=== PATIENT | female | born 1950 | race Caucasian/White ===

== ENCOUNTER 2017-04-03 05:50 | Inpatient (IN) | payer OTHER, SELFPAY ==
[2017-04-03] VITALS (16 sets, daily range): BP systolic 157–185; BP diastolic 71–100; PULSE 55–82; RESP 18–23; TEMP 36.6–37.5; O2SAT 96–100; BMI 26.5; BMI 25.7
--- NOTE | 2017-04-03 05:53 | EKG12_ITS ---
Test Reason : FALL Blood Pressure : / mmHG Vent. Rate : 056 BPM Atrial Rate : 056 BPM P-R Int : 160 ms QRS Dur : 074 ms QT Int : 434 ms P-R-T Axes : 079 059 100 degrees QTc Int : 418 ms Sinus bradycardia Nonspecific ST and T wave abnormality Abnormal ECG Confirmed by BAKARI BRYANT, MALISSA ([id number]), graphic editor COURTNEY RIOS ([id number]) on 04/05/2017 11:29:11 AM Referred By: ANIVAL Confirmed By:MALISSA VILLEGAS MD
--- NOTE | 2017-04-03 05:53 | CT_ITS ---
STUDY: CT BRAIN WITHOUT CONTRAST REASON FOR EXAM: Female, 66 years old. Left leg heaviness, numbness, then fell. Dizziness. History of hypertension, controlled RADIATION DOSAGE (If Supplied By Facility): CTDIvol = ( 44.99 ) mGy, DLP = ( 745.49 ) mGycm TECHNIQUE: Transaxial CT imaging of the brain was performed without administration of intravenous contrast material. Individualized dose optimization techniques were used for this CT. COMPARISON: None. FINDINGS: Normal soft tissue structures. Normal calvarium. Normal size ventricles and extra-axial spaces for the patient's age. There are areas of decreased attenuation within the white matter tracts of the supratentorial brain, consistent with microvascular disease changes. Remote right caudate infarct. Normal basal ganglia and thalami. Normal brainstem. Normal cerebellum. There is no intracranial hemorrhage. There are no findings of an acute ischemic infarction. Normal visualized paranasal sinuses. The bilateral mastoid air cells are clear. Total of 3 spot image is obtained with C-arm in the OR demonstrating open reduction and internal fixation (ORIF) of the femoral neck fracture with placement of metallic hardware. CT/Brain/Head without Contrast IMPRESSION: Chronic involutional changes of the brain. There is no acute intracranial pathology. Electronically Signed: Katie Greer MD at 6:34 EST , Service support ,
--- NOTE | 2017-04-03 05:58 | ED.DCSUM_ITS ---
- ER Visit Summary Date of Service: 04/03/17 Chief Complaint: Dizziness, left leg weakness, paresthesias History of Present Illness: The patient is a 66 F who woke up with some dizziness, left leg weakness and paresthesias. She states that when she woke up she felt dizzy and she tried to walk on her leg and she fell. She did not sustain any injuries from this. Her dizziness has improved but the leg weakness and paresthesias continue. She denies any headache. No nausea or vomiting. No history of strokes. Physical Examination: Vital signs are reviewed. HEENT exam unremarkable. Heart is regular rate and rhythm without murmurs. Lungs are clear to auscultation. Abdomen is soft and nontender. Extremities reveal no edema. NIH stroke scale is 2. She scores 1 left leg weakness and 1 paresthesias Test Results: CAT scan of the head reveals chronic changes. Laboratory studies are pending at this time. Emergency Department Course and Treatment: CAT scan shows no changes. I am concerned for possible TIA or stroke. Patient will require admission for further testing. Treatment Plan: Admission to the hospital Disposition: Admit Impression: Left leg weakness with paresthesias This note was generated with [employer] dictation software. It may contain incorrect words, spelling, and punctuation that were not noted in review of the chart prior to signing ED Disposition - Plan for ED Patient: Chief Complaint: Fall Referrals: Alix Bonner DO [Primary Care Provider] -
[2017-04-03 06:30] LABS: Bedside Glucose 90 mg/dL (70-110)
--- NOTE | 2017-04-03 06:50 | PCM.HP.STD ---
Problem List (1) COPD (chronic obstructive pulmonary disease) Status: Chronic Qualifiers: COPD type: unspecified COPD Qualified Code(s): J44.9 - Chronic obstructive pulmonary disease, unspecified (2) HTN (hypertension) Status: Chronic Qualifiers: Hypertension type: essential hypertension Qualified Code(s): I10 - Essential (primary) hypertension (3) Tobacco use Status: Chronic (4) left sided paresthesias Status: Acute (5) Left leg weakness Status: Acute History of Present Illness Date of Admission: 04/03/17 Chief Complaint: LLE weakness, L sided paresthesias The patient is a 66 y/o F w/ PMHx: Chronic COPD, HTN, Anxiety, Tobacco use who presents to the [facility] ED on 04/03/17 w/ history of awakening from bed at ~ 5 am, noted to feel dizzy, fell upon attempt to stand with following noted left leg weakness with paresthesias to the LLE and LUE. The dizziness improved, but she had ongoing weakness to the LLE and paresthesias to the L sided upper and lower extremity prompting ED presentation. NIH in the ED upon evaluation 2 for LLE weakness and paresthesias. Work-up in the ED included T 98.1, HR 60, BP 179/90, RR 21, 98% on RA, CT Head unremarkable. EKG SR rate 56. All ED labs pending upon admission request. Past Medical History Past Medical History (Chronic Problems): Chronic Problems COPD (chronic obstructive pulmonary disease) (Chronic) HTN (hypertension) (Chronic) Tobacco use (Chronic) Allergies No Known Allergies Allergy (Verified 04/03/17 05:56) Home Medications: Ambulatory Orders Medication Instructions Recorded Atenolol [Tenormin (beta shira)] 25 mg PO DAILY 04/03/17 Citalopram [Celexa] 20 mg PO DAILY 04/03/17 Fluticasone/Salmeterol [Advair 1 puff PO BID 04/03/17 250-50 Diskus] Lisinopril [Zestril] 10 mg PO DAILY 04/03/17 Surgical History: - - Appendectomy, BLTL. 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 Tobacco Use: Cigarettes Alcohol: None Drugs: None - *Family History Maternal History Items: No pertinent history Paternal History Items: Cancer Review of Systems Constitutional: Denies: Chills, Fever, Weight Change HEENT: Denies: Head Aches, Sinus Congestion, Sinus Drainage Cardiovascular: Denies: Chest Pain, Palpitations Respiratory: Denies: Cough, Shortness of breath at rest, Sputum production Gastrointestinal: Denies: Abdominal Pain, Nausea, Vomiting Genitourinary: Denies: Dysuria Musculoskeletal: Denies: Joint Pain, Joint Tenderness Skin: Denies: Rash, Wounds Neurological: Reports: Focal weakness, Numbness, Tingling Psychiatric: Reports: Anxiety. Denies: Depression, Homicidal Ideations, Suicidal Ideations Hematologic/ Lymphatic: Denies: Easy Bruising, Easy Bleeding VTE Information - Inpt Only VTE Present on Admission: No VTE Mechan Device Prophylaxis: SCD's VTE Pharm Prophylaxis ordered?: Yes Patient Problems: Active and Suspected Problems left sided paresthesias (Acute) Left leg weakness (Acute) Subjective: Seated upright in the ED bed, NAD, notes she has improved since initial presentation with less paresthesias and increased LLE strength. Objective: Physical Examination: General: awake, alert, oriented x 3 and cooperative, seated upright in the ED bed in no apparent distress. Skin: normal color, turgor, no icterus, cyanosis. HEENT: AT/NC, EOMI, PERRLA, mildly dry MM, no carotid bruits or JVD noted. Lungs: CTA bilaterally, moderate effort, mild decrease BL bases, no rales, ronchi or wheezing. Heart: Regular rate and rhythm; no gallop, rub audible. Abdomen: soft, NTTP, ND, normal BS, no HSM. Extremities: no cyanosis, clubbing, or edema. Neurological: patient awake, alert, oriented x 3; cognitive function intact; pupils equally reactive to light and accomodation; cranial nerves II-XII grossly normal, moving all 4 extremities, LLE 4/5 strength, minimal drift, FTN and HTN L mildly impaired, L sided paresthesias present, face not included, equiv babinski BL. Psychiatric: affect appears normal, no acute evidence of depressive or anxiety feelings. - Physical Exam Vital Signs Temp Pulse Resp BP Pulse Ox 98.1 F 59 L 21 H 176/90 H 98 04/03/17 05:51 04/03/17 05:53 04/03/17 05:53 04/03/17 05:53 04/03/17 05:58 Oxygen Flow Rate 2 Oxygen Delivery Method Nasal Cannula Weight: 149 lb 11.102 oz Body Mass Index (BMI) 26.5 Finger Stick Blood Glucose 90 POC Glucose 04/03/17 06:26 POC Glucose 90 Assessment/Plan Active and Suspected Problems left sided paresthesias (Acute) Left leg weakness (Acute) The patient is a 66 y/o F w/ PMHx: Chronic COPD, HTN, Anxiety, Tobacco use who presents to the [facility] ED on 04/03/17 w/ history of awakening from bed at ~ 5 am, noted to feel dizzy, fell, noted left leg weakness with paresthesias to the LLE. (1) L sided weakness (LLE) and L sided Paresthesias concerning for TIA/CVA: In the ED work-up included CT Head which was unremarkable. All labs are pending upon ED call for evaluation of patient. Patient was administered no medication in the ED. Will admit to PCU, will obtain MRI Brain, MRA Head and Neck, ECHO, PT/OT/Speech/Nutrition evaluation per protocol. Will allow permissive HTN, maintain on asa, add statin w/ pending AM FLP, fall precautions. Requested ED to administered ASA dose prior to admission. (2) Hypertension: Permissive pending MRI Brain. (3) Tobacco Abuse: Encouraged cessation, inpatient consultation per RT, NR if desired. (4) Anxiety: Continue home celexa regimen, ativan PRN w/ MRI as noted history of claustrophobia. (5) Chronic COPD: ATC duonebs, PRN albuterol, HOB, IS parameters. (6) DVT Prophylaxis: SCDs, lovenox. Code Visit OBSV E&M: 34542 Initial observation care L3
--- NOTE | 2017-04-03 06:59 | NURSING ---
DR DONALDSON FOR DR FLORIAN
--- NOTE | 2017-04-03 07:01 | HP.PCM_ITS ---
Problem List (1) COPD (chronic obstructive pulmonary disease) Status: Chronic Qualifiers: COPD type: unspecified COPD Qualified Code(s): J44.9 - Chronic obstructive pulmonary disease, unspecified (2) HTN (hypertension) Status: Chronic Qualifiers: Hypertension type: essential hypertension Qualified Code(s): I10 - Essential (primary) hypertension (3) Tobacco use Status: Chronic (4) left sided paresthesias Status: Acute (5) Left leg weakness Status: Acute History of Present Illness Date of Admission: 04/03/17 Chief Complaint: LLE weakness, L sided paresthesias The patient is a 66 y/o F w/ PMHx: Chronic COPD, HTN, Anxiety, Tobacco use who presents to the [facility] ED on 04/03/17 w/ history of awakening from bed at ~ 5 am, noted to feel dizzy, fell upon attempt to stand with following noted left leg weakness with paresthesias to the LLE and LUE. The dizziness improved, but she had ongoing weakness to the LLE and paresthesias to the L sided upper and lower extremity prompting ED presentation. NIH in the ED upon evaluation 2 for LLE weakness and paresthesias. Work-up in the ED included T 98.1, HR 60, BP 179/90, RR 21, 98% on RA, CT Head unremarkable. EKG SR rate 56. All ED labs pending upon admission request. Past Medical History Past Medical History (Chronic Problems): Chronic Problems COPD (chronic obstructive pulmonary disease) (Chronic) HTN (hypertension) (Chronic) Tobacco use (Chronic) Allergies No Known Allergies Allergy (Verified 04/03/17 05:56) Home Medications: Ambulatory Orders Medication Instructions Recorded Atenolol [Tenormin (beta shira)] 25 mg PO DAILY 04/03/17 Citalopram [Celexa] 20 mg PO DAILY 04/03/17 Fluticasone/Salmeterol [Advair 1 puff PO BID 04/03/17 250-50 Diskus] Lisinopril [Zestril] 10 mg PO DAILY 04/03/17 Surgical History: - - Appendectomy, BLTL. 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 Tobacco Use: Cigarettes Alcohol: None Drugs: None - *Family History Maternal History Items: No pertinent history Paternal History Items: Cancer Review of Systems Constitutional: Denies: Chills, Fever, Weight Change HEENT: Denies: Head Aches, Sinus Congestion, Sinus Drainage Cardiovascular: Denies: Chest Pain, Palpitations Respiratory: Denies: Cough, Shortness of breath at rest, Sputum production Gastrointestinal: Denies: Abdominal Pain, Nausea, Vomiting Genitourinary: Denies: Dysuria Musculoskeletal: Denies: Joint Pain, Joint Tenderness Skin: Denies: Rash, Wounds Neurological: Reports: Focal weakness, Numbness, Tingling Psychiatric: Reports: Anxiety. Denies: Depression, Homicidal Ideations, Suicidal Ideations Hematologic/ Lymphatic: Denies: Easy Bruising, Easy Bleeding VTE Information - Inpt Only VTE Present on Admission: No VTE Mechan Device Prophylaxis: SCD's VTE Pharm Prophylaxis ordered?: Yes Patient Problems: Active and Suspected Problems left sided paresthesias (Acute) Left leg weakness (Acute) Subjective: Seated upright in the ED bed, NAD, notes she has improved since initial presentation with less paresthesias and increased LLE strength. Objective: Physical Examination: General: awake, alert, oriented x 3 and cooperative, seated upright in the ED bed in no apparent distress. Skin: normal color, turgor, no icterus, cyanosis. HEENT: AT/NC, EOMI, PERRLA, mildly dry MM, no carotid bruits or JVD noted. Lungs: CTA bilaterally, moderate effort, mild decrease BL bases, no rales, ronchi or wheezing. Heart: Regular rate and rhythm; no gallop, rub audible. Abdomen: soft, NTTP, ND, normal BS, no HSM. Extremities: no cyanosis, clubbing, or edema. Neurological: patient awake, alert, oriented x 3; cognitive function intact; pupils equally reactive to light and accomodation; cranial nerves II-XII grossly normal, moving all 4 extremities, LLE 4/5 strength, minimal drift, FTN and HTN L mildly impaired, L sided paresthesias present, face not included, equiv babinski BL. Psychiatric: affect appears normal, no acute evidence of depressive or anxiety feelings. - Physical Exam Vital Signs Temp Pulse Resp BP Pulse Ox 98.1 F 59 L 21 H 176/90 H 98 04/03/17 05:51 04/03/17 05:53 04/03/17 05:53 04/03/17 05:53 04/03/17 05:58 Oxygen Flow Rate 2 Oxygen Delivery Method Nasal Cannula Weight: 149 lb 11.102 oz Body Mass Index (BMI) 26.5 Finger Stick Blood Glucose 90 POC Glucose 04/03/17 06:26 POC Glucose 90 Assessment/Plan Active and Suspected Problems left sided paresthesias (Acute) Left leg weakness (Acute) The patient is a 66 y/o F w/ PMHx: Chronic COPD, HTN, Anxiety, Tobacco use who presents to the [facility] ED on 04/03/17 w/ history of awakening from bed at ~ 5 am, noted to feel dizzy, fell, noted left leg weakness with paresthesias to the LLE. (1) L sided weakness (LLE) and L sided Paresthesias concerning for TIA/CVA: In the ED work-up included CT Head which was unremarkable. All labs are pending upon ED call for evaluation of patient. Patient was administered no medication in the ED. Will admit to PCU, will obtain MRI Brain, MRA Head and Neck, ECHO, PT /OT/Speech/Nutrition evaluation per protocol. Will allow permissive HTN, maintain on asa, add statin w/ pending AM FLP, fall precautions. Requested ED to administered ASA dose prior to admission. (2) Hypertension: Permissive pending MRI Brain. (3) Tobacco Abuse: Encouraged cessation, inpatient consultation per RT, NR if desired. (4) Anxiety: Continue home celexa regimen, ativan PRN w/ MRI as noted history of claustrophobia. (5) Chronic COPD: ATC duonebs, PRN albuterol, HOB, IS parameters. (6) DVT Prophylaxis: SCDs, lovenox. Code Visit OBSV E&M: 20751 Initial observation care L3
[2017-04-03] MEDS: Aspirin 325 MG Tablet PO (07:07)
--- NOTE | 2017-04-03 07:13 | NURSING ---
PCU OBS TIA/CVA WHITE
[2017-04-03 07:17] LABS: International Normalized Ratio 0.9; Partial Thromboplast Time 32.5 Seconds (24.1-36.2); Prothrombin Time (Protime)PT. 12.2 SECONDS (11.7-14.9)
[2017-04-03 07:29] LABS: Absolute Lymphocyte Count 0.61 X10^3/ul (0.83-4.51); Absolute Neutrophil Count 6.6 X10^3/uL (2.0-7.7); Basophil# 0.03 X10^3/uL; Basophil% 0.4 % (0-1); Eosinophil# 0.17 X10^3/uL; Eosinophils% 2.1 % (0-5); Hematocrit 36.4 % (37-47); Lymphocyte # 0.61 X10^3/ul (4.0); Lymphocyte % 7.6 % (19-41); Mean Corpuscular Hgb 30.1 pg (27.0-32.0); Mean Corpuscular Volume 91.2 fL (81-99); Mean Platelet Vol. 9.4 fl (6.2-12.0); Monocyte# 0.55 X10^3/uL; Monocyte% 6.9 % (0-10); Neutrophil # 6.64 X10^3/uL (2.7-7.7); Neutrophil % 82.9 % (47-70); Platelet Count 239 K/mm3 (150-450); RBC Distribution Width CV 14.1 % (11.6-14.6); RBC Distribution Width SD 46.2 fl (35.1-43.9); Red Blood Count 3.99 M/mm3 (4.2-5.4)
[2017-04-03 07:30] LABS: Anion Gap 5 (5-15); BUN 16 mg/dL (7-18); BUN/Creat Ratio 17.9 RATIO (10-20); Calcium,Total 8.4 mg/dL (8.5-10.1); Chloride 102 mmol/L (98-107); Creatinine, Serum 0.89 mg/dL (0.55-1.02); EST Glomerular Filtration Rate 67 mL/min (>60); Est Glom Filt Rate - Afr Amer 82 mL/min (>60); Estimated Creatinine Clearance 52.83 ml/min; Glucose 92 mg/dL (70-110); Potassium 4.4 mmol/L (3.5-5.1); Sodium Level 133 mmol/L (136-145)
[2017-04-03 07:37] LABS: POSITIVE COUNT NO; POSITIVE DIFFERENTIAL NO; POSITIVE MORPHOLOGY NO
--- NOTE | 2017-04-03 08:20 | ECHOD_ITS ---
Reason For Study: TIA/CVA Procedure This was a 2D Doppler, Color Flow transthoracic echocardiogram. The exam was of adequate technical quality. Exam performed portable in patient room. Left Ventricle Normal LV size. Left ventricular systolic function is normal. The estimated ejection fraction is 65 %. No regional wall motion abnormalities noted. Right Ventricle Normal RV size. Normal systolic function. Atria The left atrium is mildly enlarged. Normal right atrium. No doppler evidence for ASD. Bubble contrast study negative for right to left interatrial shunt. Mitral Valve There is no mitral annular calcification. Normal mitral valve. Mild (1+) mitral valve insufficiency. Tricuspid Valve Normal tricuspid valve. Mild tricuspid valve insufficiency. Right ventricular systolic pressure estimated to be 41 mmHg. Aortic Valve Trisinus/trileaflet aortic valve. Mild focal aortic valve thickening. Pulmonic Valve The pulmonic valve is not well visualized. Trivial pulmonic valve insufficiency. Great Vessels Normal sized aortic root. Calcified aortic root. Pericardium/Pleural No pericardial effusion. Medication Performed a rapid injection of agitated mix of 9 cc saline and 1cc air to assess for atrial septal defect. MMode/2D Measurements & Calculations LVIDd: 4.5 cm IVSd: 1.2 cm Ao root diam: 2.8 cm LVIDs: 3.3 cm LVPWd: 1.1 cm LA dimension: 3.4 cm RVDd: 3.8 cm FS: 27.7 % LAV(MOD-bp): 70.3 ml LA A4 area: 20.6 cm2 RA A4 area: 18.2 cm2 LAV(MOD-bp) Indexed: 41.2 ml/m2 LAV(MOD-sp2): 72.0 ml LAV(MOD-sp4): 65.0 ml Doppler Measurements & Calculations MV E max santiago: 71.4 cm/sec Lat Peak E' Santiago: 6.2 cm/sec Med Peak E' Santiago: 5.9 cm/sec MV A max santiago: 92.2 cm/sec E/E' lat: 11.5 E/E' med: 12.1 MV E/A: 0.77 Ao V2 max: 127.2 cm/sec LV V1 max: 103.2 cm/sec PA V2 max: 91.8 cm/sec Ao max P.5 mmHg LV V1 max P.3 mmHg TR max santiago: 305.4 cm/sec TR max P.6 mmHg Interpretation Summary Left ventricular systolic function is normal. The estimated ejection fraction is 65 %. The left atrium is mildly enlarged. Mild (1+) mitral valve insufficiency. Mild tricuspid valve insufficiency. Mild focal aortic valve thickening. Trivial pulmonic valve insufficiency. Calcified aortic root. Right ventricular systolic pressure estimated to be 41 mmHg. Ordering Physician: Barbara Avelar Referring Physician: Alix Bonner Performed By: Roxane Newton RDCS, RVT
--- NOTE | 2017-04-03 08:20 | MRI_ITS ---
STUDY: MRA NECK WITHOUT CONTRAST REASON FOR EXAM: Female, 66 years old. Weakness and dizziness. TECHNIQUE: Source images were obtained, MIPs were performed. The study was performed unenhanced. Most of the images are limited by patient motion. COMPARISON: None. FINDINGS: RIGHT CAROTID ARTERIES: Normal right common carotid artery (CCA). There is mild atherosclerotic plaque formation with minimal narrowing of the right carotid bulb. There is mild atherosclerotic plaque formation of the origin of the right internal carotid artery with less than 50% cross sectional diameter stenosis. Normal visualized cervical portion of the right internal carotid artery. Normal origin of the right external carotid artery (ECA). LEFT CAROTID ARTERIES: Normal left common carotid artery (CCA). There is mild atherosclerotic plaque formation with minimal narrowing of the left carotid bulb. There is mild atherosclerotic plaque formation of the origin of the left internal carotid artery with less than 50% cross sectional diameter stenosis. There is atherosclerotic tortuous elongation of the cervical portion of the left internal carotid artery. Normal origin of the left external carotid artery (ECA). VERTEBRAL ARTERIES: Normal antegrade flow within the bilateral vertebral artery without a hemodynamically significant stenosis. MRI/MRA Neck without Contrast IMPRESSION: Technically limited MRA due to patient motion without evidence for vascular occlusion. Electronically Signed: Veronica Salazar MD at 15:09 EST , Service support ,
--- NOTE | 2017-04-03 08:20 | MRI_ITS ---
STUDY: MRA OF THE HEAD WITHOUT CONTRAST REASON FOR EXAM: Female, 66 years old. Left-sided weakness and numbness. TECHNIQUE: 3-D lads-di-cgvpef (TOF) imaging was performed with MIPs. The study was performed unenhanced. COMPARISON: MRI the brain dated April 03, 2017. FINDINGS: Normal bilateral petrous carotid arteries. There is ectatic elongation and tortuosity of the right cavernous carotid artery, without a demonstrated hemodynamically significant stenosis. There is ectatic elongation and tortuosity of the left cavernous carotid artery, without a demonstrated hemodynamically significant stenosis. Normal right A1 segments of the anterior cerebral artery. Normal left A1 segments of the anterior cerebral artery. Normal intact anterior communicating artery (ACOM). Normal bilateral A2 segments of the anterior cerebral arteries. There is irregularity of the right M1 and M2 branches with minimal luminal narrowing, suggesting atherosclerotic plaque formation, without an occlusion. There is irregularity of the left M1 and M2 branches with minimal luminal narrowing, suggesting atherosclerotic plaque formation, without an occlusion. There is non-visualization of the right posterior communicating artery (PCOM). There is non-visualization of the left posterior communicating artery (PCOM). Normal bilateral vertebral arteries. There is tortuosity with elongation of the basilar artery. The visualized bilateral superior cerebellar (SCA) arteries are normal. Normal bilateral P1, P2 and visualized P3 segments of the posterior cerebral arteries. There is no demonstrated aneurysm of the red devil of [place]. There is no major vessel occlusion or hemodynamically significant stenosis. There are mild involutional changes of the brain. MRI/MRA Head ONLY without Contrast IMPRESSION: 1. 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 2. No MRA evidence for hemodynamically significant stenosis with generally ectatic arteries of the red devil of [place]. Electronically Signed: Veronica Salazar MD at 15:15 EST , Service support ,
--- NOTE | 2017-04-03 08:20 | MRI_ITS ---
STUDY: MRI BRAIN WITHOUT CONTRAST REASON FOR EXAM: Female, 66 years old. Left-sided weakness and numbness. TECHNIQUE: Standardized multiplanar fat and water weighted pulse sequences were obtained. COMPARISON: CT of the head dated April 03, 2017. FINDINGS: There is mild cerebral atrophy with widening of the extra-axial spaces and ventricular dilatation. There are multiple white matter hyperintensities, distributed throughout the deep white matter tracts of the cerebral hemispheres, consistent with moderate chronic white matter ischemic changes. Appears to be a small focus of restricted diffusion within the right thalamus as well as the posterior limb of the right internal capsule. This has the appearance of an acute infarct. Normal T2* images of the brain without demonstrated susceptibility artifact. There is no demonstrated hemosiderin stain. There are prominent perivascular spaces (PVS) involving the basal ganglia. Normal thalami. There is no extra-axial fluid accumulation. Normal flow voids within the major intracranial circulation suggesting patency by spin echo criteria. There is ectatic tortuosity of the cavernous carotid arteries. There is tortuosity of the vertebrobasilar arteries. Normal sella turcica, pituitary gland, infundibular stalk, optic chiasm and hypothalamus. Normal tectal plate and pineal gland. There are chronic white matter ischemic changes of the cosme. The midbrain and medulla are otherwise normal. Normal cerebellum. There are large basal cisterns. Normal bilateral temporal bones. Normal bilateral internal auditory canals. There are bilateral ocular lens implants with otherwise normal intraorbital contents. There is mucoperiosteal inflammatory disease of the paranasal sinuses consistent with mild chronic sinusitis. There is moderate deviation of nasal septum towards the right. Normal calvarium and skull base. Normal visualized soft tissue structures. Normal visualized upper cervical spine. MRI/Brain without Contrast IMPRESSION: 1. Involutional changes of the brain, as described above. 2. Acute infarct involving the right thalamus and posterior limb of the right internal capsule. Electronically Signed: Veronica Salazar MD at 15:31 EST , Service support ,
[2017-04-03 08:54] LABS: Magnesium 2.1 mg/dL (1.6-2.6); Thyroid Stim Hormone (TSH) 3.84 uIU/mL (0.358-3.74)
[2017-04-03] MEDS: 0.9% Normal Saline 1,000 ML 100 ML IV (10:21)
[2017-04-03] MEDS: Atorvastatin Calcium 80 MG Tablet PO (10:23)
[2017-04-03] MEDS: Famotidine 20 MG Tablet PO ×2 (10:23→23:35)
[2017-04-03] MEDS: Citalopram 20 MG Tablet PO (10:23)
[2017-04-03] MEDS: Enoxaparin 40 MG/0.4 ML Syringe SC (10:23)
[2017-04-03] MEDS: LORazepam 0.5 MG Tablet PO (11:44)
[2017-04-03] MEDS: Ipratropium/Albuterol Sulfate 3 ML AMPUL.NEB INHALATION (19:25)
[2017-04-04] VITALS (16 sets, daily range): BP systolic 151–182; BP diastolic 71–109; PULSE 63–79; RESP 16–20; TEMP 36.6–37.5; O2SAT 96–100; BMI 25.7
[2017-04-04 03:19] LABS: Mucous, Urine 0 SEEN /hpf (<or=2+); Red Blood Cells-Urine 0 SEEN /hpf (0-5)
[2017-04-04 03:40] LABS: Color, Urine Yellow (Yellow); Glucose, Dipstick Normal (Normal); Ketone-Dipstick Negative (Negative); Leukocyte Esterase-Dipstick Negative /ul (Negative); Nitrite-Dipstick Negative (Negative); Occult Blood-Urine 10 /ul (Negative); Protein-Dipstick 15 mg/dl (Negative); Urine Bilirubin Dipstick Negative (Negative); Urine Clarity Sl. Cloudy (Clear); Urine Urobilinogen Normal (Normal)
[2017-04-04 03:45] LABS: Bacteria 1+ /hpf (None Seen); Squamous Epithelial Cells - UA 0-5 SEEN /hpf (5-10); White Blood Cells 0-5 SEEN /hpf (0-5)
[2017-04-04 05:57] LABS: Cholesterol 140 mg/dL (200); High Density Lipoprotein 51 mg/dL; Triglycerides 69 mg/dL; Very Low Density Lipoprotein 14 mg/dL (5-40)
[2017-04-04] MEDS: Ipratropium/Albuterol Sulfate 3 ML AMPUL.NEB INHALATION ×3 (06:59→18:54)
--- NOTE | 2017-04-04 08:25 | PN_ITS ---
Patient Problems: Active and Suspected Problems left sided paresthesias (Acute) Left leg weakness (Acute) Subjective: Patient with no acute events overnight per self and per nursing report. Patient notes that she does have mildly increased strength in the left side but still having difficulty ambulating and does need assistance. She states that the paresthesias have mildly improved. She is amenable to acute rehab. Discussed results of MRI and plans for acute therapies. Noted pending neurology evaluation as well as rehab evaluation. Patient denies fevers, chills , nausea, emesis, abdominal pain, chest pain or dyspnea. Objective: Physical Examination: General: awake, alert, oriented x 3 and cooperative, seated upright in the bed in no apparent distress. Skin: normal color, turgor, no icterus, cyanosis. HEENT: AT/NC, EOMI, PERRLA, improved less dry MM. Lungs: CTA bilaterally, moderate effort, mild decrease BL bases, no rales, ronchi or wheezing. Heart: Regular rate and rhythm; no gallop, rub audible. Abdomen: soft, NTTP, ND, normal BS. Extremities: no cyanosis, clubbing, or edema. Neurological: patient awake, alert, oriented x 3; cognitive function intact; pupils equally reactive to light and accomodation; cranial nerves II-XII grossly normal, moving all 4 extremities, ongoing LLE 4/5 strength, still mild drift, FTN and HTN L mildly impaired, L sided paresthesias present but she notes subjectively improved, face remains uninvolved, equiv babinski BL, gait imbalance. Psychiatric: affect appears normal, no acute evidence of depressive or anxiety feelings. Vitals/I&O's: Vital Signs Temp Pulse Resp BP Pulse Ox 97.8 F 70 16 165/94 H 97 04/04/17 05:40 04/04/17 07:18 04/04/17 06:59 04/04/17 05:40 04/04/17 06:59 Oxygen Delivery Method Room Air Body Mass Index (BMI) 25.7 Intake and Output for Last 24 Hours 04/02/17 04/03/17 04/04/17 23:59 23:59 23:59 Intake Total 1080 / 1442 Balance 1080 / 1442 Laboratory Results 04/04/17 02:00: Urine Color Yellow, Urine Clarity Sl. Cloudy, Urine pH 7.0, Ur Specific [place] 1.010, Urine Protein 15 H, Urine Glucose (UA) Normal, Urine Ketones Negative, Urine Occult Blood 10 H, Urine Nitrite Negative, Urine Bilirubin Negative, Urine Urobilinogen Normal, Ur Leukocyte Esterase Negative, Urine RBC 0 SEEN, Urine WBC 0-5 SEEN, Ur Squamous Epith Cells 0-5 SEEN, Urine Bacteria 1+, Urine Mucus 0 SEEN 04/04/17 05:05: Triglycerides 69, Cholesterol 140, LDL Cholesterol 75, VLDL Cholesterol 14, HDL Cholesterol 51 Current Medications Acetaminophen (Tylenol) 650 mg PO Q4H PRN PRN PRN Reason: Headache/Temp>99F Acetaminophen (Tylenol) 650 mg RECTAL Q4H PRN PRN PRN Reason: Headache/Temp>99F Acetaminophen (Tylenol Liquid) 650 mg NG Q4H PRN PRN PRN Reason: Headache/Temp>99F Al Hydroxide/Mg Hydroxide (Mylanta Ii) 30 ml PO Q6H PRN PRN PRN Reason: Gastric burning Albuterol Sulfate (Ventolin Aerosols) 2.5 mg INHALATION Q2H PRN PRN PRN Reason: dyspnea, wheezing' Albuterol/Ipratropium (Duoneb) 3 ml INHALATION Q6HWA.RT [facility] Last Admin: 04/04/17 06:59 Dose: 3 ml Aspirin (Aspirin, Baby) 81 mg PO DAILY@0800 [facility] Last Admin: 04/03/17 10:23 Dose: Not Given Atorvastatin Calcium (Lipitor) 80 mg PO DAILY [facility] Last Admin: 04/03/17 10:23 Dose: 80 mg Citalopram Hydrobromide (Celexa) 20 mg PO DAILY [facility] Last Admin: 04/03/17 10:23 Dose: 20 mg Enoxaparin Sodium (Lovenox) 40 mg SC DAILY@1000 [facility] Last Admin: 04/03/17 10:23 Dose: 40 mg Famotidine (Pepcid) 20 mg PO BID [facility] Last Admin: 04/03/17 23:35 Dose: 20 mg Lisinopril (Zestril) 10 mg PO DAILY [facility] Magnesium Hydroxide (Milk Of Magnesia) 30 ml PO DAILY PRN PRN Reason: Constipation Ondansetron HCl (Zofran) 4 mg IV Q8H PRN PRN PRN Reason: NAUSEA Promethazine HCl (Phenergan (Ll)) 12.5 mg IV Q6H PRN PRN PRN Reason: NAUSEA/VOMITING Assessment/Plan Active and Suspected Problems left sided paresthesias (Acute) Left leg weakness (Acute) The patient is a 66 y/o F w/ PMHx: Chronic COPD, HTN, Anxiety, Tobacco use who presents to the [facility] ED on 04/03/17 w/ history of awakening from bed at ~ 5 am, noted to feel dizzy, fell, noted left leg weakness with paresthesias to the LLE. (1) L sided weakness (LLE) and L sided Paresthesias concerning for TIA/CVA: In the ED work-up included CT Head which was unremarkable. All labs are pending upon ED call for evaluation of patient. Patient was administered ASA in the ED following discussion with ED physician as not taking routinely at home. Admitted to PCU, MRI brain w/ acute infarct involving the right thalamic and posterior limb of the right internal capsule, MRA of the head with incomplete ramona of Cervantes with no MRA evidence of hemodynamically significant stenosis with generally ectatic arteries of the ramona of Cerv[place], MRA of the neck without evidence for vascular occlusion although technically limited secondary to motion, echo with normal LV systolic function, EF 65%, mildly enlarged LA, mild MV insufficiency, mild TV insufficiency, trivial PV insufficiency, RVSP 41 mmHg. Neurology consulted given these findings. PT, OT with likely acute rehabilitation recommendation. Will plan restart lisinopril 04/04/17 AM (24 hours out) with goal then <160/90 given timeline. FLP in AM. Mag normal. TSH mildly elevated with normal FT4, subclinical with repeat outpatient. (2) Hypertension: Will plan restart lisinopril 04/04/17 AM (24 hours out) with goal then <160/90 given timeline. (3) Tobacco Abuse: Encouraged cessation, inpatient consultation per RT, NR if desired. (4) Anxiety: Continue home celexa regimen, ativan PRN w/ MRI as noted history of claustrophobia. (5) Chronic COPD: ATC duonebs, PRN albuterol, HOB, IS parameters. (6) DVT Prophylaxis: SCDs, lovenox. Code Visit Inpatient E&M: 29609 Subs Hosp L2
[2017-04-04] MEDS: Famotidine 20 MG Tablet PO ×2 (09:37→21:25)
[2017-04-04] MEDS: Atorvastatin Calcium 80 MG Tablet PO (09:37)
[2017-04-04] MEDS: Lisinopril 10 MG Tablet PO (09:37)
[2017-04-04] MEDS: Aspirin 81 MG TAB.CHEW PO (09:37)
[2017-04-04] MEDS: Citalopram 20 MG Tablet PO (09:37)
[2017-04-04] MEDS: Enoxaparin 40 MG/0.4 ML Syringe SC (09:38)
--- NOTE | 2017-04-04 10:02 | CASEMGMT ---
YAJAIRA spoke with patient. She is normally independent. She has no equipment at home. Discussed [facility] 4th floor inpatient rehab unit. She seemed interested, but then her cell phone rang and she answered it. YAJAIRA then spoke with Dr Avelar and she said she spoke with patient also and she agreed to go to the rehab unit. YAJAIRA called Zara in the rehab unit and she will look at patient and start the pre-cert. Plan: [facility] 4th floor rehab unit pending insurance approval. Lynn COBB MSW
[2017-04-04] MEDS: Acetaminophen 325 MG Tablet 650 MG PO (14:36)
--- NOTE | 2017-04-04 14:40 | CON.PCM_ITS ---
Problem List (1) Stroke Status: Acute Qualifiers: Precerebral and cerebral artery: posterior cerebral artery Laterality of affected vessel: right Reason for Consult Date of Consultation: 04/04/17 Reason for Consultation: stroke History of Present Illness: The patient is a 66 year old CF with PMH HTN, COPD, Anxiety, panic attack admitted with acute onset left side weakness and numbness. Per patient she woke up yesterday (04/03/17) with left sided numbness and weakness, could not walk due to weakness, slid down the bed, NIHSS was 2 on admission, was not a tpa candidate, MRI brain done on admission showed acute right thalamic stroke/right IC stroke, MRA head/neck did not show any hemodynamically significant stenosis or occlusion. At present patient continues to have left sided weakness and numbness but denies any QUICK or visual disturbances. Patient lives with her , does not need any assistance for her ADLs, denies any frequent falls, does drive, does not use cane or walker to ambulate. Patient was not taking ASA prior to admission. [] Past Medical History Past Medical History (Chronic Problems): Chronic Problems COPD (chronic obstructive pulmonary disease) (Chronic) HTN (hypertension) (Chronic) Tobacco use (Chronic) Allergies No Known Allergies Allergy (Verified 04/03/17 05:56) Home Medications: Ambulatory Orders Medication Instructions Recorded Atenolol [Tenormin (beta shira)] 25 mg PO DAILY 04/03/17 Citalopram [Celexa] 20 mg PO DAILY 04/03/17 Fluticasone/Salmeterol [Advair 1 puff PO BID 04/03/17 250-50 Diskus] Lisinopril [Zestril] 10 mg PO DAILY 04/03/17 Surgical History: - - Appendectomy, BLTL. Psychiatric History: Anxiety [employer] History: No pertinent [employer] history Lives: Spouse/ Significant Other Smoking Status: Current some day smoker Tobacco Use: Cigarettes Alcohol: None Drugs: None - *Family History Maternal History Items: No pertinent history Paternal History Items: Cancer Review of Systems Constitutional: Reports: - - complete ROS negative except as documented in HPI Patient Problems: Active and Suspected Problems left sided paresthesias (Acute) Left leg weakness (Acute) Stroke (Acute) - Physical Exam General: Alert, Oriented x3, Cooperative HEENT: Atraumatic, PERRLA, EOMI, Normocephalic Neck: Supple, No JVD, Negative Carotid Bruits Lungs: Clear to auscultation, Normal air movement Cardiovascular: Regular rate, No murmurs Abdomen: Bowel Sounds Present, Soft, Non Tender Extremities: No edema, Capillary Refill Less than 3 Seconds Skin: No rashes, No breakdown Musculoskeletal: No Tenderness to Palpation of Joints or Extremities Neurological: - - consious, alert, AoA x3, CN 2-12 grossly intact, power 5/5 right UE/LE, 4/5 Left UE/LE, drift present Left UE, Plantars right flexor, left extensor, mild sensory loss to light touch left side, no cerebellar signs, Reflexes + B/L B/S/T/K/A, gait deferred, NIHSS 2 at present. Psych/Mental Status: Normal Affect, Appropriate Vital Signs Temp Pulse Resp BP Pulse Ox 98.3 F 65 18 168/84 H 99 04/04/17 13:35 04/04/17 13:35 04/04/17 13:35 04/04/17 13:35 04/04/17 13:35 Oxygen Delivery Method Room Air Body Mass Index (BMI) 25.7 Intake and Output for Last 24 Hours 04/02/17 04/03/17 04/04/17 23:59 23:59 23:59 Intake Total 1080 / 1442 360 / 360 Balance 1080 / 1442 360 / 360 Laboratory Tests Past 24 Hrs 04/04/17 04/04/17 02:00 05:05 Triglycerides 69 Cholesterol 140 LDL Cholesterol 75 VLDL Cholesterol 14 HDL Cholesterol 51 Urine Color Yellow Urine Clarity Sl. Cloudy Urine pH 7.0 Ur Specific [place] 1.010 Urine Protein 15 H Urine Glucose (UA) Normal Urine Ketones Negative Urine Occult Blood 10 H Urine Nitrite Negative Urine Bilirubin Negative Urine Urobilinogen Normal Ur Leukocyte Esterase Negative Urine RBC 0 SEEN Urine WBC 0-5 SEEN Ur Squamous Epith Cells 0-5 SEEN Urine Bacteria 1+ Urine Mucus 0 SEEN Assessment/Plan Active and Suspected Problems left sided paresthesias (Acute) Left leg weakness (Acute) Stroke (Acute) The patient is a 66 year old CF with PMH HTN, COPD, Anxiety, panic attack admitted with acute onset left side weakness and numbness. Per patient she woke up yesterday (04/03/17) with left sided numbness and weakness, could not walk due to weakness, slid down the bed, NIHSS was 2 on admission, was not a tpa candidate, MRI brain done on admission showed acute right thalamic stroke/right IC stroke, MRA head/neck did not show any hemodynamically significant stenosis or occlusion. At present patient continues to have left sided weakness and numbness but denies any QUICK or visual disturbances. Patient lives with her , does not need any assistance for her ADLs, denies any frequent falls, does drive, does not use cane or walker to ambulate. Patient was not taking ASA prior to admission. Impression Right Thalamic/IC acute stroke Plan -Recommend ASA 81 mg daily and Plavix 75 mg daily. Dual AP for 1 month then switch to single AP. Bleeding risks discussed in detail with the patient and family, they understand and agree with the same. -Recommend Lipitor 80 mg PO q hs -MRI brain and MRA head/neck images reviewed -TTE-EF 65%, mildly dilated LA, no PFO -LDL-75, [id number] -Recommend 30 day event recorder on discharge -Patient counseled stroke risk factors, counseled to stop smoking which increases stroke risk, patient understands the same. -Goal BP < 130/80 mmHg and Hba1c < 7%. -GI/DVT prophylaxis -Recommend PT/OT -Fall precautions. -Follow up with Neurology as outpatient in 2-3 weeks -Thank you for allowing us to participate in patients care and management I spent 60 minutes taking history, doing physical examination, reviewing medical records, coordinating care and counseling the patient. Code Visit Inpatient E&M: 26807 Init Hosp L3
[2017-04-04] MEDS: Clopidogrel Bisulfate 75 MG Tablet PO (16:25)
[2017-04-04] MEDS: HYDROCHLOROTHIAZIDE 12.5 MG CAPSULE PO (16:25)
[2017-04-05] VITALS (10 sets, daily range): BP systolic 166–176; BP diastolic 78–93; PULSE 63–85; RESP 16–20; TEMP 36.6–37.1; O2SAT 97–98; BMI 25.7
[2017-04-05] MEDS: Ipratropium/Albuterol Sulfate 3 ML AMPUL.NEB INHALATION ×2 (07:02→13:00)
--- NOTE | 2017-04-05 08:09 | PCM.PN.HOSP ---
Patient Problems: Active and Suspected Problems left sided paresthesias (Acute) Left leg weakness (Acute) Stroke (Acute) Vitals/I&O's: Vital Signs Temp Pulse Resp BP Pulse Ox 98.6 F 63 16 171/90 H 98 04/05/17 06:08 04/05/17 07:21 04/05/17 07:02 04/05/17 06:08 04/05/17 07:02 Oxygen Delivery Method Room Air Body Mass Index (BMI) 25.7 Intake and Output for Last 24 Hours 04/03/17 04/04/17 04/05/17 23:59 23:59 23:59 Intake Total 1080 / 1442 1195 / 1195 250 / 250 Output Total 750 / 750 400 / 400 Balance 1080 / 1442 445 / 445 -150 / -150 Current Medications Acetaminophen (Tylenol) 650 mg PO Q4H PRN PRN PRN Reason: Headache/Temp>99F Last Admin: 04/04/17 14:36 Dose: 650 mg Acetaminophen (Tylenol) 650 mg RECTAL Q4H PRN PRN PRN Reason: Headache/Temp>99F Acetaminophen (Tylenol Liquid) 650 mg NG Q4H PRN PRN PRN Reason: Headache/Temp>99F Al Hydroxide/Mg Hydroxide (Mylanta Ii) 30 ml PO Q6H PRN PRN PRN Reason: Gastric burning Albuterol Sulfate (Ventolin Aerosols) 2.5 mg INHALATION Q2H PRN PRN PRN Reason: dyspnea, wheezing' Albuterol/Ipratropium (Duoneb) 3 ml INHALATION Q6HWA.RT [facility] Last Admin: 04/05/17 07:02 Dose: 3 ml Aspirin (Aspirin, Baby) 81 mg PO DAILY@0800 [facility] Last Admin: 04/04/17 09:37 Dose: 81 mg Atorvastatin Calcium (Lipitor) 80 mg PO DAILY [facility] Last Admin: 04/04/17 09:37 Dose: 80 mg Citalopram Hydrobromide (Celexa) 20 mg PO DAILY [facility] Last Admin: 04/04/17 09:37 Dose: 20 mg Clopidogrel Bisulfate (Plavix) 75 mg PO DAILY [facility] Last Admin: 04/04/17 16:25 Dose: 75 mg Enoxaparin Sodium (Lovenox) 40 mg SC DAILY@1000 [facility] Last Admin: 04/04/17 09:38 Dose: 40 mg Famotidine (Pepcid) 20 mg PO BID [facility] Last Admin: 04/04/17 21:25 Dose: 20 mg Hydrochlorothiazide (Hydrochlorothiazide) 12.5 mg PO DAILY [facility] Last Admin: 04/04/17 16:25 Dose: 12.5 mg Lisinopril (Zestril) 10 mg PO DAILY [facility] Last Admin: 04/04/17 09:37 Dose: 10 mg Magnesium Hydroxide (Milk Of Magnesia) 30 ml PO DAILY PRN PRN Reason: Constipation Ondansetron HCl (Zofran) 4 mg IV Q8H PRN PRN PRN Reason: NAUSEA Promethazine HCl (Phenergan (Ll)) 12.5 mg IV Q6H PRN PRN PRN Reason: NAUSEA/VOMITING Assessment/Plan Active and Suspected Problems left sided paresthesias (Acute) Left leg weakness (Acute) Stroke (Acute) The patient is a 66 y/o F w/ PMHx: Chronic COPD, HTN, Anxiety, Tobacco use who presents to the [facility] ED on 04/03/17 w/ history of awakening from bed at ~ 5 am, noted to feel dizzy, fell, noted left leg weakness with paresthesias to the LLE. (1) L sided weakness (LLE) and L sided Paresthesias concerning for TIA/CVA: In the ED work-up included CT Head which was unremarkable. All labs are pending upon ED call for evaluation of patient. Patient was administered ASA in the ED following discussion with ED physician as not taking routinely at home. Admitted to PCU, MRI brain w/ acute infarct involving the right thalamic and posterior limb of the right internal capsule, MRA of the head with incomplete huslia of Cervantes with no MRA evidence of hemodynamically significant stenosis with generally ectatic arteries of the hus[place] of [place], MRA of the neck without evidence for vascular occlusion although technically limited secondary to motion, echo with normal LV systolic function, EF 65%, mildly enlarged LA, mild MV insufficiency, mild TV insufficiency, trivial PV insufficiency, RVSP 41 mmHg. TSH mildly elevated with normal FT4, subclinical with repeat outpatient. Mag normal. FLP obtained and maintained on statin. Neurology consulted with recommendations including ASA 81 mg daily and Plavix 75 mg daily w/ planned dual AP for 1 month then switch to single AP, recommendation 30 day event recorder upon discharge from acute rehabilitation, Goal BP < 130/80 mmHg and Hba1c < 7% with additionally plan for follow up with Neurology as outpatient in 2-3 weeks. PT, OT consulted with recommendation for acute rehabilitation, insurance approval pending. (2) Hypertension: BP above goal 130/80, will increase lisinopril and HCTZ, if needed will also add norvasc, PRN hydralazine. (3) Tobacco Abuse: Encouraged cessation, inpatient consultation per RT, NR if desired. (4) Anxiety: Continue home celexa regimen, ativan PRN w/ MRI as noted history of claustrophobia. (5) Chronic COPD: ATC duonebs, PRN albuterol, HOB, IS parameters. (6) DVT Prophylaxis: SCDs, lovenox.
--- NOTE | 2017-04-05 08:14 | PN_ITS ---
Patient Problems: Active and Suspected Problems left sided paresthesias (Acute) Left leg weakness (Acute) Stroke (Acute) Vitals/I&O's: Vital Signs Temp Pulse Resp BP Pulse Ox 98.6 F 63 16 171/90 H 98 04/05/17 06:08 04/05/17 07:21 04/05/17 07:02 04/05/17 06:08 04/05/17 07:02 Oxygen Delivery Method Room Air Body Mass Index (BMI) 25.7 Intake and Output for Last 24 Hours 04/03/17 04/04/17 04/05/17 23:59 23:59 23:59 Intake Total 1080 / 1442 1195 / 1195 250 / 250 Output Total 750 / 750 400 / 400 Balance 1080 / 1442 445 / 445 -150 / -150 Current Medications Acetaminophen (Tylenol) 650 mg PO Q4H PRN PRN PRN Reason: Headache/Temp>99F Last Admin: 04/04/17 14:36 Dose: 650 mg Acetaminophen (Tylenol) 650 mg RECTAL Q4H PRN PRN PRN Reason: Headache/Temp>99F Acetaminophen (Tylenol Liquid) 650 mg NG Q4H PRN PRN PRN Reason: Headache/Temp>99F Al Hydroxide/Mg Hydroxide (Mylanta Ii) 30 ml PO Q6H PRN PRN PRN Reason: Gastric burning Albuterol Sulfate (Ventolin Aerosols) 2.5 mg INHALATION Q2H PRN PRN PRN Reason: dyspnea, wheezing' Albuterol/Ipratropium (Duoneb) 3 ml INHALATION Q6HWA.RT [facility] Last Admin: 04/05/17 07:02 Dose: 3 ml Aspirin (Aspirin, Baby) 81 mg PO DAILY@0800 [facility] Last Admin: 04/04/17 09:37 Dose: 81 mg Atorvastatin Calcium (Lipitor) 80 mg PO DAILY [facility] Last Admin: 04/04/17 09:37 Dose: 80 mg Citalopram Hydrobromide (Celexa) 20 mg PO DAILY [facility] Last Admin: 04/04/17 09:37 Dose: 20 mg Clopidogrel Bisulfate (Plavix) 75 mg PO DAILY [facility] Last Admin: 04/04/17 16:25 Dose: 75 mg Enoxaparin Sodium (Lovenox) 40 mg SC DAILY@1000 [facility] Last Admin: 04/04/17 09:38 Dose: 40 mg Famotidine (Pepcid) 20 mg PO BID [facility] Last Admin: 04/04/17 21:25 Dose: 20 mg Hydrochlorothiazide (Hydrochlorothiazide) 12.5 mg PO DAILY [facility] Last Admin: 04/04/17 16:25 Dose: 12.5 mg Lisinopril (Zestril) 10 mg PO DAILY [facility] Last Admin: 04/04/17 09:37 Dose: 10 mg Magnesium Hydroxide (Milk Of Magnesia) 30 ml PO DAILY PRN PRN Reason: Constipation Ondansetron HCl (Zofran) 4 mg IV Q8H PRN PRN PRN Reason: NAUSEA Promethazine HCl (Phenergan (Ll)) 12.5 mg IV Q6H PRN PRN PRN Reason: NAUSEA/VOMITING Assessment/Plan Active and Suspected Problems left sided paresthesias (Acute) Left leg weakness (Acute) Stroke (Acute) The patient is a 66 y/o F w/ PMHx: Chronic COPD, HTN, Anxiety, Tobacco use who presents to the [facility] ED on 04/03/17 w/ history of awakening from bed at ~ 5 am, noted to feel dizzy, fell, noted left leg weakness with paresthesias to the LLE. (1) L sided weakness (LLE) and L sided Paresthesias concerning for TIA/CVA: In the ED work-up included CT Head which was unremarkable. All labs are pending upon ED call for evaluation of patient. Patient was administered ASA in the ED following discussion with ED physician as not taking routinely at home. Admitted to PCU, MRI brain w/ acute infarct involving the right thalamic and posterior limb of the right internal capsule, MRA of the head with incomplete red [place] of [place] with no MRA evidence of hemodynamically significant stenosis with generally ectatic arteries of the red devil of [place], MRA of the neck without evidence for vascular occlusion although technically limited secondary to motion, echo with normal LV systolic function, EF 65%, mildly enlarged LA, mild MV insufficiency, mild TV insufficiency, trivial PV insufficiency, RVSP 41 mmHg. TSH mildly elevated with normal FT4, subclinical with repeat outpatient. Mag normal. FLP obtained and maintained on statin. Neurology consulted with recommendations including ASA 81 mg daily and Plavix 75 mg daily w/ planned dual AP for 1 month then switch to single AP, recommendation 30 day event recorder upon discharge from acute rehabilitation, Goal BP < 130/80 mmHg and Hba1c < 7% with additionally plan for follow up with Neurology as outpatient in 2-3 weeks. PT, OT consulted with recommendation for acute rehabilitation, insurance approval pending. (2) Hypertension: BP above goal 130/80, will increase lisinopril and HCTZ, if needed will also add norvasc, PRN hydralazine. (3) Tobacco Abuse: Encouraged cessation, inpatient consultation per RT, NR if desired. (4) Anxiety: Continue home celexa regimen, ativan PRN w/ MRI as noted history of claustrophobia. (5) Chronic COPD: ATC duonebs, PRN albuterol, HOB, IS parameters. (6) DVT Prophylaxis: SCDs, lovenox.
[2017-04-05] MEDS: Lisinopril 20 MG Tablet PO (09:20)
[2017-04-05] MEDS: Aspirin 81 MG TAB.CHEW PO (09:20)
[2017-04-05] MEDS: hydroCHLOROthiazide 25 MG Tablet PO (09:20)
[2017-04-05] MEDS: Clopidogrel Bisulfate 75 MG Tablet PO (09:21)
[2017-04-05] MEDS: Enoxaparin 40 MG/0.4 ML Syringe SC (09:21)
[2017-04-05] MEDS: Atorvastatin Calcium 80 MG Tablet PO (09:21)
[2017-04-05] MEDS: Citalopram 20 MG Tablet PO (09:21)
[2017-04-05] MEDS: Famotidine 20 MG Tablet PO (09:21)
--- NOTE | 2017-04-05 11:40 | DCINST_ITS ---
- Discharge Diagnoses Current Active Problems: Current Active and Chronic Problems COPD (chronic obstructive pulmonary disease) (Chronic) HTN (hypertension) (Chronic) Tobacco use (Chronic) left sided paresthesias (Acute) Left leg weakness (Acute) Stroke (Acute) (1) L sided weakness (LLE) and L sided Paresthesias secondary to 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 You will use the following diet at home:: Cardiac Your food should be the consistency of: Regular Your liquids should be the consistency of: Regular/Thin Discharge Activity: Use Walker May resume sexual activity in: No Restrictions Weight Bearing Status: Weight bearing as tolerated Call your doctor if you observe: Fever of 101 or Higher, Inability to urinate, Inability to have a bowel movement, Shortness of breath, Dizziness, Fainting spells, Chest pain, Uncontrolled pain Instructions: Intimacy After Stroke, Effects of a Stroke on the Brain and Body , Stroke and Heart Disease, Controlling Your Cholesterol, Controlling High Blood Pressure, Why Do You Smoke?, Planning to Quit Smoking, Getting Support for Quitting Smoking, Coping with Smoking Withdrawal, Staying Smoke-Free Additional Instructions: Neurology consulted with recommendations including: (1 ) ASA 81 mg daily and Plavix 75 mg daily w/ planned dual AP for 1 month then switch to single AP. (2) Recommendation 30 day event recorder upon discharge from acute rehabilitation. (3) Goal BP < 130/80 mmHg and Hba1c < 7%. (4) Follow-up with Neurology as outpatient in 2-3 weeks. Allergies/Adverse Reactions: Allergies No Known Allergies Allergy (Verified 04/03/17 05:56) Medications to take at Discharge Citalopram [Celexa] 20 mg PO DAILY 04/03/17 Fluticasone/Salmeterol [Advair 250-50 Diskus] 1 puff PO BID 04/03/17 Acetaminophen Liquid [Tylenol Liquid] 650 mg NG Q4H PRN PRN udc 04/05/17 Albuterol Aerosols [Ventolin Aerosols] 2.5 mg INHALATION Q2H PRN PRN vial.neb. 04/05/17 Amlodipine [Norvasc] 10 mg PO DAILY tablet 04/05/17 Aspirin [Aspirin, Baby] 81 mg PO DAILY@0800 tab.chew 04/05/17 Atorvastatin Calcium [Lipitor] 80 mg PO DAILY tablet 04/05/17 Clopidogrel Bisulfate [Plavix] 75 mg PO DAILY tablet 04/05/17 Famotidine [Pepcid] 20 mg PO BID tablet 04/05/17 Hydrochlorothiazide [Hctz] 25 mg PO DAILY tablet 04/05/17 Lisinopril [Zestril] 20 mg PO DAILY tablet 04/05/17 Mag Hydrox/Al Hydrox/Simeth [Mylanta II] 30 ml PO Q6H PRN PRN udc 04/05/17 Primary Care Physician: Alix Bonner DO [Primary Care Provider] - Please follow up with your Primary Care Physician in: Follow-up within 3-5 days after Acute Rehab discharge. Please Follow Up With: Hermelindo Rodriguez MD When: Follow-up in 2-3 weeks after Acute Rehab discharge. Proposed Discharge Date: 04/05/17
[2017-04-05] MEDS: amLODIPine 10 MG Tablet PO (12:40)
--- NOTE | 2017-04-05 12:45 | PCM.DC.SUM ---
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 - Secondary Discharge Diagnosis Chronic Problems COPD (chronic obstructive pulmonary disease) (Chronic) HTN (hypertension) (Chronic) Tobacco use (Chronic) Hospital Course and Treatment Dr. Rodriguez Neurology Operations: None Procedures: 2-D Echocardiogram, EKG Summary of Care Provided: The patient is a 66 y/o F w/ PMHx: Chronic COPD, HTN, Anxiety, Tobacco use who presented to the [facility] ED on 04/03/17 w/ history of awakening from bed at ~ 5 am, noted to feel dizzy, fell, noted left leg weakness with paresthesias to the LLE. In the ED work-up included CT Head which was unremarkable. All labs are pending upon ED call for evaluation of patient. Patient was administered ASA in the ED following discussion with ED physician as not taking routinely at home. Admitted to PCU, MRI brain w/ acute infarct involving the right thalamic and posterior limb of the right internal capsule, MRA of the head with incomplete [place] of [place] with no MRA evidence of hemodynamically significant stenosis with generally ectatic arteries of the [place] of [place], MRA of the neck without evidence for vascular occlusion although technically limited secondary to motion, echo with normal LV systolic function, EF 65%, mildly enlarged LA, mild MV insufficiency, mild TV insufficiency, trivial PV insufficiency, RVSP 41 mmHg. TSH mildly elevated with normal FT4, subclinical with repeat outpatient. Mag normal. FLP obtained and maintained on statin. Neurology consulted with recommendations including ASA 81 mg daily and Plavix 75 mg daily w/ planned dual AP for 1 month then switch to single AP, recommendation 30 day event recorder upon discharge from acute rehabilitation, Goal BP < 130/80 mmHg and Hba1c < 7% with additionally plan for follow up with Neurology as outpatient in 2-3 weeks. PT, OT consulted with recommendation for acute rehabilitation which was arranged. During admission, continued to attempt to achieve BP above goal 130/80, with increased lisinopril and HCTZ as well as addition of norvasc. Recommended once appropriate for discharge from acute rehabilitation to follow-up not only with Neurology but also with PCP within 3-5 days. Discharge Activity: Use Walker May resume sexual activity in: No Restrictions Weight Bearing Status: Weight bearing as tolerated Call your doctor if you observe: Fever of 101 or Higher, Inability to urinate, Inability to have a bowel movement, Shortness of breath, Dizziness, Fainting spells, Chest pain, Uncontrolled pain Home Medications: Medications to take at Discharge Citalopram [Celexa] 20 mg PO DAILY 04/03/17 Fluticasone/Salmeterol [Advair 250-50 Diskus] 1 puff PO BID 04/03/17 Acetaminophen Liquid [Tylenol Liquid] 650 mg NG Q4H PRN PRN udc 04/05/17 Albuterol Aerosols [Ventolin Aerosols] 2.5 mg INHALATION Q2H PRN PRN vial.neb. 04/05/17 Amlodipine [Norvasc] 10 mg PO DAILY tablet 04/05/17 Aspirin [Aspirin, Baby] 81 mg PO DAILY@0800 tab.chew 04/05/17 Atorvastatin Calcium [Lipitor] 80 mg PO DAILY tablet 04/05/17 Clopidogrel Bisulfate [Plavix] 75 mg PO DAILY tablet 04/05/17 Famotidine [Pepcid] 20 mg PO BID tablet 04/05/17 Hydrochlorothiazide [Hctz] 25 mg PO DAILY tablet 04/05/17 Lisinopril [Zestril] 20 mg PO DAILY tablet 04/05/17 Mag Hydrox/Al Hydrox/Simeth [Mylanta II] 30 ml PO Q6H PRN PRN udc 04/05/17 Primary Care Physician: Alix Bonner DO [Primary Care Provider] - Please follow up with your Primary Care Physician in: Follow-up within 3-5 days after Acute Rehab discharge. Please Follow Up With: Hermelindo Rodriguez MD When: Follow-up in 2-3 weeks after Acute Rehab discharge. Patient Instructions: Intimacy After Stroke, Effects of a Stroke on the Brain and Body, Stroke and Heart Disease, Controlling Your Cholesterol, Controlling High Blood Pressure, Why Do You Smoke?, Planning to Quit Smoking, Getting Support for Quitting Smoking, Coping with Smoking Withdrawal, Staying Smoke-Free Disposition: Acute care Hospital Minutes spent on discharge:: 35 Patient Condition:: Fair Meaningful Use Info Meaningful Use Diagnoses (Choose all that apply): Ischemic CVA - CVA Therapy Assessed for PT,OT and/or ST?: Yes - Ischemic Stroke Antithrombotic order at d/c?: Yes Dx of Atrial fib/flutter?: No Anticoagulant at discharge?: No Reason anticoagulant not ordered: Treatment not Indicated Statins at discharge?: Yes Primary Dx Acute Ischemic CVA?: Yes IV tPA ordered during stay?: No Reason IV t-PA not ordered: Treatment not Indicated Code Visit Inpatient E&M: 76363 Disch Hosp
--- NOTE | 2017-04-05 12:48 | DS.PCM_ITS ---
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 - Secondary Discharge Diagnosis Chronic Problems COPD (chronic obstructive pulmonary disease) (Chronic) HTN (hypertension) (Chronic) Tobacco use (Chronic) Hospital Course and Treatment Dr. Rodriguez Neurology Operations: None Procedures: 2-D Echocardiogram, EKG Summary of Care Provided: The patient is a 66 y/o F w/ PMHx: Chronic COPD, HTN, Anxiety, Tobacco use who presented to the [facility] ED on 04/03/17 w/ history of awakening from bed at ~ 5 am, noted to feel dizzy, fell, noted left leg weakness with paresthesias to the LLE. In the ED work-up included CT Head which was unremarkable. All labs are pending upon ED call for evaluation of patient. Patient was administered ASA in the ED following discussion with ED physician as not taking routinely at home. Admitted to PCU, MRI brain w/ acute infarct involving the right thalamic and posterior limb of the right internal capsule, MRA of the head with incomplete [place] of [place] with no MRA evidence of hemodynamically significant stenosis with generally ectatic arteries of the [place] of [place], MRA of the neck without evidence for vascular occlusion although technically limited secondary to motion, echo with normal LV systolic function, EF 65%, mildly enlarged LA, mild MV insufficiency, mild TV insufficiency, trivial PV insufficiency, RVSP 41 mmHg. TSH mildly elevated with normal FT4, subclinical with repeat outpatient. Mag normal. FLP obtained and maintained on statin. Neurology consulted with recommendations including ASA 81 mg daily and Plavix 75 mg daily w/ planned dual AP for 1 month then switch to single AP, recommendation 30 day event recorder upon discharge from acute rehabilitation, Goal BP < 130/80 mmHg and Hba1c < 7% with additionally plan for follow up with Neurology as outpatient in 2-3 weeks. PT, OT consulted with recommendation for acute rehabilitation which was arranged. During admission, continued to attempt to achieve BP above goal 130/80, with increased lisinopril and HCTZ as well as addition of norvasc. Recommended once appropriate for discharge from acute rehabilitation to follow- up not only with Neurology but also with PCP within 3-5 days. Discharge Activity: Use Walker May resume sexual activity in: No Restrictions Weight Bearing Status: Weight bearing as tolerated Call your doctor if you observe: Fever of 101 or Higher, Inability to urinate, Inability to have a bowel movement, Shortness of breath, Dizziness, Fainting spells, Chest pain, Uncontrolled pain Home Medications: Medications to take at Discharge Citalopram [Celexa] 20 mg PO DAILY 04/03/17 Fluticasone/Salmeterol [Advair 250-50 Diskus] 1 puff PO BID 04/03/17 Acetaminophen Liquid [Tylenol Liquid] 650 mg NG Q4H PRN PRN udc 04/05/17 Albuterol Aerosols [Ventolin Aerosols] 2.5 mg INHALATION Q2H PRN PRN vial.neb. 04/05/17 Amlodipine [Norvasc] 10 mg PO DAILY tablet 04/05/17 Aspirin [Aspirin, Baby] 81 mg PO DAILY@0800 tab.chew 04/05/17 Atorvastatin Calcium [Lipitor] 80 mg PO DAILY tablet 04/05/17 Clopidogrel Bisulfate [Plavix] 75 mg PO DAILY tablet 04/05/17 Famotidine [Pepcid] 20 mg PO BID tablet 04/05/17 Hydrochlorothiazide [Hctz] 25 mg PO DAILY tablet 04/05/17 Lisinopril [Zestril] 20 mg PO DAILY tablet 04/05/17 Mag Hydrox/Al Hydrox/Simeth [Mylanta II] 30 ml PO Q6H PRN PRN udc 04/05/17 Primary Care Physician: Alix Bonner DO [Primary Care Provider] - Please follow up with your Primary Care Physician in: Follow-up within 3-5 days after Acute Rehab discharge. Please Follow Up With: Hermelindo Rodriguez MD When: Follow-up in 2-3 weeks after Acute Rehab discharge. Patient Instructions: Intimacy After Stroke, Effects of a Stroke on the Brain and Body, Stroke and Heart Disease, Controlling Your Cholesterol, Controlling High Blood Pressure, Why Do You Smoke?, Planning to Quit Smoking, Getting Support for Quitting Smoking, Coping with Smoking Withdrawal, Staying Smoke-Free Disposition: Acute care Hospital Minutes spent on discharge:: 35 Patient Condition:: Fair Meaningful Use Info Meaningful Use Diagnoses (Choose all that apply): Ischemic CVA - CVA Therapy Assessed for PT,OT and/or ST?: Yes - Ischemic Stroke Antithrombotic order at d/c?: Yes Dx of Atrial fib/flutter?: No Anticoagulant at discharge?: No Reason anticoagulant not ordered: Treatment not Indicated Statins at discharge?: Yes Primary Dx Acute Ischemic CVA?: Yes IV tPA ordered during stay?: No Reason IV t-PA not ordered: Treatment not Indicated Code Visit Inpatient E&M: 99605 Disch Hosp
== END 2017-04-05 14:55 | DRG 66 ==
LOC: ED 05:59 → PCU 07:35
PROVIDERS: Admitting Provider Family Medicine; Emergency Provider Emergency Medicine; Family Provider Family Medicine; PCP Family Medicine; Visit Provider Family Medicine
DX: I63.9 Cerebral infarction, unspecified (principal); F17.210 Nicotine dependence, cigarettes, uncomplicated; J44.9 Chronic obstructive pulmonary disease, unspecified; F40.240 Claustrophobia; I10 Essential (primary) hypertension; R29.702 NIHSS score 2; R20.2 Paresthesia of skin; G83.14 Monoplegia of lower limb affecting left nondominant side
CPT/HCPCS: 36415; 70450; 70544; 70547; 70551; 80048; 80061; 81001; 82962; 83735; 84439; 84443; 84484; 85025; 85610; 85730; 92523; 93005; 93306; 94640; 97110; 97116; 97162; 97165; 97535; 97802; 99285; 99406; J7030; A4216

== ENCOUNTER 2017-04-05 15:10 | Inpatient (IN) | payer OTHER, SELFPAY ==
[2017-04-05 14:51] VITALS: BP 166/82
[2017-04-05 15:32] VITALS: BP 166/85; PULSE 73; RESP 24; TEMP 36.9; O2SAT 97; BMI 25.2
--- NOTE | 2017-04-05 17:30 | NURSING ---
Aware she is a fall risk and must ask for staff assist and verbalized understanding.
[2017-04-05] MEDS: Acetaminophen 325 MG Tablet 650 MG PO (18:57)
[2017-04-05] MEDS: Ipratropium/Albuterol Sulfate 3 ML AMPUL.NEB INHALATION (19:07)
[2017-04-05 19:08] VITALS: PULSE 67; RESP 16; O2SAT 97
[2017-04-05 20:52] VITALS: BP 147/73; PULSE 71; RESP 16; TEMP 36.5; O2SAT 94
[2017-04-05] MEDS: Famotidine 20 MG Tablet PO (21:02)
[2017-04-05] MEDS: DiphenhydrAMINE 25 MG Capsule PO (21:02)
[2017-04-06] MEDS: Enoxaparin 40 MG/0.4 ML Syringe SC (05:12)
[2017-04-06 05:56] VITALS: BMI 25.2
--- NOTE | 2017-04-06 06:28 | PCM.PN.HOSP ---
Subjective: Patient with no acute events per self. She notes continued mild improvement of her L sided weakness as well as paresthesias. She still has notable gait difficulties per PT/OT last report. Transitioned to Rehab. BP improving on increased regimen with continued treatment for goal <130/80. Patient denies fevers, chills, nausea, emesis, abdominal pain, chest pain or dyspnea. Objective: Physical Examination: General: awake, alert, oriented x 3 and cooperative, seated upright, NAD. Skin: normal color, turgor, no icterus, cyanosis. HEENT: AT/NC, EOMI, PERRLA, MMM. Lungs: CTA bilaterally, moderate effort, mild decrease BL bases, no rales, ronchi or wheezing. Heart: Regular rate and rhythm; no gallop, rub audible. Abdomen: soft, NTTP, ND, normal BS. Extremities: no cyanosis, clubbing, or edema. Neurological: patient awake, alert, oriented x 3; cognitive function intact; pupils equally reactive to light and accomodation; cranial nerves II-XII grossly normal, moving all 4 extremities, ongoing LLE 4/5 strength, still mild drift, FTN and HTN L mildly impaired, L sided paresthesias present but she notes subjectively improved, face remains uninvolved, equiv babinski BL, gait imbalance. Psychiatric: affect appears normal, no acute evidence of depressive or anxiety feelings. Vitals/I&O's: Vital Signs Temp Pulse Resp BP Pulse Ox 97.7 F L 71 16 147/73 H 94 04/05/17 20:52 04/05/17 20:52 04/05/17 20:52 04/05/17 20:52 04/05/17 20:52 Oxygen Delivery Method Room Air Weight: 142 lb 4 oz Body Mass Index (BMI) 25.2 Finger Stick Blood Glucose 90 Intake and Output for Last 24 Hours 04/04/17 04/05/17 04/06/17 23:59 23:59 23:59 Intake Total 360 / 360 Output Total 300 / 300 Balance 360 / 360 -300 / -300 Current Medications Acetaminophen (Tylenol) 650 mg PO Q6H PRN PRN PRN Reason: Mild Pain (0-3/10)/Headache Last Admin: 04/05/17 18:57 Dose: 650 mg Al Hydroxide/Mg Hydroxide (Mylanta Ii) 30 ml PO Q6H PRN PRN PRN Reason: Gastric burning Albuterol Sulfate (Ventolin Aerosols) 2.5 mg INHALATION Q2H PRN PRN PRN Reason: dyspnea, wheezing' Albuterol/Ipratropium (Duoneb) 3 ml INHALATION Q6HWA.RT [facility] Last Admin: 04/05/17 19:07 Dose: 3 ml Amlodipine Besylate (Norvasc) 10 mg PO DAILY [facility] Aspirin (Aspirin, Baby) 81 mg PO DAILY@0800 [facility] Atorvastatin Calcium (Lipitor) 80 mg PO DAILY [facility] Bisacodyl (Dulcolax) 10 mg RECTAL .PRN X 1 PRN PRN Reason: Constipation Budesonide (Pulmicort Aerosol) 0.5 mg INHALATION Q12H.RT [facility] Citalopram Hydrobromide (Celexa) 20 mg PO DAILY [facility] Clopidogrel Bisulfate (Plavix) 75 mg PO DAILY [facility] Diphenhydramine HCl (Benadryl) 25 mg PO QHS PRN PRN PRN Reason: PRURITIS Last Admin: 04/05/17 21:02 Dose: 25 mg Enoxaparin Sodium (Lovenox) 40 mg SC DAILY@0600 [facility] Last Admin: 04/06/17 05:12 Dose: 40 mg Famotidine (Pepcid) 20 mg PO BID [facility] Last Admin: 04/05/17 21:02 Dose: 20 mg Hydrochlorothiazide (Hctz) 25 mg PO DAILY [facility] Lisinopril (Zestril) 20 mg PO DAILY [facility] Magnesium Hydroxide (Milk Of Magnesia) 30 ml PO .PRN X 1 PRN PRN Reason: Constipation Senna/Docusate Sodium (Senokot-S, Donita-Colace) 2 tablet PO DAILY [facility] Assessment/Plan The patient is a 66 y/o F w/ PMHx: Chronic COPD, HTN, Anxiety, Tobacco use who transitioned to Acute Rehabilitation on 04/05/17 following admission on 03/3017 with onset L sided weakness and paresthesias upon awakening that day. (1) L sided weakness (LLE) and L sided Paresthesias secondary to Acute infarct involving the right thalamic and posterior limb of the right internal capsule: MRI brain w/ acute infarct involving the right thalamic and posterior limb of the right internal capsule, MRA of the head with incomplete [place] of [place] with no MRA evidence of hemodynamically significant stenosis with generally ectatic arteries of the [place], MRA of the neck without evidence for vascular occlusion although technically limited secondary to motion, echo with normal LV systolic function, EF 65%, mildly enlarged LA, mild MV insufficiency, mild TV insufficiency, trivial PV insufficiency, RVSP 41 mmHg. TSH mildly elevated with normal FT4, subclinical with repeat outpatient. Mag normal. FLP obtained and maintained on statin. Neurology consulted with recommendations including ASA 81 mg daily and Plavix 75 mg daily w/ planned dual AP for 1 month then switch to single AP, recommendation 30 day event recorder upon discharge from acute rehabilitation, Goal BP < 130/80 mmHg and Hba1c < 7% with additionally plan for follow up with Neurology as outpatient in 2-3 weeks after rehabilitation discharge. (2) Hypertension: BP above goal 130/80 still, increased HCTZ/Lisinopril the day prior and added norvasc, will monitor today and if pressures do not improve will increase ACEI further. (3) Tobacco Abuse: Encouraged cessation, inpatient consultation per RT, NR if desired. (4) Anxiety: Continue home celexa regimen, ativan PRN. (5) Chronic COPD: ATC duonebs, PRN albuterol, HOB, IS parameters. (6) DVT Prophylaxis: SCDs, lovenox.
--- NOTE | 2017-04-06 06:33 | PN_ITS ---
Subjective: Patient with no acute events per self. She notes continued mild improvement of her L sided weakness as well as paresthesias. She still has notable gait difficulties per PT/OT last report. Transitioned to Rehab. BP improving on increased regimen with continued treatment for goal <130/80. Patient denies fevers, chills, nausea, emesis, abdominal pain, chest pain or dyspnea. Objective: Physical Examination: General: awake, alert, oriented x 3 and cooperative, seated upright, NAD. Skin: normal color, turgor, no icterus, cyanosis. HEENT: AT/NC, EOMI, PERRLA, MMM. Lungs: CTA bilaterally, moderate effort, mild decrease BL bases, no rales, ronchi or wheezing. Heart: Regular rate and rhythm; no gallop, rub audible. Abdomen: soft, NTTP, ND, normal BS. Extremities: no cyanosis, clubbing, or edema. Neurological: patient awake, alert, oriented x 3; cognitive function intact; pupils equally reactive to light and accomodation; cranial nerves II-XII grossly normal, moving all 4 extremities, ongoing LLE 4/5 strength, still mild drift, FTN and HTN L mildly impaired, L sided paresthesias present but she notes subjectively improved, face remains uninvolved, equiv babinski BL, gait imbalance. Psychiatric: affect appears normal, no acute evidence of depressive or anxiety feelings. Vitals/I&O's: Vital Signs Temp Pulse Resp BP Pulse Ox 97.7 F L 71 16 147/73 H 94 04/05/17 20:52 04/05/17 20:52 04/05/17 20:52 04/05/17 20:52 04/05/17 20:52 Oxygen Delivery Method Room Air Weight: 142 lb 4 oz Body Mass Index (BMI) 25.2 Finger Stick Blood Glucose 90 Intake and Output for Last 24 Hours 04/04/17 04/05/17 04/06/17 23:59 23:59 23:59 Intake Total 360 / 360 Output Total 300 / 300 Balance 360 / 360 -300 / -300 Current Medications Acetaminophen (Tylenol) 650 mg PO Q6H PRN PRN PRN Reason: Mild Pain (0-3/10)/Headache Last Admin: 04/05/17 18:57 Dose: 650 mg Al Hydroxide/Mg Hydroxide (Mylanta Ii) 30 ml PO Q6H PRN PRN PRN Reason: Gastric burning Albuterol Sulfate (Ventolin Aerosols) 2.5 mg INHALATION Q2H PRN PRN PRN Reason: dyspnea, wheezing' Albuterol/Ipratropium (Duoneb) 3 ml INHALATION Q6HWA.RT [facility] Last Admin: 04/05/17 19:07 Dose: 3 ml Amlodipine Besylate (Norvasc) 10 mg PO DAILY [facility] Aspirin (Aspirin, Baby) 81 mg PO DAILY@0800 [facility] Atorvastatin Calcium (Lipitor) 80 mg PO DAILY [facility] Bisacodyl (Dulcolax) 10 mg RECTAL .PRN X 1 PRN PRN Reason: Constipation Budesonide (Pulmicort Aerosol) 0.5 mg INHALATION Q12H.RT [facility] Citalopram Hydrobromide (Celexa) 20 mg PO DAILY [facility] Clopidogrel Bisulfate (Plavix) 75 mg PO DAILY [facility] Diphenhydramine HCl (Benadryl) 25 mg PO QHS PRN PRN PRN Reason: PRURITIS Last Admin: 04/05/17 21:02 Dose: 25 mg Enoxaparin Sodium (Lovenox) 40 mg SC DAILY@0600 [facility] Last Admin: 04/06/17 05:12 Dose: 40 mg Famotidine (Pepcid) 20 mg PO BID [facility] Last Admin: 04/05/17 21:02 Dose: 20 mg Hydrochlorothiazide (Hctz) 25 mg PO DAILY [facility] Lisinopril (Zestril) 20 mg PO DAILY [facility] Magnesium Hydroxide (Milk Of Magnesia) 30 ml PO .PRN X 1 PRN PRN Reason: Constipation Senna/Docusate Sodium (Senokot-S, Donita-Colace) 2 tablet PO DAILY [facility] Assessment/Plan The patient is a 66 y/o F w/ PMHx: Chronic COPD, HTN, Anxiety, Tobacco use who transitioned to Acute Rehabilitation on 04/05/17 following admission on 03/3017 with onset L sided weakness and paresthesias upon awakening that day. (1) L sided weakness (LLE) and L sided Paresthesias secondary to Acute infarct involving the right thalamic and posterior limb of the right internal capsule: MRI brain w/ acute infarct involving the right thalamic and posterior limb of the right internal capsule, MRA of the head with incomplete [place] of [place] with no MRA evidence of hemodynamically significant stenosis with generally ectatic arteries of the [place] of [place], MRA of the neck without evidence for vascular occlusion although technically limited secondary to motion, echo with normal LV systolic function, EF 65%, mildly enlarged LA, mild MV insufficiency, mild TV insufficiency, trivial PV insufficiency, RVSP 41 mmHg. TSH mildly elevated with normal FT4, subclinical with repeat outpatient. Mag normal. FLP obtained and maintained on statin. Neurology consulted with recommendations including ASA 81 mg daily and Plavix 75 mg daily w/ planned dual AP for 1 month then switch to single AP, recommendation 30 day event recorder upon discharge from acute rehabilitation, Goal BP < 130/80 mmHg and Hba1c < 7% with additionally plan for follow up with Neurology as outpatient in 2-3 weeks after rehabilitation discharge. (2) Hypertension: BP above goal 130/80 still, increased HCTZ/Lisinopril the day prior and added norvasc, will monitor today and if pressures do not improve will increase ACEI further. (3) Tobacco Abuse: Encouraged cessation, inpatient consultation per RT, NR if desired. (4) Anxiety: Continue home celexa regimen, ativan PRN. (5) Chronic COPD: ATC duonebs, PRN albuterol, HOB, IS parameters. (6) DVT Prophylaxis: SCDs, lovenox.
[2017-04-06 07:44] LABS: ALB/GLOB Ratio 0.8 RATIO (0.9-2.4); AST(SGOT) 25 U/L (15-37); Alanine Aminotransfer ALT/SGPT 22 U/L (13-56); Albumin, Serum 3.6 g/dL (3.2-5.0); Alkaline Phosphatase 69 U/L (45-117); Anion Gap 7 (5-15); BUN 13 mg/dL (7-18); BUN/Creat Ratio 13.5 RATIO (10-20); Calcium,Total 8.7 mg/dL (8.5-10.1); Chloride 95 mmol/L (98-107); Creatinine, Serum 0.96 mg/dL (0.55-1.02); EST Glomerular Filtration Rate 62 mL/min (>60); Est Glom Filt Rate - Afr Amer 75 mL/min (>60); Estimated Creatinine Clearance 48.97 ml/min; Globulin 4.6 g/dL (2.2-4.2); Glucose 102 mg/dL (70-110); Magnesium 1.9 mg/dL (1.6-2.6); Phosphorus 3.7 mg/dL (2.5-4.9); Potassium 3.9 mmol/L (3.5-5.1); Protein, Total 8.2 g/dL (6.4-8.2); Sodium Level 128 mmol/L (136-145)
[2017-04-06 07:45] LABS: Hemoglobin 12.7 g/dl (12.0-15.0); Mean Corp Hgb Conc 33.4 g/gl (32-36); Mean Corpuscular Volume 89.6 fL (81-99); Mean Platelet Vol. 9.6 fl (6.2-12.0); Platelet Count 239 K/mm3 (150-450); RBC Distribution Width SD 46.1 fl (35.1-43.9); Red Blood Count 4.24 M/mm3 (4.2-5.4); White Blood Count 6.2 K/mm3 (4.4-11.0)
[2017-04-06] MEDS: Atorvastatin Calcium 80 MG Tablet PO (07:47)
[2017-04-06] MEDS: Famotidine 20 MG Tablet PO ×2 (07:47→20:09)
[2017-04-06] MEDS: hydroCHLOROthiazide 25 MG Tablet PO (07:47)
[2017-04-06] MEDS: Lisinopril 20 MG Tablet PO (07:47)
[2017-04-06] MEDS: amLODIPine 10 MG Tablet PO (07:47)
[2017-04-06 07:48] LABS: Scan Indicated on CBC? Y/N NO
[2017-04-06] MEDS: Clopidogrel Bisulfate 75 MG Tablet PO (07:48)
[2017-04-06] MEDS: Aspirin 81 MG TAB.CHEW PO (07:48)
[2017-04-06] MEDS: Senna/Docusate Sodium 1 Tablet 2 TABLET PO (07:48)
[2017-04-06] MEDS: Citalopram 20 MG Tablet PO (07:48)
[2017-04-06] MEDS: Acetaminophen 325 MG Tablet 650 MG PO ×2 (07:52→15:25)
--- NOTE | 2017-04-06 08:59 | PCM.HP.COS ---
History of Present Illness Date of Admission: 04/05/17 Chief Complaint: CVA The patient is a 66 year old female, who was admitted to the rehab unit for rehabilitation after suffering a Right Thalamic/IC acute stroke. She has a history of HTN, COPD, Anxiety, panic attack. Per patient she woke up on Sunday, (04/03/17) with left sided numbness and weakness, could not walk due to weakness, slid down the bed, NIHSS was 2 on admission, was not a TPA candidate. The MRI brain done on admission showed acute right thalamic stroke/right IC stroke, MRA of her head/neck did not show any hemodynamically significant stenosis or occlusion. At present patient continues to have some left sided weakness which has improved greatly per the patient and some numbness. But denies any QUICK or visual disturbances. The Patient lives with her , in a [place] style home with 2 steps to get into the house. does not need any assistance for her ADLs, denies any frequent falls, does drive, does not use cane or walker to ambulate. She was previously completely functionally independent and is admitted to the rehab unit in order to restore her previous level of functional independence. She did not take aspirin previously at home. Past Medical History Past Medical History (Chronic Problems): Chronic Problems COPD (chronic obstructive pulmonary disease) (Chronic) HTN (hypertension) (Chronic) Tobacco use (Chronic) Allergies No Known Allergies Allergy (Verified 04/03/17 05:56) Home Medications: Ambulatory Orders Medication Instructions Recorded Citalopram [Celexa] 20 mg PO DAILY 04/03/17 Fluticasone/Salmeterol [Advair 1 puff PO BID 04/03/17 250-50 Diskus] Albuterol Aerosols [Ventolin 2.5 mg INHALATION Q2H PRN PRN 04/05/17 Aerosols] vial.neb. 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 Lives: Spouse/ Significant Other Smoking Status: Heavy Smoker (>10/day) Tobacco Use: Cigarettes Alcohol: Occasional Drugs: None - *Family History Maternal History Items: No pertinent history Paternal History Items: Cancer Review of Systems Constitutional: Denies: Chills, Fever, Weight Change HEENT: Denies: Head Aches, Sinus Congestion, Sinus Drainage Cardiovascular: Denies: Chest Pain, Palpitations Respiratory: Denies: Cough, Shortness of breath at rest, Sputum production Gastrointestinal: Denies: Abdominal Pain, Nausea, Vomiting Genitourinary: Denies: Dysuria Musculoskeletal: Denies: Joint Pain, Joint Tenderness Skin: Denies: Rash, Wounds Neurological: Denies: Numbness, Tingling, Focal weakness Psychiatric: Denies: Anxiety, Depression, Homicidal Ideations, Suicidal Ideations Hematologic/ Lymphatic: Denies: Easy Bruising, Easy Bleeding VTE Information - Inpt Only VTE Present on Admission: No VTE Mechan Device Prophylaxis: SCD's, Knee High LORENZO Hose VTE Pharm Prophylaxis ordered?: Yes - Physical Exam General: Alert, Oriented x3, Cooperative HEENT: Atraumatic, PERRLA, EOMI, Normocephalic Neck: Supple, No JVD, Negative Carotid Bruits Lungs: Clear to auscultation, Diminished, - - moderate effort, mild decrease BL bases, Cardiovascular: Regular rate, No murmurs Abdomen: Bowel Sounds Present, Soft, Non Tender Extremities: No edema, Capillary Refill Less than 3 Seconds Skin: No rashes, No breakdown Musculoskeletal: No Tenderness to Palpation of Joints or Extremities Neurological: Cranial nerves II-XII grossly intact, - - ongoing LLE 4/5 strength, still mild drift LUE, L sided paresthesias present but she notes subjectively improved, face remains uninvolved, gait imbalance. Psych/Mental Status: Normal Affect, Appropriate Vital Signs Temp Pulse Resp BP Pulse Ox 97.7 F L 71 16 147/73 H 94 04/05/17 20:52 04/05/17 20:52 04/05/17 20:52 04/05/17 20:52 04/05/17 20:52 Oxygen Delivery Method Room Air Weight: 64.524 kg Body Mass Index (BMI) 25.2 Finger Stick Blood Glucose 90 Intake and Output for Last 24 Hours 04/04/17 04/05/17 04/06/17 23:59 23:59 23:59 Intake Total 360 / 360 Output Total 300 / 300 Balance 360 / 360 -300 / -300 Laboratory Tests Past 24 Hrs 04/06/17 04/06/17 07:05 07:05 WBC 6.2 RBC 4.24 Hgb 12.7 Hct 38.0 MCV 89.6 MCH 30.0 MCHC 33.4 RDW 14.0 RDW Differential 46.1 H Plt Count 239 MPV 9.6 Sodium 128 L Potassium 3.9 Chloride 95 L Carbon Dioxide 26.0 Anion Gap 7 BUN 13 Creatinine 0.96 Estim Creat Clear Calc 48.97 Est GFR (MDRD) Af Amer 75 Est GFR (MDRD) Non-Af 62 BUN/Creatinine Ratio 13.5 Glucose 102 Calcium 8.7 Phosphorus 3.7 Magnesium 1.9 Total Bilirubin 0.60 AST 25 ALT 22 Alkaline Phosphatase 69 Total Protein 8.2 Albumin 3.6 Globulin 4.6 H Albumin/Globulin Ratio 0.8 L Active Medications Acetaminophen (Tylenol) 650 mg PO Q6H PRN PRN PRN Reason: Mild Pain (0-3/10)/Headache Last Admin: 04/06/17 07:52 Dose: 650 mg Al Hydroxide/Mg Hydroxide (Mylanta Ii) 30 ml PO Q6H PRN PRN PRN Reason: Gastric burning Albuterol Sulfate (Ventolin Aerosols) 2.5 mg INHALATION Q2H PRN PRN PRN Reason: dyspnea, wheezing' Albuterol/Ipratropium (Duoneb) 3 ml INHALATION Q6HWA.RT [facility] Last Admin: 04/06/17 07:30 Dose: Not Given Amlodipine Besylate (Norvasc) 10 mg PO DAILY [facility] Last Admin: 04/06/17 07:47 Dose: 10 mg Aspirin (Aspirin, Baby) 81 mg PO DAILY@0800 [facility] Last Admin: 04/06/17 07:48 Dose: 81 mg Atorvastatin Calcium (Lipitor) 80 mg PO DAILY [facility] Last Admin: 04/06/17 07:47 Dose: 80 mg Bisacodyl (Dulcolax) 10 mg RECTAL .PRN X 1 PRN PRN Reason: Constipation Budesonide (Pulmicort Aerosol) 0.5 mg INHALATION Q12H.RT [facility] Last Admin: 04/06/17 07:30 Dose: Not Given Citalopram Hydrobromide (Celexa) 20 mg PO DAILY [facility] Last Admin: 04/06/17 07:48 Dose: 20 mg Clopidogrel Bisulfate (Plavix) 75 mg PO DAILY [facility] Last Admin: 04/06/17 07:48 Dose: 75 mg Diphenhydramine HCl (Benadryl) 25 mg PO QHS PRN PRN PRN Reason: PRURITIS Last Admin: 04/05/17 21:02 Dose: 25 mg Enoxaparin Sodium (Lovenox) 40 mg SC DAILY@0600 [facility] Last Admin: 04/06/17 05:12 Dose: 40 mg Famotidine (Pepcid) 20 mg PO BID [facility] Last Admin: 04/06/17 07:47 Dose: 20 mg Hydrochlorothiazide (Hctz) 25 mg PO DAILY [facility] Last Admin: 04/06/17 07:47 Dose: 25 mg Lisinopril (Zestril) 20 mg PO DAILY [facility] Last Admin: 04/06/17 07:47 Dose: 20 mg Magnesium Hydroxide (Milk Of Magnesia) 30 ml PO .PRN X 1 PRN PRN Reason: Constipation Senna/Docusate Sodium (Senokot-S, Donita-Colace) 2 tablet PO DAILY [facility] Last Admin: 04/06/17 07:48 Dose: 2 tablet Assessment/Plan Debility s/p tight thalamic/IC stroke. goal of rehab is orthodox of functional independence. Plan: - Physical therapy for gait and balance - Occupational Therapy for ADLs - Speech therapy - As needed analgesics - Bowel protocol - Stroke prevention -> ASA 81 mg daily and Plavix 75 mg daily. Dual AP for 1 month then switch to single AP and Lipitor 80mg - DVT Prophylaxis: SCDs, lovenox. - TTE-EF 65%, mildly dilated LA, no PFO - -MRI brain and MRA head/neck MRA of the head with incomplete [place] with no MRA evidence of hemodynamically significant stenosis with generally ectatic arteries of the [place], MRA of the neck without evidence for vascular occlusion - Will obtain a 30 day event monitor on discharge - Goal of BP <130/80, and A1C < 7% - Hypertension: BP above goal 130/80 still, increased HCTZ/Lisinopril the day prior and added norvasc, will monitor today and if pressures do not improve will increase ACEI further. - Tobacco Abuse: Encouraged cessation, inpatient consultation per RT, NR if desired. - Anxiety: Continue home Celexa regimen, Ativan PRN. - Chronic COPD: ATC duonebs, PRN albuterol, HOB, IS parameters. - Hyponatremia -> Na 127, hospitalist ordered a Liter of NS
--- NOTE | 2017-04-06 09:02 | HP.PCM.COS_ITS ---
History of Present Illness Date of Admission: 04/05/17 Chief Complaint: CVA The patient is a 66 year old female, who was admitted to the rehab unit for rehabilitation after suffering a Right Thalamic/IC acute stroke. She has a history of HTN, COPD, Anxiety, panic attack. Per patient she woke up on Sunday, (04/03/17) with left sided numbness and weakness, could not walk due to weakness, slid down the bed, NIHSS was 2 on admission, was not a TPA candidate. The MRI brain done on admission showed acute right thalamic stroke/ right IC stroke, MRA of her head/neck did not show any hemodynamically significant stenosis or occlusion. At present patient continues to have some left sided weakness which has improved greatly per the patient and some numbness. But denies any QUICK or visual disturbances. The Patient lives with her , in [place] home with 2 steps to get into the house. does not need any assistance for her ADLs, denies any frequent falls, does drive, does not use cane or walker to ambulate. She was previously completely functionally independent and is admitted to the rehab unit in order to restore her previous level of functional independence. She did not take aspirin previously at home. Past Medical History Past Medical History (Chronic Problems): Chronic Problems COPD (chronic obstructive pulmonary disease) (Chronic) HTN (hypertension) (Chronic) Tobacco use (Chronic) Allergies No Known Allergies Allergy (Verified 04/03/17 05:56) Home Medications: Ambulatory Orders Medication Instructions Recorded Citalopram [Celexa] 20 mg PO DAILY 04/03/17 Fluticasone/Salmeterol [Advair 1 puff PO BID 04/03/17 250-50 Diskus] Albuterol Aerosols [Ventolin 2.5 mg INHALATION Q2H PRN PRN 04/05/17 Aerosols] vial.neb. 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 Lives: Spouse/ Significant Other Smoking Status: Heavy Smoker (>10/day) Tobacco Use: Cigarettes Alcohol: Occasional Drugs: None - *Family History Maternal History Items: No pertinent history Paternal History Items: Cancer Review of Systems Constitutional: Denies: Chills, Fever, Weight Change HEENT: Denies: Head Aches, Sinus Congestion, Sinus Drainage Cardiovascular: Denies: Chest Pain, Palpitations Respiratory: Denies: Cough, Shortness of breath at rest, Sputum production Gastrointestinal: Denies: Abdominal Pain, Nausea, Vomiting Genitourinary: Denies: Dysuria Musculoskeletal: Denies: Joint Pain, Joint Tenderness Skin: Denies: Rash, Wounds Neurological: Denies: Numbness, Tingling, Focal weakness Psychiatric: Denies: Anxiety, Depression, Homicidal Ideations, Suicidal Ideations Hematologic/ Lymphatic: Denies: Easy Bruising, Easy Bleeding VTE Information - Inpt Only VTE Present on Admission: No VTE Mechan Device Prophylaxis: SCD's, Knee High LORENZO Hose VTE Pharm Prophylaxis ordered?: Yes - Physical Exam General: Alert, Oriented x3, Cooperative HEENT: Atraumatic, PERRLA, EOMI, Normocephalic Neck: Supple, No JVD, Negative Carotid Bruits Lungs: Clear to auscultation, Diminished, - - moderate effort, mild decrease BL bases, Cardiovascular: Regular rate, No murmurs Abdomen: Bowel Sounds Present, Soft, Non Tender Extremities: No edema, Capillary Refill Less than 3 Seconds Skin: No rashes, No breakdown Musculoskeletal: No Tenderness to Palpation of Joints or Extremities Neurological: Cranial nerves II-XII grossly intact, - - ongoing LLE 4/5 strength , still mild drift LUE, L sided paresthesias present but she notes subjectively improved, face remains uninvolved, gait imbalance. Psych/Mental Status: Normal Affect, Appropriate Vital Signs Temp Pulse Resp BP Pulse Ox 97.7 F L 71 16 147/73 H 94 04/05/17 20:52 04/05/17 20:52 04/05/17 20:52 04/05/17 20:52 04/05/17 20:52 Oxygen Delivery Method Room Air Weight: 64.524 kg Body Mass Index (BMI) 25.2 Finger Stick Blood Glucose 90 Intake and Output for Last 24 Hours 04/04/17 04/05/17 04/06/17 23:59 23:59 23:59 Intake Total 360 / 360 Output Total 300 / 300 Balance 360 / 360 -300 / -300 Laboratory Tests Past 24 Hrs 04/06/17 04/06/17 07:05 07:05 WBC 6.2 RBC 4.24 Hgb 12.7 Hct 38.0 MCV 89.6 MCH 30.0 MCHC 33.4 RDW 14.0 RDW Differential 46.1 H Plt Count 239 MPV 9.6 Sodium 128 L Potassium 3.9 Chloride 95 L Carbon Dioxide 26.0 Anion Gap 7 BUN 13 Creatinine 0.96 Estim Creat Clear Calc 48.97 Est GFR (MDRD) Af Amer 75 Est GFR (MDRD) Non-Af 62 BUN/Creatinine Ratio 13.5 Glucose 102 Calcium 8.7 Phosphorus 3.7 Magnesium 1.9 Total Bilirubin 0.60 AST 25 ALT 22 Alkaline Phosphatase 69 Total Protein 8.2 Albumin 3.6 Globulin 4.6 H Albumin/Globulin Ratio 0.8 L Active Medications Acetaminophen (Tylenol) 650 mg PO Q6H PRN PRN PRN Reason: Mild Pain (0-3/10)/Headache Last Admin: 04/06/17 07:52 Dose: 650 mg Al Hydroxide/Mg Hydroxide (Mylanta Ii) 30 ml PO Q6H PRN PRN PRN Reason: Gastric burning Albuterol Sulfate (Ventolin Aerosols) 2.5 mg INHALATION Q2H PRN PRN PRN Reason: dyspnea, wheezing' Albuterol/Ipratropium (Duoneb) 3 ml INHALATION Q6HWA.RT [facility] Last Admin: 04/06/17 07:30 Dose: Not Given Amlodipine Besylate (Norvasc) 10 mg PO DAILY [facility] Last Admin: 04/06/17 07:47 Dose: 10 mg Aspirin (Aspirin, Baby) 81 mg PO DAILY@0800 [facility] Last Admin: 04/06/17 07:48 Dose: 81 mg Atorvastatin Calcium (Lipitor) 80 mg PO DAILY [facility] Last Admin: 04/06/17 07:47 Dose: 80 mg Bisacodyl (Dulcolax) 10 mg RECTAL .PRN X 1 PRN PRN Reason: Constipation Budesonide (Pulmicort Aerosol) 0.5 mg INHALATION Q12H.RT [facility] Last Admin: 04/06/17 07:30 Dose: Not Given Citalopram Hydrobromide (Celexa) 20 mg PO DAILY [facility] Last Admin: 04/06/17 07:48 Dose: 20 mg Clopidogrel Bisulfate (Plavix) 75 mg PO DAILY [facility] Last Admin: 04/06/17 07:48 Dose: 75 mg Diphenhydramine HCl (Benadryl) 25 mg PO QHS PRN PRN PRN Reason: PRURITIS Last Admin: 04/05/17 21:02 Dose: 25 mg Enoxaparin Sodium (Lovenox) 40 mg SC DAILY@0600 [facility] Last Admin: 04/06/17 05:12 Dose: 40 mg Famotidine (Pepcid) 20 mg PO BID [facility] Last Admin: 04/06/17 07:47 Dose: 20 mg Hydrochlorothiazide (Hctz) 25 mg PO DAILY [facility] Last Admin: 04/06/17 07:47 Dose: 25 mg Lisinopril (Zestril) 20 mg PO DAILY [facility] Last Admin: 04/06/17 07:47 Dose: 20 mg Magnesium Hydroxide (Milk Of Magnesia) 30 ml PO .PRN X 1 PRN PRN Reason: Constipation Senna/Docusate Sodium (Senokot-S, Donita-Colace) 2 tablet PO DAILY [facility] Last Admin: 04/06/17 07:48 Dose: 2 tablet Assessment/Plan Debility s/p tight thalamic/IC stroke. goal of rehab is oriental orthodox of functional independence. Plan: - Physical therapy for gait and balance - Occupational Therapy for ADLs - Speech therapy - As needed analgesics - Bowel protocol - Stroke prevention -> ASA 81 mg daily and Plavix 75 mg daily. Dual AP for 1 month then switch to single AP and Lipitor 80mg - DVT Prophylaxis: SCDs, lovenox. - TTE-EF 65%, mildly dilated LA, no PFO - -MRI brain and MRA head/neck MRA of the head with incomplete [place] with no MRA evidence of hemodynamically significant stenosis with generally ectatic arteries of the [place], MRA of the neck without evidence for vascular occlusion - Will obtain a 30 day event monitor on discharge - Goal of BP <130/80, and A1C < 7% - Hypertension: BP above goal 130/80 still, increased HCTZ/Lisinopril the day prior and added norvasc, will monitor today and if pressures do not improve will increase ACEI further. - Tobacco Abuse: Encouraged cessation, inpatient consultation per RT, NR if desired. - Anxiety: Continue home Celexa regimen, Ativan PRN. - Chronic COPD: ATC duonebs, PRN albuterol, HOB, IS parameters. - Hyponatremia -> Na 127, hospitalist ordered a Liter of NS
[2017-04-06 10:00] VITALS: BP 142/83; PULSE 86; RESP 18; TEMP 36.9; O2SAT 96
--- NOTE | 2017-04-06 10:57 | CASEMGMT ---
Social Work Offered to contact patient spouse to introduce social work role. Patient declining at this time. Patient aware of team meeting on and plans to notify patient spouse. Support given. Laurel SANTIAGO, PRODUCTION GEAR CUTTER
[2017-04-06 11:43] VITALS: BMI 25.2
[2017-04-06 13:05] VITALS: PULSE 89; RESP 18; O2SAT 96
[2017-04-06] MEDS: Ipratropium/Albuterol Sulfate 3 ML AMPUL.NEB INHALATION ×2 (13:05→19:35)
--- NOTE | 2017-04-06 15:08 | PCM.RU.PYE ---
Admission Information Status Changes from Prescreening?: No changes Identified Actual Problem List:: Mobility Impaired, Self Care Deficit, BP, Hypertension Potential Problem List:: DVT, Bleeding, Infection, UTI, Aspiration, Falls, Skin Integrity, Depression Risk of Complications DVT: LMWH, LORENZO Hose, Sequential Compression Device Bleeding: Monitor Lab Values, Nursing to Teach Precautions for anti-coagulation therapy., Wound, if applicable, to be assessed every shift., Stroke patients assessed for lethargy or change in status. Infection: Clinical Staff to Monitor for S/S of infection:, S/S of infection include fever, redness, warmth, etc. Urinary Tract Infection: Monitor for frequency, burning, discomfort, or incontinence., Nursing will obtain urine sample for urinalysis and C&S when ordered. Aspiration: Clinical staff will monitor for coughing, drooling, congestion., Speech will evaluate swallowing and dsyphasia., Nursing will monitor patient swallowing during meals. Falls: Patient will be evaluated for Fall Precautions, Patient will be placed on Fall Precautions as indicated per protocol. Skin Breakdown: Nursing will assess skin daily using assessment tool., Nursing will place on Skin Breakdown Precautions as indicated. Pain: Clinical staff will assess patient's pain level per protocol., Medications will be given, if needed, and the pain level reassessed., Other methods: Massage, distraction, decrease stimulus, etc. used PRN. Plan of Care Patient requires physician specializing in physical medicine and rehab oversight to provide close medical supervision of rehab issues including: Pain Management, Sleep Problems, Bowel and Bladder, Medical and co-morbidity Management, DVT prophylaxis, Rehabilitation Leadership, Coordination of treatment team Patient needs Physical Therapy: For a minimum of 1 hour, At least 5 out of 7 days Patient needs Physical Therapy to improve:: Mobility, Mobility, Mobility, Strengthening, Transfers, Stretching, ROM, Endurance, Stairs, Gait, Balance Patient needs Occupational Therapy: For a minimum of 1 hour, At least 5 out of 7 days Patient needs Occupational Therapy to improve ADL's incl.: Eating, Grooming, Bathing, Dressing, Toileting, Toilet transfers, Community Reintegration, Higher functioning activities, Household tasks, Adaptive Equipment, Splinting, Other activities as determined Patient requires speech therapy: For a minimum of 1 hour, At least 5 out of 7 days Patient requires speech therapy for: Swallowing, Cognition, Language Skills, Compensatory Strategies Patient requires 25/09 Rehabilitation Nursing for: Pain Issues, Identifying and preventing risk factors, Monitoring and reporting current medical conditions, Assisting with ambulation, transfer, and all ADL's, Teaching patients about disease process and medications, Family teaching, Providing safe environment, Bowel and Bladder Issues, Skin integrity, Medication Management Patient needs Dental Chairside Assistant/ Case Management for: Discharge Planning, Arranging Home Equipment or Services, Family Interventions Patient needs Dietary and Nutrition Services for: Adequate Nutrition, Nutritional Supplements, Nutritional Education Goals Patient will remain: free from falls, or injury at time of discharge. Patient will perform bed mobility at: MOD I level of assist. Patient will complete transfers from bed to chair at: MOD I level of assist. Patient will ambulate: 100 feet, with MOD I assist, with LRD Patient will complete upper body dressing at: MOD I level of assist. Patient will complete lower body dressing at: MOD I level of assist. Patient will complete toileting at: MOD I level of assist. Patient will perform bathing at: MOD I level of assist. Patient will complete grooming at: MOD I level of assist. Patient will complete home management skills at: MOD I level of assist. Patient will achieve: 12 stairs, at MOD I assist Patient will have pain level of: of 3 or less Patient's skin will: remain intact, free from infection. Patient will receive: adequate nutrition. Discharge Planning Pt Prognosis for Sig. Practical Improv. w/in Reasonable Time: Good Estimated Length of stay (days): 14 Anticipated D/C Destination: Home with Outpt Therapy Was Preadmission Assessment Accurate?: Yes
[2017-04-06] MEDS: 0.9% Normal Saline 1,000 ML 999 ML IV (15:44)
--- NOTE | 2017-04-06 15:45 | NURSING ---
inserted 24g into R. forearm, 1 attempt, dressing applied, IV secured, bolus of NS infusing, pt tolerating well.
[2017-04-06 19:35] VITALS: PULSE 87; RESP 20
[2017-04-06] MEDS: Budesonide Respules 0.5 MG/2 ML AMPUL.NEB. INHALATION (19:35)
[2017-04-06 20:06] VITALS: BP 138/77; PULSE 70; RESP 18; TEMP 36.5; O2SAT 96
[2017-04-06] MEDS: DiphenhydrAMINE 25 MG Capsule PO (20:09)
[2017-04-06 20:10] VITALS: BMI 25.2
--- NOTE | 2017-04-07 01:23 | NURSING ---
Reviewed and agree with LPNs fims and handoff
--- NOTE | 2017-04-07 04:33 | NURSING ---
Saline loc found dislodged. Removed (tape still on). No bleeding noted
[2017-04-07] MEDS: Enoxaparin 40 MG/0.4 ML Syringe SC (05:44)
[2017-04-07] MEDS: Acetaminophen 325 MG Tablet 650 MG PO ×2 (06:35→17:54)
[2017-04-07 08:17] VITALS: BP 140/85; PULSE 76; RESP 16; TEMP 36.5; O2SAT 98
[2017-04-07] MEDS: Aspirin 81 MG TAB.CHEW PO (08:28)
[2017-04-07] MEDS: Lisinopril 20 MG Tablet PO (08:28)
[2017-04-07] MEDS: Atorvastatin Calcium 80 MG Tablet PO (08:28)
[2017-04-07] MEDS: Famotidine 20 MG Tablet PO ×2 (08:29→21:17)
[2017-04-07] MEDS: Clopidogrel Bisulfate 75 MG Tablet PO (08:29)
[2017-04-07] MEDS: Citalopram 20 MG Tablet PO (08:29)
[2017-04-07] MEDS: hydroCHLOROthiazide 25 MG Tablet PO (08:29)
[2017-04-07] MEDS: amLODIPine 10 MG Tablet PO (08:29)
[2017-04-07 09:57] LABS: ALB/GLOB Ratio 0.8 RATIO (0.9-2.4); AST(SGOT) 37 U/L (15-37); Alanine Aminotransfer ALT/SGPT 33 U/L (13-56); Albumin, Serum 3.5 g/dL (3.2-5.0); Alkaline Phosphatase 68 U/L (45-117); Anion Gap 8 (5-15); BUN 13 mg/dL (7-18); BUN/Creat Ratio 13.5 RATIO (10-20); Calcium,Total 8.5 mg/dL (8.5-10.1); Chloride 90 mmol/L (98-107); Creatinine, Serum 0.96 mg/dL (0.55-1.02); EST Glomerular Filtration Rate 62 mL/min (>60); Est Glom Filt Rate - Afr Amer 75 mL/min (>60); Estimated Creatinine Clearance 48.97 ml/min; Globulin 4.3 g/dL (2.2-4.2); Glucose 118 mg/dL (74-106); Potassium 3.3 mmol/L (3.5-5.1); Protein, Total 7.8 g/dL (6.4-8.2); Sodium Level 124 mmol/L (136-145)
--- NOTE | 2017-04-07 10:32 | PCM.PN.HOSP ---
Subjective: Patient since last evaluation with decreased sodium on CMP as well as some mild lightheadedness with IV fluids given however there was no treatment and in fact decreased sodium level. Discussed with patient and decision for hold on hydrochlorothiazide, SSRI with further laboratory workup pending for etiology although likely secondary to recent medication alterations. Patient notes neurological exam stable with continue PT, OT therapies. Patient denies fevers, chills, nausea, emesis, abdominal pain, chest pain or dyspnea. Objective: Physical Examination: General: awake, alert, oriented x 3 and cooperative, seated upright, NAD. Skin: normal color, turgor, no icterus, cyanosis. HEENT: AT/NC, EOMI, PERRLA, MMM. Lungs: CTA bilaterally, moderate effort, mild decrease BL bases, no rales, ronchi or wheezing. Heart: Regular rate and rhythm; no gallop, rub audible. Abdomen: soft, NTTP, ND, normal BS. Extremities: no cyanosis, clubbing, or edema. Neurological: patient awake, alert, oriented x 3; cognitive function intact; pupils equally reactive to light and accomodation; cranial nerves II-XII grossly normal, moving all 4 extremities, ongoing LLE 4/5 strength, L sided paresthesias present. Psychiatric: affect appears normal, no acute evidence of depressive or anxiety feelings. Vitals/I&O's: Vital Signs Temp Pulse Resp BP Pulse Ox 97.7 F L 76 16 140/85 H 98 04/07/17 08:17 04/07/17 08:17 04/07/17 08:17 04/07/17 08:17 04/07/17 08:17 Oxygen Delivery Method Room Air Weight: 142 lb 3.876 oz Body Mass Index (BMI) 25.2 Finger Stick Blood Glucose 90 Intake and Output for Last 24 Hours 04/05/17 04/06/17 04/07/17 23:59 23:59 23:59 Intake Total 360 / 360 240 / 240 Output Total 400 / 400 Balance 360 / 360 -160 / -160 Laboratory Results 04/07/17 09:20: Sodium 124 L, Potassium 3.3 L, Chloride 90 L, Carbon Dioxide 26.0, Anion Gap 8, BUN 13, Creatinine 0.96, Estim Creat Clear Calc 48.97, Est GFR (MDRD) Af Amer 75, Est GFR (MDRD) Non-Af 62, BUN/Creatinine Ratio 13.5, Glucose 118 H, Calcium 8.5, Total Bilirubin 0.50, AST 37, ALT 33, Alkaline Phosphatase 68, Total Protein 7.8, Albumin 3.5, Globulin 4.3 H, Albumin/Globulin Ratio 0.8 L Current Medications Acetaminophen (Tylenol) 650 mg PO Q6H PRN PRN PRN Reason: Mild Pain (0-3/10)/Headache Last Admin: 04/07/17 06:35 Dose: 650 mg Al Hydroxide/Mg Hydroxide (Mylanta Ii) 30 ml PO Q6H PRN PRN PRN Reason: Gastric burning Albuterol Sulfate (Ventolin Aerosols) 2.5 mg INHALATION Q2H PRN PRN PRN Reason: dyspnea, wheezing' Albuterol/Ipratropium (Duoneb) 3 ml INHALATION Q6HWA.RT [facility] Last Admin: 04/07/17 06:45 Dose: Not Given Amlodipine Besylate (Norvasc) 10 mg PO DAILY [facility] Last Admin: 04/07/17 08:29 Dose: 10 mg Aspirin (Aspirin, Baby) 81 mg PO DAILY@0800 [facility] Last Admin: 04/07/17 08:28 Dose: 81 mg Atorvastatin Calcium (Lipitor) 80 mg PO DAILY [facility] Last Admin: 04/07/17 08:28 Dose: 80 mg Bisacodyl (Dulcolax) 10 mg RECTAL .PRN X 1 PRN PRN Reason: Constipation Budesonide (Pulmicort Aerosol) 0.5 mg INHALATION Q12H.RT [facility] Last Admin: 04/07/17 06:45 Dose: Not Given Clopidogrel Bisulfate (Plavix) 75 mg PO DAILY [facility] Last Admin: 04/07/17 08:29 Dose: 75 mg Diphenhydramine HCl (Benadryl) 25 mg PO QHS PRN PRN PRN Reason: PRURITIS Last Admin: 04/06/17 20:09 Dose: 25 mg Enoxaparin Sodium (Lovenox) 40 mg SC DAILY@0600 [facility] Last Admin: 04/07/17 05:44 Dose: 40 mg Famotidine (Pepcid) 20 mg PO BID [facility] Last Admin: 04/07/17 08:29 Dose: 20 mg Hydrochlorothiazide (Hctz) 25 mg PO DAILY [facility] Last Admin: 04/07/17 08:29 Dose: 25 mg Sodium Chloride () 1,000 mls @ 999 mls/hr IV .Q1H1M ONE Stop: 04/07/17 11:19 Lisinopril (Zestril) 30 mg PO DAILY [facility] Magnesium Hydroxide (Milk Of Magnesia) 30 ml PO .PRN X 1 PRN PRN Reason: Constipation Senna/Docusate Sodium (Senokot-S, Donita-Colace) 2 tablet PO DAILY [facility] Last Admin: 04/07/17 08:29 Dose: Not Given Assessment/Plan The patient is a 66 y/o F w/ PMHx: Chronic COPD, HTN, Anxiety, Tobacco use who transitioned to Acute Rehabilitation on 04/05/17 following admission on 03/3017 with onset L sided weakness and paresthesias upon awakening that day. (1) L sided weakness (LLE) and L sided Paresthesias secondary to Acute infarct involving the right thalamic and posterior limb of the right internal capsule: MRI brain w/ acute infarct involving the right thalamic and posterior limb of the right internal capsule, MRA of the head with incomplete [place] with no MRA evidence of hemodynamically significant stenosis with generally ectatic arteries of the [place], MRA of the neck without evidence for vascular occlusion although technically limited secondary to motion, echo with normal LV systolic function, EF 65%, mildly enlarged LA, mild MV insufficiency, mild TV insufficiency, trivial PV insufficiency, RVSP 41 mmHg. TSH mildly elevated with normal FT4, subclinical with repeat outpatient. Mag normal. FLP obtained and maintained on statin. Neurology consulted with recommendations including ASA 81 mg daily and Plavix 75 mg daily w/ planned dual AP for 1 month then switch to single AP, recommendation 30 day event recorder upon discharge from acute rehabilitation, Goal BP < 130/80 mmHg and Hba1c < 7% with additionally plan for follow up with Neurology as outpatient in 2-3 weeks after rehabilitation discharge. (2) Hypertension: Improved, still mildly increased above goal, given decreased Na level with HCTZ addition, will hold, increased ACEI, continue norvasc, would add cardizem if needed to further achieve goal. (3) Hyponatremia, Worsened, ? Medication related: Unclear specific etiology, likely secondary to recent addition HCTZ, also on SSRI, will hold both, transition to increased ACEI, continued norvasc, recent admission mild subclinical hypothyroidism, will obtain 04/08/17 AM cortisol, will obtain Thi, UCr, UOsm additionally, will obtain orthostatics and administer additional IVF bolus. Dr. Mariano consulted, pending. (4) Tobacco Abuse: Encouraged cessation, inpatient consultation per RT, NR if desired. (4) Anxiety: Given hyponatremia, worsened will hold celexa regimen pending work-up as noted, ativan PRN. (5) Chronic COPD: ATC duonebs, PRN albuterol, HOB, IS parameters. (6) DVT Prophylaxis: SCDs, lovenox. Code Visit Inpatient E&M: 38697 Subs Hosp L3
--- NOTE | 2017-04-07 10:35 | PN_ITS ---
Subjective: Patient since last evaluation with decreased sodium on CMP as well as some mild lightheadedness with IV fluids given however there was no treatment and in fact decreased sodium level. Discussed with patient and decision for hold on hydrochlorothiazide, SSRI with further laboratory workup pending for etiology although likely secondary to recent medication alterations. Patient notes neurological exam stable with continue PT, OT therapies. Patient denies fevers , chills, nausea, emesis, abdominal pain, chest pain or dyspnea. Objective: Physical Examination: General: awake, alert, oriented x 3 and cooperative, seated upright, NAD. Skin: normal color, turgor, no icterus, cyanosis. HEENT: AT/NC, EOMI, PERRLA, MMM. Lungs: CTA bilaterally, moderate effort, mild decrease BL bases, no rales, ronchi or wheezing. Heart: Regular rate and rhythm; no gallop, rub audible. Abdomen: soft, NTTP, ND, normal BS. Extremities: no cyanosis, clubbing, or edema. Neurological: patient awake, alert, oriented x 3; cognitive function intact; pupils equally reactive to light and accomodation; cranial nerves II-XII grossly normal, moving all 4 extremities, ongoing LLE 4/5 strength, L sided paresthesias present. Psychiatric: affect appears normal, no acute evidence of depressive or anxiety feelings. Vitals/I&O's: Vital Signs Temp Pulse Resp BP Pulse Ox 97.7 F L 76 16 140/85 H 98 04/07/17 08:17 04/07/17 08:17 04/07/17 08:17 04/07/17 08:17 04/07/17 08:17 Oxygen Delivery Method Room Air Weight: 142 lb 3.876 oz Body Mass Index (BMI) 25.2 Finger Stick Blood Glucose 90 Intake and Output for Last 24 Hours 04/05/17 04/06/17 04/07/17 23:59 23:59 23:59 Intake Total 360 / 360 240 / 240 Output Total 400 / 400 Balance 360 / 360 -160 / -160 Laboratory Results 04/07/17 09:20: Sodium 124 L, Potassium 3.3 L, Chloride 90 L, Carbon Dioxide 26.0, Anion Gap 8, BUN 13, Creatinine 0.96, Estim Creat Clear Calc 48.97, Est GFR (MDRD) Af Amer 75, Est GFR (MDRD) Non-Af 62, BUN/Creatinine Ratio 13.5, Glucose 118 H, Calcium 8.5, Total Bilirubin 0.50, AST 37, ALT 33, Alkaline Phosphatase 68, Total Protein 7.8, Albumin 3.5, Globulin 4.3 H, Albumin/ Globulin Ratio 0.8 L Current Medications Acetaminophen (Tylenol) 650 mg PO Q6H PRN PRN PRN Reason: Mild Pain (0-3/10)/Headache Last Admin: 04/07/17 06:35 Dose: 650 mg Al Hydroxide/Mg Hydroxide (Mylanta Ii) 30 ml PO Q6H PRN PRN PRN Reason: Gastric burning Albuterol Sulfate (Ventolin Aerosols) 2.5 mg INHALATION Q2H PRN PRN PRN Reason: dyspnea, wheezing' Albuterol/Ipratropium (Duoneb) 3 ml INHALATION Q6HWA.RT [facility] Last Admin: 04/07/17 06:45 Dose: Not Given Amlodipine Besylate (Norvasc) 10 mg PO DAILY [facility] Last Admin: 04/07/17 08:29 Dose: 10 mg Aspirin (Aspirin, Baby) 81 mg PO DAILY@0800 [facility] Last Admin: 04/07/17 08:28 Dose: 81 mg Atorvastatin Calcium (Lipitor) 80 mg PO DAILY [facility] Last Admin: 04/07/17 08:28 Dose: 80 mg Bisacodyl (Dulcolax) 10 mg RECTAL .PRN X 1 PRN PRN Reason: Constipation Budesonide (Pulmicort Aerosol) 0.5 mg INHALATION Q12H.RT [facility] Last Admin: 04/07/17 06:45 Dose: Not Given Clopidogrel Bisulfate (Plavix) 75 mg PO DAILY [facility] Last Admin: 04/07/17 08:29 Dose: 75 mg Diphenhydramine HCl (Benadryl) 25 mg PO QHS PRN PRN PRN Reason: PRURITIS Last Admin: 04/06/17 20:09 Dose: 25 mg Enoxaparin Sodium (Lovenox) 40 mg SC DAILY@0600 [facility] Last Admin: 04/07/17 05:44 Dose: 40 mg Famotidine (Pepcid) 20 mg PO BID [facility] Last Admin: 04/07/17 08:29 Dose: 20 mg Hydrochlorothiazide (Hctz) 25 mg PO DAILY [facility] Last Admin: 04/07/17 08:29 Dose: 25 mg Sodium Chloride () 1,000 mls @ 999 mls/hr IV .Q1H1M ONE Stop: 04/07/17 11:19 Lisinopril (Zestril) 30 mg PO DAILY [facility] Magnesium Hydroxide (Milk Of Magnesia) 30 ml PO .PRN X 1 PRN PRN Reason: Constipation Senna/Docusate Sodium (Senokot-S, Donita-Colace) 2 tablet PO DAILY [facility] Last Admin: 04/07/17 08:29 Dose: Not Given Assessment/Plan The patient is a 66 y/o F w/ PMHx: Chronic COPD, HTN, Anxiety, Tobacco use who transitioned to Acute Rehabilitation on 04/05/17 following admission on 03/3017 with onset L sided weakness and paresthesias upon awakening that day. (1) L sided weakness (LLE) and L sided Paresthesias secondary to Acute infarct involving the right thalamic and posterior limb of the right internal capsule: MRI brain w/ acute infarct involving the right thalamic and posterior limb of the right internal capsule, MRA of the head with incomplete [place] with no MRA evidence of hemodynamically significant stenosis with generally ectatic arteries of the [place], MRA of the neck without evidence for vascular occlusion although technically limited secondary to motion, echo with normal LV systolic function, EF 65%, mildly enlarged LA, mild MV insufficiency, mild TV insufficiency, trivial PV insufficiency, RVSP 41 mmHg. TSH mildly elevated with normal FT4, subclinical with repeat outpatient. Mag normal. FLP obtained and maintained on statin. Neurology consulted with recommendations including ASA 81 mg daily and Plavix 75 mg daily w/ planned dual AP for 1 month then switch to single AP, recommendation 30 day event recorder upon discharge from acute rehabilitation, Goal BP < 130/80 mmHg and Hba1c < 7% with additionally plan for follow up with Neurology as outpatient in 2-3 weeks after rehabilitation discharge. (2) Hypertension: Improved, still mildly increased above goal, given decreased Na level with HCTZ addition, will hold, increased ACEI, continue norvasc, would add cardizem if needed to further achieve goal. (3) Hyponatremia, Worsened, ? Medication related: Unclear specific etiology, likely secondary to recent addition HCTZ, also on SSRI, will hold both, transition to increased ACEI, continued norvasc, recent admission mild subclinical hypothyroidism, will obtain 04/08/17 AM cortisol, will obtain Thi, UCr , UOsm additionally, will obtain orthostatics and administer additional IVF bolus. Dr. Mariano consulted, pending. (4) Tobacco Abuse: Encouraged cessation, inpatient consultation per RT, NR if desired. (4) Anxiety: Given hyponatremia, worsened will hold celexa regimen pending work- up as noted, ativan PRN. (5) Chronic COPD: ATC duonebs, PRN albuterol, HOB, IS parameters. (6) DVT Prophylaxis: SCDs, lovenox. Code Visit Inpatient E&M: 50351 Subs Hosp L3
--- NOTE | 2017-04-07 10:35 | PCM.CONS.R ---
Consultation - Renal 04/07/17 PCP/ Referring MD: Requesting physician: Barbara Avelar Primary care physician: Alix Bonner DO Reason for Consultation:: hyponatremia - History of Present Illness History of Present Illness: The patient is a 66 year old female, who was admitted to the rehab unit on 04/05 for Right Thalamic/IC acute stroke found on MRI. She has a history of HTN, COPD, Anxiety, panic attack. She woke up on 04/03/17, with left sided numbness and weakness, could not walk due to weakness, slid down the bed. Has no prior history of heart attack or stroke or irregular heartbeat. She does have a history of smoking quit 10 years ago but sneaks a cigarette once in a while. Patient was not a TPA candidate. Continues to have left-sided weakness. Denied any change in vision, occultly with swallowing. She does complain of a headache. Denied any nausea or vomiting. Denies any frequent falls. I was asked to see her on consult for hyponatremia. She has a history of low sodium of 133 in the past. Sodium was 128 on admission April 06 down to 124 and April 07. She was started on hydrochlorothiazide recently for uncontrolled hypertension. She has been on Celexa for anxiety panic attacks for many years. She complains of thirst, lightheadedness, dizziness. Denied any syncope. Denied chest pain. She does have a nonproductive cough with wheezing. Denies any fever chills. Hospitalist has already ordered urine indices along with cortisol stimulation test. Results are pending. - Allergies Allergies: Allergies No Known Allergies Allergy (Verified 04/03/17 05:56) - Current Medications Current Medications: Current Medications Acetaminophen (Tylenol) 650 mg PO Q6H PRN PRN PRN Reason: Mild Pain (0-3/10)/Headache Last Admin: 04/07/17 06:35 Dose: 650 mg Al Hydroxide/Mg Hydroxide (Mylanta Ii) 30 ml PO Q6H PRN PRN PRN Reason: Gastric burning Albuterol Sulfate (Ventolin Aerosols) 2.5 mg INHALATION Q2H PRN PRN PRN Reason: dyspnea, wheezing' Albuterol/Ipratropium (Duoneb) 3 ml INHALATION Q6HWA.RT [facility] Last Admin: 04/07/17 06:45 Dose: Not Given Amlodipine Besylate (Norvasc) 10 mg PO DAILY [facility] Last Admin: 04/07/17 08:29 Dose: 10 mg Aspirin (Aspirin, Baby) 81 mg PO DAILY@0800 [facility] Last Admin: 04/07/17 08:28 Dose: 81 mg Atorvastatin Calcium (Lipitor) 80 mg PO DAILY [facility] Last Admin: 04/07/17 08:28 Dose: 80 mg Bisacodyl (Dulcolax) 10 mg RECTAL .PRN X 1 PRN PRN Reason: Constipation Budesonide (Pulmicort Aerosol) 0.5 mg INHALATION Q12H.RT [facility] Last Admin: 04/07/17 06:45 Dose: Not Given Clopidogrel Bisulfate (Plavix) 75 mg PO DAILY [facility] Last Admin: 04/07/17 08:29 Dose: 75 mg Diphenhydramine HCl (Benadryl) 25 mg PO QHS PRN PRN PRN Reason: PRURITIS Last Admin: 04/06/17 20:09 Dose: 25 mg Enoxaparin Sodium (Lovenox) 40 mg SC DAILY@0600 [facility] Last Admin: 04/07/17 05:44 Dose: 40 mg Famotidine (Pepcid) 20 mg PO BID [facility] Last Admin: 04/07/17 08:29 Dose: 20 mg Sodium Chloride () 1,000 mls @ 999 mls/hr IV .Q1H1M ONE Stop: 04/07/17 11:19 Lisinopril (Zestril) 40 mg PO DAILY [facility] Magnesium Hydroxide (Milk Of Magnesia) 30 ml PO .PRN X 1 PRN PRN Reason: Constipation Senna/Docusate Sodium (Senokot-S, Donita-Colace) 2 tablet PO DAILY [facility] Last Admin: 04/07/17 08:29 Dose: Not Given - Past Medical History Past Medical History (Chronic Problems): Chronic Problems COPD (chronic obstructive pulmonary disease) (Chronic) HTN (hypertension) (Chronic) Tobacco use (Chronic) - Past Surgical History Surgical History: appendectomy, cataract, - - BLTL, Carpal Tunnel - Social History Smoking Status: Heavy Smoker (>10/day) Alcohol: Occasional Drugs: None - Family History Maternal History Items: No pertinent history Paternal History Items: Cancer Review of Systems Constitutional: Reports: Weakness - Left-sided. Denies: Anorexia, Chills, Fever, Fatigue Eyes: Denies: Blurred vision, Vision Change HEENT: Reports: Head Aches Cardiovascular: Denies: Chest Pain, Edema Respiratory: Reports: Cough, Wheezing. Denies: Shortness of Breath Gastrointestinal: Denies: Abdominal Pain, Nausea, Vomiting Genitourinary: Denies: Dysuria Musculoskeletal: Denies: Arm Pain, Back Pain Skin: Denies: Rash Neurological: Reports: - - Left-sided weakness. Denies: Difficulty swallowing, Tremor, Seizures Psychiatric: Reports: Anxiety. Denies: Depression Hematologic/ Lymphatic: Denies: Anemia, Easy Bruising - Physical Exam General: Alert, Oriented x3, Cooperative, No apparent distress HEENT: PERRLA, EOMI Oral: Dry Mucosa Neck: Supple Lungs: Diminished, Wheezes - Anterior chest wall Cardiovascular: Regular rate Abdomen: Bowel Sounds Present, Soft, Non Tender, Non-Distended Extremities: No edema Skin: No rashes Musculoskeletal: No Muscle Wasting Neurological: Cranial nerves II-XII grossly intact, - - Mild motor strength weakness left upper and lower extremity Psych/Mental Status: Normal Affect, Alert and oriented to time, place, person, mood and affect Vital Signs Temp Pulse Resp BP Pulse Ox 97.7 F L 76 16 140/85 H 98 04/07/17 08:17 04/07/17 08:17 04/07/17 08:17 04/07/17 08:17 04/07/17 08:17 Oxygen Delivery Method Room Air Weight: 64.52 kg Body Mass Index (BMI) 25.2 Finger Stick Blood Glucose 90 Intake and Output for Last 24 Hours 04/05/17 04/06/17 04/07/17 23:59 23:59 23:59 Intake Total 360 / 360 240 / 240 Output Total 400 / 400 Balance 360 / 360 -160 / -160 Laboratory Tests Past 24 Hrs 04/07/17 09:20 Sodium 124 L Potassium 3.3 L Chloride 90 L Carbon Dioxide 26.0 Anion Gap 8 BUN 13 Creatinine 0.96 Estim Creat Clear Calc 48.97 Est GFR (MDRD) Af Amer 75 Est GFR (MDRD) Non-Af 62 BUN/Creatinine Ratio 13.5 Glucose 118 H Calcium 8.5 Total Bilirubin 0.50 AST 37 ALT 33 Alkaline Phosphatase 68 Total Protein 7.8 Albumin 3.5 Globulin 4.3 H Albumin/Globulin Ratio 0.8 L Assessment/Plan 1. Hyponatremia evaluate for SIADH from [employer] event. Await urine indices with urine sodium and urine osmolarity. Cortisol level pending to rule out adrenal insufficiency although I doubt that this is the case. Likely due to hydrochlorothiazide. Would recommend to hold hydrochlorothiazide. Would also consider discontinuing her SSRI for now. 2. Hypertension with mildly elevated blood pressures consider increasing lisinopril. Renal function and potassium level stable. 3. 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 4. Lightheadedness, dizziness check orthostatics Thank you. Discussed with hospitalist.
[2017-04-07 12:37] VITALS: PULSE 96; RESP 19; O2SAT 97
[2017-04-07] MEDS: Ipratropium/Albuterol Sulfate 3 ML AMPUL.NEB INHALATION ×2 (12:37→18:36)
[2017-04-07 13:58] VITALS: BMI 25.2
[2017-04-07] MEDS: 0.9% Normal Saline 1,000 ML 999 ML IV (14:04)
[2017-04-07 14:37] LABS: Urine Sodium 75 mmol/L (Not Establ.)
[2017-04-07 14:41] LABS: Creatinine, Urine (random) < 13.00 mg/dL (NO RANGE EST.)
[2017-04-07 16:22] LABS: Osmolality, Urine 216 mOsm/KG
[2017-04-07 18:36] VITALS: PULSE 80; RESP 18
[2017-04-07] MEDS: Budesonide Respules 0.5 MG/2 ML AMPUL.NEB. INHALATION (18:36)
[2017-04-07] MEDS: DiphenhydrAMINE 25 MG Capsule PO (21:17)
[2017-04-07 21:20] VITALS: BP 150/96; PULSE 75; RESP 18; TEMP 36.4; O2SAT 96
[2017-04-07 21:29] VITALS: BMI 25.2
[2017-04-08] MEDS: Enoxaparin 40 MG/0.4 ML Syringe SC (05:06)
[2017-04-08 06:30] VITALS: PULSE 87; RESP 18; O2SAT 98
[2017-04-08] MEDS: Ipratropium/Albuterol Sulfate 3 ML AMPUL.NEB INHALATION ×3 (06:30→18:50)
[2017-04-08 08:45] VITALS: BP 151/90; PULSE 84; RESP 17; TEMP 36.6; O2SAT 96
[2017-04-08] MEDS: Atorvastatin Calcium 80 MG Tablet PO (08:47)
[2017-04-08] MEDS: Clopidogrel Bisulfate 75 MG Tablet PO (08:47)
[2017-04-08] MEDS: amLODIPine 10 MG Tablet PO (08:47)
[2017-04-08] MEDS: Famotidine 20 MG Tablet PO ×2 (08:47→21:28)
[2017-04-08] MEDS: Aspirin 81 MG TAB.CHEW PO (08:47)
[2017-04-08] MEDS: Lisinopril 40 MG Tablet PO (08:49)
[2017-04-08] MEDS: 0.9% NaCl Peripheral Flush Adult/Peds IV ×2 (08:53→20:09)
--- NOTE | 2017-04-08 11:00 | NURSING ---
dr guzmán aware of labs.
[2017-04-08 11:10] LABS: Anion Gap 12 (5-15); BUN 17 mg/dL (7-18); BUN/Creat Ratio 17.8 RATIO (10-20); Calcium,Total 8.5 mg/dL (8.5-10.1); Chloride 89 mmol/L (98-107); Creatinine, Serum 0.96 mg/dL (0.55-1.02); EST Glomerular Filtration Rate 62 mL/min (>60); Est Glom Filt Rate - Afr Amer 76 mL/min (>60); Estimated Creatinine Clearance 48.97 ml/min; Glucose 127 mg/dL (74-106); Potassium 2.8 mmol/L (3.5-5.1); Sodium Level 125 mmol/L (136-145)
[2017-04-08 12:25] VITALS: BMI 25.2
[2017-04-08 12:43] VITALS: PULSE 82; RESP 18; O2SAT 99
[2017-04-08] MEDS: Acetaminophen 325 MG Tablet 650 MG PO ×2 (13:02→20:08)
[2017-04-08 18:50] VITALS: PULSE 84; RESP 16
[2017-04-08 20:33] VITALS: BP 111/56; PULSE 85; RESP 18; TEMP 36.3; O2SAT 96
[2017-04-08 21:24] VITALS: BMI 25.2
[2017-04-08] MEDS: DiphenhydrAMINE 25 MG Capsule PO (21:28)
[2017-04-09] MEDS: Enoxaparin 40 MG/0.4 ML Syringe SC (05:14)
[2017-04-09 06:27] LABS: Anion Gap 8 (5-15); BUN 24 mg/dL (7-18); BUN/Creat Ratio 24.2 RATIO (10-20); Calcium,Total 8.5 mg/dL (8.5-10.1); Chloride 96 mmol/L (98-107); Creatinine, Serum 0.99 mg/dL (0.55-1.02); EST Glomerular Filtration Rate 60 mL/min (>60); Est Glom Filt Rate - Afr Amer 72 mL/min (>60); Estimated Creatinine Clearance 47.49 ml/min; Glucose 89 mg/dL (74-106); Potassium 3.5 mmol/L (3.5-5.1); Sodium Level 128 mmol/L (136-145)
[2017-04-09 07:21] VITALS: BP 146/71; PULSE 83; RESP 16; TEMP 36.8; O2SAT 95
[2017-04-09] MEDS: Atorvastatin Calcium 80 MG Tablet PO (09:08)
[2017-04-09] MEDS: Clopidogrel Bisulfate 75 MG Tablet PO (09:08)
[2017-04-09] MEDS: amLODIPine 10 MG Tablet PO (09:08)
[2017-04-09] MEDS: Aspirin 81 MG TAB.CHEW PO (09:08)
[2017-04-09] MEDS: Famotidine 20 MG Tablet PO ×2 (09:08→21:04)
[2017-04-09] MEDS: Lisinopril 40 MG Tablet PO (09:08)
[2017-04-09 14:09] VITALS: BMI 25.2
--- NOTE | 2017-04-09 14:59 | PCM.PN.NEU ---
Subjective: Patient seen and examined. No acute events overnight. Tolerating therapy. Denies any shortness of breath or chest pains. Tolerating Regular diet No issues with GI. Continues to be Hyponatremic, Na was 128 on AM labs. Hospitalist and Renal following. - Physical Exam General: Alert, Oriented x3, Cooperative HEENT: Atraumatic, PERRLA, EOMI, Normocephalic Neck: Supple, No JVD, Negative Carotid Bruits Lungs: Clear to auscultation, Normal air movement Cardiovascular: Regular rate, No murmurs Abdomen: Bowel Sounds Present, Soft, Non Tender Extremities: No edema, Capillary Refill Less than 3 Seconds Skin: No rashes, No breakdown Musculoskeletal: No Tenderness to Palpation of Joints or Extremities Neurological: Cranial nerves II-XII grossly intact Psych/Mental Status: Normal Affect, Appropriate Vital Signs Temp Pulse Resp BP Pulse Ox 98.3 F 83 16 146/71 H 95 04/09/17 07:21 04/09/17 07:21 04/09/17 07:21 04/09/17 07:21 04/09/17 07:21 Oxygen Delivery Method Room Air Weight: 64.52 kg Body Mass Index (BMI) 25.2 Finger Stick Blood Glucose 90 Intake and Output for Last 24 Hours 04/07/17 04/08/17 04/09/17 23:59 23:59 23:59 Intake Total 80 / 80 420 / 420 240 / 240 Output Total 150 / 150 Balance -70 / -70 420 / 420 240 / 240 Laboratory Tests Past 24 Hrs 04/08/17 04/09/17 08:30 05:25 Sodium 128 L Potassium 3.5 Chloride 96 L Carbon Dioxide 24.0 Anion Gap 8 BUN 24 H Creatinine 0.99 Estim Creat Clear Calc 47.49 Est GFR (MDRD) Af Amer 72 Est GFR (MDRD) Non-Af 60 BUN/Creatinine Ratio 24.2 H Glucose 89 Calcium 8.5 Cortisol 29.10 H Active Medications Acetaminophen (Tylenol) 650 mg PO Q6H PRN PRN PRN Reason: Mild Pain (0-3/10)/Headache Last Admin: 04/08/17 20:08 Dose: 650 mg Al Hydroxide/Mg Hydroxide (Mylanta Ii) 30 ml PO Q6H PRN PRN PRN Reason: Gastric burning Albuterol Sulfate (Ventolin Aerosols) 2.5 mg INHALATION Q2H PRN PRN PRN Reason: dyspnea, wheezing' Albuterol/Ipratropium (Duoneb) 3 ml INHALATION Q6HWA.RT [facility] Last Admin: 04/09/17 13:53 Dose: Not Given Amlodipine Besylate (Norvasc) 10 mg PO DAILY [facility] Last Admin: 04/09/17 09:08 Dose: 10 mg Aspirin (Aspirin, Baby) 81 mg PO DAILY@0800 [facility] Last Admin: 04/09/17 09:08 Dose: 81 mg Atorvastatin Calcium (Lipitor) 80 mg PO DAILY [facility] Last Admin: 04/09/17 09:08 Dose: 80 mg Bisacodyl (Dulcolax) 10 mg RECTAL .PRN X 1 PRN PRN Reason: Constipation Budesonide (Pulmicort Aerosol) 0.5 mg INHALATION Q12H.RT [facility] Last Admin: 04/09/17 06:57 Dose: Not Given Clopidogrel Bisulfate (Plavix) 75 mg PO DAILY [facility] Last Admin: 04/09/17 09:08 Dose: 75 mg Diphenhydramine HCl (Benadryl) 25 mg PO QHS PRN PRN PRN Reason: PRURITIS Last Admin: 04/08/17 21:28 Dose: 25 mg Enoxaparin Sodium (Lovenox) 40 mg SC DAILY@0600 [facility] Last Admin: 04/09/17 05:14 Dose: 40 mg Famotidine (Pepcid) 20 mg PO BID [facility] Last Admin: 04/09/17 09:08 Dose: 20 mg Lisinopril (Zestril) 40 mg PO DAILY [facility] Last Admin: 04/09/17 09:08 Dose: 40 mg Magnesium Hydroxide (Milk Of Magnesia) 30 ml PO .PRN X 1 PRN PRN Reason: Constipation Nutritional Formula (Lactose Free) (Ensure Enlive) 120 ml PO 4X/DAY [facility] Last Admin: 04/09/17 14:09 Dose: 120 ml Senna/Docusate Sodium (Senokot-S, Donita-Colace) 2 tablet PO DAILY [facility] Last Admin: 04/09/17 09:08 Dose: Not Given Sodium Chloride () 5 - 30 ml IV UD PRN PRN Reason: SALINE FLUSH Last Admin: 04/08/17 20:09 Dose: 10 ml Assessment/Plan Debility s/p tight thalamic/IC stroke. goal of rehab is rastafarian of functional independence. Plan: - Physical therapy for gait and balance - Occupational Therapy for ADLs - Speech therapy - As needed analgesics - Bowel protocol - Stroke prevention -> ASA 81 mg daily and Plavix 75 mg daily. Dual AP for 1 month then switch to single AP and Lipitor 80mg - DVT Prophylaxis: SCDs, lovenox. - TTE-EF 65%, mildly dilated LA, no PFO - -MRI brain and MRA head/neck MRA of the head with incomplete [place] with no MRA evidence of hemodynamically significant stenosis with generally ectatic arteries of the [place], MRA of the neck without evidence for vascular occlusion - Will obtain a 30 day event monitor on discharge - Goal of BP <130/80, and A1C < 7% - Hypertension: BP above goal 130/80 still, increased HCTZ/Lisinopril the day prior and added norvasc, will monitor today and if pressures do not improve will increase ACEI further. - Tobacco Abuse: Encouraged cessation, inpatient consultation per RT, NR if desired. - Anxiety: Continue home Celexa regimen, Ativan PRN. - Chronic COPD: ATC duonebs, PRN albuterol, HOB, IS parameters. - Hyponatremia -> Na 127, hospitalist ordered a Liter of NS => Renal was consulted by the hospitalist pending their recs, the patients Cortisol was 29.10, UA Osmolality 216, UA Random Na 75 and Urine creatine <13
--- NOTE | 2017-04-09 15:03 | PN.NEURO_ITS ---
Subjective: Patient seen and examined. No acute events overnight. Tolerating therapy. Denies any shortness of breath or chest pains. Tolerating Regular diet No issues with GI. Continues to be Hyponatremic, Na was 128 on AM labs. Hospitalist and Renal following. - Physical Exam General: Alert, Oriented x3, Cooperative HEENT: Atraumatic, PERRLA, EOMI, Normocephalic Neck: Supple, No JVD, Negative Carotid Bruits Lungs: Clear to auscultation, Normal air movement Cardiovascular: Regular rate, No murmurs Abdomen: Bowel Sounds Present, Soft, Non Tender Extremities: No edema, Capillary Refill Less than 3 Seconds Skin: No rashes, No breakdown Musculoskeletal: No Tenderness to Palpation of Joints or Extremities Neurological: Cranial nerves II-XII grossly intact Psych/Mental Status: Normal Affect, Appropriate Vital Signs Temp Pulse Resp BP Pulse Ox 98.3 F 83 16 146/71 H 95 04/09/17 07:21 04/09/17 07:21 04/09/17 07:21 04/09/17 07:21 04/09/17 07:21 Oxygen Delivery Method Room Air Weight: 64.52 kg Body Mass Index (BMI) 25.2 Finger Stick Blood Glucose 90 Intake and Output for Last 24 Hours 04/07/17 04/08/17 04/09/17 23:59 23:59 23:59 Intake Total 80 / 80 420 / 420 240 / 240 Output Total 150 / 150 Balance -70 / -70 420 / 420 240 / 240 Laboratory Tests Past 24 Hrs 04/08/17 04/09/17 08:30 05:25 Sodium 128 L Potassium 3.5 Chloride 96 L Carbon Dioxide 24.0 Anion Gap 8 BUN 24 H Creatinine 0.99 Estim Creat Clear Calc 47.49 Est GFR (MDRD) Af Amer 72 Est GFR (MDRD) Non-Af 60 BUN/Creatinine Ratio 24.2 H Glucose 89 Calcium 8.5 Cortisol 29.10 H Active Medications Acetaminophen (Tylenol) 650 mg PO Q6H PRN PRN PRN Reason: Mild Pain (0-3/10)/Headache Last Admin: 04/08/17 20:08 Dose: 650 mg Al Hydroxide/Mg Hydroxide (Mylanta Ii) 30 ml PO Q6H PRN PRN PRN Reason: Gastric burning Albuterol Sulfate (Ventolin Aerosols) 2.5 mg INHALATION Q2H PRN PRN PRN Reason: dyspnea, wheezing' Albuterol/Ipratropium (Duoneb) 3 ml INHALATION Q6HWA.RT [facility] Last Admin: 04/09/17 13:53 Dose: Not Given Amlodipine Besylate (Norvasc) 10 mg PO DAILY [facility] Last Admin: 04/09/17 09:08 Dose: 10 mg Aspirin (Aspirin, Baby) 81 mg PO DAILY@0800 [facility] Last Admin: 04/09/17 09:08 Dose: 81 mg Atorvastatin Calcium (Lipitor) 80 mg PO DAILY [facility] Last Admin: 04/09/17 09:08 Dose: 80 mg Bisacodyl (Dulcolax) 10 mg RECTAL .PRN X 1 PRN PRN Reason: Constipation Budesonide (Pulmicort Aerosol) 0.5 mg INHALATION Q12H.RT [facility] Last Admin: 04/09/17 06:57 Dose: Not Given Clopidogrel Bisulfate (Plavix) 75 mg PO DAILY [facility] Last Admin: 04/09/17 09:08 Dose: 75 mg Diphenhydramine HCl (Benadryl) 25 mg PO QHS PRN PRN PRN Reason: PRURITIS Last Admin: 04/08/17 21:28 Dose: 25 mg Enoxaparin Sodium (Lovenox) 40 mg SC DAILY@0600 [facility] Last Admin: 04/09/17 05:14 Dose: 40 mg Famotidine (Pepcid) 20 mg PO BID [facility] Last Admin: 04/09/17 09:08 Dose: 20 mg Lisinopril (Zestril) 40 mg PO DAILY [facility] Last Admin: 04/09/17 09:08 Dose: 40 mg Magnesium Hydroxide (Milk Of Magnesia) 30 ml PO .PRN X 1 PRN PRN Reason: Constipation Nutritional Formula (Lactose Free) (Ensure Enlive) 120 ml PO 4X/DAY [facility] Last Admin: 04/09/17 14:09 Dose: 120 ml Senna/Docusate Sodium (Senokot-S, Donita-Colace) 2 tablet PO DAILY [facility] Last Admin: 04/09/17 09:08 Dose: Not Given Sodium Chloride () 5 - 30 ml IV UD PRN PRN Reason: SALINE FLUSH Last Admin: 04/08/17 20:09 Dose: 10 ml Assessment/Plan Debility s/p tight thalamic/IC stroke. goal of rehab is caodaism of functional independence. Plan: - Physical therapy for gait and balance - Occupational Therapy for ADLs - Speech therapy - As needed analgesics - Bowel protocol - Stroke prevention -> ASA 81 mg daily and Plavix 75 mg daily. Dual AP for 1 month then switch to single AP and Lipitor 80mg - DVT Prophylaxis: SCDs, lovenox. - TTE-EF 65%, mildly dilated LA, no PFO - -MRI brain and MRA head/neck MRA of the head with incomplete [place] with no MRA evidence of hemodynamically significant stenosis with generally ectatic arteries of the [place], MRA of the neck without evidence for vascular occlusion - Will obtain a 30 day event monitor on discharge - Goal of BP <130/80, and A1C < 7% - Hypertension: BP above goal 130/80 still, increased HCTZ/Lisinopril the day prior and added norvasc, will monitor today and if pressures do not improve will increase ACEI further. - Tobacco Abuse: Encouraged cessation, inpatient consultation per RT, NR if desired. - Anxiety: Continue home Celexa regimen, Ativan PRN. - Chronic COPD: ATC duonebs, PRN albuterol, HOB, IS parameters. - Hyponatremia -> Na 127, hospitalist ordered a Liter of NS => Renal was consulted by the hospitalist pending their recs, the patients Cortisol was 29.10 , UA Osmolality 216, UA Random Na 75 and Urine creatine <13
[2017-04-09 16:46] VITALS: PULSE 88; RESP 16; O2SAT 95
[2017-04-09] MEDS: Ipratropium/Albuterol Sulfate 3 ML AMPUL.NEB INHALATION (16:46)
[2017-04-09] MEDS: Budesonide Respules 0.5 MG/2 ML AMPUL.NEB. INHALATION (16:46)
[2017-04-09] MEDS: Acetaminophen 325 MG Tablet 650 MG PO (17:10)
[2017-04-09] MEDS: 0.9% NaCl Peripheral Flush Adult/Peds IV ×2 (17:10→21:04)
[2017-04-09 20:10] VITALS: BP 138/93; PULSE 75; RESP 18; TEMP 36.5; O2SAT 97
[2017-04-09 20:11] VITALS: BMI 25.2
[2017-04-09] MEDS: DiphenhydrAMINE 25 MG Capsule PO (21:04)
[2017-04-10] MEDS: Enoxaparin 40 MG/0.4 ML Syringe SC (05:18)
[2017-04-10 06:19] LABS: Anion Gap 8 (5-15); BUN 20 mg/dL (7-18); BUN/Creat Ratio 25.5 RATIO (10-20); Calcium,Total 8.2 mg/dL (8.5-10.1); Chloride 96 mmol/L (98-107); Creatinine, Serum 0.78 mg/dL (0.55-1.02); EST Glomerular Filtration Rate 78 mL/min (>60); Est Glom Filt Rate - Afr Amer 95 mL/min (>60); Estimated Creatinine Clearance 60.27 ml/min; Glucose 89 mg/dL (74-106); Potassium 3.4 mmol/L (3.5-5.1); Sodium Level 125 mmol/L (136-145)
[2017-04-10 06:25] VITALS: PULSE 89; RESP 20; O2SAT 96
[2017-04-10] MEDS: Ipratropium/Albuterol Sulfate 3 ML AMPUL.NEB INHALATION ×2 (06:25→18:46)
[2017-04-10 08:49] VITALS: BP 146/72; PULSE 80; RESP 17; TEMP 36.6; O2SAT 97
[2017-04-10] MEDS: Lisinopril 40 MG Tablet PO (10:47)
[2017-04-10] MEDS: Aspirin 81 MG TAB.CHEW PO (10:47)
[2017-04-10] MEDS: Famotidine 20 MG Tablet PO ×2 (10:47→20:33)
[2017-04-10] MEDS: amLODIPine 10 MG Tablet PO (10:47)
[2017-04-10] MEDS: Atorvastatin Calcium 80 MG Tablet PO (10:47)
[2017-04-10] MEDS: Clopidogrel Bisulfate 75 MG Tablet PO (10:48)
[2017-04-10 11:42] LABS: Phosphorus 2.9 mg/dL (2.5-4.9)
--- NOTE | 2017-04-10 12:02 | PCM.PN.REN ---
Subjective: denies nausea, headache. Sodium 125. Cortisol level wnl. Left hemiplegia improving with therapy. - Physical Exam General: Alert, Oriented x3, Cooperative, No apparent distress Lungs: Clear to auscultation Cardiovascular: Regular rate Extremities: No edema Vital Signs Temp Pulse Resp BP Pulse Ox 97.8 F 80 17 146/72 H 97 04/10/17 08:49 04/10/17 08:49 04/10/17 08:49 04/10/17 08:49 04/10/17 08:49 Oxygen Delivery Method Room Air Weight: 64.52 kg Body Mass Index (BMI) 25.2 Finger Stick Blood Glucose 90 Intake and Output for Last 24 Hours 04/08/17 04/09/17 04/10/17 23:59 23:59 23:59 Intake Total 420 / 420 240 / 240 240 / 240 Balance 420 / 420 240 / 240 240 / 240 Laboratory Tests Past 24 Hrs 04/10/17 04/10/17 05:25 05:25 Sodium 125 L Potassium 3.4 L Chloride 96 L Carbon Dioxide 21.0 Anion Gap 8 BUN 20 H Creatinine 0.78 Estim Creat Clear Calc 60.27 Est GFR (MDRD) Af Amer 95 Est GFR (MDRD) Non-Af 78 BUN/Creatinine Ratio 25.5 H Glucose 89 Calcium 8.2 L Phosphorus 2.9 Assessment/Plan 1. Hyponatremia evaluate for SIADH from [employer] event. Repeat urine sodium while off HCTZ. Last urine sodium elevated at 75 while on HCTZ. Fluid restriction 1200cc/day. May need tolvaptan if sodium remains low. Currently asymptomatic. 2. Hypertension stable 3. 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
[2017-04-10 12:17] VITALS: BMI 25.2
--- NOTE | 2017-04-10 13:05 | PN.NEURO_ITS ---
Subjective: Patient seen and examined. No acute events overnight. Tolerating therapy. On fluid restriction 1200cc/day for Hyponatremia, Renal following. - Physical Exam General: Alert, Oriented x3, Cooperative HEENT: Atraumatic, PERRLA, EOMI, Normocephalic Neck: Supple, No JVD, Negative Carotid Bruits Lungs: Clear to auscultation, Normal air movement Cardiovascular: Regular rate, No murmurs Abdomen: Bowel Sounds Present, Soft, Non Tender Extremities: No edema, Capillary Refill Less than 3 Seconds Skin: No rashes, No breakdown Musculoskeletal: No Tenderness to Palpation of Joints or Extremities Neurological: Cranial nerves II-XII grossly intact Psych/Mental Status: Normal Affect, Appropriate Vital Signs Temp Pulse Resp BP Pulse Ox 97.8 F 80 17 146/72 H 97 04/10/17 08:49 04/10/17 08:49 04/10/17 08:49 04/10/17 08:49 04/10/17 08:49 Oxygen Delivery Method Room Air Weight: 64.52 kg Body Mass Index (BMI) 25.2 Finger Stick Blood Glucose 90 Intake and Output for Last 24 Hours 04/08/17 04/09/17 04/10/17 23:59 23:59 23:59 Intake Total 420 / 420 240 / 240 240 / 240 Balance 420 / 420 240 / 240 240 / 240 Laboratory Tests Past 24 Hrs 04/10/17 04/10/17 05:25 05:25 Sodium 125 L Potassium 3.4 L Chloride 96 L Carbon Dioxide 21.0 Anion Gap 8 BUN 20 H Creatinine 0.78 Estim Creat Clear Calc 60.27 Est GFR (MDRD) Af Amer 95 Est GFR (MDRD) Non-Af 78 BUN/Creatinine Ratio 25.5 H Glucose 89 Calcium 8.2 L Phosphorus 2.9 Active Medications Acetaminophen (Tylenol) 650 mg PO Q6H PRN PRN PRN Reason: Mild Pain (0-3/10)/Headache Last Admin: 04/09/17 17:10 Dose: 650 mg Al Hydroxide/Mg Hydroxide (Mylanta Ii) 30 ml PO Q6H PRN PRN PRN Reason: Gastric burning Albuterol Sulfate (Ventolin Aerosols) 2.5 mg INHALATION Q2H PRN PRN PRN Reason: dyspnea, wheezing' Albuterol/Ipratropium (Duoneb) 3 ml INHALATION Q6HWA.RT [facility] Last Admin: 04/10/17 06:25 Dose: 3 ml Amlodipine Besylate (Norvasc) 10 mg PO DAILY [facility] Last Admin: 04/10/17 10:47 Dose: 10 mg Aspirin (Aspirin, Baby) 81 mg PO DAILY@0800 [facility] Last Admin: 04/10/17 10:47 Dose: 81 mg Atorvastatin Calcium (Lipitor) 80 mg PO DAILY [facility] Last Admin: 04/10/17 10:47 Dose: 80 mg Bisacodyl (Dulcolax) 10 mg RECTAL .PRN X 1 PRN PRN Reason: Constipation Budesonide (Pulmicort Aerosol) 0.5 mg INHALATION Q12H.RT [facility] Clopidogrel Bisulfate (Plavix) 75 mg PO DAILY [facility] Last Admin: 04/10/17 10:48 Dose: 75 mg Diphenhydramine HCl (Benadryl) 25 mg PO QHS PRN PRN PRN Reason: PRURITIS Last Admin: 04/09/17 21:04 Dose: 25 mg Enoxaparin Sodium (Lovenox) 40 mg SC DAILY@0600 [facility] Last Admin: 04/10/17 05:18 Dose: 40 mg Famotidine (Pepcid) 20 mg PO BID [facility] Last Admin: 04/10/17 10:47 Dose: 20 mg Lisinopril (Zestril) 40 mg PO DAILY [facility] Last Admin: 04/10/17 10:47 Dose: 40 mg Magnesium Hydroxide (Milk Of Magnesia) 30 ml PO .PRN X 1 PRN PRN Reason: Constipation Nutritional Formula (Lactose Free) (Ensure Enlive) 120 ml PO 4X/DAY [facility] Last Admin: 04/10/17 10:47 Dose: 120 ml Potassium Chloride (K-Dur) 40 meq PO DAILYCM [facility] Stop: 04/13/17 08:00 Senna/Docusate Sodium (Senokot-S, Donita-Colace) 2 tablet PO DAILY [facility] Last Admin: 04/10/17 10:48 Dose: Not Given Sodium Chloride () 5 - 30 ml IV UD PRN PRN Reason: SALINE FLUSH Last Admin: 04/09/17 21:04 Dose: 10 ml Assessment/Plan Debility s/p tight thalamic/IC stroke. goal of rehab is rastafari of functional independence. Plan: - Physical therapy for gait and balance - Occupational Therapy for ADLs - Speech therapy - As needed analgesics - Bowel protocol - Stroke prevention -> ASA 81 mg daily and Plavix 75 mg daily. Dual AP for 1 month then switch to single AP and Lipitor 80mg - DVT Prophylaxis: SCDs, lovenox. - TTE-EF 65%, mildly dilated LA, no PFO - -MRI brain and MRA head/neck MRA of the head with incomplete [place] with no MRA evidence of hemodynamically significant stenosis with generally ectatic arteries of the [place], MRA of the neck without evidence for vascular occlusion - Will obtain a 30 day event monitor on discharge - Goal of BP <130/80, and A1C < 7% - Hypertension: BP above goal 130/80 still, increased HCTZ/Lisinopril the day prior and added norvasc, will monitor today and if pressures do not improve will increase ACEI further. - Tobacco Abuse: Encouraged cessation, inpatient consultation per RT, NR if desired. - Anxiety: Continue home Celexa regimen, Ativan PRN. - Chronic COPD: ATC duonebs, PRN albuterol, HOB, IS parameters. - Hyponatremia -> Na 127, hospitalist ordered a Liter of NS => Renal was consulted by the hospitalist pending their recs, the patients Cortisol was 29.10 , UA Osmolality 216, UA Random Na 75 and Urine creatine <13 - Hyponatremia => fluid restriction 1200cc/day
--- NOTE | 2017-04-10 14:25 | NURSING ---
IV in Left arm partially out this RN pulled IV, applied pressure dressing, no bleeding noted, pt tolerated well.
[2017-04-10] MEDS: Acetaminophen 325 MG Tablet 650 MG PO (16:01)
[2017-04-10 16:38] LABS: Urine Sodium 43 mmol/L (Not Establ.)
--- NOTE | 2017-04-10 16:48 | CHAPLAIN ---
Type of Pastoral Visit _x__ Initial Visit ___ Follow-up Visit ___ On-call Visit ___ General Patient Visit ___ Spiritual Assessment ___ Family Conference ___ Bereavement ___ Rapid Response ___ Code Blue ___ Other (describe below) Pastoral Care Referral From _x__ Patient ___ Family ___ Nurse ___ Physician ___ Speech And Language Assistant ___ Direct Marketing Intern ___ Other (describe below) Sacrament/Intervention ___ Active listening ___ Anointing ___ Islam ___ Bereavement ___ Communion ___ Yumiko exploration ___ ___ Life review ___ Prayer ___ Reconciliation ___ Sacrament of Sick _x__ Supportive presence ___ Wedding ___ Other (describe below) Pastoral Comments
[2017-04-10 18:46] VITALS: PULSE 73; RESP 18
[2017-04-10] MEDS: Budesonide Respules 0.5 MG/2 ML AMPUL.NEB. INHALATION (18:47)
[2017-04-10 19:36] VITALS: BP 134/67; PULSE 76; RESP 16; TEMP 36.4; O2SAT 96
[2017-04-10] MEDS: DiphenhydrAMINE 25 MG Capsule PO (19:45)
[2017-04-11 05:00] VITALS: BMI 25.2
[2017-04-11] MEDS: Enoxaparin 40 MG/0.4 ML Syringe SC (05:19)
[2017-04-11 06:13] LABS: Anion Gap 8 (5-15); BUN 18 mg/dL (7-18); BUN/Creat Ratio 19.7 RATIO (10-20); Calcium,Total 8.6 mg/dL (8.5-10.1); Chloride 99 mmol/L (98-107); Creatinine, Serum 0.91 mg/dL (0.55-1.02); EST Glomerular Filtration Rate 66 mL/min (>60); Est Glom Filt Rate - Afr Amer 80 mL/min (>60); Estimated Creatinine Clearance 51.66 ml/min; Glucose 88 mg/dL (74-106); Potassium 3.8 mmol/L (3.5-5.1); Sodium Level 129 mmol/L (136-145)
[2017-04-11 07:11] VITALS: PULSE 88; RESP 18
[2017-04-11] MEDS: Budesonide Respules 0.5 MG/2 ML AMPUL.NEB. INHALATION (07:30)
[2017-04-11] MEDS: Ipratropium/Albuterol Sulfate 3 ML AMPUL.NEB INHALATION ×2 (07:30→13:33)
[2017-04-11 07:58] VITALS: BP 139/83; PULSE 87; RESP 16; TEMP 36.6; O2SAT 94
[2017-04-11] MEDS: Aspirin 81 MG TAB.CHEW PO (07:59)
[2017-04-11] MEDS: Atorvastatin Calcium 80 MG Tablet PO (07:59)
[2017-04-11] MEDS: Famotidine 20 MG Tablet PO ×2 (07:59→20:21)
[2017-04-11] MEDS: amLODIPine 10 MG Tablet PO (07:59)
[2017-04-11] MEDS: Clopidogrel Bisulfate 75 MG Tablet PO (08:00)
[2017-04-11] MEDS: Lisinopril 40 MG Tablet PO (08:00)
--- NOTE | 2017-04-11 10:43 | PCM.PN.NEU ---
Subjective: patient seen and examined. No new complaints. Tolerating therapy. She states she is ready to go home. able to ambulate over 3oo feet. and is able to go up at least 5 steps, at stand by assist. - Physical Exam General: Alert, Oriented x3, Cooperative HEENT: Atraumatic, PERRLA, EOMI, Normocephalic Neck: Supple, No JVD, Negative Carotid Bruits Lungs: Clear to auscultation, Normal air movement Cardiovascular: Regular rate, No murmurs Abdomen: Bowel Sounds Present, Soft, Non Tender Extremities: No edema, Capillary Refill Less than 3 Seconds Skin: No rashes, No breakdown Musculoskeletal: No Tenderness to Palpation of Joints or Extremities Neurological: Cranial nerves II-XII grossly intact Psych/Mental Status: Normal Affect, Appropriate Vital Signs Temp Pulse Resp BP Pulse Ox 97.8 F 87 16 139/83 H 94 04/11/17 07:58 04/11/17 07:58 04/11/17 07:58 04/11/17 07:58 04/11/17 07:58 Oxygen Delivery Method Room Air Weight: 63.4 kg Body Mass Index (BMI) 25.2 Finger Stick Blood Glucose 90 Intake and Output for Last 24 Hours 04/09/17 04/10/17 04/11/17 23:59 23:59 23:59 Intake Total 240 / 240 1215 / 1215 140 / 140 Output Total 600 / 600 800 / 800 Balance 240 / 240 615 / 615 -660 / -660 Laboratory Tests Past 24 Hrs 04/10/17 04/10/17 04/11/17 05:25 13:30 05:35 Sodium 129 L Potassium 3.8 Chloride 99 Carbon Dioxide 22.0 Anion Gap 8 BUN 18 Creatinine 0.91 Estim Creat Clear Calc 51.66 Est GFR (MDRD) Af Amer 80 Est GFR (MDRD) Non-Af 66 BUN/Creatinine Ratio 19.7 Glucose 88 Calcium 8.6 Phosphorus 2.9 Ur Random Sodium 43 Active Medications Acetaminophen (Tylenol) 650 mg PO Q6H PRN PRN PRN Reason: Mild Pain (0-3/10)/Headache Last Admin: 04/10/17 16:01 Dose: 650 mg Al Hydroxide/Mg Hydroxide (Mylanta Ii) 30 ml PO Q6H PRN PRN PRN Reason: Gastric burning Albuterol Sulfate (Ventolin Aerosols) 2.5 mg INHALATION Q2H PRN PRN PRN Reason: dyspnea, wheezing' Albuterol/Ipratropium (Duoneb) 3 ml INHALATION Q6HWA.RT [facility] Last Admin: 04/11/17 07:30 Dose: 3 ml Amlodipine Besylate (Norvasc) 10 mg PO DAILY [facility] Last Admin: 04/11/17 07:59 Dose: 10 mg Aspirin (Aspirin, Baby) 81 mg PO DAILY@0800 [facility] Last Admin: 04/11/17 07:59 Dose: 81 mg Atorvastatin Calcium (Lipitor) 80 mg PO DAILY [facility] Last Admin: 04/11/17 07:59 Dose: 80 mg Bisacodyl (Dulcolax) 10 mg RECTAL .PRN X 1 PRN PRN Reason: Constipation Budesonide (Pulmicort Aerosol) 0.5 mg INHALATION Q12H.RT [facility] Last Admin: 04/11/17 07:30 Dose: 0.5 mg Clopidogrel Bisulfate (Plavix) 75 mg PO DAILY [facility] Last Admin: 04/11/17 08:00 Dose: 75 mg Diphenhydramine HCl (Benadryl) 25 mg PO QHS PRN PRN PRN Reason: PRURITIS Last Admin: 04/10/17 19:45 Dose: 25 mg Enoxaparin Sodium (Lovenox) 40 mg SC DAILY@0600 [facility] Last Admin: 04/11/17 05:19 Dose: 40 mg Famotidine (Pepcid) 20 mg PO BID [facility] Last Admin: 04/11/17 07:59 Dose: 20 mg Lisinopril (Zestril) 40 mg PO DAILY [facility] Last Admin: 04/11/17 08:00 Dose: 40 mg Magnesium Hydroxide (Milk Of Magnesia) 30 ml PO .PRN X 1 PRN PRN Reason: Constipation Potassium Chloride (K-Dur) [facility] Stop: 04/13/17 08:00 Last Admin: 04/11/17 07:59 Dose: 40 meq Senna/Docusate Sodium (Senokot-S, Donita-Colace) 2 tablet PO DAILY [facility] Last Admin: 04/11/17 05:55 Dose: Not Given Sodium Chloride () 5 - 30 ml IV UD PRN PRN Reason: SALINE FLUSH Last Admin: 04/09/17 21:04 Dose: 10 ml Assessment/Plan Debility s/p tight thalamic/IC stroke. goal of rehab is pentecostal of functional independence. Plan: - Physical therapy for gait and balance - Occupational Therapy for ADLs - Speech therapy - As needed analgesics - Bowel protocol - Stroke prevention -> ASA 81 mg daily and Plavix 75 mg daily. Dual AP for 1 month then switch to single AP and Lipitor 80mg - DVT Prophylaxis: SCDs, lovenox. - TTE-EF 65%, mildly dilated LA, no PFO - -MRI brain and MRA head/neck MRA of the head with incomplete [place] with no MRA evidence of hemodynamically significant stenosis with generally ectatic arteries of the [place], MRA of the neck without evidence for vascular occlusion - Will obtain a 30 day event monitor on discharge - Goal of BP <130/80, and A1C < 7% - Hypertension: BP above goal 130/80 still, increased HCTZ/Lisinopril the day prior and added norvasc, will monitor today and if pressures do not improve will increase ACEI further. - Tobacco Abuse: Encouraged cessation, inpatient consultation per RT, NR if desired. - Anxiety: Continue home Celexa regimen, Ativan PRN. - Chronic COPD: ATC duonebs, PRN albuterol, HOB, IS parameters. - Hyponatremia -> Na 127, hospitalist ordered a Liter of NS => Renal was consulted by the hospitalist pending their recs, the patients Cortisol was 29.10, UA Osmolality 216, UA Random Na 75 and Urine creatine <13 - Hyponatremia => fluid restriction 1200cc/day, Na level is 129 on morning labs
--- NOTE | 2017-04-11 12:33 | NURSING ---
restraints were removed for one hour while pt slept
[2017-04-11 12:54] VITALS: BMI 25.2
[2017-04-11 13:33] VITALS: PULSE 99; RESP 18
[2017-04-11] MEDS: Acetaminophen 325 MG Tablet 650 MG PO (17:17)
[2017-04-11 19:27] VITALS: BP 118/70; PULSE 83; RESP 12; TEMP 36.4; O2SAT 95
[2017-04-11] MEDS: DiphenhydrAMINE 25 MG Capsule PO (20:21)
--- NOTE | 2017-04-12 02:02 | NURSING ---
PT INCONTINENT OF LARGE AMT LIQUID, MONGE STOOL TO ATTENDS AND FLOOR AND CLOTHING. CLEANED AND CHANGED BY STAFF.PT VOIDS SMALL AMT URINE TOO-NOT MEASURED. PT REPORTS TO FEEL WELL AND CONFUSED WHY SHE IS INCONTINENT OF STOOL.
[2017-04-12 05:00] VITALS: BMI 25.2
[2017-04-12] MEDS: Enoxaparin 40 MG/0.4 ML Syringe SC (05:02)
[2017-04-12 06:23] LABS: Anion Gap 6 (5-15); BUN 22 mg/dL (7-18); BUN/Creat Ratio 23.7 RATIO (10-20); Calcium,Total 8.5 mg/dL (8.5-10.1); Chloride 103 mmol/L (98-107); Creatinine, Serum 0.93 mg/dL (0.55-1.02); EST Glomerular Filtration Rate 64 mL/min (>60); Est Glom Filt Rate - Afr Amer 78 mL/min (>60); Estimated Creatinine Clearance 50.55 ml/min; Glucose 94 mg/dL (74-106); Potassium 4.3 mmol/L (3.5-5.1); Sodium Level 131 mmol/L (136-145)
[2017-04-12 06:45] VITALS: PULSE 90; RESP 16; O2SAT 95
[2017-04-12] MEDS: Budesonide Respules 0.5 MG/2 ML AMPUL.NEB. INHALATION (06:45)
[2017-04-12] MEDS: Ipratropium/Albuterol Sulfate 3 ML AMPUL.NEB INHALATION ×2 (06:45→13:10)
[2017-04-12 07:19] VITALS: BP 134/84; PULSE 81; RESP 17; TEMP 36.5; O2SAT 99
[2017-04-12] MEDS: amLODIPine 10 MG Tablet PO (07:42)
[2017-04-12] MEDS: Atorvastatin Calcium 80 MG Tablet PO (07:42)
[2017-04-12] MEDS: Famotidine 20 MG Tablet PO (07:42)
[2017-04-12] MEDS: Lisinopril 40 MG Tablet PO (07:42)
[2017-04-12] MEDS: Clopidogrel Bisulfate 75 MG Tablet PO (07:42)
[2017-04-12] MEDS: Aspirin 81 MG TAB.CHEW PO (07:42)
--- NOTE | 2017-04-12 08:45 | PCM.PN.REN ---
Subjective: complains of diarrhea past 2 mornings. She states on several new meds lipitor, potassium, amlodipine. Will stop potassium suppl since potassium is improved. - Physical Exam General: Alert, Oriented x3, Cooperative Lungs: Clear to auscultation Cardiovascular: Regular rate Extremities: No edema Neurological: - - left sided weakness Psych/Mental Status: Normal Affect, Alert and oriented to time, place, person, mood and affect Vital Signs Temp Pulse Resp BP Pulse Ox 97.7 F L 81 17 134/84 H 99 04/12/17 07:19 04/12/17 07:19 04/12/17 07:19 04/12/17 07:19 04/12/17 07:19 Oxygen Delivery Method Room Air Weight: 63.4 kg Body Mass Index (BMI) 25.2 Finger Stick Blood Glucose 90 Intake and Output for Last 24 Hours 04/10/17 04/11/17 04/12/17 23:59 23:59 23:59 Intake Total 1215 / 1215 1220 / 1220 120 / 120 Output Total 600 / 600 1420 / 1420 200 / 200 Balance 615 / 615 -200 / -200 -80 / -80 Laboratory Tests Past 24 Hrs 04/12/17 05:35 Sodium 131 L Potassium 4.3 Chloride 103 Carbon Dioxide 22.0 Anion Gap 6 BUN 22 H Creatinine 0.93 Estim Creat Clear Calc 50.55 Est GFR (MDRD) Af Amer 78 Est GFR (MDRD) Non-Af 64 BUN/Creatinine Ratio 23.7 H Glucose 94 Calcium 8.5 Assessment/Plan 1. 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 Sodium improved to 131 today. Continue fluid restriction until sodium normalizes 2. Hypertension stable 3. hypokalemia likely due to thiazide diuretic. K improved. stop KCL. 4. 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 5. diarrhea x2 days, will stop KCL. Consider stool for c diff if continues off kcl. DW nursing
--- NOTE | 2017-04-12 08:50 | PN.RENAL_ITS ---
Subjective: complains of diarrhea past 2 mornings. She states on several new meds lipitor, potassium, amlodipine. Will stop potassium suppl since potassium is improved. - Physical Exam General: Alert, Oriented x3, Cooperative Lungs: Clear to auscultation Cardiovascular: Regular rate Extremities: No edema Neurological: - - left sided weakness Psych/Mental Status: Normal Affect, Alert and oriented to time, place, person, mood and affect Vital Signs Temp Pulse Resp BP Pulse Ox 97.7 F L 81 17 134/84 H 99 04/12/17 07:19 04/12/17 07:19 04/12/17 07:19 04/12/17 07:19 04/12/17 07:19 Oxygen Delivery Method Room Air Weight: 63.4 kg Body Mass Index (BMI) 25.2 Finger Stick Blood Glucose 90 Intake and Output for Last 24 Hours 04/10/17 04/11/17 04/12/17 23:59 23:59 23:59 Intake Total 1215 / 1215 1220 / 1220 120 / 120 Output Total 600 / 600 1420 / 1420 200 / 200 Balance 615 / 615 -200 / -200 -80 / -80 Laboratory Tests Past 24 Hrs 04/12/17 05:35 Sodium 131 L Potassium 4.3 Chloride 103 Carbon Dioxide 22.0 Anion Gap 6 BUN 22 H Creatinine 0.93 Estim Creat Clear Calc 50.55 Est GFR (MDRD) Af Amer 78 Est GFR (MDRD) Non-Af 64 BUN/Creatinine Ratio 23.7 H Glucose 94 Calcium 8.5 Assessment/Plan 1. 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 Sodium improved to 131 today. Continue fluid restriction until sodium normalizes 2. Hypertension stable 3. hypokalemia likely due to thiazide diuretic. K improved. stop KCL. 4. Acute right thalamic and internal capsule stroke with residual left jonatan- plegia continue rehab. 5. diarrhea x2 days, will stop KCL. Consider stool for c diff if continues off kcl. DW nursing
--- NOTE | 2017-04-12 09:57 | PCM.PN.NEU ---
Subjective: Staffed in team meeting. Family at bedside. Questions answered. With Physical therapy, the patient is stand by assist for transfers and pivots. She is able to walk about 150feet at stand by assist. She does have a left foot drop and her knee hyperextends, she has a soft knee brace in place which helps with her walking, will procure a AFO for her left ankle. With Occupational therapy she can do all her own care, she does however require minimal to contact guard for balance. She has less Ataxia in her Left arm and it continues to improve. With speech therapy she is doing well no issues with eating they have discharged her from their service. With Nursing, Her Sodium is also improving it is 131 today, she remains on fluid restriction of 1200cc/day. She is still having episodes of diarrhea in the AM, will d/c the Potassium supplement, it is currently 4.3, and the Pepcid she does not have GERD, and since both can cause diarrhea. The team feels she would benefit from another week of therapy. She will be re-teamed on of next week. - Physical Exam General: Alert, Oriented x3, Cooperative HEENT: Atraumatic, PERRLA, EOMI, Normocephalic Neck: Supple, No JVD, Negative Carotid Bruits Lungs: Clear to auscultation, Normal air movement Cardiovascular: Regular rate, No murmurs Abdomen: Bowel Sounds Present, Soft, Non Tender Extremities: No edema, Capillary Refill Less than 3 Seconds Skin: No rashes, No breakdown Musculoskeletal: No Tenderness to Palpation of Joints or Extremities Neurological: Cranial nerves II-XII grossly intact Psych/Mental Status: Normal Affect, Appropriate Vital Signs Temp Pulse Resp BP Pulse Ox 97.7 F L 81 17 134/84 H 99 04/12/17 07:19 04/12/17 07:19 04/12/17 07:19 04/12/17 07:19 04/12/17 07:19 Oxygen Delivery Method Room Air Weight: 63.4 kg Body Mass Index (BMI) 25.2 Finger Stick Blood Glucose 90 Intake and Output for Last 24 Hours 04/10/17 04/11/17 04/12/17 23:59 23:59 23:59 Intake Total 1215 / 1215 1220 / 1220 120 / 120 Output Total 600 / 600 1420 / 1420 200 / 200 Balance 615 / 615 -200 / -200 -80 / -80 Laboratory Tests Past 24 Hrs 04/12/17 05:35 Sodium 131 L Potassium 4.3 Chloride 103 Carbon Dioxide 22.0 Anion Gap 6 BUN 22 H Creatinine 0.93 Estim Creat Clear Calc 50.55 Est GFR (MDRD) Af Amer 78 Est GFR (MDRD) Non-Af 64 BUN/Creatinine Ratio 23.7 H Glucose 94 Calcium 8.5 Active Medications Acetaminophen (Tylenol) 650 mg PO Q6H PRN PRN PRN Reason: Mild Pain (0-3/10)/Headache Last Admin: 04/11/17 17:17 Dose: 650 mg Al Hydroxide/Mg Hydroxide (Mylanta Ii) 30 ml PO Q6H PRN PRN PRN Reason: Gastric burning Albuterol Sulfate (Ventolin Aerosols) 2.5 mg INHALATION Q2H PRN PRN PRN Reason: dyspnea, wheezing' Albuterol/Ipratropium (Duoneb) 3 ml INHALATION Q6HWA.RT [facility] Last Admin: 04/12/17 06:45 Dose: 3 ml Amlodipine Besylate (Norvasc) 10 mg PO DAILY [facility] Last Admin: 04/12/17 07:42 Dose: 10 mg Aspirin (Aspirin, Baby) 81 mg PO DAILY@0800 [facility] Last Admin: 04/12/17 07:42 Dose: 81 mg Atorvastatin Calcium (Lipitor) 80 mg PO DAILY [facility] Last Admin: 04/12/17 07:42 Dose: 80 mg Bisacodyl (Dulcolax) 10 mg RECTAL .PRN X 1 PRN PRN Reason: Constipation Budesonide (Pulmicort Aerosol) 0.5 mg INHALATION Q12H.RT [facility] Last Admin: 04/11/17 20:06 Dose: Not Given Clopidogrel Bisulfate (Plavix) 75 mg PO DAILY [facility] Last Admin: 04/12/17 07:42 Dose: 75 mg Diphenhydramine HCl (Benadryl) 25 mg PO QHS PRN PRN PRN Reason: PRURITIS Last Admin: 04/11/17 20:21 Dose: 25 mg Emollient Ointment (Eucerin Intensive Repair) 1 applic TOPICAL 4X/DAY PRN PRN; Protocol PRN Reason: DRYNESS Enoxaparin Sodium (Lovenox) 40 mg SC DAILY@0600 [facility] Last Admin: 04/12/17 05:02 Dose: 40 mg Lisinopril (Zestril) 40 mg PO DAILY [facility] Last Admin: 04/12/17 07:42 Dose: 40 mg Magnesium Hydroxide (Milk Of Magnesia) 30 ml PO .PRN X 1 PRN PRN Reason: Constipation Sodium Chloride () 5 - 30 ml IV UD PRN PRN Reason: SALINE FLUSH Last Admin: 04/09/17 21:04 Dose: 10 ml Assessment/Plan Debility s/p tight thalamic/IC stroke. goal of rehab is orthodoxy of functional independence. Plan: - Physical therapy for gait and balance - Occupational Therapy for ADLs - Speech therapy - As needed analgesics - Bowel protocol - Stroke prevention -> ASA 81 mg daily and Plavix 75 mg daily. Dual AP for 1 month then switch to single AP and Lipitor 80mg - DVT Prophylaxis: SCDs, lovenox. - TTE-EF 65%, mildly dilated LA, no PFO - -MRI brain and MRA head/neck MRA of the head with incomplete [place] of [place] with no MRA evidence of hemodynamically significant stenosis with generally ectatic arteries of the [place], MRA of the neck without evidence for vascular occlusion - Will obtain a 30 day event monitor on discharge - Goal of BP <130/80, and A1C < 7% - Hypertension: BP above goal 130/80 still, increased HCTZ/Lisinopril the day prior and added norvasc, will monitor today and if pressures do not improve will increase ACEI further. - Tobacco Abuse: Encouraged cessation, inpatient consultation per RT, NR if desired. - Anxiety: Continue home Celexa regimen, Ativan PRN. - Chronic COPD: ATC duonebs, PRN albuterol, HOB, IS parameters. - Hyponatremia -> Na 127, hospitalist ordered a Liter of NS => Renal was consulted by the hospitalist pending their recs, the patients Cortisol was 29.10, UA Osmolality 216, UA Random Na 75 and Urine creatine <13 - Hyponatremia => fluid restriction 1200cc/day, Na level has improved currently 131 on morning labs - Diarrhea => started on several new meds will d/c the Potassium supplement her K+ is improving its 3.1 today, and will d/c the Pepcid since there is no history of GERD.
--- NOTE | 2017-04-12 10:03 | PN.NEURO_ITS ---
Subjective: Staffed in team meeting. Family at bedside. Questions answered. With Physical therapy, the patient is stand by assist for transfers and pivots. She is able to walk about 150feet at stand by assist. She does have a left foot drop and her knee hyperextends, she has a soft knee brace in place which helps with her walking, will procure a AFO for her left ankle. With Occupational therapy she can do all her own care, she does however require minimal to contact guard for balance. She has less Ataxia in her Left arm and it continues to improve. With speech therapy she is doing well no issues with eating they have discharged her from their service. With Nursing, Her Sodium is also improving it is 131 today, she remains on fluid restriction of 1200cc/day. She is still having episodes of diarrhea in the AM, will d/c the Potassium supplement, it is currently 4.3, and the Pepcid she does not have GERD, and since both can cause diarrhea. The team feels she would benefit from another week of therapy. She will be re- teamed on of next week. - Physical Exam General: Alert, Oriented x3, Cooperative HEENT: Atraumatic, PERRLA, EOMI, Normocephalic Neck: Supple, No JVD, Negative Carotid Bruits Lungs: Clear to auscultation, Normal air movement Cardiovascular: Regular rate, No murmurs Abdomen: Bowel Sounds Present, Soft, Non Tender Extremities: No edema, Capillary Refill Less than 3 Seconds Skin: No rashes, No breakdown Musculoskeletal: No Tenderness to Palpation of Joints or Extremities Neurological: Cranial nerves II-XII grossly intact Psych/Mental Status: Normal Affect, Appropriate Vital Signs Temp Pulse Resp BP Pulse Ox 97.7 F L 81 17 134/84 H 99 04/12/17 07:19 04/12/17 07:19 04/12/17 07:19 04/12/17 07:19 04/12/17 07:19 Oxygen Delivery Method Room Air Weight: 63.4 kg Body Mass Index (BMI) 25.2 Finger Stick Blood Glucose 90 Intake and Output for Last 24 Hours 04/10/17 04/11/17 04/12/17 23:59 23:59 23:59 Intake Total 1215 / 1215 1220 / 1220 120 / 120 Output Total 600 / 600 1420 / 1420 200 / 200 Balance 615 / 615 -200 / -200 -80 / -80 Laboratory Tests Past 24 Hrs 04/12/17 05:35 Sodium 131 L Potassium 4.3 Chloride 103 Carbon Dioxide 22.0 Anion Gap 6 BUN 22 H Creatinine 0.93 Estim Creat Clear Calc 50.55 Est GFR (MDRD) Af Amer 78 Est GFR (MDRD) Non-Af 64 BUN/Creatinine Ratio 23.7 H Glucose 94 Calcium 8.5 Active Medications Acetaminophen (Tylenol) 650 mg PO Q6H PRN PRN PRN Reason: Mild Pain (0-3/10)/Headache Last Admin: 04/11/17 17:17 Dose: 650 mg Al Hydroxide/Mg Hydroxide (Mylanta Ii) 30 ml PO Q6H PRN PRN PRN Reason: Gastric burning Albuterol Sulfate (Ventolin Aerosols) 2.5 mg INHALATION Q2H PRN PRN PRN Reason: dyspnea, wheezing' Albuterol/Ipratropium (Duoneb) 3 ml INHALATION Q6HWA.RT [facility] Last Admin: 04/12/17 06:45 Dose: 3 ml Amlodipine Besylate (Norvasc) 10 mg PO DAILY [facility] Last Admin: 04/12/17 07:42 Dose: 10 mg Aspirin (Aspirin, Baby) 81 mg PO DAILY@0800 [facility] Last Admin: 04/12/17 07:42 Dose: 81 mg Atorvastatin Calcium (Lipitor) 80 mg PO DAILY [facility] Last Admin: 04/12/17 07:42 Dose: 80 mg Bisacodyl (Dulcolax) 10 mg RECTAL .PRN X 1 PRN PRN Reason: Constipation Budesonide (Pulmicort Aerosol) 0.5 mg INHALATION Q12H.RT [facility] Last Admin: 04/11/17 20:06 Dose: Not Given Clopidogrel Bisulfate (Plavix) 75 mg PO DAILY [facility] Last Admin: 04/12/17 07:42 Dose: 75 mg Diphenhydramine HCl (Benadryl) 25 mg PO QHS PRN PRN PRN Reason: PRURITIS Last Admin: 04/11/17 20:21 Dose: 25 mg Emollient Ointment (Eucerin Intensive Repair) 1 applic TOPICAL 4X/DAY PRN PRN; Protocol PRN Reason: DRYNESS Enoxaparin Sodium (Lovenox) 40 mg SC DAILY@0600 [facility] Last Admin: 04/12/17 05:02 Dose: 40 mg Lisinopril (Zestril) 40 mg PO DAILY [facility] Last Admin: 04/12/17 07:42 Dose: 40 mg Magnesium Hydroxide (Milk Of Magnesia) 30 ml PO .PRN X 1 PRN PRN Reason: Constipation Sodium Chloride () 5 - 30 ml IV UD PRN PRN Reason: SALINE FLUSH Last Admin: 04/09/17 21:04 Dose: 10 ml Assessment/Plan Debility s/p tight thalamic/IC stroke. goal of rehab is presybeterian of functional independence. Plan: - Physical therapy for gait and balance - Occupational Therapy for ADLs - Speech therapy - As needed analgesics - Bowel protocol - Stroke prevention -> ASA 81 mg daily and Plavix 75 mg daily. Dual AP for 1 month then switch to single AP and Lipitor 80mg - DVT Prophylaxis: SCDs, lovenox. - TTE-EF 65%, mildly dilated LA, no PFO - -MRI brain and MRA head/neck MRA of the head with incomplete [place] of [place] with no MRA evidence of hemodynamically significant stenosis with generally ectatic arteries of the [place] of [place], MRA of the neck without evidence for vascular occlusion - Will obtain a 30 day event monitor on discharge - Goal of BP <130/80, and A1C < 7% - Hypertension: BP above goal 130/80 still, increased HCTZ/Lisinopril the day prior and added norvasc, will monitor today and if pressures do not improve will increase ACEI further. - Tobacco Abuse: Encouraged cessation, inpatient consultation per RT, NR if desired. - Anxiety: Continue home Celexa regimen, Ativan PRN. - Chronic COPD: ATC duonebs, PRN albuterol, HOB, IS parameters. - Hyponatremia -> Na 127, hospitalist ordered a Liter of NS => Renal was consulted by the hospitalist pending their recs, the patients Cortisol was 29.10 , UA Osmolality 216, UA Random Na 75 and Urine creatine <13 - Hyponatremia => fluid restriction 1200cc/day, Na level has improved currently 131 on morning labs - Diarrhea => started on several new meds will d/c the Potassium supplement her K+ is improving its 3.1 today, and will d/c the Pepcid since there is no history of GERD.
--- NOTE | 2017-04-12 11:17 | CASEMGMT ---
Team meeting held. Patient present as well as patient family. No discharge date set at this time. Plan to continue with further care and treatment on the Inpatient Rehab Unit. Patient plans to discharge home with spouse when discharge time comes. Support given. Will continue to follow. Laurel SANTIAGO, RACKING MACHINE OPERATOR
--- NOTE | 2017-04-12 12:08 | PN_ITS ---
<Jose Martin Atwood - Last Filed: 04/12/17 11:58> Subjective: Pt resting comfortably in bed NAD. She had one episode of diarrhea last night and this AM. No abdominal pain. She has been wheezing per the nursing staff but has had no SOB or cough. No fevers or chills. Her strength is improving in her left side very well verus the acute stroke when she had little function. She plans to be here x 1 more week. Pt has been off citalopram and has had no issues with anxiety or mood. - Physical Exam General: Alert, Oriented x3, Cooperative HEENT: Atraumatic, PERRLA, EOMI, Normocephalic Neck: Supple, No JVD, Negative Carotid Bruits Lungs: Clear to auscultation, Normal air movement, Wheezes - diffuse Cardiovascular: Regular rate, No murmurs Abdomen: Bowel Sounds Present, Soft, Non Tender Extremities: No edema, Capillary Refill Less than 3 Seconds Skin: No rashes, No breakdown Musculoskeletal: No Tenderness to Palpation of Joints or Extremities Neurological: Cranial nerves II-XII grossly intact Psych/Mental Status: Normal Affect, Appropriate, Alert and oriented to time, place, person, mood and affect Vital Signs Temp Pulse Resp BP Pulse Ox 97.7 F L 81 17 134/84 H 99 04/12/17 07:19 04/12/17 07:19 04/12/17 07:19 04/12/17 07:19 04/12/17 07:19 Oxygen Delivery Method Room Air Weight: 63.4 kg Body Mass Index (BMI) 25.2 Finger Stick Blood Glucose 90 Intake and Output for Last 24 Hours 04/10/17 04/11/17 04/12/17 23:59 23:59 23:59 Intake Total 1215 / 1215 1220 / 1220 120 / 120 Output Total 600 / 600 1420 / 1420 200 / 200 Balance 615 / 615 -200 / -200 -80 / -80 Laboratory Tests Past 24 Hrs 04/12/17 05:35 Sodium 131 L Potassium 4.3 Chloride 103 Carbon Dioxide 22.0 Anion Gap 6 BUN 22 H Creatinine 0.93 Estim Creat Clear Calc 50.55 Est GFR (MDRD) Af Amer 78 Est GFR (MDRD) Non-Af 64 BUN/Creatinine Ratio 23.7 H Glucose 94 Calcium 8.5 Assessment/Plan 1. L sided weakness 2/2 recent acute infarct right thalamic and posterior limb of the right internal capsule. Therapy per neuro and rehab team. On asa, lipitor , plavix. 2. 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 HTN - running somewhat high, but fluctuant, will trend for now and adjust medications. Defer adding anything now with diarrhea. Should remain off HCTZ permanently. 4. Tobacco abuse - encouraged cessation given recent stroke. She has been ok without it so far and plans to continue without it 5. COPD - wheezing but no SOB and oxygenation has been good. Continue current aerosols and incentive spirometer. 6. Diarrhea - x 2 episodes. Potassium discontinued. No blood or abdominal pain. No further intervention or work up at this time unless it worsens. No fever, will get CBC and BMP in AM. 7. Anxiety - no SSRI withdrawal symptoms. DVT ppx: SCDs lovenox This patient was seen by Jose Martin Atwood PA-C under the supervision of Dr. Sun. <Carla Sun E - Last Filed: 04/12/17 14:08> - Physical Exam Vital Signs Temp Pulse Resp BP Pulse Ox 97.7 F L 100 16 134/84 H 98 04/12/17 07:19 04/12/17 13:10 04/12/17 13:10 04/12/17 07:19 04/12/17 13:10 Oxygen Delivery Method Room Air Weight: 139 lb 12.369 oz Body Mass Index (BMI) 25.2 Finger Stick Blood Glucose 90 Intake and Output for Last 24 Hours 04/10/17 04/11/17 04/12/17 23:59 23:59 23:59 Intake Total 1215 / 1215 1220 / 1220 120 / 120 Output Total 600 / 600 1420 / 1420 450 / 450 Balance 615 / 615 -200 / -200 -330 / -330 Laboratory Tests Past 24 Hrs 04/12/17 05:35 Sodium 131 L Potassium 4.3 Chloride 103 Carbon Dioxide 22.0 Anion Gap 6 BUN 22 H Creatinine 0.93 Estim Creat Clear Calc 50.55 Est GFR (MDRD) Af Amer 78 Est GFR (MDRD) Non-Af 64 BUN/Creatinine Ratio 23.7 H Glucose 94 Calcium 8.5 Assessment/Plan Hospitalist note: I am seeing this patient in conjunction with Jose Martin Atwood. I independently seen and examined the patient. Progress note above reviewed and I agree with above treatment plan. Patient seen and examined. She denied any significant complaints. Weakness of the left upper and lower extremity has been improving. Patient is doing well with physical therapy. Vital signs are stable, blood pressure under control. - Physical Exam General: Alert, Oriented x3, Cooperative, No apparent distress. HEENT: Atraumatic, PERRLA, EOMI. Neck: Supple, No JVD, Negative Carotid Bruits, Trachea Midline, Thyroid Normal. Lungs: Clear to auscultation, Normal air movement, No rhonchi, No wheeze, No rales. Cardiovascular: Regular rate, Regular Rhythm, Normal S1, Normal S2, PMI Normal. Abdomen: Bowel Sounds Present, Soft, Non Tender, Non-Distended, No Hepato- splenomegaly. Extremities: No clubbing, No cyanosis, No edema Skin: No rashes, No breakdown Neurological: Cranial nerves are intact, left-sided minimal hemiparesis which is more prominent on the left lower extremity. Vital Signs are stable. Assessment and plan: #1 acute ischemic stroke: Of the right thalamic and posterior limb of the internal capsule with resultant minimal left-sided hemiparesis. She is on aspirin, Plavix and statins. Vital signs are stable, weakness of the left side is improving. Plan to continue PT OT according to rehab team. #2 hyponatremia: Likely because of HCTZ, it is chronic. Sodium level is improving. #3 other chronic medical problems: Stable, continue current medications as above. This note was generated with [employer] dictation software. It may contain incorrect words, spelling, and punctuation that were not noted in checking the note before signing. Code Visit Inpatient E&M: 77061 Subs Hosp L2
[2017-04-12 13:10] VITALS: PULSE 100; RESP 16; O2SAT 98
[2017-04-12 17:00] VITALS: BMI 25.2
[2017-04-12] MEDS: Acetaminophen 325 MG Tablet 650 MG PO (20:17)
[2017-04-12] MEDS: DiphenhydrAMINE 25 MG Capsule PO (20:17)
[2017-04-12 20:21] VITALS: BP 152/75; PULSE 92; RESP 18; TEMP 36.4; O2SAT 94
[2017-04-12 20:22] VITALS: BMI 25.2
[2017-04-13] MEDS: Enoxaparin 40 MG/0.4 ML Syringe SC (05:20)
[2017-04-13 05:46] LABS: Absolute Lymphocyte Count 0.65 X10^3/ul (0.83-4.51); Absolute Neutrophil Count 4.7 X10^3/uL (2.0-7.7); Basophil# 0.02 X10^3/uL; Basophil% 0.3 % (0-1); Eosinophil# 0.18 X10^3/uL; Eosinophils% 2.9 % (0-5); Hematocrit 34.6 % (37-47); Hemoglobin 11.6 g/dl (12.0-15.0); Lymphocyte # 0.65 X10^3/ul (4.0); Lymphocyte % 10.5 % (19-41); Mean Corp Hgb Conc 33.5 g/gl (32-36); Mean Corpuscular Hgb 30.7 pg (27.0-32.0); Mean Corpuscular Volume 91.5 fL (81-99); Mean Platelet Vol. 9.4 fl (6.2-12.0); Monocyte# 0.68 X10^3/uL; Neutrophil # 4.65 X10^3/uL (2.7-7.7); Neutrophil % 75.1 % (47-70); Platelet Count 286 K/mm3 (150-450); RBC Distribution Width CV 14.6 % (11.6-14.6); RBC Distribution Width SD 47.7 fl (35.1-43.9); Red Blood Count 3.78 M/mm3 (4.2-5.4); White Blood Count 6.2 K/mm3 (4.4-11.0)
[2017-04-13 05:51] LABS: POSITIVE COUNT NO; POSITIVE DIFFERENTIAL NO; POSITIVE MORPHOLOGY NO
[2017-04-13 06:00] LABS: Anion Gap 9 (5-15); BUN 24 mg/dL (7-18); Calcium,Total 8.6 mg/dL (8.5-10.1); Chloride 105 mmol/L (98-107); Creatinine, Serum 0.96 mg/dL (0.55-1.02); EST Glomerular Filtration Rate 62 mL/min (>60); Est Glom Filt Rate - Afr Amer 75 mL/min (>60); Estimated Creatinine Clearance 48.97 ml/min; Glucose 96 mg/dL (74-106); Potassium 4.5 mmol/L (3.5-5.1); Sodium Level 133 mmol/L (136-145)
--- NOTE | 2017-04-13 08:15 | NURSING ---
while working with therapy, pt c/o slight dizziness/lightheadedness with ambulation and continues while sitting. vitals obtained. tonja baugh rn notified. will monitor. pt feels ok to cont with therapy.
[2017-04-13 08:16] VITALS: BP 142/81; PULSE 100; RESP 18; O2SAT 98
[2017-04-13 08:24] VITALS: BP 130/79; PULSE 91; RESP 18; TEMP 36.6; O2SAT 99
[2017-04-13] MEDS: Lisinopril 40 MG Tablet PO (09:22)
[2017-04-13] MEDS: Aspirin 81 MG TAB.CHEW PO (09:22)
[2017-04-13] MEDS: Clopidogrel Bisulfate 75 MG Tablet PO (09:22)
[2017-04-13] MEDS: amLODIPine 10 MG Tablet PO (09:22)
[2017-04-13] MEDS: Atorvastatin Calcium 80 MG Tablet PO (09:22)
[2017-04-13 09:34] VITALS: BMI 25.2
[2017-04-13 13:55] VITALS: PULSE 129; RESP 20; O2SAT 90
[2017-04-13] MEDS: Ipratropium/Albuterol Sulfate 3 ML AMPUL.NEB INHALATION ×2 (13:55→18:50)
[2017-04-13] MEDS: Budesonide Respules 0.5 MG/2 ML AMPUL.NEB. INHALATION (13:55)
[2017-04-13 18:50] VITALS: PULSE 92; RESP 18; O2SAT 99
[2017-04-13 19:25] VITALS: BP 139/83; PULSE 84; RESP 18; TEMP 36.9; O2SAT 98
[2017-04-13] MEDS: DiphenhydrAMINE 25 MG Capsule PO (20:49)
[2017-04-14] MEDS: Enoxaparin 40 MG/0.4 ML Syringe SC (06:26)
[2017-04-14 07:48] VITALS: BP 118/68; PULSE 98; RESP 18; TEMP 36.9; O2SAT 96
[2017-04-14] MEDS: amLODIPine 10 MG Tablet PO (07:49)
[2017-04-14] MEDS: Clopidogrel Bisulfate 75 MG Tablet PO (07:49)
[2017-04-14] MEDS: Atorvastatin Calcium 80 MG Tablet PO (07:49)
[2017-04-14] MEDS: Aspirin 81 MG TAB.CHEW PO (07:49)
[2017-04-14] MEDS: Lisinopril 40 MG Tablet PO (07:49)
[2017-04-14 07:50] VITALS: PULSE 100; RESP 18; O2SAT 98
[2017-04-14] MEDS: Ipratropium/Albuterol Sulfate 3 ML AMPUL.NEB INHALATION ×2 (07:50→19:09)
[2017-04-14] MEDS: Budesonide Respules 0.5 MG/2 ML AMPUL.NEB. INHALATION ×2 (07:53→19:09)
[2017-04-14 09:34] VITALS: BMI 25.2
[2017-04-14 13:00] VITALS: PULSE 100; RESP 16; O2SAT 99
--- NOTE | 2017-04-14 13:58 | PCM.PROGNOTE ---
<Jose Martin Atwood - Last Filed: 04/14/17 13:58> Subjective: Pt has no complaints. She has been compliant with fluid restriction and sodium continues to improve. She has had no further diarrhea. - Physical Exam General: Alert, Oriented x3, Cooperative HEENT: Atraumatic, PERRLA, EOMI, Normocephalic Neck: Supple, No JVD, Negative Carotid Bruits Lungs: Clear to auscultation, Normal air movement Cardiovascular: Regular rate, No murmurs Abdomen: Bowel Sounds Present, Soft, Non Tender Extremities: No edema, Capillary Refill Less than 3 Seconds Skin: No rashes, No breakdown Musculoskeletal: No Tenderness to Palpation of Joints or Extremities Neurological: Cranial nerves II-XII grossly intact Psych/Mental Status: Normal Affect, Appropriate, Alert and oriented to time, place, person, mood and affect Vital Signs Temp Pulse Resp BP Pulse Ox 98.4 F 100 16 118/68 99 04/14/17 07:48 04/14/17 13:00 04/14/17 13:00 04/14/17 07:48 04/14/17 13:00 Oxygen Delivery Method Room Air Weight: 63.4 kg Body Mass Index (BMI) 25.2 Finger Stick Blood Glucose 90 Intake and Output for Last 24 Hours 04/12/17 04/13/17 04/14/17 23:59 23:59 23:59 Intake Total 380 / 380 1740 / 1740 260 / 260 Output Total 650 / 650 900 / 900 350 / 350 Balance -270 / -270 840 / 840 -90 / -90 Assessment/Plan 1. L sided weakness 2/2 recent acute infarct right thalamic and posterior limb of the right internal capsule. Therapy per neuro and rehab team. On asa, lipitor, plavix. 2. 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 Continue fluid restriction 3. HTN - stable. 4. Tobacco abuse - encouraged cessation given recent stroke. She has been ok without it so far and plans to continue without it 5. COPD - stable, lungs clear. 6. Diarrhea - resolved. 7. Anxiety - no SSRI withdrawal symptoms. DVT ppx: SCDs lovenox This patient was seen by Jose Martin Atwood PA-C under the supervision of Dr. Sun. <Carla Sun E - Last Filed: 04/14/17 14:57> - Physical Exam Vital Signs Temp Pulse Resp BP Pulse Ox 98.4 F 100 16 118/68 99 04/14/17 07:48 04/14/17 13:00 04/14/17 13:00 04/14/17 07:48 04/14/17 13:00 Oxygen Delivery Method Room Air Weight: 139 lb 12.369 oz Body Mass Index (BMI) 25.2 Finger Stick Blood Glucose 90 Intake and Output for Last 24 Hours 04/12/17 04/13/17 04/14/17 23:59 23:59 23:59 Intake Total 380 / 380 1740 / 1740 260 / 260 Output Total 650 / 650 900 / 900 350 / 350 Balance -270 / -270 840 / 840 -90 / -90 Assessment/Plan Hospitalist note: I am seeing this patient in conjunction with Jose Martin Atwood. I independently seen and examined the patient. Progress note above reviewed and I agree with above treatment plan. Patient seen and examined. No significant complaints. Weakness of the left upper and lower extremity continued to improve slowly. Patient is doing well with physical therapy. Vital signs are stable, blood pressure under control. - Physical Exam General: Alert, Oriented x3, Cooperative, No apparent distress. HEENT: Atraumatic, PERRLA, EOMI. Neck: Supple, No JVD, Negative Carotid Bruits, Trachea Midline, Thyroid Normal. Lungs: Clear to auscultation, Normal air movement, No rhonchi, No wheeze, No rales. Cardiovascular: Regular rate, Regular Rhythm, Normal S1, Normal S2, PMI Normal. Abdomen: Bowel Sounds Present, Soft, Non Tender, Non-Distended, No Hepato-splenomegaly. Extremities: No clubbing, No cyanosis, No edema Skin: No rashes, No breakdown Neurological: Cranial nerves are intact, left-sided minimal hemiparesis which is more prominent on the left lower extremity. Vital Signs are stable. Assessment and plan: #1 acute ischemic stroke: Of the right thalamic and posterior limb of the internal capsule with resultant minimal left-sided hemiparesis. She is on aspirin, Plavix and statins. Vital signs are stable, weakness of the left side is improving. Plan to continue PT OT according to rehab team. #2 hyponatremia: Likely because of HCTZ, it is chronic. Sodium level is improving yesterday sodium was 133. #3 other chronic medical problems: Stable, continue current medications as above. This note was generated with [employer] dictation software. It may contain incorrect words, spelling, and punctuation that were not noted in checking the note before signing. Code Visit Inpatient E&M: 60387 Subs Hosp L2
--- NOTE | 2017-04-14 14:01 | PN_ITS ---
<Jose Martin Atwood - Last Filed: 04/14/17 13:58> Subjective: Pt has no complaints. She has been compliant with fluid restriction and sodium continues to improve. She has had no further diarrhea. - Physical Exam General: Alert, Oriented x3, Cooperative HEENT: Atraumatic, PERRLA, EOMI, Normocephalic Neck: Supple, No JVD, Negative Carotid Bruits Lungs: Clear to auscultation, Normal air movement Cardiovascular: Regular rate, No murmurs Abdomen: Bowel Sounds Present, Soft, Non Tender Extremities: No edema, Capillary Refill Less than 3 Seconds Skin: No rashes, No breakdown Musculoskeletal: No Tenderness to Palpation of Joints or Extremities Neurological: Cranial nerves II-XII grossly intact Psych/Mental Status: Normal Affect, Appropriate, Alert and oriented to time, place, person, mood and affect Vital Signs Temp Pulse Resp BP Pulse Ox 98.4 F 100 16 118/68 99 04/14/17 07:48 04/14/17 13:00 04/14/17 13:00 04/14/17 07:48 04/14/17 13:00 Oxygen Delivery Method Room Air Weight: 63.4 kg Body Mass Index (BMI) 25.2 Finger Stick Blood Glucose 90 Intake and Output for Last 24 Hours 04/12/17 04/13/17 04/14/17 23:59 23:59 23:59 Intake Total 380 / 380 1740 / 1740 260 / 260 Output Total 650 / 650 900 / 900 350 / 350 Balance -270 / -270 840 / 840 -90 / -90 Assessment/Plan 1. L sided weakness 2/2 recent acute infarct right thalamic and posterior limb of the right internal capsule. Therapy per neuro and rehab team. On asa, lipitor , plavix. 2. 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 Continue fluid restriction 3. HTN - stable. 4. Tobacco abuse - encouraged cessation given recent stroke. She has been ok without it so far and plans to continue without it 5. COPD - stable, lungs clear. 6. Diarrhea - resolved. 7. Anxiety - no SSRI withdrawal symptoms. DVT ppx: SCDs lovenox This patient was seen by Jose Martin Atwood PA-C under the supervision of Dr. Sun. <Carla Sun E - Last Filed: 04/14/17 14:57> - Physical Exam Vital Signs Temp Pulse Resp BP Pulse Ox 98.4 F 100 16 118/68 99 04/14/17 07:48 04/14/17 13:00 04/14/17 13:00 04/14/17 07:48 04/14/17 13:00 Oxygen Delivery Method Room Air Weight: 139 lb 12.369 oz Body Mass Index (BMI) 25.2 Finger Stick Blood Glucose 90 Intake and Output for Last 24 Hours 04/12/17 04/13/17 04/14/17 23:59 23:59 23:59 Intake Total 380 / 380 1740 / 1740 260 / 260 Output Total 650 / 650 900 / 900 350 / 350 Balance -270 / -270 840 / 840 -90 / -90 Assessment/Plan Hospitalist note: I am seeing this patient in conjunction with Jose Martin Atwood. I independently seen and examined the patient. Progress note above reviewed and I agree with above treatment plan. Patient seen and examined. No significant complaints. Weakness of the left upper and lower extremity continued to improve slowly. Patient is doing well with physical therapy. Vital signs are stable, blood pressure under control. - Physical Exam General: Alert, Oriented x3, Cooperative, No apparent distress. HEENT: Atraumatic, PERRLA, EOMI. Neck: Supple, No JVD, Negative Carotid Bruits, Trachea Midline, Thyroid Normal. Lungs: Clear to auscultation, Normal air movement, No rhonchi, No wheeze, No rales. Cardiovascular: Regular rate, Regular Rhythm, Normal S1, Normal S2, PMI Normal. Abdomen: Bowel Sounds Present, Soft, Non Tender, Non-Distended, No Hepato- splenomegaly. Extremities: No clubbing, No cyanosis, No edema Skin: No rashes, No breakdown Neurological: Cranial nerves are intact, left-sided minimal hemiparesis which is more prominent on the left lower extremity. Vital Signs are stable. Assessment and plan: #1 acute ischemic stroke: Of the right thalamic and posterior limb of the internal capsule with resultant minimal left-sided hemiparesis. She is on aspirin, Plavix and statins. Vital signs are stable, weakness of the left side is improving. Plan to continue PT OT according to rehab team. #2 hyponatremia: Likely because of HCTZ, it is chronic. Sodium level is improving yesterday sodium was 133. #3 other chronic medical problems: Stable, continue current medications as above. This note was generated with [employer] dictation software. It may contain incorrect words, spelling, and punctuation that were not noted in checking the note before signing. Code Visit Inpatient E&M: 78675 Subs Hosp L2
[2017-04-14 18:21] VITALS: BP 127/77; PULSE 98; RESP 18; TEMP 36.7; O2SAT 98
[2017-04-14 19:10] VITALS: PULSE 105; RESP 16; O2SAT 98
[2017-04-15] MEDS: Enoxaparin 40 MG/0.4 ML Syringe SC (06:26)
[2017-04-15 07:05] VITALS: PULSE 105; RESP 18
[2017-04-15] MEDS: Budesonide Respules 0.5 MG/2 ML AMPUL.NEB. INHALATION ×2 (07:05→18:55)
[2017-04-15] MEDS: Ipratropium/Albuterol Sulfate 3 ML AMPUL.NEB INHALATION ×3 (07:05→18:55)
[2017-04-15 07:29] VITALS: BP 133/72; PULSE 106; RESP 18; TEMP 36.7; O2SAT 96
[2017-04-15] MEDS: Aspirin 81 MG TAB.CHEW PO (08:09)
[2017-04-15] MEDS: Atorvastatin Calcium 80 MG Tablet PO (08:09)
[2017-04-15] MEDS: Lisinopril 40 MG Tablet PO (08:09)
[2017-04-15] MEDS: amLODIPine 10 MG Tablet PO (08:09)
[2017-04-15] MEDS: Clopidogrel Bisulfate 75 MG Tablet PO (08:09)
[2017-04-15 09:55] VITALS: BMI 25.2
--- NOTE | 2017-04-15 10:37 | NURSING ---
pt ambulated > 150 ft x supervision in hallway this shift.
--- NOTE | 2017-04-15 12:59 | PN.NEURO_ITS ---
Subjective: No new complaints. is present. Tolerating therapies. No pain. Sleeping well. - Physical Exam General: Alert, Oriented x3, Cooperative, No apparent distress Abdomen: Bowel Sounds Present Extremities: No Calf Tenderness Neurological: Cranial nerves II-XII grossly intact Psych/Mental Status: Normal Affect Vital Signs Temp Pulse Resp BP Pulse Ox 36.7 C 106 H 18 133/72 H 96 04/15/17 07:29 04/15/17 07:29 04/15/17 07:29 04/15/17 07:29 04/15/17 07:29 Oxygen Delivery Method Room Air Weight: 63.4 kg Body Mass Index (BMI) 25.2 Finger Stick Blood Glucose 90 Intake and Output for Last 24 Hours 04/13/17 04/14/17 04/15/17 23:59 23:59 23:59 Intake Total 1740 / 1740 1000 / 1000 530 / 530 Output Total 900 / 900 350 / 350 450 / 450 Balance 840 / 840 650 / 650 80 / 80 Current Medications Generic Name Dose Route Start Last Admin Trade Name Freq PRN Reason Stop Dose Admin Acetaminophen 650 mg 04/05/17 16:12 04/12/17 20:17 Tylenol PO 650 mg Q6H PRN PRN Administration Mild Pain (0-3/10)/Headache Al Hydroxide/Mg Hydroxide 30 ml 04/05/17 15:42 Mylanta Ii PO Q6H PRN PRN Gastric burning Albuterol Sulfate 2.5 mg 04/05/17 15:42 Ventolin Aerosols INHALATION Q2H PRN PRN dyspnea, wheezing' Albuterol/Ipratropium 3 ml 04/05/17 16:30 04/15/17 07:05 Duoneb INHALATION 3 ml Q6HWA.RT SHEYLA Administration Amlodipine Besylate 10 mg 04/06/17 10:00 04/15/17 08:09 Norvasc PO 10 mg DAILY SHEYLA Administration Aspirin 81 mg 04/06/17 08:00 04/15/17 08:09 Aspirin, Baby PO 81 mg DAILY@0800 SHEYLA Administration Atorvastatin Calcium 80 mg 04/06/17 10:00 04/15/17 08:09 Lipitor PO 80 mg DAILY SHEYLA Administration Bisacodyl 10 mg 04/05/17 16:12 Dulcolax RECTAL .PRN X 1 PRN Constipation Budesonide 0.5 mg 04/10/17 06:45 04/15/17 07:05 Pulmicort Aerosol INHALATION 0.5 mg Q12H.RT SHEYLA Administration Clopidogrel Bisulfate 75 mg 04/06/17 10:00 04/15/17 08:09 Plavix PO 75 mg DAILY SHEYLA Administration Diphenhydramine HCl 25 mg 04/05/17 15:43 04/13/17 20:49 Benadryl PO 25 mg QHS PRN PRN Administration PRURITIS Emollient Ointment 1 applic 04/12/17 09:42 Eucerin Intensive Repair TOPICAL 4X/DAY PRN PRN DRYNESS Protocol Enoxaparin Sodium 40 mg 04/06/17 06:00 04/15/17 06:26 Lovenox SC 40 mg DAILY@0600 SHEYLA Administration Lisinopril 40 mg 04/08/17 10:00 04/15/17 08:09 Zestril PO 40 mg DAILY SHYELA Administration Magnesium Hydroxide 30 ml 04/05/17 16:12 Milk Of Magnesia PO .PRN X 1 PRN Constipation Sodium Chloride 5 - 30 ml 04/08/17 06:06 04/09/17 21:04 IV 10 ml UD PRN Administration SALINE FLUSH Assessment/Plan Ability status post right thalamic infarct. Plan: - Physical therapy for gait and balance - Occupational Therapy for ADLs - Speech therapy - As needed analgesics - Bowel protocol - Stroke prevention -> ASA 81 mg daily and Plavix 75 mg daily. Dual AP for 1 month then switch to single AP and Lipitor 80mg - DVT Prophylaxis: SCDs, lovenox. - Will obtain a 30 day event monitor on discharge - Goal of BP <130/80, and A1C < 7% - Hypertension: BP above goal 130/80 still, increased HCTZ/Lisinopril the day prior and added norvasc, will monitor today and if pressures do not improve will increase ACEI further. - Tobacco Abuse: Encouraged cessation, inpatient consultation per RT, NR if desired. - Anxiety: Continue home Celexa regimen, Ativan PRN. - Chronic COPD: ATC duonebs, PRN albuterol, HOB, IS parameters. - Hyponatremia -> Na 127, hospitalist ordered a Liter of NS => Renal was consulted by the hospitalist pending their recs, the patients Cortisol was 29.10 , UA Osmolality 216, UA Random Na 75 and Urine creatine <13. Sodium 135 yesterday, will DC fluid restriction and repeat sodium tomorrow.
[2017-04-15 13:20] VITALS: PULSE 102; RESP 18
[2017-04-15 18:55] VITALS: PULSE 102; RESP 20
[2017-04-15] MEDS: DiphenhydrAMINE 25 MG Capsule PO (20:14)
[2017-04-15 20:53] VITALS: BP 110/67; PULSE 104; RESP 18; TEMP 37.1; O2SAT 95
[2017-04-16] MEDS: Enoxaparin 40 MG/0.4 ML Syringe SC (05:22)
[2017-04-16 06:12] LABS: Anion Gap 9 (5-15); BUN 22 mg/dL (7-18); BUN/Creat Ratio 22.8 RATIO (10-20); Calcium,Total 8.5 mg/dL (8.5-10.1); Chloride 104 mmol/L (98-107); Creatinine, Serum 0.96 mg/dL (0.55-1.02); EST Glomerular Filtration Rate 62 mL/min (>60); Est Glom Filt Rate - Afr Amer 75 mL/min (>60); Estimated Creatinine Clearance 48.97 ml/min; Glucose 98 mg/dL (74-106); Potassium 3.8 mmol/L (3.5-5.1); Sodium Level 132 mmol/L (136-145)
[2017-04-16] MEDS: Budesonide Respules 0.5 MG/2 ML AMPUL.NEB. INHALATION ×2 (06:49→18:45)
[2017-04-16] MEDS: Ipratropium/Albuterol Sulfate 3 ML AMPUL.NEB INHALATION ×2 (06:49→18:45)
[2017-04-16 06:50] VITALS: PULSE 101; RESP 16
[2017-04-16 07:19] VITALS: BP 124/74; PULSE 105; RESP 18; TEMP 36.7; O2SAT 96
[2017-04-16] MEDS: Aspirin 81 MG TAB.CHEW PO (07:42)
[2017-04-16] MEDS: Lisinopril 40 MG Tablet PO (07:42)
[2017-04-16] MEDS: Atorvastatin Calcium 80 MG Tablet PO (07:42)
[2017-04-16] MEDS: amLODIPine 10 MG Tablet PO (07:42)
[2017-04-16] MEDS: Clopidogrel Bisulfate 75 MG Tablet PO (07:42)
--- NOTE | 2017-04-16 09:00 | NURSING ---
while working with therapy c/o slight lightheaded and dizziness. vitals obtained, hr 112, has been tachy. marycruz cruz notified.
--- NOTE | 2017-04-16 09:45 | NURSING ---
up to bathroom and back to chair, denies any dizziness or lightheadedness.
[2017-04-16 09:52] VITALS: BP 122/66; PULSE 112; RESP 18; O2SAT 93
--- NOTE | 2017-04-16 10:24 | PCM.PN.NEU ---
Subjective: Patient seen and examined. No new issues. Tolerating therapy. Will continue water restriction, Sodium level today is 132, will repeat level in the AM. - Physical Exam General: Alert, Oriented x3, Cooperative HEENT: Atraumatic, PERRLA, EOMI, Normocephalic Neck: Supple, No JVD, Negative Carotid Bruits Lungs: Clear to auscultation, Normal air movement Cardiovascular: Regular rate, No murmurs Abdomen: Bowel Sounds Present, Soft, Non Tender Extremities: No edema, Capillary Refill Less than 3 Seconds Skin: No rashes, No breakdown Musculoskeletal: No Tenderness to Palpation of Joints or Extremities Neurological: Cranial nerves II-XII grossly intact Psych/Mental Status: Normal Affect, Appropriate Vital Signs Temp Pulse Resp BP Pulse Ox 98.1 F 112 H 18 122/66 H 93 04/16/17 07:19 04/16/17 09:52 04/16/17 09:52 04/16/17 09:52 04/16/17 09:52 Oxygen Delivery Method Room Air Weight: 63.4 kg Body Mass Index (BMI) 25.2 Finger Stick Blood Glucose 90 Intake and Output for Last 24 Hours 04/14/17 04/15/17 04/16/17 23:59 23:59 23:59 Intake Total 1000 / 1000 1090 / 1090 200 / 200 Output Total 350 / 350 450 / 450 Balance 650 / 650 640 / 640 200 / 200 Laboratory Tests Past 24 Hrs 04/16/17 05:15 Sodium 132 L Potassium 3.8 Chloride 104 Carbon Dioxide 19.0 L Anion Gap 9 BUN 22 H Creatinine 0.96 Estim Creat Clear Calc 48.97 Est GFR (MDRD) Af Amer 75 Est GFR (MDRD) Non-Af 62 BUN/Creatinine Ratio 22.8 H Glucose 98 Calcium 8.5 Active Medications Acetaminophen (Tylenol) 650 mg PO Q6H PRN PRN PRN Reason: Mild Pain (0-3/10)/Headache Last Admin: 04/12/17 20:17 Dose: 650 mg Al Hydroxide/Mg Hydroxide (Mylanta Ii) 30 ml PO Q6H PRN PRN PRN Reason: Gastric burning Albuterol Sulfate (Ventolin Aerosols) 2.5 mg INHALATION Q2H PRN PRN PRN Reason: dyspnea, wheezing' Albuterol/Ipratropium (Duoneb) 3 ml INHALATION Q6HWA.RT SHEYLA Last Admin: 04/16/17 06:49 Dose: 3 ml Amlodipine Besylate (Norvasc) 10 mg PO DAILY [facility] Last Admin: 04/16/17 07:42 Dose: 10 mg Aspirin (Aspirin, Baby) 81 mg PO DAILY@0800 [facility] Last Admin: 04/16/17 07:42 Dose: 81 mg Atorvastatin Calcium (Lipitor) 80 mg PO DAILY [facility] Last Admin: 04/16/17 07:42 Dose: 80 mg Bisacodyl (Dulcolax) 10 mg RECTAL .PRN X 1 PRN PRN Reason: Constipation Budesonide (Pulmicort Aerosol) 0.5 mg INHALATION Q12H.RT [facility] Last Admin: 04/16/17 06:49 Dose: 0.5 mg Clopidogrel Bisulfate (Plavix) 75 mg PO DAILY [facility] Last Admin: 04/16/17 07:42 Dose: 75 mg Diphenhydramine HCl (Benadryl) 25 mg PO QHS PRN PRN PRN Reason: PRURITIS Last Admin: 04/15/17 20:14 Dose: 25 mg Emollient Ointment (Eucerin Intensive Repair) 1 applic TOPICAL 4X/DAY PRN PRN; Protocol PRN Reason: DRYNESS Enoxaparin Sodium (Lovenox) 40 mg SC DAILY@0600 [facility] Last Admin: 04/16/17 05:22 Dose: 40 mg Lisinopril (Zestril) 40 mg PO DAILY [facility] Last Admin: 04/16/17 07:42 Dose: 40 mg Lorazepam (Ativan) 0.5 mg PO QHS PRN PRN PRN Reason: Insomnia Magnesium Hydroxide (Milk Of Magnesia) 30 ml PO .PRN X 1 PRN PRN Reason: Constipation Sodium Chloride () 5 - 30 ml IV UD PRN PRN Reason: SALINE FLUSH Last Admin: 04/09/17 21:04 Dose: 10 ml Assessment/Plan Ability status post right thalamic infarct. Plan: - Physical therapy for gait and balance - Occupational Therapy for ADLs - Speech therapy - As needed analgesics - Bowel protocol - Stroke prevention -> ASA 81 mg daily and Plavix 75 mg daily. Dual AP for 1 month then switch to single AP and Lipitor 80mg - DVT Prophylaxis: SCDs, lovenox. - Will obtain a 30 day event monitor on discharge - Goal of BP <130/80, and A1C < 7% - Hypertension: BP above goal 130/80 still, increased HCTZ/Lisinopril the day prior and added norvasc, will monitor today and if pressures do not improve will increase ACEI further. - Tobacco Abuse: Encouraged cessation, inpatient consultation per RT, NR if desired. - Anxiety: Continue home Celexa regimen, Ativan PRN. - Chronic COPD: ATC duonebs, PRN albuterol, HOB, IS parameters. - Hyponatremia -> Na 127, hospitalist ordered a Liter of NS => Renal was consulted by the hospitalist pending their recs, the patients Cortisol was 29.10, UA Osmolality 216, UA Random Na 75 and Urine creatine <13. Sodium 135 yesterday, will DC fluid restriction and repeat sodium tomorrow. Repeat Sodium today is 132 will continue the water restriction and repeat Sodium level in AM.
--- NOTE | 2017-04-16 10:28 | PN.NEURO_ITS ---
Subjective: Patient seen and examined. No new issues. Tolerating therapy. Will continue water restriction, Sodium level today is 132, will repeat level in the AM. - Physical Exam General: Alert, Oriented x3, Cooperative HEENT: Atraumatic, PERRLA, EOMI, Normocephalic Neck: Supple, No JVD, Negative Carotid Bruits Lungs: Clear to auscultation, Normal air movement Cardiovascular: Regular rate, No murmurs Abdomen: Bowel Sounds Present, Soft, Non Tender Extremities: No edema, Capillary Refill Less than 3 Seconds Skin: No rashes, No breakdown Musculoskeletal: No Tenderness to Palpation of Joints or Extremities Neurological: Cranial nerves II-XII grossly intact Psych/Mental Status: Normal Affect, Appropriate Vital Signs Temp Pulse Resp BP Pulse Ox 98.1 F 112 H 18 122/66 H 93 04/16/17 07:19 04/16/17 09:52 04/16/17 09:52 04/16/17 09:52 04/16/17 09:52 Oxygen Delivery Method Room Air Weight: 63.4 kg Body Mass Index (BMI) 25.2 Finger Stick Blood Glucose 90 Intake and Output for Last 24 Hours 04/14/17 04/15/17 04/16/17 23:59 23:59 23:59 Intake Total 1000 / 1000 1090 / 1090 200 / 200 Output Total 350 / 350 450 / 450 Balance 650 / 650 640 / 640 200 / 200 Laboratory Tests Past 24 Hrs 04/16/17 05:15 Sodium 132 L Potassium 3.8 Chloride 104 Carbon Dioxide 19.0 L Anion Gap 9 BUN 22 H Creatinine 0.96 Estim Creat Clear Calc 48.97 Est GFR (MDRD) Af Amer 75 Est GFR (MDRD) Non-Af 62 BUN/Creatinine Ratio 22.8 H Glucose 98 Calcium 8.5 Active Medications Acetaminophen (Tylenol) 650 mg PO Q6H PRN PRN PRN Reason: Mild Pain (0-3/10)/Headache Last Admin: 04/12/17 20:17 Dose: 650 mg Al Hydroxide/Mg Hydroxide (Mylanta Ii) 30 ml PO Q6H PRN PRN PRN Reason: Gastric burning Albuterol Sulfate (Ventolin Aerosols) 2.5 mg INHALATION Q2H PRN PRN PRN Reason: dyspnea, wheezing' Albuterol/Ipratropium (Duoneb) 3 ml INHALATION Q6HWA.RT SHEYLA Last Admin: 04/16/17 06:49 Dose: 3 ml Amlodipine Besylate (Norvasc) 10 mg PO DAILY [facility] Last Admin: 04/16/17 07:42 Dose: 10 mg Aspirin (Aspirin, Baby) 81 mg PO DAILY@0800 [facility] Last Admin: 04/16/17 07:42 Dose: 81 mg Atorvastatin Calcium (Lipitor) 80 mg PO DAILY [facility] Last Admin: 04/16/17 07:42 Dose: 80 mg Bisacodyl (Dulcolax) 10 mg RECTAL .PRN X 1 PRN PRN Reason: Constipation Budesonide (Pulmicort Aerosol) 0.5 mg INHALATION Q12H.RT [facility] Last Admin: 04/16/17 06:49 Dose: 0.5 mg Clopidogrel Bisulfate (Plavix) 75 mg PO DAILY [facility] Last Admin: 04/16/17 07:42 Dose: 75 mg Diphenhydramine HCl (Benadryl) 25 mg PO QHS PRN PRN PRN Reason: PRURITIS Last Admin: 04/15/17 20:14 Dose: 25 mg Emollient Ointment (Eucerin Intensive Repair) 1 applic TOPICAL 4X/DAY PRN PRN; Protocol PRN Reason: DRYNESS Enoxaparin Sodium (Lovenox) 40 mg SC DAILY@0600 [facility] Last Admin: 04/16/17 05:22 Dose: 40 mg Lisinopril (Zestril) 40 mg PO DAILY [facility] Last Admin: 04/16/17 07:42 Dose: 40 mg Lorazepam (Ativan) 0.5 mg PO QHS PRN PRN PRN Reason: Insomnia Magnesium Hydroxide (Milk Of Magnesia) 30 ml PO .PRN X 1 PRN PRN Reason: Constipation Sodium Chloride () 5 - 30 ml IV UD PRN PRN Reason: SALINE FLUSH Last Admin: 04/09/17 21:04 Dose: 10 ml Assessment/Plan Ability status post right thalamic infarct. Plan: - Physical therapy for gait and balance - Occupational Therapy for ADLs - Speech therapy - As needed analgesics - Bowel protocol - Stroke prevention -> ASA 81 mg daily and Plavix 75 mg daily. Dual AP for 1 month then switch to single AP and Lipitor 80mg - DVT Prophylaxis: SCDs, lovenox. - Will obtain a 30 day event monitor on discharge - Goal of BP <130/80, and A1C < 7% - Hypertension: BP above goal 130/80 still, increased HCTZ/Lisinopril the day prior and added norvasc, will monitor today and if pressures do not improve will increase ACEI further. - Tobacco Abuse: Encouraged cessation, inpatient consultation per RT, NR if desired. - Anxiety: Continue home Celexa regimen, Ativan PRN. - Chronic COPD: ATC duonebs, PRN albuterol, HOB, IS parameters. - Hyponatremia -> Na 127, hospitalist ordered a Liter of NS => Renal was consulted by the hospitalist pending their recs, the patients Cortisol was 29.10 , UA Osmolality 216, UA Random Na 75 and Urine creatine <13. Sodium 135 yesterday, will DC fluid restriction and repeat sodium tomorrow. Repeat Sodium today is 132 will continue the water restriction and repeat Sodium level in AM.
[2017-04-16 12:08] VITALS: BMI 25.2
--- NOTE | 2017-04-16 15:20 | PCM.PN.HOSP ---
Subjective: Patient is admitted after acute stroke from the floor. On PT and OT. Left-sided weakness which has improved. Vitals/I&O's: Vital Signs Temp Pulse Resp BP Pulse Ox 98.1 F 112 H 18 122/66 H 93 04/16/17 07:19 04/16/17 09:52 04/16/17 09:52 04/16/17 09:52 04/16/17 09:52 Oxygen Delivery Method Room Air Weight: 139 lb 12.369 oz Body Mass Index (BMI) 25.2 Finger Stick Blood Glucose 90 Intake and Output for Last 24 Hours 04/14/17 04/15/17 04/16/17 23:59 23:59 23:59 Intake Total 1000 / 1000 1090 / 1090 320 / 320 Output Total 350 / 350 450 / 450 Balance 650 / 650 640 / 640 320 / 320 General: Alert, Oriented x3, Cooperative HEENT: Atraumatic, PERRLA, EOMI, Normocephalic Neck: Supple, No JVD, Negative Carotid Bruits Lungs: Clear to auscultation, Normal air movement, No rhonchi, No wheeze, No rales Cardiovascular: Regular rate, Regular Rhythm, Normal S1, Normal S2, No murmurs Abdomen: Bowel Sounds Present, Soft, Non Tender Extremities: No edema, Capillary Refill Less than 3 Seconds Skin: No rashes, No breakdown Musculoskeletal: No Tenderness to Palpation of Joints or Extremities Neurological: Cranial nerves II-XII grossly intact, Deep Tendon Reflexes 2+/4 and Symmetrical, - - Muscle strength 4/5 on left lower extremity, otherwise rest 5/5 at major joints. Psych/Mental Status: Normal Affect, Appropriate Laboratory Results 04/16/17 05:15: Sodium 132 L, Potassium 3.8, Chloride 104, Carbon Dioxide 19.0 L, Anion Gap 9, BUN 22 H, Creatinine 0.96, Estim Creat Clear Calc 48.97, Est GFR (MDRD) Af Amer 75, Est GFR (MDRD) Non-Af 62, BUN/Creatinine Ratio 22.8 H, Glucose 98, Calcium 8.5 Current Medications Acetaminophen (Tylenol) 650 mg PO Q6H PRN PRN PRN Reason: Mild Pain (0-3/10)/Headache Last Admin: 04/12/17 20:17 Dose: 650 mg Al Hydroxide/Mg Hydroxide (Mylanta Ii) 30 ml PO Q6H PRN PRN PRN Reason: Gastric burning Albuterol Sulfate (Ventolin Aerosols) 2.5 mg INHALATION Q2H PRN PRN PRN Reason: dyspnea, wheezing' Albuterol/Ipratropium (Duoneb) 3 ml INHALATION Q6HWA.RT [facility] Last Admin: 04/16/17 14:00 Dose: Not Given Amlodipine Besylate (Norvasc) 10 mg PO DAILY [facility] Last Admin: 04/16/17 07:42 Dose: 10 mg Aspirin (Aspirin, Baby) 81 mg PO DAILY@0800 [facility] Last Admin: 04/16/17 07:42 Dose: 81 mg Atorvastatin Calcium (Lipitor) 80 mg PO DAILY [facility] Last Admin: 04/16/17 07:42 Dose: 80 mg Bisacodyl (Dulcolax) 10 mg RECTAL .PRN X 1 PRN PRN Reason: Constipation Budesonide (Pulmicort Aerosol) 0.5 mg INHALATION Q12H.RT [facility] Last Admin: 04/16/17 06:49 Dose: 0.5 mg Clopidogrel Bisulfate (Plavix) 75 mg PO DAILY [facility] Last Admin: 04/16/17 07:42 Dose: 75 mg Diphenhydramine HCl (Benadryl) 25 mg PO QHS PRN PRN PRN Reason: PRURITIS Last Admin: 04/15/17 20:14 Dose: 25 mg Emollient Ointment (Eucerin Intensive Repair) 1 applic TOPICAL 4X/DAY PRN PRN; Protocol PRN Reason: DRYNESS Enoxaparin Sodium (Lovenox) 40 mg SC DAILY@0600 [facility] Last Admin: 04/16/17 05:22 Dose: 40 mg Lisinopril (Zestril) 40 mg PO DAILY [facility] Last Admin: 04/16/17 07:42 Dose: 40 mg Lorazepam (Ativan) 0.5 mg PO QHS PRN PRN PRN Reason: Insomnia Magnesium Hydroxide (Milk Of Magnesia) 30 ml PO .PRN X 1 PRN PRN Reason: Constipation Sodium Chloride () 5 - 30 ml IV UD PRN PRN Reason: SALINE FLUSH Last Admin: 04/09/17 21:04 Dose: 10 ml Assessment/Plan There is a 66-year-old female who is admitted for acute rehab after acute right thalamic ischemic infarct. 1. Left sided weakness 2/2 recent acute infarct right thalamic and posterior limb of the right internal capsule. Therapy per neuro and rehab team. On asa, lipitor, plavix. Patient will need 30 day event monitor after discharge. 2. 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 Latest sodium is 132. Repeat sodium tomorrow morning. 3. HTN - stable. 4. Tobacco abuse - encouraged cessation given recent stroke. 5. COPD - stable, lungs clear. 6. Diarrhea - resolved. 7. Anxiety - no SSRI withdrawal symptoms. DVT prophylaxis: On rehab and active ambulation Code Visit Inpatient E&M: 96847 Subs Hosp L2
--- NOTE | 2017-04-16 16:11 | PCM.PN.REN ---
Subjective: no further nausea, diarrhea. Left sided weakness improving with therapy - Physical Exam General: Alert, Oriented x3 Lungs: Clear to auscultation Cardiovascular: Regular rate Vital Signs Temp Pulse Resp BP Pulse Ox 98.1 F 112 H 18 122/66 H 93 04/16/17 07:19 04/16/17 09:52 04/16/17 09:52 04/16/17 09:52 04/16/17 09:52 Oxygen Delivery Method Room Air Weight: 63.4 kg Body Mass Index (BMI) 25.2 Finger Stick Blood Glucose 90 Intake and Output for Last 24 Hours 04/14/17 04/15/17 04/16/17 23:59 23:59 23:59 Intake Total 1000 / 1000 1090 / 1090 320 / 320 Output Total 350 / 350 450 / 450 Balance 650 / 650 640 / 640 320 / 320 Laboratory Tests Past 24 Hrs 04/16/17 05:15 Sodium 132 L Potassium 3.8 Chloride 104 Carbon Dioxide 19.0 L Anion Gap 9 BUN 22 H Creatinine 0.96 Estim Creat Clear Calc 48.97 Est GFR (MDRD) Af Amer 75 Est GFR (MDRD) Non-Af 62 BUN/Creatinine Ratio 22.8 H Glucose 98 Calcium 8.5 Assessment/Plan 1. Hyponatremia due to recent use of HCTZ, SIADH with recent [employer] event. Sodium stable at 132. Continue fluid restriction until sodium normalizes 2. Hypertension stable 3. hypokalemia due to thiazide diuretic resolved 4. 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 5. diarrhea resolved
[2017-04-16 18:45] VITALS: PULSE 105; RESP 16; O2SAT 98
[2017-04-16 20:32] VITALS: BP 112/70; PULSE 100; RESP 18; TEMP 37.1; O2SAT 97
[2017-04-16] MEDS: DiphenhydrAMINE 25 MG Capsule PO (20:46)
[2017-04-16] MEDS: Acetaminophen 325 MG Tablet 650 MG PO (20:46)
[2017-04-16 20:51] VITALS: BMI 25.2
[2017-04-17] MEDS: Enoxaparin 40 MG/0.4 ML Syringe SC (05:38)
[2017-04-17 05:39] LABS: Sodium Level 132 mmol/L (136-145)
[2017-04-17 06:45] VITALS: PULSE 106; RESP 20; O2SAT 97
[2017-04-17] MEDS: Budesonide Respules 0.5 MG/2 ML AMPUL.NEB. INHALATION ×2 (06:45→19:40)
[2017-04-17] MEDS: Ipratropium/Albuterol Sulfate 3 ML AMPUL.NEB INHALATION ×3 (06:45→19:40)
[2017-04-17 07:50] VITALS: BP 117/65; PULSE 106; RESP 17; TEMP 37.3; O2SAT 99
[2017-04-17] MEDS: amLODIPine 10 MG Tablet PO (08:02)
[2017-04-17] MEDS: Clopidogrel Bisulfate 75 MG Tablet PO (08:02)
[2017-04-17] MEDS: Lisinopril 40 MG Tablet PO (08:02)
[2017-04-17] MEDS: Aspirin 81 MG TAB.CHEW PO (08:02)
[2017-04-17] MEDS: Atorvastatin Calcium 80 MG Tablet PO (08:02)
[2017-04-17 08:14] VITALS: PULSE 106
[2017-04-17 12:11] VITALS: BMI 25.2
--- NOTE | 2017-04-17 13:20 | PCM.PN.NEU ---
Subjective: Patient seen and examined. No acute events overnight. Tolerating therapy. Patient feels she is doing well and is anxious to go home. Her Sodium level remains low is 132, will continue the fluid restriction of 1200cc/day. Tolerating regular diet,no GI/ issues. - Physical Exam General: Alert, Oriented x3, Cooperative HEENT: Atraumatic, PERRLA, EOMI, Normocephalic Neck: Supple, No JVD, Negative Carotid Bruits Lungs: Clear to auscultation, Normal air movement Cardiovascular: Regular rate, No murmurs Abdomen: Bowel Sounds Present, Soft, Non Tender Extremities: No edema, Capillary Refill Less than 3 Seconds Skin: No rashes, No breakdown Musculoskeletal: No Tenderness to Palpation of Joints or Extremities Neurological: Cranial nerves II-XII grossly intact Psych/Mental Status: Normal Affect, Appropriate Vital Signs Temp Pulse Resp BP Pulse Ox 99.1 F 106 H 17 117/65 99 04/17/17 07:50 04/17/17 08:14 04/17/17 07:50 04/17/17 07:50 04/17/17 07:50 Oxygen Delivery Method Room Air Weight: 63.4 kg Body Mass Index (BMI) 25.2 Finger Stick Blood Glucose 90 Intake and Output for Last 24 Hours 04/15/17 04/16/17 04/17/17 23:59 23:59 23:59 Intake Total 1090 / 1090 1220 / 1220 60 / 60 Output Total 450 / 450 Balance 640 / 640 1220 / 1220 60 / 60 Laboratory Tests Past 24 Hrs 04/17/17 05:10 Sodium 132 L Active Medications Acetaminophen (Tylenol) 650 mg PO Q6H PRN PRN PRN Reason: Mild Pain (0-3/10)/Headache Last Admin: 04/16/17 20:46 Dose: 650 mg Al Hydroxide/Mg Hydroxide (Mylanta Ii) 30 ml PO Q6H PRN PRN PRN Reason: Gastric burning Albuterol Sulfate (Ventolin Aerosols) 2.5 mg INHALATION Q2H PRN PRN PRN Reason: dyspnea, wheezing' Albuterol/Ipratropium (Duoneb) 3 ml INHALATION Q6HWA.RT [facility] Last Admin: 04/17/17 06:45 Dose: 3 ml Amlodipine Besylate (Norvasc) 10 mg PO DAILY [facility] Last Admin: 04/17/17 08:02 Dose: 10 mg Aspirin (Aspirin, Baby) 81 mg PO DAILY@0800 [facility] Last Admin: 04/17/17 08:02 Dose: 81 mg Atorvastatin Calcium (Lipitor) 80 mg PO DAILY [facility] Last Admin: 04/17/17 08:02 Dose: 80 mg Bisacodyl (Dulcolax) 10 mg RECTAL .PRN X 1 PRN PRN Reason: Constipation Budesonide (Pulmicort Aerosol) 0.5 mg INHALATION Q12H.RT [facility] Last Admin: 04/17/17 06:45 Dose: 0.5 mg Clopidogrel Bisulfate (Plavix) 75 mg PO DAILY [facility] Last Admin: 04/17/17 08:02 Dose: 75 mg Diphenhydramine HCl (Benadryl) 25 mg PO QHS PRN PRN PRN Reason: PRURITIS Last Admin: 04/16/17 20:46 Dose: 25 mg Emollient Ointment (Eucerin Intensive Repair) 1 applic TOPICAL 4X/DAY PRN PRN; Protocol PRN Reason: DRYNESS Enoxaparin Sodium (Lovenox) 40 mg SC DAILY@0600 [facility] Last Admin: 04/17/17 05:38 Dose: 40 mg Lisinopril (Zestril) 40 mg PO DAILY [facility] Last Admin: 04/17/17 08:02 Dose: 40 mg Lorazepam (Ativan) 0.5 mg PO QHS PRN PRN PRN Reason: Insomnia Magnesium Hydroxide (Milk Of Magnesia) 30 ml PO .PRN X 1 PRN PRN Reason: Constipation Sodium Chloride () 5 - 30 ml IV UD PRN PRN Reason: SALINE FLUSH Last Admin: 04/09/17 21:04 Dose: 10 ml Assessment/Plan Ability status post right thalamic infarct. Plan: - Physical therapy for gait and balance - Occupational Therapy for ADLs - Speech therapy - As needed analgesics - Bowel protocol - Stroke prevention -> ASA 81 mg daily and Plavix 75 mg daily. Dual AP for 1 month then switch to single AP and Lipitor 80mg - DVT Prophylaxis: SCDs, lovenox. - Will obtain a 30 day event monitor on discharge - Goal of BP <130/80, and A1C < 7% - Hypertension: BP above goal 130/80 still, increased HCTZ/Lisinopril the day prior and added norvasc, will monitor today and if pressures do not improve will increase ACEI further. - Tobacco Abuse: Encouraged cessation, inpatient consultation per RT, NR if desired. - Anxiety: Continue home Celexa regimen, Ativan PRN. - Chronic COPD: ATC duonebs, PRN albuterol, HOB, IS parameters. - Hyponatremia -> Na 127, hospitalist ordered a Liter of NS => Renal was consulted by the hospitalist pending their recs, the patients Cortisol was 29.10, UA Osmolality 216, UA Random Na 75 and Urine creatine <13. Sodium 135 yesterday, will DC fluid restriction and repeat sodium tomorrow. Repeat Sodium today is 132 will continue the water restriction and repeat Sodium level in AM.
--- NOTE | 2017-04-17 13:23 | PN.NEURO_ITS ---
Subjective: Patient seen and examined. No acute events overnight. Tolerating therapy. Patient feels she is doing well and is anxious to go home. Her Sodium level remains low is 132, will continue the fluid restriction of 1200cc/day. Tolerating regular diet,no GI/ issues. - Physical Exam General: Alert, Oriented x3, Cooperative HEENT: Atraumatic, PERRLA, EOMI, Normocephalic Neck: Supple, No JVD, Negative Carotid Bruits Lungs: Clear to auscultation, Normal air movement Cardiovascular: Regular rate, No murmurs Abdomen: Bowel Sounds Present, Soft, Non Tender Extremities: No edema, Capillary Refill Less than 3 Seconds Skin: No rashes, No breakdown Musculoskeletal: No Tenderness to Palpation of Joints or Extremities Neurological: Cranial nerves II-XII grossly intact Psych/Mental Status: Normal Affect, Appropriate Vital Signs Temp Pulse Resp BP Pulse Ox 99.1 F 106 H 17 117/65 99 04/17/17 07:50 04/17/17 08:14 04/17/17 07:50 04/17/17 07:50 04/17/17 07:50 Oxygen Delivery Method Room Air Weight: 63.4 kg Body Mass Index (BMI) 25.2 Finger Stick Blood Glucose 90 Intake and Output for Last 24 Hours 04/15/17 04/16/17 04/17/17 23:59 23:59 23:59 Intake Total 1090 / 1090 1220 / 1220 60 / 60 Output Total 450 / 450 Balance 640 / 640 1220 / 1220 60 / 60 Laboratory Tests Past 24 Hrs 04/17/17 05:10 Sodium 132 L Active Medications Acetaminophen (Tylenol) 650 mg PO Q6H PRN PRN PRN Reason: Mild Pain (0-3/10)/Headache Last Admin: 04/16/17 20:46 Dose: 650 mg Al Hydroxide/Mg Hydroxide (Mylanta Ii) 30 ml PO Q6H PRN PRN PRN Reason: Gastric burning Albuterol Sulfate (Ventolin Aerosols) 2.5 mg INHALATION Q2H PRN PRN PRN Reason: dyspnea, wheezing' Albuterol/Ipratropium (Duoneb) 3 ml INHALATION Q6HWA.RT [facility] Last Admin: 04/17/17 06:45 Dose: 3 ml Amlodipine Besylate (Norvasc) 10 mg PO DAILY [facility] Last Admin: 04/17/17 08:02 Dose: 10 mg Aspirin (Aspirin, Baby) 81 mg PO DAILY@0800 [facility] Last Admin: 04/17/17 08:02 Dose: 81 mg Atorvastatin Calcium (Lipitor) 80 mg PO DAILY [facility] Last Admin: 04/17/17 08:02 Dose: 80 mg Bisacodyl (Dulcolax) 10 mg RECTAL .PRN X 1 PRN PRN Reason: Constipation Budesonide (Pulmicort Aerosol) 0.5 mg INHALATION Q12H.RT [facility] Last Admin: 04/17/17 06:45 Dose: 0.5 mg Clopidogrel Bisulfate (Plavix) 75 mg PO DAILY [facility] Last Admin: 04/17/17 08:02 Dose: 75 mg Diphenhydramine HCl (Benadryl) 25 mg PO QHS PRN PRN PRN Reason: PRURITIS Last Admin: 04/16/17 20:46 Dose: 25 mg Emollient Ointment (Eucerin Intensive Repair) 1 applic TOPICAL 4X/DAY PRN PRN; Protocol PRN Reason: DRYNESS Enoxaparin Sodium (Lovenox) 40 mg SC DAILY@0600 [facility] Last Admin: 04/17/17 05:38 Dose: 40 mg Lisinopril (Zestril) 40 mg PO DAILY [facility] Last Admin: 04/17/17 08:02 Dose: 40 mg Lorazepam (Ativan) 0.5 mg PO QHS PRN PRN PRN Reason: Insomnia Magnesium Hydroxide (Milk Of Magnesia) 30 ml PO .PRN X 1 PRN PRN Reason: Constipation Sodium Chloride () 5 - 30 ml IV UD PRN PRN Reason: SALINE FLUSH Last Admin: 04/09/17 21:04 Dose: 10 ml Assessment/Plan Ability status post right thalamic infarct. Plan: - Physical therapy for gait and balance - Occupational Therapy for ADLs - Speech therapy - As needed analgesics - Bowel protocol - Stroke prevention -> ASA 81 mg daily and Plavix 75 mg daily. Dual AP for 1 month then switch to single AP and Lipitor 80mg - DVT Prophylaxis: SCDs, lovenox. - Will obtain a 30 day event monitor on discharge - Goal of BP <130/80, and A1C < 7% - Hypertension: BP above goal 130/80 still, increased HCTZ/Lisinopril the day prior and added norvasc, will monitor today and if pressures do not improve will increase ACEI further. - Tobacco Abuse: Encouraged cessation, inpatient consultation per RT, NR if desired. - Anxiety: Continue home Celexa regimen, Ativan PRN. - Chronic COPD: ATC duonebs, PRN albuterol, HOB, IS parameters. - Hyponatremia -> Na 127, hospitalist ordered a Liter of NS => Renal was consulted by the hospitalist pending their recs, the patients Cortisol was 29.10 , UA Osmolality 216, UA Random Na 75 and Urine creatine <13. Sodium 135 yesterday, will DC fluid restriction and repeat sodium tomorrow. Repeat Sodium today is 132 will continue the water restriction and repeat Sodium level in AM.
[2017-04-17 14:13] VITALS: PULSE 110; RESP 16; O2SAT 98
[2017-04-17] MEDS: Acetaminophen 325 MG Tablet 650 MG PO ×2 (15:01→21:01)
[2017-04-17 19:40] VITALS: PULSE 92; RESP 16
[2017-04-17 19:57] VITALS: BP 118/61; PULSE 97; RESP 20; TEMP 36.9; O2SAT 99
[2017-04-17] MEDS: DiphenhydrAMINE 25 MG Capsule PO (20:26)
[2017-04-18 04:58] VITALS: BMI 25.2
[2017-04-18] MEDS: Enoxaparin 40 MG/0.4 ML Syringe SC (05:00)
[2017-04-18 07:24] VITALS: BP 104/52; PULSE 102; RESP 18; TEMP 36.3; O2SAT 96
[2017-04-18 07:50] VITALS: PULSE 103; RESP 14; O2SAT 96
[2017-04-18] MEDS: Budesonide Respules 0.5 MG/2 ML AMPUL.NEB. INHALATION ×2 (07:50→19:20)
[2017-04-18] MEDS: Ipratropium/Albuterol Sulfate 3 ML AMPUL.NEB INHALATION ×2 (07:50→19:20)
[2017-04-18] MEDS: Clopidogrel Bisulfate 75 MG Tablet PO (07:51)
[2017-04-18] MEDS: Aspirin 81 MG TAB.CHEW PO (07:51)
[2017-04-18] MEDS: Atorvastatin Calcium 80 MG Tablet PO (07:51)
[2017-04-18] MEDS: amLODIPine 10 MG Tablet PO (07:51)
[2017-04-18] MEDS: Lisinopril 40 MG Tablet PO (07:52)
[2017-04-18 08:01] VITALS: BMI 25.2
--- NOTE | 2017-04-18 09:39 | PCM.PN.NEU ---
Subjective: Patient seen during Physical therapy session. Tolerating therapy. Denies any shortness of breath or chest pains. During therapy tried an AFO splint, the patient stated her foot and ankle felt more stable, and the device was comfortable, will have one customer fitted for a better fit and comfort. Her Sodium level continues to be low at 132, will start her on Sodium Chloride tablets x 7 days. - Physical Exam General: Alert, Oriented x3, Cooperative HEENT: Atraumatic, PERRLA, EOMI, Normocephalic Neck: Supple, No JVD, Negative Carotid Bruits Lungs: Clear to auscultation, Normal air movement Cardiovascular: Regular rate, No murmurs Abdomen: Bowel Sounds Present, Soft, Non Tender Extremities: No edema, Capillary Refill Less than 3 Seconds Skin: No rashes, No breakdown Musculoskeletal: No Tenderness to Palpation of Joints or Extremities Neurological: Cranial nerves II-XII grossly intact Psych/Mental Status: Normal Affect, Appropriate Vital Signs Temp Pulse Resp BP Pulse Ox 97.4 F L 103 H 14 104/52 L 96 04/18/17 07:24 04/18/17 07:50 04/18/17 07:50 04/18/17 07:24 04/18/17 07:50 Oxygen Delivery Method Room Air Weight: 62.7 kg Body Mass Index (BMI) 25.2 Finger Stick Blood Glucose 90 Intake and Output for Last 24 Hours 04/16/17 04/17/17 04/18/17 23:59 23:59 23:59 Intake Total 1220 / 1220 680 / 680 Output Total 400 / 400 200 / 200 Balance 1220 / 1220 280 / 280 -200 / -200 Active Medications Acetaminophen (Tylenol) 650 mg PO Q6H PRN PRN PRN Reason: Mild Pain (0-3/10)/Headache Last Admin: 04/17/17 21:01 Dose: 650 mg Al Hydroxide/Mg Hydroxide (Mylanta Ii) 30 ml PO Q6H PRN PRN PRN Reason: Gastric burning Albuterol Sulfate (Ventolin Aerosols) 2.5 mg INHALATION Q2H PRN PRN PRN Reason: dyspnea, wheezing' Albuterol/Ipratropium (Duoneb) 3 ml INHALATION Q6HWA.RT [facility] Last Admin: 04/18/17 07:50 Dose: 3 ml Amlodipine Besylate (Norvasc) 10 mg PO DAILY [facility] Last Admin: 04/18/17 07:51 Dose: 10 mg Aspirin (Aspirin, Baby) 81 mg PO DAILY@0800 [facility] Last Admin: 04/18/17 07:51 Dose: 81 mg Atorvastatin Calcium (Lipitor) 80 mg PO DAILY [facility] Last Admin: 04/18/17 07:51 Dose: 80 mg Bisacodyl (Dulcolax) 10 mg RECTAL .PRN X 1 PRN PRN Reason: Constipation Budesonide (Pulmicort Aerosol) 0.5 mg INHALATION Q12H.RT [facility] Last Admin: 04/18/17 07:50 Dose: 0.5 mg Clopidogrel Bisulfate (Plavix) 75 mg PO DAILY [facility] Last Admin: 04/18/17 07:51 Dose: 75 mg Diphenhydramine HCl (Benadryl) 25 mg PO QHS PRN PRN PRN Reason: PRURITIS Last Admin: 04/17/17 20:26 Dose: 25 mg Emollient Ointment (Eucerin Intensive Repair) 1 applic TOPICAL 4X/DAY PRN PRN; Protocol PRN Reason: DRYNESS Enoxaparin Sodium (Lovenox) 40 mg SC DAILY@0600 [facility] Last Admin: 04/18/17 05:00 Dose: 40 mg Lisinopril (Zestril) 40 mg PO DAILY [facility] Last Admin: 04/18/17 07:52 Dose: 40 mg Lorazepam (Ativan) 0.5 mg PO QHS PRN PRN PRN Reason: Insomnia Magnesium Hydroxide (Milk Of Magnesia) 30 ml PO .PRN X 1 PRN PRN Reason: Constipation Sodium Chloride () 5 - 30 ml IV UD PRN PRN Reason: SALINE FLUSH Last Admin: 04/09/17 21:04 Dose: 10 ml Assessment/Plan Ability status post right thalamic infarct. Plan: - Physical therapy for gait and balance - Occupational Therapy for ADLs - Speech therapy - As needed analgesics - Bowel protocol - Stroke prevention -> ASA 81 mg daily and Plavix 75 mg daily. Dual AP for 1 month then switch to single AP and Lipitor 80mg - DVT Prophylaxis: SCDs, lovenox. - Will obtain a 30 day event monitor on discharge - Goal of BP <130/80, and A1C < 7% - Hypertension: BP above goal 130/80 still, increased HCTZ/Lisinopril the day prior and added norvasc, will monitor today and if pressures do not improve will increase ACEI further. - Tobacco Abuse: Encouraged cessation, inpatient consultation per RT, NR if desired. - Anxiety: Continue home Celexa regimen, Ativan PRN. - Chronic COPD: ATC duonebs, PRN albuterol, HOB, IS parameters. - Hyponatremia -> Na 127, hospitalist ordered a Liter of NS => Renal was consulted by the hospitalist pending their recs, the patients Cortisol was 29.10, UA Osmolality 216, UA Random Na 75 and Urine creatine <13. Sodium 135 yesterday, will DC fluid restriction and repeat sodium tomorrow. Repeat Sodium today is 132 will continue the water restriction and repeat Sodium level in AM.
--- NOTE | 2017-04-18 09:45 | PN.NEURO_ITS ---
Subjective: Patient seen during Physical therapy session. Tolerating therapy. Denies any shortness of breath or chest pains. During therapy tried an AFO splint, the patient stated her foot and ankle felt more stable, and the device was comfortable, will have one customer fitted for a better fit and comfort. Her Sodium level continues to be low at 132, will start her on Sodium Chloride tablets x 7 days. - Physical Exam General: Alert, Oriented x3, Cooperative HEENT: Atraumatic, PERRLA, EOMI, Normocephalic Neck: Supple, No JVD, Negative Carotid Bruits Lungs: Clear to auscultation, Normal air movement Cardiovascular: Regular rate, No murmurs Abdomen: Bowel Sounds Present, Soft, Non Tender Extremities: No edema, Capillary Refill Less than 3 Seconds Skin: No rashes, No breakdown Musculoskeletal: No Tenderness to Palpation of Joints or Extremities Neurological: Cranial nerves II-XII grossly intact Psych/Mental Status: Normal Affect, Appropriate Vital Signs Temp Pulse Resp BP Pulse Ox 97.4 F L 103 H 14 104/52 L 96 04/18/17 07:24 04/18/17 07:50 04/18/17 07:50 04/18/17 07:24 04/18/17 07:50 Oxygen Delivery Method Room Air Weight: 62.7 kg Body Mass Index (BMI) 25.2 Finger Stick Blood Glucose 90 Intake and Output for Last 24 Hours 04/16/17 04/17/17 04/18/17 23:59 23:59 23:59 Intake Total 1220 / 1220 680 / 680 Output Total 400 / 400 200 / 200 Balance 1220 / 1220 280 / 280 -200 / -200 Active Medications Acetaminophen (Tylenol) 650 mg PO Q6H PRN PRN PRN Reason: Mild Pain (0-3/10)/Headache Last Admin: 04/17/17 21:01 Dose: 650 mg Al Hydroxide/Mg Hydroxide (Mylanta Ii) 30 ml PO Q6H PRN PRN PRN Reason: Gastric burning Albuterol Sulfate (Ventolin Aerosols) 2.5 mg INHALATION Q2H PRN PRN PRN Reason: dyspnea, wheezing' Albuterol/Ipratropium (Duoneb) 3 ml INHALATION Q6HWA.RT [facility] Last Admin: 04/18/17 07:50 Dose: 3 ml Amlodipine Besylate (Norvasc) 10 mg PO DAILY [facility] Last Admin: 04/18/17 07:51 Dose: 10 mg Aspirin (Aspirin, Baby) 81 mg PO DAILY@0800 [facility] Last Admin: 04/18/17 07:51 Dose: 81 mg Atorvastatin Calcium (Lipitor) 80 mg PO DAILY [facility] Last Admin: 04/18/17 07:51 Dose: 80 mg Bisacodyl (Dulcolax) 10 mg RECTAL .PRN X 1 PRN PRN Reason: Constipation Budesonide (Pulmicort Aerosol) 0.5 mg INHALATION Q12H.RT [facility] Last Admin: 04/18/17 07:50 Dose: 0.5 mg Clopidogrel Bisulfate (Plavix) 75 mg PO DAILY [facility] Last Admin: 04/18/17 07:51 Dose: 75 mg Diphenhydramine HCl (Benadryl) 25 mg PO QHS PRN PRN PRN Reason: PRURITIS Last Admin: 04/17/17 20:26 Dose: 25 mg Emollient Ointment (Eucerin Intensive Repair) 1 applic TOPICAL 4X/DAY PRN PRN; Protocol PRN Reason: DRYNESS Enoxaparin Sodium (Lovenox) 40 mg SC DAILY@0600 [facility] Last Admin: 04/18/17 05:00 Dose: 40 mg Lisinopril (Zestril) 40 mg PO DAILY [facility] Last Admin: 04/18/17 07:52 Dose: 40 mg Lorazepam (Ativan) 0.5 mg PO QHS PRN PRN PRN Reason: Insomnia Magnesium Hydroxide (Milk Of Magnesia) 30 ml PO .PRN X 1 PRN PRN Reason: Constipation Sodium Chloride () 5 - 30 ml IV UD PRN PRN Reason: SALINE FLUSH Last Admin: 04/09/17 21:04 Dose: 10 ml Assessment/Plan Ability status post right thalamic infarct. Plan: - Physical therapy for gait and balance - Occupational Therapy for ADLs - Speech therapy - As needed analgesics - Bowel protocol - Stroke prevention -> ASA 81 mg daily and Plavix 75 mg daily. Dual AP for 1 month then switch to single AP and Lipitor 80mg - DVT Prophylaxis: SCDs, lovenox. - Will obtain a 30 day event monitor on discharge - Goal of BP <130/80, and A1C < 7% - Hypertension: BP above goal 130/80 still, increased HCTZ/Lisinopril the day prior and added norvasc, will monitor today and if pressures do not improve will increase ACEI further. - Tobacco Abuse: Encouraged cessation, inpatient consultation per RT, NR if desired. - Anxiety: Continue home Celexa regimen, Ativan PRN. - Chronic COPD: ATC duonebs, PRN albuterol, HOB, IS parameters. - Hyponatremia -> Na 127, hospitalist ordered a Liter of NS => Renal was consulted by the hospitalist pending their recs, the patients Cortisol was 29.10 , UA Osmolality 216, UA Random Na 75 and Urine creatine <13. Sodium 135 yesterday, will DC fluid restriction and repeat sodium tomorrow. Repeat Sodium today is 132 will continue the water restriction and repeat Sodium level in AM.
[2017-04-18 13:15] VITALS: PULSE 112; RESP 14
[2017-04-18 13:40] LABS: ALB/GLOB Ratio 0.7 RATIO (0.9-2.4); AST(SGOT) 19 U/L (15-37); Alanine Aminotransfer ALT/SGPT 28 U/L (13-56); Albumin, Serum 3.2 g/dL (3.2-5.0); Alkaline Phosphatase 79 U/L (45-117); Anion Gap 12 (5-15); BUN 29 mg/dL (7-18); BUN/Creat Ratio 24.8 RATIO (10-20); Calcium,Total 8.6 mg/dL (8.5-10.1); Chloride 103 mmol/L (98-107); Creatinine, Serum 1.17 mg/dL (0.55-1.02); EST Glomerular Filtration Rate 49 mL/min (>60); Est Glom Filt Rate - Afr Amer 60 mL/min (>60); Estimated Creatinine Clearance 40.18 ml/min; Globulin 4.5 g/dL (2.2-4.2); Glucose 89 mg/dL (74-106); Potassium 3.9 mmol/L (3.5-5.1); Protein, Total 7.7 g/dL (6.4-8.2); Sodium Level 132 mmol/L (136-145)
[2017-04-18] MEDS: SODIUM CHLORIDE 1 GM TABLET PO ×2 (15:15→21:31)
--- NOTE | 2017-04-18 15:30 | PCM.PN.HOSP ---
Subjective: Seen and examined. Patient has hyponatremia, sodium 132. On sodium tablet and fluid restriction. Seen by Dr. Mariano. Vitals/I&O's: Vital Signs Temp Pulse Resp BP Pulse Ox 97.4 F L 112 H 14 104/52 L 96 04/18/17 07:24 04/18/17 13:15 04/18/17 13:15 04/18/17 07:24 04/18/17 07:50 Oxygen Delivery Method Room Air Weight: 138 lb 3.677 oz Body Mass Index (BMI) 25.2 Finger Stick Blood Glucose 90 Intake and Output for Last 24 Hours 04/16/17 04/17/17 04/18/17 23:59 23:59 23:59 Intake Total 1220 / 1220 680 / 680 600 / 600 Output Total 400 / 400 200 / 200 Balance 1220 / 1220 280 / 280 400 / 400 General: Alert, Oriented x3, Cooperative HEENT: Atraumatic, PERRLA, EOMI, Normocephalic Neck: Supple, No JVD, Negative Carotid Bruits Lungs: Clear to auscultation, Normal air movement, No rhonchi, No wheeze, No rales Cardiovascular: Regular rate, Regular Rhythm, Normal S1, Normal S2, No murmurs Abdomen: Bowel Sounds Present, Soft, Non Tender Extremities: No edema, Capillary Refill Less than 3 Seconds Skin: No rashes, No breakdown Musculoskeletal: No Tenderness to Palpation of Joints or Extremities, Arthritic Changes, Muscle Wasting Neurological: Cranial nerves II-XII grossly intact, - - Mild weakness in left lower leg. Left foot drop. Psych/Mental Status: Normal Affect, Appropriate Laboratory Results 04/18/17 12:40: Sodium 132 L, Potassium 3.9, Chloride 103, Carbon Dioxide 17.0 L, Anion Gap 12, BUN 29 H, Creatinine 1.17 H, Estim Creat Clear Calc 40.18, Est GFR (MDRD) Af Amer 60, Est GFR (MDRD) Non-Af 49 L, BUN/Creatinine Ratio 24.8 H, Glucose 89, Calcium 8.6, Total Bilirubin 0.50, AST 19, ALT 28, Alkaline Phosphatase 79, Total Protein 7.7, Albumin 3.2, Globulin 4.5 H, Albumin/Globulin Ratio 0.7 L Current Medications Acetaminophen (Tylenol) 650 mg PO Q6H PRN PRN PRN Reason: Mild Pain (0-3/10)/Headache Last Admin: 04/17/17 21:01 Dose: 650 mg Al Hydroxide/Mg Hydroxide (Mylanta Ii) 30 ml PO Q6H PRN PRN PRN Reason: Gastric burning Albuterol Sulfate (Ventolin Aerosols) 2.5 mg INHALATION Q2H PRN PRN PRN Reason: dyspnea, wheezing' Albuterol/Ipratropium (Duoneb) 3 ml INHALATION Q6HWA.RT [facility] Last Admin: 04/18/17 07:50 Dose: 3 ml Amlodipine Besylate (Norvasc) 10 mg PO DAILY [facility] Last Admin: 04/18/17 07:51 Dose: 10 mg Aspirin (Aspirin, Baby) 81 mg PO DAILY@0800 [facility] Last Admin: 04/18/17 07:51 Dose: 81 mg Atorvastatin Calcium (Lipitor) 80 mg PO DAILY [facility] Last Admin: 04/18/17 07:51 Dose: 80 mg Bisacodyl (Dulcolax) 10 mg RECTAL .PRN X 1 PRN PRN Reason: Constipation Budesonide (Pulmicort Aerosol) 0.5 mg INHALATION Q12H.RT [facility] Last Admin: 04/18/17 07:50 Dose: 0.5 mg Clopidogrel Bisulfate (Plavix) 75 mg PO DAILY [facility] Last Admin: 04/18/17 07:51 Dose: 75 mg Diphenhydramine HCl (Benadryl) 25 mg PO QHS PRN PRN PRN Reason: PRURITIS Last Admin: 04/17/17 20:26 Dose: 25 mg Emollient Ointment (Eucerin Intensive Repair) 1 applic TOPICAL 4X/DAY PRN PRN; Protocol PRN Reason: DRYNESS Enoxaparin Sodium (Lovenox) 40 mg SC DAILY@0600 [facility] Last Admin: 04/18/17 05:00 Dose: 40 mg Lisinopril (Zestril) 40 mg PO DAILY [facility] Last Admin: 04/18/17 07:52 Dose: 40 mg Lorazepam (Ativan) 0.5 mg PO QHS PRN PRN PRN Reason: Insomnia Magnesium Hydroxide (Milk Of Magnesia) 30 ml PO .PRN X 1 PRN PRN Reason: Constipation Sodium Chloride () 5 - 30 ml IV UD PRN PRN Reason: SALINE FLUSH Last Admin: 04/09/17 21:04 Dose: 10 ml Sodium Chloride (Sodium Chloride) 1 gm PO TID SHEYLA Stop: 04/25/17 06:01 Last Admin: 04/18/17 15:15 Dose: 1 gm Assessment/Plan There is a 66-year-old female who is admitted for acute rehab after acute right thalamic ischemic infarct. 1. Left sided weakness 2/2 recent acute infarct right thalamic and posterior limb of the right internal capsule. Therapy per neuro and rehab team. On asa, lipitor, plavix. Patient will need 30 day event monitor after discharge. Patient is strength has improved. 2. 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 Sodium is stable at 132 for last 3 -4 days. On sodium tablet 1 g 3 times daily. 3. HTN - stable. 4. Tobacco abuse - encouraged cessation given recent stroke. 5. COPD - stable, lungs clear. 6. Diarrhea - resolved. 7. Anxiety - no SSRI withdrawal symptoms. DVT prophylaxis: On rehab and active ambulation The patient is scheduled for discharge tomorrow. HCTZ has been discontinued. 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 Code Visit Inpatient E&M: 90169 Subs Hosp L2
[2017-04-18 19:20] VITALS: PULSE 101; RESP 18
[2017-04-18 20:24] VITALS: BP 111/57; PULSE 116; RESP 16; TEMP 37.2; O2SAT 96
[2017-04-18 20:47] VITALS: RESP 16; O2SAT 96
[2017-04-18] MEDS: DiphenhydrAMINE 25 MG Capsule PO (21:29)
[2017-04-18 21:30] VITALS: BMI 25.2
--- NOTE | 2017-04-19 03:30 | NURSING ---
Reviewed and agree with TIN POT OPERATOR documentation.
[2017-04-19] MEDS: Enoxaparin 40 MG/0.4 ML Syringe SC (05:18)
--- NOTE | 2017-04-19 05:21 | NURSING ---
Pt refused Sodium Chloride tablet this AM, due to episode of nausea/vomiting from prior administration. No further emesis or nausea noted or reported at this time.
[2017-04-19] MEDS: Ipratropium/Albuterol Sulfate 3 ML AMPUL.NEB INHALATION ×2 (06:39→13:00)
[2017-04-19 06:41] VITALS: PULSE 105; RESP 16
[2017-04-19 07:26] VITALS: BP 114/59; PULSE 104; RESP 17; TEMP 36.8; O2SAT 92
[2017-04-19] MEDS: Lisinopril 40 MG Tablet PO (07:27)
[2017-04-19] MEDS: Aspirin 81 MG TAB.CHEW PO (07:27)
[2017-04-19] MEDS: amLODIPine 10 MG Tablet PO (07:27)
[2017-04-19] MEDS: Atorvastatin Calcium 80 MG Tablet PO (07:27)
[2017-04-19] MEDS: Clopidogrel Bisulfate 75 MG Tablet PO (07:27)
--- NOTE | 2017-04-19 10:20 | CASEMGMT ---
Addendum entered by Laurel Starks 04/19/17 10:46: This licensed master social worker also giving patient information about the [place] support group and encouraging patient to seek out support ones living back in the community. Patient voicing understanding and receptive to receiving information about the [place] [facility] group. Original Note: Team meeting held. Patient present as well as patient spouse. Patient requesting for discharge date to be set for 04/19/17. Team is agreeable to discharge date. Patient plans to discharge home with spouse. Physical and Occupational therapy are recommending for patient to have continued therapy services through outpatient therapy. Patient is agreeable to recommendation and requesting for outpatient therapy services to be set up through [facility]. Patient spouse to provide transportation home for patient at time of discharge. Patient reporting to have needed durable medical equipment already set up within the home. Support given. Order for outpatient physical and occupational therapy faxed to [facility]. [facility] to contact patient to set up appointments, patient aware. Proposed discharge date: 04/19/17. PLAN: Discharge home with spouse and outpatient physical and occupational therapy. Laurel SANTIAGO, CHARTING CLERK
--- NOTE | 2017-04-19 10:43 | PCM.RU.DC ---
Rehab Discharge Summary DATE OF ADMISSION: 04/05/17 DATE OF DISCHARGE: 04/19/17 - Rehab Diagnosis CVA Discharge Diet: No Restrictions, - - Cardiac diet Discharge Activity: May Not Drive, May Shower, May Take a Tub Bath, Use Walker Weight Bearing Status: Weight bearing as tolerated Call your doctor if you observe: Fever of 101 or Higher, Coldness, Increased Pain, Numbness or Tingling, Change in Color, Inability to urinate, Inability to have a bowel movement, Using more than one pad per hour, Shortness of breath, Dizziness, Fainting spells, Swelling in the ankles, Chest pain, Prolonged hiccoughing, Increased palpitations (irregular heartbeat), Calf discomfort, Uncontrolled pain Home Medications: Medications to take at Discharge Fluticasone/Salmeterol [Advair 250-50 Diskus] 1 puff PO BID 04/03/17 Albuterol Aerosols [Ventolin Aerosols] 2.5 mg INHALATION Q2H PRN PRN vial.neb. 04/05/17 Aspirin [Aspirin, Baby] 81 mg PO DAILY@0800 tab.chew 04/05/17 Hydrochlorothiazide [Hctz] 25 mg PO DAILY tablet 04/05/17 Lisinopril [Zestril] 20 mg PO DAILY tablet 04/05/17 Acetaminophen [Tylenol Tablet] 650 mg PO Q6H PRN PRN tablet 04/19/17 Amlodipine [Norvasc] 10 mg PO DAILY #30 tab 04/19/17 Atorvastatin Calcium [Lipitor] 80 mg PO DAILY #30 tab 04/19/17 Citalopram [Celexa] 20 mg PO DAILY #30 tab 04/19/17 Clopidogrel Bisulfate [Plavix] 75 mg PO DAILY #30 tab 04/19/17 Famotidine [Pepcid] 20 mg PO BID #60 tab 04/19/17 Lisinopril [Zestril] 40 mg PO DAILY #30 tab 04/19/17 Sodium Chloride 1 gm PO TID 5 Days #15 tab 04/19/17 Following Prescrptions Were Given to Patient: Amlodipine [Norvasc] 10 mg PO DAILY #30 tab Atorvastatin Calcium [Lipitor] 80 mg PO DAILY #30 tab Citalopram [Celexa] 20 mg PO DAILY #30 tab Clopidogrel Bisulfate [Plavix] 75 mg PO DAILY #30 tab Lisinopril [Zestril] 40 mg PO DAILY #30 tab Famotidine [Pepcid] 20 mg PO BID #60 tab Sodium Chloride 1 gm PO TID 5 Days #15 tab Primary Care Physician: Alix Bonner DO [Primary Care Provider] - Please Follow Up With: Jamia Lind NP-C Please Follow Up With: Alix Bonner DO Disposition: Home Minutes spent on discharge:: 40 Patient Condition:: Good Rehab Course The patient is a 66 year old female, who was admitted to the rehab unit for rehabilitation after suffering a Right Thalamic/IC acute stroke. She has a history of HTN, COPD, Anxiety, panic attack. Per patient she woke up on Sunday, (04/03/17) with left sided numbness and weakness, could not walk due to weakness, slid down the bed, NIHSS was 2 on admission, was not a TPA candidate. The MRI brain done on admission showed acute right thalamic stroke/right IC stroke, MRA of her head/neck did not show any hemodynamically significant stenosis or occlusion. At present patient continues to have some left sided weakness which has improved greatly per the patient and some numbness. But denies any QUICK or visual disturbances. The Patient lives with her , in a Ranch style home with 2 steps to get into the house. does not need any assistance for her ADLs, denies any frequent falls, does drive, does not use cane or walker to ambulate. She was previously completely functionally independent and is admitted to the rehab unit in order to restore her previous level of functional independence. She did not take aspirin previously at home. With Physical therapy, the patient is stand by assist for transfers and pivots. She is able to walk about 250 feet at supervise level. She does have a left foot drop and her knee hyperextends, she has a soft knee brace in place which helps with her walking, she practice with an AFO on her left ankle. Patient stated felt more stable, she was able to go up and down several steps with it on, and the therapist felt her ankle was more stable and her foot plant was better. With Occupational therapy she can do all her own care, she does however require minimal to contact guard for balance, every once in a while. She has less Ataxia in her Left arm and it continues to improve. With speech therapy she is doing well no issues with eating they discharged her from their service. She is on a regular cardiac diet. Her sodium level continues to be low last check was 132, started her on Sodium Chloride pills 1 gram TID x 7 days. Will recheck her sodium level when she return for her follow up visit with in the office. She will have a 30day event monitor placed at discharge, and she will follow up with the Neurologist as an outpatient. She will have outpatient Physical therapy and Occupational therapy on discharge, no driving until cleared by the Neurology team. Meaningful Use Info Meaningful Use Diagnoses (Choose all that apply): Ischemic CVA - CVA Therapy Assessed for PT,OT and/or ST?: Yes - Ischemic Stroke Antithrombotic order at d/c?: Yes Dx of Atrial fib/flutter?: No Anticoagulant at discharge?: No Reason anticoagulant not ordered: Treatment not Indicated Statins at discharge?: Yes Primary Dx Acute Ischemic CVA?: Yes IV tPA ordered during stay?: No Reason IV t-PA not ordered: Treatment not Indicated
--- NOTE | 2017-04-19 12:16 | PCM.DC ---
- Discharge Diagnoses Reason(s) for Visit for Discharge Instructions: CVA You will use the following diet at home:: Regular, Cardiac Your food should be the consistency of: Regular Your liquids should be the consistency of: Regular/Thin Discharge Activity: May Not Drive, May Shower, May Take a Tub Bath, Use Walker Weight Bearing Status: Weight bearing as tolerated Call your doctor if you observe: Fever of 101 or Higher, Coldness, Increased Pain, Numbness or Tingling, Change in Color, Inability to urinate, Inability to have a bowel movement, Using more than one pad per hour, Shortness of breath, Dizziness, Fainting spells, Swelling in the ankles, Chest pain, Prolonged hiccoughing, Increased palpitations (irregular heartbeat), Calf discomfort, Uncontrolled pain Allergies/Adverse Reactions: Allergies No Known Allergies Allergy (Verified 04/03/17 05:56) Medications to take at Discharge Fluticasone/Salmeterol [Advair 250-50 Diskus] 1 puff PO BID 04/03/17 Albuterol Aerosols [Ventolin Aerosols] 2.5 mg INHALATION Q2H PRN PRN vial.neb. 04/05/17 Aspirin [Aspirin, Baby] 81 mg PO DAILY@0800 tab.chew 04/05/17 Hydrochlorothiazide [Hctz] 25 mg PO DAILY tablet 04/05/17 Lisinopril [Zestril] 20 mg PO DAILY tablet 04/05/17 Acetaminophen [Tylenol Tablet] 650 mg PO Q6H PRN PRN tablet 04/19/17 Amlodipine [Norvasc] 10 mg PO DAILY #30 tab 04/19/17 Atorvastatin Calcium [Lipitor] 80 mg PO DAILY #30 tab 04/19/17 Citalopram [Celexa] 20 mg PO DAILY #30 tab 04/19/17 Clopidogrel Bisulfate [Plavix] 75 mg PO DAILY #30 tab 04/19/17 Famotidine [Pepcid] 20 mg PO BID #60 tab 04/19/17 Lisinopril [Zestril] 40 mg PO DAILY #30 tab 04/19/17 Sodium Chloride 1 gm PO TID 5 Days #15 tab 04/19/17 The following prescriptions were given: Amlodipine [Norvasc] 10 mg PO DAILY #30 tab Atorvastatin Calcium [Lipitor] 80 mg PO DAILY #30 tab Citalopram [Celexa] 20 mg PO DAILY #30 tab Clopidogrel Bisulfate [Plavix] 75 mg PO DAILY #30 tab Lisinopril [Zestril] 40 mg PO DAILY #30 tab Famotidine [Pepcid] 20 mg PO BID #60 tab Sodium Chloride 1 gm PO TID 5 Days #15 tab Primary Care Physician: Alix Bonner DO [Primary Care Provider] - Please Follow Up With: Jamia Lind NP-C Please Follow Up With: Alix Bonner DO Proposed Discharge Date: 04/19/17
[2017-04-19 12:24] VITALS: BMI 25.2
[2017-04-19] MEDS: Budesonide Respules 0.5 MG/2 ML AMPUL.NEB. INHALATION (13:00)
[2017-04-19 13:02] VITALS: PULSE 100; RESP 16
[2017-04-19 13:57] VITALS: BP 114/59; PULSE 92; RESP 17; TEMP 36.8; O2SAT 92
--- NOTE | 2017-04-19 13:58 | NURSING ---
Patient and verbalized understanding to discharge instructions.
--- NOTE | 2017-04-19 14:03 | NURSING ---
Patient discharged and sent to cardiac dept for outpatient 30 day event monitor placement.
--- NOTE | 2017-04-19 14:43 | CASEMGMT ---
Insurance Notified insurance of patient discharge on04/19/17 to home with spouse and outpatient physical and occupational therapy. Auth#[id number] Laurel SANTIAGO, ADJUDICATION SPECIALIST
== END 2017-04-19 14:03 | disposition home or self-care (01) | DRG 57 ==
PROVIDERS: Family Medicine; Internal Medicine Nephrology; Nurse Practitioner Acute Care; Physician Assistant; Psychiatry & Neurology Neurology; Admitting Provider Psychiatry & Neurology Neurology; Family Provider Family Medicine; PCP Family Medicine; Visit Provider Internal Medicine
DX: I69.354 Hemiplegia and hemiparesis following cerebral infarction affecting left non-dominant side (principal); E87.1 Hypo-osmolality and hyponatremia; F17.210 Nicotine dependence, cigarettes, uncomplicated; F41.0 Panic disorder [episodic paroxysmal anxiety]; I10 Essential (primary) hypertension; J44.9 Chronic obstructive pulmonary disease, unspecified; I69.398 Other sequelae of cerebral infarction; R20.9 Unspecified disturbances of skin sensation; M21.372 Foot drop, left foot; Z79.899 Other long term (current) drug therapy; Z79.82 Long term (current) use of aspirin; Z79.02 Long term (current) use of antithrombotics/antiplatelets
CPT/HCPCS: 36415; 80048; 80053; 82533; 82570; 83735; 83935; 84100; 84295; 84300; 85025; 85027; 92523; 92526; 92610; 94640; 97032; 97110; 97112; 97116; 97163; 97166; 97530; 97535; 97802; 99406; J7030; A4216

== ENCOUNTER → 2017-05-03 15:28 | Outpatient (CLI) | payer OTHER, SELFPAY ==
[2017-05-03 17:18] LABS: Hematocrit 34.4 % (37-47); Hemoglobin 11.2 g/dl (12.0-15.0); Mean Corp Hgb Conc 32.6 g/gl (32-36); Mean Corpuscular Hgb 30.2 pg (27.0-32.0); Mean Corpuscular Volume 92.7 fL (81-99); Mean Platelet Vol. 9.2 fl (6.2-12.0); Platelet Count 387 K/mm3 (150-450); RBC Distribution Width CV 15.8 % (11.6-14.6); RBC Distribution Width SD 53.3 fl (35.1-43.9); Red Blood Count 3.71 M/mm3 (4.2-5.4); White Blood Count 8.3 K/mm3 (4.4-11.0)
[2017-05-03 17:21] LABS: Scan Indicated on CBC? Y/N NO
[2017-05-03 17:42] LABS: ALB/GLOB Ratio 0.8 RATIO (0.9-2.4); AST(SGOT) 29 U/L (15-37); Alanine Aminotransfer ALT/SGPT 51 U/L (13-56); Albumin, Serum 3.4 g/dL (3.2-5.0); Alkaline Phosphatase 211 U/L (45-117); Anion Gap 7 (5-15); BUN 20 mg/dL (7-18); BUN/Creat Ratio 14.8 RATIO (10-20); Calcium,Total 8.6 mg/dL (8.5-10.1); Chloride 107 mmol/L (98-107); Creatinine, Serum 1.35 mg/dL (0.55-1.02); EST Glomerular Filtration Rate 42 mL/min (>60); Est Glom Filt Rate - Afr Amer 51 mL/min (>60); Globulin 4.5 g/dL (2.2-4.2); Glucose 129 mg/dL (74-106); Magnesium 2.2 mg/dL (1.6-2.6); Phosphorus 2.6 mg/dL (2.5-4.9); Potassium 3.5 mmol/L (3.5-5.1); Protein, Total 7.9 g/dL (6.4-8.2); Sodium Level 135 mmol/L (136-145)
== END ==
PROVIDERS: Family Provider Family Medicine; PCP Family Medicine; Visit Provider Nurse Practitioner Acute Care
DX: E87.1 Hypo-osmolality and hyponatremia (principal)
CPT/HCPCS: 36415; 80053; 83735; 84100; 85027

== ENCOUNTER → 2017-06-13 06:50 | Outpatient (CLI) | payer MEDICARE, SELFPAY ==
--- NOTE | 2017-06-13 12:23 | STRESSREP ---
Stress Test Report Pharmacologic myocardial perfusion stress test. 66-year-old lady with a history of chest pain. Stress protocol: Resting EKG demonstrates normal sinus rhythm with a rate of 63 bpm normal intervals and noted resting blood pressure is 148/82 mmHg. 0.4 mg of regadenoson was infused per usual protocol followed by rapid intravenous saline flush injection. Continuous EKG monitoring was performed. The patient maintained sinus rhythm throughout the recording. At rest there were no ST or T-wave changes noted suggest abnormal flow reserve at peak infusion no ST or T-wave changes were noted suggest abnormal flow reserve. Resting blood pressure is 148/82 with a final blood pressure 152/88. Myocardial perfusion protocol. 10.5 mCi of technetium 99m sestamibi was injected at rest. 0.4 mg of regadenoson was infused per usual protocol. At peak infusion 31.9 mCi of technetium 99m sestamibi was injected stress images were obtained stress and rest images were reconstructed and compared in the short axis vertical long and horizontal long axis. Gated images were also obtained. Perfusion SPECT analysis. Review of the stress images demonstrate normal uptake of tracer noted in the septum anterior wall and lateral wall. The inferior wall demonstrates a moderate amount of reduction in perfusion. There is mild improvement in the above with some residual perfusion defect. It is not clear whether this is due to attenuation artifact or residual ischemia in a previously infarcted zone. Gated SPECT analysis: The gated ejection fraction is noted to be 64%. Conclusion: Pharmacologic myocardial perfusion stress test with possible inferior ischemia. Preserved ejection fraction present.
--- NOTE | 2017-06-13 12:26 | STRESSREP_ITS ---
Stress Test Report Pharmacologic myocardial perfusion stress test. 66-year-old lady with a history of chest pain. Stress protocol: Resting EKG demonstrates normal sinus rhythm with a rate of 63 bpm normal intervals and noted resting blood pressure is 148/82 mmHg. 0.4 mg of regadenoson was infused per usual protocol followed by rapid intravenous saline flush injection. Continuous EKG monitoring was performed. The patient maintained sinus rhythm throughout the recording. At rest there were no ST or T -wave changes noted suggest abnormal flow reserve at peak infusion no ST or T- wave changes were noted suggest abnormal flow reserve. Resting blood pressure is 148/82 with a final blood pressure 152/88. Myocardial perfusion protocol. 10.5 mCi of technetium 99m sestamibi was injected at rest. 0.4 mg of regadenoson was infused per usual protocol. At peak infusion 31.9 mCi of technetium 99m sestamibi was injected stress images were obtained stress and rest images were reconstructed and compared in the short axis vertical long and horizontal long axis. Gated images were also obtained. Perfusion SPECT analysis. Review of the stress images demonstrate normal uptake of tracer noted in the septum anterior wall and lateral wall. The inferior wall demonstrates a moderate amount of reduction in perfusion. There is mild improvement in the above with some residual perfusion defect. It is not clear whether this is due to attenuation artifact or residual ischemia in a previously infarcted zone. Gated SPECT analysis: The gated ejection fraction is noted to be 64%. Conclusion: Pharmacologic myocardial perfusion stress test with possible inferior ischemia. Preserved ejection fraction present.
== END ==
PROVIDERS: Family Provider Family Medicine; PCP Family Medicine; Visit Provider Internal Medicine Cardiovascular Disease
DX: I47.2 Ventricular tachycardia (principal); R07.9 Chest pain, unspecified
CPT/HCPCS: 78452; 93017; A9500; A4216; J2785

== ENCOUNTER → 2017-08-17 09:27 | Outpatient (CLI) | payer MEDICARE, SELFPAY ==
[2017-08-17 10:04] LABS: Hematocrit 38.3 % (37-47); Hemoglobin 12.3 g/dl (12.0-15.0); Mean Corp Hgb Conc 32.1 g/gl (32-36); Mean Corpuscular Hgb 29.8 pg (27.0-32.0); Mean Corpuscular Volume 92.7 fL (81-99); Mean Platelet Vol. 9.5 fl (6.2-12.0); Platelet Count 287 K/mm3 (150-450); RBC Distribution Width CV 13.7 % (11.6-14.6); RBC Distribution Width SD 46.2 fl (35.1-43.9); Red Blood Count 4.13 M/mm3 (4.2-5.4); White Blood Count 6.6 K/mm3 (4.4-11.0)
[2017-08-17 10:05] LABS: Scan Indicated on CBC? Y/N NO
[2017-08-17 10:36] LABS: Anion Gap 7 (5-15); BUN 21 mg/dL (7-18); BUN/Creat Ratio 17.6 RATIO (10-20); Calcium,Total 8.9 mg/dL (8.5-10.1); Chloride 106 mmol/L (98-107); Creatinine, Serum 1.19 mg/dL (0.55-1.02); EST Glomerular Filtration Rate 48 mL/min (>60); Est Glom Filt Rate - Afr Amer 59 mL/min (>60); Glucose 92 mg/dL (74-106); Potassium 4.1 mmol/L (3.5-5.1); Sodium Level 137 mmol/L (136-145)
== END ==
PROVIDERS: Family Provider Family Medicine; PCP Family Medicine; Visit Provider Internal Medicine Cardiovascular Disease
DX: I47.2 Ventricular tachycardia (principal); R55 Syncope and collapse; Z86.73 Personal history of transient ischemic attack (TIA), and cerebral infarction without residual deficits
CPT/HCPCS: 36415; 80048; 85027

== ENCOUNTER 2017-08-21 12:00 | Outpatient (RCR) | payer MEDICARE, OTHER, SELFPAY ==
--- NOTE | 2017-04-27 14:04 | HP.OTEVAL_ITS ---
Patient's Visit Information DONAL JOHNSON is a 66 year old F, referred to Occupational Therapy by Jamia Lind, JOSEC,KARSTEN, with a diagnosis of CVA. Date of Evaluation: 04/27/17 Occupational Therapist: Laverne Reyes - Subjective Subjective: Pt., Pilar, nadine with . Liv present for session. She noted she had CVA on 2017. She noted she went to [facility] in morning. SHe noted symptoms cleared itself. Notes has MRI to confirm CVA. She spent 2 weeks on inpatient rehab. 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 She attends bar and completes book. 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 - Nine Hole Peg Right: 28.40 s Left: 50.57 s - In-Hand Manipulation Finger to Palm Translation: Mild - Right, Moderate - Left Palm to Finger Translation: Normal - Right, Mild - Right, Mild - Left, Moderate - Left - Stroke Specific Quality of Life Total SS-QOL Score: 137 - Goals Goal:: Pilar to increased L UE strength to that of R nonaffected UE to promote strength and endurance for ADl/IADls by d/c. Goal:: Pilar to increased finger dexterity, FMC, in hand manipulation through decreased time on 9 hole pegboard test to promote increased in hand manipulation by d/c. Goal:: Pilar to increased sensation through decreased monofilament scores to promote increased touch sensation to promote ADL/IADl sby d/c. Goal:: Pilar to return to all ADL/IADls (I) with good safety awareness 4/5 trials 80% of the time to promote increased (I) by d/c. - Rehabilitation Rehabilitation Potential: Good - Anticipated Interventions Anticipated Interventions: Strengthening, Sensory Retraining, Ergonomic Education, Fine Motor Coord/Js, ADL Training, Caregiver Training, Home Program - Visit Plan Frequency: 2x /Week Duration: 4 Weeks TEXT: Thank you for the opportunity to evaluate your patient. For Medicare and Medicare HMO plans, please review the plan of care and approve it. It will need to be FAXED BACK to us at [phone] for Medicare purposes. Please let me know if there are questions or concerns regarding this plan of care. Physician Signature: Date:
--- NOTE | 2017-04-27 14:26 | HP.PTEVAL_ITS ---
Patient's Visit Information DONAL JOHNSON is a 66 year old F referred to Physical Therapy by Jamia Lind, DAYANNA-C DAYANNA.KELLY with a diagnosis of CVA. Date of Evaluation: 04/27/17 Physical Therapist: Dario White PT, - Visit Plan Frequency: 2x /Week Duration: 4 Weeks Plan: Patient ambulates with rollator. gait/balance training ,motor control ex' s leg/ankle,strengthening,conditioning - Subjective Subjective: This 66 y/o female presenst to physical therapy with CVA. Patient had CVA with weakness left ER [facility] thus did MRI showed CVA of right thalmus and right intenal capsule. Patient was in acute care 2 days then transferred to Rehab 4th floor 2weeks d/c to home Apr 19 2017. Prior to CVA Independant ADL'S ,work ,drive ,ambulated with device.Patient requires some assist with dressing , Independant with bathing with shower seat. Spouse does housework cleaning, laundry,cooking.Patient fell Sunday bending over.Patient has some numbness hands.Patient CVA affects quality of life.Denies parathesia/tingling. HOME SITUATION: raunch with steps with rail. SOCAIL: . VOVATION: works - Objective POSTURE: mild foward posture. GAIT: mild foward posture motor control DF-drags toe ,decrease heel strike ,hip knee flexion ,slight hyperextension knee ataxia with motor control. BALANCE: fair with fww. TRANSFER: Mod Independant. BED MOBLITY: mod Independant with supine-sit. MMT: quads/hams/hip flexion 4-/5, ankle 4-/5 - Balance Scores CATSIB Score (Max score 120 seconds): 50 - Goals Goal 1:: Patient to be Independant with HEP Goal Time Frame: 4-6 Weeks Goal 2:: Patient to ambualte with least restrictive device community distance with improve quality of gait with heel strike to off Goal Time Frame: 4-6 Weeks Goal 3:: Patient to improve dynanic balance with least restrictive device good-. Goal Time Frame: 4-6 Weeks Goal 4:: Patient to increase strength 4/5 to improve function with walking and ADL'S to improve control with gait Goal Time Frame: 4-6 Weeks Goal 5:: Patient be able to perform ADL'S and housework tasks with min limiations Goal Time Frame: 4-6 Weeks Goal 6:: ASECEND/DESCEND 12 STEPS WITH SUPERVSION/MOD INDEPENDANT WITH RAIL - Rehabilitation Potential Physical Therapy Diagnosis: Patient had CVA with weakness decrease motor control impairs function with gait ,balance thus impairs ADLS' and housework tasks Rehabilitation Potential: Good - Anticipated Interventions Patient/Client Instruction: Educate patient on: Condition, Plan of Care For the Purpose of:: To decrease pain, To improve muscle performance and motor function, To improve ability to perform ADL's, To increase tolerance to activity /condition/position, To improve performance and independence with ADL's, To improve ability of physical actions for home/community/work/leisure, To improve gait and locomotor functions, To increase flexibility/ROM, To improve endurance , To improve balance, To improve safety, To improve tolerance to ADL's Therapeutic Exercise to Include: Strength training, Endurance training, Balance training, Coordination, Gait and locomotor training Comment: LE For the Purpose of:: To improve muscle performance and motor function, To improve ability to perform ADL's, To increase tolerance to activity/condition/ position, To improve performance and independence with ADL's, To decrease level of supervision to perform tasks, To improve gait and locomotor functions, To improve endurance, To improve balance, To improve safety with gait, To assume or resume ADL's, To improve tolerance to ADL's Functional Training to Include: Gait training For the Purpose of:: To improve muscle performance and motor function, To improve ability to perform ADL's, To improve performance and independence with ADL's, To decrease level of supervision to perform tasks, To improve gait and locomotor functions, To improve safety with gait Thank you for the opportunity to evaluate your patient. For Medicare and Medicare HMO plans, please review the plan of care and approve it. It will need to be FAXED BACK to us at [phone] for Medicare purposes. Please let me know if there are questions or concerns regarding this plan of care. Physician Signature: Date:
--- NOTE | 2017-04-27 15:21 | HP.OTEVAL ---
Patient's Visit Information DONAL JOHNSON is a 66 year old F, referred to Occupational Therapy by Jamia Lind, JOSEC,BRUSH TRIMMING MACHINE SETTER.CARLTON, with a diagnosis of CVA. Date of Evaluation: 04/27/17 Occupational Therapist: Laverne Reyes - Subjective Subjective: Pt., Pilar, arrived with . present for session. She noted she had CVA on 2017. She noted she went to [facility] in morning. SHe noted symptoms cleared itself. Notes has MRI to confirm CVA. She spent 2 weeks on inpatient rehab. 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 She attends bar and completes book. 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 - Nine Hole Peg Right: 28.40 s Left: 50.57 s - In-Hand Manipulation Finger to Palm Translation: Mild - Right, Moderate - Left Palm to Finger Translation: Normal - Right, Mild - Right, Mild - Left, Moderate - Left - Stroke Specific Quality of Life Total SS-QOL Score: 137 - Goals Goal:: Pilar to increased L UE strength to that of R nonaffected UE to promote strength and endurance for ADl/IADls by d/c. Goal:: Pilar to increased finger dexterity, FMC, in hand manipulation through decreased time on 9 hole pegboard test to promote increased in hand manipulation by d/c. Goal:: Pilar to increased sensation through decreased monofilament scores to promote increased touch sensation to promote ADL/IADl sby d/c. Goal:: Pilar to return to all ADL/IADls (I) with good safety awareness 4/5 trials 80% of the time to promote increased (I) by d/c. Goal:: Pilar to be (I) to complete HEP for BUE strength and sensory reintegration techniques 4/5 trials 80% of the time to promote increased (I) and ability to complete ADL/IADls by d/c. 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 - Rehabilitation General Assessment: Pt., Pilar, arrived for OT eval on this date. She experienced a CVA 2017 which affected L UE. SHe noted that she stayed 3-[address] [facility] rehab unit for therapy. She has sincec returned home and per report needs increased help with ADLs from due to time it takes for compeltion. She noted she is unable to complete iADLs at this time. Pilar to be treated by OT to address UE strength, endurance, coping skills and caregiver/Pt. training, LUE sensation, and returning to all ADL/IADLS by d/c. Rehabilitation Potential: Good - Anticipated Interventions Anticipated Interventions: A/AAROM/PROM, Strengthening, Sensory Retraining, Joint Protection/Energy Conservation, Ergonomic Education, Fine Motor Coord/Js, Neuro Reeducation, Cognitive Skills, ADL Training, Caregiver Training, Home Program - Visit Plan Frequency: 2x /Week Duration: 4 Weeks General Plan: Pilar to recieve OT servcies for holistic rehabiliation to help promote coping post CVA as well as increased BUE strength, endurance, L UE sensation, and general ability to return to all ADl/IADls at [facility] for increased QOL. TEXT: Thank you for the opportunity to evaluate your patient. For Medicare and Medicare HMO plans, please review the plan of care and approve it. It will need to be FAXED BACK to us at [phone] for Medicare purposes. Please let me know if there are questions or concerns regarding this plan of care. Physician Signature: Date:
--- NOTE | 2017-05-24 12:01 | HP.PTREVAL_ITS ---
Jamia Lind, JOSEC, KARSTEN It has been my pleasure to treat DONAL JOHNSON over the last 9 visits for CVA. Please see the progress note below for an update on the physical therapy plan of care! Subjective: My goal walk without device. Patient more active around home , Independant with ADLS' ,. SRAIRS Objective/Function: POSTURE: mild foward posture. GAIT: ambulate with rollater Independant, with improved heel strike to toe off. ambulates with QC with CGA/ SBA 2 point gait 15O FEET. MMT: quads/hams/ankle 4/5 ,hip flexion 4-/5. BALANCE: fair+ with device. MOTOR CONTROL IMPROVED. STAIRS: ascend/descend 12 steps CGA Plan Plan: CONT WITH POC 2XWEEK FOR 4WEEKS Goals Goal 1:: Patient to be Independant with HEP Goal Time Frame: 4-6 Weeks Goal Progress: Progressing Goal 2:: Patient to ambualte with least restrictive device community distance with improve quality of gait with heel strike to off Goal Time Frame: 4-6 Weeks Goal Progress: Progressing Goal 3:: Patient to improve dynanic balance with least restrictive device good-. Goal Time Frame: 4-6 Weeks Goal Progress: Progressing Goal 4:: Patient to increase strength 4/5 to improve function with walking and ADL'S to improve control with gait Goal Time Frame: 4-6 Weeks Goal Progress: Progressing Goal 5:: Patient be able to perform ADL'S and housework tasks with min limiations Goal Time Frame: 4-6 Weeks Goal Progress: Progressing Goal 6:: ASECEND/DESCEND 12 STEPS WITH SUPERVSION/MOD INDEPENDANT WITH RAIL Goal Time Frame: 4-6 Weeks Goal Progress: Progressing Anticipated Interventions Patient/Client Instruction: Educate patient on: Condition, Plan of Care For the Purpose of:: To decrease pain, To improve muscle performance and motor function, To improve ability to perform ADL's, To increase tolerance to activity /condition/position, To improve performance and independence with ADL's, To improve ability of physical actions for home/community/work/leisure, To improve gait and locomotor functions, To increase flexibility/ROM, To improve endurance , To improve balance, To improve safety, To improve tolerance to ADL's Therapeutic Exercise to Include: Strength training, Endurance training, Balance training, Coordination, Gait and locomotor training Comment: LE For the Purpose of:: To improve muscle performance and motor function, To improve ability to perform ADL's, To increase tolerance to activity/condition/ position, To improve performance and independence with ADL's, To decrease level of supervision to perform tasks, To improve gait and locomotor functions, To improve endurance, To improve balance, To improve safety with gait, To assume or resume ADL's, To improve tolerance to ADL's Functional Training to Include: Gait training For the Purpose of:: To improve muscle performance and motor function, To improve ability to perform ADL's, To improve performance and independence with ADL's, To decrease level of supervision to perform tasks, To improve gait and locomotor functions, To improve safety with gait Please do not hesitate to contact me at [phone] by phone or Fax: if you have questions or concerns regarding this new plan of care! Sincerely, Dario White PT,
--- NOTE | 2017-05-24 13:03 | HP.OTREVAL ---
Jamia Lind, BENCH LAY OUT TECHNICIAN-C, KARSTEN It has been my pleasure to treat DONAL JOHNSON over the last 9 visits for CVA. Please see the progress note below for an update on the occupational therapy plan of care! Subjective: Pt. arrived with . Bhanu present for session. She noted that she feels she is about 80% back to 100% prior to CVA. SHe is starting to complete small meals but is not back to cooking as she would like. Continue to address. Objective/Function: Completed reassessment on this date. She notes persistance of numbness and tingling in L hand in morning. Monofilment test completed and she has progressed on touch sensation from inital evaluation. Monofilament scores are as follows for R vs. L hands: R 2 3.22, 3rd 2.83, 4th 3.22, 5th 3.84, thumb 3.84; L hand 2 3.22, 3rd 3.22, 4th 3.22, 5th 3.61, thumb 3.61. Reassessment complete and B UE ROM is WFL. 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 ( hole pegbaord test completed and results progressed from intial evaluation. ( hole pegboard reulsts on R hand 23.06s, and L 35.98 s. She is completing making of some small sides/entries for IADLs. Pilar completed Stroke QOL scale and has progressed from initally rated score of 137 to todays score of 169. She has progressed and will continue OT at this time. Plan Frequency: 1x/Week Duration: 2 Weeks Plan: 1x 2 weeks follow up appointments to set up additional sensory reintegration exercises for HEP. PT to address LE functioning. She will slowly start to progress geting back to normal routine. Goals - Goals Goal:: Pilar to increased L UE strength to that of R nonaffected UE to promote strength and endurance for ADl/IADls by d/c. Goal:: Pilar to increased finger dexterity, FMC, in hand manipulation through decreased time on 9 hole pegboard test to promote increased in hand manipulation by d/c. Goal:: Pilar to increased sensation through decreased monofilament scores to promote increased touch sensation to promote ADL/IADl sby d/c. Goal:: Pilar to return to all ADL/IADls (I) with good safety awareness 4/5 trials 80% of the time to promote increased (I) by d/c. Goal:: Pilar to be (I) to complete HEP for BUE strength and sensory reintegration techniques 4/5 trials 80% of the time to promote increased (I) and ability to complete ADL/IADls by d/c. 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 Anticipated Interventions Anticipated Interventions: A/AAROM/PROM, Strengthening, Sensory Retraining, Joint Protection/Energy Conservation, Ergonomic Education, Fine Motor Coord/Js, Neuro Reeducation, Cognitive Skills, ADL Training, Caregiver Training, Home Program Please do not hesitate to contact me at [phone] by phone or if you have questions or concerns regarding this new plan of care! Sincerely, Laverne Reyes
--- NOTE | 2017-06-05 15:56 | HP.PTREVAL_ITS ---
Jamia Lind, JOSEC, KARSTEN It has been my pleasure to treat DONAL JOHNSON over the last 12 visits for CVA. Please see the progress note below for an update on the physical therapy plan of care! Subjective: Patient had CVA affected left side Apr 02. Patient had Rehab 2weeks d/c to home rollator. C/O parathesia in hands. Patient is Independant with dressing,bathing. Spouse does the cooking. Patient not driving. Steps one steps at a time. Objective/Function: POSTURE: mild foward posture. NEURO: denies parathesia/ tingling ,reflexes patella ,achilles hyperreflexia,TONE: patient has mod ataxia, decrease motor contol left leg. TRANSFERS: Independant with transfers. BED MOBLITY: supine -sit mod Independant. MMT: quads/hams bilateral 4/5,hip flexion L 4-/5,abd 3+/5 L ,ANKLE BILATERAL 4/5. STAIRS: one steps at time with rail/SBQC. GAIT: ambulates with SBQC with point gait with supervision with decrease control due to ataxia left leg with decrease control heel stricke toe off. 400 feet. BALANCE: fair+ dynamic balnce Plan Plan: PLAN OF CARE 2XWEEK FOR 6 WEEKS -12 VISITS. FOR PROGRESSIVE GAIT TRAINING ,BALANCE TRAINING,MOTOR CONTROL, STRENGTHENING LE,STAIR STRAINING. PATIENT WILL BENIFIT FROM SKILLED PHYSICAL THERAPY TO ADDRESS ABOVE IMPAIRMENTS WITH BALANCE MOTOR CONTROL OF ATAXIA,STRENGTH GAIT AND BALANCE Goals Goal 1:: Patient to be Independant with HEP Goal Time Frame: 6-8 Weeks Goal Progress: Progressing Goal 2:: Patient to ambulate with least restrictive device community distance with improve quality of gait with heel strike toe off with Mod independant . Goal Time Frame: 6-8 Weeks Goal Progress: Progressing Goal 3:: Patient to improve dynamic balance with least restrictive device good- and improve motor control left leg Goal Time Frame: 6-8 Weeks Goal Progress: Progressing Goal 4:: Patient to increase strength hip 4/5 to improve function with walking and ADL'S to improve control with gait Goal Time Frame: 6-8 Weeks Goal Progress: Progressing Goal 5:: Patient improve score on functional gait assessment to 19-20 Goal Time Frame: 6-8 Weeks Goal Progress: Progressing Goal 6:: ASECEND/DESCEND 12 STEPS WITH SUPERVSION/MOD INDEPENDANT WITH RAIL Goal Time Frame: 4-6 Weeks Goal Progress: Progressing Anticipated Interventions Patient/Client Instruction: Educate patient on: Condition, Plan of Care For the Purpose of:: To decrease pain, To improve muscle performance and motor function, To improve ability to perform ADL's, To increase tolerance to activity /condition/position, To improve performance and independence with ADL's, To improve ability of physical actions for home/community/work/leisure, To improve gait and locomotor functions, To increase flexibility/ROM, To improve endurance , To improve balance, To improve safety, To improve tolerance to ADL's Therapeutic Exercise to Include: Strength training, Endurance training, Balance training, Coordination, Gait and locomotor training Comment: LE For the Purpose of:: To improve muscle performance and motor function, To improve ability to perform ADL's, To increase tolerance to activity/condition/ position, To improve performance and independence with ADL's, To decrease level of supervision to perform tasks, To improve gait and locomotor functions, To improve endurance, To improve balance, To improve safety with gait, To assume or resume ADL's, To improve tolerance to ADL's Functional Training to Include: Gait training For the Purpose of:: To improve muscle performance and motor function, To improve ability to perform ADL's, To improve performance and independence with ADL's, To decrease level of supervision to perform tasks, To improve gait and locomotor functions, To improve safety with gait Please do not hesitate to contact me at [phone] by phone or Fax: if you have questions or concerns regarding this new plan of care! Sincerely, Dario White PT,
--- NOTE | 2017-06-07 15:02 | HP.OTDCSUM ---
HP - OT D/C Summary It has been my pleasure to treat DONAL JOHNSON under orders from Jamia Lind, JOSEC, KARSTEN for the diagnosis of CVA for a total of 11 visit(s). Please see the following information for a summary of their discharge status. - Objective Objective/Function: Completed reassessment on this date. B UE ROM is WFL. 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 Completed monofilament testing and all have progressed and are WFL. R hand 2nd 3.22 3rd 2.83 4th 3.22 5th 3.22 thumb 3.84 ; L hand 2nd 3.22 3rd 3.22 4th 3.22 5th 3.22 thumb 3.22. Completed 9 hole pegboard test completed R 23.94 s, and L 39.48 s. She has progressed with therapy and is completing ADL/IADls. She completed Stroke Quality of Life Scale has progressed from 166 to 179. She has progressed and meant most goals and will be d/c'd on this date. - Goals Patient Goals: Regain Mobility, Regain Strength, Decrease Pain, Return to Work, Improve Fine Motor Skills, Use Hand/Wrist/Arm Normally Again, Sleep Better, Increase ROM, Be More Independent in ADLS, Resume Former Household Responsibilities (Cooking,Cleaning,Yard, etc.), Resume Hobbies Goal:: Pilar to increased L UE strength to that of R nonaffected UE to promote strength and endurance for ADl/IADls by d/c. Goal:: Pilar to increased finger dexterity, FMC, in hand manipulation through decreased time on 9 hole pegboard test to promote increased in hand manipulation by d/c. Goal:: Pilar to increased sensation through decreased monofilament scores to promote increased touch sensation to promote ADL/IADl sby d/c. Goal:: Pilar to return to all ADL/IADls (I) with good safety awareness 4/5 trials 80% of the time to promote increased (I) by d/c. Goal:: Pilar to be (I) to complete HEP for BUE strength and sensory reintegration techniques 4/5 trials 80% of the time to promote increased (I) and ability to complete ADL/IADls by d/c. 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 - Plan Plan: Pt. will be d/c'd. She is progressing and will continue to progress with returning to IADLs and community outtings as advised with PT. She is to call with questions/concerns. - D/C Information If there are questions or concerns regarding this patient's occupational therapy, please fell free to call me at [phone]. Thank you for the referral of this patient. Sincerely, Laverne Reyes
--- NOTE | 2017-06-21 13:47 | HP.PTREVAL_ITS ---
Jamia Lind, DAYANNA-C, It has been my pleasure to treat DONAL JOHNSON over the last 17 visits for CVA. Please see the progress note below for an update on the physical therapy plan of care! Subjective: Doing better ,using quad cane in the house .No falls ,denies pain.Independant with bathing in tube ,dressing. does houswork and cleaning. Discussed with patient about advance to can. Denies parathesia/ tingling. Objective/Function: POSTURE: mild foward posture ,posterior pelvic tilt. NEURO : denies parathesia/tingling,hyperrflexia achilles and patella,mild/ mod ataxia left leg. BALANCE: static good-,standing dynamic fair+. CATSIB: 95score. FUNCTIONAL GAIT ASSESSMENT: 10. MMT: 4/5 BILATERAL QUADSS/HAMS ,HIP FLEX/ABD 4-/5 ,ANKLE 4/5. GAIT: ambulated with straight cane with SBA/ supervision mild ataxia left leg control. 500 feet, then no device CGA/SBA 400 feet with decrease control left leg with ataxia with heel strike toe off. STAIRS: one step at a time with with cane rail with SBA Plan Plan: REGQUESTING 12 MORE VISITS. PATIENT TO BENIFIT FROM SKIKLLED PT DUE TO IMPAIRED GAIT WITHOUT DEVICE,BALNACE ,MILD/MOD ATAXIA LEFT LEG IN ORDER TO RETURN TO PRIOR LEVEL OF Independant LEVEL WITH HOUSEWORK TASKS AND JOB DEMANDS. ALSO ,AMBULATE SAFE WITHOUT DEVICE AT COMMUNITY DISTANCES Goals Goal 1:: Patient to be Independant with HEP Goal Time Frame: 6-8 Weeks Goal Progress: Progressing Goal 2:: Patient to ambulate with least restrictive device community distance with improve quality of gait with heel strike toe off with Mod independant . Goal Time Frame: 6-8 Weeks Goal Progress: Progressing Goal 3:: Patient to improve dynamic balance with least restrictive device good- and improve motor control left leg Goal Time Frame: 6-8 Weeks Goal Progress: Progressing Goal 4:: Patient to increase strength hip 4/5 to improve function with walking and ADL'S to improve control with gait Goal Time Frame: 6-8 Weeks Goal Progress: Progressing Goal 5:: Patient improve score on functional gait assessment to 19-20 Goal Time Frame: 6-8 Weeks Goal Progress: Progressing Goal 6:: ASECEND/DESCEND 12 STEPS WITH SUPERVSION/MOD INDEPENDANT WITH RAIL Goal Time Frame: 4-6 Weeks Goal Progress: Progressing Anticipated Interventions Patient/Client Instruction: Educate patient on: Condition, Plan of Care For the Purpose of:: To decrease pain, To improve muscle performance and motor function, To improve ability to perform ADL's, To increase tolerance to activity /condition/position, To improve performance and independence with ADL's, To improve ability of physical actions for home/community/work/leisure, To improve gait and locomotor functions, To increase flexibility/ROM, To improve endurance , To improve balance, To improve safety, To improve tolerance to ADL's Therapeutic Exercise to Include: Strength training, Endurance training, Balance training, Coordination, Gait and locomotor training Comment: LE For the Purpose of:: To improve muscle performance and motor function, To improve ability to perform ADL's, To increase tolerance to activity/condition/ position, To improve performance and independence with ADL's, To decrease level of supervision to perform tasks, To improve gait and locomotor functions, To improve endurance, To improve balance, To improve safety with gait, To assume or resume ADL's, To improve tolerance to ADL's Functional Training to Include: Gait training For the Purpose of:: To improve muscle performance and motor function, To improve ability to perform ADL's, To improve performance and independence with ADL's, To decrease level of supervision to perform tasks, To improve gait and locomotor functions, To improve safety with gait Please do not hesitate to contact me at [phone] by phone or Fax: if you have questions or concerns regarding this new plan of care! Sincerely, Dario White PT,
--- NOTE | 2017-06-21 13:57 | HP.PTREVAL_ITS ---
Jamia Lind, DAYANNA-C, It has been my pleasure to treat DONAL JOHNSON over the last 17 visits for CVA. Please see the progress note below for an update on the physical therapy plan of care! Subjective: Doing better ,using quad cane in the house .No falls ,denies pain.Independant with bathing in tube ,dressing. does houswork and cleaning. Discussed with patient about advance to can. Denies parathesia/ tingling. Objective/Function: POSTURE: mild foward posture ,posterior pelvic tilt. NEURO : denies parathesia/tingling,hyperrflexia achilles and patella,mild/ mod ataxia left leg. BALANCE: static good-,standing dynamic fair+. CATSIB: 95score. FUNCTIONAL GAIT ASSESSMENT: 10. MMT: 4/5 BILATERAL QUADSS/HAMS ,HIP FLEX/ABD 4-/5 ,ANKLE 4/5. GAIT: ambulated with straight cane with SBA/ supervision mild ataxia left leg control. 500 feet, then no device CGA/SBA 400 feet with decrease control left leg with ataxia with heel strike toe off. STAIRS: one step at a time with with cane rail with SBA Plan Plan: REGQUESTING 12 MORE VISITS. PATIENT TO BENIFIT FROM SKIKLLED PT DUE TO IMPAIRED GAIT WITHOUT DEVICE,BALANACE ,MILD/MOD ATAXIA LEFT LEG IN ORDER TO RETURN TO PRIOR LEVEL OF Independant LEVEL WITH HOUSEWORK TASKS AND JOB DEMANDS. ALSO ,AMBULATE SAFE WITHOUT DEVICE AT COMMUNITY DISTANCES Goals Goal 1:: Patient to be Independant with HEP Goal Time Frame: 6-8 Weeks Goal Progress: Progressing Goal 2:: Patient to ambulate with least restrictive device community distance with improve quality of gait with heel strike toe off with Mod independant . Goal Time Frame: 6-8 Weeks Goal Progress: Progressing Goal 3:: Patient to improve dynamic balance with least restrictive device good- and improve motor control left leg Goal Time Frame: 6-8 Weeks Goal Progress: Progressing Goal 4:: Patient to increase strength hip 4/5 to improve function with walking and ADL'S to improve control with gait Goal Time Frame: 6-8 Weeks Goal Progress: Progressing Goal 5:: Patient improve score on functional gait assessment to 19-20 Goal Time Frame: 6-8 Weeks Goal Progress: Progressing Goal 6:: ASECEND/DESCEND 12 STEPS WITH SUPERVSION/MOD INDEPENDANT WITH RAIL Goal Time Frame: 6-8 Weeks Goal Progress: Progressing Anticipated Interventions Patient/Client Instruction: Educate patient on: Condition, Plan of Care For the Purpose of:: To decrease pain, To improve muscle performance and motor function, To improve ability to perform ADL's, To increase tolerance to activity /condition/position, To improve performance and independence with ADL's, To improve ability of physical actions for home/community/work/leisure, To improve gait and locomotor functions, To increase flexibility/ROM, To improve endurance , To improve balance, To improve safety, To improve tolerance to ADL's Therapeutic Exercise to Include: Strength training, Endurance training, Balance training, Coordination, Gait and locomotor training Comment: LE For the Purpose of:: To improve muscle performance and motor function, To improve ability to perform ADL's, To increase tolerance to activity/condition/ position, To improve performance and independence with ADL's, To decrease level of supervision to perform tasks, To improve gait and locomotor functions, To improve endurance, To improve balance, To improve safety with gait, To assume or resume ADL's, To improve tolerance to ADL's Functional Training to Include: Gait training For the Purpose of:: To improve muscle performance and motor function, To improve ability to perform ADL's, To improve performance and independence with ADL's, To decrease level of supervision to perform tasks, To improve gait and locomotor functions, To improve safety with gait Please do not hesitate to contact me at [phone] by phone or Fax: if you have questions or concerns regarding this new plan of care! Sincerely, Dario White PT,
--- NOTE | 2017-07-23 15:07 | HP.PTREVAL_ITS ---
Jamia Lind, DAYANNA-C, It has been my pleasure to treat DONAL JOHNSON over the last 23 visits for CVA. Please see the progress note below for an update on the physical therapy plan of care! Subjective: Patient fell off bar chair..twisted knee. Patient uses more safe with SBCQ. Denies paathesia. Independant with ADL'S ,spouse assist with cooking, cleaning. Patient amabulated with cane outside. GOAL RTW ,DRIVE WALK WITH OUT CANE. Objective/Function: POSTURE: mild foward posture. GAIT: ambulates with SBQC Independant at community distances with decrease motor conrol left leg min/mod . Ambulates with SBA/supervsion level surface ,but unlevel surfaces such as grass requires CGA but with decrease balance and less motor control left foot. MMT:quads/hams/hip 4/5 except left hip abd/flexion 4-/5,ankle,4/5. MOTOR CONTROL: decrease control ataxia mild left side. DYNAMIC BALANCE: good- with cane. STAIRS : aecend/desecend 12 steps with rail with and cane one steps at a time Plan Plan: REQUESTING 8 MORE VISITS. PATIENT WILL BENIFIT FROM SKILLED PT DUE DUE TO BALANCE DEFICITS ,DECREASE MOTOR CONTROL LEFT SIDE,REQUIRES USE OF SBQC WITH COMMUNITY DISTANCES ,UNABLE TO RTW ,DIFFICULTY WITH ADL'S WITH COOKING,CLEANING- HOUSEWORK Goals Goal 1:: Patient to be Independant with HEP Goal Time Frame: 6-8 Weeks Goal Progress: Progressing Goal 2:: Patient to ambulate with least restrictive device community distance with improve quality of gait with heel strike toe off with Mod independant . Goal Time Frame: 6-8 Weeks Goal Progress: Progressing Goal 3:: Patient to improve dynamic balance with least restrictive device good- and improve motor control left leg Goal Time Frame: 6-8 Weeks Goal Progress: Progressing Goal 4:: Patient to increase strength hip 4/5 to improve function with walking and ADL'S to improve control with gait Goal Time Frame: 6-8 Weeks Goal Progress: Progressing Goal 5:: Patient improve score on functional gait assessment to 19-20 Goal Time Frame: 6-8 Weeks Goal Progress: Progressing Goal 6:: ASECEND/DESCEND 12 STEPS WITH SUPERVSION/MOD INDEPENDANT WITH RAIL Goal Time Frame: 6-8 Weeks Goal Progress: Progressing Anticipated Interventions Patient/Client Instruction: Educate patient on: Condition, Plan of Care For the Purpose of:: To decrease pain, To improve muscle performance and motor function, To improve ability to perform ADL's, To increase tolerance to activity /condition/position, To improve performance and independence with ADL's, To improve ability of physical actions for home/community/work/leisure, To improve gait and locomotor functions, To increase flexibility/ROM, To improve endurance , To improve balance, To improve safety, To improve tolerance to ADL's Therapeutic Exercise to Include: Strength training, Endurance training, Balance training, Coordination, Gait and locomotor training Comment: LE For the Purpose of:: To improve muscle performance and motor function, To improve ability to perform ADL's, To increase tolerance to activity/condition/ position, To improve performance and independence with ADL's, To decrease level of supervision to perform tasks, To improve gait and locomotor functions, To improve endurance, To improve balance, To improve safety with gait, To assume or resume ADL's, To improve tolerance to ADL's Functional Training to Include: Gait training For the Purpose of:: To improve muscle performance and motor function, To improve ability to perform ADL's, To improve performance and independence with ADL's, To decrease level of supervision to perform tasks, To improve gait and locomotor functions, To improve safety with gait Please do not hesitate to contact me at [phone] by phone or Fax: if you have questions or concerns regarding this new plan of care! Sincerely, Dario White PT,
--- NOTE | 2017-08-21 12:54 | HP.PTDCSUM_ITS ---
HP - PT D/C Summary It has been my pleasure to treat DONAL JOHNSON under orders from MICHAEL Wise, for the diagnosis of CVA for a total of 27 visit(s). Discharge Date: 08/21/17 Please see the following information for a summary of their discharge status. - Subjective Subjective: Doing well ,walking in home gait without cane.But uses cane for extended distances with gait . Able to do ADL'S Independant ,and cleaning, outside work. - Pain Left Knee Pain Intensity (Out of 10): 0 - Overall Improvement % Improvement: 85 - Objective Objective/Function: POSTURE: mild foward posture. GAIT: ambulated with no device independant 500 feet in PT with improved motor control. DYNAMIC: good - level. MMT: quads/hams /hams 4/5,ankle 4/5. STAIRS: alternating ascend/ descening stairs with rail. NEURO: improved motor control - Goals Goal 1:: Patient to be Independant with HEP Goal Progress: Goal Met Goal 2:: Patient to ambulate with least restrictive device community distance with improve quality of gait with heel strike toe off with Mod independant . Goal Progress: Progressing Goal 3:: Patient to improve dynamic balance with least restrictive device good- and improve motor control left leg Goal Progress: Goal Met Goal 4:: Patient to increase strength hip 4/5 to improve function with walking and ADL'S to improve control with gait Goal Progress: Goal Met Goal 5:: Patient improve score on functional gait assessment to 19-20 Goal Progress: Goal Met Goal 6:: ASECEND/DESCEND 12 STEPS WITH SUPERVSION/MOD INDEPENDANT WITH RAIL Goal Progress: Goal Met - Plan Plan: D/C TO HEP - D/C Information Discharge Comments: HEP If there are questions or concerns regarding this patient's physical therapy, please feel free to call me at [phone]. Thank you for the referral of this patient. Sincerely, Dario White, PT,
== END 2017-08-21 19:00 | disposition home or self-care (01) ==
LOC: PT 12:00
PROVIDERS: Family Provider Family Medicine; PCP Family Medicine; Visit Provider Nurse Practitioner Acute Care
DX: Z86.73 Personal history of transient ischemic attack (TIA), and cerebral infarction without residual deficits (principal)
CPT/HCPCS: 97110; 97112; 97116; 97162; 97166; 97168; 97530; G8987; G8988; G8989

== ENCOUNTER 2017-08-27 08:19 | Day surgery (SDC) | payer MEDICARE, SELFPAY ==
[2017-08-24 11:25] VITALS: BMI 22.8
--- NOTE | 2017-08-27 10:58 | CL.IE_ITS ---
Patient: DONAL JOHNSON Study Date: 08/27/2017 Performing: Imtiaz Loco MD : 1950 Age: 67 Gender: female PROCEDURES PERFORMED [id number] OF LOOP RECORDER INDICATIONS Syncope PROCEDURE DETAILS The patient was brought to the Catheterization Lab in the postabsorptive nonsedated state. Informed consent was obtained prior to the procedure. Local anesthetic was given subcutaneously to the left up per chest area with Lidocaine 2%. Incision was made to the left upper chest. Skin closure was complet ed with Steri Strips. The patient tolerated the procedure well. 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 Device Recommendations: Follow up with Primary Care Physician PROCEDURE MEDICATIONS Versed 1 mg IV Antibiotic given in appropriate timeframe. Ancef 1 Gm IV @ 08/27/2017 10:14:46 Signed By Imtiaz Loco MD On 08/27/2017 10:58:21 Imtiaz Loco MD
== END 2017-08-27 12:00 | disposition home or self-care (01) ==
LOC: CLSP 08:21
PROVIDERS: Family Provider Family Medicine; PCP Family Medicine; Visit Provider Internal Medicine Cardiovascular Disease
DX: R00.2 Palpitations (principal); I10 Essential (primary) hypertension; I27.21 Secondary pulmonary arterial hypertension; I47.2 Ventricular tachycardia; J44.9 Chronic obstructive pulmonary disease, unspecified; K50.90 Crohn's disease, unspecified, without complications; L40.9 Psoriasis, unspecified; Z86.73 Personal history of transient ischemic attack (TIA), and cerebral infarction without residual deficits; Z98.51 Tubal ligation status; Z90.89 Acquired absence of other organs; F17.200 Nicotine dependence, unspecified, uncomplicated; Z79.82 Long term (current) use of aspirin; Z79.899 Other long term (current) drug therapy
CPT/HCPCS: 33282; 99152; J7040; A4216

== ENCOUNTER → 2018-02-11 11:02 | Outpatient (CLI) | payer MEDICARE, SELFPAY ==
[2018-02-11 11:02] VITALS: BMI 25.2
[2018-02-11 12:21] LABS: Absolute Lymphocyte Count 1.87 X10^3/ul (0.83-4.51); Absolute Neutrophil Count 7.8 X10^3/uL (2.0-7.7); Eosinophil# 0.07 X10^3/uL; Eosinophils% 0.7 % (0-5); Hematocrit 34.9 % (37-47); Hemoglobin 11.4 g/dl (12.0-15.0); Lymphocyte # 1.87 X10^3/ul (4.0); Lymphocyte % 17.4 % (19-41); Mean Corp Hgb Conc 32.7 g/gl (32-36); Mean Corpuscular Hgb 27.8 pg (27.0-32.0); Mean Corpuscular Volume 85.1 fL (81-99); Mean Platelet Vol. 9.4 fl (6.2-12.0); Monocyte# 0.93 X10^3/uL; Monocyte% 8.7 % (0-10); Neutrophil # 7.84 X10^3/uL (2.7-7.7); Platelet Count 370 K/mm3 (150-450); RBC Distribution Width CV 14.8 % (11.6-14.6); RBC Distribution Width SD 46.4 fl (35.1-43.9); White Blood Count 10.7 K/mm3 (4.4-11.0)
[2018-02-11 12:43] LABS: POSITIVE COUNT NO; POSITIVE DIFFERENTIAL NO; POSITIVE MORPHOLOGY NO
[2018-02-11 13:05] LABS: ALB/GLOB Ratio 1.1 RATIO (0.9-2.4); AST(SGOT) 17 U/L (15-37); Alanine Aminotransfer ALT/SGPT 28 U/L (13-56); Albumin, Serum 3.7 g/dL (3.2-5.0); Alkaline Phosphatase 68 U/L (45-117); Anion Gap 8 (5-15); BUN 24 mg/dL (7-18); BUN/Creat Ratio 22.4 RATIO (10-20); Calcium,Total 8.4 mg/dL (8.5-10.1); Chloride 101 mmol/L (98-107); Creatinine, Serum 1.07 mg/dL (0.55-1.02); EST Glomerular Filtration Rate 55 mL/min (>60); Est Glom Filt Rate - Afr Amer 66 mL/min (>60); Globulin 3.5 g/dL (2.2-4.2); Glucose 79 mg/dL (74-106); Potassium 3.1 mmol/L (3.5-5.1); Protein, Total 7.2 g/dL (6.4-8.2); Sodium Level 132 mmol/L (136-145); T4 Free Direct 0.93 ng/dL (0.76-1.46); Thyroid Stim Hormone (TSH) 1.34 uIU/mL (0.358-3.74)
== END ==
PROVIDERS: PCP Family Medicine; Visit Provider Family Medicine
DX: I10 Essential (primary) hypertension (principal); Z51.81 Encounter for therapeutic drug level monitoring; Z86.73 Personal history of transient ischemic attack (TIA), and cerebral infarction without residual deficits
CPT/HCPCS: 36415; 80053; 84439; 84443; 85025

== ENCOUNTER → 2018-02-18 12:56 | Outpatient (CLI) | payer MEDICARE, SELFPAY ==
[2018-02-11 11:02] VITALS: BMI 25.2
[2018-02-18 15:49] LABS: Anion Gap 6 (5-15); BUN 19 mg/dL (7-18); BUN/Creat Ratio 17.6 RATIO (10-20); Chloride 98 mmol/L (98-107); Creatinine, Serum 1.08 mg/dL (0.55-1.02); EST Glomerular Filtration Rate 54 mL/min (>60); Est Glom Filt Rate - Afr Amer 65 mL/min (>60); Glucose 171 mg/dL (74-106); Potassium 3.4 mmol/L (3.5-5.1); Sodium Level 129 mmol/L (136-145)
--- OUTSIDE RECORDS SUMMARY | 2018-05-23 03:43 | XMS RPT_ITS ---
:1950 Author Organization [place] Support Name Relationship Address Phone AARON PAULINO Unavailable [address] + [place] [address] R Unavailable Unavailable Unavailable SPRENG, CASSANDRA Unavailable [address] + [place] [address] PAULINO, AARON Unavailable [address] + [place] [address] R Unavailable Unavailable Unavailable SPRENG, CASSANDRA Unavailable [address] + [place] [address] PAULINO, AARON Unavailable [address] + [place] [address] R Unavailable Unavailable Unavailable SPRENG, CASSANDRA Unavailable [address] + [place] [address] PAULINO, AARON Unavailable [address] + [place] [address] R Unavailable Unavailable Unavailable SPRENG, CASSANDRA Unavailable [address] + [place] [address] PAULINO, AARON Unavailable [address] + [place] [address] R Unavailable Unavailable Unavailable SPRENG, CASSANDRA Unavailable [address] + [place] [address] PAULINO, AARON Unavailable [address] + [place] [address] R Unavailable Unavailable Unavailable SPRENG, CASSANDRA Unavailable [address] + [place] [address] PAULINO, AARON Unavailable [address] + [place] [address] R Unavailable Unavailable Unavailable SPRENG, CASSANDRA Unavailable [address] + [place] [address] PAULINO, AARON Unavailable [address] + [place] [address] R Unavailable Unavailable Unavailable SPRENG, CASSANDRA Unavailable [address] + [place] [address] PAULINO, AARON Unavailable [address] + [place] [address] R Unavailable Unavailable Unavailable SPRENG, CASSANDRA Unavailable [address] + [place] [address] PAULINO, AARON Unavailable [address] + [place] [address] R Unavailable Unavailable Unavailable SPRENG, CASSANDRA Unavailable [address] + [place] [address] PAULINO, AARON Unavailable [address] + [place] [address] R Unavailable Unavailable Unavailable SPRENG, CASSANDRA Unavailable [address] + [place] [address] PAULINO, AARON Unavailable [address] + [place] [address] R Unavailable Unavailable Unavailable SPRENG, CASSANDRA Unavailable [address] + [place] [address] PAULINO, AARON Unavailable [address] + [place] [address] R Unavailable Unavailable Unavailable SPRENG, CASSANDRA Unavailable [address] + [place] [address] PAULINO, AARON Unavailable [address] + [place] [address] R Unavailable Unavailable Unavailable SPRENG, CASSANDRA Unavailable [address] + [place] [address] PAULINO, AARON Unavailable [address] + [place] [address] R Unavailable Unavailable Unavailable SPRENG, CASSANDRA Unavailable [address] + [place] [address] PAULINO, AARON Unavailable [address] + [place] [address] R Unavailable Unavailable Unavailable SPRENG, CASSANDRA Unavailable [address] + [place] [address] PAULINO, AARON Unavailable [address] + [place] [address] R Unavailable Unavailable Unavailable SPRENG, CASSANDRA Unavailable [address] + [place] [address] PAULINO, AARON Unavailable [address] + [place] [address] R Unavailable Unavailable Unavailable SPRENG, CASSANDRA Unavailable [address] + [place] [address] PAULINO, AARON Unavailable [address] + [place] [address] R Unavailable Unavailable Unavailable SPRENG, CASSANDRA Unavailable [address] + [place] [address] PAULINO, AARON Unavailable [address] + [place] [address] R Unavailable Unavailable Unavailable SPRENG, CASSANDRA Unavailable [address] + [place] [address] PAULINO, AARON Unavailable [address] + [place] [address] R Unavailable Unavailable Unavailable SPRENG, CASSANDRA Unavailable [address] + [place] [address] PAULINO, AARON Unavailable [address] + [place] [address] R Unavailable Unavailable Unavailable SPRENG, CASSANDRA Unavailable [address] + [place] [address] PAULINO, AARON Unavailable [address] + [place] [address] R Unavailable Unavailable Unavailable SPRENG, CASSANDRA Unavailable [address] + [place] [address] PAULINO, AARON Unavailable [address] + [place] [address] R Unavailable Unavailable Unavailable SPRENG, CASSANDRA Unavailable [address] + [place] [address] PAULINO, AARON Unavailable [address] + [place] [address] R Unavailable Unavailable Unavailable SPRENG, CASSANDRA Unavailable [address] + [place] [address] PAULINO, AARON Unavailable [address] + [place] [address] R Unavailable Unavailable Unavailable SPRENG, CASSANDRA Unavailable [address] + [place] [address] PAULINO, AARON Unavailable [address] + [place] [address] R Unavailable Unavailable Unavailable SPRENG, CASSANDRA Unavailable [address] + [place] [address] PAULINO, AARON Unavailable [address] + [place] [address] R Unavailable Unavailable Unavailable SPRENG, CASSANDRA Unavailable [address] + [place] [address] PAULINO, AARON Unavailable [address] + [place] [address] R Unavailable Unavailable Unavailable SPRENG, CASSANDRA Unavailable [address] + [place] [address] PAULINO, AARON Unavailable [address] + [place] [address] R Unavailable Unavailable Unavailable SPRENG, CASSANDRA Unavailable [address] + [place] [address] Care Team Providers Name Role Phone ClaudyImtiaz Attending Unavailable Malys, Alix Referring Unavailable Malys, Alix Primary Care Unavailable White, Barbara Admitting Unavailable White, Barbara Attending Unavailable Jennifer, Hermelindo S. Consulting Unavailable White, Barbara Admitting Unavailable White, Barbara Attending Unavailable Malys, Alix Primary Care Unavailable White, Barbara Consulting Unavailable White, Barbara Admitting Unavailable White, Barbara Attending Unavailable Malys, Alix Primary Care Unavailable Jennifer, Hermelindo S. Consulting Unavailable White, Barbara Consulting Unavailable White, Barbara Admitting Unavailable White, Barbara Attending Unavailable Malys, Alix Primary Care Unavailable Jennifer, Hermelindo S. Consulting Unavailable White, Barbara Consulting Unavailable David Bah Admitting Unavailable Malys, Alix Primary Care Unavailable Marek Osorio Attending Unavailable Josie Mariano Consulting Unavailable White, Barbara Consulting Unavailable David Bah Admitting Unavailable White, Barbara Attending Unavailable Malys, Alix Primary Care Unavailable White, Barbara Consulting Unavailable Bah, David Consulting Unavailable Bah, David Admitting Unavailable White, Barbara Attending Unavailable Malys, Alix Primary Care Unavailable White, Barbara Consulting Unavailable García, Josie Consulting Unavailable Bah, David Consulting Unavailable Bah, David Admitting Unavailable Angelic, Jose Martin Attending Unavailable Malys, Alix Primary Care Unavailable White, Barbara Consulting Unavailable García, Josie Consulting Unavailable Ashelfah, Ghasem Consulting Unavailable Bah, David Admitting Unavailable Angelic, Jose Martin Attending Unavailable Malys, Alix Primary Care Unavailable White, Barbara Consulting Unavailable García, Josie Consulting Unavailable Ashelfah, Ghasem Consulting Unavailable Bah, David Admitting Unavailable Devon, Marek Attending Unavailable Malys, Alix Primary Care Unavailable García, Josie Consulting Unavailable White, Barbara Consulting Unavailable Devon, Marek Consulting Unavailable Bah, David Admitting Unavailable Devon, Marek Attending Unavailable Malys, Alix Primary Care Unavailable García, Josie Consulting Unavailable White, Barbara Consulting Unavailable Devon, Marek Consulting Unavailable Hermelindo Rodriguez Attending Unavailable Malys, Alix Primary Care Unavailable CLARE, LORENA Consulting Unavailable Diogo, Laton ACCOUNT RECEIVABLE CLERK-C Attending Unavailable Malys, Alix Primary Care Unavailable Idogo, Laton ACCOUNT RECEIVABLE CLERK-C Referring Unavailable Diogo, Laton ACCOUNT RECEIVABLE CLERK-C Attending Unavailable Diogo, Laton ACCOUNT RECEIVABLE CLERK-C Referring Unavailable Malys, Alix Primary Care Unavailable Ludwig Villegas Attending Unavailable White, Barbara Referring Unavailable Sarah Lyons Attending Unavailable Claudy, Imtiaz Attending Unavailable Malys, Alix Referring Unavailable Malys, Alix Primary Care Unavailable Claudy, [place] Attending Unavailable Claudy, [place] Referring Unavailable Malys, Alix Primary Care Unavailable Claudy, [place] Attending Unavailable Claudy, [place] Attending Unavailable Claudy, Imtiaz Referring Unavailable Ally Almonte Attending Unavailable Dorothea Goodwin Attending Unavailable Malys, Alix Referring Unavailable Malys, Alix Primary Care Unavailable Erika Latham Attending Unavailable Malys, Alix Referring Unavailable Malys, Alix Primary Care Unavailable Claudy, [place] Attending Unavailable Claudy, [place] Referring Unavailable Malys, Alix Primary Care Unavailable Claudy, [place] Attending Unavailable Claudy, [place] Referring Unavailable Malys, Alix Primary Care Unavailable Erika Lathma Attending Unavailable Claudy, [place] Attending Unavailable Malys, Alix Attending Unavailable Malys, Alix Attending Unavailable Nena, Yolanda Attending Unavailable PROVIDER, UNKNOWN Referring Unavailable No, PCP Primary Care Unavailable Diogo, Laton S Attending Unavailable Malys, Alix A Primary Care Unavailable Diogo, Jamia S Attending Unavailable Malys, Alix A Primary Care Unavailable PROBLEMS PROBLEMS DATE TYPE CONDITION / CODE ATTENDING STATUS SOURCE 02/18/2018 Unknown I10 - Essential Malys, Alix Active [facility] (primary) [facility] hypertension / Hospital I10(ICD-10) Repository 02/12/2018 Unknown I63.9 - Cerebral Malys, Alix Active [facility] infarction, Community unspecified / Hospital I63.9(ICD-10) Repository 02/12/2018 Unknown Z51.81 - Encounter Malys, Alix Active [facility] for therapeutic Community drug level Hospital monitoring / Repository Z51.81(ICD-10) 02/04/2018 Admitting Dermatitis, NenaJcen Active [facility] Diagnosis unspecified / System L30.9(ICD-10) Repository 10/10/2017 Admitting Unknown / Diogo, Jamia S Active [facility] Medical diagnosis UNK(Unknown) [facility] [place] Repository 08/30/2017 Unknown Z86.73 - Personal Diogo, Laton Active [facility] history of ACCOUNT RECEIVABLE CLERK-C Community transient ischemic Hospital attack (TIA), and Repository cerebral infarction without residual deficits / Z86.73(ICD-10) 08/18/2017 Unknown I47.2 - Erika Latham Active [facility] Ventricular Community tachycardia / Hospital I47.2(ICD-10) Repository PROCEDURES PROCEDURES No Procedure Records FoundRESULTS RESULTS CARDIOLOGY VISIT Observed: 03/21/2018 Status: F Source: [facility] REPORT 11:55 AM [facility] REPOSITORY [facility] [address] [place] [address] OFFICE VISIT Date of Service: 03/21/18 MR#: [id number] Acct: [id number] Name: DONAL JOHNSON Rep #: [id number] : 1950 Provider: Imtiaz Loco MD Age/Sex: 67/F Location: [facility] Status: Signed HPI HPI Chief Complaint: Follow up Details: DONAL JOHNSON, is a 67 F who presents to the office today for a follow-up visit. She is a lady with a history of previous cerebrovascular accident and asymptomatic wide-complex tachycardia. She had a loop recorder implanted and we have continue to follow this. She has had no chest pain or shortness breath or paroxysmal nocturnal dyspnea pedal edema she is been compliant with her medications. Her physical exam here today demonstrates clear lung parada regular rate and rhythm and no pedal edema Intake Vital Signs03/21/18 Height 5 ft 3 in 03/21/18 Weight: 124 lb 03/21/18 Body Mass Index (BMI) 21.9 03/21/18 Blood Pressure 164/88 H 03/21/18 Blood Pressure Location Lt brachial Intake Visit Reasons: 6 M FU Hired Help Required: No Accompanied by: none Is patient in pain?: No Allergies No Known Allergies Allergy (Verified 03/21/18 11:37) Medications Fluticasone/Salmeterol [Advair 250-50 Diskus] 1 puff PO BID 04/03/17 [History Confirmed 03/21/18] Albuterol Aerosols [Ventolin Aerosols] 2.5 mg INHALATION Q2H PRN PRN vial.neb. 04/05/17 [Rx Confirmed 03/21/18] Acetaminophen [Tylenol Tablet] 650 mg PO Q6H PRN PRN tab 04/19/17 [Rx Confirmed 03/21/18] Atorvastatin Calcium [Lipitor] 80 mg PO DAILY #30 tab 04/19/17 [Rx Confirmed 03/21/18] Citalopram [Celexa] 20 mg PO DAILY #30 tab 04/19/17 [Rx Confirmed 03/21/18] Clopidogrel Bisulfate [Plavix] 75 mg PO DAILY #30 tab 04/19/17 [Rx Confirmed 03/21/18] metoprolol succinate ER 50 mg tablet,extended release 24 hr 50 mg PO QDAY #90 tab 05/16/17 [Rx Confirmed 03/21/18] aspirin 81 mg tablet,delayed release 81 mg PO QDAY #90 tab 03/21/18 [Rx Confirmed 03/21/18] hydrochlorothiazide 25 mg tablet 25 mg PO DAILY #90 tab 03/21/18 [Rx Confirmed 03/21/18] lisinopril 40 mg tablet 40 mg PO BID tab 03/21/18 [History] [facility] Medical History Secondary pulmonary arterial hypertension (Chronic) Nicotine dependence (Chronic) CVA (cerebral vascular accident) (Acute) Ventricular tachycardia (Acute) Left leg weakness (Acute) HTN (hypertension) (Chronic) COPD (chronic obstructive pulmonary disease) (Chronic) Bronchitis (Chronic) Crohn disease (Chronic) Lupus (Chronic) Psoriasis (Chronic) left sided paresthesias (Inactive) Surgical History Status post placement of implantable loop recorder (Chronic) History of appendectomy (Chronic) History of blepharoplasty (Chronic) History of carpal tunnel release (Chronic) History of cataract surgery (Chronic) History of tubal ligation (Chronic) History of appendectomy (Inactive) Status post blepharoplasty of both eyes (Inactive) Family History Father Hypertension Lung cancer Mother Lupus Sister Crohn's disease Social History Smoking Status: Heavy Smoker (>10/day) ROS Const Const: Negative for fatigue, weakness, night sweats, excessive sweating, frequent falls, headache(s) or daytime sleepiness Eyes Eyes: Negative for loss of peripheral vision, transient loss of vision, blind spots, double vision or blurry vision ENT ENT: Negative for headache(s), dizziness, balance problems, Nosebleed/epistaxis, tongue swelling or lip swelling Cardio Chest Pain: No Palpitations: No Edema: None Muscle aches with walking: None Resp Respiratory: Negative for SOB at rest, SOB orthopnea\SOB lying down, Cough, paroxysmal nocturnal dyspnea or SOB with activity GI GI: Negative nausea, vomiting, heartburn, black,tarry stools or bright, red blood in stools : Negative for hematuria Musc Musc: Negative for balance problems, muscle aches/ myalgia, muscle weakness or joint pain Skin Skin: Negative non-healing lesions, unusual bruising or rash Neuro Neuro: Negative for weakness, frequent falls, headache(s), double vision, dizziness, lightheadedness, orthostatic symptoms, blurry vision or lack of coordination Pro Hematologic/Lymphatic: Negative for easy bruising or easy bleeding Endo Endo: Negative for fatigue, excessive sweating, cold intolerance, heat intolerance, increased thirst/drinking or hair loss Psych Psych: Negative for anxiety or depression Allergy Allergy/Immunology: Negative for throat swelling, Negative for tongue swelling, Negative for hives, Negative for rash, Negative for lip swelling Cardiology Exam Const Appearance: cooperative, healthy appearing, well developed, well groomed and no acute distress Nutritional Appearance: well nourished and average body habitus Orientation: alert, awake and oriented x3 Head Head: normal to inspection, normocephalic and atraumatic Ears: hearing grossly normal bilaterally and external ears normal Nose: external nose normal, nasal mucous membranes and turbinates normal, nares normal, septum normal, no nasal discharge Face and Sinus: face symmetric Mouth: oral mucosae normal, tongue normal, oropharynx normal and moist mucous membranes Teeth and gingiva: dentition normal Throat: posterior oropharynx normal, tonsils normal and uvula midline Eyes General: appearance normal, both eyes and all related structures Eyelids: eyelids normal Conjunctivae: conjunctivae normal Pupils: PERRL, normal by confrontation and accommodation normal EOM: EOM intact bilaterally Neck Neck: normal visual inspection, trachea midline and no JVD JVD: +5 Carotids: normal carotid upstroke and bounding pulses Chest Chest inspection: normal inspection of the chest, symmetric chest movement and normal respiratory effort Auscultation: Bilateral: Clear to Auscultation Cardio Palpation: normal PMI Rate: regular rate Rhythm: regular rhythm Heart sounds: S1 normal, S2 normal and normal, physiologic split S2; negative rub, gallop or murmur GI GI: normal to inspection, soft, no hepatosplenomegaly and bowel sounds present Neuro General: alert, awake, oriented x3, no focal sensory deficit, gait normal and moves all extremities Skin Skin: no rashes or lesions noted Extremities Pulses: Normal: Right Femoral Pulse, Left Femoral Pulse, Right Dorsalis Pedis Pulse, Left Dorsalis Pedis Pulse, Right Posterior Tibial Pulse, Left Posterior Tibial Pulse, Right Radial Pulse, Left Radial Pulse Lower Extremity Edema: None: Bilateral Musculoskel Musculoskeletal: No joint tenderness Psych Psychological: normal affect Assessment AND Plan 1. Essential hypertension I10 Plan She does have a history of hypertension. Her blood pressure at this time is still appears to be elevated. My recommendation would be for us to start her on an HERMINIA inhibitor especially with a previous history of cerebrovascular accident. 2. Status post placement of implantable loop recorder Z95.818 08/27/[address] Loco @ [facility] Plan She is status post implantable loop recorder. We will continue to interrogate to the above through our office. No other major changes will be made. 3. Abnormal stress test R94.39 Plan She did have a previous mildly abnormal stress test but has had no symptoms we will continue to watch her carefully. I would like her to start back on aspirin 81 mg a day in addition to her beta-shira as well as her high intensity statin. Plan Detail Other Medications New: Follow Up 6 Months (mmm) Coding Level of Care Code Off vis,est,level 4 Diagnoses Essential hypertension I10 Hypertension type: essential hypertension Status post placement of implantable loop recorder Z95.818 Abnormal stress test R94.39 Coding Level of Care Code Off vis,est,level 4 Diagnoses Essential hypertension I10 Hypertension type: essential hypertension Status post placement of implantable loop recorder Z95.818 Abnormal stress test R94.39 Supplemental Info Supplemental Information Diagnostics Stress Test Nuclear Medicine 06/13/17 Stress Test 06/13/17 Pacemaker Check 08/17/17 03/21/18 1155 <Electronically signed by Imtiaz Loco MD> Date Imtiaz Loco MD Cosigner Signature: Date (if applicable) CC: Alix Bonner DO BASIC METABOLIC Collected: 02/18/2018 Status: F Source: [facility] PROFILE ([facility]) 12:58 PM [facility] REPOSITORY TYPE CODE TESTS RESULT OUT OF RANGE REFERENCE UNITS LAB L501.0100 74-106 mg/dL High GLU 171 Result Comment: Fasting Glucose result greater than or equal to 126 mg/dL suggests DIABETES MELLITUS per A.D.A. criteria. Please note revised GLUCOSE reference range effective 2017. LAB L501.1000 7-18 mg/dL High BUN 19 LAB L501.1100 0.55-1.02 mg/dL High CREAT,SERUM 1.08 Result Comment: The validity of the calculated GFR AND GFRAA in patients over 70 years has not been determined. Clinical correlation is essential. LAB L501.1110 >60 mL/min Low EST GFR 54 Result Comment: Non- GFR Calc LAB L501.1115 >60 mL/min Normal EST GFR - AA 65 Result Comment: GFR Calc LAB L501.1300 10-20 RATIO Normal BUN/CRE 17.6 LAB L501.2200 8.5-10.1 mg/dL Low CA 8.0 LAB L501.5300 136-145 mmol/L Low NA 129 LAB L501.5600 3.5-5.1 mmol/L Low K 3.4 LAB L501.5900 98-107 mmol/L CL Normal 98 LAB L501.6100 21.0-32.0 mmol/L Normal CO2 25.0 LAB L501.6200 5-15 Normal GAP 6 Performed By: #### L500.2500 #### [facility] [address] [place], [place], [address] CBC W/DIFF, AUTOMATED Collected: 02/11/2018 Status: F Source: [facility] 11:05 AM [facility] REPOSITORY TYPE CODE TESTS RESULT OUT OF RANGE REFERENCE UNITS LAB L100.1000 4.4-11.0 K/mm3 Normal WBC 10.7 LAB L100.1200 4.2-5.4 M/mm3 Low RBC 4.10 LAB L100.1300 12.0-15.0 g/dl Low HGB 11.4 LAB L100.1400 37-47 % Low HCT 34.9 LAB L100.1500 81-99 fL Normal MCV 85.1 LAB L100.1600 27.0-32.0 pg Normal MCH 27.8 LAB L100.1700 32-36 g/gl Normal MCHC 32.7 LAB L100.1810 11.6-14.6 % High RDW CV 14.8 LAB L100.1820 35.1-43.9 fl High RDW SD 46.4 LAB L100.1900 150-450 K/mm3 Normal PLT 370 LAB L100.2000 6.2-12.0 fl Normal MPV 9.4 LAB L100.2100 47-70 % High NEUT% 73.0 LAB L100.2200 19-41 % Low LY% 17.4 LAB L100.2300 0-10 % Normal MONO% 8.7 LAB L100.2400 0-5 % Normal EO% 0.7 LAB L100.2500 0-1 % Normal BASO% 0.0 LAB L100.2550 0.0-0.9 % Normal IM GRAN % 0.200 Result Comment: IG% - Immature Granulocytes (promyelocytes, myelocytes and metamyelocytes) > 1% indicates that a LEFT SHIFT is Present. LAB L100.2620 2.0-7.7 X10 3/uL High Absolute Neut 7.8 LAB L100.2720 0.83-4.51 X10 3/ul Normal Absolute Lymph 1.87 Performed By: #### L100.0100 #### [facility] [address] [place], [place], [address] COMPREHENSIVE METABOLIC Collected: 02/11/2018 Status: F Source: [facility] 11:05 AM [facility] REPOSITORY TYPE CODE TESTS RESULT OUT OF RANGE REFERENCE UNITS LAB L501.0100 74-106 mg/dL Normal GLU 79 Result Comment: Please note revised GLUCOSE reference range effective 2017. LAB L501.1000 7-18 mg/dL High BUN 24 LAB L501.1100 0.55-1.02 mg/dL High CREAT,SERUM 1.07 Result Comment: The validity of the calculated GFR AND GFRAA in patients over 70 years has not been determined. Clinical correlation is essential. LAB L501.1110 >60 mL/min Low EST GFR 55 Result Comment: Non- GFR Calc LAB L501.1115 >60 mL/min Normal EST GFR - AA 66 Result Comment: GFR Calc LAB L501.1300 10-20 RATIO High BUN/CRE 22.4 LAB L501.1500 6.4-8.2 g/dL T Normal PROT 7.2 LAB L501.1800 3.2-5.0 g/dL Normal ALB 3.7 LAB L501.1950 2.2-4.2 g/dL Normal GLOB 3.5 LAB L501.2000 0.9-2.4 RATIO Normal A/G 1.1 LAB L501.2200 8.5-10.1 mg/dL Low CA 8.4 LAB L501.4100 15-37 U/L Normal AST 17 LAB L501.4305 45-117 U/L Normal ALK P 68 LAB L501.4405 13-56 U/L Normal ALT 28 LAB L501.4600 0.20-1.00 mg/dL T Normal BILI 0.40 LAB L501.5300 136-145 mmol/L Low NA 132 LAB L501.5600 3.5-5.1 mmol/L Low K 3.1 LAB L501.5900 98-107 mmol/L CL Normal 101 LAB L501.6100 21.0-32.0 mmol/L Normal CO2 23.0 LAB L501.6200 5-15 Normal GAP 8 Performed By: #### L500.4050, L501.9520, L506.0400 #### [facility] [address] [place], [address] THYROID STIM HORMONE Collected: 02/11/2018 Status: F Source: [facility] ([facility]) 11:05 AM [facility] REPOSITORY TYPE CODE TESTS RESULT OUT OF RANGE REFERENCE UNITS LAB L501.9520 0.358-3.74 uIU/mL Normal TSH 1.34 Performed By: #### L500.4050, L501.9520, L506.0400 #### [facility] [address] [place], [place], [address] T4 FREE DIRECT Collected: 02/11/2018 Status: F Source: [facility] 11:05 AM [facility] REPOSITORY TYPE CODE TESTS RESULT OUT OF RANGE REFERENCE UNITS LAB L506.0400 0.76-1.46 ng/dL Normal T4 FREE 0.93 DIRECT Performed By: #### L500.4050, L501.9520, L506.0400 #### [facility] [address] [place], [address] Observed: 02/04/2018 Status: F Source: [facility] 12:00 AM SYSTEM REPOSITORY [id number] [facility] PATHOLOGY AND LABORATORY MEDICINE [address] [place] [id number] FINAL SURGICAL PATHOLOGY REPORT NAME: DONAL JOHNSON : 1950 67 Y F GUY NO.: [id number] LOCATION: 1SPO PROCEDURE 02/04/2018 DATE: SURGEON: YOLANDA ASHLEY MD RECEIVED 02/06/2018 DATE: ATTENDING: YOLANDA ASHLEY MD REPORT DATE: 02/07/2018 COPIES TO: DIAGNOSIS: SKIN, RIGHT POSTERIOR SHOULDER, PUNCH (DIF) - NEGATIVE DIRECT IMMUNOFLUORESCENCE Comment: Direct antibody localization demonstrates no evidence of immunoreactivity for immunoglobulins IgG, IgM, IgA, complement C3, or fibrinogen on sections of frozen skin. JAW/JAW <Sign Out Dr. Rogers> BEN STEINER M.D. CLINICAL INFORMATION: L30.9, bullous pemphigoid SPECIMEN: SKIN GROSS DESCRIPTION: Skin right posterior shoulder Received in polytransport buffer is a core of skin and underlying tissue approximately 0.3 cm in depth and diameter. The specimen is entirely submitted for direct immunofluorescence. (1 ns, 1) JCK/MANFRED Disclaimer: The following statement applies to all immunohistochemistry, in situ hybridization, molecular studies, and immunofluorescence testing. The use of one or more reagents in the above tests is regulated as an analyte specific reagent (ASR). These tests were developed and their performance characteristics determined by the clinical laboratories of [facility]. They have not been cleared by the US Food and Drug Administration (FDA). The FDA has determined that such clearance or approval is not necessary. All the above immunostains were performed on paraffin embedded tissue. Appropriate positive and negative controls (where applicable) were run in parallel with the patient's specimen; these controls showed expected staining pattern, with acceptable intensity of staining. Immunohistochemical assays have not been validated on decalcified tissues. Results should be interpreted with caution given the raised possibility of false negativity on decalcified specimens. Professional Performing Location: [address] [address]. 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 Assistive Equipment: none Route: Heavy Traffic (40-45mph, multi lanes ). This therapist had her drive on mostly residential and [address] while some multiple [address]ieu roads as she does drive in [facility]. Avoided the interstate as she does not drive there. A total of 10.8 [address] Road Conditions: clear Weather Conditions: light rain at times Medical Diagnosis: CVA Demographics: Age: 67Y Gender: Female OBJECTIVE / OCCUPATIONAL PERFORMANCE Stationary Assessment - Driving Range Ratings Skills Transfer In and Out Average Load Mobility Device Not tested Fasten Seatbelt Average Secondary Controls Average Primary Controls Average Accel/Decelerate Average Braking Average Backing up Average Serpentine Curves Average Figure 8 Not tested Maneuverability Not tested no problems observed with Pilar orienting to pedicab driver evaluation vehicle Light (25mph) - Moderate Traffic(35mph) Ratings [facility] PATIENT NAME: DONAL JOHNSON Dr. Uriarte MEDICAL REC #: [id number] [place] [id number] ADMIT DATE: SERVICE DATE: 10/10/17 Occupational Therapy Assessment ATTENDING PHY: Jamia Lind CNP Skills Straight Aways Average Right Turns Average Left Turns Average Uses Turn Signals Average Stopsigns/Right away Average Speed Control Average 3 Point Turn/Backing Average Signs/Markings Average Curves/Merlin Average Un/Protected Traffic Lights LTurn Average On Red Lights Traffic Lights RTurn Average Following Distance Average Yielding R Away Average VisualScan/Mirrors Average Driving/Parking Shopping Parking Lot Average Pulling into Traffic Average she was able to demonstrated consistent vehicle control throughout light traffic driving Heavy Traffic (40 - 45 mph Multi-lanes) Ratings Skills Speed Control Average Mathieu Usage Average Changing Lanes Average Checking Blind Spots Average Space Cushion Average L Turns Above Challenge Average she was consistent with use of defensive driving techniques throughout the drive Highway (55 mph) did not complete highway driving while she verbalized that she no longer does highway driving while lives very rurally and only drives into [place] on occasion General Analysis Ratings Skills Follow Directions Average Atten/Concentration Average [facility] PATIENT NAME: DONAL JOHNSON [address] Uriarte MEDICAL REC #: [id number] [place] [address] ADMIT DATE: SERVICE DATE: 10/10/17 Occupational Therapy Assessment ATTENDING PHY: Jamia Lind CNP Anticipation Average Road Courtesy Average Safety Awareness Average Judgment Average Confidence Average She demonstrated the ability to follow verbal instructions consistently while using defensive driving techniques without requireing v/c's for same. And despite not being familiar with the area that she was driving in, she demonstrated no problems during the assessment. Perception of Driving Performance: She indicated that she feels she is capable of returning to doing the driving she wants to do while mainly to her work and back home based on how she is doing currently. Psychosocial: Within normal limits Interventions: Medical Logistics Specialist Training: refer to details in this report Education: The patient's preferred learning method is: Explanation Barriers to Learning: No barriers Learning Needs: Safety. Functional activities/mobility. Education Provided: Safety issues and interventions. Driving. Safety. Audience: Patient and significant other. Mode: Explanation. Printed material provided. Response: Applied knowledge. Verbalized understanding. Demonstrated skill. ASSESSMENT Support Structure: Support structure is good. Family member willing to assist patient. Response to Evaluation: The session was tolerated well, as evidenced by: no complaints or concerns indicated PLAN Necessity: Patient does not require outpatient therapy in order to return to premorbid environment (or reside in new living environment). Patient does not require outpatient therapy in order to reduce Activities of Daily Living or Instrumental Activities of Daily Living assistance to a premorbid level. Recommended Consults: Opthamology. The patient has been instructed to contact the clinic if any questions or problems should arise. [facility] PATIENT NAME: DONAL JOHNSON [address] Uriarte MEDICAL REC #: [id number] [place] [address] ADMIT DATE: SERVICE DATE: 10/10/17 Occupational Therapy Assessment ATTENDING LOREN: Jamia Lind CNP Visit Number: Today's visit is number 1 Services: Total Billed: 60 minutes (Timed: 60, Untimed: 0) 60.00 Timed: [78987] Medical Logistics Specialist Training EA 15 min. 0.00 Untimed: [07767] OT-EVALUATION MOD COMPLEX Signed by: MARTHA DEL RIO, OT/L, CDRS, CDI/PD 10/15/2017 08:22:43 [facility] PATIENT NAME: DONAL JOHNSON [address] 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 10/12/2017 infarction affecting left non-dominant side 3 R26.8 Other abnormalities of gait and mobility 10/12/2017 Initial Evaluation Date: 10/10/17 Referring Clinician: Jamia Lind Medical Diagnosis: CVA Date of Onset: 04/01/17 Past Medical History: anxiety issues, appendectomy, colitis, tubal, recent stroke, smoker, HTN, hyperlipidemia, pulmonary issues Current Medications: aspirin, Citalopram, Lisinopril, Atorvastatin, Clopidogrel, Metoprolol, Benadryl, Advair Demographics: Age: 67Y Gender: Female Primary Language: Peruvian Preferred Language: Peruvian OCCUPATIONAL PROFILE AND HISTORY Basic ADLs: she is independent with all self care Instrumental ADLs: she lives with her and while he does the vacuuming and laundry while she has returned to dusting, meal preparation, finances and medications; also does mowing Work/Leisure/Education: she completed 12 years of formal education; 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 Time Since Last Driven: 04/01/17 Medical Logistics Specialist's License Expiration Date: 06/29/19 State of: [place]; no restrictions Type of Vehicle: [employer] [place] Type of Insurance: [employer] Type of Driving Anticipated: Local Daytime she avoids driving at night and on the highway/long distances Reason for Driving is: [place] Work [facility] PATIENT NAME: DONAL JOHNSON [address] Uriarte MEDICAL REC #: [id number] [place] [address] ADMIT DATE: SERVICE DATE: 10/10/17 Occupational Therapy Assessment ATTENDING PHY: Jamia Lind CNP Social/Leisure Home management History of Accidents: Patient does not have a history of accidents. Traffic Violations: Patient does not have any traffic violations. Patient Report: She indicated that she does local day driving only while mainly going to and from work while about 8-9 miles into town generally speaking; does other driving. Patient/Caregiver Goals: Patient's functional goals: to return to providing for her own transportation needs Pain: Patient currently without complaints of pain. 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 OBJECTIVE / OCCUPATIONAL PERFORMANCE General Observation: Pilar was pleasant and cooperative throughout session. Her came with her and appeared to be very supportive while willing to assist her as needed. Visual/Perceptual Screening: Correctve Lenses: Patient wears corrective lenses. Date of Last Eye Exam: 2012; glasses for reading only (recommending that she have formal eye exam in the near future since it has been 5 years since last time) Reading Skills: Higher level. Stereo - Optical Test: Far Acuity: 20/ 30 Glare far acuity R-20/40-1, L-20/30; SEVERE DECREASE FOR B CONTRAST SENSITIVITY; functional for color and stereo depth perception skills, B peripheral/nasal visual parada. Oculomotor Skills: LEFT EYE RANGE OF MOTION: Left eye has full range of motion RIGHT EYE RANGE OF MOTION: Right eye has full range of motion BOTH EYE RANGE OF MOTION: Both eyes have full range of motion DIPLOPIA ON GAZE TO: Superior CONVERGENCE: Normal (6-8) LEFT FIELD SACCADES: Direct Fixation RIGHT FIELD SACCADES: Direct Fixation PURSUITS: Sustained Fixation VISUAL SCANNING: . Motor Free Visual Perception Test: Raw Score: 34 /36. Processing Time: 4.5 seconds. [facility] PATIENT NAME: DONAL JOHNSON [address] [facility] [address] Uriarte MEDICAL REC #: [id number] [place] [address] ADMIT DATE: SERVICE DATE: 10/10/17 Occupational Therapy Assessment ATTENDING PHY: Jamia Lind CORPORATE SAFETY MANAGER Norms: 50 - 69, 3.0 - 5.4 sec. COGNITION Screening Orientation: No impairment detected (5/5 correct orientation reponses). Attention: Freeland making test Part B: 99 seconds - possible slowness. Functional performance on this alternating visual attention task <180 sec. Safety/Judgment/Problem Solving: No impairment detected (identifies 3/3 appropriate solutions for emergency responses). Memory: score of 0 on Short Blessed Cognitive screen which is in normal range Also noted during the evaluation: She was able to recall 6 digits for auditory attention skills; able to recall 4/4 recent past presidents; Clock drawing score of 6/7 (normal >5/7) Physical Assessment Range of Motion: Within functional limits. Strength: Within functional limits. Sensation: Within functional limits. Coordination: Within functional limits. She still has ataxia in LLE while more pronounced when she is fatigued. Rapid Alternating Movement: Within functional limits. Sitting Balance: Within functional limits. Head/Neck Control: Impaired. Slight decrease for rotation to L. Endurance: Within functional limits. She is aware that she has decreased endurance in general but feels it continues to improve. Mobility: Within functional limits. She ambulates with asymmetrical gait due to ataxia in LLE while reports ongoing issues with her balance although no recent falls but has to move more slowly to avoid loss of balance. Hand Dominance: Right. Handicap Placard: Patient does not have a handicap placard. Road Sign Recognition/Rules of Driving: Pass. 95% correct Simulated Reaction - Braking Distance (Norms 60 ft): Reaction Distance: Average = 55 ft. Above Average. R foot only pedal operation method Family/Friend Interview/Survey: her indicated that he is willing and able to continue to assist her as needed while also will continue to monitor her overall level of function including with driving skills Projected Adaptive Equipment Needs: none Psychosocial: Within normal limits Interventions: Evaluation HIGH Complexity Self Care/Home Management: refer to details in this report Pain Reassessment: No pain at onset or during treatment, which does not warrant [facility] PATIENT NAME: DONAL JOHNSON [address] Uriarte MEDICAL REC #: [id number] [place] [address] ADMIT DATE: SERVICE DATE: 10/10/17 Occupational Therapy Assessment ATTENDING PHY: Jamia Lind CORPORATE SAFETY MANAGER reassessment. Education: The patient's preferred learning method is: Explanation Barriers to Learning: No barriers Learning Needs: Plan of care. Safety. Functional activities/mobility. Education Provided: Plan of care. Safety issues and interventions. Driving. Safety. Audience: Patient and significant other. Mode: Explanation. Response: Applied knowledge. Verbalized understanding. Demonstrated skill. ASSESSMENT Activity/Participation Problem List and Goals: Functional Impairment: Other Primary Modifier: D1088-EA (at least 20%, but less than 40% impaired, limited, or restricted) Goal: Patient will be assisted with increased independence with functional community mobility skills as appropriate. Goal Modifier: N1712-YY (at least 1%, but less than 20% impaired, limited or restricted) Discharge Status for Other Primary Functional Limitation: Resolved Functional Impairment Discharge Modifier: K9603-LP (at least 1%, but less than 20% impaired, limited or restricted) Support Structure: Support structure is good. Family member willing to assist patient. Response to Evaluation: The session was tolerated well, as evidenced by: no complaints or concerns PLAN Necessity: Patient requires outpatient therapy in order to reduce Activities of Daily Living or Instrumental Activities of Daily Living assistance to a premorbid level. Patient requires occupational therapy plan in order to function in community. In order to complete the functional task portion of this assessment. Recommended Consults: Opthamology. The patient has been instructed to contact the clinic if any questions or problems should arise. Visit Number: Today's visit is number 1 [facility] PATIENT NAME: DONAL JOHNSON [address] Uriarte MEDICAL REC #: [id number] [place] [address] ADMIT DATE: SERVICE DATE: 10/10/17 Occupational Therapy Assessment ATTENDING PHY: Jamia Lind CNP Services: Total Billed: 90 minutes (Timed: 30, Untimed: 60) 30.00 Timed: [80397] ADL-HOME MANAGEMENT EA 15 MIN 60.00 Untimed: [73483] OT-EVALUATION HIGH COMPLEX 0.00 Untimed: [G8990] OT-Other PT/OT Primary Functional Limitation-CJ 0.00 Untimed: [G8991] OV-Ygxd-Kmqhu PT/OT Primary Functional Limitation-CI 0.00 Untimed: [G8992] OT-DC-Other PT/OT Primary Functional Limitation-CI Signed by: MARTHA DEL RIO, WALE/Martin, CDRS, CDI/PD 10/12/2017 10:16:05 [facility] PATIENT NAME: DONAL JOHNSON [facility] [address] Uriarte MEDICAL REC #: [id number] [place] [address] ADMIT DATE: SERVICE DATE: 10/10/17 Occupational Therapy Assessment ATTENDING CHRISTENY: Jamia Lind CNP Observed: 10/10/2017 Status: UNK Source: [facility] 11:00 AM [facility] Occupational Therapy Community Mobility and IADL Report Performance Skills Evaluation Date: 10/10/[address] Driving Assessment: 10/10/17 Demographics: Age: 67Y Gender: Female Summary of Results: (see attached report(s) for details) Strengths: Pilar is independent with self care as well as the home management tasks sharing the same with her who is very supportive; 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 which she previously had done prior to her stroke and reports that it is going well; she has an excellent driving history; clinically she demonstrated functional vision as is required by [facility] for far acuity and visual parada, oculmotor skills, cognition as screened, physical skills needed for driving, knowledge of road rules/signs, and above average simulated brake reaction distance using R foot pedal operation method; during the behind the wheel portion, she demonstrated excellent overall skills while driving on similar roads as she would typically drive on around where she lives while no suggestions for improvements made. 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 Recommendations: Patient may resume driving with the following recommendations: Physician approval. Pilar's physician/nurse practioner should continue to monitor her overall medical status and assure that she maintains her current level of function for ongoing pursuit of safe operation of motor vehicle. If future concerns arise, recommend that she be seen for reassessment of her skills at that time. Restrictions. No interstate highway driving (she previously avoided the same), no long distance driving unless assisting other licensed pedicab driver, avoid driving when not feeling well, avoid driving when inclement/severe weather conditions, family should continue to monitor overall level of function including with driving skills while information will be forwarded regarding doing the same. This therapist will provide Pilar with information regarding safe driivng skills, crash avoidance, tips for monitoring driving, and when to stop driving for her reference. Vehicle and Equipment Needs: N/A [facility] PATIENT NAME: DONAL JOHNSON [address] Uriarte MEDICAL REC #: [id number] [place] [id number] ADMIT DATE: SERVICE DATE: 10/10/17 Occupational Therapy Assessment ATTENDING LOREN: Jamia Lind CNP Additional Comments: Based on Pilar's overall performance throughout all of this assessment, this therapist feels confident in recommending that she is able to return to safe operation of a motor vehicle while following the restrictions in this report. This therapist expects that Pilar poses minimal risk of being involved in a crash which is consistent with the majority of all drivers on the road with this therapist feeling comfortable to share the road with her. Date: 10/18/17 Occupational Therapist/Medical Logistics Specialist [employer]ator Gl[employer]ier signature Please Note: The results and recommendations included in the Medical Logistics Specialist Evaluation Report are based on the patient's performance during the period of the evaluation and should not be relied on as absolute predictors of future performance. The conclusions and recommendations in this report are based, in part, upon the medical information available at the time. If subsequent to the issuance of this report, the patient's medical status changes in such a manner that may compromise the patient's ability as a pedicab driver, this report can longer be relied upon as valid. If the patient's physical and mental status remains the same as during the evaluation period, the recommendations in the report should be considered valid for 6 months. Beyond that time, a re - evaluation may be necessary. Signed by: MARTHA DEL RIO, OT/L, CDRS, CDI/PD 10/22/2017 08:43:11 [facility] PATIENT NAME: DONAL JOHNSON [address]arte MEDICAL REC #: [id number] [place] [address] ADMIT DATE: SERVICE DATE: 10/10/17 Occupational Therapy Assessment ATTENDING PHY: Jamia Lind CNP PT D/C SUMMARY (1) Observed: 08/24/2017 Status: F Source: [facility] 8:35 AM [facility] REPOSITORY [facility] Physical Therapy [facility] [place], [place] [address] Fax REHABILITATION SERVICES DISCHARGE SUMMARY MR#: [id number] Acct: [id number] Name: DONAL JOHNSON Rep #: [id number] : 1950 67 From: Dario White PT, Cert. T, OCS Referring Dr.: DAYANNA Lind Status: REG RCR Insurance: [employer] MED[employer]ARE PPO SELF PAY INSURANCE HP - PT D/C Summary It has been my pleasure to treat DONAL JOHNSON under orders from Jamia Lind NP-C, for the diagnosis of CVA for a total of 27 visit(s). Discharge Date: 08/21/17 Please see the following information for a summary of their discharge status. - Subjective Subjective: Doing well ,walking in home gait without cane.But uses cane for extended distances with gait . 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 - Pain Left Knee Pain Intensity (Out of 10): 0 - Overall Improvement % Improvement: 85 - Objective Objective/Function: POSTURE: mild foward posture. GAIT: ambulated with no device independant 500 feet in PT with improved motor control. DYNAMIC: good - level. MMT: quads/hams /hams 4/5,ankle 4/5. STAIRS: alternating ascend/descening stairs with rail. NEURO: improved motor control - Goals Goal 1:: Patient to be Independant with HEP Goal Progress: Goal Met Goal 2:: Patient to ambulate with least restrictive device community distance with improve quality of gait with heel strike toe off with Mod independant . Goal Progress: Progressing Goal 3:: Patient to improve dynamic balance with least restrictive device good- and improve motor control left leg Goal Progress: Goal Met Goal 4:: Patient to increase strength hip 4/5 to improve function with walking and ADL'S to improve control with gait Goal Progress: Goal Met Goal 5:: Patient improve score on functional gait assessment to 19-20 Goal Progress: Goal Met Goal 6:: ASECEND/DESCEND 12 STEPS WITH SUPERVSION/MOD INDEPENDANT WITH RAIL Goal Progress: Goal Met - Plan Plan: D/C TO HEP - D/C Information Discharge Comments: HEP If there are questions or concerns regarding this patient's physical therapy, please feel free to call me at [phone]. Thank you for the referral of this patient. Sincerely, Dario White PT, <Electronically signed by Dario White PT, Cert. MDT, OCS> 08/24/17 0835 CC: DAYANNA Lind; Alix Bonner DO LACEY Signed CARDIOLOGY VISIT Observed: 08/17/2017 Status: F Source: [facility] REPORT 1:05 PM [facility] REPOSITORY [facility] [address] [place] [address] OFFICE VISIT Date of Service: 08/16/17 MR#: [id number] Acct: [id number] Name: DONAL JOHNSON Rep #: [id number] : 1950 Provider: Dorothea Goodwin Age/Sex: 67/F Location: [facility] Status: Signed HPI HPI Details: DONAL JOHNSON, is a 67 F who presents to the office today for a cardiovascular follow-up. Patient does have a history of CVA in April 2016. She did undergo a 30 day event monitor which she did have one asymptomatic wide-complex tachycardia that lasted approximately 8-10 beats. Patient states that she did have one episode of palpitations on . She states it lasted approximately 30 seconds. She has not had any episodes since starting her metoprolol. She does not have any lightheadedness or dizziness. She has not had any episodes of syncope. She does not have any chest discomfort. She does not have any worsening shortness of breath. Intake Vital Signs08/16/17 Height 5 ft 3 in 08/16/17 Weight: 129 lb 08/16/17 Body Mass Index (BMI) 22.8 08/16/17 Blood Pressure 135/80 Intake Visit Reasons: 3 M Hired Help Required: No Is patient in pain?: No Allergies No Known Allergies Allergy (Verified 08/16/17 11:32) Medications Fluticasone/Salmeterol [Advair 250-50 Diskus] 1 puff PO BID 04/03/17 [History Confirmed 08/16/17] Albuterol Aerosols [Ventolin Aerosols] 2.5 mg INHALATION Q2H PRN PRN vial.neb. 04/05/17 [Rx Confirmed 08/16/17] Aspirin [Aspirin, Baby] 81 mg PO DAILY@0800 tab.chew 04/05/17 [Rx Confirmed 08/16/17] Acetaminophen [Tylenol Tablet] 650 mg PO Q6H PRN PRN tab 04/19/17 [Rx Confirmed 08/16/17] Atorvastatin Calcium [Lipitor] 80 mg PO DAILY #30 tab 04/19/17 [Rx Confirmed 08/16/17] Citalopram [Celexa] 20 mg PO DAILY #30 tab 04/19/17 [Rx Confirmed 08/16/17] Clopidogrel Bisulfate [Plavix] 75 mg PO DAILY #30 tab 04/19/17 [Rx Confirmed 08/16/17] Lisinopril [Zestril] 40 mg PO DAILY #30 tab 04/19/17 [Rx Confirmed 08/16/17] metoprolol succinate ER 50 mg tablet,extended release 24 hr 50 mg PO QDAY #90 tab 05/16/17 [Rx Confirmed 08/16/17] [facility] Medical History Secondary pulmonary arterial hypertension (Chronic) Nicotine dependence (Chronic) CVA (cerebral vascular accident) (Acute) Ventricular tachycardia (Acute) Left leg weakness (Acute) HTN (hypertension) (Chronic) COPD (chronic obstructive pulmonary disease) (Chronic) Bronchitis (Chronic) Crohn disease (Chronic) History of carpal tunnel release (Chronic) Lupus (Chronic) Psoriasis (Chronic) left sided paresthesias (Inactive) Surgical History History of appendectomy (Chronic) History of blepharoplasty (Chronic) History of cataract surgery (Chronic) History of tubal ligation (Chronic) History of appendectomy (Inactive) Status post blepharoplasty of both eyes (Inactive) Family History Father Hypertension Lung cancer Mother Lupus Sister Crohn's disease Social History Smoking Status: Heavy Smoker (>10/day) ROS Const Const: Negative for weakness, fatigue, fever(s) or headache(s) Eyes Eyes: Negative for blind spots, loss of peripheral vision or transient loss of vision ENT ENT: Negative for headache(s), dizziness, tinnitus or Nosebleed/epistaxis Cardio Chest Pain: No Palpitations: Yes Edema: None Muscle aches with walking: None Resp Respiratory: Negative for SOB with activity, SOB at rest, SOB orthopnea\SOB lying down or Cough GI GI: Negative nausea, vomiting, heartburn or vomiting blood/hematemesis : Negative for hematuria Musc Musc: Negative for muscle aches/ myalgia Neuro Neuro: Negative for weakness, headache(s), dizziness, near syncope, syncope, lightheadedness or orthostatic symptoms Pro Hematologic/Lymphatic: Negative for easy bleeding Endo Endo: Negative for fatigue Cardiology Exam Const Appearance: cooperative, no acute distress and well developed Orientation: alert, awake and oriented x3 Head Head: normocephalic and atraumatic Mouth: moist mucous membranes Eyes General: appearance normal, both eyes and all related structures Conjunctivae: conjunctivae normal Pupils: PERRL EOM: EOM intact bilaterally Neck Neck: normal visual inspection, no lymphadenopathy and no JVD Carotids: Negative bruit Neck Mass: Negative Neck mass Chest Chest inspection: normal inspection of the chest and symmetric chest movement Auscultation: Bilateral: Clear to Auscultation Cardio Palpation: normal PMI Rate: regular rate Rhythm: regular rhythm Heart sounds: S1 normal and S2 normal; negative rub, gallop or murmur GI GI: normal to inspection, soft, no hepatosplenomegaly and bowel sounds present; negative tender Neuro General: alert, awake, oriented x3, CN's II-XI intact bilaterally and moves all extremities Extremities Pulses: Normal: Right Posterior Tibial Pulse, Left Posterior Tibial Pulse, Right Radial Pulse, Left Radial Pulse Lower Extremity Edema: None: Bilateral Psych Psychological: normal affect Assessment AND Plan 1. Palpitations R00.2 Plan - TEO Chadwick With patient's history of a CVA and wide-complex tachycardia that was noted on her 30 day event monitor concerned that these palpitations could also be related to paroxysmal atrial fibrillation as her left atrium is mildly dilated. Would like to have a loop recorder placed for continued evaluation of arrhythmias. Patient is in agreement with this. She will be scheduled in the near future to undergo teaching and then scheduled for the procedure. 2. Essential hypertension I10 Plan - TEO Chadwick Blood pressure is well controlled on current medications, we do not recommend any changes at this time. Plan Detail Additional Comments - TEO Chadwick The above patient was discussed with Dr. Loco, he agrees with plan of care. Thank you for allowing us to participate in patient's plan of care, if you have any questions please do not hesitate to call. This note was generated using a voice recognition system and there may be incorrect words, spelling or punctuation errors that were not noted when reviewing the office note prior to saving. 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) Coding Level of Care Code Off vis,est,level 4 Diagnoses Palpitations R00.2 Essential hypertension I10 Hypertension type: essential hypertension Coding Level of Care Code Off vis,est,level 4 Diagnoses Palpitations R00.2 Essential hypertension I10 Hypertension type: essential hypertension 08/16/17 1548 <Electronically signed by Dorothea BRUCE> Date Dorothea BRUCE 08/17/17 1305<Electronically signed by Imtiaz Loco MD> Cosigner Signature: Date (if applicable) Imtiaz Loco MD CC: Alix Bonner DO PACEMAKER CHECK Observed: 08/17/2017 Status: F Source: LEWIS 1:05 PM [facility] REPOSITORY [facility] [address] [place] [address] Pacemaker Check Date of Service: 08/17/17925 MR#: [id number] Acct: [id number] Name: DONAL JOHNSON Rep #: [id number] : 1950 From: Erika Latham Age/Sex: 67/F Location: [facility] Status: Signed Comments Summary Comments: Implantable loop Recorder instructions written and verbal given to pt and spouse. Pt having labs drawn today. All questions answered. Pt scheduled for 08/27/17 @ 10 am. Device Device Date Interviewed: 08/17/17 Follow-up Location: in office Billing Codes Nurse, Teaching, Wound Ck (no charge): Yes Assessment AND Plan Problems 1. CVA (cerebral vascular accident) I63.9 04/03/2017 Acute infarct involving right thalamic and posterior limb of right internal capsule 2. Ventricular tachycardia I47.2 18 beat run of VT per 30 day event monitor (ord by Dr. Rodriguez in neurology: Dr. Loco monitoring) 08/17/17 1005 <Electronically signed by Erika Latham > Date Erika Latham 08/17/17 1306<Electronically signed by Imtiaz Loco MD> Cosigner Signature: Date (if applicable) Imtiaz Loco MD CC: CBC-COMPLETE BLOOD CNT Collected: 08/17/2017 Status: F Source: KARLA NO DIFF 9:29 AM [facility] REPOSITORY TYPE CODE TESTS RESULT OUT OF RANGE REFERENCE UNITS LAB L100.1000 4.4-11.0 K/mm3 Normal WBC 6.6 LAB L100.1200 4.2-5.4 M/mm3 Low RBC 4.13 LAB L100.1300 12.0-15.0 g/dl Normal HGB 12.3 LAB L100.1400 37-47 % Normal HCT 38.3 LAB L100.1500 81-99 fL Normal MCV 92.7 LAB L100.1600 27.0-32.0 pg Normal MCH 29.8 LAB L100.1700 32-36 g/gl Normal MCHC 32.1 LAB L100.1810 11.6-14.6 % Normal RDW CV 13.7 LAB L100.1820 35.1-43.9 fl High RDW SD 46.2 LAB L100.1900 150-450 K/mm3 Normal PLT 287 LAB L100.2000 6.2-12.0 fl Normal MPV 9.5 Performed By: #### L100.0500, L500.2500 #### [facility] [address] [place], [address] BASIC METABOLIC Collected: 08/17/2017 Status: F Source: KARLA PROFILE (BMP) 9:29 AM [facility] REPOSITORY TYPE CODE TESTS RESULT OUT OF RANGE REFERENCE UNITS LAB L501.0100 74-106 mg/dL Normal GLU 92 Result Comment: Please note revised GLUCOSE reference range effective 2017. LAB L501.1000 7-18 mg/dL High BUN 21 LAB L501.1100 0.55-1.02 mg/dL High CREAT,SERUM 1.19 Result Comment: The validity of the calculated GFR AND GFRAA in patients over 70 years has not been determined. Clinical correlation is essential. LAB L501.1110 >60 mL/min Low EST GFR 48 Result Comment: Non- GFR Calc LAB L501.1115 >60 mL/min Low EST GFR - AA 59 Result Comment: GFR Calc LAB L501.1300 10-20 RATIO Normal BUN/CRE 17.6 LAB L501.2200 8.5-10.1 mg/dL CA Normal 8.9 LAB L501.5300 136-145 mmol/L NA Normal 137 LAB L501.5600 3.5-5.1 mmol/L K Normal 4.1 LAB L501.5900 98-107 mmol/L CL Normal 106 LAB L501.6100 21.0-32.0 mmol/L Normal CO2 24.0 LAB L501.6200 5-15 Normal GAP 7 Performed By: #### L100.0500, L500.2500 #### [facility] [address] [place], [place], [address] RE-EVALUATION - PT (1) Observed: 07/26/2017 Status: F Source: LEWIS 9:20 AM [facility] REPOSITORY [facility] [address] [place] [address] Fax REEVALUATION / MEDICARE RECERTIFICATION PHYSICAL THERAPY MR#: [id number] Acct: [id number] Name: DONAL JOHNSON Rep #: [id number] : 1950 67 From: Dario White PT, Cert. MDT, OCS Referring DrDomenico: DAYANNA Lind Status: REG RCR Insurance: [employer] PPO SELF PAY INSURANCE MICHAEL Wise, It has been my pleasure to treat DONAL JOHNSON over the last 23 visits for CVA. Please see the progress note below for an update on the physical therapy plan of care! Subjective: Patient fell off bar chair..twisted knee. Patient uses more safe with SBCQ. Denies paathesia. Independant with ADL'S ,spouse assist with cooking,cleaning. Patient amabulated with cane outside. GOAL RTW ,DRIVE WALK WITH OUT CANE. Objective/Function: POSTURE: mild foward posture. GAIT: ambulates with SBQC Independant at community distances with decrease motor conrol left leg min/mod . Ambulates with SBA/supervsion level surface ,but unlevel surfaces such as grass requires CGA but with decrease balance and less motor control left foot. MMT:quads/hams/hip 4/5 except left hip abd/flexion 4-/5,ankle,4/5. MOTOR CONTROL: decrease control ataxia mild left side. DYNAMIC BALANCE: good- with cane. STAIRS : aecend/desecend 12 steps with rail with and cane one steps at a time Plan Plan: REQUESTING 8 MORE VISITS. PATIENT WILL BENIFIT FROM SKILLED PT DUE DUE TO BALANCE DEFICITS ,DECREASE MOTOR CONTROL LEFT SIDE,REQUIRES USE OF SBQC WITH COMMUNITY DISTANCES ,UNABLE TO RTW ,DIFFICULTY WITH ADL'S WITH COOKING,CLEANING-HOUSEWORK Goals Goal 1:: Patient to be Independant with HEP Goal Time Frame: 6-8 Weeks Goal Progress: Progressing Goal 2:: Patient to ambulate with least restrictive device community distance with improve quality of gait with heel strike toe off with Mod independant . Goal Time Frame: 6-8 Weeks Goal Progress: Progressing Goal 3:: Patient to improve dynamic balance with least restrictive device good- and improve motor control left leg Goal Time Frame: 6-8 Weeks Goal Progress: Progressing Goal 4:: Patient to increase strength hip 4/5 to improve function with walking and ADL'S to improve control with gait Goal Time Frame: 6-8 Weeks Goal Progress: Progressing Goal 5:: Patient improve score on functional gait assessment to 19-20 Goal Time Frame: 6-8 Weeks Goal Progress: Progressing Goal 6:: ASECEND/DESCEND 12 STEPS WITH SUPERVSION/MOD INDEPENDANT WITH RAIL Goal Time Frame: 6-8 Weeks Goal Progress: Progressing Anticipated Interventions Patient/Client Instruction: Educate patient on: Condition, Plan of Care For the Purpose of:: To decrease pain, To improve muscle performance and motor function, To improve ability to perform ADL's, To increase tolerance to activity/condition/position, To improve performance and independence with ADL's, To improve ability of physical actions for home/community/work/leisure, To improve gait and locomotor functions, To increase flexibility/ROM, To improve endurance, To improve balance, To improve safety, To improve tolerance to ADL's Therapeutic Exercise to Include: Strength training, Endurance training, Balance training, Coordination, Gait and locomotor training Comment: LE For the Purpose of:: To improve muscle performance and motor function, To improve ability to perform ADL's, To increase tolerance to activity/condition/position, To improve performance and independence with ADL's, To decrease level of supervision to perform tasks, To improve gait and locomotor functions, To improve endurance, To improve balance, To improve safety with gait, To assume or resume ADL's, To improve tolerance to ADL's Functional Training to Include: Gait training For the Purpose of:: To improve muscle performance and motor function, To improve ability to perform ADL's, To improve performance and independence with ADL's, To decrease level of supervision to perform tasks, To improve gait and locomotor functions, To improve safety with gait Please do not hesitate to contact me at [phone] by phone or if you have questions or concerns regarding this new plan of care! Sincerely, Dario White PT, <Electronically signed by Dario White PT, Cert. VIRGEN, OCS> 07/26/17919 CC: DAYANNA Lind; Alix Bonner DO LACEY Signed For Medicare only, by signing this I certify the plan of care. Physicians Signature Date RE-EVALUATION - PT (1) Observed: 06/26/2017 Status: F Source: KARLA 3:02 PM [facility] REPOSITORY [facility] [place] [address] [place] [address] Fax REEVALUATION / MEDICARE RECERTIFICATION PHYSICAL THERAPY MR#: [id number] Acct: [id number] Name: DONAL JOHNSON Rep #: [id number] : 1950 66 From: Cert. VIRGEN [place] PT, OCS Referring Dr.: DAYANNA Lind Status: REG RCR Insurance: [employer] PPO SELF PAY INSURANCE MICHAEL Wise, It has been my pleasure to treat DONAL JOHNSON over the last 17 visits for CVA. Please see the progress note below for an update on the physical therapy plan of care! Subjective: Doing better ,using quad cane in the house .No falls ,denies pain.Independant with bathing in tube ,dressing. does houswork and cleaning. Discussed with patient about advance to can. Denies parathesia/tingling. Objective/Function: POSTURE: mild foward posture ,posterior pelvic tilt. NEURO: denies parathesia/tingling,hyperrflexia achilles and patella,mild/ mod ataxia left leg. BALANCE: static good-,standing dynamic fair+. CATSIB: 95score. FUNCTIONAL GAIT ASSESSMENT: 10. MMT: 4/5 BILATERAL QUADSS/HAMS ,HIP FLEX/ABD 4-/5 ,ANKLE 4/5. GAIT: ambulated with straight cane with SBA/supervision mild ataxia left leg control. 500 feet, then no device CGA/SBA 400 feet with decrease control left leg with ataxia with heel strike toe off. STAIRS: one step at a time with with cane rail with SBA Plan Plan: REGQUESTING 12 MORE VISITS. PATIENT TO BENIFIT FROM SKIKLLED PT DUE TO IMPAIRED GAIT WITHOUT DEVICE,BALANACE ,MILD/MOD ATAXIA LEFT LEG IN ORDER TO RETURN TO PRIOR LEVEL OF Independant LEVEL WITH HOUSEWORK TASKS AND JOB DEMANDS. ALSO ,AMBULATE SAFE WITHOUT DEVICE AT COMMUNITY DISTANCES Goals Goal 1:: Patient to be Independant with HEP Goal Time Frame: 6-8 Weeks Goal Progress: Progressing Goal 2:: Patient to ambulate with least restrictive device community distance with improve quality of gait with heel strike toe off with Mod independant . Goal Time Frame: 6-8 Weeks Goal Progress: Progressing Goal 3:: Patient to improve dynamic balance with least restrictive device good- and improve motor control left leg Goal Time Frame: 6-8 Weeks Goal Progress: Progressing Goal 4:: Patient to increase strength hip 4/5 to improve function with walking and ADL'S to improve control with gait Goal Time Frame: 6-8 Weeks Goal Progress: Progressing Goal 5:: Patient improve score on functional gait assessment to 19-20 Goal Time Frame: 6-8 Weeks Goal Progress: Progressing Goal 6:: ASECEND/DESCEND 12 STEPS WITH SUPERVSION/MOD INDEPENDANT WITH RAIL Goal Time Frame: 6-8 Weeks Goal Progress: Progressing Anticipated Interventions Patient/Client Instruction: Educate patient on: Condition, Plan of Care For the Purpose of:: To decrease pain, To improve muscle performance and motor function, To improve ability to perform ADL's, To increase tolerance to activity/condition/position, To improve performance and independence with ADL's, To improve ability of physical actions for home/community/work/leisure, To improve gait and locomotor functions, To increase flexibility/ROM, To improve endurance, To improve balance, To improve safety, To improve tolerance to ADL's Therapeutic Exercise to Include: Strength training, Endurance training, Balance training, Coordination, Gait and locomotor training Comment: LE For the Purpose of:: To improve muscle performance and motor function, To improve ability to perform ADL's, To increase tolerance to activity/condition/position, To improve performance and independence with ADL's, To decrease level of supervision to perform tasks, To improve gait and locomotor functions, To improve endurance, To improve balance, To improve safety with gait, To assume or resume ADL's, To improve tolerance to ADL's Functional Training to Include: Gait training For the Purpose of:: To improve muscle performance and motor function, To improve ability to perform ADL's, To improve performance and independence with ADL's, To decrease level of supervision to perform tasks, To improve gait and locomotor functions, To improve safety with gait Please do not hesitate to contact me at [phone] by phone or if you have questions or concerns regarding this new plan of care! Sincerely, Dario White PT, <Electronically signed by Dario White PT, Cert. MDT, OCS> 06/26/17 1502 CC: DAYANNA Lind; Alix Bonner DO LACEY Signed For Medicare only, by signing this I certify the plan of care. Physicians Signature Date STRESS REPORT Observed: 06/13/2017 Status: F Source: LEWIS 12:26 PM [facility] REPOSITORY [facility] [address] [id number] MR#: [id number] Acct: [id number] Name: DONAL JOHNSON Rep #: [id number] : 1950 66 From: Imtiaz Loco MD Primary Care: Alix Bonner DO Status: REG CLI Ordering Dr: Sex: F C Stress Test Report Pharmacologic myocardial perfusion stress test. 66-year-old lady with a history of chest pain. Stress protocol: Resting EKG demonstrates normal sinus rhythm with a rate of 63 bpm normal intervals and noted resting blood pressure is 148/82 mmHg. 0.4 mg of regadenoson was infused per usual protocol followed by rapid intravenous saline flush injection. Continuous EKG monitoring was performed. The patient maintained sinus rhythm throughout the recording. At rest there were no ST or T-wave changes noted suggest abnormal flow reserve at peak infusion no ST or T-wave changes were noted suggest abnormal flow reserve. Resting blood pressure is 148/82 with a final blood pressure 152/88. Myocardial perfusion protocol. 10.5 mCi of technetium 99m sestamibi was injected at rest. 0.4 mg of regadenoson was infused per usual protocol. At peak infusion 31.9 mCi of technetium 99m sestamibi was injected stress images were obtained stress and rest images were reconstructed and compared in the short axis vertical long and horizontal long axis. Gated images were also obtained. Perfusion SPECT analysis. Review of the stress images demonstrate normal uptake of tracer noted in the septum anterior wall and lateral wall. The inferior wall demonstrates a moderate amount of reduction in perfusion. There is mild improvement in the above with some residual perfusion defect. It is not clear whether this is due to attenuation artifact or residual ischemia in a previously infarcted zone. Gated SPECT analysis: The gated ejection fraction is noted to be 64%. Conclusion: Pharmacologic myocardial perfusion stress test with possible inferior ischemia. Preserved ejection fraction present. 06/13/17 1226 <Electronically signed by Imtiaz Loco MD> Date Imtiaz Loco MD CC: Imtiaz Loco MD; Alix Bonner DO Date Dictated: 06/13/17 1223 Date Transcribed: 06/13/171222 Service Station Helper: [place] Signed RE-EVALUATION - PT (1) Observed: 06/12/2017 Status: F Source: KARLA 11:03 AM [facility] REPOSITORY [facility] [address] [place] [address] Fax REEVALUATION / MEDICARE RECERTIFICATION PHYSICAL THERAPY MR#: [id number] Acct: [id number] Name: DONAL JOHNSON Rep #: [id number] : 1950 66 From: Dario White PT, Cert. MDT, OCS Referring Dr.: DAYANNA Lind Status: REG RCR Insurance: [facility] MEDICARE PPO SELF PAY INSURANCE Jamia Lind, ACCOUNT RECEIVABLE CLERK-C, ACCOUNT RECEIVABLE CLERK.ODY It has been my pleasure to treat DONAL JOHNSON over the last 12 visits for CVA. Please see the progress note below for an update on the physical therapy plan of care! Subjective: Patient had CVA affected left side Apr 02. Patient had Rehab 2weeks d/c to home rollator. C/O parathesia in hands. Patient is Independant with dressing,bathing. Spouse does the cooking. Patient not driving. Steps one steps at a time. Objective/Function: POSTURE: mild foward posture. NEURO: denies parathesia/tingling ,reflexes patella ,achilles hyperreflexia,TONE: patient has mod ataxia,decrease motor contol left leg. TRANSFERS: Independant with transfers. BED MOBLITY: supine -sit mod Independant. MMT: quads/hams bilateral 4/5,hip flexion L 4-/5,abd 3+/5 L ,ANKLE BILATERAL 4/5. STAIRS: one steps at time with rail/SBQC. GAIT: ambulates with SBQC with point gait with supervision with decrease control due to ataxia left leg with decrease control heel stricke toe off. 400 feet. BALANCE: fair+ dynamic balnce Plan Plan: PLAN OF CARE 2XWEEK FOR 6 WEEKS -12 VISITS. FOR PROGRESSIVE GAIT TRAINING,BALANCE TRAINING,MOTOR CONTROL, STRENGTHENING LE,STAIR STRAINING. PATIENT WILL BENIFIT FROM SKILLED PHYSICAL THERAPY TO ADDRESS ABOVE IMPAIRMENTS WITH BALANCE MOTOR CONTROL OF ATAXIA,STRENGTH GAIT AND BALANCE Goals Goal 1:: Patient to be Independant with HEP Goal Time Frame: 6-8 Weeks Goal Progress: Progressing Goal 2:: Patient to ambulate with least restrictive device community distance with improve quality of gait with heel strike toe off with Mod independant . Goal Time Frame: 6-8 Weeks Goal Progress: Progressing Goal 3:: Patient to improve dynamic balance with least restrictive device good- and improve motor control left leg Goal Time Frame: 6-8 Weeks Goal Progress: Progressing Goal 4:: Patient to increase strength hip 4/5 to improve function with walking and ADL'S to improve control with gait Goal Time Frame: 6-8 Weeks Goal Progress: Progressing Goal 5:: Patient improve score on functional gait assessment to 19-20 Goal Time Frame: 6-8 Weeks Goal Progress: Progressing Goal 6:: ASECEND/DESCEND 12 STEPS WITH SUPERVSION/MOD INDEPENDANT WITH RAIL Goal Time Frame: 4-6 Weeks Goal Progress: Progressing Anticipated Interventions Patient/Client Instruction: Educate patient on: Condition, Plan of Care For the Purpose of:: To decrease pain, To improve muscle performance and motor function, To improve ability to perform ADL's, To increase tolerance to activity/condition/position, To improve performance and independence with ADL's, To improve ability of physical actions for home/community/work/leisure, To improve gait and locomotor functions, To increase flexibility/ROM, To improve endurance, To improve balance, To improve safety, To improve tolerance to ADL's Therapeutic Exercise to Include: Strength training, Endurance training, Balance training, Coordination, Gait and locomotor training Comment: LE For the Purpose of:: To improve muscle performance and motor function, To improve ability to perform ADL's, To increase tolerance to activity/condition/position, To improve performance and independence with ADL's, To decrease level of supervision to perform tasks, To improve gait and locomotor functions, To improve endurance, To improve balance, To improve safety with gait, To assume or resume ADL's, To improve tolerance to ADL's Functional Training to Include: Gait training For the Purpose of:: To improve muscle performance and motor function, To improve ability to perform ADL's, To improve performance and independence with ADL's, To decrease level of supervision to perform tasks, To improve gait and locomotor functions, To improve safety with gait Please do not hesitate to contact me at [phone] by phone or if you have questions or concerns regarding this new plan of care! Sincerely, Dario White, PT, <Electronically signed by Dario White PT, Cert. MDT, OCS> 06/12/17 1103 CC: DAYANNA Lind; Alix Bonner DO JLA Signed For Medicare only, by signing this I certify the plan of care. Physicians Signature Date OT D/C SUMMARY Observed: 06/08/2017 Status: F Source: [place] 2:10 PM [facility] REPOSITORY [facility] Occupational Therapy [facility] [address] [place] [address] Fax REHABILITATION SERVICES DISCHARGE SUMMARY MR#: [id number] Acct: [id number] Name: DONAL JOHNSON Rep #: [id number] : 1950 66 From: Laverne Reyes Referring Dr.: DAYANNA Lind Status: REG RCR Eval Date: Discharge Date: HP - OT D/C Summary It has been my pleasure to treat DONAL JOHNSON under orders from MICHAEL Wise, ACCOUNT RECEIVABLE CLERKKAREEM for the diagnosis of CVA for a total of 11 visit(s). Please see the following information for a summary of their discharge status. - Objective Objective/Function: Completed reassessment on this date. B UE ROM is WFL. Strength assessment from and WFL of B UE, plate drying machine tender (avg 3 trials) R 58, L 57; lateral R 16, L 11; three jaw R 12, L 10; tip pinch R 11, L 11. Completed monofilament testing and all have progressed and are WFL. R hand 2nd 3.22 3rd 2.83 4th 3.22 5th 3.22 thumb 3.84 ; L hand 2nd 3.22 3rd 3.22 4th 3.22 5th 3.22 thumb 3.22. Completed 9 hole pegboard test completed R 23.94 s, and L 39.48 s. She has progressed with therapy and is completing ADL/IADls. She completed Stroke Quality of Life Scale has progressed from 166 to 179. She has progressed and meant most goals and will be d/c'd on this date. - Goals Patient Goals: Regain Mobility, Regain Strength, Decrease Pain, Return to Work, Improve Fine Motor Skills, Use Hand/Wrist/Arm Normally Again, Sleep Better, Increase ROM, Be More Independent in ADLS, Resume Former Household Responsibilities (Cooking,Cleaning,Yard, etc.), Resume Hobbies Goal:: Pilar to increased L UE strength to that of R nonaffected UE to promote strength and endurance for ADl/IADls by d/c. Goal:: Pilar to increased finger dexterity, FMC, in hand manipulation through decreased time on 9 hole pegboard test to promote increased in hand manipulation by d/c. Goal:: Pilar to increased sensation through decreased monofilament scores to promote increased touch sensation to promote ADL/IADl sby d/c. Goal:: Pilar to return to all ADL/IADls (I) with good safety awareness 4/5 trials 80% of the time to promote increased (I) by d/c. Goal:: Pilar to be (I) to complete HEP for BUE strength and sensory reintegration techniques 4/5 trials 80% of the time to promote increased (I) and ability to complete ADL/IADls by d/c. 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 - Plan Plan: Pt. will be d/c'd. She is progressing and will continue to progress with returning to IADLs and community outtings as advised with PT. She is to call with questions/concerns. - D/C Information If there are questions or concerns regarding this patient's occupational therapy, please fell free to call me at [phone]. Thank you for the referral of this patient. Sincerely, Laverne Reyes <Electronically signed by Laverne Reyes > 06/08/17 4040 CC: DAYANNA Lind; Alix Bonner DO KMSandra Signed RE-EVALUTION OT Observed: 05/28/2017 Status: F Source: LE[place]IS 8:51 AM [facility] REPOSITORY [facility] Occupational Therapy [facility] [address] [place] [address] Fax REEVALUATION / MEDICARE RECERTIFICATION OCCUPATIONAL THERAPY MR#: [id number] Acct: [id number] Name: DONAL JOHNSON Rep #: [id number] : 1950 66 From: Laverne Reyes Referring Dr.: DAYANNA Lind Status: REG RCR Insurance: [employer] JUST FOR ME Eval Date: SELF PAY INSURANCE Jamia Lind, JOSEC, DAYANNA.[place] It has been my pleasure to treat ODNAL JOHNSON over the last 9 visits for CVA. Please see the progress note below for an update on the occupational therapy plan of care! Subjective: Pt. arrived with . Bhanu present for session. She noted that she feels she is about 80% back to 100% prior to CVA. SHe is starting to complete small meals but is not back to cooking as she would like. Continue to address. Objective/Function: Completed reassessment on this date. She notes persistance of numbness and tingling in L hand in morning. Monofilment test completed and she has progressed on touch sensation from inital evaluation. Monofilament scores are as follows for R vs. L hands: R 2 3.22, 3rd 2.83, 4th 3.22, 5th 3.84, thumb 3.84; L hand 2 3.22, 3rd 3.22, 4th 3.22, 5th 3.61, thumb 3.61. Reassessment complete and B UE ROM is WFL. 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 ( hole pegbaord test completed and results progressed from intial evaluation. ( hole pegboard reulsts on R hand 23.06s, and L 35.98 s. She is completing making of some small sides/entries for IADLs. Pilar completed Stroke QOL scale and has progressed from initally rated score of 137 to todays score of 169. She has progressed and will continue OT at this time. Plan Frequency: 1x/Week Duration: 2 Weeks Plan: 1x 2 weeks follow up appointments to set up additional sensory reintegration exercises for HEP. PT to address LE functioning. She will slowly start to progress geting back to normal routine. Goals - Goals Goal:: Pilar to increased L UE strength to that of R nonaffected UE to promote strength and endurance for ADl/IADls by d/c. Goal:: Pilar to increased finger dexterity, FMC, in hand manipulation through decreased time on 9 hole pegboard test to promote increased in hand manipulation by d/c. Goal:: Pilar to increased sensation through decreased monofilament scores to promote increased touch sensation to promote ADL/IADl sby d/c. Goal:: Pilar to return to all ADL/IADls (I) with good safety awareness 4/5 trials 80% of the time to promote increased (I) by d/c. Goal:: Pilar to be (I) to complete HEP for BUE strength and sensory reintegration techniques 4/5 trials 80% of the time to promote increased (I) and ability to complete ADL/IADls by d/c. 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 Anticipated Interventions Anticipated Interventions: A/AAROM/PROM, Strengthening, Sensory Retraining, Joint Protection/Energy Conservation, Ergonomic Education, Fine Motor Coord/Js, Neuro Reeducation, Cognitive Skills, ADL Training, Caregiver Training, Home Program Please do not hesitate to contact me at [phone] by phone or if you have questions or concerns regarding this new plan of care! Sincerely, Laverne Reyes <Electronically signed by Laverne Reyes > 05/28/17 0851 CC: DAYANNA Lind; Alix Bonner DO KMSandra Signed For Medicare only, by signing this I certify the plan of care. Physicians Signature Date RE-EVALUATION - PT (1) Observed: 05/25/2017 Status: F Source: [place] 12:30 PM [facility] REPOSITORY [facility] Physical Therapy [facility] [address] [place] [address] Fax REEVALUATION / MEDICARE RECERTIFICATION PHYSICAL THERAPY MR#: [id number] Acct: [id number] Name: DONAL JOHNSON Rep #: [id number] : 1950 66 From: Dario White PT, Cert. MDT, OCS Referring Dr.: DAYANNA Lind Status: REG RCR [facility]: [facility] SELF PAY INSURANCE Jamia Lind, ACCOUNT RECEIVABLE CLERK-C, ACCOUNT RECEIVABLE CLERK.[facility] It has been my pleasure to treat DONAL JOHNSON over the last 9 visits for CVA. Please see the progress note below for an update on the physical therapy plan of care! Subjective: My goal walk without device. Patient more active around home ,Independant with ADLS' ,. SRAIRS Objective/Function: POSTURE: mild foward posture. GAIT: ambulate with rollater Independant, with improved heel strike to toe off. ambulates with QC with CGA/SBA 2 point gait 15O FEET. MMT: quads/hams/ankle 4/5 ,hip flexion 4-/5. BALANCE: fair+ with device. MOTOR CONTROL IMPROVED. STAIRS: ascend/descend 12 steps CGA Plan Plan: CONT WITH POC 2XWEEK FOR 4WEEKS Goals Goal 1:: Patient to be Independant with HEP Goal Time Frame: 4-6 Weeks Goal Progress: Progressing Goal 2:: Patient to ambualte with least restrictive device community distance with improve quality of gait with heel strike to off Goal Time Frame: 4-6 Weeks Goal Progress: Progressing Goal 3:: Patient to improve dynanic balance with least restrictive device good-. Goal Time Frame: 4-6 Weeks Goal Progress: Progressing Goal 4:: Patient to increase strength 4/5 to improve function with walking and ADL'S to improve control with gait Goal Time Frame: 4-6 Weeks Goal Progress: Progressing Goal 5:: Patient be able to perform ADL'S and housework tasks with min limiations Goal Time Frame: 4-6 Weeks Goal Progress: Progressing Goal 6:: ASECEND/DESCEND 12 STEPS WITH SUPERVSION/MOD INDEPENDANT WITH RAIL Goal Time Frame: 4-6 Weeks Goal Progress: Progressing Anticipated Interventions Patient/Client Instruction: Educate patient on: Condition, Plan of Care For the Purpose of:: To decrease pain, To improve muscle performance and motor function, To improve ability to perform ADL's, To increase tolerance to activity/condition/position, To improve performance and independence with ADL's, To improve ability of physical actions for home/community/work/leisure, To improve gait and locomotor functions, To increase flexibility/ROM, To improve endurance, To improve balance, To improve safety, To improve tolerance to ADL's Therapeutic Exercise to Include: Strength training, Endurance training, Balance training, Coordination, Gait and locomotor training Comment: LE For the Purpose of:: To improve muscle performance and motor function, To improve ability to perform ADL's, To increase tolerance to activity/condition/position, To improve performance and independence with ADL's, To decrease level of supervision to perform tasks, To improve gait and locomotor functions, To improve endurance, To improve balance, To improve safety with gait, To assume or resume ADL's, To improve tolerance to ADL's Functional Training to Include: Gait training For the Purpose of:: To improve muscle performance and motor function, To improve ability to perform ADL's, To improve performance and independence with ADL's, To decrease level of supervision to perform tasks, To improve gait and locomotor functions, To improve safety with gait Please do not hesitate to contact me at [phone] by phone or if you have questions or concerns regarding this new plan of care! Sincerely, Dario White PT, <Electronically signed by Dario White PT, Cert. MDT, OCS> 05/25/17 1230 CC: DAYANNA Lind; Alix Bonner DO LACEY Signed For Medicare only, by signing this I certify the plan of care. Physicians Signature Date CARDIOLOGY VISIT Observed: 05/16/2017 Status: F Source: [place] REPORT 2:15 PM [facility] REPOSITORY [facility] [address] [place] [address] OFFICE VISIT Date of Service: 05/16/17 MR#: [id number] Acct: [id number] Name: DONAL JOHNSON Rep #: [id number] : 1950 Provider: Imtiaz Loco MD Age/Sex: 66/F Location: [facility] Status: Signed HPI HPI Chief Complaint: Initial evaluation. Details: DONAL JOHNSON, is a 66 F who presents to the office today for an initial evaluation. She is a lady who had been admitted to the hospital in April of this year with what appeared to be a cerebrovascular accident. She was also noted to have significant electrolyte abnormalities when she was admitted. She did not have any cardiac workup at that time but was advised to see the precision machinist on discharge. She also had an event monitor placed and during that time she was noted to have an asymptomatic wide complex tachycardia lasting approximately 18 beats at a rate of 151 bpm. She says that she did not feel it and has not felt any more since. He does not appear that she has had any more of these arrhythmias. She has had no neck, jaw discomfort suggesting angina no dizziness or diaphoresis. She unfortunately continues to use tobacco products. Her physical exam today demonstrates clear lung parada regular rate and rhythm and no pedal edema. Intake Vital Signs05/16/17 Height 5 ft 3 in 05/16/17 Weight: 134 lb 05/16/17 Body Mass Index (BMI) 23.7 05/16/17 Blood Pressure 100/60 05/16/17 Respiratory Rate 18 05/16/17 Pulse Rate 82 Intake Visit Reasons: Recent IP rehab stay and Holter results Allergies No Known Allergies Allergy (Verified 05/16/17 11:25) Medications Fluticasone/Salmeterol [Advair 250-50 Diskus] 1 puff PO BID 04/03/17 [History Confirmed 05/16/17] Albuterol Aerosols [Ventolin Aerosols] 2.5 mg INHALATION Q2H PRN PRN vial.neb. 04/05/17 [Rx Confirmed 05/16/17] Aspirin [Aspirin, Baby] 81 mg PO DAILY@0800 tab.chew 04/05/17 [Rx Confirmed 05/16/17] Acetaminophen [Tylenol Tablet] 650 mg PO Q6H PRN PRN tab 04/19/17 [Rx Confirmed 05/16/17] Atorvastatin Calcium [Lipitor] 80 mg PO DAILY #30 tab 04/19/17 [Rx Confirmed 05/16/17] Citalopram [Celexa] 20 mg PO DAILY #30 tab 04/19/17 [Rx Confirmed 05/16/17] Clopidogrel Bisulfate [Plavix] 75 mg PO DAILY #30 tab 04/19/17 [Rx Confirmed 05/16/17] Lisinopril [Zestril] 40 mg PO DAILY #30 tab 04/19/17 [Rx Confirmed 05/16/17] metoprolol succinate ER 50 mg tablet,extended release 24 hr 50 mg PO QDAY #90 tab 05/16/17 [Rx Confirmed 05/16/17] PFSH Medical History Secondary pulmonary arterial hypertension (Chronic) Nicotine dependence (Chronic) CVA (cerebral vascular accident) (Acute) Ventricular tachycardia (Acute) Left leg weakness (Acute) HTN (hypertension) (Chronic) COPD (chronic obstructive pulmonary disease) (Chronic) Bronchitis (Chronic) Crohn disease (Chronic) History of carpal tunnel release (Chronic) Lupus (Chronic) Psoriasis (Chronic) left sided paresthesias (Inactive) Surgical History History of appendectomy (Chronic) History of blepharoplasty (Chronic) History of cataract surgery (Chronic) History of tubal ligation (Chronic) History of appendectomy (Inactive) Status post blepharoplasty of both eyes (Inactive) Family History Father Hypertension Lung cancer Mother Lupus Sister Crohn's disease Social History Smoking Status: Heavy Smoker (>10/day) ROS Const Const: Positive for fatigue and weakness (Left sided weakness using walker. Rehab 3 x week); negative for difficulty sleeping, frequent falls, headache(s) or excessive sweating Eyes Eyes: Negative for loss of peripheral vision, transient loss of vision, blurry vision or double vision ENT ENT: Negative for headache(s), dizziness, Nosebleed/epistaxis or balance problems Cardio Chest Pain: No Edema: None Muscle aches with walking: None Resp Respiratory: Negative for SOB with activity, SOB at rest, SOB orthopnea\SOB lying down or paroxysmal nocturnal dyspnea GI GI: Negative nausea or heartburn : Negative for hematuria Musc Musc: Negative for muscle aches/ myalgia, muscle weakness, joint pain or balance problems Skin Skin: Negative non-healing lesions, unusual bruising or rash Neuro Neuro: Positive for weakness (Left sided weakness using walker. Rehab 3 x week) and lightheadedness (When up ambulating after taking her meds); negative for frequent falls, blurry vision, headache(s), dizziness, orthostatic symptoms or double vision Pro Hematologic/Lymphatic: Negative for easy bruising Endo Endo: Positive for fatigue; negative for excessive sweating or increased thirst/drinking Psych Psych: Negative for anxiety or depression Allergy Allergy/Immunology: Negative for hives, Negative for rash Cardiology Exam Const Appearance: cooperative, healthy appearing, well developed, well groomed and no acute distress Nutritional Appearance: well nourished and average body habitus Orientation: alert, awake and oriented x3 Head Head: normal to inspection, normocephalic and atraumatic Ears: hearing grossly normal bilaterally and external ears normal Nose: external nose normal, nasal mucous membranes and turbinates normal, nares normal, septum normal, no nasal discharge Face and Sinus: face symmetric Mouth: oral mucosae normal, tongue normal, oropharynx normal and moist mucous membranes Teeth and gingiva: dentition normal Throat: posterior oropharynx normal, tonsils normal and uvula midline Eyes General: appearance normal, both eyes and all related structures Eyelids: eyelids normal Conjunctivae: conjunctivae normal Pupils: PERRL, normal by confrontation and accommodation normal EOM: EOM intact bilaterally Neck Neck: normal visual inspection, trachea midline and no JVD JVD: +5 Carotids: normal carotid upstroke and bounding pulses Chest Chest inspection: normal inspection of the chest, symmetric chest movement and normal respiratory effort Auscultation: Bilateral: Clear to Auscultation Cardio Palpation: normal PMI Rate: regular rate Rhythm: regular rhythm Heart sounds: S1 normal, S2 normal and normal, physiologic split S2; negative rub, gallop or murmur GI GI: normal to inspection, soft, no hepatosplenomegaly and bowel sounds present Neuro General: alert, awake, oriented x3, no focal sensory deficit, gait normal and moves all extremities Skin Skin: no rashes or lesions noted Extremities Pulses: Normal: Right Femoral Pulse, Left Femoral Pulse, Right Dorsalis Pedis Pulse, Left Dorsalis Pedis Pulse, Right Posterior Tibial Pulse, Left Posterior Tibial Pulse, Right Radial Pulse, Left Radial Pulse Lower Extremity Edema: None: Bilateral Musculoskel Musculoskeletal: No joint tenderness Psych Psychological: normal affect Assessment AND Plan 1. Ventricular tachycardia I47.2 18 beat run of VT per 30 day event monitor (ord by Dr. Rodriguez in neurology: Dr. Loco monitoring) Plan Her event monitor demonstrates an 18 beat run of a wide complex tachyarrhythmia. There is no clear AV disassociation noted. Aberrancy cannot be completely excluded with atrial fibrillation.. My recommendation at this time is for her to undergo an echocardiogram to assess the left ventricular function as well as a myocardial perfusion scan. I would recommend discontinuing her amlodipine and putting her on a beta-shira. Depending on the findings further recommendations will be made. Orders Orders: 2. Essential hypertension I10 Plan Her blood pressure remains under good control. As noted above I will recommend substituting a beta-shira for her calcium channel shira which she will take together with her lisinopril. The echocardiogram would assess whether she has any wall thickness or valvular abnormalities. 3. Cigarette nicotine dependence without complication F17.210 Plan I have strongly cautioned her against continued nicotine dependence. Thank you for allowing me to participate in her care. Plan Detail Other Medications New: Discontinued: Follow Up 3 Months (mmm) Coding Level of Care Code Off vis,new,level 4 Diagnoses Ventricular tachycardia I47.2 Essential hypertension I10 Hypertension type: essential hypertension Cigarette nicotine dependence without complication F17.210 Nicotine product type: cigarettes Substance use status: uncomplicated Coding Level of Care Code Off vis,new,level 4 Diagnoses Ventricular tachycardia I47.2 Essential hypertension I10 Hypertension type: essential hypertension Cigarette nicotine dependence without complication F17.210 Nicotine product type: cigarettes Substance use status: uncomplicated 05/16/17 1415 <Electronically signed by Imtiaz Loco MD> Date Imtiaz Fernandez Signature: Date (if applicable) CC: Alix Bonner DO CBC-COMPLETE BLOOD CNT Collected: 05/03/2017 Status: F Source: [place] NO DIFF 3:34 PM [facility] REPOSITORY TYPE CODE TESTS RESULT OUT OF RANGE REFERENCE UNITS LAB L100.1000 4.4-11.0 K/mm3 Normal WBC 8.3 LAB L100.1200 4.2-5.4 M/mm3 Low RBC 3.71 LAB L100.1300 12.0-15.0 g/dl Low HGB 11.2 LAB L100.1400 37-47 % Low HCT 34.4 LAB L100.1500 81-99 fL Normal MCV 92.7 LAB L100.1600 27.0-32.0 pg Normal MCH 30.2 LAB L100.1700 32-36 g/gl Normal MCHC 32.6 LAB L100.1810 11.6-14.6 % High RDW CV 15.8 LAB L100.1820 35.1-43.9 fl High RDW SD 53.3 LAB L100.1900 150-450 K/mm3 Normal PLT 387 LAB L100.2000 6.2-12.0 fl Normal MPV 9.2 Performed By: #### L100.0500 #### [facility] [place], [address] COMPREHENSIVE METABOLIC Collected: 05/03/2017 Status: F Source: [place] PROFIL 3:34 PM [facility] REPOSITORY TYPE CODE TESTS RESULT OUT OF RANGE REFERENCE UNITS LAB L501.0100 74-106 mg/dL High GLU 129 Result Comment: Fasting Glucose result greater than or equal to 126 mg/dL suggests DIABETES MELLITUS per A.D.A. criteria. Please note revised GLUCOSE reference range effective 2017. LAB L501.1000 7-18 mg/dL High BUN 20 LAB L501.1100 0.55-1.02 mg/dL High CREAT,SERUM 1.35 Result Comment: The validity of the calculated GFR AND GFRAA in patients over 70 years has not been determined. Clinical correlation is essential. LAB L501.1110 >60 mL/min Low EST GFR 42 Result Comment: Non- GFR Calc LAB L501.1115 >60 mL/min Low EST GFR - AA 51 Result Comment: GFR Calc LAB L501.1300 10-20 RATIO Normal BUN/CRE 14.8 LAB L501.1500 6.4-8.2 g/dL T Normal PROT 7.9 LAB L501.1800 3.2-5.0 g/dL Normal ALB 3.4 LAB L501.1950 2.2-4.2 g/dL High GLOB 4.5 LAB L501.2000 0.9-2.4 RATIO Low A/G 0.8 LAB L501.2200 8.5-10.1 mg/dL CA Normal 8.6 LAB L501.4100 15-37 U/L Normal AST 29 LAB L501.4305 45-117 U/L High ALK P 211 LAB L501.4405 13-56 U/L Normal ALT 51 Result Comment: Please note revised ALT reference range effective 2017. LAB L501.4600 0.20-1.00 mg/dL Normal T BILI 0.40 LAB L501.5300 136-145 mmol/L Low NA 135 LAB L501.5600 3.5-5.1 mmol/L Normal K 3.5 LAB L501.5900 98-107 mmol/L Normal CL 107 LAB L501.6100 21.0-32.0 mmol/L Normal CO2 21.0 LAB L501.6200 5-15 Normal GAP 7 Performed By: #### L500.4050, L501.2300, L501.5200 #### [facility] [address] [place], [place], [id number] PHOSPHORUS Collected: 05/03/2017 Status: F Source: [place] 3:34 PM [facility] REPOSITORY TYPE CODE TESTS RESULT OUT OF RANGE REFERENCE UNITS LAB L501.2300 2.5-4.9 mg/dL Normal PHOS 2.6 Performed By: #### L500.4050, L501.2300, L501.5200 #### [facility] [address] [place], [address] MAGNESIUM Collected: 05/03/2017 Status: F Source: [place] 3:34 PM [facility] REPOSITORY TYPE CODE TESTS RESULT OUT OF RANGE REFERENCE UNITS LAB L501.5200 1.6-2.6 mg/dL Normal MG 2.2 Result Comment: Please note revised Magnesium reference range effective 2017. Performed By: #### L500.4050, L501.2300, L501.5200 #### [facility] [address] [place], [address] INITAL EVALUATION (1) Observed: 05/01/2017 Status: F Source: [place] - PT 12:55 PM [facility] REPOSITORY [facility] Physical Therapy [facility] [address] [place] [address] Fax REHABILITATION SERVICES INITIAL EVALUATION MR#: [id number] Acct: [id number] Name: DONAL JOHNSON Rep #: [id number] : 1950 66 From: Dario White PT, Cert. MDT, OCS Referring Dr.: DAYANNA Lind Status: REG [facility] Insurance: [facility] JUST FOR HI SELF PAY INSURANCE Patient's Visit Information DOANL JOHNSON is a 66 year old F referred to Physical Therapy by Jamia Lind, DAYANNA-C ACCOUNT RECEIVABLE CLERK.[facility] with a diagnosis of CVA. Date of Evaluation: 04/27/17 Physical Therapist: Dario White PT, - Visit Plan Frequency: 2x /Week Duration: 4 Weeks Plan: Patient ambulates with rollator. gait/balance training ,motor control ex's leg/ankle,strengthening,conditioning - Subjective Subjective: This 66 y/o female presenst to physical therapy with CVA. Patient had CVA with weakness left ER [facility] thus did MRI showed CVA of right thalmus and right intenal capsule. Patient was in acute care 2 days then transferred to Rehab 4th floor 2weeks d/c to home Apr 19 2017. Prior to CVA Independant ADL'S ,work ,drive ,ambulated with device.Patient requires some assist with dressing ,Independant with bathing with shower seat. Spouse does housework cleaning,laundry,cooking.Patient fell Sunday bending over.Patient has some numbness hands.Patient CVA affects quality of life.Denies parathesia/tingling. HOME SITUATION: raunch with steps with rail. SOCAIL: . VOVATION: works - Objective POSTURE: mild foward posture. GAIT: mild foward posture motor control DF-drags toe ,decrease heel strike ,hip knee flexion ,slight hyperextension knee ataxia with motor control. BALANCE: fair with fww. TRANSFER: Mod Independant. BED MOBLITY: mod Independant with supine-sit. MMT: quads/hams/hip flexion 4-/5,ankle 4-/5 - Balance Scores CATSIB Score (Max score 120 seconds): 50 - Goals Goal 1:: Patient to be Independant with HEP Goal Time Frame: 4-6 Weeks Goal 2:: Patient to ambualte with least restrictive device community distance with improve quality of gait with heel strike to off Goal Time Frame: 4-6 Weeks Goal 3:: Patient to improve dynanic balance with least restrictive device good-. Goal Time Frame: 4-6 Weeks Goal 4:: Patient to increase strength 4/5 to improve function with walking and ADL'S to improve control with gait Goal Time Frame: 4-6 Weeks Goal 5:: Patient be able to perform ADL'S and housework tasks with min limiations Goal Time Frame: 4-6 Weeks Goal 6:: ASECEND/DESCEND 12 STEPS WITH SUPERVSION/MOD INDEPENDANT WITH RAIL - Rehabilitation Potential Physical Therapy Diagnosis: Patient had CVA with weakness decrease motor control impairs function with gait ,balance thus impairs ADLS' and housework tasks Rehabilitation Potential: Good - Anticipated Interventions Patient/Client Instruction: Educate patient on: Condition, Plan of Care For the Purpose of:: To decrease pain, To improve muscle performance and motor function, To improve ability to perform ADL's, To increase tolerance to activity/condition/position, To improve performance and independence with ADL's, To improve ability of physical actions for home/community/work/leisure, To improve gait and locomotor functions, To increase flexibility/ROM, To improve endurance, To improve balance, To improve safety, To improve tolerance to ADL's Therapeutic Exercise to Include: Strength training, Endurance training, Balance training, Coordination, Gait and locomotor training Comment: LE For the Purpose of:: To improve muscle performance and motor function, To improve ability to perform ADL's, To increase tolerance to activity/condition/position, To improve performance and independence with ADL's, To decrease level of supervision to perform tasks, To improve gait and locomotor functions, To improve endurance, To improve balance, To improve safety with gait, To assume or resume ADL's, To improve tolerance to ADL's Functional Training to Include: Gait training For the Purpose of:: To improve muscle performance and motor function, To improve ability to perform ADL's, To improve performance and independence with ADL's, To decrease level of supervision to perform tasks, To improve gait and locomotor functions, To improve safety with gait Thank you for the opportunity to evaluate your patient. For Medicare and Medicare HMO plans, please review the plan of care and approve it. It will need to be FAXED BACK to us at [phone] for Medicare purposes. Please let me know if there are questions or concerns regarding this plan of care. Physician Signature: Date: <Electronically signed by Dario White PT Cert. VIRGEN, OCS> 05/01/17 1255 CC: DAYANNA Bonner DO LACEY Signed For Medicare only, by signing this I certify the plan of care. Physicians Signature Date OT GENERAL EVALUATION Observed: 04/30/2017 Status: F Source: KARLA 12:43 PM [facility] REPOSITORY [facility] Occupational Therapy [facility] [address] [place] [address] Fax REHABILITATION SERVICES INITIAL EVALUATION MR#: [id number] Acct: [id number] Name: DONAL JOHNSON Rep #: [id number] : 1950 66 From: Laverne Reyes Referring Dr.: DAYANNA Lind Status: REG [facility] Colby Date: SELF PAY INSURANCE Patient's Visit Information DONAL JOHNSON is a 66 year old F, referred to Occupational Therapy by Jamia Lind, JOSEC,ACCOUNT RECEIVABLE CLERK.[facility], with a diagnosis of CVA. Date of Evaluation: 04/27/17 Occupational Therapist: Laverne Reyes - Subjective Subjective: Pt., Pilar, arrived with . present for session. She noted she had CVA on 2017. She noted she went to [facility] in morning. SHe noted symptoms cleared itself. Notes has MRI to confirm CVA. She spent 2 weeks on inpatient rehab. 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 She attends bar and completes book. - ROM Shoulder: WFL Elbow: WFL Forearm: WFL Wrist: WFL MP: WFL PIP: WFL DIP: WFL - Strength Shot Grinder Operator: R 61, L 53 Lateral Pinch: R 12, L 9 Tripod Pinch: R 11, L 5 Tip-to-Tip Pinch: R 9, L 4 - Sensation Thumb: R 3.84, L 3.84 Index: R 3.22, L 3.61 Middle: R 2.83, L 3.84 Ring: R 3.61, L 3.22 Little: R 3.22, L 3.84 Stereognosis: Normal - Right, Abnormal - Left Kinesthesia: Normal - Right, Abnormal - Left - Visual/Perceptual Skills Comments: denies visual changes since CVA. - Nine Hole Peg Right: 28.40 s Left: 50.57 s - In-Hand Manipulation Finger to Palm Translation: Mild - Right, Moderate - Left Palm to Finger Translation: Normal - Right, Mild - Right, Mild - Left, Moderate - Left - Stroke Specific Quality of Life Total SS-QOL Score: 137 - Goals Goal:: Pilar to increased L UE strength to that of R nonaffected UE to promote strength and endurance for ADl/IADls by d/c. Goal:: Pilar to increased finger dexterity, FMC, in hand manipulation through decreased time on 9 hole pegboard test to promote increased in hand manipulation by d/c. Goal:: Pilar to increased sensation through decreased monofilament scores to promote increased touch sensation to promote ADL/IADl sby d/c. Goal:: Pilar to return to all ADL/IADls (I) with good safety awareness 4/5 trials 80% of the time to promote increased (I) by d/c. Goal:: Pilar to be (I) to complete HEP for BUE strength and sensory reintegration techniques 4/5 trials 80% of the time to promote increased (I) and ability to complete ADL/IADls by d/c. 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 - Rehabilitation General Assessment: Pt., Pilar, arrived for OT eval on this date. She experienced a CVA 2017 which affected L UE. SHe noted that she stayed 3-4 weeks on [facility] rehab unit for therapy. She has sincec returned home and per report needs increased help with ADLs from due to time it takes for compeltion. She noted she is unable to complete iADLs at this time. Pilar to be treated by OT to address UE strength, endurance, coping skills and caregiver/Pt. training, LUE sensation, and returning to all ADL/IADLS by d/c. Rehabilitation Potential: Good - Anticipated Interventions Anticipated Interventions: A/AAROM/PROM, Strengthening, Sensory Retraining, Joint Protection/Energy Conservation, Ergonomic Education, Fine Motor Coord/Js, Neuro Reeducation, Cognitive Skills, ADL Training, Caregiver Training, Home Program - Visit Plan Frequency: 2x /Week Duration: 4 Weeks General Plan: Pilar to recieve OT servcies for holistic rehabiliation to help promote coping post CVA as well as increased BUE strength, endurance, L UE sensation, and general ability to return to all ADl/IADls at [facility] for increased QOL. TEXT: Thank you for the opportunity to evaluate your patient. For Medicare and Medicare HMO plans, please review the plan of care and approve it. It will need to be FAXED BACK to us at [phone] for Medicare purposes. Please let me know if there are questions or concerns regarding this plan of care. Physician Signature: Date: <Electronically signed by Laverne Reyes > 04/30/17 1243 CC: DAYANNA Lind; Alix Bonner DO KMB Signed For Medicare only, by signing this I certify the plan of care. Physicians Signature Date DISCHARGE SUMMARY Observed: 04/19/2017 Status: F Source: LEWIS 9:52 PM [facility] REPOSITORY [facility] Medical Records Department [address] [place] [address] Discharge Summary 04/19/17 1043 MR#: [id number] Acct: [id number] Name: DONAL JOHNSON Rep #: [id number] : 1950 66 From: Jamia Lind ACCOUNT RECEIVABLE CLERK-C PCP: Alix Bonner DO Status: DIS IN Y Location: [place] [address] ADDENDUM by Carrol Rodriguez MD on 04/19/17 at 2152 I have personally examined the patient at bedside. Please see DAYANNA Lind's discharge note as below for further complete details. I have discussed the management plan for the patient in detail with DAYANNA Lind and please see the plan as noted below. Staffed in [facility] meeting today. All questions were answered. Discharge today. 04/19/172151 <Electronically signed by Hermelindo Rodriguez MD> Date Hermelindo Rodriguez MD cc: DAYANNA Lind; Carrol Rodriguez MD; Alix Bonner DO * Signed Rehab Discharge Summary DATE OF ADMISSION: 04/05/17 DATE OF DISCHARGE: 04/19/17 - Rehab Diagnosis CVA Discharge Diet: No Restrictions, - - Cardiac diet Discharge Activity: May Not Drive, May Shower, May Take a Tub Bath, Use Walker Weight Bearing Status: Weight bearing as tolerated Call your doctor if you observe: Fever of 101 or Higher, Coldness, Increased Pain, Numbness or Tingling, Change in Color, Inability to urinate, Inability to have a bowel movement, Using more than one pad per hour, Shortness of breath, Dizziness, Fainting spells, Swelling in the ankles, Chest pain, Prolonged hiccoughing, Increased palpitations (irregular heartbeat), Calf discomfort, Uncontrolled pain Home Medications: Medications to take at Discharge Fluticasone/Salmeterol [Advair 250-50 Diskus] 1 puff PO BID 04/03/17 Albuterol Aerosols [Ventolin Aerosols] 2.5 mg INHALATION Q2H PRN PRN vial.neb. 04/05/17 Aspirin [Aspirin, Baby] 81 mg PO DAILY@0800 tab.chew 04/05/17 Hydrochlorothiazide [Hctz] 25 mg PO DAILY tablet 04/05/17 Lisinopril [Zestril] 20 mg PO DAILY tablet 04/05/17 Acetaminophen [Tylenol Tablet] 650 mg PO Q6H PRN PRN tablet 04/19/17 Amlodipine [Norvasc] 10 mg PO DAILY #30 tab 04/19/17 Atorvastatin Calcium [Lipitor] 80 mg PO DAILY #30 tab 04/19/17 Citalopram [Celexa] 20 mg PO DAILY #30 tab 04/19/17 Clopidogrel Bisulfate [Plavix] 75 mg PO DAILY #30 tab 04/19/17 Famotidine [Pepcid] 20 mg PO BID #60 tab 04/19/17 Lisinopril [Zestril] 40 mg PO DAILY #30 tab 04/19/17 Sodium Chloride 1 gm PO TID 5 Days #15 tab 04/19/17 Following Prescrptions Were Given to Patient: Amlodipine [Norvasc] 10 mg PO DAILY #30 tab Atorvastatin Calcium [Lipitor] 80 mg PO DAILY #30 tab Citalopram [Celexa] 20 mg PO DAILY #30 tab Clopidogrel Bisulfate [Plavix] 75 mg PO DAILY #30 tab Lisinopril [Zestril] 40 mg PO DAILY #30 tab Famotidine [Pepcid] 20 mg PO BID #60 tab Sodium Chloride 1 gm PO TID 5 Days #15 tab Primary Care Physician: Alix Bonner DO [Primary Care Provider] - Please Follow Up With: Jamia Lind NP-C Please Follow Up With: Alix Bonner DO Disposition: Home Minutes spent on discharge:: 40 Patient Condition:: Good Rehab Course The patient is a 66 year old female, who was admitted to the rehab unit for rehabilitation after suffering a Right Thalamic/IC acute stroke. She has a history of HTN, COPD, Anxiety, panic attack. Per patient she woke up on Sunday, (04/03/17) with left sided numbness and weakness, could not walk due to weakness, slid down the bed, NIHSS was 2 on admission, was not a TPA candidate. The MRI brain done on admission showed acute right thalamic stroke/right IC stroke, MRA of her head/neck did not show any hemodynamically significant stenosis or occlusion. At present patient continues to have some left sided weakness which has improved greatly per the patient and some numbness. But denies any QUICK or visual disturbances. The Patient lives with her , in a Ranch style home with 2 steps to get into the house. does not need any assistance for her ADLs, denies any frequent falls, does drive, does not use cane or walker to ambulate. She was previously completely functionally independent and is admitted to the rehab unit in order to restore her previous level of functional independence. She did not take aspirin previously at home. With Physical therapy, the patient is stand by assist for transfers and pivots. She is able to walk about 250 feet at supervise level. She does have a left foot drop and her knee hyperextends, she has a soft knee brace in place which helps with her walking, she practice with an AFO on her left ankle. Patient stated felt more stable, she was able to go up and down several steps with it on, and the therapist felt her ankle was more stable and her foot plant was better. With Occupational therapy she can do all her own care, she does however require minimal to contact guard for balance, every once in a while. She has less Ataxia in her Left arm and it continues to improve. With speech therapy she is doing well no issues with eating they discharged her from their service. She is on a regular cardiac diet. Her sodium level continues to be low last check was 132, started her on Sodium Chloride pills 1 gram TID x 7 days. Will recheck her sodium level when she return for her follow up visit with in the office. She will have a 30day event monitor placed at discharge, and she will follow up with the Neurologist as an outpatient. She will have outpatient Physical therapy and Occupational therapy on discharge, no driving until cleared by the Neurology team. Meaningful Use Info Meaningful Use Diagnoses (Choose all that apply): Ischemic CVA - CVA Therapy Assessed for PT,OT and/or ST?: Yes - Ischemic Stroke Antithrombotic order at d/c?: Yes Dx of Atrial fib/flutter?: No Anticoagulant at discharge?: No Reason anticoagulant not ordered: Treatment not Indicated Statins at discharge?: Yes Primary Dx Acute Ischemic CVA?: Yes IV tPA ordered during stay?: No Reason IV t-PA not ordered: Treatment not Indicated 04/19/17 1638 <Electronically signed by Jamia Lind ACCOUNT RECEIVABLE CLERK-C> Date Jamia Lind ACCOUNT RECEIVABLE CLERK-C 04/19/17 2151<Electronically signed by Hermelindo Rodriguez MD> Cosigner Signature (if applicable): Date Hermelindo Rodriguez MD CC: DAYANNA Lind; Carrol Rodriguez MD; Alix Bonner DO Signed DISCHARGE INSTRUCTION Observed: 04/19/2017 Status: F Source: K[place]LA 4:38 PM [facility] REPOSITORY [facility] Medical Records Department [address] [place] [address] Instructions for Home/Discharge Instructions 04/19/17 1216 MR#: [id number] Acct: [id number] Name: DONAL JOHNSON Rep #: [id number] : 1950 66 From: Jamia GARCIAC PCP: Alix Bonner DO Status: DIS IN - Discharge Diagnoses Reason(s) for Visit for Discharge Instructions: CVA You will use the following diet at home:: Regular, Cardiac Your food should be the consistency of: Regular Your liquids should be the consistency of: Regular/Thin Discharge Activity: May Not Drive, May Shower, May Take a Tub Bath, Use Walker Weight Bearing Status: Weight bearing as tolerated Call your doctor if you observe: Fever of 101 or Higher, Coldness, Increased Pain, Numbness or Tingling, Change in Color, Inability to urinate, Inability to have a bowel movement, Using more than one pad per hour, Shortness of breath, Dizziness, Fainting spells, Swelling in the ankles, Chest pain, Prolonged hiccoughing, Increased palpitations (irregular heartbeat), Calf discomfort, Uncontrolled pain Allergies/Adverse Reactions: Allergies No Known Allergies Allergy (Verified 04/03/17 05:56) Medications to take at Discharge Fluticasone/Salmeterol [Advair 250-50 Diskus] 1 puff PO BID 04/03/17 Albuterol Aerosols [Ventolin Aerosols] 2.5 mg INHALATION Q2H PRN PRN vial.neb. 04/05/17 Aspirin [Aspirin, Baby] 81 mg PO DAILY@0800 tab.chew 04/05/17 Hydrochlorothiazide [Hctz] 25 mg PO DAILY tablet 04/05/17 Lisinopril [Zestril] 20 mg PO DAILY tablet 04/05/17 Acetaminophen [Tylenol Tablet] 650 mg PO Q6H PRN PRN tablet 04/19/17 Amlodipine [Norvasc] 10 mg PO DAILY #30 tab 04/19/17 Atorvastatin Calcium [Lipitor] 80 mg PO DAILY #30 tab 04/19/17 Citalopram [Celexa] 20 mg PO DAILY #30 tab 04/19/17 Clopidogrel Bisulfate [Plavix] 75 mg PO DAILY #30 tab 04/19/17 Famotidine [Pepcid] 20 mg PO BID #60 tab 04/19/17 Lisinopril [Zestril] 40 mg PO DAILY #30 tab 04/19/17 Sodium Chloride 1 gm PO TID 5 Days #15 tab 04/19/17 The following prescriptions were given: Amlodipine [Norvasc] 10 mg PO DAILY #30 tab Atorvastatin Calcium [Lipitor] 80 mg PO DAILY #30 tab Citalopram [Celexa] 20 mg PO DAILY #30 tab Clopidogrel Bisulfate [Plavix] 75 mg PO DAILY #30 tab Lisinopril [Zestril] 40 mg PO DAILY #30 tab Famotidine [Pepcid] 20 mg PO BID #60 tab Sodium Chloride 1 gm PO TID 5 Days #15 tab Primary Care Physician: Alix Bonner DO [Primary Care Provider] - Please Follow Up With: Jamia Lind NP-C Please Follow Up With: Alix Bonner DO Proposed Discharge Date: 04/19/17 04/19/171637 <Electronically signed by Jamia RODRIGUEZ> Date Jamia RODRIGUEZ CC: Barbara Avelar; Josie Mariano DO; Alix Bonner DO COMPREHENSIVE METABOLIC Collected: 04/18/2017 Status: F Source: [facility]LA [facility] 12:40 PM [facility] REPOSITORY TYPE CODE TESTS RESULT OUT OF RANGE REFERENCE UNITS LAB L501.0100 74-106 mg/dL Normal GLU 89 Result Comment: Please note revised GLUCOSE reference range effective 2017. LAB L501.1000 7-18 mg/dL High BUN 29 LAB L501.1100 0.55-1.02 mg/dL High CREAT,SERUM 1.17 Result Comment: The validity of the calculated GFR AND GFRAA in patients over 70 years has not been determined. Clinical correlation is essential. LAB L501.1110 >60 mL/min Low EST GFR 49 Result Comment: Non- GFR Calc LAB L501.1115 >60 mL/min Normal EST GFR - AA 60 Result Comment: GFR Calc LAB L501.1255 ml/min Normal Estimated CRCL 40.18 LAB L501.1300 10-20 RATIO High BUN/CRE 24.8 LAB L501.1500 6.4-8. g/dL Normal 2 T PROT 7.7 LAB L501.1800 3.2-5. g/dL Normal 0 ALB 3.2 LAB L501.1950 2.2-4. g/dL High 2 GLOB 4.5 LAB L501.2000 0.9-2. RATIO Low 4 A/G 0.7 LAB L501.2200 8.5-10 mg/dL Normal .1 CA 8.6 LAB L501.4100 15-37 U/L Normal AST 19 LAB L501.4305 45-117 U/L Normal ALK P 79 LAB L501.4405 13-56 U/L Normal ALT 28 Result Comment: Please note revised ALT reference range effective 2017. LAB L501.4600 0.20-1.00 mg/dL Normal T BILI 0.50 LAB L501.5300 136-145 mmol/L Low NA 132 LAB L501.5600 3.5-5.1 mmol/L Normal K 3.9 LAB L501.5900 98-107 mmol/L Normal CL 103 LAB L501.6100 21.0-32.0 mmol/L Low CO2 17.0 LAB L501.6200 5-15 Normal GAP 12 Performed By: #### L500.4050 #### [facility] [address] [place], [place], [address] SODIUM LEVEL Collected: 04/17/2017 Status: F Source: KARLA 5:10 AM [facility] REPOSITORY TYPE CODE TESTS RESULT OUT OF RANGE REFERENCE UNITS LAB L501.5300 136-145 mmol/L Low NA 132 Performed By: #### L501.5300 #### [facility] [address] [place], [address] BASIC METABOLIC Collected: 04/16/2017 Status: F Source: [place] PROFILE (BMP) 5:15 AM [facility] REPOSITORY TYPE CODE TESTS RESULT OUT OF RANGE REFERENCE UNITS LAB L501.0100 74-106 mg/dL Normal GLU 98 Result Comment: Please note revised GLUCOSE reference range effective 2017. LAB L501.1000 7-18 mg/dL High BUN 22 LAB L501.1100 0.55-1.02 mg/dL Normal CREAT,SERUM 0.96 Result Comment: The validity of the calculated GFR AND GFRAA in patients over 70 years has not been determined. Clinical correlation is essential. LAB L501.1110 >60 mL/min Normal EST GFR 62 Result Comment: Non- GFR Calc LAB L501.1115 >60 mL/min Normal EST GFR - AA 75 Result Comment: GFR Calc LAB L501.1255 ml/min Normal Estimated CRCL 48.97 LAB L501.1300 10-20 RATIO High BUN/CRE 22.8 LAB L501.2200 8.5-10 mg/dL Normal .1 CA 8.5 LAB L501.5300 136-14 mmol/L Low 5 NA 132 LAB L501.5600 3.5-5. mmol/L Normal 1 K 3.8 LAB L501.5900 98-107 mmol/L Normal CL 104 LAB L501.6100 21.0-3 mmol/L Low 2.0 CO2 19.0 LAB L501.6200 5-15 Normal GAP 9 Performed By: #### L500.2500 #### [facility] [address] [place], [place] [address]fer[place]. [place], [place], [address] CBC W/DIFF, AUTOMATED Collected: 04/13/2017 Status: F Source: [place] 5:15 AM [facility] REPOSITORY TYPE CODE TESTS RESULT OUT OF RANGE REFERENCE UNITS LAB L100.1000 4.4-11.0 K/mm3 Normal WBC 6.2 LAB L100.1200 4.2-5.4 M/mm3 Low RBC 3.78 LAB L100.1300 12.0-15.0 g/dl Low HGB 11.6 LAB L100.1400 37-47 % Low HCT 34.6 LAB L100.1500 81-99 fL Normal MCV 91.5 LAB L100.1600 27.0-32.0 pg Normal MCH 30.7 LAB L100.1700 32-36 g/gl Normal MCHC 33.5 LAB L100.1810 11.6-14.6 % Normal RDW CV 14.6 LAB L100.1820 35.1-43.9 fl High RDW SD 47.7 LAB L100.1900 150-450 K/mm3 Normal PLT 286 LAB L100.2000 6.2-12.0 fl Normal MPV 9.4 LAB L100.2100 47-70 % High NEUT% 75.1 LAB L100.2200 19-41 % Low LY% 10.5 LAB L100.2300 0-10 % High MONO% 11.0 LAB L100.2400 0-5 % Normal EO% 2.9 LAB L100.2500 0-1 % Normal BASO% 0.3 LAB L100.2550 0.0-0.9 % Normal IM GRAN % 0.200 Result Comment: IG% - Immature Granulocytes (promyelocytes, myelocytes and metamyelocytes) > 1% indicates that a LEFT SHIFT is Present. LAB L100.2620 2.0-7.7 X10 3/uL Normal Absolute Neut 4.7 LAB L100.2720 0.83-4.51 X10 3/ul Low Absolute Lymph 0.65 Performed By: #### L100.0100 #### [facility] [address] [place], [address] BASIC METABOLIC Collected: 04/13/2017 Status: F Source: [facility] PROFILE ([facility]) 5:15 AM [facility] REPOSITORY TYPE CODE TESTS RESULT OUT OF RANGE REFERENCE UNITS LAB L501.0100 74-106 mg/dL Normal GLU 96 Result Comment: Please note revised GLUCOSE reference range effective 2017. LAB L501.1000 7-18 mg/dL High BUN 24 LAB L501.1100 0.55-1.02 mg/dL Normal CREAT,SERUM 0.96 Result Comment: The validity of the calculated GFR AND GFRAA in patients over 70 years has not been determined. Clinical correlation is essential. LAB L501.1110 >60 mL/min Normal EST GFR 62 Result Comment: Non- GFR Calc LAB L501.1115 >60 mL/min Normal EST GFR - AA 75 Result Comment: GFR Calc LAB L501.1255 ml/min Normal Estimated CRCL 48.97 LAB L501.1300 10-20 RATIO High BUN/CRE 25.0 LAB L501.2200 8.5-10 mg/dL Normal .1 CA 8.6 LAB L501.5300 136-14 mmol/L Low 5 NA 133 LAB L501.5600 3.5-5. mmol/L Normal 1 K 4.5 LAB L501.5900 98-107 mmol/L Normal CL 105 LAB L501.6100 21.0-3 mmol/L Low 2.0 CO2 19.0 LAB L501.6200 5-15 Normal GAP 9 Performed By: #### L500.2500 #### [facility] [address] [place], [address] CONSULTATION Observed: 04/12/2017 Status: F Source: LEWIS 8:50 AM [facility] REPOSITORY [facility] Medical Records Department [address] [place] [address] Consultation 04/07/17 1035 MR#: [id number] Acct: [id number] Name: DONAL JOHNSON Rep #: [id number] : 1950 66 From: Josie Mariano DO PCP: Alix Bonner DO Status: ADM IN Y Location: [address] Consultation - Renal 04/07/17 PCP/ Referring MD: Requesting physician: Barbara Avelar Primary care physician: Alix Bonner DO Reason for Consultation:: hyponatremia - History of Present Illness History of Present Illness: The patient is a 66 year old female, who was admitted to the rehab unit on 04/05 for Right Thalamic/IC acute stroke found on MRI. She has a history of HTN, COPD, Anxiety, panic attack. She woke up on 04/03/17, with left sided numbness and weakness, could not walk due to weakness, slid down the bed. Has no prior history of heart attack or stroke or irregular heartbeat. She does have a history of smoking quit 10 years ago but sneaks a cigarette once in a while. Patient was not a TPA candidate. Continues to have left-sided weakness. Denied any change in vision, occultly with swallowing. She does complain of a headache. Denied any nausea or vomiting. Denies any frequent falls. I was asked to see her on consult for hyponatremia. She has a history of low sodium of 133 in the past. Sodium was 128 on admission April 06 down to 124 and April 07. She was started on hydrochlorothiazide recently for uncontrolled hypertension. She has been on Celexa for anxiety panic attacks for many years. She complains of thirst, lightheadedness, dizziness. Denied any syncope. Denied chest pain. She does have a nonproductive cough with wheezing. Denies any fever chills. Hospitalist has already ordered urine indices along with cortisol stimulation test. Results are pending. - Allergies Allergies: Allergies No Known Allergies Allergy (Verified 04/03/17 05:56) - Current Medications Current Medications: Current Medications Acetaminophen (Tylenol) 650 mg PO Q6H PRN PRN PRN Reason: Mild Pain (0-3/10)/Headache Last Admin: 04/07/17 06:35 Dose: 650 mg Al Hydroxide/Mg Hydroxide (Mylanta Ii) 30 ml PO Q6H PRN PRN PRN Reason: Gastric burning Albuterol Sulfate (Ventolin Aerosols) 2.5 mg INHALATION Q2H PRN PRN PRN Reason: dyspnea, wheezing' Albuterol/Ipratropium (Duoneb) 3 ml INHALATION Q6HWA.RT [facility] Last Admin: 04/07/17 06:45 Dose: Not Given Amlodipine Besylate (Norvasc) 10 mg PO DAILY [facility] Last Admin: 04/07/17 08:29 Dose: 10 mg Aspirin (Aspirin, Baby) 81 mg PO DAILY@0800 [facility] Last Admin: 04/07/17 08:28 Dose: 81 mg Atorvastatin Calcium (Lipitor) 80 mg PO DAILY [facility] Last Admin: 04/07/17 08:28 Dose: 80 mg Bisacodyl (Dulcolax) 10 mg RECTAL .PRN X 1 PRN PRN Reason: Constipation Budesonide (Pulmicort Aerosol) 0.5 mg INHALATION Q12H.RT [facility] Last Admin: 04/07/17 06:45 Dose: Not Given Clopidogrel Bisulfate (Plavix) 75 mg PO DAILY [facility] Last Admin: 04/07/17 08:29 Dose: 75 mg Diphenhydramine HCl (Benadryl) 25 mg PO QHS PRN PRN PRN Reason: PRURITIS Last Admin: 04/06/17 20:09 Dose: 25 mg Enoxaparin Sodium (Lovenox) 40 mg SC DAILY@0600 [facility] Last Admin: 04/07/17 05:44 Dose: 40 mg Famotidine (Pepcid) 20 mg PO BID [facility] Last Admin: 04/07/17 08:29 Dose: 20 mg Sodium Chloride () 1,000 mls @ 999 mls/hr IV .Q1H1M ONE Stop: 04/07/17 11:19 Lisinopril (Zestril) 40 mg PO DAILY [facility] Magnesium Hydroxide (Milk Of Magnesia) 30 ml PO .PRN X 1 PRN PRN Reason: Constipation Senna/Docusate Sodium (Senokot-S, Donita-Colace) 2 tablet PO DAILY [facility] Last Admin: 04/07/17 08:29 Dose: Not Given - Past Medical History Past Medical History (Chronic Problems): Chronic Problems COPD (chronic obstructive pulmonary disease) (Chronic) HTN (hypertension) (Chronic) Tobacco use (Chronic) - Past Surgical History Surgical History: appendectomy, cataract, - - BLTL, Carpal Tunnel - Social History Smoking Status: Heavy Smoker (>10/day) Alcohol: Occasional Drugs: None - Family History Maternal History Items: No pertinent history Paternal History Items: Cancer Review of Systems Constitutional: Reports: Weakness - Left-sided. Denies: Anorexia, Chills, Fever, Fatigue Eyes: Denies: Blurred vision, Vision Change HEENT: Reports: Head Aches Cardiovascular: Denies: Chest Pain, Edema Respiratory: Reports: Cough, Wheezing. Denies: Shortness of Breath Gastrointestinal: Denies: Abdominal Pain, Nausea, Vomiting Genitourinary: Denies: Dysuria Musculoskeletal: Denies: Arm Pain, Back Pain Skin: Denies: Rash Neurological: Reports: - - Left-sided weakness. Denies: Difficulty swallowing, Tremor, Seizures Psychiatric: Reports: Anxiety. Denies: Depression Hematologic/ Lymphatic: Denies: Anemia, Easy Bruising - Physical Exam General: Alert, Oriented x3, Cooperative, No apparent distress HEENT: PERRLA, EOMI Oral: Dry Mucosa Neck: Supple Lungs: Diminished, Wheezes - Anterior chest wall Cardiovascular: Regular rate Abdomen: Bowel Sounds Present, Soft, Non Tender, Non-Distended Extremities: No edema Skin: No rashes Musculoskeletal: No Muscle Wasting Neurological: Cranial nerves II-XII grossly intact, - - Mild motor strength weakness left upper and lower extremity Psych/Mental Status: Normal Affect, Alert and oriented to time, place, person, mood and affect Vital Signs Temp Pulse Resp BP Pulse Ox 97.7 F L 76 16 140/85 H 98 04/07/17 08:17 04/07/17 08:17 04/07/17 08:17 04/07/17 08:17 04/07/17 08:17 Oxygen Delivery Method Room Air Weight: 64.52 kg Body Mass Index (BMI) 25.2 Finger Stick Blood Glucose 90 Intake and Output for Last 24 Hours Intake Total 360 / 360 240 / 240 Output Total 400 / 400 Balance 360 / 360 -160 / -160 Laboratory Tests Past 24 Hrs Sodium 124 L Potassium 3.3 L Assessment/Plan 1. Hyponatremia evaluate for SIADH from [employer] event. Await urine indices with urine sodium and urine osmolarity. Cortisol level pending to rule out adrenal insufficiency although I doubt that this is the case. Likely due to hydrochlorothiazide. Would recommend to hold hydrochlorothiazide. Would also consider discontinuing her SSRI for now. 2. Hypertension with mildly elevated blood pressures consider increasing lisinopril. Renal function and potassium level stable. 3. 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 4. Lightheadedness, dizziness check orthostatics Thank you. Discussed with hospitalist. 04/12/17 0850 <Electronically signed by Josie Mariano DO> Date Josie Mariano DO Cosigner Signature (if applicable): Date CC: Barbara Avelar; Josie Mariano DO; Alix Bonner DO Signed CONSULTATION Observed: 04/12/2017 Status: F Source: LEWIS 8:30 AM [facility] REPOSITORY [facility] Medical Records Department [address] [place] [id number] Consultation 04/04/17 1430 MR#: [id number] Acct: [id number] Name: DONAL JOHNSON Rep #: [id number] : 1950 66 From: Hermelindo Rodriguez MD PCP: Alix Bonner DO Status: DIS IN Y [id number] Problem List (1) Stroke Status: Acute Qualifiers: Precerebral and cerebral artery: posterior cerebral artery Laterality of affected vessel: right Reason for Consult Date of Consultation: 04/04/17 Reason for Consultation: stroke History of Present Illness: The patient is a 66 year old CF with PMH HTN, COPD, Anxiety, panic attack admitted with acute onset left side weakness and numbness. Per patient she woke up yesterday (04/03/17) with left sided numbness and weakness, could not walk due to weakness, slid down the bed, NIHSS was 2 on admission, was not a tpa candidate, MRI brain done on admission showed acute right thalamic stroke/right IC stroke, MRA head/neck did not show any hemodynamically significant stenosis or occlusion. At present patient continues to have left sided weakness and numbness but denies any QUICK or visual disturbances. Patient lives with her , does not need any assistance for her ADLs, denies any frequent falls, does drive, does not use cane or walker to ambulate. Patient was not taking ASA prior to admission. [] Past Medical History Past Medical History (Chronic Problems): Chronic Problems COPD (chronic obstructive pulmonary disease) (Chronic) HTN (hypertension) (Chronic) Tobacco use (Chronic) Allergies No Known Allergies Allergy (Verified 04/03/17 05:56) Home Medications: Ambulatory Orders Medication Instructions Recorded Atenolol [Tenormin (beta shira)] 25 mg PO DAILY 04/03/17 Surgical History: - - Appendectomy, BLTL. 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 Lives: Spouse/ Significant Other Smoking Status: Current some day smoker Tobacco Use: Cigarettes Alcohol: None Drugs: None - *Family History Maternal History Items: No pertinent history Paternal History Items: Cancer Review of Systems Constitutional: Reports: - - complete ROS negative except as documented in HPI Patient Problems: Active and Suspected Problems left sided paresthesias (Acute) Left leg weakness (Acute) Stroke (Acute) - Physical Exam General: Alert, Oriented x3, Cooperative HEENT: Atraumatic, PERRLA, EOMI, Normocephalic Neck: Supple, No JVD, Negative Carotid Bruits Lungs: Clear to auscultation, Normal air movement Cardiovascular: Regular rate, No murmurs Abdomen: Bowel Sounds Present, Soft, Non Tender Extremities: No edema, Capillary Refill Less than 3 Seconds Skin: No rashes, No breakdown Musculoskeletal: No Tenderness to Palpation of Joints or Extremities Neurological: - - consious, alert, AoA x3, CN 2-12 grossly intact, power 5/5 right UE/LE, 4/5 Left UE/LE, drift present Left UE, Plantars right flexor, left extensor, mild sensory loss to light touch left side, no cerebellar signs, Reflexes + B/L B/S/T/K/A, gait deferred, NIHSS 2 at present. Psych/Mental Status: Normal Affect, Appropriate Vital Signs Temp Pulse Resp BP Pulse Ox 98.3 F 65 18 168/84 H 99 04/04/17 13:35 04/04/17 13:35 04/04/17 13:35 04/04/17 13:35 04/04/17 13:35 Oxygen Delivery Method Room Air Body Mass Index (BMI) 25.7 Intake and Output for Last 24 Hours Intake Total 1080 / 1442 360 / 360 Balance 1080 / 1442 360 / 360 Laboratory Tests Past 24 Hrs Assessment/Plan Active and Suspected Problems left sided paresthesias (Acute) Left leg weakness (Acute) Stroke (Acute) The patient is a 66 year old CF with PMH HTN, COPD, Anxiety, panic attack admitted with acute onset left side weakness and numbness. Per patient she woke up yesterday (04/03/17) with left sided numbness and weakness, could not walk due to weakness, slid down the bed, NIHSS was 2 on admission, was not a tpa candidate, MRI brain done on admission showed acute right thalamic stroke/right IC stroke, MRA head/neck did not show any hemodynamically significant stenosis or occlusion. At present patient continues to have left sided weakness and numbness but denies any QUICK or visual disturbances. Patient lives with her , does not need any assistance for her ADLs, denies any frequent falls, does drive, does not use cane or walker to ambulate. Patient was not taking ASA prior to admission. Impression Right Thalamic/IC acute stroke Plan -Recommend ASA 81 mg daily and Plavix 75 mg daily. Dual AP for 1 month then switch to single AP. Bleeding risks discussed in detail with the patient and family, they understand and agree with the same. -Recommend Lipitor 80 mg PO q hs -MRI brain and MRA head/neck images reviewed -TTE-EF 65%, mildly dilated LA, no PFO -LDL-75, Gly6e-o -Recommend 30 day event recorder on discharge -Patient counseled stroke risk factors, counseled to stop smoking which increases stroke risk, patient understands the same. -Goal BP < 130/80 mmHg and Hba1c < 7%. -GI/DVT prophylaxis -Recommend PT/OT -Fall precautions. -Follow up with Neurology as outpatient in 2-3 weeks -Thank you for allowing us to participate in patients care and management I spent 60 minutes taking history, doing physical examination, reviewing medical records, coordinating care and counseling the patient. Code Visit Inpatient E AND M: [id number] Init Hosp L3 04/12/17 0830 <Electronically signed by Hermelindo Rodriguez MD> Date Hermelindo Rodriguez MD Cosigner Signature (if applicable): Date CC: Carrol Rodriguez MD; Alix Bonner DO Signed BASIC METABOLIC Collected: 04/12/2017 Status: F Source: KARLA PROFILE (BMP) 5:35 AM [facility] REPOSITORY TYPE CODE TESTS RESULT OUT OF RANGE REFERENCE UNITS LAB L501.0100 74-106 mg/dL Normal GLU 94 LAB L501.1000 7-18 mg/dL High BUN 22 LAB L501.1100 0.55-1.02 mg/dL Normal 0.93 CREAT,SERUM Result Comment: The validity of the calculated GFR AND GFRAA in patients over 70 years has not been determined. Clinical correlation is essential. LAB L501.1110 >60 mL/min Normal EST GFR 64 Result Comment: Non- GFR Calc LAB L501.1115 >60 mL/min Normal EST GFR - AA 78 Result Comment: GFR Calc LAB L501.1255 ml/min Normal Estimated CRCL 50.55 LAB L501.1300 10-20 RATIO High BUN/CRE 23.7 LAB L501.2200 8.5-10 mg/dL Normal .1 CA 8.5 LAB L501.5300 136-14 mmol/L Low 5 NA 131 LAB L501.5600 3.5-5. mmol/L Normal 1 K 4.3 LAB L501.5900 98-107 mmol/L Normal CL 103 LAB L501.6100 21.0-3 mmol/L Normal 2.0 CO2 22.0 LAB L501.6200 5-15 Normal GAP 6 Performed By: #### L500.2500 #### [facility] [address] [place], [place], [address] BASIC METABOLIC Collected: 04/11/2017 Status: F Source: KARLA PROFILE (BMP) 5:35 AM [facility] REPOSITORY TYPE CODE TESTS RESULT OUT OF RANGE REFERENCE UNITS LAB L501.0100 74-106 mg/dL Normal GLU 88 LAB L501.1000 7-18 mg/dL Normal BUN 18 LAB L501.1100 0.55-1.02 mg/dL Normal 0.91 CREAT,SERUM Result Comment: The validity of the calculated GFR AND GFRAA in patients over 70 years has not been determined. Clinical correlation is essential. LAB L501.1110 >60 mL/min Normal EST GFR 66 Result Comment: Non- GFR Calc LAB L501.1115 >60 mL/min Normal EST GFR - AA 80 Result Comment: GFR Calc LAB L501.1255 ml/min Normal Estimated CRCL 51.66 LAB L501.1300 10-20 RATIO Normal BUN/CRE 19.7 LAB L501.2200 8.5-10 mg/dL Normal .1 CA 8.6 LAB L501.5300 136-14 mmol/L Low 5 NA 129 LAB L501.5600 3.5-5. mmol/L Normal 1 K 3.8 LAB L501.5900 98-107 mmol/L Normal CL 99 LAB L501.6100 21.0-3 mmol/L Normal 2.0 CO2 22.0 LAB L501.6200 5-15 Normal GAP 8 Performed By: #### L500.2500 #### [facility] [address] [place], [place], [id number] URINE SODIUM Collected: 04/10/2017 Status: F Source: KARLA 1:30 PM [facility] REPOSITORY Order Comment: Comments: RANDOM SODIUM TYPE CODE TESTS RESULT OUT OF RANGE REFERENCE UNITS LAB L501.5500 Not Establ. mmol/L Normal UR NA 43 Performed By: #### L501.5500 #### [facility] [address] [place], [address] BASIC METABOLIC Collected: 04/10/2017 Status: F Source: KARLA PROFILE (BMP) 5:25 AM [facility] REPOSIT[facility] TYPE CODE TESTS RESULT OUT OF RANGE REFERENCE UNITS LAB L501.0100 74-106 mg/dL Normal GLU 89 LAB L501.1000 7-18 mg/dL High BUN 20 LAB L501.1100 0.55-1.02 mg/dL Normal 0.78 CREAT,SERUM Result Comment: The validity of the calculated GFR AND GFRAA in patients over 70 years has not been determined. Clinical correlation is essential. LAB L501.1110 >60 mL/min Normal EST GFR 78 Result Comment: Non- GFR Calc LAB L501.1115 >60 mL/min Normal EST GFR - AA 95 Result Comment: GFR Calc LAB L501.1255 ml/min Normal Estimated CRCL 60.27 LAB L501.1300 10-20 RATIO High BUN/CRE 25.5 LAB L501.2200 8.5-10 mg/dL Low .1 CA 8.2 LAB L501.5300 136-14 mmol/L Low 5 NA 125 LAB L501.5600 3.5-5. mmol/L Low 1 K 3.4 LAB L501.5900 98-107 mmol/L Low CL 96 LAB L501.6100 21.0-3 mmol/L Normal 2.0 CO2 21.0 LAB L501.6200 5-15 Normal GAP 8 Performed By: #### L500.2500 #### [facility] [address] [place], [address] PHOSPHORUS Collected: 04/10/2017 Status: F Source: KARLA 5:25 AM [facility] REPOSIT[facility] TYPE CODE TESTS RESULT OUT OF RANGE REFERENCE UNITS LAB L501.2300 2.5-4.9 mg/dL Normal PHOS 2.9 Performed By: #### L501.2300 #### [facility] [address] [place], [address] BASIC METABOLIC Collected: 04/09/2017 Status: F Source: KARLA PROFILE (BMP) 5:25 AM [facility] REPOSITORY TYPE CODE TESTS RESULT OUT OF RANGE REFERENCE UNITS LAB L501.0100 74-106 mg/dL Normal GLU 89 LAB L501.1000 7-18 mg/dL High BUN 24 LAB L501.1100 0.55-1.02 mg/dL Normal 0.99 CREAT,SERUM Result Comment: The validity of the calculated GFR AND GFRAA in patients over 70 years has not been determined. Clinical correlation is essential. LAB L501.1110 >60 mL/min Normal EST GFR 60 Result Comment: Non- GFR Calc LAB L501.1115 >60 mL/min Normal EST GFR - AA 72 Result Comment: GFR Calc LAB L501.1255 ml/min Normal Estimated CRCL 47.49 LAB L501.1300 10-20 RATIO High BUN/CRE 24.2 LAB L501.2200 8.5-10 mg/dL Normal .1 CA 8.5 LAB L501.5300 136-14 mmol/L Low 5 NA 128 LAB L501.5600 3.5-5. mmol/L Normal 1 K 3.5 LAB L501.5900 98-107 mmol/L Low CL 96 LAB L501.6100 21.0-3 mmol/L Normal 2.0 CO2 24.0 LAB L501.6200 5-15 Normal GAP 8 Performed By: #### L500.2500 #### [facility] [address] [place], [address] H AND P W/ COSIGN Observed: 04/08/2017 Status: F Source: LEWIS 4:24 PM [facility] REPOSITORY [facility] Medical Records Department [address] [facility] [place] [address] H AND P w/ Cosign 04/06/17 0859 MR#: [id number] Acct: [id number] Name: DONAL JOHNSON Rep #: [id number] : 1950 66 From: Jamia RODRIGUEZ PCP: Alix Bonner DO Status: ADM IN Y Location: [place] [address] ADDENDUM by Carrol Rodriguez MD on 04/08/17 at 1624 Code Visit I have personally examined the patient at bedside. Please see DAYANNA Lind's note as below for further complete details. I have discussed the management plan for the patient in detail with ACCOUNT RECEIVABLE CLERK Jamia Lind and please see the plan as noted below. 66 yr CF admitted to [facility] IP with debility post stroke for > 3 hrs therapy daily with the goal of returning home at or near her prior level of functional independence. Patient was admitted with acute right thalamic/IC stroke to [facility] on 04/03/17, continues to endorse left sided weakness, the MRI brain done on admission showed acute right thalamic stroke/right IC stroke, MRA of her head/neck did not show any hemodynamically significant stenosis or occlusion., - TTE-EF 65%, mildly dilated LA, no PFO, started on dual AP for 1 month, on statins, recommend 30 day event recorder on discharge, continue medical management of HTN, COPD, Anxiety, panic attack, hospitalist consult, PT/OT, GI/DVT prophylaxis, fall precautions. Inpatient E AND M: [id number] Init Hosp L3 04/08/17 1624 <Electronically signed by Hermelindo Rodriguez MD> Date Hermelindo Rodriguez MD cc: DAYANNA Lind; Carrol Rodriguez MD; Alix Bonner DO * Signed History of Present Illness Date of Admission: 04/05/17 Chief Complaint: CVA The patient is a 66 year old female, who was admitted to the rehab unit for rehabilitation after suffering a Right Thalamic/IC acute stroke. She has a history of HTN, COPD, Anxiety, panic attack. Per patient she woke up on Sunday, (04/03/17) with left sided numbness and weakness, could not walk due to weakness, slid down the bed, NIHSS was 2 on admission, was not a TPA candidate. The MRI brain done on admission showed acute right thalamic stroke/right IC stroke, MRA of her head/neck did not show any hemodynamically significant stenosis or occlusion. At present patient continues to have some left sided weakness which has improved greatly per the patient and some numbness. But denies any QUICK or visual disturbances. The Patient lives with her , in a Ranch style home with 2 steps to get into the house. does not need any assistance for her ADLs, denies any frequent falls, does drive, does not use cane or walker to ambulate. She was previously completely functionally independent and is admitted to the rehab unit in order to restore her previous level of functional independence. She did not take aspirin previously at home. 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 Lives: Spouse/ Significant Other Smoking Status: Heavy Smoker (>10/day) Tobacco Use: Cigarettes Alcohol: Occasional Drugs: None - *Family History Maternal History Items: No pertinent history Paternal History Items: Cancer Review of Systems Constitutional: Denies: Chills, Fever, Weight Change HEENT: Denies: Head Aches, Sinus Congestion, Sinus Drainage Cardiovascular: Denies: Chest Pain, Palpitations Respiratory: Denies: Cough, Shortness of breath at rest, Sputum production Gastrointestinal: Denies: Abdominal Pain, Nausea, Vomiting Genitourinary: Denies: Dysuria Musculoskeletal: Denies: Joint Pain, Joint Tenderness Skin: Denies: Rash, Wounds Neurological: Denies: Numbness, Tingling, Focal weakness Psychiatric: Denies: Anxiety, Depression, Homicidal Ideations, Suicidal Ideations Hematologic/ Lymphatic: Denies: Easy Bruising, Easy Bleeding VTE Information - Inpt Only VTE Present on Admission: No VTE Mechan Device Prophylaxis: SCD's, Knee High LORENZO Hose VTE Pharm Prophylaxis ordered?: Yes - Physical Exam General: Alert, Oriented x3, Cooperative HEENT: Atraumatic, PERRLA, EOMI, Normocephalic Neck: Supple, No JVD, Negative Carotid Bruits Lungs: Clear to auscultation, Diminished, - - moderate effort, mild decrease BL bases, Cardiovascular: Regular rate, No murmurs Abdomen: Bowel Sounds Present, Soft, Non Tender Extremities: No edema, Capillary Refill Less than 3 Seconds Skin: No rashes, No breakdown Musculoskeletal: No Tenderness to Palpation of Joints or Extremities Neurological: Cranial nerves II-XII grossly intact, - - ongoing LLE 4/5 strength, still mild drift LUE, L sided paresthesias present but she notes subjectively improved, face remains uninvolved, gait imbalance. Psych/Mental Status: Normal Affect, Appropriate Vital Signs Temp Pulse Resp BP Pulse Ox 97.7 F L 71 16 147/73 H 94 04/05/17 20:52 04/05/17 20:52 04/05/17 20:52 04/05/17 20:52 04/05/17 20:52 Oxygen Delivery Method Room Air Weight: 64.524 kg Body Mass Index (BMI) 25.2 Finger Stick Blood Glucose 90 Intake and Output for Last 24 Hours Intake Total 360 / 360 Output Total 300 / 300 Balance 360 / 360 -300 / -300 Laboratory Tests Past 24 Hrs WBC 6.2 RBC 4.24 Hgb 12.7 Hct 38.0 Active Medications Acetaminophen (Tylenol) 650 mg PO Q6H PRN PRN PRN Reason: Mild Pain (0-3/10)/Headache Last Admin: 04/06/17 07:52 Dose: 650 mg Al Hydroxide/Mg Hydroxide (Mylanta Ii) 30 ml PO Q6H PRN PRN PRN Reason: Gastric burning Albuterol Sulfate (Ventolin Aerosols) 2.5 mg INHALATION Q2H PRN PRN PRN Reason: dyspnea, wheezing' Albuterol/Ipratropium (Duoneb) 3 ml INHALATION Q6HWA.RT [facility] Last Admin: 04/06/17 07:30 Dose: Not Given Amlodipine Besylate (Norvasc) 10 mg PO DAILY [facility] Last Admin: 04/06/17 07:47 Dose: 10 mg Aspirin (Aspirin, Baby) 81 mg PO DAILY@0800 [facility] Last Admin: 04/06/17 07:48 Dose: 81 mg Atorvastatin Calcium (Lipitor) 80 mg PO DAILY [facility] Last Admin: 04/06/17 07:47 Dose: 80 mg Bisacodyl (Dulcolax) 10 mg RECTAL .PRN X 1 PRN PRN Reason: Constipation Budesonide (Pulmicort Aerosol) 0.5 mg INHALATION Q12H.RT [facility] Last Admin: 04/06/17 07:30 Dose: Not Given Citalopram Hydrobromide (Celexa) 20 mg PO DAILY [facility] Last Admin: 04/06/17 07:48 Dose: 20 mg Clopidogrel Bisulfate (Plavix) 75 mg PO DAILY [facility] Last Admin: 04/06/17 07:48 Dose: 75 mg Diphenhydramine HCl (Benadryl) 25 mg PO QHS PRN PRN PRN Reason: PRURITIS Last Admin: 04/05/17 21:02 Dose: 25 mg Enoxaparin Sodium (Lovenox) 40 mg SC DAILY@0600 [facility] Last Admin: 04/06/17 05:12 Dose: 40 mg Famotidine (Pepcid) 20 mg PO BID [facility] Last Admin: 04/06/17 07:47 Dose: 20 mg Hydrochlorothiazide (Hctz) 25 mg PO DAILY [facility] Last Admin: 04/06/17 07:47 Dose: 25 mg Lisinopril (Zestril) 20 mg PO DAILY [facility] Last Admin: 04/06/17 07:47 Dose: 20 mg Magnesium Hydroxide (Milk Of Magnesia) 30 ml PO .PRN X 1 PRN PRN Reason: Constipation Senna/Docusate Sodium (Senokot-S, Donita-Colace) 2 tablet PO DAILY [facility] Last Admin: 04/06/17 07:48 Dose: 2 tablet Assessment/Plan Debility s/p tight thalamic/IC stroke. goal of rehab is protestant of functional independence. Plan: - Physical therapy for gait and balance - Occupational Therapy for ADLs - Speech therapy - As needed analgesics - Bowel protocol - Stroke prevention -> ASA 81 mg daily and Plavix 75 mg daily. Dual AP for 1 month then switch to single AP and Lipitor 80mg - DVT Prophylaxis: SCDs, lovenox. - TTE-EF 65%, mildly dilated LA, no PFO - -MRI brain and MRA head/neck MRA of the head with incomplete chilkat of Cervantes with no MRA evidence of hemodynamically significant stenosis with generally ectatic arteries of the chilkat of Cervantes, MRA of the neck without evidence for vascular occlusion - Will obtain a 30 day event monitor on discharge - Goal of BP <130/80, and A1C < 7% - Hypertension: BP above goal 130/80 still, increased HCTZ/Lisinopril the day prior and added norvasc, will monitor today and if pressures do not improve will increase ACEI further. - Tobacco Abuse: Encouraged cessation, inpatient consultation per RT, NR if desired. - Anxiety: Continue home Celexa regimen, Ativan PRN. - Chronic COPD: ATC duonebs, PRN albuterol, HOB, IS parameters. - Hyponatremia -> Na 127, hospitalist ordered a Liter of NS 04/06/17 1559 <Electronically signed by Jamia Lind ACCOUNT RECEIVABLE CLERK-C> Date Jamia Lind ACCOUNT RECEIVABLE CLERK-C 04/08/17 1615<Electronically signed by Hermelindo Rodriguez MD> Cosigner Signature (if applicable): Date Hermelindo Rodriguez MD CC: ACCOUNT RECEIVABLE CLERK Jamia Lind; Carrol Rodriguez MD; Alix Bonner DO Signed BASIC METABOLIC Collected: 04/08/2017 Status: F Source: KARLA PROFILE (BMP) 8:30 AM [facility] REPOSITORY TYPE CODE TESTS RESULT OUT OF RANGE REFERENCE UNITS LAB L501.0100 74-106 mg/dL High GLU 127 Result Comment: Fasting Glucose result greater than or equal to 126 mg/dL suggests DIABETES MELLITUS per A.D.A. criteria. LAB L501.1000 7-18 mg/dL Normal BUN 17 LAB L501.1100 0.55-1.02 mg/dL Normal CREAT,SERUM 0.96 Result Comment: The validity of the calculated GFR AND GFRAA in patients over 70 years has not been determined. Clinical correlation is essential. LAB L501.1110 >60 mL/min Normal EST GFR 62 Result Comment: Non- GFR Calc LAB L501.1115 >60 mL/min Normal EST GFR - AA 76 Result Comment: GFR Calc LAB L501.1255 ml/min Normal Estimated CRCL 48.97 LAB L501.1300 10-20 RATIO Normal BUN/CRE 17.8 LAB L501.2200 8.5-10 mg/dL Normal .1 CA 8.5 LAB L501.5300 136-14 mmol/L Low 5 NA 125 LAB L501.5600 3.5-5. mmol/L Low 1 K 2.8 LAB L501.5900 98-107 mmol/L Low CL 89 LAB L501.6100 21.0-3 mmol/L Normal 2.0 CO2 24.0 LAB L501.6200 5-15 Normal GAP 12 Performed By: #### L500.2500 #### [facility] [address] [place], [address] CORTISOL SERUM Collected: 04/08/2017 Status: F Source: KARLA 8:30 AM [facility] REPOSITORY TYPE CODE TESTS RESULT OUT OF REFERENCE UNITS RANGE LAB L509.6000 3.09-22.40 ug/dL High CORTISOL 29.10 Result Comment: Adult (AM) 4.30 - 22.40 ug/dL Adult (PM) 3.09 - 16.66 ug/dL Performed By: #### L509.6000 #### [facility] [place], [address] URINE SODIUM Collected: 04/07/2017 Status: F Source: LEWIS 2:10 PM [facility] REPOSITORY TYPE CODE TESTS RESULT OUT OF RANGE REFERENCE UNITS LAB L501.5500 Not Establ. mmol/L Normal UR NA 75 Performed By: #### L501.5500 #### [facility] [address] [place], [address] CREATININE, URINE Collected: 04/07/2017 Status: F Source: KARLA (RANDOM) 2:10 PM [facility] REPOSITORY TYPE CODE TESTS RESULT OUT OF RANGE REFERENCE UNITS LAB L501.1200 NO RANGE EST. mg/dL Normal UR CREAT < 13.00 Performed By: #### L501.1200 #### [facility] [address] [place], [address] OSMOLALITY, URINE Collected: 04/07/2017 Status: F Source: KARLA 2:10 PM [facility] REPOSITORY TYPE CODE TESTS RESULT OUT OF RANGE REFERENCE UNITS LAB L501.7400 mOsm/KG Normal 216 OSMOLALITY,U R Result Comment: OSMOLALITY URINE REFERENCE INTERVALS 24-hour Urine 300 - 900 mOsm/kg Random Urine 50 - 1400 mOsm/kg After 12 Hr fluid restriction >850 mOsm/kg Performed By: #### L501.7400 #### [facility] [place], [address] COMPREHENSIVE METABOLIC Collected: 04/07/2017 Status: F Source: KARLA [facility] 9:20 AM [facility] REPOSITORY TYPE CODE TESTS RESULT OUT OF RANGE REFERENCE UNITS LAB L501.0100 74-106 mg/dL High GLU 118 Result Comment: Fasting Glucose result from 110 to <126 mg/dL suggests IMPAIRED HOMEOSTASIS per A.D.A. criteria. LAB L501.1000 7-18 mg/dL Normal BUN 13 LAB L501.1100 0.55-1.02 mg/dL Normal CREAT,SERUM 0.96 Result Comment: The validity of the calculated GFR AND GFRAA in patients over 70 years has not been determined. Clinical correlation is essential. LAB L501.1110 >60 mL/min Normal EST GFR 62 Result Comment: Non- GFR Calc LAB L501.1115 >60 mL/min Normal EST GFR - AA 75 Result Comment: GFR Calc LAB L501.1255 ml/min Normal Estimated CRCL 48.97 LAB L501.1300 10-20 RATIO Normal BUN/CRE 13.5 LAB L501.1500 6.4-8. g/dL Normal 2 T PROT 7.8 LAB L501.1800 3.2-5. g/dL Normal 0 ALB 3.5 LAB L501.1950 2.2-4. g/dL High 2 GLOB 4.3 LAB L501.2000 0.9-2. RATIO Low 4 A/G 0.8 LAB L501.2200 8.5-10 mg/dL Normal .1 CA 8.5 LAB L501.4100 15-37 U/L Normal AST 37 LAB L501.4305 45-117 U/L Normal ALK P 68 LAB L501.4405 13-56 U/L Normal ALT 33 Result Comment: Please note revised ALT reference range effective 2017. LAB L501.4600 0.20-1.00 mg/dL Normal T BILI 0.50 LAB L501.5300 136-145 mmol/L Low NA 124 LAB L501.5600 3.5-5.1 mmol/L Low K 3.3 LAB L501.5900 98-107 mmol/L Low CL 90 LAB L501.6100 21.0-32.0 mmol/L Normal CO2 26.0 LAB L501.6200 5-15 Normal GAP 8 Performed By: #### L500.4050 #### [facility] [address] [place], [address] EMERGENCY DEPARTMENT Observed: 04/06/2017 Status: F Source: LEWIS SUMMARY 8:04 AM [facility] REPOSITORY [facility] Medical Records Department [address] [place] [address] Emergency Department Summary 04/03/17 0556 MR#: [id number] Acct: [id number] Name: DONAL JOHNSON Rep #: [id number] : 1950 66 From: Ricky Mancilla MD PCP: Alix Bonner DO Status: DIS IN - ER Visit Summary Date of Service: 04/03/17 Chief Complaint: Dizziness, left leg weakness, paresthesias History of Present Illness: The patient is a 66 F who woke up with some dizziness, left leg weakness and paresthesias. She states that when she woke up she felt dizzy and she tried to walk on her leg and she fell. She did not sustain any injuries from this. Her dizziness has improved but the leg weakness and paresthesias continue. She denies any headache. No nausea or vomiting. No history of strokes. Physical Examination: Vital signs are reviewed. HEENT exam unremarkable. Heart is regular rate and rhythm without murmurs. Lungs are clear to auscultation. Abdomen is soft and nontender. Extremities reveal no edema. NIH stroke scale is 2. She scores 1 left leg weakness and 1 paresthesias Test Results: CAT scan of the head reveals chronic changes. Laboratory studies are pending at this time. Emergency Department Course and Treatment: CAT scan shows no changes. I am concerned for possible TIA or stroke. Patient will require admission for further testing. Treatment Plan: Admission to the hospital Disposition: Admit Impression: Left leg weakness with paresthesias This note was generated with Klashation software. It may contain incorrect words, spelling, and punctuation that were not noted in review of the chart prior to signing ED Disposition - Plan for ED Patient: Chief Complaint: Fall Referrals: Alix Bonner, DO [Primary Care Provider] - What to do if you have Problems For any increased pain, shortness of breath, bleeding, nausea or vomiting, chest pain, or any unexpected problems, contact your Primary Care Provider. Call [facility] ([phone]) or report to the closest Emergency Room. Call 911 if necessary. 04/06/17 0804 <Electronically signed by Ricky Mancilla MD> Date Ricky Mancilla MD Cosigner Signature (If Indicated): Date CC: Alix Bonner DO COMPREHENSIVE METABOLIC Collected: 04/06/2017 Status: F [facility] REPOSITORY TYPE CODE TESTS RESULT OUT OF RANGE REFERENCE UNITS LAB L501.0100 70-110 mg/dL Normal GLU 102 LAB L501.1000 7-18 mg/dL Normal BUN 13 LAB L501.1100 0.55-1.02 mg/dL Normal 0.96 CREAT,SERUM Result Comment: The validity of the calculated GFR AND GFRAA in patients over 70 years has not been determined. Clinical correlation is essential. LAB L501.1110 >60 mL/min Normal EST GFR 62 Result Comment: Non- GFR Calc LAB L501.1115 >60 mL/min Normal EST GFR - AA 75 Result Comment: GFR Calc LAB L501.1255 ml/min Normal Estimated CRCL 48.97 LAB L501.1300 10-20 RATIO Normal BUN/CRE 13.5 LAB L501.1500 6.4-8. g/dL Normal 2 T PROT 8.2 LAB L501.1800 3.2-5. g/dL Normal 0 ALB 3.6 LAB L501.1950 2.2-4. g/dL High 2 GLOB 4.6 LAB L501.2000 0.9-2. RATIO Low 4 A/G 0.8 LAB L501.2200 8.5-10 mg/dL Normal .1 CA 8.7 LAB L501.4100 15-37 U/L Normal AST 25 LAB L501.4305 45-117 U/L Normal ALK P 69 LAB L501.4405 13-56 U/L Normal ALT 22 Result Comment: Please note revised ALT reference range effective 2017. LAB L501.4600 0.20-1.00 mg/dL Normal T BILI 0.60 LAB L501.5300 136-145 mmol/L Low NA 128 LAB L501.5600 3.5-5.1 mmol/L Normal K 3.9 LAB L501.5900 98-107 mmol/L Low CL 95 LAB L501.6100 21.0-32.0 mmol/L Normal CO2 26.0 LAB L501.6200 5-15 Normal GAP 7 Performed By: #### L500.4050, L501.2300, L501.5200 #### [facility] [address] [place], [place], [address] PHOSPHORUS Collected: 04/06/2017 Status: F Source: KARLA 7:05 AM [facility] REPOSITORY TYPE CODE TESTS RESULT OUT OF RANGE REFERENCE UNITS LAB L501.2300 2.5-4.9 mg/dL Normal PHOS 3.7 Performed By: #### L500.4050, L501.2300, L501.5200 #### [facility] [address] [place], [place], [id number] MAGNESIUM Collected: 04/06/2017 Status: F Source: KARLA 7:05 AM [facility] REPOSITORY TYPE CODE TESTS RESULT OUT OF RANGE REFERENCE UNITS LAB L501.5200 1.6-2.6 mg/dL Normal MG 1.9 Result Comment: Please note revised Magnesium reference range effective 2017. Performed By: #### L500.4050, L501.2300, L501.5200 #### [facility] [address] [place], [place], [address] CBC-COMPLETE BLOOD CNT Collected: 04/06/2017 Status: F Source: KARAL NO DIFF 7:05 AM [facility] REPOSITORY TYPE CODE TESTS RESULT OUT OF RANGE REFERENCE UNITS LAB L100.1000 4.4-11.0 K/mm3 Normal WBC 6.2 LAB L100.1200 4.2-5.4 M/mm3 Normal RBC 4.24 LAB L100.1300 12.0-15.0 g/dl Normal HGB 12.7 LAB L100.1400 37-47 % Normal HCT 38.0 LAB L100.1500 81-99 fL Normal MCV 89.6 LAB L100.1600 27.0-32.0 pg Normal MCH 30.0 LAB L100.1700 32-36 g/gl Normal MCHC 33.4 LAB L100.1810 11.6-14.6 % Normal RDW CV 14.0 LAB L100.1820 35.1-43.9 fl High RDW SD 46.1 LAB L100.1900 150-450 K/mm3 Normal PLT 239 LAB L100.2000 6.2-12.0 fl Normal MPV 9.6 Performed By: #### L100.0500 #### [facility] [address] [place], [address] DISCHARGE SUMMARY Observed: 04/05/2017 Status: F Source: LEWIS 12:48 PM [facility] REPOSITORY [facility] Medical Records Department [address] [place] [address] Discharge Summary 04/05/17 1245 MR#: [id number] Acct: [id number] Name: DONAL JOHNSON Rep #: [id number] : 1950 66 From: Barbara Avelar PCP: Alix Bonner DO Status: ADM IN Location: [place] [address] Discharge Date and Diagnosis - Problem List Patient Problems: Active and Suspected Problems left sided paresthesias (Acute) Left leg weakness (Acute) Stroke (Acute) Date of Admission: 04/03/17 Date of Discharge: 04/05/17 - Primary Discharge Diagnosis Active and Suspected Problems left sided paresthesias (Acute) Left leg weakness (Acute) Stroke (Acute) (1) L sided weakness (LLE) and L sided Paresthesias secondary to 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 - Secondary Discharge Diagnosis Chronic Problems COPD (chronic obstructive pulmonary disease) (Chronic) HTN (hypertension) (Chronic) Tobacco use (Chronic) Hospital Course and Treatment Dr. Rodriguez Neurology Operations: None Procedures: 2-D Echocardiogram, EKG Summary of Care Provided: The patient is a 66 y/o F w/ PMHx: Chronic COPD, HTN, Anxiety, Tobacco use who presented to the [facility] ED on 04/03/17 w/ history of awakening from bed at 5 am, noted to feel dizzy, fell, noted left leg weakness with paresthesias to the LLE. In the ED work-up included CT Head which was unremarkable. All labs are pending upon ED call for evaluation of patient. Patient was administered ASA in the ED following discussion with ED physician as not taking routinely at home. Admitted to PCU, MRI brain w/ acute infarct involving the right thalamic and posterior limb of the right internal capsule, MRA of the head with incomplete chilkat of Cervantes with no MRA evidence of hemodynamically significant stenosis with generally ectatic arteries of the chilkat of Cervantes, MRA of the neck without evidence for vascular occlusion although technically limited secondary to motion, echo with normal LV systolic function, EF 65%, mildly enlarged LA, mild MV insufficiency, mild TV insufficiency, trivial PV insufficiency, RVSP 41 mmHg. TSH mildly elevated with normal FT4, subclinical with repeat outpatient. Mag normal. FLP obtained and maintained on statin. Neurology consulted with recommendations including ASA 81 mg daily and Plavix 75 mg daily w/ planned dual AP for 1 month then switch to single AP, recommendation 30 day event recorder upon discharge from acute rehabilitation, Goal BP < 130/80 mmHg and Hba1c < 7% with additionally plan for follow up with Neurology as outpatient in 2-3 weeks. PT, OT consulted with recommendation for acute rehabilitation which was arranged. During admission, continued to attempt to achieve BP above goal 130/80, with increased lisinopril and HCTZ as well as addition of norvasc. Recommended once appropriate for discharge from acute rehabilitation to follow-up not only with Neurology but also with PCP within 3-5 days. Discharge Activity: Use Walker May resume sexual activity in: No Restrictions Weight Bearing Status: Weight bearing as tolerated Call your doctor if you observe: Fever of 101 or Higher, Inability to urinate, Inability to have a bowel movement, Shortness of breath, Dizziness, Fainting spells, Chest pain, Uncontrolled pain Home Medications: Medications to take at Discharge Citalopram [Celexa] 20 mg PO DAILY 04/03/17 Fluticasone/Salmeterol [Advair 250-50 Diskus] 1 puff PO BID 04/03/17 Acetaminophen Liquid [Tylenol Liquid] 650 mg NG Q4H PRN PRN udc 04/05/17 Albuterol Aerosols [Ventolin Aerosols] 2.5 mg INHALATION Q2H PRN PRN vial.neb. 04/05/17 Amlodipine [Norvasc] 10 mg PO DAILY tablet 04/05/17 Aspirin [Aspirin, Baby] 81 mg PO DAILY@0800 tab.chew 04/05/17 Atorvastatin Calcium [Lipitor] 80 mg PO DAILY tablet 04/05/17 Clopidogrel Bisulfate [Plavix] 75 mg PO DAILY tablet 04/05/17 Famotidine [Pepcid] 20 mg PO BID tablet 04/05/17 Hydrochlorothiazide [Hctz] 25 mg PO DAILY tablet 04/05/17 Lisinopril [Zestril] 20 mg PO DAILY tablet 04/05/17 Mag Hydrox/Al Hydrox/Simeth [Mylanta II] 30 ml PO Q6H PRN PRN udc 04/05/17 Primary Care Physician: Alix Bonner DO [Primary Care Provider] - Please follow up with your Primary Care Physician in: Follow- up within 3-5 days after Acute Rehab discharge. Please Follow Up With: Hermelindo Rodriguez MD When: Follow-up in 2-3 weeks after Acute Rehab discharge. Patient Instructions: Intimacy After Stroke, Effects of a Stroke on the Brain and Body, Stroke and Heart Disease, Controlling Your Cholesterol, Controlling High Blood Pressure, Why Do You Smoke?, Planning to Quit Smoking, Getting Support for Quitting Smoking, Coping with Smoking Withdrawal, Staying Smoke-Free Disposition: Acute care Hospital Minutes spent on discharge:: 35 Patient Condition:: Fair Meaningful Use Info Meaningful Use Diagnoses (Choose all that apply): Ischemic CVA - CVA Therapy Assessed for PT,OT and/or ST?: Yes - Ischemic Stroke Antithrombotic order at d/c?: Yes Dx of Atrial fib/flutter?: No Anticoagulant at discharge?: No Reason anticoagulant not ordered: Treatment not Indicated Statins at discharge?: Yes Primary Dx Acute Ischemic CVA?: Yes IV tPA ordered during stay?: No Reason IV t-PA not ordered: Treatment not Indicated Code Visit Inpatient E AND M: [id number] Disch Hosp 04/05/17 1248 <Electronically signed by Barbara Avelar > Date Barbara Avelar Cosigner Signature (if applicable): Date CC: Barbara Avelar; Alix Bonner DO Signed DISCHARGE INSTRUCTION Observed: 04/05/2017 Status: F Source: KARLA 11:40 AM [facility] REPOSITORY [facility] Medical Records Department [address] [place] [address] Instructions for Home/Discharge Instructions 04/05/17 1135 MR#: [id number] Acct: [id number] Name: DONAL JOHNSON Rep #: [id number] : 1950 66 From: Barbara Avelar PCP: Alix Bonner DO Status: ADM IN - Discharge Diagnoses Current Active Problems: Current Active and Chronic Problems COPD (chronic obstructive pulmonary disease) (Chronic) HTN (hypertension) (Chronic) Tobacco use (Chronic) left sided paresthesias (Acute) Left leg weakness (Acute) Stroke (Acute) (1) L sided weakness (LLE) and L sided Paresthesias secondary to 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 You will use the following diet at home:: Cardiac Your food should be the consistency of: Regular Your liquids should be the consistency of: Regular/Thin Discharge Activity: Use Walker May resume sexual activity in: No Restrictions Weight Bearing Status: Weight bearing as tolerated Call your doctor if you observe: Fever of 101 or Higher, Inability to urinate, Inability to have a bowel movement, Shortness of breath, Dizziness, Fainting spells, Chest pain, Uncontrolled pain Instructions: Intimacy After Stroke, Effects of a Stroke on the Brain and Body, Stroke and Heart Disease, Controlling Your Cholesterol, Controlling High Blood Pressure, Why Do You Smoke?, Planning to Quit Smoking, Getting Support for Quitting Smoking, Coping with Smoking Withdrawal, Staying Smoke-Free Additional Instructions: Neurology consulted with recommendations including: (1) ASA 81 mg daily and Plavix 75 mg daily w/ planned dual AP for 1 month then switch to single AP. (2) Recommendation 30 day event recorder upon discharge from acute rehabilitation. (3) Goal BP < 130/80 mmHg and Hba1c < 7%. (4) Follow-up with Neurology as outpatient in 2-3 weeks. Allergies/Adverse Reactions: Allergies No Known Allergies Allergy (Verified 04/03/17 05:56) Medications to take at Discharge Citalopram [Celexa] 20 mg PO DAILY 04/03/17 Fluticasone/Salmeterol [Advair 250-50 Diskus] 1 puff PO BID 04/03/17 Acetaminophen Liquid [Tylenol Liquid] 650 mg NG Q4H PRN PRN udc 04/05/17 Albuterol Aerosols [Ventolin Aerosols] 2.5 mg INHALATION Q2H PRN PRN vial.neb. 04/05/17 Amlodipine [Norvasc] 10 mg PO DAILY tablet 04/05/17 Aspirin [Aspirin, Baby] 81 mg PO DAILY@0800 tab.chew 04/05/17 Atorvastatin Calcium [Lipitor] 80 mg PO DAILY tablet 04/05/17 Clopidogrel Bisulfate [Plavix] 75 mg PO DAILY tablet 04/05/17 Famotidine [Pepcid] 20 mg PO BID tablet 04/05/17 Hydrochlorothiazide [Hctz] 25 mg PO DAILY tablet 04/05/17 Lisinopril [Zestril] 20 mg PO DAILY tablet 04/05/17 Mag Hydrox/Al Hydrox/Simeth [Mylanta II] 30 ml PO Q6H PRN PRN udc 04/05/17 Primary Care Physician: Alix Bonner DO [Primary Care Provider] - Please follow up with your Primary Care Physician in: Follow- up within 3-5 days after Acute Rehab discharge. Please Follow Up With: Hermelindo Rodriguez MD When: Follow-up in 2-3 weeks after Acute Rehab discharge. Proposed Discharge Date: 04/05/17 04/05/17 1140 <Electronically signed by Barbara Avelar > Date Barbara Avelar CC: Carrol Rodriguez MD; Alix Bonner DO 12 LEAD ELECTROCARDIOGRAM Observed: 04/05/2017 Status: F Source: KARLA 11:29 AM [facility] REPOSITORY [facility] Cardiovascular Services [address] [place] [address] 12 Lead EKG 04/03/17 0600 MR#: [id number] Acct: [id number] Name: DONAL JOHNSON Rep #: [id number] : 1950 66 From: Ludwig Villegas MD Attending Dr: Barbara Avelar Status: ADM IN Ordering Dr: Ricky Mancilla MD Date: 04/03/17 Location: [facility] Sex: F C Admitted: 04/03/17 Test Reason : FALL Blood Pressure : / mmHG Vent. Rate : 056 BPM Atrial Rate : 056 BPM P-R Int : 160 ms QRS Dur : 074 ms QT Int : 434 ms P-R-T Axes : 079 059 100 degrees QTc Int : 418 ms Sinus bradycardia Nonspecific ST and T wave abnormality Abnormal ECG Confirmed by BAKARI BRYANT, LUDWIG ([id number]), senior technical editor COURTNEY RIOS ([id number]) on 04/05/2017 11:29:11 AM Referred By: ANIVAL Confirmed By:LUDWIG VILLEGAS MD 04/05/17 1129 Date Ludwig Villegas MD CC: Alix Bonner DO Signed LIPID PROFILE Collected: 04/04/2017 Status: F Source: KARLA 5:05 AM [facility] REPOSITORY TYPE CODE TESTS RESULT OUT OF RANGE REFERENCE UNITS LAB L501.4900 200 mg/dL Normal CHOL 140 Result Comment: <200 mg/dL Desirable 200-240 mg/dL Borderline >240 mg/dL High Risk LAB L501.5000 mg/dL Normal TRIG 69 Result Comment: The drugs N-Acetylcysteine and Metamizole may falsely depress this assay. Serum Triglycerides Reference Interval Normal <150 mg/dL Borderline high 150 - 199 mg/dL High 200 - 499 mg/dL Very High > or = 500 mg/dL LAB L501.6400 mg/dL Normal HDL 51 Result Comment: The drugs N-Acetylcysteine and Metamizole may falsely depress this assay. Reference Range HDL <40 mg/dL Low HDL Cholesterol HDL >or= 60 mg/dL High HDL Cholesterol LAB L501.6500 0-130 mg/dL Normal LDL 75 LAB L501.6600 5-40 mg/dL Normal VLDL 14 Performed By: #### L500.4100 #### [facility] [address] [place], [address] URINALYSIS, COMPLETE Collected: 04/04/2017 Status: F Source: LEWIS 2:00 AM [facility] REPOSITORY Order Comment: Order Date: 04/04/17 How was Urine Obtained? CLEAN CATCH TYPE CODE TESTS RESULT OUT OF RANGE REFERENCE UNITS LAB L400.3000 Yellow COLOR Normal Yellow LAB L400.3050 Clear Normal CLARITY Sl. Cloudy LAB L400.3200 Normal mg/dl Normal GLUCOSE, UR Normal LAB L400.3300 Negative mg/dL Normal BILIRUBIN URINE Negative LAB L400.3400 Negative mg/dl Normal KETONE UR Negative LAB L400.3465 1.002-1.030 Normal SP.GR. DIPSTX 1.010 LAB L400.3550 5.0 - 8.0 pH UR Normal 7.0 LAB L400.3600 Negative mg/dl High PROT 15 DIPSTX LAB L400.3700 Normal mg/dl Normal UROBILI Normal LAB L400.3750 Negative Normal NITRITE UR Negative LAB L400.3780 Negative /ul High 10 OCCULT BLOOD-UR LAB L400.3800 Negative /ul LEUK Normal ESTERASE Negative LAB L400.4050 0-5 /hpf WBC Normal 0-5 SEEN LAB L400.4100 0-5 /hpf 0 Normal RBC-UA SEEN LAB L400.4150 5-10 /hpf SQUAM Normal EPI 0-5 SEEN LAB L400.4300 None Seen /hpf 1+ Normal BACTERIA LAB L400.4350 <or=2+ /hpf 0 Normal MUCUS, URINE SEEN Performed By: #### L400.0001 #### [facility] [address] [place], [address] HISTORY AND PHYSICAL Observed: 04/03/2017 Status: F Source: LEWIS EXAM 4:27 PM [facility] REPOSITORY [facility] Medical Records Department [address] [place] [address] History and Physical 04/03/17 0650 MR#: [id number] Acct: [id number] Name: DONAL JOHNSON Rep #: [id number] : 1950 66 From: Barbara Avelar PCP: Alix Bonner DO Status: ADM MARGA Y Location: [place] [address] ADDENDUM by Barbara Avelar on 04/03/17 at 1627 Code Visit MRI brain w/ acute infarct involving the right thalamic and posterior limb of the right internal capsule, MRA of the head with incomplete chilkat of Cervantes with no MRA evidence of hemodynamically significant stenosis with generally ectatic arteries of the chilkat of Cervantes, MRA of the neck without evidence for vascular occlusion although technically limited secondary to motion, echo with normal LV systolic function, EF 65%, mildly enlarged LA, mild MV insufficiency, mild TV insufficiency, trivial PV insufficiency, RVSP 41 mmHg. Neurology consulted given these findings. PT, OT with likely acute rehabilitation recommendation. Will plan to start her lisinopril in AM (24 hours out) with goal then <160/90 given timeline. FLP in AM. Mag normal. TSH mildly elevated with normal FT4, subclinical with repeat outpatient. 04/03/17 1627 <Electronically signed by Barbara Avelar > Date Barbara Avelar cc: Barbara Avelar; Alix Bonner DO * Signed Problem List (1) COPD (chronic obstructive pulmonary disease) Status: Chronic Qualifiers: COPD type: unspecified COPD Qualified Code(s): J44.9 - Chronic obstructive pulmonary disease, unspecified (2) HTN (hypertension) Status: Chronic Qualifiers: Hypertension type: essential hypertension Qualified Code(s): I10 - Essential (primary) hypertension (3) Tobacco use Status: Chronic (4) left sided paresthesias Status: Acute (5) Left leg weakness Status: Acute History of Present Illness Date of Admission: 04/03/17 Chief Complaint: LLE weakness, L sided paresthesias The patient is a 66 y/o F w/ PMHx: Chronic COPD, HTN, Anxiety, Tobacco use who presents to the [facility] ED on 04/03/17 w/ history of awakening from bed at 5 am, noted to feel dizzy, fell upon attempt to stand with following noted left leg weakness with paresthesias to the LLE and LUE. The dizziness improved, but she had ongoing weakness to the LLE and paresthesias to the L sided upper and lower extremity prompting ED presentation. NIH in the ED upon evaluation 2 for LLE weakness and paresthesias. Work-up in the ED included T 98.1, HR 60, BP 179/90, RR 21, 98% on RA, CT Head unremarkable. EKG SR rate 56. All ED labs pending upon admission request. Past Medical History Past Medical History (Chronic Problems): Chronic Problems COPD (chronic obstructive pulmonary disease) (Chronic) HTN (hypertension) (Chronic) Tobacco use (Chronic) Allergies No Known Allergies Allergy (Verified 04/03/17 05:56) Home Medications: Ambulatory Orders Medication Instructions Recorded Atenolol [Tenormin (beta shira)] 25 mg PO DAILY 04/03/17 Surgical History: - - Appendectomy, BLTL. 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 Tobacco Use: Cigarettes Alcohol: None Drugs: None - *Family History Maternal History Items: No pertinent history Paternal History Items: Cancer Review of Systems Constitutional: Denies: Chills, Fever, Weight Change HEENT: Denies: Head Aches, Sinus Congestion, Sinus Drainage Cardiovascular: Denies: Chest Pain, Palpitations Respiratory: Denies: Cough, Shortness of breath at rest, Sputum production Gastrointestinal: Denies: Abdominal Pain, Nausea, Vomiting Genitourinary: Denies: Dysuria Musculoskeletal: Denies: Joint Pain, Joint Tenderness Skin: Denies: Rash, Wounds Neurological: Reports: Focal weakness, Numbness, Tingling Psychiatric: Reports: Anxiety. Denies: Depression, Homicidal Ideations, Suicidal Ideations Hematologic/ Lymphatic: Denies: Easy Bruising, Easy Bleeding VTE Information - Inpt Only VTE Present on Admission: No VTE Mechan Device Prophylaxis: SCD's VTE Pharm Prophylaxis ordered?: Yes Patient Problems: Active and Suspected Problems left sided paresthesias (Acute) Left leg weakness (Acute) Subjective: Seated upright in the ED bed, NAD, notes she has improved since initial presentation with less paresthesias and increased LLE strength. Objective: Physical Examination: General: awake, alert, oriented x 3 and cooperative, seated upright in the ED bed in no apparent distress. Skin: normal color, turgor, no icterus, cyanosis. HEENT: AT/NC, EOMI, PERRLA, mildly dry MM, no carotid bruits or JVD noted. Lungs: CTA bilaterally, moderate effort, mild decrease BL bases, no rales, ronchi or wheezing. Heart: Regular rate and rhythm; no gallop, rub audible. Abdomen: soft, NTTP, ND, normal BS, no HSM. Extremities: no cyanosis, clubbing, or edema. Neurological: patient awake, alert, oriented x 3; cognitive function intact; pupils equally reactive to light and accomodation; cranial nerves II-XII grossly normal, moving all 4 extremities, LLE 4/5 strength, minimal drift, FTN and HTN L mildly impaired, L sided paresthesias present, face not included, equiv babinski BL. Psychiatric: affect appears normal, no acute evidence of depressive or anxiety feelings. - Physical Exam Vital Signs Temp Pulse Resp BP Pulse Ox 98.1 F 59 L 21 H 176/90 H 98 04/03/17 05:51 04/03/17 05:53 04/03/17 05:53 04/03/17 05:53 04/03/17 05:58 Oxygen Flow Rate 2 Oxygen Delivery Method Nasal Cannula Weight: 149 lb 11.102 oz Body Mass Index (BMI) 26.5 Finger Stick Blood Glucose 90 POC Glucose POC Glucose 90 Assessment/Plan Active and Suspected Problems left sided paresthesias (Acute) Left leg weakness (Acute) The patient is a 66 y/o F w/ PMHx: Chronic COPD, HTN, Anxiety, Tobacco use who presents to the [facility] ED on 04/03/17 w/ history of awakening from bed at 5 am, noted to feel dizzy, fell, noted left leg weakness with paresthesias to the LLE. (1) L sided weakness (LLE) and L sided Paresthesias concerning for TIA/CVA: In the ED work-up included CT Head which was unremarkable. All labs are pending upon ED call for evaluation of patient. Patient was administered no medication in the ED. Will admit to PCU, will obtain MRI Brain, MRA Head and Neck, ECHO, PT/OT/Speech/Nutrition evaluation per protocol. Will allow permissive HTN, maintain on asa, add statin w/ pending AM FLP, fall precautions. Requested ED to administered ASA dose prior to admission. (2) Hypertension: Permissive pending MRI Brain. (3) Tobacco Abuse: Encouraged cessation, inpatient consultation per RT, NR if desired. (4) Anxiety: Continue home celexa regimen, ativan PRN w/ MRI as noted history of claustrophobia. (5) Chronic COPD: ATC duonebs, PRN albuterol, HOB, IS parameters. (6) DVT Prophylaxis: SCDs, lovenox. Code Visit OBSV E AND M: [id number] Initial observation care L3 04/03/17 1210 <Electronically signed by Barbara Avelar > Date Barbara Avelar Cosigner Signature: Date (if applicable) CC: Barbara Avelar; Alix Bonner DO Signed ECHOCARDIOGRAM COMPLETE Observed: 04/03/2017 Status: F Source: [place] 2:41 PM [facility] REPOSITORY [facility] Cardiovascular Services [address] [place] [address] Echo Complete 04/03/17 1053 MR#: [id number] Acct: [id number] Name: DONAL JOHNSON Rep #: [id number] : 1950 66 From: Ludwig Villegas MD Attending Dr: Barbara Avelar Status: ADM MARGA Ordering Dr: Barbara Avelar L Date: 04/03/17 Location: [facility] Sex: F C Admitted: 04/03/17 Reason For Study: TIA/CVA Procedure This was a 2D Doppler, Color Flow transthoracic echocardiogram. The exam was of adequate technical quality. Exam performed portable in patient room. Left Ventricle Normal LV size. Left ventricular systolic function is normal. The estimated ejection fraction is 65 %. No regional wall motion abnormalities noted. Right Ventricle Normal RV size. Normal systolic function. Atria The left atrium is mildly enlarged. Normal right atrium. No doppler evidence for ASD. Bubble contrast study negative for right to left interatrial shunt. Mitral Valve There is no mitral annular calcification. Normal mitral valve. Mild (1+) mitral valve insufficiency. Tricuspid Valve Normal tricuspid valve. Mild tricuspid valve insufficiency. Right ventricular systolic pressure estimated to be 41 mmHg. Aortic Valve Trisinus/trileaflet aortic valve. Mild focal aortic valve thickening. Pulmonic Valve The pulmonic valve is not well visualized. Trivial pulmonic valve insufficiency. Great Vessels Normal sized aortic root. Calcified aortic root. Pericardium/Pleural No pericardial effusion. Medication Performed a rapid injection of agitated mix of 9 cc saline and 1cc air to assess for atrial septal defect. MMode/2D Measurements AND Calculations LVIDd: 4.5 cm IVSd: 1.2 cm Ao root diam: 2.8 cm LVIDs: 3.3 cm LVPWd: 1.1 cm LA dimension: 3.4 cm RVDd: 3.8 cm FS: 27.7 % LAV(MOD-bp): 70.3 ml LA A4 area: 20.6 cm2 RA A4 area: 18.2 cm2 LAV(MOD-bp) Indexed: 41.2 ml/m2 LAV(MOD-sp2): 72.0 ml LAV(MOD-sp4): 65.0 ml Doppler Measurements AND Calculations MV E max loree: 71.4 cm/sec Lat Peak E' Loree: 6.2 cm/sec Med Peak E' Loree: 5.9 cm/sec MV A max loree: 92.2 cm/sec E/E' lat: 11.5 E/E' med: 12.1 MV E/A: 0.77 Ao V2 max: 127.2 cm/sec LV V1 max: 103.2 cm/sec PA V2 max: 91.8 cm/sec Ao max P.5 mmHg LV V1 max P.3 mmHg TR max loree: 305.4 cm/sec TR max P.6 mmHg Interpretation Summary Left ventricular systolic function is normal. The estimated ejection fraction is 65 %. The left atrium is mildly enlarged. Mild (1+) mitral valve insufficiency. Mild tricuspid valve insufficiency. Mild focal aortic valve thickening. Trivial pulmonic valve insufficiency. Calcified aortic root. Right ventricular systolic pressure estimated to be 41 mmHg. Ordering Physician: Barbara Avelar Referring Physician: Alix Bonner Performed By: Roxane Newton RDCS, RVT 04/03/17 1440 Date Ludwig Villegas MD CC: Barbara Bonner DO Date Dictated: 04/03/17 1053 Date Transcribed: 04/03/17 1440 Service Station Helper: Signed MRA NECK WITHOUT Observed: 04/03/2017 Status: F Source: LEWIS CONTRAST 8:20 AM [facility] REPOSITORY [facility] Imaging Services [address] [place] [address] MRA Neck without Contrast MR#: [id number] Acct: [id number] Name: DONAL JOHNSON Rep #: [id number] : 1950 F 66 From: Veronica Rios MD PCP: Alix Bonner DO Status: ADM MARGA Study: MRA Neck without Contrast Date of Exam: 04/03/17 Exam# [id number] Ordering Dr: Barbara Avelar STUDY: MRA NECK WITHOUT CONTRAST REASON FOR EXAM: Female, 66 years old. Weakness and dizziness. TECHNIQUE: Source images were obtained, MIPs were performed. The study was performed unenhanced. Most of the images are limited by patient motion. COMPARISON: None. FINDINGS: RIGHT CAROTID ARTERIES: Normal right common carotid artery (CCA). There is mild atherosclerotic plaque formation with minimal narrowing of the right carotid bulb. There is mild atherosclerotic plaque formation of the origin of the right internal carotid artery with less than 50% cross sectional diameter stenosis. Normal visualized cervical portion of the right internal carotid artery. Normal origin of the right external carotid artery (ECA). LEFT CAROTID ARTERIES: Normal left common carotid artery (CCA). There is mild atherosclerotic plaque formation with minimal narrowing of the left carotid bulb. There is mild atherosclerotic plaque formation of the origin of the left internal carotid artery with less than 50% cross sectional diameter stenosis. There is atherosclerotic tortuous elongation of the cervical portion of the left internal carotid artery. Normal origin of the left external carotid artery (ECA). VERTEBRAL ARTERIES: Normal antegrade flow within the bilateral vertebral artery without a hemodynamically significant stenosis. MRI/MRA Neck without Contrast IMPRESSION: Technically limited MRA due to patient motion without evidence for vascular occlusion. Electronically Signed: Veronica Rios MD at 15:09 EST , Service support , CC: Barbara Avelar; Alix Bonner DO Service Station Helper: Signed MRA HEAD ONLY WITHOUT Observed: 04/03/2017 Status: F Source: LEWIS CONTRAST 8:20 AM [facility] REPOSITORY [facility] [place] [address] MRA Head ONLY without Contrast MR#: [id number] Acct: [id number] Name: DONAL JOHNSON Rep #: [id number] : 1950 F 66 From: Veronica Rios MD PCP: Alix Bonner DO Status: ADM MARGA Study: MRA Head ONLY without Contrast Date of Exam: 04/03/17 Exam# [id number] Ordering Dr: Barbara Avelar STUDY: MRA OF THE HEAD WITHOUT CONTRAST REASON FOR EXAM: Female, 66 years old. Left-sided weakness and numbness. TECHNIQUE: 3-D [id number] (TOF) imaging was performed with MIPs. The study was performed unenhanced. COMPARISON: MRI the brain dated April 03, 2017. FINDINGS: Normal bilateral petrous carotid arteries. There is ectatic elongation and tortuosity of the right cavernous carotid artery, without a demonstrated hemodynamically significant stenosis. There is ectatic elongation and tortuosity of the left cavernous carotid artery, without a demonstrated hemodynamically significant stenosis. Normal right A1 segments of the anterior cerebral artery. Normal left A1 segments of the anterior cerebral artery. Normal intact anterior communicating artery (ACOM). Normal bilateral A2 segments of the anterior cerebral arteries. There is irregularity of the right M1 and M2 branches with minimal luminal narrowing, suggesting atherosclerotic plaque formation, without an occlusion. There is irregularity of the left M1 and M2 branches with minimal luminal narrowing, suggesting atherosclerotic plaque formation, without an occlusion. There is non-visualization of the right posterior communicating artery (PCOM). There is non-visualization of the left posterior communicating artery (PCOM). Normal bilateral vertebral arteries. There is tortuosity with elongation of the basilar artery. The visualized bilateral superior cerebellar (SCA) arteries are normal. Normal bilateral P1, P2 and visualized P3 segments of the posterior cerebral arteries. There is no demonstrated aneurysm of the chilkat of Cervantes. There is no major vessel occlusion or hemodynamically significant stenosis. There are mild involutional changes of the brain. MRI/MRA Head ONLY without Contrast IMPRESSION: 1. Incomplete chilkat of Cervantes. 2. No MRA evidence for hemodynamically significant stenosis with generally ectatic arteries of the chilkat of Cervantes. Electronically Signed: Veronica Rios MD at 15:15 EST , Service support , CC: Barbara Avelar; Alix Bonner DO Service Station Helper: Signed BRAIN WITHOUT Observed: 04/03/2017 Status: F Source: LEWIS CONTRAST 8:20 AM [facility] Imaging Services [address] [place] [address] Brain without Contrast MR#: [id number] Acct: [id number] Name: DONAL JOHNSON Rep #: [id number] : 1950 F 66 From: Veronica Rios MD PCP: Alix Bonner DO Status: ADM MARGA Study: Brain without Contrast Date of Exam: 04/03/17 Exam# [id number] Ordering Dr: Barbara Avelar STUDY: MRI BRAIN WITHOUT CONTRAST REASON FOR EXAM: Female, 66 years old. Left-sided weakness and numbness. TECHNIQUE: Standardized multiplanar fat and water weighted pulse sequences were obtained. COMPARISON: CT of the head dated April 03, 2017. FINDINGS: There is mild cerebral atrophy with widening of the extra- axial spaces and ventricular dilatation. There are multiple white matter hyperintensities, distributed throughout the deep white matter tracts of the cerebral hemispheres, consistent with moderate chronic white matter ischemic changes. Appears to be a small focus of restricted diffusion within the right thalamus as well as the posterior limb of the right internal capsule. This has the appearance of an acute infarct. Normal T2* images of the brain without demonstrated susceptibility artifact. There is no demonstrated hemosiderin stain. There are prominent perivascular spaces (PVS) involving the basal ganglia. Normal thalami. There is no extra-axial fluid accumulation. Normal flow voids within the major intracranial circulation suggesting patency by spin echo criteria. There is ectatic tortuosity of the cavernous carotid arteries. There is tortuosity of the vertebrobasilar arteries. Normal sella turcica, pituitary gland, infundibular stalk, optic chiasm and hypothalamus. Normal tectal plate and pineal gland. There are chronic white matter ischemic changes of the cosme. The midbrain and medulla are otherwise normal. Normal cerebellum. There are large basal cisterns. Normal bilateral temporal bones. Normal bilateral internal auditory canals. There are bilateral ocular lens implants with otherwise normal intraorbital contents. There is mucoperiosteal inflammatory disease of the paranasal sinuses consistent with mild chronic sinusitis. There is moderate deviation of nasal septum towards the right. Normal calvarium and skull base. Normal visualized soft tissue structures. Normal visualized upper cervical spine. MRI/Brain without Contrast IMPRESSION: 1. Involutional changes of the brain, as described above. 2. Acute infarct involving the right thalamus and posterior limb of the right internal capsule. Electronically Signed: Veronica Rios MD at 15:31 EST , Service support , CC: Barbara Avelar; Alix Bonner DO Service Station Helper: Signed PROTHROMBIN TIME W/INR Collected: 04/03/2017 Status: F Source: [place] 7:05 AM [facility] REPOSITORY TYPE CODE TESTS RESULT OUT OF RANGE REFERENCE UNITS LAB L300.4150 11.7-14.9 SECONDS Normal PROTIME 12.2 LAB L300.4200 Normal INR 0.9 Performed By: #### L300.3900, L300.4310 #### [facility] [address] [place], [place], [address] PARTIAL THROMBOPLAST Collected: 04/03/2017 Status: F Source: [place] TIME 7:05 AM [facility] REPOSITORY TYPE CODE TESTS RESULT OUT OF RANGE REFERENCE UNITS LAB L300.4310 24.1-36.2 Seconds Normal PTT 32.5 Performed By: #### L300.3900, L300.4310 #### [facility] [address] [place], [place], [address] BASIC METABOLIC Collected: 04/03/2017 Status: F Source: [place] PROFILE (BMP) 7:05 AM [facility] REPOSITORY Order Comment: 'TROP' Serial specimen #1, #2, #3, or #4: 1 TYPE CODE TESTS RESULT OUT OF RANGE REFERENCE UNITS LAB L501.0100 70-110 mg/dL Normal GLU 92 LAB L501.1000 7-18 mg/dL Normal BUN 16 LAB L501.1100 0.55-1.02 mg/dL Normal 0.89 CREAT,SERUM Result Comment: The validity of the calculated GFR AND GFRAA in patients over 70 years has not been determined. Clinical correlation is essential. LAB L501.1110 >60 mL/min Normal EST GFR 67 Result Comment: Non- GFR Calc LAB L501.1115 >60 mL/min Normal EST GFR - AA 82 Result Comment: GFR Calc LAB L501.1255 ml/min Normal Estimated CRCL 52.83 LAB L501.1300 10-20 RATIO Normal BUN/CRE 17.9 LAB L501.2200 8.5-10 mg/dL Low .1 CA 8.4 LAB L501.5300 136-14 mmol/L Low 5 NA 133 LAB L501.5600 3.5-5. mmol/L Normal 1 K 4.4 Result Comment: Moderate Hemolysis, Result may be falsely increased. LAB L501.5900 98-107 mmol/L Normal CL 102 LAB L501.6100 21.0-32.0 mmol/L Normal CO2 26.0 LAB L501.6200 5-15 Normal 5 GAP Performed By: #### L500.2500, L501.4010 #### [facility] [address] [place], [address] TROPONIN-I Collected: 04/03/2017 Status: F Source: [place] 7:05 [facility] Order Comment: 'TROP' Serial specimen #1, #2, #3, or #4: 1 TYPE CODE TESTS RESULT OUT OF RANGE REFERENCE UNITS LAB L501.4010 <0.06 ng/mL Normal < 0.02 TROPONIN-I Result Comment: TROPONIN-I EXPECTED VALUES <0.05 NEGATIVE 0.06 - 0.[address] > OR = 0.[address] Performed By: #### L500.2500, L501.4010 #### [facility] [address] [place], [place], [address] CBC W/DIFF, AUTOMATED Collected: 04/03/2017 Status: F Source: [place] 7:05 [facility] TYPE CODE TESTS RESULT OUT OF RANGE REFERENCE UNITS LAB L100.1000 4.4-11.0 K/mm3 Normal WBC 8.0 LAB L100.1200 4.2-5.4 M/mm3 Low RBC 3.99 LAB L100.1300 12.0-15.0 g/dl Normal HGB 12.0 LAB L100.1400 37-47 % Low HCT 36.4 LAB L100.1500 81-99 fL Normal MCV 91.2 LAB L100.1600 27.0-32.0 pg Normal MCH 30.1 LAB L100.1700 32-36 g/gl Normal MCHC 33.0 LAB L100.1810 11.6-14.6 % Normal RDW CV 14.1 LAB L100.1820 35.1-43.9 fl High RDW SD 46.2 LAB L100.1900 150-450 K/mm3 Normal PLT 239 LAB L100.2000 6.2-12.0 fl Normal MPV 9.4 LAB L100.2100 47-70 % High NEUT% 82.9 LAB L100.2200 19-41 % Low LY% 7.6 LAB L100.2300 0-10 % Normal MONO% 6.9 LAB L100.2400 0-5 % Normal EO% 2.1 LAB L100.2500 0-1 % Normal BASO% 0.4 LAB L100.2550 0.0-0.9 % Normal IM GRAN % 0.100 Result Comment: IG% - Immature Granulocytes (promyelocytes, myelocytes and metamyelocytes) > 1% indicates that a LEFT SHIFT is Present. LAB L100.2620 2.0-7.7 X10 3/uL Normal Absolute Neut 6.6 LAB L100.2720 0.83-4.51 X10 3/ul Low Absolute Lymph 0.61 Performed By: #### L100.0100 #### [facility] [address] [place], [address] MAGNESIUM Collected: 04/03/2017 Status: F Source: [place] 7:05 AM [facility] REPOSIT[facility] TYPE CODE TESTS RESULT OUT OF RANGE REFERENCE UNITS LAB L501.5200 1.6-2.6 mg/dL Normal MG 2.1 Result Comment: Please note revised Magnesium reference range effective 2017. Slight Hemolysis, Result may be falsely increased. Performed By: #### L501.5200, L501.9520 #### [facility] [address] [place], [place], [address] THYROID STIM HORMONE Collected: 04/03/2017 Status: F Source: [place] (TSH) 7:05 [facility] TYPE CODE TESTS RESULT OUT OF RANGE REFERENCE UNITS LAB L501.9520 0.358-3.74 uIU/mL High TSH 3.84 Performed By: #### L501.5200, L501.9520 #### [facility] [address] [place], [address] T4 FREE DIRECT Collected: 04/03/2017 Status: F Source: [place] 7:05 AM [facility] REPOSIT[facility] TYPE CODE TESTS RESULT OUT OF RANGE REFERENCE UNITS LAB L506.0400 0.76-1.46 ng/dL Normal T4 FREE 1.00 DIRECT Performed By: #### L506.0400 #### [facility] [address] [place], [address] BEDSIDE GLUCOSE Collected: 04/03/2017 Status: F Source: [place] 6:26 AM [facility] REPOSIT[facility] TYPE CODE TESTS RESULT OUT OF RANGE REFERENCE UNITS LAB L501.080 70-110 mg/dL Normal BEDSIDE GLU 90 Result Comment: MANAGEMENT OF PATIENT CARE PER NURSING PROTOCOL Performed By: #### L501.080 #### [facility] Point of Care [address] [place] [address] BRAIN/HEAD WITHOUT Observed: 04/03/2017 Status: F Source: [place] CONTRAST 5:54 AM [facility] REPOSITORY [facility] Imaging Services [address] [place] [address] Brain/Head without Contrast MR#: [id number] Acct: [id number] Name: DONAL JOHNSON Rep #: [id number] : 1950 F 66 From: Katie Greer MD PCP: Alix Bonner DO Status: REG ER Study: Brain/Head without Contrast Date of Exam: 04/03/17 Exam# [id number] Ordering Dr: Ricky Mancilla MD STUDY: CT BRAIN WITHOUT CONTRAST REASON FOR EXAM: Female, 66 years old. Left leg heaviness, numbness, then fell. Dizziness. History of hypertension, controlled RADIATION DOSAGE (If Supplied By Facility): CTDIvol = ( 44.99 ) mGy, DLP = ( 745.49 ) mGycm TECHNIQUE: Transaxial CT imaging of the brain was performed without administration of intravenous contrast material. Individualized dose optimization techniques were used for this CT. COMPARISON: None. FINDINGS: Normal soft tissue structures. Normal calvarium. Normal size ventricles and extra-axial spaces for the patient's age. There are areas of decreased attenuation within the white matter tracts of the supratentorial brain, consistent with microvascular disease changes. Remote right caudate infarct. Normal basal ganglia and thalami. Normal brainstem. Normal cerebellum. There is no intracranial hemorrhage. There are no findings of an acute ischemic infarction. Normal visualized paranasal sinuses. The bilateral mastoid air cells are clear. Total of 3 spot image is obtained with C-arm in the OR demonstrating open reduction and internal fixation (ORIF) of the femoral neck fracture with placement of metallic hardware. CT/Brain/Head without Contrast IMPRESSION: Chronic involutional changes of the brain. There is no acute intracranial pathology. Electronically Signed: Katie Greer MD at 6:34 EST , Service support , CC: Ricky Mancilla MD; Alix Bonner DO Service Station Helper: Signed ALLERGIES ALLERGIES DATE TYPE / CODE NAME / CODE REACTION SEVERITY SOURCE 03/21/2018 Drug No Known Unknown [facility] Allergy/4160 Allergies/F00 Hospital 31850(SNOMED 2570109(RXNOR Repository CT) M) ENCOUNTERS ENCOUNTERS ADMIT/DISCHARGE ACCOUNT NUMBER ADMITTING ENCOUNTER LOCATION SOURCE CLASS 03/21/2018/03/21/19 [id number] Ambulatory BMSBuilding: [place] 19 [facility] Repository 02/18/2018 [id number] Ambulatory [facility] ding:LAB.FUT Repository URE 02/11/2018 [id number] Ambulatory [facility] ding:BFHLAB Repository 02/04/2018 [id number] Ambulatory [facility] Repository 10/10/2017 [id number] [facility] Rep[facility] ng:H.OT 10/10/2017 [id number] [facility] ng:H.OT 08/30/2017 [id number] Ambulatory BMSBuilding: [place] [facility] Repository 08/27/2017/08/28/19 [id number] Ambulatory [address] ding:CLSP Repository 08/27/2017 [id number] Ambulatory BMSBuilding: [place] Repository 08/21/2017/08/22/19 [id number] Ambulatory [address] ding:PT Repository 08/17/2017 [id number] Ambulatory [facility] ding:LAB Repository 08/17/2017/08/18/19 [id number] Ambulatory BMSBuilding: Karla 18 BMS[facility] Repository 08/16/2017/08/17/19 [id number] Ambulatory BMSBuilding: [place] 18 [facility] Repository 08/15/2017 [id number] Ambulatory BMS [facility] Repository 06/13/2017 [id number] Ambulatory [facility] ding:CVS Repository 06/13/2017 [id number] Ambulatory BMSBuilding: Karla [facility] Repository 05/16/2017/05/17/19 [id number] Ambulatory BMSBuilding: [place]la 18 BMS[facility] Repository 05/14/2017 [id number] Ambulatory BMSBuilding: Karla BMS[facility] Repository 05/03/2017 [id number] Ambulatory [facility] ding:LAB Repository 04/19/2017 [id number] Ambulatory [facility] ding:CVS Repository 04/19/2017 [id number] Ambulatory BMSBuilding: Karla [facility] Repository 04/05/2017/04/19/19 [id number] [facility] ding:RURoom: Repository YF317Hvx: 1 04/05/2017 [id number] Olvin Ambulatory BMSBuilding: [place] David BMS.[facility] Repository 04/05/2017 [id number] Olvin Ambulatory BMSBuilding: [place]la David BMS.[facility] Repository 04/05/2017 [id number] Olvin Ambulatory BMSBuilding: [place] David BMS.[facility] Repository 04/05/2017 [id number] Olvin Ambulatory BMSBuilding: Karla David BMS.[facility] Repository 04/05/2017 [id number] Olvin Ambulatory BMSBuilding: [place] David BMS.[facility] Repository 04/05/2017 [id number] Olvin Ambulatory BMSBuilding: Karla David BMS.[facility] Repository 04/03/2017/04/05/19 [id number] White, Inpatient [place] Karla 18 Barbara Encounter [facility] ding:PCURoom Repository : [id number]: 1 04/03/2017 [id number] White, Ambulatory BMSBuilding: [place] Barbara BMS.[facility] Repository 04/03/2017 [id number] White, Ambulatory BMSBuilding: [place] Barbara BMS.[facility] Repository 04/03/2017/04/05/19 [id number] Ambulatory BMSBuilding: [place] 18 [facility] Repository 04/03/2017 [id number] White, Ambulatory BMSBuilding: Karla Barbara BMS.[facility] Repository PAYERS PAYERS ENCOUNTER GUARANTOR PAYER SUBSCRIBER SOURCE 03/21/2018 CASSANDRA CALIX2 Primary DONAL R Karla [facility] [address] Insurance:JUAN CARLOS JOHNSONDOB: [address] Number: [id number] [facility] Medical [facility] [address]Cww: [id number] Repository Date:4602-08-60QB [address]OX (CR) [place], [place] [address]GG: 03/21/2018 Secondary NOT GIVENUNK [place] Insurance:SELF PAY [facility] Number: Effective Repository Date:2018-03-20 02/18/2018 CASSANDRA JOHNSON412 Primary DONAL R [place] TR Insurance:VIKI JOHNSONDOB: [place] [address], MEDICARE PPOPolicy [id number] County Medical Center [address]Uug: Number: Repository [id number] (HP) Date:1074-48-26LD [address], [place] [address]UN: 02/18/2018 Secondary NOT GIVENUNK [place] Insurance:SELF PAY [facility] Number: Effective Repository Date:2018-02-11 02/11/2018 CASSANDRA JOHNSON412 Primary DONAL R Karla TR Insurance:VIKI HOLLOWAYENGDOB: Community [address], MEDICARE PPOPolicy [id number] County Medical Center [address]Kyl: Number: Repository [id number] (HP) Date:5165-98-34BU [address] [place] [address] [place] [address]LW: 02/11/2018 Secondary NOT GIVENUNK [place] Insurance:SELF PAY [facility] Number: Effective Repository Date:2018-02-11 02/04/2018 Donal R Primary Donal [facility]ermudez [facility]:Mauldin ZestFinance [facility] System Tr Cross Blue [id number] Repository [address] [place] [address] Number: [place] [id number]: Effective Date: (HP) 10/10/2017 DONAL R Primary DONAL R [facility] Insurance:SELF PAY BY [address] Number: Repository [place] [address]Vyi: [id number] Date:USE PATIENTS (HP) NAME & ADDRESS*[place] [address]YO: 10/10/2017 DONAL R Primary DONAL R [facility] Insurance:[address], MEDICARE ALL ADV Repository [place] [address]Nsl: [facility] Number: [id number] (HP) Date:7704-20-88DM [address] [place] [address] [place] [address]WT: 08/30/2017 CASSANDRA Spears [id number] Primary DONAL R Karla TR Insurance:[facility]: [address], MEDICARE PPOPolicy [id number] [place] [address]Vcn: Number: Repository [id number] (HP) Date:5573-34-43KU [address], [place] [address]KP: 08/30/2017 Secondary NOT GIVENUNK [place] Insurance:SELF PAY [facility] Number: Effective Repository Date:2017-08-30 08/27/2017 CASSANDRA JOHNSON412 Primary DONAL R [place] TR Insurance:ANTHEM AMIEENGDOB: [address], MEDICARE PPOPolicy [id number] [place] [address]Ajl: Number: Repository [id number] (HP) Date:8605-64-12ET [address] [place] [address]IX: 08/27/2017 Secondary NOT GIVENUNK Karla Insurance:SELF PAY [facility] Number: Effective Repository Date:2017-08-16 08/27/2017 CASSANDRA JOHNSON412 Primary DONAL R [place] TR Insurance:ANTHEM SPRENGDOB: [address], MEDICARE PPOPolicy [id number] [place] [address]Udn: Number: Repository [id number] (HP) Date:6338-43-69FJ [address] [place] [address]TX: 08/27/2017 Secondary NOT GIVENUNK [place] Insurance:SELF PAY [facility] Number: Effective Repository Date:2017-08-27 08/21/2017 Cassandra Johnson412 Primary DONAL R [place] TR Insurance:ANTHEM AMIEENGDOB: [address], MEDICARE PPOPolicy [id number] Hospital [place] [address]Zra: Number: Repository [id number] (HP) Date:2970-25-11VY [address] [place] [address]PB: 08/21/2017 Secondary NOT GIVENUNK Karla Insurance:SELF PAY [facility] Number: Effective Repository Date:2017-04-20 08/17/2017 Cassandra Johnson412 Primary DONAL R Karla TR Insurance:ANTHEM SPRENGDOB: [address], MEDICARE PPOPolicy [id number] [place] [address]Tlx: Number: Repository [id number] (HP) Date:4063-27-87AS [address]GXJWXLADOMINIQUE LEON [address]ST: 08/17/2017 Secondary NOT GIVENUNK Karla Insurance:SELF PAY [facility] Number: Effective Repository Date:2017-08-17 08/17/2017 Cassandra Calix2 Primary DONAL R Karla TR Insurance:ANTHEM SPRENGDOB: Community [address], MEDICARE PPOPolicy [id number] County Medical Center [address]Pzx: Number: Repository [id number] (HP) Date:4985-94-56ZT [address], [place] [address]BI: 08/17/2017 Secondary NOT GIVENUNK [place] Insurance:SELF PAY [facility] Number: Effective Repository Date:2017-08-17 08/16/2017 Cassandra Calix2 Primary DONAL R Karla TR Insurance:ANTHEM SPRENGDOB: Community [address], MEDICARE PPOPolicy [id number] [place] [address]Akc: Number: Repository [id number] (HP) Date:3946-21-55VA [address] DOMINIQUE MCGARRY [address]WL: 08/16/2017 Secondary NOT GIVENUNK [place] Insurance:SELF PAY [facility] Number: Effective Repository Date:2017-06-08 08/15/2017 Cassandra Calix2 Primary DONAL R [place] TR Insurance:ANTHEM SPRENGDOB: Community [address] [place] [address], MEDICARE PPOPolicy [id number] [place] [address]Ogf: Number: Repository [id number] (HP) Date:0914-42-06BG [address]BOPAUFFDOMINIQUE LEON [address]VT: 08/15/2017 Secondary NOT GIVENUNK [place] Insurance:SELF PAY [facility] Number: Effective Repository Date:2017-08-15 06/13/2017 Cassandra Moreland Primary DONAL R [place] TR Insurance:ANTHEM SPRENGDOB: Community [address] [place] [address], MEDICARE PPOPolicy [id number] [place] [address]Qhu: Number: Repository [id number] (HP) Date:5946-58-48OQ [address] [place] [address]OT: 06/13/2017 Secondary NOT GIVENUNK [place] Insurance:SELF PAY [facility] Number: Effective Repository Date:2017-05-23 06/13/2017 Cassandra Calix2 Primary DONAL R [place] TR Insurance:ANTHEM SPRENGDOB: [address], MEDICARE PPOPolicy [id number] County Medical Center [address]Spe: Number: Repository [id number] (HP) Date:4253-28-78TE [address], [place] [address]MQ: 06/13/2017 Secondary NOT GIVENUNK [place] Insurance:SELF PAY [facility] Number: Effective Repository Date:2017-06-13 05/16/2017 Cassandra Calix2 Primary DONAL R Karla TR Insurance:CARESOURCE SPRENGDOB: [address] [id number] [place] [address]Aww: Number: Repository [id number] (HP) Date:2145-84-88VC [address] [address]MC: 05/16/2017 Secondary NOT GIVENUNK Karla Insurance:SELF PAY [facility] Number: Effective Repository Date:2017-05-14 05/14/2017 Cassandra Calix2 Primary DONAL R [place] TR Insurance:CARESOURCE SPRENGDOB: [address] [id number] [place] [address]Bhy: Number: Repository [id number] (HP) Date:5485-52-72FF [address] [address]UC: 05/14/2017 Secondary NOT GIVENUNK [place] Insurance:SELF PAY [facility] Number: Effective Repository Date:2017-05-14 05/03/2017 Cassandra Johnson412 Primary DONAL R Karla TR Insurance:CARESOURCE SPRENGDOB: Community [address] [place] [address], JUST FOR [facility] [id number] [place] [address]Ezt: Number: Repository [id number] (HP) Date:9743-64-45HB [address] [address]DK: 05/03/2017 Secondary NOT GIVENUNK [place] Insurance:SELF PAY [facility] Number: Effective Repository Date:2017-05-03 04/19/2017 Cassandra Johnson412 Primary NOT GIVENUNK [place] TR Insurance:SELF PAY [address] [place] [address]Iyh: Number: Effective Repository Date:2017-04-19 (HP) 04/19/2017 Cassandra Calix2 Primary DONAL R Karla TR Insurance:CARESOURCE SPRENGDOB: Community [address] [place] [address], JUST FOR [facility] [id number] [place] [address]Uox: Number: Repository [id number] (HP) Date:2813-65-89WW [address] [address]OL: 04/19/2017 Secondary NOT GIVENUNK [place] Insurance:SELF PAY [facility] Number: Effective Repository Date:2017-04-19 04/05/2017 Cassandra Johnson412 Primary DONAL R [place] TR Insurance:CARESOURCE SPRENGDOB: Community [address] [place] [address] [id number] [place] [address]Ogl: Number: Repository [id number] (HP) Date:3775-58-81MO [address] [address]ZS: 04/05/2017 Secondary NOT GIVENUNK Karla Insurance:SELF PAY [facility] Number: Effective Repository Date:2017-04-05 04/05/2017 Cassandra Johnson412 Primary DONAL R Karla TR Insurance:CARESOURCE SPRENGDOB: Community [address] [place] [address], JUST FOR [facility] [id number] [place] [address]Fpw: Number: Repository [id number] (HP) Date:5042-62-31KL [address] [address]UO: 04/05/2017 Secondary NOT GIVENUNK Karla Insurance:SELF PAY [facility] Number: Effective Repository Date:2017-04-05 04/05/2017 Cassandra Johnson412 Primary DONAL R [place] TR Insurance:CARESOURCE SPRENGDOB: Community [address] [place] [address], JUST FOR [facility] [id number] [place] [address]Xxr: Number: Repository [id number] (HP) Date:2533-57-07KM [address] [address]CY: 04/05/2017 Secondary NOT GIVENUNK [place] Insurance:SELF PAY [facility] Number: Effective Repository Date:2017-04-05 04/05/2017 Cassandra Johnson412 Primary DONAL R [place] TR Insurance:CARESOURCE SPRENGDOB: Community [address] [place] [address], JUST FOR [facility] [id number] [place] [address]Zgc: Number: Repository [id number] (HP) Date:6208-80-20LM [address] [address]CD: 04/05/2017 Secondary NOT GIVENUNK [place] Insurance:SELF PAY [facility] Number: Effective Repository Date:2017-04-05 04/05/2017 Cassandra Johnson412 Primary DONAL R [place] TR Insurance:CARESOURCE SPRENGDOB: Community [address] [place] [address], JUST FOR [facility] [id number] County Medical Center [address]Xzh: Number: Repository [id number] (HP) Date:8145-07-89WM [address] [address]VA: 04/05/2017 Secondary NOT GIVENUNK Karla Insurance:SELF PAY [facility] Number: Effective Repository Date:2017-04-05 04/05/2017 Cassandra Johnson412 Primary DONAL R Karla TR Insurance:CARESOURCE SPRENGDOB: Community [address], JUST FOR [facility] [id number] [place] [address]Fuz: Number: Repository [id number] (HP) Date:3894-87-53SQ [address] [address]AZ: 04/05/2017 Secondary NOT GIVENUNK Karla Insurance:SELF PAY [facility] Number: Effective Repository Date:2017-04-05 04/05/2017 Cassandra Johnson412 Primary DONAL R Karla TR Insurance:CARESOURCE SPRENGDOB: [facility], JUST FOR [facility] [id number] [place] [address]Gov: Number: Repository [id number] (HP) Date:0055-94-29AH [address] [address]JO: 04/05/2017 Secondary NOT GIVENUNK Karla Insurance:SELF PAY [facility] Number: Effective Repository Date:2017-04-05 04/03/2017 Cassandra Johnson412 Primary DONAL R Karla TR Insurance:CARESOURCE SPRENGDOB: Community [address] [place] [address], JUST FOR [facility] [id number] [place] [address]Hgh: Number: Repository [id number] (HP) Date:3058-87-77SZ [address] [address]VY: 04/03/2017 Secondary NOT GIVENUNK Karla Insurance:SELF PAY [facility] Number: Effective Repository Date:2017-04-03 04/03/2017 Cassandra Johnson412 Primary DONAL R Karla TR Insurance:CARESOURCE SPRENGDOB: Community [address] [place] [address], JUST FOR [facility] [id number] [place] [address]Pzc: Number: Repository [id number] (HP) Date:4407-51-73JL [address] [address]XN: 04/03/2017 Secondary NOT GIVENUNK [place] Insurance:SELF PAY [facility] Number: Effective Repository Date:2017-04-03 04/03/2017 Cassandra Hollowayeng412 Primary DONAL Acosta Insurance:CARESOURCE SPRENGDOB: [address], [facility] FOR [facility] [id number] [place] [address]Djx: Number: Repository [id number] (HP) Date:0743-41-84GR [address] [address]NG: 04/03/2017 Secondary NOT GIVENUNK Karla Insurance:SELF PAY [facility] Number: Effective Repository Date:2017-04-03 04/03/2017 Cassandra Johnson412 Primary DONAL Acosta TR Insurance:CARESOURCE SPRENGDOB: [address], [facility] FOR [facility] [id number] [place] [address]Xgh: Number: Repository [id number] (HP) Date:4746-22-87LX [address] [address]BS: 04/03/2017 Secondary NOT GIVENUNK [place] Insurance:SELF PAY [facility] Number: Effective Repository Date:2017-04-03 04/03/2017 Cassandra Johnson412 Primary DONAL Acosta [facility] Insurance:CARESOURCE SPRENGDOB: Community [address] [place] [address], [facility] FOR [place] [id number] [place] [address]Jrk: Number: Repository [id number] (HP) Date:1453-41-65OT [address] [place] [address]PF: 04/03/2017 Secondary NOT GIVENUNK Karla Insurance:SELF PAY [facility] Number: Effective Repository Date:2017-04-03
== END ==
PROVIDERS: PCP Family Medicine; Visit Provider Family Medicine
DX: I10 Essential (primary) hypertension (principal)
CPT/HCPCS: 36415; 80048

== ENCOUNTER 2018-07-02 12:20 | Outpatient (RCR) | payer MEDICARE, SELFPAY ==
[2018-03-21 11:36] VITALS: BMI 21.9
[2018-07-02 13:57] LABS: Absolute Lymphocyte Count 0.46 X10^3/ul (0.83-4.51); Absolute Neutrophil Count 2.6 X10^3/uL (2.0-7.7); Basophil# 0.01 X10^3/uL; Basophil% 0.3 % (0-1); Eosinophil# 0.13 X10^3/uL; Eosinophils% 3.8 % (0-5); Hematocrit 30.7 % (37-47); Lymphocyte # 0.46 X10^3/ul (4.0); Lymphocyte % 13.5 % (19-41); Mean Corp Hgb Conc 32.6 g/gl (32-36); Mean Corpuscular Hgb 27.9 pg (27.0-32.0); Mean Corpuscular Volume 85.5 fL (81-99); Mean Platelet Vol. 9.4 fl (6.2-12.0); Monocyte# 0.23 X10^3/uL; Monocyte% 6.8 % (0-10); Neutrophil # 2.56 X10^3/uL (2.7-7.7); Neutrophil % 75.3 % (47-70); Platelet Count 330 K/mm3 (150-450); RBC Distribution Width CV 15.6 % (11.6-14.6); RBC Distribution Width SD 46.6 fl (35.1-43.9); Red Blood Count 3.59 M/mm3 (4.2-5.4); White Blood Count 3.4 K/mm3 (4.4-11.0)
[2018-07-02 14:02] LABS: Differential Indicated SCAN CRITERIA MET; POSITIVE COUNT NO; POSITIVE DIFFERENTIAL YES; POSITIVE MORPHOLOGY NO
[2018-07-02 14:09] LABS: Acanthocytes 1+; Hypochromasia 1+; Platelet Estimate ADEQUATE (ADEQ)
[2018-07-02 14:10] LABS: Ovalocyte 1+
[2018-07-02 14:22] LABS: AST(SGOT) 20 U/L (15-37); Alanine Aminotransfer ALT/SGPT 19 U/L (13-56); Albumin, Serum 3.1 g/dL (3.2-5.0); Alkaline Phosphatase 71 U/L (45-117); Bilirubin, Direct 0.11 mg/dL (0.00-0.30); Globulin 3.1 g/dL (2.2-4.2); Iron 80 ug/dL (50-170); Protein, Total 6.2 g/dL (6.4-8.2)
== END 2018-07-02 16:00 | disposition home or self-care (01) ==
LOC: MTLAB 12:20
PROVIDERS: Family Provider Family Medicine; PCP Family Medicine; Referring Provider Internal Medicine Gastroenterology; Visit Provider Internal Medicine Gastroenterology
DX: K52.9 Noninfective gastroenteritis and colitis, unspecified (principal); D50.9 Iron deficiency anemia, unspecified; Z79.899 Other long term (current) drug therapy
CPT/HCPCS: 36415; 80076; 83540; 85025

== ENCOUNTER 2018-08-05 14:34 | Outpatient (RCR) | payer MEDICARE, SELFPAY ==
[2018-03-21 11:36] VITALS: BMI 21.9
[2018-08-05 16:08] LABS: AST(SGOT) 21 U/L (15-37); Alanine Aminotransfer ALT/SGPT 19 U/L (13-56); Albumin, Serum 3.3 g/dL (3.2-5.0); Alkaline Phosphatase 88 U/L (45-117); Bilirubin, Direct 0.12 mg/dL (0.00-0.30); Globulin 3.4 g/dL (2.2-4.2); Protein, Total 6.7 g/dL (6.4-8.2)
[2018-08-05 18:08] LABS: Absolute Lymphocyte Count 0.53 X10^3/ul (0.83-4.51); Absolute Neutrophil Count 2.2 X10^3/uL (2.0-7.7); Basophil# 0.01 X10^3/uL; Basophil% 0.3 % (0-1); Eosinophils% 3.2 % (0-5); Hemoglobin 9.9 g/dl (12.0-15.0); Lymphocyte # 0.53 X10^3/ul (4.0); Lymphocyte % 16.8 % (19-41); Mean Corp Hgb Conc 34.1 g/gl (32-36); Mean Corpuscular Hgb 30.6 pg (27.0-32.0); Mean Corpuscular Volume 89.5 fL (81-99); Mean Platelet Vol. 9.4 fl (6.2-12.0); Monocyte# 0.28 X10^3/uL; Monocyte% 8.9 % (0-10); Neutrophil # 2.22 X10^3/uL (2.7-7.7); Neutrophil % 70.5 % (47-70); Platelet Count 352 K/mm3 (150-450); RBC Distribution Width CV 20.9 % (11.6-14.6); RBC Distribution Width SD 65.8 fl (35.1-43.9); Red Blood Count 3.24 M/mm3 (4.2-5.4); White Blood Count 3.2 K/mm3 (4.4-11.0)
[2018-08-05 18:21] LABS: Differential Indicated SCAN CRITERIA MET; POSITIVE COUNT NO; POSITIVE DIFFERENTIAL YES; POSITIVE MORPHOLOGY YES
[2018-08-05 18:26] LABS: Anisocytosis 2+; Crenated RBC 2+; Platelet Estimate ADEQUATE (ADEQ)
[2018-08-05 18:27] LABS: Ovalocyte 1+; Schistocytes 1+
[2018-08-05 18:29] LABS: Bite Cell RARE
[2018-08-06 14:02] LABS: Pathologist Review Reviewed
== END 2018-09-01 12:00 | disposition home or self-care (01) ==
LOC: LAB 14:34
PROVIDERS: Family Provider Family Medicine; PCP Family Medicine; Referring Provider Internal Medicine Gastroenterology; Visit Provider Internal Medicine Gastroenterology
DX: K52.9 Noninfective gastroenteritis and colitis, unspecified (principal); Z79.899 Other long term (current) drug therapy
CPT/HCPCS: 36415; 80076; 85025

== ENCOUNTER 2018-08-21 09:22 | Inpatient (IN) | payer MEDICARE, SELFPAY ==
[2018-03-21 11:36] VITALS: BMI 21.9
[2018-08-21] VITALS (10 sets, daily range): BP systolic 108–156; BP diastolic 61–84; PULSE 69–75; RESP 16–18; TEMP 36.5–36.8; O2SAT 95–98; BMI 26.6; BMI 23.5
[2018-08-21] MEDS: Morphine 4 MG/ML Syringe IV ×2 (09:53→11:24)
[2018-08-21] MEDS: Ondansetron 4 MG/2 ML Vial IV (09:54)
--- NOTE | 2018-08-21 09:57 | ED.DCSUM_ITS ---
- ER Visit Summary Date of Service: 08/21/18 Chief Complaint: Fall with left hip pain History of Present Illness: The patient is a 68 F lost her balance and fell landing awkwardly on her left hip. Unable to bear weight and was unable to stand. Brought in by paramedics. Denies any other injuries. Did not hit her head. Denies any prior hip injury or surgery. Physical Examination: Older female vital signs are stable afebrile. HEENT exam atraumatic and nontender. Pupils round reactive light. No signs of trauma. C- spine nontender. Lungs coarse breath sounds but no acute rales, rhonchi or wheezing. Chest wall nontender. Heart is regular rhythm rate about 70 no murmur. Abdomen is soft and nontender. Normal bowel sounds no peritoneal signs. Patient moving both upper extremities are nontender. Her right lower extremity is nontender. He has pain on palpation to the left hip with decreased range of motion. She is holding it flexed. Her left lower leg near the lower leg, ankle and foot are nontender and neurovascularly intact. Neurologically she is awake and alert with no focal motor deficits. Test Results: Left hip x-ray and pelvis comminuted left intertrochanteric hip fracture Preop chest x-ray portable one view showed chronic changes no acute process. CBC showed a chronic simple anemia with hemoglobin 9.5 which is her baseline. Electrolytes showed a chronic hyponatremia with a sodium of 127 previously 129. Normal BUN, creatinine and gap. Normal PT/INR. Emergency Department Course and Treatment: Patient treated with IV morphine and Zofran. My concern is either for hip fracture or dislocated hip. I spoke with Kevin Suazo's physician events and promotions assistant. They will consult for the hip fracture. I have the hospitalist on page. Treatment Plan: Admit for surgery for the left hip fracture. Disposition: Admission Impression: Acute fall Acute left hip comminuted and intratrochanteric hip fracture Chronic simple anemia Chronic hyponatremia This note was generated with [employer] dictation software. It may contain incorrect words, spelling, and punctuation that were not noted in review of the chart prior to signing ED Disposition - Plan for ED Patient: Referrals: Alix Bonner DO [Primary Care Provider] -
--- NOTE | 2018-08-21 10:06 | RAD_ITS ---
STUDY: X-RAY - PELVIS AND LEFT HIP REASON FOR EXAM: Female, 68 years old. Pain following a fall. TECHNIQUE: 3 views of the pelvis and hip. COMPARISON: None. FINDINGS: There is a non-specific bowel gas pattern. Normal visualized soft tissue structures. Comminuted intertrochanteric fracture with cephalic displacement of the distal fracture fragment. RAD/HIP, UNI W/ Pelvis 2-3 Views IMPRESSION: Comminuted intertrochanteric fracture with cephalic displacement of the distal fracture fragment. Electronically Signed: Ryan Yun, at 10:34 EDT , Service support ,
--- NOTE | 2018-08-21 10:16 | EKG12_ITS ---
Test Reason : FALL Blood Pressure : / mmHG Vent. Rate : 073 BPM Atrial Rate : 073 BPM P-R Int : 178 ms QRS Dur : 074 ms QT Int : 404 ms P-R-T Axes : 078 070 144 degrees QTc Int : 445 ms Normal sinus rhythm ST & T wave abnormality, consider inferior ischemia ST & T wave abnormality, consider anterior ischemia Abnormal ECG Confirmed by ALEX RUVALCABA ([id number]), make up editor AN MARQUEZ ([id number]) on 08/26/2018 10:07:14 AM Referred By: Carla Sun Confirmed By:ALEX RUVALCABA
[2018-08-21 10:32] LABS: Hematocrit 27.1 % (37-47); Hemoglobin 9.5 g/dl (12.0-15.0); Mean Corp Hgb Conc 35.1 g/gl (32-36); Mean Corpuscular Hgb 31.8 pg (27.0-32.0); Mean Corpuscular Volume 90.6 fL (81-99); Platelet Count 359 K/mm3 (150-450); RBC Distribution Width CV 22.8 % (11.6-14.6); RBC Distribution Width SD 72.8 fl (35.1-43.9); Red Blood Count 2.99 M/mm3 (4.2-5.4); Scan Indicated on CBC? Y/N YES- FLAGS NOTED; White Blood Count 4.3 K/mm3 (4.4-11.0)
[2018-08-21 10:34] LABS: Anion Gap 7 (5-15); BUN 16 mg/dL (7-18); BUN/Creat Ratio 17.5 RATIO (10-20); Calcium,Total 8.6 mg/dL (8.5-10.1); Chloride 93 mmol/L (98-107); Creatinine, Serum 0.91 mg/dL (0.55-1.02); EST Glomerular Filtration Rate 66 mL/min (>60); Est Glom Filt Rate - Afr Amer 79 mL/min (>60); Glucose 107 mg/dL (74-106); Sodium Level 127 mmol/L (136-145)
[2018-08-21 10:35] LABS: International Normalized Ratio 0.9; Prothrombin Time (Protime)PT. 12.4 SECONDS (11.7-14.9)
--- NOTE | 2018-08-21 10:40 | RAD_ITS ---
STUDY: X-RAY - LEFT KNEE REASON FOR EXAM: Female, 68 years old. Pain. Known left hip fracture. TECHNIQUE: Single lateral view(s) of the knee. COMPARISON: None. FINDINGS: No abnormality is seen. RAD/Knee 1 or 2 Views IMPRESSION: No abnormality is seen. Electronically Signed: Ryan Yun, at 11:37 EDT , Service support ,
[2018-08-21 10:50] LABS: Differential Comment SCANNED
--- NOTE | 2018-08-21 10:55 | RAD_ITS ---
STUDY: X-RAY CHEST REASON FOR EXAM: Female, 68 years old. Preoperative evaluation. TECHNIQUE: Single AP portable view of the chest. COMPARISON: Comparison is made with prior examination dated March 07, 2016. FINDINGS: EKG electrodes are seen. Hyperinflation. Decreased bronchovascular markings in the lung apices suggestive of emphysematous changes. No acute abnormality is seen. There is no demonstrated pleural abnormality. Normal size heart. A loop recording device is seen overlying the left lower thorax. Normal mediastinum and judy. Normal visualized pulmonary arteries. There is atherosclerotic calcification of the aortic arch with tortuosity. Normal visualized thoracic spine. Normal visualized ribs, clavicles, and shoulders. There is no demonstrated abnormality of the visualized soft tissue structures of the upper abdomen. RAD/Chest 1 View (Portable) IMPRESSION: Hyperinflation. No acute abnormality is seen. Electronically Signed: Ryan Yun, at 14:50 EDT , Service support ,
--- NOTE | 2018-08-21 11:27 | NURSING ---
324 FALL, HIP FX ASEHLFAH
--- NOTE | 2018-08-21 12:57 | HP.PCM_ITS ---
Problem List (1) Closed left hip fracture Status: Acute (2) Microscopic colitis Status: Chronic (3) Status post placement of implantable loop recorder Status: Chronic Comment: 08/27/[address] Loco @ [facility] (4) Secondary pulmonary arterial hypertension Status: Chronic (5) CVA (cerebral vascular accident) Status: Chronic Comment: 04/03/2017 Acute infarct involving right thalamic and posterior limb of right internal capsule (6) Ventricular tachycardia Status: Chronic Comment: 18 beat run of VT per 30 day event monitor (ord by Dr. Rodriguez in neurology: Dr. Loco monitoring) (7) HTN (hypertension) Status: Chronic Qualifiers: (8) COPD (chronic obstructive pulmonary disease) Status: Chronic Qualifiers: History of Present Illness Date of Admission: 08/21/18 Chief Complaint: Fall, left hip pain. The patient is a 68 year old F with past medical history as mentioned above presented to the emergency room because of fall and left hip pain. This morning, patient was walking at home, felt slightly dizzy, had a fall and landed on her left side. She tried to get up and she started having left hip pain, sharp pain, 7-8 oxygen in severity, aggravated by movement, relieved with rest, and without other associated symptoms. She denied syncope, presyncope, chest pain, palpitation, sweating, nausea or vomiting. She did mention that usually, she gets dizzy spells and those has been chronic. She denies cough or sputum production. She denies fever or chills. In the emergency department, her vital signs were stable. Her routine blood work was remarkable for leukopenia, anemia, hyponatremia and hypokalemia. Her EKG revealed normal sinus rhythm with nonspecific ST-T wave changes and no changes compared to previous EKG and no acute ischemic changes. Chest x-ray revealed findings consistent with hyperinflation, no acute findings. X-ray of the pelvis and left hip revealed comminuted intertrochanteric fracture with cephalic displacement of the distal fracture segment. She is being admitted for acute traumatic comminuted left intertrochanteric hip fracture, hypokalemia, chronic hyponatremia and chronic anemia. Past Medical History Past Medical History (Chronic Problems): Chronic Problems (Last Updated 08/21/18 @ 12:55 by Carla Sun MD) Microscopic colitis (Chronic) Status post placement of implantable loop recorder (Chronic) 08/27/[address] Loco @ [facility] Secondary pulmonary arterial hypertension (Chronic) Nicotine dependence (Chronic) CVA (cerebral vascular accident) (Chronic) 04/03/2017 Acute infarct involving right thalamic and posterior limb of right internal capsule Ventricular tachycardia (Chronic) 18 beat run of VT per 30 day event monitor (ord by Dr. Rodriguez in neurology: Dr. Loco monitoring) HTN (hypertension) (Chronic) COPD (chronic obstructive pulmonary disease) (Chronic) Medical History: Medical History (Last Updated 08/21/18 @ 12:55 by Carla Sun MD) Secondary pulmonary arterial hypertension (Chronic) I27.21 Nicotine dependence (Chronic) F17.200 CVA (cerebral vascular accident) (Chronic) I63.9 04/03/2017 Acute infarct involving right thalamic and posterior limb of right internal capsule Ventricular tachycardia (Chronic) I47.2 18 beat run of VT per 30 day event monitor (ord by Dr. Rodriguez in neurology: Dr. Loco monitoring) HTN (hypertension) (Chronic) I10 COPD (chronic obstructive pulmonary disease) (Chronic) J44.9 Bronchitis J40 Crohn disease K50.90 Lupus L93.0 Psoriasis L40.9 left sided paresthesias (Inactive) Allergies No Known Allergies Allergy (Verified 08/21/18 09:22) Home Medications: Ambulatory Orders Medication Instructions Recorded Albuterol Sulfate [Albuterol 8.5 gm IH PRN PRN 08/21/18 Sulfate Hfa] Aspirin [Aspirin, Baby] 81 mg PO DAILY@0800 08/21/18 Atorvastatin Calcium 80 mg PO QHS 08/21/18 Azathioprine [Imuran] 50 mg PO DAILY@0800 08/21/18 Cetirizine HCl [Zyrtec] 10 mg PO DAILY 08/21/18 Citalopram [Celexa] 20 mg PO QHS 08/21/18 Clopidogrel Bisulfate [Clopidogrel] 75 mg PO DAILY 08/21/18 Fluticasone/Salmeterol [Advair 1 ea IH BID 08/21/18 250-50 Diskus] Hydrochlorothiazide [Hctz] 25 mg PO DAILY 08/21/18 Lisinopril 40 mg PO BID 08/21/18 Loperamide [Imodium] 2 mg PO PRN PRN 06/19/19 Metoprolol Succinate 50 mg PO DAILY 08/21/18 Surgical History: Surgical History (Last Reviewed 03/21/18 @ 11:50 by Imtiaz Loco MD) Status post placement of implantable loop recorder (Chronic) Z95.818 08/27/[address] Loco @ [facility] History of appendectomy Z90.49 History of blepharoplasty Z98.890 History of carpal tunnel release Z98.890 History of cataract surgery Z98.49 History of tubal ligation Z98.51 History of appendectomy (Inactive) Z90.49 Status post blepharoplasty of both eyes (Inactive) Z98.890 Surgical History: appendectomy, cataract, - - Bilateral tubal ligation. 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 Lives: Spouse/ Significant Other Smoking Status: Current every day smoker Tobacco Use: Cigarettes Alcohol: None Drugs: None - *Family History Maternal Family History: Family History (Last Reviewed 03/21/18 @ 11:50 by Imtiaz Loco MD) Father Hypertension Lung cancer Mother Lupus Sister Crohn's disease History Items: No pertinent history Paternal Family History: Family History (Last Reviewed 03/21/18 @ 11:50 by Imtiaz Loco MD) Father Hypertension Lung cancer Mother Lupus Sister Crohn's disease History Items: Cancer Review of Systems Constitutional: Denies: Anorexia, Chills, Fever, Weakness Eyes: Denies: Blurred vision, Double vision, Drainage, Redness HEENT: Denies: Difficulty Hearing, Ear Pain, Eye Pain, Nasal Congestion, Sore Throat Cardiovascular: Reports: Light Headedness. Denies: Chest Pain, Chest Pressure, Chest Tightness, Heaviness, Palpitations, Syncope Respiratory: Denies: Cough, Pleuritic Pain, Shortness of Breath, Sputum production, Wheezing Gastrointestinal: Denies: Abdominal Pain, Constipation, Diarrhea, Nausea, Vomiting Genitourinary: Denies: Dysuria, Frequency, Hematuria Musculoskeletal: Denies: Arm Pain, Back Pain, Foot Pain Skin: Denies: Dryness, Rash Neurological: Denies: Balance problems, Double vision, Change in Speech, Slurred speech, Confusion, Incoordination, Numbness Psychiatric: Reports: Anxiety. Denies: Depression Endocrine: Denies: Change in Body Habitus, Polydipsia, Polyuria VTE Information - Inpt Only VTE Present on Admission: No VTE Mechan Device Prophylaxis: SCD's VTE Pharm Prophylaxis ordered?: No Patient Problems: Active and Suspected Problems (Last Updated 08/21/18 @ 12:55 by Carla Sun MD) Closed left hip fracture (Acute) - Physical Exam General: Alert, Oriented x3, Cooperative, No apparent distress HEENT: Atraumatic, PERRLA, EOMI, Normocephalic Oral: Moist Mucosa, No Gingival or Mucosal Lesions/ Ulcerations Neck: Supple, No JVD, Negative Carotid Bruits, Trachea Midline, Thyroid Normal Size and Texture Lungs: Clear to auscultation, No rhonchi, No wheeze, No rales, Diminished Cardiovascular: Regular rate, Regular Rhythm, Normal S1, Normal S2, PMI Normal Abdomen: Bowel Sounds Present, Soft, Non Tender, Non-Distended, No Hepato- splenomegaly Extremities: No clubbing, No cyanosis, No edema, - - Left lower extremity is shortened, externally rotated. Skin: No rashes, No breakdown Lymphatic: No Cervical, Supraclavicular, or Inguinal Adenopathy Neurological: Cranial nerves II-XII grossly intact, - - Minimal left side weakness, power is 4+ by 5. Psych/Mental Status: Normal Affect, Appropriate, Alert and oriented to time, place, person, mood and affect Vital Signs Temp Pulse Resp BP Pulse Ox 97.7 F L 74 16 108/61 98 08/21/18 12:19 08/21/18 12:19 08/21/18 12:19 08/21/18 12:19 08/21/18 12:19 Oxygen Delivery Method Room Air Weight: 132 lb 11.492 oz Body Mass Index (BMI) 23.5 Finger Stick Blood Glucose 90 Laboratory Tests Past 24 Hrs 08/21/18 08/21/18 08/21/18 09:55 09:55 09:55 WBC 4.3 L RBC 2.99 L Hgb 9.5 L Hct 27.1 L MCV 90.6 MCH 31.8 MCHC 35.1 RDW 22.8 H RDW Differential 72.8 H Plt Count 359 MPV 9.0 Differential Comment SCANNED PT 12.4 INR 0.9 Sodium 127 L Potassium 3.0 L Chloride 93 L Carbon Dioxide 27.0 Anion Gap 7 BUN 16 Creatinine 0.91 Estim Creat Clear Calc 50.30 Est GFR (MDRD) Af Amer 79 Est GFR (MDRD) Non-Af 66 BUN/Creatinine Ratio 17.5 Glucose 107 H Calcium 8.6 Magnesium Blood Type Antibody Screen 08/21/18 08/21/18 09:55 10:35 WBC RBC Hgb Hct MCV MCH MCHC RDW RDW Differential Plt Count MPV Differential Comment PT INR Sodium Potassium Chloride Carbon Dioxide Anion Gap BUN Creatinine Estim Creat Clear Calc Est GFR (MDRD) Af Amer Est GFR (MDRD) Non-Af BUN/Creatinine Ratio Glucose Calcium Magnesium 2.0 Blood Type A POSITIVE Antibody Screen NEGATIVE Clinical Impression(s) from Imaging Studies Hip/Pelvis X-Ray 08/21/18 10:06 IMPRESSION: Comminuted intertrochanteric fracture with cephalic displacement of the distal fracture fragment. Electronically Signed: Ryan Yun, at 10:34 EDT , Service support , Knee X-Ray 08/21/18 10:40 IMPRESSION: No abnormality is seen. Electronically Signed: Ryan Yun, at 11:37 EDT , Service support , Assessment/Plan All Active Problems (Last Updated 08/21/18 @ 12:55 by Carla Sun MD) Closed left hip fracture (Acute) This is a 68 years old female patient presented to the emergency room because of fall and left hip pain, found to have comminuted left intertrochanteric hip fracture and she is being admitted for treatment. #1 acute traumatic comminuted left intertrochanteric hip fracture with displacement: X-ray of the pelvis and left hip reviewed. At this time, her vital signs are stable. Routine blood work reviewed as above. Plan: Admit to [facility] floor with telemetry, complete bedrest, IV fluids with potassium replacement, IV morphine PRN for pain, OxyIR plan for pain, IV antiemetics, orthopedic surgery consult which was notified by ER physician, repeat CBC and BMP tomorrow morning, check serum magnesium, PT OT evaluation and treatment when appropriate. #2 preoperative evaluation: Patient with past medical history of stroke, hypertension, COPD, history of microscopic colitis on Imuran which is a immunosuppressive agent and she is current smoker. She lives at home with her , she is dependent and not able to ambulate freely because of history of stroke. She still walks for a few steps at home. Chest x-ray revealed hyperinflation, no acute findings. EKG revealed no acute ischemic changes. She had history of wide-complex tachycardia, was asymptomatic and she had a loop recorder. She was seen on March, by cardiology and she was continued to be monitored without interventions. She has been asymptomatic. Based on her age, functional status, past medical history and serum creatinine and also type of surgery that she is going for, her estimated risk for perioperative myocardial infarction or cardiac arrest is 1.19%. I discussed the case with Dr. Loco, the boring mill operator, regarding her history of abnormal stress test as well as history of wide complex tachycardia/V. tach. Patient has been asymptomatic, 2D echocardiogram on March, revealed ejection fraction of 65%. According to Dr. Loco, no major issues with the loop recorder and patient can proceed for surgery at this time. Patient will be at moderate risk for cardiac complications. Plan: Troponin x1, proceed with surgery if troponin is negative. #3 history of wide complex tachycardia/V. tach/history of abnormal stress test: Status post insertion of implantable loop recorder. At this time, EKG revealed normal sinus rhythm, rate is controlled, no acute ischemic changes. Plan to replace potassium, check magnesium. Will do troponin x1. Case discussed with cardiology and no indication for further cardiac work-up at this time. #4 anemia: It is chronic. Baseline hemoglobin has been around 10 to 11 g/dL, normocytic anemia. Admission hemoglobin is 9.5 g/dL, no active bleeding. Plan to monitor, transfuse if hemoglobin less than 8 g/dL. #5 hyponatremia/hypokalemia: Has chronic hyponatremia which is probably due to HCTZ. Potassium is 3 which is also because of HCTZ. Plan to check serum magnesium, replace potassium, correct sodium with IV fluids, hold HCTZ, repeat BMP tomorrow morning. #6 history of stroke: With minimal left-sided hemiparesis, patient is ambulatory at home but with restrictions. Continue aspirin and statins, hold Plavix for now. #7 hypertension: Blood pressure stable, continue lisinopril and metoprolol, hold HCTZ as above. #8 COPD: Clinically stable, pulse ox is maintained on room air. Plan for albuterol as needed, continue Advair twice daily. #9 microscopic colitis: Patient mentioned that this was the diagnosis mentioned by Dr. Casillas and she was started on Imuran. Stable, patient has been having intermittent diarrhea chronically. Plan to continue Imuran. #10 tobacco abuse: Nicotine patch if requested. #11 DVT prophylaxis: SCDs. This note was generated with [employer] dictation software. It may contain incorrect words, spelling, and punctuation that were not noted in checking the note before signing. Code Visit Inpatient E&M: 52293 Init Hosp L3
[2018-08-21] MEDS: Albuterol 2.5 MG/3 ML VIAL.NEB. INHALATION ×2 (13:57→19:15)
[2018-08-21] MEDS: Morphine 2 MG/ML Syringe IV ×3 (15:19→23:43)
[2018-08-21 16:26] LABS: Color, Urine Yellow (Yellow); Glucose, Dipstick Normal (Normal); Ketone-Dipstick Negative (Negative); Leukocyte Esterase-Dipstick 100 /ul (Negative); Nitrite-Dipstick Negative (Negative); Occult Blood-Urine 50 /ul (Negative); Protein-Dipstick 30 mg/dl (Negative); Urine Bilirubin Dipstick Negative (Negative); Urine Clarity Clear (Clear); Urine Urobilinogen Normal (Normal)
--- NOTE | 2018-08-21 17:22 | PCM.CONS.GEN ---
Reason for Consult Date of Consultation: 08/21/18 Reason for Consultation: Left hip fracture History of Present Illness: The patient is a 68 year old F who presented to the ED after a vasovagal episode causing her to fall landing directly onto her left hip. She states that she did not hit her head and there was no LOC. She had immediate pains in the hip but states she tried to get up a few times but was unable to due to pain and inability to weight bear. She presents with hip externally rotated and knee flexed which is the most comfortable position she states. She denies having any pains in any other joints of the upper and lower extremities of the ispilateral or contralateral extremity. She denies any numbness or tingling of the extremities. [] Past Medical History Past Medical History (Chronic Problems): Chronic Problems (Last Updated 08/21/18 @ 12:55 by Carla Sun MD) Microscopic colitis (Chronic) Status post placement of implantable loop recorder (Chronic) 08/27/[address] Loco @ [facility] Secondary pulmonary arterial hypertension (Chronic) Nicotine dependence (Chronic) CVA (cerebral vascular accident) (Chronic) 04/03/2017 Acute infarct involving right thalamic and posterior limb of right internal capsule Ventricular tachycardia (Chronic) 18 beat run of VT per 30 day event monitor (ord by Dr. Rodriguez in neurology: Dr. Loco monitoring) HTN (hypertension) (Chronic) COPD (chronic obstructive pulmonary disease) (Chronic) Medical History: Medical History (Last Updated 08/21/18 @ 12:55 by Carla Sun MD) Secondary pulmonary arterial hypertension (Chronic) I27.21 Nicotine dependence (Chronic) F17.200 CVA (cerebral vascular accident) (Chronic) I63.9 04/03/2017 Acute infarct involving right thalamic and posterior limb of right internal capsule Ventricular tachycardia (Chronic) I47.2 18 beat run of VT per 30 day event monitor (ord by Dr. Rodriguez in neurology: Dr. Loco monitoring) HTN (hypertension) (Chronic) I10 COPD (chronic obstructive pulmonary disease) (Chronic) J44.9 Bronchitis J40 Crohn disease K50.90 Lupus L93.0 Psoriasis L40.9 left sided paresthesias (Inactive) Allergies No Known Allergies Allergy (Verified 08/21/18 09:22) Home Medications: Ambulatory Orders Medication Instructions Recorded Albuterol Sulfate [Albuterol 8.5 gm IH PRN PRN 08/21/18 Sulfate Hfa] Aspirin [Aspirin, Baby] 81 mg PO DAILY@0800 08/21/18 Atorvastatin Calcium 80 mg PO QHS 08/21/18 Azathioprine [Imuran] 50 mg PO DAILY@0800 08/21/18 Cetirizine HCl [Zyrtec] 10 mg PO DAILY 08/21/18 Citalopram [Celexa] 20 mg PO QHS 08/21/18 Clopidogrel Bisulfate [Clopidogrel] 75 mg PO DAILY 08/21/18 Fluticasone/Salmeterol [Advair 1 ea IH BID 08/21/18 250-50 Diskus] Hydrochlorothiazide [Hctz] 25 mg PO DAILY 08/21/18 Lisinopril 40 mg PO BID 08/21/18 Loperamide [Imodium] 2 mg PO PRN PRN 08/21/18 Metoprolol Succinate 50 mg PO DAILY 08/21/18 Surgical History: Surgical History (Last Reviewed 03/21/18 @ 11:50 by Imtiaz Loco MD) Status post placement of implantable loop recorder (Chronic) Z95.818 08/27/[address] Loco @ [facility] History of appendectomy Z90.49 History of blepharoplasty Z98.890 History of carpal tunnel release Z98.890 History of cataract surgery Z98.49 History of tubal ligation Z98.51 History of appendectomy (Inactive) Z90.49 Status post blepharoplasty of both eyes (Inactive) Z98.890 Surgical History: appendectomy, cataract, - - Bilateral tubal ligation. 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 history Lives: Spouse/ Significant Other Smoking Status: Current every day smoker Tobacco Use: Cigarettes Alcohol: None Drugs: None - *Family History Maternal Family History: Family History (Last Reviewed 03/21/18 @ 11:50 by Imtiaz Loco MD) Father Hypertension Lung cancer Mother Lupus Sister Crohn's disease History Items: No pertinent history Paternal Family History: Family History (Last Reviewed 03/21/18 @ 11:50 by Imtiaz Loco MD) Father Hypertension Lung cancer Mother Lupus Sister Crohn's disease History Items: Cancer Patient Problems: Active and Suspected Problems (Last Updated 08/21/18 @ 12:55 by Carla Sun MD) Closed left hip fracture (Acute) Subjective: Patient complains of left hip pain upon examination. Pains are more located in the groin/inner thigh. She has pains with any movement of the hip and with knee extension. She has some mild tenderenss on palpation of the medial hip region. Patient denies any numbness or tingling in the extremity. She denies pains in the ipsilateral knee, ankle or foot or any upper extremity pains. She also denies any pains on the contralateral lower and upper extremity. - Physical Exam General: Alert, Oriented x3, Cooperative, Well developed, Well nourished HEENT: Atraumatic Oral: Moist Mucosa Extremities: No edema, Capillary Refill Less than 3 Seconds, No Calf Tenderness, Edema, Peripheral Pulses Normal Skin: No rashes, No breakdown, - - patient does have small area of bruising on the right wrist area. She denies any tenderness on palpation. Musculoskeletal: No Muscle Wasting, Tenderness - left hip pain only, - - Patient is lying in the bed with hip externally rotation and knee flexed. She has pains with any extension of the knee and thus does not want to move the knee. She states that she has no pains in the knee. Neurological: Neuro grossly intact - Patient has normal movement of the ankle. She does have movements of the toes at the same is decreased with some chronic extension of the toes that occurred following stroke, - - Patient Psych/Mental Status: Normal Affect Vital Signs Temp Pulse Resp BP Pulse Ox 97.9 F 71 18 114/61 97 08/21/18 15:30 08/21/18 15:30 08/21/18 15:30 08/21/18 15:30 08/21/18 15:30 Oxygen Delivery Method Room Air Weight: 132 lb 11.492 oz Body Mass Index (BMI) 23.5 Finger Stick Blood Glucose 90 Laboratory Tests Past 24 Hrs 08/20/18 08/21/18 08/21/18 16:15 09:55 09:55 WBC 4.3 L RBC 2.99 L Hgb 9.5 L Hct 27.1 L MCV 90.6 MCH 31.8 MCHC 35.1 RDW 22.8 H RDW Differential 72.8 H Plt Count 359 MPV 9.0 Differential Comment SCANNED PT 12.4 INR 0.9 Sodium Potassium Chloride Carbon Dioxide Anion Gap BUN Creatinine Estim Creat Clear Calc Est GFR (MDRD) Af Amer Est GFR (MDRD) Non-Af BUN/Creatinine Ratio Glucose Calcium Magnesium Troponin I Urine Color Yellow Urine Clarity Clear Urine pH 7.0 Ur Specific [place] 1.010 Urine Protein 30 H Urine Glucose (UA) Normal Urine Ketones Negative Urine Occult Blood 50 H Urine Nitrite Negative Urine Bilirubin Negative Urine Urobilinogen Normal Ur Leukocyte Esterase 100 H Blood Type Antibody Screen 08/21/18 08/21/18 08/21/18 09:55 09:55 10:35 WBC RBC Hgb Hct MCV MCH MCHC RDW RDW Differential Plt Count MPV Differential Comment PT INR Sodium 127 L Potassium 3.0 L Chloride 93 L Carbon Dioxide 27.0 Anion Gap 7 BUN 16 Creatinine 0.91 Estim Creat Clear Calc 50.30 Est GFR (MDRD) Af Amer 79 Est GFR (MDRD) Non-Af 66 BUN/Creatinine Ratio 17.5 Glucose 107 H Calcium 8.6 Magnesium 2.0 Troponin I Urine Color Urine Clarity Urine pH Ur Specific [place] Urine Protein Urine Glucose (UA) Urine Ketones Urine Occult Blood Urine Nitrite Urine Bilirubin Urine Urobilinogen Ur Leukocyte Esterase Blood Type A POSITIVE Antibody Screen NEGATIVE 08/21/18 13:35 WBC RBC Hgb Hct MCV MCH MCHC RDW RDW Differential Plt Count MPV Differential Comment PT INR Sodium Potassium Chloride Carbon Dioxide Anion Gap BUN Creatinine Estim Creat Clear Calc Est GFR (MDRD) Af Amer Est GFR (MDRD) Non-Af BUN/Creatinine Ratio Glucose Calcium Magnesium Troponin I < 0.015 Urine Color Urine Clarity Urine pH Ur Specific [place] Urine Protein Urine Glucose (UA) Urine Ketones Urine Occult Blood Urine Nitrite Urine Bilirubin Urine Urobilinogen Ur Leukocyte Esterase Blood Type Antibody Screen Assessment/Plan All Active Problems (Last Updated 08/21/18 @ 12:55 by Carla Sun MD) Closed left hip fracture (Acute) Patient presents to the ED post fall causing intertrochanteric fracture with possible lesser trochanter extension. PAtient to be admitted to the hospital under hospitalist care Patient to be NPO after midnight Plan is to proceed with surgery tomorrow early afternoon as long as she is medically cleared by hospitalist.
[2018-08-21] MEDS: Budesonide Respules 0.5 MG/2 ML AMPUL.NEB. INHALATION (19:15)
[2018-08-21] MEDS: oxyCODONE 5 MG Tablet PO (21:05)
[2018-08-21] MEDS: Atorvastatin Calcium 80 MG Tablet PO (21:06)
[2018-08-21] MEDS: Lisinopril 40 MG Tablet PO (21:06)
[2018-08-21] MEDS: Citalopram 20 MG Tablet PO (21:09)
[2018-08-22] VITALS (23 sets, daily range): BP systolic 101–128; BP diastolic 49–78; PULSE 73–89; RESP 16–18; TEMP 36.3–37.3; O2SAT 90–100; BMI 23.5
[2018-08-22] MEDS: Zolpidem Tartrate 5 MG Tablet PO ×2 (00:26→20:12)
[2018-08-22] MEDS: Morphine 2 MG/ML Syringe IV ×5 (05:38→23:49)
[2018-08-22 06:00] LABS: Absolute Lymphocyte Count 0.26 X10^3/ul (0.83-4.51); Absolute Neutrophil Count 3.2 X10^3/uL (2.0-7.7); Basophil# 0.01 X10^3/uL; Basophil% 0.3 % (0-1); Eosinophil# 0.02 X10^3/uL; Eosinophils% 0.5 % (0-5); Hematocrit 24.7 % (37-47); Hemoglobin 8.4 g/dl (12.0-15.0); Lymphocyte # 0.26 X10^3/ul (4.0); Lymphocyte % 7.1 % (19-41); Mean Corpuscular Hgb 31.7 pg (27.0-32.0); Mean Corpuscular Volume 93.2 fL (81-99); Monocyte# 0.21 X10^3/uL; Monocyte% 5.7 % (0-10); Neutrophil # 3.15 X10^3/uL (2.7-7.7); Neutrophil % 86.1 % (47-70); Platelet Count 355 K/mm3 (150-450); RBC Distribution Width CV 23.2 % (11.6-14.6); Red Blood Count 2.65 M/mm3 (4.2-5.4); White Blood Count 3.7 K/mm3 (4.4-11.0)
[2018-08-22 06:04] LABS: Differential Indicated SCAN CRITERIA MET; POSITIVE COUNT NO; POSITIVE DIFFERENTIAL YES; POSITIVE MORPHOLOGY YES
[2018-08-22 06:09] LABS: Anion Gap 8 (5-15); BUN 16 mg/dL (7-18); BUN/Creat Ratio 15.4 RATIO (10-20); Chloride 97 mmol/L (98-107); Creatinine, Serum 1.04 mg/dL (0.55-1.02); EST Glomerular Filtration Rate 56 mL/min (>60); Est Glom Filt Rate - Afr Amer 68 mL/min (>60); Estimated Creatinine Clearance 44.02 ml/min; Glucose 97 mg/dL (74-106); Potassium 3.7 mmol/L (3.5-5.1); Sodium Level 129 mmol/L (136-145)
--- NOTE | 2018-08-22 06:31 | NURSING ---
PT MADE NPO FOR POSSIBLE SURGERY TODAY AT 1400
[2018-08-22 06:45] LABS: Anisocytosis 1+; Differential Comment SCAN; Hypochromasia 1+; Platelet Estimate ADEQUATE (ADEQ); Platelet Morphology LARGE; Polychromasia 1+
[2018-08-22 06:46] LABS: Microcytosis 1+; Ovalocyte RARE; Schistocytes RARE
[2018-08-22] MEDS: Albuterol 2.5 MG/3 ML VIAL.NEB. INHALATION ×2 (06:53→19:24)
[2018-08-22] MEDS: Budesonide Respules 0.5 MG/2 ML AMPUL.NEB. INHALATION ×2 (06:53→19:24)
--- NOTE | 2018-08-22 08:29 | NURSING ---
PLACED PT ON 2l 02 FOR POX OF 91%
[2018-08-22] MEDS: Metoprolol(XL)Succ 50 MG Tablet PO (08:33)
--- NOTE | 2018-08-22 08:54 | PCM.PROGNOTE ---
Patient Problems: Active and Suspected Problems (Last Updated 08/21/18 @ 12:55 by Carla Sun MD) Closed left hip fracture (Acute) Subjective: Chief complaint: Follow-up after admission for acute traumatic comminuted left intertrochanteric hip fracture with displacement. Patient seen and examined. No acute events overnight. She mentioned that she was not able to sleep overnight partially because of left hip pain. This morning, pain is manageable but still getting pains upon movement. Denies chest pain or shortness of breath. - Physical Exam General: Alert, Oriented x3, Cooperative, No apparent distress HEENT: Atraumatic, PERRLA, EOMI, Normocephalic Oral: Moist Mucosa, No Gingival or Mucosal Lesions/ Ulcerations Neck: Supple, No JVD, Negative Carotid Bruits, Trachea Midline, Thyroid Normal Size and Texture Lungs: No wheeze, No rales, Diminished, Rhonchi Cardiovascular: Regular rate, Regular Rhythm, Normal S1, Normal S2, PMI Normal Abdomen: Bowel Sounds Present, Soft, Non Tender, Non-Distended, No Hepato-splenomegaly Extremities: No clubbing, No cyanosis, No edema, - Skin: No rashes, No breakdown Lymphatic: No Cervical, Supraclavicular, or Inguinal Adenopathy Neurological: Cranial nerves II-XII grossly intact, Neuro grossly intact Psych/Mental Status: Normal Affect, Appropriate, Alert and oriented to time, place, person, mood and affect Vital Signs Temp Pulse Resp BP Pulse Ox 99 F 89 16 122/72 H 93 08/22/18 08:00 08/22/18 08:33 08/22/18 08:00 08/22/18 08:00 08/22/18 08:31 Oxygen Flow Rate (L/min) 2 Oxygen Delivery Method Nasal Cannula Weight: 132 lb 11.492 oz Body Mass Index (BMI) 23.5 Finger Stick Blood Glucose 90 Intake and Output for Last 24 Hours 08/20/18 08/21/18 08/22/18 23:59 23:59 23:59 Intake Total 1532 / 1532 548 / 548 Output Total 525 / 525 150 / 150 Balance 1007 / 1007 398 / 398 Laboratory Tests Past 24 Hrs 08/20/18 08/21/18 08/21/18 16:15 09:55 09:55 WBC 4.3 L RBC 2.99 L Hgb 9.5 L Hct 27.1 L MCV 90.6 MCH 31.8 MCHC 35.1 RDW 22.8 H RDW Differential 72.8 H Plt Count 359 MPV 9.0 Immature Gran % (Auto) Neut % (Auto) Lymph % (Auto) [place] % (Auto) Eos % (Auto) Baso % (Auto) Absolute Neuts (auto) Absolute Lymphs (auto) Total Counted Differential Comment SCANNED Diff Path Review Platelet Estimate Plt Morphology Comment Polychromasia Hypochromasia Anisocytosis Microcytosis Ovalocytes Schistocytes PT 12.4 INR 0.9 Sodium Potassium Chloride Carbon Dioxide Anion Gap BUN Creatinine Estim Creat Clear Calc Est GFR (MDRD) Af Amer Est GFR (MDRD) Non-Af BUN/Creatinine Ratio Glucose Calcium Magnesium Troponin I Urine Color Yellow Urine Clarity Clear Urine pH 7.0 Ur Specific [place] 1.010 Urine Protein 30 H Urine Glucose (UA) Normal Urine Ketones Negative Urine Occult Blood 50 H Urine Nitrite Negative Urine Bilirubin Negative Urine Urobilinogen Normal Ur Leukocyte Esterase 100 H Blood Type Antibody Screen 08/21/18 08/21/18 08/21/18 09:55 09:55 10:35 WBC RBC Hgb Hct MCV MCH MCHC RDW RDW Differential Plt Count MPV Immature Gran % (Auto) Neut % (Auto) Lymph % (Auto) [place] % (Auto) Eos % (Auto) Baso % (Auto) Absolute Neuts (auto) Absolute Lymphs (auto) Total Counted Differential Comment Diff Path Review Platelet Estimate Plt Morphology Comment Polychromasia Hypochromasia Anisocytosis Microcytosis Ovalocytes Schistocytes PT INR Sodium 127 L Potassium 3.0 L Chloride 93 L Carbon Dioxide 27.0 Anion Gap 7 BUN 16 Creatinine 0.91 Estim Creat Clear Calc 50.30 Est GFR (MDRD) Af Amer 79 Est GFR (MDRD) Non-Af 66 BUN/Creatinine Ratio 17.5 Glucose 107 H Calcium 8.6 Magnesium 2.0 Troponin I Urine Color Urine Clarity Urine pH Ur Specific [place] Urine Protein Urine Glucose (UA) Urine Ketones Urine Occult Blood Urine Nitrite Urine Bilirubin Urine Urobilinogen Ur Leukocyte Esterase Blood Type A POSITIVE Antibody Screen NEGATIVE 08/21/18 08/22/18 08/22/18 13:35 05:29 05:29 WBC 3.7 L RBC 2.65 L Hgb 8.4 L Hct 24.7 L MCV 93.2 MCH 31.7 MCHC 34.0 RDW 23.2 H RDW Differential 74.0 H Plt Count 355 MPV 9.0 Immature Gran % (Auto) 0.300 Neut % (Auto) 86.1 H Lymph % (Auto) 7.1 L [place] % (Auto) 5.7 Eos % (Auto) 0.5 Baso % (Auto) 0.3 Absolute Neuts (auto) 3.2 Absolute Lymphs (auto) 0.26 L Total Counted Not Reportable Differential Comment SCAN Diff Path Review May foll Platelet Estimate ADEQUATE Plt Morphology Comment LARGE Polychromasia 1+ Hypochromasia 1+ Anisocytosis 1+ Microcytosis 1+ Ovalocytes RARE Schistocytes RARE PT INR Sodium 129 L Potassium 3.7 Chloride 97 L Carbon Dioxide 24.0 Anion Gap 8 BUN 16 Creatinine 1.04 H Estim Creat Clear Calc 44.02 Est GFR (MDRD) Af Amer 68 Est GFR (MDRD) Non-Af 56 L BUN/Creatinine Ratio 15.4 Glucose 97 Calcium 8.0 L Magnesium Troponin I < 0.015 Urine Color Urine Clarity Urine pH Ur Specific [place] Urine Protein Urine Glucose (UA) Urine Ketones Urine Occult Blood Urine Nitrite Urine Bilirubin Urine Urobilinogen Ur Leukocyte Esterase Blood Type Antibody Screen Clinical Impression(s) from Imaging Studies Hip/Pelvis X-Ray 08/21/18 10:06 IMPRESSION: Comminuted intertrochanteric fracture with cephalic displacement of the distal fracture fragment. Electronically Signed: Ryan Yun, at 10:34 EDT , Service support , Knee X-Ray 08/21/18 10:40 IMPRESSION: No abnormality is seen. Electronically Signed: Ryan Yun, at 11:37 EDT , Service support , Chest X-Ray 08/21/18 10:55 IMPRESSION: Hyperinflation. No acute abnormality is seen. Electronically Signed: Ryan Yun, at 14:50 EDT , Service support , Medical Necessity - Tobacco Use Smoking Status: Current every day smoker Tobacco Use: Cigarettes Assessment/Plan All Active Problems (Last Updated 08/21/18 @ 12:55 by Carla Sun MD) Closed left hip fracture (Acute) This is a 68 years old female patient presented to the emergency room because of fall and left hip pain, found to have comminuted left intertrochanteric hip fracture and she is being admitted for treatment. #1 acute traumatic comminuted left intertrochanteric hip fracture with displacement: She is on IV morphine as well as OxyIR PRN for pain. Hemodynamically stable. Repeat CBC and BMP from today reviewed, revealed hemoglobin of 8.4 g/dL, sodium of 129 and potassium 3.7. Patient is going for surgery today. Plan for repeat CBC and BMP tomorrow morning. #2 preoperative evaluation: Patient with past medical history of stroke, hypertension, COPD, history of microscopic colitis on Imuran which is a immunosuppressive agent and she is current smoker. She lives at home with her , she is dependent and not able to ambulate freely because of history of stroke. She still walks for a few steps at home. Chest x-ray revealed hyperinflation, no acute findings. EKG revealed no acute ischemic changes. She had history of wide-complex tachycardia, was asymptomatic and she had a loop recorder. She was seen on March, by cardiology and she was continued to be monitored without interventions. She has been asymptomatic. Based on her age, functional status, past medical history and serum creatinine and also type of surgery that she is going for, her estimated risk for perioperative myocardial infarction or cardiac arrest is 1.19%. I discussed the case with Dr. Loco, the dining room supervisor, regarding her history of abnormal stress test as well as history of wide complex tachycardia/V. tach. Patient has been asymptomatic, 2D echocardiogram on March, revealed ejection fraction of 65%. According to Dr. Loco, no major issues with the loop recorder and patient can proceed for surgery at this time. Patient will be at moderate risk for cardiac complications. Troponin was negative x1. Plan to proceed with surgery today. #3 history of wide complex tachycardia/V. tach/history of abnormal stress test: Status post insertion of implantable loop recorder. EKG from yesterday revealed normal sinus rhythm, rate is controlled, no acute ischemic changes. Potassium replaced and corrected. Serum magnesium is normal. Troponin negative x1. Case discussed with cardiology and no indication for further cardiac work-up at this time. #4 anemia: It is chronic. Baseline hemoglobin has been around 10 to 11 g/dL, normocytic anemia. Admission hemoglobin is 9.5 g/dL, today's hemoglobin is 8.4 g/dL. No active bleeding. Plan to monitor, transfuse if hemoglobin less than 8 g/dL. #5 hyponatremia/hypokalemia: Has chronic hyponatremia which is probably due to HCTZ. Potassium replaced and corrected, serum magnesium is normal. Serum sodium improved, it is up to 129 today. Plan to repeat BMP tomorrow morning. #6 history of stroke: With minimal left-sided hemiparesis, patient is ambulatory at home but with restrictions. Continue aspirin and statins, hold Plavix for now. #7 hypertension: Blood pressure stable, continue lisinopril and metoprolol, hold HCTZ as above. #8 COPD: Clinically stable, Continue albuterol as needed, continue Advair twice daily. #9 microscopic colitis: Patient mentioned that this was the diagnosis mentioned by Dr. Casillas and she was started on Imuran. Stable, patient has been having intermittent diarrhea chronically. Continue Imuran. #10 tobacco abuse: Nicotine patch if requested. #11 DVT prophylaxis: SCDs. This note was generated with [employer] software. It may contain incorrect words, spelling, and punctuation that were not noted in checking the note before signing. Code Visit Inpatient E&M: 23832 Subs Hosp L3
--- NOTE | 2018-08-22 09:08 | CASEMGMT ---
SW met w/pt today in regard to prior level of function and anticipated discharge plan. Pt is to have surgery later today for fractured hip. PCP: Dr. Bonner [facility] Insurance/Prescription plan: [employer] Medicare Living Will/POA: Pt does not have, not interested in completing documents at this time. LNOK: Pt has daughter who lives in [place], two grandchildren, Living arrangements/Prior level of function: Pt lives w/ in one story house, three steps in, with a basement. Pt does not need to go to basement. Pt was independent w/ADL's including self care, driving, med management. Pt's granddaughter does help w/cleaning. states she has not been cooking as pt's is going through chemo and radiation and has a peg tube at present. Daughter is helpful though at present she is out of town. DME/HHC: Pt has a cane, walker and shower chair as had stroke in the past. Pt has no history of home health or SNF. SW spoke w/pt about plan after surgery, pt is not sure, just wants to get through today. SW did give pt list of SNF's in the area that take her insurance. SW explained will speak w/her tomorrow once she has had PT/OT to again review discharge options. SW will continue to follow. Plan: TBD, home w/hhc vs SNF. POLI Castro
[2018-08-22] MEDS: 0.9% Normal Saline 1,000 ML 100 ML IV (10:02)
--- NOTE | 2018-08-22 13:06 | NURSING ---
CALLED REPORT TO [facility], PT LEFT FLOOR TO SURGERY
--- NOTE | 2018-08-22 14:05 | RAD_ITS ---
STUDY: X-RAY - PELVIS AND LEFT HIP REASON FOR EXAM: Female, 68 years old. Fixation of left intertrochanteric fracture. Intraoperative images. TECHNIQUE: 13 intraoperative digital views of the pelvis and hip. COMPARISON: August 21, 2018. FINDINGS: There is a non-specific bowel gas pattern. Normal visualized soft tissue structures. Normal bilateral iliac wings, sacroiliac joints and visualized sacrum. Normal bilateral superior and inferior pubic rami. Normal pubic symphysis. Normal bilateral ischial tuberosities. 13 intraoperative digital documentation of these show intramedullary mann placement in the left femur with interlocking femoral head screw proximally with distal interlocking cancellus screws. Avulsion of the lesser trochanter is present. RAD/Hip Min 2 Views (Portable) IMPRESSION: Intraoperative digital documentation views as described. Electronically Signed: Papo Swenson MD at 17:18 EDT , Service support ,
--- NOTE | 2018-08-22 14:24 | OP.PCM_ITS ---
Report of Operation Date of Procedure: 08/22/18 Pre-Operative Diagnosis: left hip unstable intertrochanteric fracture Post-Operative Diagnosis: same Surgery/Procedure Performed:: left hip cephalomedullary nailing general helper: Angel Motta Type of Anesthesia:: General Anesthesiologist: Rey Smith Estimated Blood Loss (mL): 150cc lr Fluids Replaced: 1000ml lr Description of Procedure: Preop note Patient is a 68-year-old female who felt dizzy and fell on her left hip. Immediate inability to weight-bear sent to the emergency room x-rays of the hip show a displaced intertrochanteric proximal substernal extension. Risks benefits alternatives surgery discussed the patient risks including but not limited to blood loss, blood clot, infection, neurovascular injury, failure procedure, loss of life and loss of limb. Patient is aware like proceed with left hip cephalo-medullary nailing. Biggest risk for this procedure was also discussed was cut out and need for conversion to a stroke replacing arthroplasty. Please note secondary survey was negative patient denied any head trauma loss of consciousness she does not have any headache nausea or other pain in the joints/limbs of the than her left hip. Op note Patient seen and examined preoperative holding area. Left hip was marked. Please note that preoperatively also get x-rays of her knee which were negative. Left hip was prepped and draped after patient was placed in traction. Timeout was performed. We confirmed in AP and lateral planes reduction of our inner choke which was well reduced. The left hip greater troches was then marked out to use her guide wire at the level of the greater choke angling towards the level anger towards the level of the lesser trochanteric. A 15 blade was used to create her incision about 4 fingerbreadths proximal to the greater troches. We then over reamed our guidewire we then placed a ball-tipped guidewire down to the level of the suprapatellar area. We measured a 3's [address] a 360 mm nail. We then reamed starting with 8-1/2 were able to ream up to a 12- 1/2. We then placed an 11 x 360 cephalo-medullary nail into the shaft used fluoroscopy to ascertain the level of the helical blade guidewire. This was drilled in center center a little bit posterior in the head and little more inferior. We then able to be over we both measure it to be about 90. We then overreamed the 90s and then placed our 90 mm helical blade into the head. We had good reduction of the fracture site with a helical blade then locked it superiorly and the outrigger was removed. Because he had a little bit of sub- stroke extension we decided to perfect circles and locked distally this was done under standard technique placing a 38 and a 40 mm screw distally. We confirmed in multiple planes AP lateral and 10 a 10 degree oblique that we had good reduction of the fracture as well as good placement of our screws now which we did have. The incisions were all irrigated with copious muscle sterile saline. Incision were closed with 2-0 Vicryl and sherley. Sterile dressings were applied. Patient tolerated procedure well no complications transferred recovery room in stable condition. Postoperative note Weight-bear as tolerated left leg Ancef PT Reneenox Call with increased pain numbness tingling or further issues arise This note was generated with [employer] dictation software. It may contain incorrect words, spelling, and punctuation that were not noted in checking the note before signing.
--- NOTE | 2018-08-22 15:02 | PCA ---
pt off floor
[2018-08-22] MEDS: Mupirocin Ointment 22gm Tube 1 APPLIC (15:57)
--- NOTE | 2018-08-22 16:29 | EKG12_ITS ---
Test Reason : POST OP Blood Pressure : / mmHG Vent. Rate : 084 BPM Atrial Rate : 084 BPM P-R Int : 162 ms QRS Dur : 074 ms QT Int : 352 ms P-R-T Axes : 078 061 184 degrees QTc Int : 415 ms Normal sinus rhythm ST & T wave abnormality, consider inferior ischemia ST & T wave abnormality, consider anterolateral ischemia Abnormal ECG Confirmed by BAKARI BRYANT, MALISSA ([id number]), sound editor AN MARQUEZ ([id number]) on 09/04/2018 1:04:22 PM Referred By: Carla Sun Confirmed By:MALISSA VILLEGAS MD
--- NOTE | 2018-08-22 16:50 | RAD_ITS ---
STUDY: X-RAY - PELVIS AND LEFT HIP REASON FOR EXAM: Female, 68 years old. Postop from hip fracture surgery TECHNIQUE: 5 views of the pelvis and hip. COMPARISON: None. FINDINGS: Patient is status post open reduction internal fixation of an intertrochanteric fracture of the left femur. Alignment at the fracture site is anatomic. The lesser trochanter remains displaced medially and superiorly relative to its expected position. No postoperative complication noted. Normal soft tissue swelling and subcutaneous emphysema RAD/Hip Min 2 Views (Portable) IMPRESSION: Status post ORIF of an intertrochanteric fracture of the left femur. No postoperative complications, follow-up recommended to assure osseous union Electronically Signed: Aguila Kathleen MD at 17:35 EDT , Service support ,
[2018-08-22] MEDS: oxyCODONE 5 MG Tablet PO (20:11)
[2018-08-22] MEDS: Citalopram 20 MG Tablet PO (20:11)
[2018-08-22] MEDS: Atorvastatin Calcium 80 MG Tablet PO (20:12)
[2018-08-22] MEDS: Lisinopril 40 MG Tablet PO (20:12)
[2018-08-22] MEDS: Cefazolin 1 GM/50 ML BAG IV (22:14)
[2018-08-22] MEDS: Acetaminophen 325 MG Tablet 650 MG PO (23:50)
[2018-08-23] VITALS (27 sets, daily range): BP systolic 72–126; BP diastolic 42–66; PULSE 72–106; RESP 15–20; TEMP 36.4–38.5; O2SAT 93–100
[2018-08-23] MEDS: 0.9% Normal Saline 1,000 ML 75 ML IV (04:13)
[2018-08-23] MEDS: Cefazolin 1 GM/50 ML BAG IV (05:46)
--- NOTE | 2018-08-23 05:55 | EKG12_ITS ---
Test Reason : AM EKG Blood Pressure : / mmHG Vent. Rate : 086 BPM Atrial Rate : 086 BPM P-R Int : 158 ms QRS Dur : 084 ms QT Int : 350 ms P-R-T Axes : 075 055 168 degrees QTc Int : 418 ms Normal sinus rhythm ST & T wave abnormality, consider inferior ischemia ST & T wave abnormality, consider anterolateral ischemia Abnormal ECG When compared with ECG of 22-AUG-2018 16:34, MANUAL COMPARISON REQUIRED, DATA IS UNCONFIRMED Confirmed by SARA BRYANT, THUAN ([id number]), dictionary editor AN MARQUEZ ([id number]) on 08/27/2018 8:16:22 AM Referred By: Carla Sun Confirmed By:THUAN RUIZ MD
[2018-08-23 06:21] LABS: Absolute Lymphocyte Count 0.32 X10^3/ul (0.83-4.51); Absolute Neutrophil Count 1.6 X10^3/uL (2.0-7.7); Eosinophil# 0.02 X10^3/uL; Eosinophils% 0.9 % (0-5); Hematocrit 16.2 % (37-47); Lymphocyte # 0.32 X10^3/ul (4.0); Lymphocyte % 14.4 % (19-41); Mean Corpuscular Hgb 32.2 pg (27.0-32.0); Mean Corpuscular Volume 94.7 fL (81-99); Mean Platelet Vol. 8.3 fl (6.2-12.0); Monocyte# 0.26 X10^3/uL; Monocyte% 11.7 % (0-10); Neutrophil # 1.62 X10^3/uL (2.7-7.7); Platelet Count 253 K/mm3 (150-450); RBC Distribution Width CV 22.6 % (11.6-14.6); RBC Distribution Width SD 71.6 fl (35.1-43.9); Red Blood Count 1.71 M/mm3 (4.2-5.4); White Blood Count 2.2 K/mm3 (4.4-11.0)
[2018-08-23 06:23] LABS: Anion Gap 5 (5-15); BUN 15 mg/dL (7-18); BUN/Creat Ratio 12.6 RATIO (10-20); Calcium,Total 6.8 mg/dL (8.5-10.1); Chloride 101 mmol/L (98-107); Creatinine, Serum 1.19 mg/dL (0.55-1.02); EST Glomerular Filtration Rate 48 mL/min (>60); Est Glom Filt Rate - Afr Amer 58 mL/min (>60); Estimated Creatinine Clearance 38.47 ml/min; Glucose 117 mg/dL (74-106); Potassium 3.6 mmol/L (3.5-5.1); Sodium Level 128 mmol/L (136-145)
[2018-08-23 06:34] LABS: Differential Indicated SCAN CRITERIA MET; Hemoglobin 5.5 g/dl (12.0-15.0); POSITIVE COUNT YES; POSITIVE DIFFERENTIAL YES; POSITIVE MORPHOLOGY YES
[2018-08-23 07:15] LABS: Differential Comment SCAN
[2018-08-23 07:16] LABS: Anisocytosis 2+; Hypochromasia 1+; Microcytosis 1+; Ovalocyte RARE; Platelet Estimate ADEQUATE (ADEQ); Polychromasia 1+; Schistocytes RARE; Tear Drop Cell RARE
[2018-08-23] MEDS: Albuterol 2.5 MG/3 ML VIAL.NEB. INHALATION ×3 (07:23→19:39)
[2018-08-23] MEDS: Budesonide Respules 0.5 MG/2 ML AMPUL.NEB. INHALATION ×2 (07:23→19:39)
--- NOTE | 2018-08-23 08:42 | PN_ITS ---
Patient Problems: Active and Suspected Problems (Last Updated 08/21/18 @ 12:55 by Carla Sun MD) Closed left hip fracture (Acute) Subjective: Chief complaint: Follow-up after admission for acute traumatic comminuted left intertrochanteric hip fracture with displacement. Postoperatively, she developed acute on chronic anemia and EKG changes. Patient seen and examined. No acute events overnight. She mentioned that she was not able to sleep last night. This morning, her pain is manageable. She denies any chest pain or shortness of breath. She denied dizziness or lightheadedness. She is afebrile, heart rate has been stable, blood pressure still borderline, pulse ox is 94% on 2 L. - Physical Exam General: Alert, Oriented x3, Cooperative, No apparent distress HEENT: Atraumatic, PERRLA, EOMI, Normocephalic Oral: Moist Mucosa, No Gingival or Mucosal Lesions/ Ulcerations Neck: Supple, No JVD, Negative Carotid Bruits, Trachea Midline, Thyroid Normal Size and Texture Lungs: No wheeze, No rales, Diminished, Rhonchi Cardiovascular: Regular rate, Regular Rhythm, Normal S1, Normal S2, PMI Normal Abdomen: Bowel Sounds Present, Soft, Non Tender, Non-Distended, No Hepato- splenomegaly Extremities: No clubbing, No cyanosis, No edema Skin: No rashes, No breakdown Lymphatic: No Cervical, Supraclavicular, or Inguinal Adenopathy Neurological: Cranial nerves II-XII grossly intact, Neuro grossly intact Psych/Mental Status: Normal Affect, Appropriate, Alert and oriented to time, place, person, mood and affect Vital Signs Temp Pulse Resp BP Pulse Ox 98.8 F 94 16 95/54 L 94 08/23/18 08:25 08/23/18 08:25 08/23/18 08:25 08/23/18 08:25 08/23/18 08:25 Oxygen Flow Rate (L/min) 2 Oxygen Delivery Method Nasal Cannula Weight: 132 lb 11.492 oz Body Mass Index (BMI) 23.5 Finger Stick Blood Glucose 90 Intake and Output for Last 24 Hours 08/21/18 08/22/18 08/23/18 23:59 23:59 23:59 Intake Total 1532 / 1532 2033 / 2569 1547 / 1547 Output Total 525 / 525 620 / 870 325 / 325 Balance 1007 / 1007 1413 / 1699 1222 / 1222 Laboratory Tests Past 24 Hrs 08/21/18 08/22/18 08/22/18 10:34 16:48 19:55 WBC RBC Hgb Hct MCV MCH MCHC RDW RDW Differential Plt Count MPV Immature Gran % (Auto) Neut % (Auto) Lymph % (Auto) [place] % (Auto) Eos % (Auto) Baso % (Auto) Absolute Neuts (auto) Absolute Lymphs (auto) Total Counted Differential Comment Diff Path Review Platelet Estimate Polychromasia Hypochromasia Anisocytosis Microcytosis Tear Drop Cells Ovalocytes Schistocytes Sodium Potassium Chloride Carbon Dioxide Anion Gap BUN Creatinine Estim Creat Clear Calc Est GFR (MDRD) Af Amer Est GFR (MDRD) Non-Af BUN/Creatinine Ratio Glucose Calcium Troponin I < 0.015 < 0.015 Crossmatch See Detail 08/23/18 08/23/18 08/23/18 00:18 05:57 05:57 WBC 2.2 L RBC 1.71 L Hgb 5.5 L* Hct 16.2 L MCV 94.7 MCH 32.2 H MCHC 34.0 RDW 22.6 H RDW Differential 71.6 H Plt Count 253 MPV 8.3 Immature Gran % (Auto) 0.000 Neut % (Auto) 73.0 H Lymph % (Auto) 14.4 L [place] % (Auto) 11.7 H Eos % (Auto) 0.9 Baso % (Auto) 0.0 Absolute Neuts (auto) 1.6 L Absolute Lymphs (auto) 0.32 L Total Counted Not Reportable Differential Comment SCAN Diff Path Review May foll Platelet Estimate ADEQUATE Polychromasia 1+ Hypochromasia 1+ Anisocytosis 2+ Microcytosis 1+ Tear Drop Cells RARE Ovalocytes RARE Schistocytes RARE Sodium 128 L Potassium 3.6 Chloride 101 Carbon Dioxide 22.0 Anion Gap 5 BUN 15 Creatinine 1.19 H Estim Creat Clear Calc 38.47 Est GFR (MDRD) Af Amer 58 L Est GFR (MDRD) Non-Af 48 L BUN/Creatinine Ratio 12.6 Glucose 117 H Calcium 6.8 L Troponin I < 0.015 Crossmatch Medical Necessity - Tobacco Use Smoking Status: Current every day smoker Tobacco Use: Cigarettes Assessment/Plan All Active Problems (Last Updated 06/19/19 @ 12:55 by Carla Sun MD) Closed left hip fracture (Acute) This is a 68 years old female patient presented to the emergency room because of fall and left hip pain, found to have comminuted left intertrochanteric hip fracture and she is being admitted for treatment. #1 acute traumatic comminuted left intertrochanteric hip fracture with displacement: Status post left hip cephalo-medullary nailing, postoperative day 1. She is on IV morphine as well as OxyIR PRN for pain. Pain is fairly manageable at this time. Blood pressure still borderline, afebrile, heart rate stable. She developed acute on chronic anemia and EKG changes after surgery, plan as below. Orthopedic surgery is Managing. #2 Acute on chronic anemia: Probably due to blood loss during surgery and hemodilution. Baseline hemoglobin has been around 10 to 11 g/dL. Today's hemoglobin came down to 5.5 g/dL. This is probably why she has those new EKG changes. Plan: Transfuse 2 units of packed RBCs today, repeat H&H 1 hour after completing blood transfusion, repeat CBC tomorrow morning. #3 new EKG changes: After she has yesterday, she developed significant T wave inversion in leads V2 to V6. This is new. Patient denies any chest pain or shortness of breath since yesterday. Troponin was negative x3. She did have abnormal stress test back on May, and according to cardiology, medical treatment was the recommendation. Repeat EKG from today again revealed T wave inversion in leads V2, V3, V5 and V6 but slightly less prominent than yesterday, no acute ST elevation. Acute anemia is likely the precipitating factor for those new EKG changes. Patient is already on aspirin, statins, lisinopril and metoprolol. Plan for blood transfusion as above, repeat EKG tomorrow morning. #3 history of wide complex tachycardia/V. tach/history of abnormal stress test: Status post insertion of implantable loop recorder. She developed new EKG changes as above. Potassium replaced and corrected. Serum magnesium is normal. Troponin negative x4. Plan as above. #5 hyponatremia/hypokalemia: Has chronic hyponatremia which is probably due to HCTZ. Potassium replaced and corrected, serum magnesium is normal. Serum sodium improved, it is up to 128 today. Plan to repeat BMP tomorrow morning. #6 history of stroke: With minimal left-sided hemiparesis, patient is ambulatory at home but with restrictions. Continue aspirin and statins, will hold Plavix for now. #7 hypertension: Blood pressure is borderline, continue lisinopril and metoprolol, HCTZ held. #8 COPD: Clinically stable, Continue albuterol as needed, continue Advair twice daily. #9 microscopic colitis: Patient mentioned that this was the diagnosis mentioned by Dr. Casillas and she was started on Imuran. Stable, patient has been having intermittent diarrhea chronically. Continue Imuran. #10 tobacco abuse: Nicotine patch if requested. #11 DVT prophylaxis: SCDs. I will stop subcu Lovenox because of worsening anemia. This note was generated with [email or web address] dictation software. It may contain incorrect words, spelling, and punctuation that were not noted in checking the note before signing. Code Visit Inpatient E&M: 84105 Subs Hosp L3
[2018-08-23] MEDS: Acetaminophen 325 MG Tablet 650 MG PO ×2 (08:57→16:52)
[2018-08-23] MEDS: oxyCODONE 5 MG Tablet PO ×2 (08:57→16:51)
[2018-08-23 09:47] LABS: Pathologist Review Reviewed
[2018-08-23 09:50] LABS: International Normalized Ratio 1.1
--- NOTE | 2018-08-23 10:39 | CASEMGMT ---
SW spoke w/pt in regard to discharge plan. Pt is agreeable to going somewhere for rehab. Pt would like to stay here, either in rehab or TCU. Pt was in rehab here after a stroke in 2018. YAJAIRA explained will call to see about bed availability initially in rehab, and to see if it's realistic that insurance would authorize rehab. SW explained will also check w/TCU. SW educated pt on the two units and the differences between them. Pt agreeable to either unit, but does prefer to stay here if possible. PT/OT pending as pt is getting a blood transfusion. YAJAIRA called [facility] in rehab, she states that they have no bed availability until next week, and it is uncertain that pt's insurance would authorize pt for rehab after a hip fracture. YAJAIRA called [facility] in TCU, she states they have beds and will start precert once PT/OT completed. YAJAIRA explained to pt that there are no beds in rehab, but TCU has beds and they can take her, will work on getting authorization from insurance. SW explained to pt that she will likely be here through the weekend as pt cannot participate in therapy yet(getting blood), so may not be able to submit information to insurance in time to get the precert today. Pt states understanding. SW will continue to follow, plan is for TCU, pending precert. POLI Castro
[2018-08-23 15:33] LABS: Hematocrit 25.2 % (37-47); Hemoglobin 8.6 g/dl (12.0-15.0)
--- NOTE | 2018-08-23 17:32 | PCM.PN.ORT ---
Patient Problems: Active and Suspected Problems (Last Updated 08/21/18 @ 12:55 by Carla Sun MD) Closed left hip fracture (Acute) Subjective: Patient is sitting up in her bed during exam and is eating without any signs of distress or discomfort. She is pleasant in our conversation. She states that she has some mild pains but overall is doing a lot better today. She continues to deny pains in other joints. She denies any numbness or tingling in the leg. She states that she can move her knee today some at the same time still has some pains in the hip when she does. - Physical Exam General: Alert, Oriented x3, Cooperative, No apparent distress, Well developed, Well nourished Extremities: No cyanosis, No edema, No Calf Tenderness, Peripheral Pulses Normal Skin: No rashes, Incision - normal skin coloration of the leg. occlussive dressing covering the incision sites. Minor tenderness on palpation of the incision sites (more distal two where locking screws were placed). No erythema noted around the banadage edges) Musculoskeletal: Tenderness - mild tenderness still noted on the anterior hip region, - - patient is able to flex the knee today but minimally stating that it still hurts to do that. She has active ROM of the ankle and toes (toes have some extension contracture and decreased motion that she states is how they have been since her stroke). Again though she is able to move the ankle and wiggle toes. Neurological: Sensory exam intact to light touch and pain - patient has normal light touch sensation throughout the leg all the way into the toes Psych/Mental Status: Normal Affect, Appropriate Vital Signs Temp Pulse Resp BP Pulse Ox 99.5 F H 95 16 99/50 L 97 08/23/18 15:28 08/23/18 15:28 08/23/18 15:28 08/23/18 15:28 08/23/18 15:28 Oxygen Flow Rate (L/min) 2 Oxygen Delivery Method Room Air Weight: 132 lb 11.492 oz Body Mass Index (BMI) 23.5 Finger Stick Blood Glucose 90 Intake and Output for Last 24 Hours 08/21/18 08/22/18 08/23/18 23:59 23:59 23:59 Intake Total 1532 / 1532 2033 / 2569 2890 / 2890 Output Total 525 / 525 620 / 870 425 / 425 Balance 5432 / 2736 5629 / 1699 2465 / 2465 Laboratory Tests Past 24 Hrs 08/21/18 08/22/18 08/22/18 10:34 05:29 19:55 WBC RBC Hgb Hct MCV MCH MCHC RDW RDW Differential Plt Count MPV Immature Gran % (Auto) Neut % (Auto) Lymph % (Auto) [place] % (Auto) Eos % (Auto) Baso % (Auto) Absolute Neuts (auto) Absolute Lymphs (auto) Total Counted Differential Comment Diff Path Review Reviewed Platelet Estimate Polychromasia Hypochromasia Anisocytosis Microcytosis Tear Drop Cells Ovalocytes Schistocytes PT INR Sodium Potassium Chloride Carbon Dioxide Anion Gap BUN Creatinine Estim Creat Clear Calc Est GFR (MDRD) Af Amer Est GFR (MDRD) Non-Af BUN/Creatinine Ratio Glucose Calcium Troponin I < 0.015 Crossmatch See Detail 08/23/18 08/23/18 08/23/18 00:18 05:57 05:57 WBC 2.2 L RBC 1.71 L Hgb 5.5 L* Hct 16.2 L MCV 94.7 MCH 32.2 H MCHC 34.0 RDW 22.6 H RDW Differential 71.6 H Plt Count 253 MPV 8.3 Immature Gran % (Auto) 0.000 Neut % (Auto) 73.0 H Lymph % (Auto) 14.4 L [place] % (Auto) 11.7 H Eos % (Auto) 0.9 Baso % (Auto) 0.0 Absolute Neuts (auto) 1.6 L Absolute Lymphs (auto) 0.32 L Total Counted Not Reportable Differential Comment SCAN Diff Path Review May foll Platelet Estimate ADEQUATE Polychromasia 1+ Hypochromasia 1+ Anisocytosis 2+ Microcytosis 1+ Tear Drop Cells RARE Ovalocytes RARE Schistocytes RARE PT INR Sodium 128 L Potassium 3.6 Chloride 101 Carbon Dioxide 22.0 Anion Gap 5 BUN 15 Creatinine 1.19 H Estim Creat Clear Calc 38.47 Est GFR (MDRD) Af Amer 58 L Est GFR (MDRD) Non-Af 48 L BUN/Creatinine Ratio 12.6 Glucose 117 H Calcium 6.8 L Troponin I < 0.015 Crossmatch 08/23/18 08/23/18 09:23 15:15 WBC RBC Hgb 8.6 L Hct 25.2 L MCV MCH MCHC RDW RDW Differential Plt Count MPV Immature Gran % (Auto) Neut % (Auto) Lymph % (Auto) [place] % (Auto) Eos % (Auto) Baso % (Auto) Absolute Neuts (auto) Absolute Lymphs (auto) Total Counted Differential Comment Diff Path Review Platelet Estimate Polychromasia Hypochromasia Anisocytosis Microcytosis Tear Drop Cells Ovalocytes Schistocytes PT 14.0 INR 1.1 Sodium Potassium Chloride Carbon Dioxide Anion Gap BUN Creatinine Estim Creat Clear Calc Est GFR (MDRD) Af Amer Est GFR (MDRD) Non-Af BUN/Creatinine Ratio Glucose Calcium Troponin I Crossmatch Medical Necessity - Tobacco Use Smoking Status: Current every day smoker Tobacco Use: Cigarettes Assessment/Plan All Active Problems (Last Updated 08/21/18 @ 12:55 by Carla Sun MD) Closed left hip fracture (Acute) Day 1 post op TFN nail for intertrochanter fracture. Patient shows good improvement in her pains showing no signs of distress or discomfort She has no calf pains and negative homans She has normal light touch sensation in the extremity She does have movements of the knee, ankle, and toes. Continue current treatment plan with hip precautions Dressing change tomorrow. They are working on whether she is going to transfer to TCU or a different facility. I do feel that with her dizziness and thus being a falls risk that this is an important step allowing her to build strength before being at home.
[2018-08-23] MEDS: azaTHIOprine 50 MG Tablet PO (20:16)
[2018-08-23] MEDS: Atorvastatin Calcium 80 MG Tablet PO (20:16)
[2018-08-23] MEDS: Citalopram 20 MG Tablet PO (20:17)
[2018-08-23] MEDS: Lisinopril 40 MG Tablet PO (20:17)
[2018-08-24] VITALS (20 sets, daily range): BP systolic 101–138; BP diastolic 55–74; PULSE 83–105; RESP 15–22; TEMP 36.7–37.3; O2SAT 91–98
[2018-08-24] MEDS: 0.9% Normal Saline 1,000 ML 75 ML IV (00:10)
[2018-08-24] MEDS: Albuterol 2.5 MG/3 ML VIAL.NEB. INHALATION ×4 (01:20→16:22)
[2018-08-24] MEDS: oxyCODONE 5 MG Tablet PO ×4 (01:45→21:49)
[2018-08-24] MEDS: Budesonide Respules 0.5 MG/2 ML AMPUL.NEB. INHALATION ×2 (06:39→19:12)
[2018-08-24 07:30] LABS: Absolute Lymphocyte Count 0.44 X10^3/ul (0.83-4.51); Absolute Neutrophil Count 2.8 X10^3/uL (2.0-7.7); Basophil# 0.01 X10^3/uL; Basophil% 0.3 % (0-1); Differential Indicated SCAN CRITERIA MET; Eosinophil# 0.07 X10^3/uL; Eosinophils% 1.9 % (0-5); Hematocrit 27.5 % (37-47); Hemoglobin 9.4 g/dl (12.0-15.0); Lymphocyte # 0.44 X10^3/ul (4.0); Lymphocyte % 11.9 % (19-41); Mean Corp Hgb Conc 34.2 g/gl (32-36); Mean Corpuscular Hgb 30.4 pg (27.0-32.0); Mean Platelet Vol. 8.8 fl (6.2-12.0); Monocyte# 0.41 X10^3/uL; Monocyte% 11.1 % (0-10); Neutrophil # 2.75 X10^3/uL (2.7-7.7); Neutrophil % 74.5 % (47-70); POSITIVE COUNT NO; POSITIVE DIFFERENTIAL YES; POSITIVE MORPHOLOGY YES; Platelet Count 247 K/mm3 (150-450); RBC Distribution Width CV 20.1 % (11.6-14.6); RBC Distribution Width SD 61.9 fl (35.1-43.9); Red Blood Count 3.09 M/mm3 (4.2-5.4); White Blood Count 3.7 K/mm3 (4.4-11.0)
[2018-08-24 07:43] LABS: Anion Gap 7 (5-15); BUN 14 mg/dL (7-18); BUN/Creat Ratio 12.8 RATIO (10-20); Calcium,Total 6.9 mg/dL (8.5-10.1); Chloride 102 mmol/L (98-107); Creatinine, Serum 1.09 mg/dL (0.55-1.02); EST Glomerular Filtration Rate 53 mL/min (>60); Est Glom Filt Rate - Afr Amer 65 mL/min (>60); Glucose 109 mg/dL (74-106); Potassium 3.6 mmol/L (3.5-5.1); Sodium Level 128 mmol/L (136-145)
[2018-08-24 08:09] LABS: Acanthocytes 1+; Anisocytosis 1+; Hypochromasia 1+; Schistocytes 1+
[2018-08-24] MEDS: Metoprolol(XL)Succ 50 MG Tablet PO (09:26)
[2018-08-24] MEDS: Aspirin 81 MG TAB.CHEW PO (09:26)
[2018-08-24] MEDS: Lisinopril 40 MG Tablet PO ×2 (09:26→21:45)
--- NOTE | 2018-08-24 11:34 | PN_ITS ---
Patient Problems: Active and Suspected Problems (Last Updated 08/21/18 @ 12:55 by Carla Sun MD) Closed left hip fracture (Acute) Subjective: Chief complaint: Follow-up after admission for acute traumatic comminuted left intertrochanteric hip fracture with displacement. Postoperatively, she developed acute on chronic anemia and EKG changes. Patient seen and examined. No acute events overnight. Nursing staff reported that patient has been very painful upon ambulation. At rest, she has no significant pain and it is well controlled. Pain is bad upon movement, could not stand up. She denied chest pain or shortness of breath. Her vital signs are stable. Blood pressure improved. - Physical Exam General: Alert, Oriented x3, Cooperative, No apparent distress HEENT: Atraumatic, PERRLA, EOMI, Normocephalic Oral: Moist Mucosa, No Gingival or Mucosal Lesions/ Ulcerations Neck: Supple, No JVD, Negative Carotid Bruits, Trachea Midline, Thyroid Normal Size and Texture Lungs: No rhonchi, No rales, Diminished, Wheezes, - - Diminished breath sounds bilateral, bilateral occasional wheezes. Cardiovascular: Regular rate, Regular Rhythm, Normal S1, Normal S2, PMI Normal Abdomen: Bowel Sounds Present, Soft, Non Tender, Non-Distended, No Hepato- splenomegaly Extremities: No clubbing, No cyanosis, No edema Skin: No rashes, No breakdown Lymphatic: No Cervical, Supraclavicular, or Inguinal Adenopathy Neurological: Cranial nerves II-XII grossly intact, Neuro grossly intact Psych/Mental Status: Normal Affect, Appropriate Vital Signs Temp Pulse Resp BP Pulse Ox 99.1 F 90 20 H 133/74 H 97 08/24/18 09:45 08/24/18 10:00 08/24/18 09:45 08/24/18 09:45 08/24/18 09:45 Oxygen Flow Rate (L/min) 2 Oxygen Delivery Method Room Air Weight: 132 lb 11.492 oz Body Mass Index (BMI) 23.5 Finger Stick Blood Glucose 90 Intake and Output for Last 24 Hours 08/22/18 08/23/18 08/24/18 23:59 23:59 23:59 Intake Total 2033 / 2569 3984 / 4729 1415 / 1415 Output Total 620 / 870 675 / 1025 700 / 700 Balance 1413 / 1699 3309 / 3704 715 / 715 Laboratory Tests Past 24 Hrs 08/21/18 08/23/18 08/24/18 10:34 15:15 07:00 WBC 3.7 L RBC 3.09 L Hgb 8.6 L 9.4 L Hct 25.2 L 27.5 L MCV 89.0 MCH 30.4 MCHC 34.2 RDW 20.1 H RDW Differential 61.9 H Plt Count 247 MPV 8.8 Immature Gran % (Auto) 0.300 Neut % (Auto) 74.5 H Lymph % (Auto) 11.9 L [place] % (Auto) 11.1 H Eos % (Auto) 1.9 Baso % (Auto) 0.3 Absolute Neuts (auto) 2.8 Absolute Lymphs (auto) 0.44 L Total Counted Not Reportable Hypochromasia 1+ Anisocytosis 1+ Acanthocytes ([place]) 1+ Schistocytes 1+ Sodium Potassium Chloride Carbon Dioxide Anion Gap BUN Creatinine Estim Creat Clear Calc Est GFR (MDRD) Af Amer Est GFR (MDRD) Non-Af BUN/Creatinine Ratio Glucose Calcium Crossmatch See Detail 08/24/18 07:00 WBC RBC Hgb Hct MCV MCH MCHC RDW RDW Differential Plt Count MPV Immature Gran % (Auto) Neut % (Auto) Lymph % (Auto) [place] % (Auto) Eos % (Auto) Baso % (Auto) Absolute Neuts (auto) Absolute Lymphs (auto) Total Counted Hypochromasia Anisocytosis Acanthocytes ([place]) Schistocytes Sodium 128 L Potassium 3.6 Chloride 102 Carbon Dioxide 19.0 L Anion Gap 7 BUN 14 Creatinine 1.09 H Estim Creat Clear Calc 42.00 Est GFR (MDRD) Af Amer 65 Est GFR (MDRD) Non-Af 53 L BUN/Creatinine Ratio 12.8 Glucose 109 H Calcium 6.9 L Crossmatch Medical Necessity - Tobacco Use Smoking Status: Current every day smoker Tobacco Use: Cigarettes Assessment/Plan All Active Problems (Last Updated 08/21/18 @ 12:55 by Carla Sun MD) Closed left hip fracture (Acute) This is a 68 years old female patient presented to the emergency room because of fall and left hip pain, found to have comminuted left intertrochanteric hip fracture and she is being admitted for treatment. Postoperatively, she developed acute on chronic anemia requiring blood transfusion, new EKG changes and hypotension. #1 acute traumatic comminuted left intertrochanteric hip fracture with displacement: Status post left hip cephalo-medullary nailing, postoperative day 2. She is on IV morphine as well as OxyIR PRN for pain. She is still very painful upon any movement. Her vital signs are stable. Orthopedic surgery is managing. #2 Acute on chronic anemia: Probably due to blood loss during surgery and hemodilution. Baseline hemoglobin has been around 10 to 11 g/dL. It came down to 5.5 g/dL. She received 2 units of packed RBCs, today's hemoglobin is 9.4 g/dL. Improved. Plan to monitor, repeat H&H tomorrow morning. #3 new EKG changes: Attributed to anemia. Patient remained without chest pain. Troponin was negative x3. Repeat EKG revealed improvement in the T wave inversion in lateral chest leads. She did have abnormal stress test back on May, and according to cardiology, medical treatment was the recommendation.Case discussed with cardiology about the new findings, plan to follow-up with cardiology as outpatient. She is on aspirin, statins, metoprolol and lisinopril, will resume Plavix. #3 history of wide complex tachycardia/V. tach/history of abnormal stress test: Status post insertion of implantable loop recorder. She developed new EKG changes as above. Potassium replaced and corrected. Serum magnesium is normal. Troponin negative x4. Plan as above. #5 hyponatremia/hypokalemia: Has chronic hyponatremia which is probably due to HCTZ. Potassium replaced and corrected, serum magnesium is normal. #6 history of stroke: With minimal left-sided hemiparesis, patient is ambulatory at home but with restrictions. Continue aspirin and statins, resume Plavix. #7 hypertension: Blood pressure stable today, continue lisinopril and metoprolol, HCTZ held. #8 COPD: Clinically stable, Continue albuterol as needed, continue Advair twice daily. #9 microscopic colitis: Continue Imuran. #10 tobacco abuse: Nicotine patch if requested. #11 DVT prophylaxis: SCDs. Restart subcu Lovenox. This note was generated with [employer] dictation software. It may contain incorrect words, spelling, and punctuation that were not noted in checking the note before signing. Code Visit Inpatient E&M: 13979 Subs Hosp L2
[2018-08-24] MEDS: Acetaminophen 325 MG Tablet 650 MG PO ×2 (13:04→21:49)
[2018-08-24] MEDS: Furosemide 20 MG/2 ML VIAL IV (16:23)
--- NOTE | 2018-08-24 18:11 | PCM.PN.ORT ---
Patient Problems: Active and Suspected Problems (Last Updated 08/21/18 @ 12:55 by Carla Sun MD) Closed left hip fracture (Acute) Subjective: Patient states she was up and out of bed to chair much better pain control today has not had a bowel movement is a little bit short of breath and has to pee currently. Is getting Lasix for her shortness of breath after her units of blood this is most likely secondary from. Denies other fevers chills constitutional symptoms no calf pain knee pain and occasional hip pain with ambulation - Physical Exam General: Alert, Oriented x3, Cooperative HEENT: Atraumatic, PERRLA, EOMI, Normocephalic Neck: Supple, No JVD, Negative Carotid Bruits Lungs: Clear to auscultation, Normal air movement Cardiovascular: Regular rate, No murmurs Abdomen: Bowel Sounds Present, Soft, Non Tender Extremities: No edema, Capillary Refill Less than 3 Seconds Skin: No rashes, No breakdown Musculoskeletal: Tenderness - Active range of motion ankle intact, no calf pain, negative Homans, less than 2 seconds cap refill compartment soft sensation grossly intact, incision clean dry and intact Neurological: Cranial nerves II-XII grossly intact Psych/Mental Status: Normal Affect, Appropriate Vital Signs Temp Pulse Resp BP Pulse Ox 98.8 F 83 18 124/73 H 98 08/24/18 15:31 08/24/18 16:22 08/24/18 16:22 08/24/18 15:31 08/24/18 15:31 Oxygen Flow Rate (L/min) 2 Oxygen Delivery Method Room Air Weight: 132 lb 11.492 oz Body Mass Index (BMI) 23.5 Finger Stick Blood Glucose 90 Intake and Output for Last 24 Hours 08/22/18 08/23/18 08/24/18 23:59 23:59 23:59 Intake Total 2033 / 2569 3984 / 4729 1868 / 1868 Output Total 620 / 870 675 / 1025 1020 / 1020 Balance 1413 / 1699 3309 / 3704 848 / 848 Laboratory Tests Past 24 Hrs 08/24/18 08/24/18 07:00 07:00 WBC 3.7 L RBC 3.09 L Hgb 9.4 L Hct 27.5 L MCV 89.0 MCH 30.4 MCHC 34.2 RDW 20.1 H RDW Differential 61.9 H Plt Count 247 MPV 8.8 Immature Gran % (Auto) 0.300 Neut % (Auto) 74.5 H Lymph % (Auto) 11.9 L [place] % (Auto) 11.1 H Eos % (Auto) 1.9 Baso % (Auto) 0.3 Absolute Neuts (auto) 2.8 Absolute Lymphs (auto) 0.44 L Total Counted Not Reportable Hypochromasia 1+ Anisocytosis 1+ Acanthocytes (Spur) 1+ Schistocytes 1+ Sodium 128 L Potassium 3.6 Chloride 102 Carbon Dioxide 19.0 L Anion Gap 7 BUN 14 Creatinine 1.09 H Estim Creat Clear Calc 42.00 Est GFR (MDRD) Af Amer 65 Est GFR (MDRD) Non-Af 53 L BUN/Creatinine Ratio 12.8 Glucose 109 H Calcium 6.9 L Medical Necessity - Tobacco Use Smoking Status: Current every day smoker Tobacco Use: Cigarettes Assessment/Plan All Active Problems (Last Updated 08/21/18 @ 12:55 by Carla Sun MD) Closed left hip fracture (Acute) Postop day 2 status post left hip intramedullary nailing Ancef complete next PT up out of bed today with to chair improving daily next Dispel planning Anemia better can up to 9 today after units of blood This note was generated with [employer] software. It may contain incorrect words, spelling, and punctuation that were not noted in checking the note before signing.
[2018-08-24] MEDS: Ipratropium/Albuterol Sulfate 3 ML AMPUL.NEB INHALATION ×2 (19:11→22:49)
[2018-08-24] MEDS: Atorvastatin Calcium 80 MG Tablet PO (21:45)
[2018-08-24] MEDS: Senna/Docusate Sodium 1 Tablet 2 TABLET PO (21:45)
[2018-08-24] MEDS: azaTHIOprine 50 MG Tablet PO (21:45)
[2018-08-24] MEDS: Citalopram 20 MG Tablet PO (21:46)
[2018-08-24] MEDS: Zolpidem Tartrate 5 MG Tablet PO (21:48)
[2018-08-25] VITALS (19 sets, daily range): BP systolic 117–141; BP diastolic 63–78; PULSE 72–95; RESP 16–24; TEMP 36.7–37.1; O2SAT 96–99
[2018-08-25] MEDS: Ipratropium/Albuterol Sulfate 3 ML AMPUL.NEB INHALATION ×6 (02:27→22:24)
[2018-08-25] MEDS: Enoxaparin 30 MG/0.3 ML Syringe SC (06:28)
[2018-08-25] MEDS: oxyCODONE 5 MG Tablet PO ×3 (06:36→20:14)
[2018-08-25] MEDS: Acetaminophen 325 MG Tablet 650 MG PO ×3 (06:36→20:13)
[2018-08-25] MEDS: Budesonide Respules 0.5 MG/2 ML AMPUL.NEB. INHALATION ×2 (06:48→18:32)
[2018-08-25 07:47] LABS: Hematocrit 23.5 % (37-47); Hemoglobin 8.2 g/dl (12.0-15.0)
--- NOTE | 2018-08-25 09:14 | PN_ITS ---
Patient Problems: Active and Suspected Problems (Last Updated 08/21/18 @ 12:55 by Carla Sun MD) Closed left hip fracture (Acute) Subjective: Chief complaint: Follow-up after admission for acute traumatic comminuted left intertrochanteric hip fracture with displacement. Postoperatively, she developed acute on chronic anemia and EKG changes. Patient seen and examined. No acute events overnight. Left hip pain much better, patient started ambulation. She went out of bed to chair yesterday. Pain is under control. Denies any other complaints. Her vital signs are stable. - Physical Exam General: Alert, Oriented x3, Cooperative, No apparent distress HEENT: Atraumatic, PERRLA, EOMI, Normocephalic Oral: Moist Mucosa, No Gingival or Mucosal Lesions/ Ulcerations Neck: Supple, No JVD, Negative Carotid Bruits, Trachea Midline, Thyroid Normal Size and Texture Lungs: Clear to auscultation, Normal air movement, No rales, Diminished, Wheezes - Minimal wheezing. Cardiovascular: Regular rate, Regular Rhythm, Normal S1, Normal S2, PMI Normal Abdomen: Bowel Sounds Present, Soft, Non Tender, Non-Distended, No Hepato- splenomegaly Extremities: No clubbing, No cyanosis, No edema Skin: No rashes, No breakdown Lymphatic: No Cervical, Supraclavicular, or Inguinal Adenopathy Neurological: Cranial nerves II-XII grossly intact, Neuro grossly intact Psych/Mental Status: Normal Affect, Appropriate, Alert and oriented to time, place, person, mood and affect Vital Signs Temp Pulse Resp BP Pulse Ox 98.7 F 89 18 123/74 H 98 08/25/18 03:30 08/25/18 07:02 08/25/18 06:48 08/25/18 03:30 08/25/18 06:48 Oxygen Flow Rate (L/min) 2 Oxygen Delivery Method Room Air Weight: 132 lb 11.492 oz Body Mass Index (BMI) 23.5 Finger Stick Blood Glucose 90 Intake and Output for Last 24 Hours 08/23/18 08/24/18 08/25/18 23:59 23:59 23:59 Intake Total 3984 / 4729 1868 / 1868 Output Total 675 / 1025 1345 / 1345 600 / 600 Balance 3309 / 3704 523 / 523 -600 / -600 Laboratory Tests Past 24 Hrs 08/25/18 06:38 Hgb 8.2 L Hct 23.5 L Medical Necessity - Tobacco Use Smoking Status: Current every day smoker Tobacco Use: Cigarettes Assessment/Plan All Active Problems (Last Updated 08/21/18 @ 12:55 by Carla Sun MD) Closed left hip fracture (Acute) This is a 68 years old female patient presented to the emergency room because of fall and left hip pain, found to have comminuted left intertrochanteric hip fracture and she is being admitted for treatment. Postoperatively, she developed acute on chronic anemia requiring blood transfusion, new EKG changes and hypotension. #1 acute traumatic comminuted left intertrochanteric hip fracture with displacement: Status post left hip cephalo-medullary nailing, postoperative day 2. Patient started ambulation, pain is much improved. She is on IV morphine as well as OxyIR PRN for pain. Her vital signs are stable. Orthopedic surgery is managing. Awaiting insurance approval for placement to retirement facility. #2 Acute on chronic anemia: Probably due to blood loss during surgery and hemodilution. Baseline hemoglobin has been around 10 to 11 g/dL. It came down to 5.5 g/dL. She received 2 units of packed RBCs, today's hemoglobin is 8.2 g/dL, it was 9.4 yesterday. No evidence of active bleeding. Plan to monitor, repeat CBC tomorrow morning. No transfusion today. #3 new EKG changes: Attributed to anemia. Patient remained without chest pain. Troponin was negative x3. Repeat EKG revealed improvement in the T wave inversion in lateral chest leads. She did have abnormal stress test back on May, and according to cardiology, medical treatment was the recommendation.Case discussed with cardiology about the new findings, plan to follow-up with cardiology as outpatient. She is on aspirin, Plavix, statins, metoprolol and lisinopril. #3 history of wide complex tachycardia/V. tach/history of abnormal stress test: Status post insertion of implantable loop recorder. She developed new EKG changes as above. Potassium replaced and corrected. Serum magnesium is normal. Troponin negative x4. Plan as above. #5 hyponatremia/hypokalemia: Has chronic hyponatremia which is probably due to HCTZ. Today's sodium is 128, at baseline. Potassium replaced and corrected, serum magnesium is normal. #6 history of stroke: With minimal left-sided hemiparesis, patient is ambulatory at home but with restrictions. Continue aspirin and statins and Plavix. #7 hypertension: Blood pressure stable , continue lisinopril and metoprolol, HCTZ held. #8 COPD: Clinically stable, Continue albuterol as needed, continue Advair twice daily. #9 microscopic colitis: Continue Imuran. #10 tobacco abuse: Nicotine patch if requested. #11 DVT prophylaxis: Subcu Lovenox. This note was generated with [employer] dictation software. It may contain incorrect words, spelling, and punctuation that were not noted in checking the note before signing. Code Visit Inpatient E&M: 74928 Subs Hosp L2
[2018-08-25] MEDS: Aspirin 81 MG TAB.CHEW PO (09:31)
[2018-08-25] MEDS: Clopidogrel Bisulfate 75 MG Tablet PO (09:31)
[2018-08-25] MEDS: Metoprolol(XL)Succ 50 MG Tablet PO (09:32)
[2018-08-25] MEDS: Lisinopril 40 MG Tablet PO ×2 (09:33→20:13)
[2018-08-25] MEDS: azaTHIOprine 50 MG Tablet PO (20:10)
[2018-08-25] MEDS: Citalopram 20 MG Tablet PO (20:10)
[2018-08-25] MEDS: Atorvastatin Calcium 80 MG Tablet PO (20:11)
[2018-08-25] MEDS: Zolpidem Tartrate 5 MG Tablet PO (20:13)
[2018-08-26] VITALS (15 sets, daily range): BP systolic 122–136; BP diastolic 58–80; PULSE 78–95; RESP 16–24; TEMP 36.7–37.3; O2SAT 93–99
[2018-08-26] MEDS: Loperamide 2 MG Capsule PO (01:58)
[2018-08-26] MEDS: Ipratropium/Albuterol Sulfate 3 ML AMPUL.NEB INHALATION ×5 (02:32→23:45)
[2018-08-26] MEDS: Enoxaparin 30 MG/0.3 ML Syringe SC (05:46)
[2018-08-26] MEDS: oxyCODONE 5 MG Tablet PO ×2 (05:47→15:42)
[2018-08-26] MEDS: Acetaminophen 325 MG Tablet 650 MG PO ×3 (05:47→21:54)
[2018-08-26 06:40] LABS: Anion Gap 10 (5-15); BUN 17 mg/dL (7-18); BUN/Creat Ratio 18.6 RATIO (10-20); Calcium,Total 7.9 mg/dL (8.5-10.1); Chloride 103 mmol/L (98-107); Creatinine, Serum 0.92 mg/dL (0.55-1.02); EST Glomerular Filtration Rate 65 mL/min (>60); Est Glom Filt Rate - Afr Amer 79 mL/min (>60); Estimated Creatinine Clearance 49.76 ml/min; Glucose 98 mg/dL (74-106); Potassium 3.7 mmol/L (3.5-5.1); Sodium Level 134 mmol/L (136-145)
[2018-08-26 06:57] LABS: Absolute Lymphocyte Count 0.48 X10^3/ul (0.83-4.51); Absolute Neutrophil Count 2.6 X10^3/uL (2.0-7.7); Basophil# 0.02 X10^3/uL; Basophil% 0.5 % (0-1); Eosinophil# 0.17 X10^3/uL; Eosinophils% 4.6 % (0-5); Hematocrit 22.2 % (37-47); Hemoglobin 7.7 g/dl (12.0-15.0); Lymphocyte # 0.48 X10^3/ul (4.0); Mean Corp Hgb Conc 34.7 g/gl (32-36); Mean Corpuscular Hgb 31.3 pg (27.0-32.0); Mean Corpuscular Volume 90.2 fL (81-99); Mean Platelet Vol. 8.7 fl (6.2-12.0); Monocyte# 0.44 X10^3/uL; Monocyte% 11.9 % (0-10); Neutrophil # 2.58 X10^3/uL (2.7-7.7); Neutrophil % 69.7 % (47-70); Platelet Count 289 K/mm3 (150-450); RBC Distribution Width CV 20.9 % (11.6-14.6); RBC Distribution Width SD 67.2 fl (35.1-43.9); Red Blood Count 2.46 M/mm3 (4.2-5.4); White Blood Count 3.7 K/mm3 (4.4-11.0)
[2018-08-26 07:01] LABS: Differential Indicated SCAN CRITERIA MET; POSITIVE COUNT NO; POSITIVE DIFFERENTIAL YES; POSITIVE MORPHOLOGY NO
[2018-08-26 07:16] LABS: Differential Comment SCANNED; Macrocytosis 2+; Microcytosis 2+; Ovalocyte 1+; Platelet Estimate ADEQUATE (ADEQ)
[2018-08-26] MEDS: Aspirin 81 MG TAB.CHEW PO (08:06)
--- NOTE | 2018-08-26 09:16 | CASEMGMT ---
Addendum entered by Rossy Hill 08/26/18 15:40: SW updated pt that pre-cert was submitted this morning and once this worker receives authorization she is able to discharge to TCU if insurance approves. Pt states understanding. Original Note: Social Work Note PT/OT notes are available. YAJAIRA placed a call to Zara with TCU/[facility], informed Zara to submit for pre-cert. Zara states she will submit for pre-cert. Plan: TCU pending pre-cert Rossy Hill SWEATBAND DRUMMER, ENVELOPE ADJUSTER
[2018-08-26] MEDS: Senna/Docusate Sodium 1 Tablet 2 TABLET PO ×2 (10:16→10:19)
[2018-08-26] MEDS: Metoprolol(XL)Succ 50 MG Tablet PO (10:16)
[2018-08-26] MEDS: Lisinopril 40 MG Tablet PO ×2 (10:16→21:52)
[2018-08-26] MEDS: Clopidogrel Bisulfate 75 MG Tablet PO (10:17)
[2018-08-26 10:31] LABS: Hematocrit 25.2 % (37-47); Hemoglobin 8.6 g/dl (12.0-15.0)
[2018-08-26] MEDS: Budesonide Respules 0.5 MG/2 ML AMPUL.NEB. INHALATION ×2 (10:50→19:20)
[2018-08-26 14:18] LABS: Pathologist Review Reviewed
[2018-08-26 14:35] LABS: Pathologist Review Reviewed
--- NOTE | 2018-08-26 14:36 | PN_ITS ---
Patient Problems: Active and Suspected Problems (Last Updated 08/21/18 @ 12:55 by Carla Sun MD) Closed left hip fracture (Acute) Subjective: Patient was seen and examined. Her pain is controlled. She feels better. She is been having loose stools. Diarrheas however have improved with stool softeners being held. She denied any chest pain no dizziness or palpitation. Vitals/I&O's: Vital Signs Temp Pulse Resp BP Pulse Ox 98.6 F 81 18 122/68 H 97 08/26/18 07:31 08/26/18 10:51 08/26/18 10:51 08/26/18 07:31 08/26/18 10:51 Oxygen Flow Rate (L/min) 2 Oxygen Delivery Method Room Air Weight: 60.2 kg Body Mass Index (BMI) 23.5 Finger Stick Blood Glucose 90 Intake and Output for Last 24 Hours 08/24/18 08/25/18 08/26/18 23:59 23:59 23:59 Intake Total 1868 / 1868 725 / 925 250 / 250 Output Total 1345 / 1345 1100 / 1100 Balance 523 / 523 -375 / -175 250 / 250 General: Alert, Oriented x3, Cooperative, No apparent distress HEENT: Atraumatic, PERRLA, EOMI, Normocephalic Oral: Moist Mucosa Neck: Supple Lungs: Clear to auscultation, Normal air movement Cardiovascular: Regular rate, Regular Rhythm, Normal S1, Normal S2, No murmurs Abdomen: Bowel Sounds Present, Soft, Non Tender, Non-Distended, No Hepato- splenomegaly Extremities: No edema, Tenderness - over the left hip Skin: No rashes, No breakdown Musculoskeletal: No Tenderness to Palpation of Joints or Extremities Lymphatic: No Cervical, Supraclavicular, or Inguinal Adenopathy Neurological: Cranial nerves II-XII grossly intact, Neuro grossly intact Psych/Mental Status: Normal Affect, Appropriate Laboratory Results 08/23/18 05:57: Diff Path Review Reviewed 08/26/18 06:10: WBC 3.7 L, RBC 2.46 L, Hgb 7.7 L, Hct 22.2 L, MCV 90.2, MCH 31.3, MCHC 34.7, RDW 20.9 H, RDW Differential 67.2 H, Plt Count 289, MPV 8.7, Immature Gran % (Auto) 0.300, Neut % (Auto) 69.7, Lymph % (Auto) 13.0 L, [place] % (Auto) 11.9 H, Eos % (Auto) 4.6, Baso % (Auto) 0.5, Absolute Neuts (auto) 2.6, Absolute Lymphs (auto) 0.48 L, Total Counted Not Reportable, Differential Comment SCANNED, Diff Path Review Reviewed, Platelet Estimate ADEQUATE, Microcytosis 2+, Macrocytosis 2+, Ovalocytes 1+ 08/26/18 06:10: Sodium 134 L, Potassium 3.7, Chloride 103, Carbon Dioxide 21.0, Anion Gap 10, BUN 17, Creatinine 0.92, Estim Creat Clear Calc 49.76, Est GFR (MDRD) Af Amer 79, Est GFR (MDRD) Non-Af 65, BUN/Creatinine Ratio 18.6, Glucose 98, Calcium 7.9 L 08/26/18 10:15: Hgb 8.6 L, Hct 25.2 L Current Medications Acetaminophen (Tylenol) 650 mg PO Q6H PRN PRN PRN Reason: Mild Pain (1-3)/Temp > 100.7 F Last Admin: 08/26/18 05:47 Dose: 650 mg Documented by: Albuterol Sulfate (Ventolin Aerosols) 2.5 mg INHALATION Q4H PRN PRN PRN Reason: Shortness of Breath/Wheezing Last Admin: 08/24/18 16:22 Dose: 2.5 mg Documented by: Albuterol/Ipratropium (Duoneb) 3 ml INHALATION Q4H.RT [facility] Last Admin: 08/26/18 10:50 Dose: 3 ml Documented by: Aspirin (Aspirin, Baby) 81 mg PO DAILY@0800 [facility] Last Admin: 08/26/18 08:06 Dose: 81 mg Documented by: Atorvastatin Calcium (Lipitor) 80 mg PO HS [facility] Last Admin: 08/25/18 20:11 Dose: 80 mg Documented by: Azathioprine (Imuran) 50 mg PO QHS [facility] Last Admin: 08/25/18 20:10 Dose: 50 mg Documented by: Budesonide (Pulmicort Aerosol) 0.5 mg INHALATION Q12H.RT [facility] Last Admin: 08/26/18 10:50 Dose: 0.5 mg Documented by: Citalopram Hydrobromide (Celexa) 20 mg PO QHS [facility] Last Admin: 08/25/18 20:10 Dose: 20 mg Documented by: Clopidogrel Bisulfate (Plavix) 75 mg PO DAILY [facility] Last Admin: 08/26/18 10:17 Dose: 75 mg Documented by: Enoxaparin Sodium (Lovenox) 30 mg SC DAILY@0600 [facility] Last Admin: 08/26/18 05:46 Dose: 30 mg Documented by: Lisinopril (Zestril) 40 mg PO BID [facility] Last Admin: 08/26/18 10:16 Dose: 40 mg Documented by: Loperamide HCl (Imodium) 2 mg PO PRN PRN PRN Reason: Diarrhea Last Admin: 08/26/18 01:58 Dose: 2 mg Documented by: Magnesium Hydroxide (Milk Of Magnesia) 30 ml PO DAILY PRN PRN PRN Reason: Constipation Metoprolol Succinate (Toprol Xl (Beta Saida)) 50 mg PO DAILY [facility] Last Admin: 08/26/18 10:16 Dose: 50 mg Documented by: Morphine Sulfate () 1 - 2 mg IV Q3H PRN PRN PRN Reason: Severe pain (7-10/10) Last Admin: 08/22/18 23:49 Dose: 2 mg Documented by: Ondansetron HCl (Zofran) 4 mg IV Q8H PRN PRN PRN Reason: NAUSEA/VOMITING Oxycodone HCl (Oxyir) 5 mg PO Q6H PRN PRN PRN Reason: Moderate Pain (4-6/10) Last Admin: 08/26/18 05:47 Dose: 5 mg Documented by: Senna/Docusate Sodium (Senokot-S, Donita-Colace) 2 tablet PO BID [facility] Last Admin: 08/26/18 10:19 Dose: 2 tablet Documented by: Zolpidem Tartrate (Ambien (Generic)) 5 mg PO QHS PRN PRN PRN Reason: INSOMNIA Last Admin: 08/25/18 20:13 Dose: 5 mg Documented by: Medical Necessity - Tobacco Use Smoking Status: Current every day smoker Tobacco Use: Cigarettes Assessment/Plan All Active Problems (Last Updated 08/21/18 @ 12:55 by Carla Sun MD) Closed left hip fracture (Acute) 68-year-old female admitted after a fall and sustained left hip intertrochante gisel fracture, status post repair. Postoperatively patient had new EKG changes. 1. Postop day #3, status post left intertrochanteric hip fracture repair, traumatic, pain is controlled, PT and OT on board, awaiting [facility] 2. Acute on chronic anemia, secondary to probable blood loss during surgery dilution, no active bleeding, stools are said to be brown, will check stool for occult blood, trend HH, repeat CBCD in am. 3. Abnormal EKG, noted postoperatively, troponins x3 is negative, EKG showed persistent T wave inversions, history of abnormal stress test in May 2018, medical management recommended, continue on aspirin, Plavix, statins, metoprolol and lisinopril 4. Hyponatremia, improved, sodium is now 134 from 128, likely secondary to hydrochlorothiazide use, hydrochlorothiazide held, will trend BMP in the a.m. 5. Hypokalemia resolved, repeat BMP in am. 6. Hypertension, controlled, continue on lisinopril, metoprolol, continue to monitor as needed 7. COPD, not in acute exacerbation, clinically stable, continue with PRN breathing treatments, budesonide 8. Micoscopic colitis, on Imuran, budesonide 9. Nicotine dependence, on replacement 10. DVT PPx- Lovenox SC 11. Disposition: Awaiting on precert for discharge to [facility] facility. Code Visit Inpatient E&M: 21869 Subs Hosp L2
[2018-08-26 16:57] LABS: Hematocrit 23.6 % (37-47); Hemoglobin 7.8 g/dl (12.0-15.0)
[2018-08-26] MEDS: Citalopram 20 MG Tablet PO (21:51)
[2018-08-26] MEDS: Atorvastatin Calcium 80 MG Tablet PO (21:51)
[2018-08-26] MEDS: azaTHIOprine 50 MG Tablet PO (21:52)
[2018-08-27] VITALS (9 sets, daily range): BP systolic 135–150; BP diastolic 65–70; PULSE 78–100; RESP 16–19; TEMP 36.6–36.7; O2SAT 91–98
[2018-08-27] MEDS: oxyCODONE 5 MG Tablet PO ×4 (02:53→15:05)
[2018-08-27] MEDS: Ipratropium/Albuterol Sulfate 3 ML AMPUL.NEB INHALATION ×3 (03:45→11:01)
[2018-08-27] MEDS: Enoxaparin 30 MG/0.3 ML Syringe SC (05:22)
[2018-08-27 06:15] LABS: Anion Gap 8 (5-15); BUN 16 mg/dL (7-18); BUN/Creat Ratio 17.2 RATIO (10-20); Chloride 104 mmol/L (98-107); Creatinine, Serum 0.93 mg/dL (0.55-1.02); EST Glomerular Filtration Rate 64 mL/min (>60); Est Glom Filt Rate - Afr Amer 77 mL/min (>60); Estimated Creatinine Clearance 49.22 ml/min; Glucose 96 mg/dL (74-106); Potassium 3.9 mmol/L (3.5-5.1); Sodium Level 134 mmol/L (136-145)
[2018-08-27 06:16] LABS: Absolute Neutrophil Count 2.4 X10^3/uL (2.0-7.7); Basophil# 0.02 X10^3/uL; Basophil% 0.6 % (0-1); Eosinophil# 0.18 X10^3/uL; Eosinophils% 5.2 % (0-5); Hematocrit 23.5 % (37-47); Hemoglobin 7.8 g/dl (12.0-15.0); Lymphocyte % 11.5 % (19-41); Mean Corp Hgb Conc 33.2 g/gl (32-36); Mean Corpuscular Hgb 30.7 pg (27.0-32.0); Mean Corpuscular Volume 92.5 fL (81-99); Mean Platelet Vol. 8.7 fl (6.2-12.0); Monocyte# 0.44 X10^3/uL; Monocyte% 12.7 % (0-10); Neutrophil # 2.42 X10^3/uL (2.7-7.7); Neutrophil % 69.7 % (47-70); Platelet Count 345 K/mm3 (150-450); RBC Distribution Width CV 21.4 % (11.6-14.6); RBC Distribution Width SD 67.1 fl (35.1-43.9); Red Blood Count 2.54 M/mm3 (4.2-5.4); White Blood Count 3.5 K/mm3 (4.4-11.0)
[2018-08-27 06:23] LABS: Differential Indicated SCAN CRITERIA MET; POSITIVE COUNT NO; POSITIVE DIFFERENTIAL YES; POSITIVE MORPHOLOGY YES
[2018-08-27] MEDS: Loperamide 2 MG Capsule PO (06:57)
[2018-08-27] MEDS: Morphine 2 MG/ML Syringe IV (06:57)
[2018-08-27 07:08] LABS: Acanthocytes 2+; Differential Comment SCANNED; Microcytosis 2+; Ovalocyte 2+; Platelet Estimate ADEQUATE (ADEQ); Red Cell Morphology N CHROM NORMAL (NORM C&C); Schistocytes 1+
[2018-08-27] MEDS: Budesonide Respules 0.5 MG/2 ML AMPUL.NEB. INHALATION (07:48)
[2018-08-27] MEDS: Metoprolol(XL)Succ 50 MG Tablet PO (08:50)
[2018-08-27] MEDS: Aspirin 81 MG TAB.CHEW PO (08:50)
[2018-08-27] MEDS: Clopidogrel Bisulfate 75 MG Tablet PO (08:50)
[2018-08-27] MEDS: Lisinopril 40 MG Tablet PO (08:50)
--- NOTE | 2018-08-27 08:51 | CASEMGMT ---
Social Work Note SW received message from Zara with TCU stating pt was loaded with insurance yesterday and she is anticipating she will receive pre-cert today. Plan: TCU pending pre-cert Rossy Hill MSW, SOUND ART INSTRUCTOR
--- NOTE | 2018-08-27 13:24 | CASEMGMT ---
Social Work Note SW received call from Zara with TCU stating pt has been approved to come to TCU today. Physician updated. SW update pt on approval to TCU and discharge to TCU today. Pt states understanding. Plan: TCU today Rossy Hill PROFILER OPERATOR, EXECUTIVE ADMINISTRATIVE ASST
--- NOTE | 2018-08-27 13:42 | PCM.TXEXTCAR ---
- Diet 08/23/18 01:03 Diet: Regular Diet Is pt able to select menu?: Yes - Routine Orders/Code Status Keep PO Greater than or Equal to (%): 94 - encourage use of incentive spirometer Routine Lab Work: CBC - within 3 days, BMP - within 3 days - Wound(s) LLE Wound Type: Surgical Incision Dressing Change: Dry Sterile Dressing - Therapies Weight Bearing: Weight bearing as tolerated Extremity Affected:: Left Lower Physical Therapy: Eval and Treat Occupational Therapy: Eval and Treat - Allergies/Procedures Done in Hospital Allergies/Adverse Reactions: Allergies No Known Allergies Allergy (Verified 08/21/18 09:22) Procedures: - - s/p left hip cehalomedullary nailing - Type of Care/Length of Stay Estimated LOS: Convalescent Care Less Than 30 days Type of Care Needed: Skilled Rehab Potential: Good Prognosis: Good - Additional Orders/Day of Discharge Day of Discharge: 08/27/18 - Dietary and Speech Recommendations Dietitian Recommendations/Changes: Rec Cardiac/low cholesterol diet - Follow Up Care Primary Care Physician: Alix Bonner DO [Primary Care Provider] - Please follow up with your Primary Care Physician in: within 1-2 weeks after discharge Please Follow Up With: Fidelina Suazo DO When: within 2 weeks
--- NOTE | 2018-08-27 13:47 | DS.PCM_ITS ---
Discharge Date and Diagnosis - Problem List Patient Problems: Active and Suspected Problems (Last Updated 08/21/18 @ 12:55 by Carla Sun MD) Debility (Acute) Fall (Acute) Date of Admission: 08/21/18 Date of Discharge: 08/27/18 - Primary Discharge Diagnosis Active and Suspected Problems (Last Updated 08/21/18 @ 12:55 by Carla Sun MD) Closed left hip fracture (Acute) Acute on chronic anemia, blood loss/hemodilution Abnormal EKG Hyponatremia Hypokalemia - Secondary Discharge Diagnosis Chronic Problems (Last Updated 08/21/18 @ 12:55 by Carla Sun MD) Microscopic colitis (Chronic) Status post placement of implantable loop recorder (Chronic) 08/27/[address] Loco @ [facility] Secondary pulmonary arterial hypertension (Chronic) Nicotine dependence (Chronic) CVA (cerebral vascular accident) (Chronic) 04/03/2017 Acute infarct involving right thalamic and posterior limb of right internal capsule Ventricular tachycardia (Chronic) 18 beat run of VT per 30 day event monitor (ord by Dr. Rodriguez in neurology: Dr. Loco monitoring) HTN (hypertension) (Chronic) COPD (chronic obstructive pulmonary disease) (Chronic) Hospital Course and Treatment Imaging Results: Clinical Impression(s) from Imaging Studies Hip/Pelvis X-Ray 08/21/18 10:06 IMPRESSION: Comminuted intertrochanteric fracture with cephalic displacement of the distal fracture fragment. Electronically Signed: Ryan Yun, at 10:34 EDT , Service support , Knee X-Ray 08/21/18 10:40 IMPRESSION: No abnormality is seen. Electronically Signed: Ryan Yun, at 11:37 EDT , Service support , Chest X-Ray 08/21/18 10:55 IMPRESSION: Hyperinflation. No acute abnormality is seen. Electronically Signed: Ryan Yun, at 14:50 EDT , Service support , Hip X-Ray 08/22/18 14:05 IMPRESSION: Intraoperative digital documentation views as described. Electronically Signed: Papo Swenson MD at 17:18 EDT , Service support , Hip X-Ray 08/22/18 16:50 IMPRESSION: Status post ORIF of an intertrochanteric fracture of the left femur. No postoperative complications, follow-up recommended to assure osseous union Electronically Signed: Aguila Kathleen MD at 17:35 EDT , Service support , Orthopedics surgery - Dr. Suazo Operations: None Procedures: None Summary of Care Provided: 68-year-old female admitted after a fall and sustained left hip intertrochanteric fracture. She had left hip cephalo-medullary nailing done on 08/22/[address] Suazo. Postoperatively patient had new EKG changes with persistent T wave inversions. Troponins x3 were negative. History of abnormal stress test in May 2018. Medical management was recommended. She was managed on aspirin Plavix statins metoprolol and lisinopril. Patient continued to improve, her pain was controlled. She had a drop in her hemoglobin and was transfused 2 units of packed RBCs. Stool for occult blood was negative. This was believed to be due to hemodilution/postop. She also had hypokalemia that was replaced. Her hyponatremia was felt he was taken to hydrochlorothiazide and that also improved. Patient was skilled and discharge to long-term facility. Patient Problems: Active and Suspected Problems (Last Updated 08/21/18 @ 12:55 by Carla Sun MD) Debility (Acute) Fall (Acute) Subjective: On the day of discharge, patient was seen and examined. Her pain was controlled. Had no new complaints. Denied chest pain or dizziness or palpitations. Objective: Physical exam: General: Alert, Oriented x3, Cooperative, No apparent distress HEENT: Atraumatic, PERRLA, EOMI, Normocephalic Oral: Moist Mucosa Neck: Supple Lungs: Clear to auscultation, Normal air movement Cardiovascular: Regular rate, Regular Rhythm, Normal S1, Normal S2, No murmurs Abdomen: Bowel Sounds Present, Soft, Non Tender, Non-Distended, No Hepato- splenomegaly Extremities: No edema, Tenderness - over the left hip Skin: No rashes, No breakdown Musculoskeletal: No Tenderness to Palpation of Joints or Extremities Lymphatic: No Cervical, Supraclavicular, or Inguinal Adenopathy Neurological: Cranial nerves II-XII grossly intact, Neuro grossly intact Psych/Mental Status: Normal Affect, Appropriate - Physical Exam Vital Signs Temp Pulse Resp BP Pulse Ox 98 F 92 18 138/70 H 94 08/27/18 08:39 08/27/18 11:01 08/27/18 11:01 08/27/18 08:39 08/27/18 08:39 Oxygen Flow Rate (L/min) 2 Oxygen Delivery Method Room Air Weight: 60.2 kg Body Mass Index (BMI) 23.5 Finger Stick Blood Glucose 90 Intake and Output for Last 24 Hours 08/25/18 08/26/18 08/27/18 23:59 23:59 23:59 Intake Total 725 / 925 250 / 250 560 / 560 Output Total 1100 / 1100 Balance -375 / -175 250 / 250 560 / 560 Microbiology Past 72 Hours 08/27/18 00:35 Stool Occult Blood (RAI) - Final Stool Laboratory Tests Past 24 Hrs 08/23/18 08/26/18 08/26/18 05:57 06:10 16:33 WBC RBC Hgb 7.8 L Hct 23.6 L MCV MCH MCHC RDW RDW Differential Plt Count MPV Immature Gran % (Auto) Neut % (Auto) Lymph % (Auto) [place] % (Auto) Eos % (Auto) Baso % (Auto) Absolute Neuts (auto) Absolute Lymphs (auto) Total Counted Differential Comment Diff Path Review Reviewed Reviewed Platelet Estimate RBC Morphology Microcytosis Ovalocytes Acanthocytes (Spur) Schistocytes Sodium Potassium Chloride Carbon Dioxide Anion Gap BUN Creatinine Estim Creat Clear Calc Est GFR (MDRD) Af Amer Est GFR (MDRD) Non-Af BUN/Creatinine Ratio Glucose Calcium Iron TIBC Iron Saturation Ferritin 08/27/18 08/27/18 08/27/18 05:40 05:40 05:40 WBC 3.5 L RBC 2.54 L Hgb 7.8 L Hct 23.5 L MCV 92.5 MCH 30.7 MCHC 33.2 RDW 21.4 H RDW Differential 67.1 H Plt Count 345 MPV 8.7 Immature Gran % (Auto) 0.300 Neut % (Auto) 69.7 Lymph % (Auto) 11.5 L [place] % (Auto) 12.7 H Eos % (Auto) 5.2 H Baso % (Auto) 0.6 Absolute Neuts (auto) 2.4 Absolute Lymphs (auto) 0.40 L Total Counted Not Reportable Differential Comment SCANNED Diff Path Review May foll Platelet Estimate ADEQUATE RBC Morphology N CHROM Microcytosis 2+ Ovalocytes 2+ Acanthocytes (Spur) 2+ Schistocytes 1+ Sodium 134 L Potassium 3.9 Chloride 104 Carbon Dioxide 22.0 Anion Gap 8 BUN 16 Creatinine 0.93 Estim Creat Clear Calc 49.22 Est GFR (MDRD) Af Amer 77 Est GFR (MDRD) Non-Af 64 BUN/Creatinine Ratio 17.2 Glucose 96 Calcium 8.0 L Iron Pending TIBC Pending Iron Saturation Pending Ferritin Pending Discharge Diet: Low fat/ Low Cholesterol, 2000 mg Sodium Diet Discharge Activity: Return to Normal Activity Home Medications: Medications to take at Discharge Albuterol Sulfate [Albuterol Sulfate Hfa] 8.5 gm IH PRN PRN 08/21/18 Aspirin [Aspirin, Baby] 81 mg PO DAILY@0808/21/18 Atorvastatin Calcium 80 mg PO QHS 08/21/18 Azathioprine [Imuran] 50 mg PO DAILY@0800 08/21/18 Citalopram [Celexa] 20 mg PO QHS 08/21/18 Clopidogrel Bisulfate [Clopidogrel] 75 mg PO DAILY 08/21/18 Fluticasone/Salmeterol [Advair 250-50 Diskus] 1 ea IH BID 08/21/18 Loperamide [Imodium] 2 mg PO PRN PRN 08/21/18 Metoprolol Succinate 50 mg PO DAILY 08/21/18 Ferrous Sulfate 325 mg PO BID 08/27/18 Lisinopril 40 mg PO DAILY #0 08/27/18 Oxycodone [Oxyir] 5 mg PO Q4H PRN PRN 5 Days #20 tab 08/27/18 Senna/Docusate Sodium [Senokot-S] 2 tab PO BID 08/27/18 Following Prescrptions Were Given to Patient: Oxycodone [Oxyir] 5 mg PO Q4H PRN PRN 5 Days #20 tab PRN Reason: Severe Pain (-12/12) Primary Care Physician: Alix Bonner DO [Primary Care Provider] - Please follow up with your Primary Care Physician in: within 1-2 weeks after discharge Please Follow Up With: Fidelina Suazo DO When: within 2 weeks Disposition: [facility] facility Minutes spent on discharge:: 40 Patient Condition:: Stable Medical Necessity - Tobacco Use Smoking Status: Current every day smoker Tobacco Use: Cigarettes Meaningful Use Info Meaningful Use Diagnoses (Choose all that apply): None applicable Code Visit Inpatient E&M: 90781 Disch Hosp
[2018-08-27 15:02] LABS: Ferritin 42 ng/mL (8-252); Iron 30 ug/dL (50-170); Iron Binding Capacity,Total 218 ug/dL (250-450); PERCENT IRON SATURATION 13.8 % (15.0-55.0)
[2018-08-28 14:23] LABS: Pathologist Review Reviewed
== END 2018-08-27 15:24 | disposition skilled nursing facility (03) | DRG 481 ==
LOC: ED 11:15 → MS3 11:42
PROVIDERS: Anesthesiology; Orthopaedic Surgery; Admitting Provider Hospitalist; Emergency Provider Emergency Medicine; Family Provider Family Medicine; PCP Family Medicine; Referring Provider Hospitalist; Visit Provider Internal Medicine
PROC: 0QS736Z Reposition Left Upper Femur with Intramedullary Internal Fixation Device, Percutaneous Approach (ICD-10-PCS; principal; 2018-08-22 13:30)
DX: S72.142A Displaced intertrochanteric fracture of left femur, initial encounter for closed fracture (principal); E87.1 Hypo-osmolality and hyponatremia; I69.354 Hemiplegia and hemiparesis following cerebral infarction affecting left non-dominant side; D62 Acute posthemorrhagic anemia; E87.6 Hypokalemia; W19.XXXA Unspecified fall, initial encounter; Y92.019 Unspecified place in single-family (private) house as the place of occurrence of the external cause; J44.9 Chronic obstructive pulmonary disease, unspecified; I10 Essential (primary) hypertension; K52.839 Microscopic colitis, unspecified; F17.210 Nicotine dependence, cigarettes, uncomplicated; Z79.02 Long term (current) use of antithrombotics/antiplatelets; T50.2X5A Adverse effect of carbonic-anhydrase inhibitors, benzothiadiazides and other diuretics, initial encounter; I27.21 Secondary pulmonary arterial hypertension
CPT/HCPCS: 36415; 51702; 71045; 73502; 73560; 76000; 80048; 81002; 82274; 82728; 83540; 83550; 83735; 84484; 85014; 85018; 85025; 85027; 85610; 86850; 86900; 86920; 93005; 94640; 97162; 97165; 97530; 97535; 99285; C1776; J7030; J7040; P9016; A4216; J1940; J2405

== ENCOUNTER 2018-08-27 15:58 | Inpatient (IN) | payer MEDICARE, SELFPAY ==
[2018-08-22 13:02] VITALS: BMI 23.5
[2018-08-27 15:48] VITALS: BP 178/95; PULSE 93; RESP 20; TEMP 37.5; O2SAT 95; BMI 23.5
--- NOTE | 2018-08-27 15:52 | NURSING ---
pt arrived from [facility] via bed at 1540
[2018-08-27 16:11] VITALS: O2SAT 92
[2018-08-27 17:58] VITALS: BP 160/88; TEMP 37.1
[2018-08-27] MEDS: Ferrous Sulfate 325 MG Tablet PO (18:01)
[2018-08-27] MEDS: Fluticasone/Salmeterol 232-14 Inhaler 1 PUFF IH (18:01)
[2018-08-27] MEDS: Senna/Docusate Sodium 1 Tablet 2 TABLET PO (18:10)
[2018-08-27] MEDS: Citalopram 20 MG Tablet PO (20:35)
[2018-08-27] MEDS: Atorvastatin Calcium 80 MG Tablet PO (20:35)
[2018-08-27] MEDS: azaTHIOprine 50 MG Tablet PO (20:36)
[2018-08-27] MEDS: oxyCODONE 5 MG Tablet PO (20:43)
--- NOTE | 2018-08-27 22:09 | HP.PCM_ITS ---
Problem List (1) Debility Status: Acute (2) Fall Status: Acute (3) Systemic lupus Status: Chronic (4) Tobacco dependence Status: Chronic (5) Closed left hip fracture Status: Acute (6) Microscopic colitis Status: Chronic (7) Secondary pulmonary arterial hypertension Status: Chronic (8) CVA (cerebral vascular accident) Status: Chronic Comment: 04/03/2017 Acute infarct involving right thalamic and posterior limb of right internal capsule (9) Ventricular tachycardia Status: Chronic Comment: 18 beat run of VT per 30 day event monitor (ord by Dr Domenico Rodriguez in neurology: Dr. Loco monitoring) (10) HTN (hypertension) Status: Chronic Qualifiers: (11) COPD (chronic obstructive pulmonary disease) Status: Chronic Qualifiers: History of Present Illness Date of Admission: 08/27/18 Chief Complaint: Here for rehabilitation, strengthening, prior to discharge home with spouse. The patient is a 68 year old Female with below past medical history presented to [facility] Emergency Department 08/21/2018 with fall, left hip pain. 08/21/2018 X-ray pelvis, left hip, left hip fracture. 08/21/2018 X-ray left knee negative. 08/21/2018 Chest X-ray hyperinflation. Unable to bear weight, unable to stand. CBC Hemoglobin 9.5, Sodium 127 chronic. BUN okay, Cr okay, INR okay. Morphine, Zofran IV given. 08/21/2018 Admit to Hospital. Moderate risk for surgery. Hold HCTZ for hyponatremia, hypokalemia. Hold Plavix for surgery. 08/22/2018 Dr. Suazo performed left hip cephalomedullary nailing. Postoperative EKG showed persistent T wave inversions. Troponin negative x 3. Abnormal Stress test 05/22/2018, Medical management. 08/27/2018 Admit to TCU with debility, here for rehabilitation, strengthening, prior to discharge home with spouse. Past Medical History Past Medical History (Chronic Problems): Chronic Problems (Last Updated 08/21/18 @ 12:55 by Carla Sun MD) Systemic lupus (Chronic) Tobacco dependence (Chronic) Microscopic colitis (Chronic) Status post placement of implantable loop recorder (Chronic) 08/27/[address] Loco @ [facility] Secondary pulmonary arterial hypertension (Chronic) Nicotine dependence (Chronic) CVA (cerebral vascular accident) (Chronic) 04/03/2017 Acute infarct involving right thalamic and posterior limb of right internal capsule Ventricular tachycardia (Chronic) 18 beat run of VT per 30 day event monitor (ord by Dr. Rodriguez in neurology: Dr. Loco monitoring) HTN (hypertension) (Chronic) COPD (chronic obstructive pulmonary disease) (Chronic) Medical History: Medical History (Last Updated 08/21/18 @ 12:55 by Carla Sun MD) Secondary pulmonary arterial hypertension (Chronic) I27.21 Nicotine dependence (Chronic) F17.200 CVA (cerebral vascular accident) (Chronic) I63.9 04/03/2017 Acute infarct involving right thalamic and posterior limb of right internal capsule Ventricular tachycardia (Chronic) I47.2 18 beat run of VT per 30 day event monitor (ord by Dr. Rodriguez in neurology: Dr. Loco monitoring) HTN (hypertension) (Chronic) I10 COPD (chronic obstructive pulmonary disease) (Chronic) J44.9 Bronchitis J40 Crohn disease K50.90 Lupus L93.0 Psoriasis L40.9 left sided paresthesias (Inactive) Allergies No Known Allergies Allergy (Verified 08/21/18 09:22) Home Medications: Ambulatory Orders Medication Instructions Recorded Albuterol Sulfate [Albuterol 8.5 gm IH PRN PRN 08/21/18 Sulfate Hfa] Aspirin [Aspirin, Baby] 81 mg PO DAILY@0800 08/21/18 Atorvastatin Calcium 80 mg PO QHS 08/21/18 Azathioprine [Imuran] 50 mg PO DAILY@0800 08/21/18 Citalopram [Celexa] 20 mg PO QHS 08/21/18 Clopidogrel Bisulfate [Clopidogrel] 75 mg PO DAILY 08/21/18 Fluticasone/Salmeterol [Advair 1 ea IH BID 08/21/18 250-50 Diskus] Loperamide [Imodium] 2 mg PO PRN PRN 08/21/18 Metoprolol Succinate 50 mg PO DAILY 08/21/18 Ferrous Sulfate 325 mg PO BID 08/27/18 Lisinopril 40 mg PO DAILY #0 08/27/18 Oxycodone [Oxyir] 5 mg PO Q4H PRN PRN 5 Days #20 tab 08/27/18 Senna/Docusate Sodium [Senokot-S] 2 tab PO BID 08/27/18 Surgical History: Surgical History (Last Reviewed 03/21/18 @ 11:50 by Imtiaz Loco MD) Status post placement of implantable loop recorder (Chronic) Z95.818 08/27/[address] Loco @ [facility] History of appendectomy Z90.49 History of blepharoplasty Z98.890 History of carpal tunnel release Z98.890 History of cataract surgery Z98.49 History of tubal ligation Z98.51 History of appendectomy (Inactive) Z90.49 Status post blepharoplasty of both eyes (Inactive) Z98.890 Surgical History: appendectomy, cataract, - - Blepharoplasty, Carpal tunnel release, Bilateral tubal ligation. Psychiatric History: Anxiety, Depression [employer] History: No pertinent [employer] history Lives: Spouse/ Significant Other Smoking Status: Current every day smoker Tobacco Use: Cigarettes Alcohol: None Drugs: None - *Family History Maternal Family History: Family History (Last Reviewed 03/21/18 @ 11:50 by Imtiaz Loco MD) Father Hypertension Lung cancer Mother Lupus Sister Crohn's disease History Items: No pertinent history Paternal Family History: Family History (Last Reviewed 03/21/18 @ 11:50 by Imtiaz Loco MD) Father Hypertension Lung cancer Mother Lupus Sister Crohn's disease History Items: Cancer Review of Systems Constitutional: Denies: Chills, Fever, Weight Change HEENT: Denies: Head Aches, Sinus Congestion, Sinus Drainage Cardiovascular: Denies: Chest Pain, Palpitations Respiratory: Denies: Cough, Shortness of breath at rest, Sputum production Gastrointestinal: Denies: Abdominal Pain, Nausea, Vomiting Genitourinary: Denies: Dysuria Musculoskeletal: Denies: Joint Pain, Joint Tenderness Skin: Denies: Rash, Wounds Neurological: Denies: Numbness, Tingling, Focal weakness Psychiatric: Denies: Anxiety, Depression, Homicidal Ideations, Suicidal Ideations Hematologic/ Lymphatic: Denies: Easy Bruising, Easy Bleeding VTE Information - Inpt Only VTE Present on Admission: No VTE Mechan Device Prophylaxis: Knee High LORENZO Hose VTE Pharm Prophylaxis ordered?: No Reason prophylaxis not ordered:: Treatment Not Indicated Patient Problems: Active and Suspected Problems (Last Updated 08/21/18 @ 12:55 by Carla Sun MD) Debility (Acute) Fall (Acute) - Physical Exam General: Alert, Oriented x3, Cooperative HEENT: Atraumatic, PERRLA, EOMI, Normocephalic Neck: Supple, No JVD, Negative Carotid Bruits Lungs: Clear to auscultation, Normal air movement Cardiovascular: Regular rate, No murmurs Abdomen: Bowel Sounds Present, Soft, Non Tender Extremities: No edema, Capillary Refill Less than 3 Seconds Skin: No rashes, No breakdown Musculoskeletal: No Tenderness to Palpation of Joints or Extremities Neurological: Cranial nerves II-XII grossly intact, - - Left hemiparesis. Psych/Mental Status: Normal Affect, Appropriate Vital Signs Temp Pulse Resp BP Pulse Ox 98.7 F 93 20 H 160/88 H 92 08/27/18 17:58 08/27/18 15:48 08/27/18 15:48 08/27/18 17:58 08/27/18 16:11 Oxygen Delivery Method Room Air Weight: 60.2 kg Body Mass Index (BMI) 23.5 Finger Stick Blood Glucose 90 Intake and Output for Last 24 Hours 08/25/18 08/26/18 08/27/18 23:59 23:59 23:59 Intake Total 300 / 300 Balance 300 / 300 Assessment/Plan All Active Problems (Last Updated 08/21/18 @ 12:55 by Carla Sun MD) Debility (Acute) Fall (Acute) Closed left hip fracture (Acute) 68 year old female with below past medical history hospitalized for left hip fracture, underwent left hip cephalomedullary nailing 08/22/[address] Suazo, complicated by T wave inversions on EKG, admitted to TCU with debility, here for rehabilitation, strengthening, prior to discharge home with spouse. * Debility - PT/OT. * Pain - Tylenol 1000MG Q6H PRN mild pain, Tramadol 50MG Q6H PRN moderate pain, Oxycodone 5MG Q4H PRN severe pain. * Bowel - Miralax 17GM daily, Senna/colace 2 tablets BID, Dulcolax 10MG daily PRN, stop Loperamide, order KUB, she is FOS on exam. * Pneumonia vaccination - Administer Prevnar 13 and/or Pneumovax 23 as necessary. * DVT prophylaxis - Not necessary, already on dual antiplatelet therapy. * Stroke - Aspirin 81MG daily, Plavix 75MG daily. * Hyperlipidemia - Atorvastatin 80MG QHS. * Lupus - Imuran 50MG QHS. * Depression - Citalopram 20MG daily. * Nutrition - Ensure 120ML 4x/day. * Iron deficiency anemia - Ferrex 150MG BID. * COPD - Advair MDI 1 puff Q12H, Albuterol MDI 2 puffs daily PRN. * Hypertension - Metoprolol succinate 50MG daily, Lisinopril 40MG daily. * CAD - Metoprolol succinate 50MG daily, Lisinopril 40MG daily, Plavix 75MG daily, Aspirin 81MG daily, further workup with Dr. Loco. * Insomnia - Zolpidem 5MG QHS PRN.
--- NOTE | 2018-08-27 22:45 | RAD_ITS ---
HISTORY: CONSTIPATION ADDITIONAL HISTORY: None. COMPARISON: None Technique: Supine abdominal radiographs Number of images including paperwork: 2 FINDINGS: FREE AIR: None detected. BOWEL GAS PATTERN: Nonobstructive. Small amount of colonic stool. Moderate amount of colonic gas. CALCIFICATIONS: No definite urinary tract calculi. ORGANS: No evidence of organomegaly. SOFT TISSUES: Unremarkable. BONES: Recent appearing left hip fracture status post ORIF. RAD/Abdomen Single View (Portable) IMPRESSION: No acute abdominal abnormality is radiographically apparent. at 2326 Reported and signed by: Kirstie Velazquez MD Electronically Signed: Kirstie Velazquez MD at 23:25 EDT Tel , Service support ,
[2018-08-27] MEDS: Zolpidem Tartrate 5 MG Tablet PO (22:57)
--- NOTE | 2018-08-28 01:43 | NURSING ---
Sarbjit warm area noted to posterior left knee. Pt denies pain. Edema noted to leg, will update Dr Lan.
[2018-08-28] MEDS: Fluticasone/Salmeterol 232-14 Inhaler 1 PUFF IH ×2 (05:47→16:20)
[2018-08-28 05:48] VITALS: BP 156/88; PULSE 89
[2018-08-28] MEDS: Polyethylene Glycol 3350 17 GM PACKET PO (05:48)
[2018-08-28] MEDS: Clopidogrel Bisulfate 75 MG Tablet PO (05:48)
[2018-08-28] MEDS: Metoprolol(XL)Succ 50 MG Tablet PO (05:48)
[2018-08-28] MEDS: Senna/Docusate Sodium 1 Tablet 2 TABLET PO (05:50)
[2018-08-28] MEDS: Lisinopril 40 MG Tablet PO (05:50)
[2018-08-28 06:04] LABS: Absolute Lymphocyte Count 0.46 X10^3/ul (0.83-4.51); Absolute Neutrophil Count 2.4 X10^3/uL (2.0-7.7); Basophil# 0.02 X10^3/uL; Basophil% 0.6 % (0-1); Differential Indicated SCAN CRITERIA MET; Eosinophil# 0.23 X10^3/uL; Eosinophils% 6.4 % (0-5); Hematocrit 23.8 % (37-47); Lymphocyte # 0.46 X10^3/ul (4.0); Lymphocyte % 12.8 % (19-41); Mean Corp Hgb Conc 33.6 g/gl (32-36); Mean Corpuscular Hgb 31.5 pg (27.0-32.0); Mean Corpuscular Volume 93.7 fL (81-99); Mean Platelet Vol. 8.6 fl (6.2-12.0); Monocyte# 0.47 X10^3/uL; Monocyte% 13.1 % (0-10); Neutrophil # 2.39 X10^3/uL (2.7-7.7); Neutrophil % 66.8 % (47-70); POSITIVE COUNT NO; POSITIVE DIFFERENTIAL YES; POSITIVE MORPHOLOGY YES; Platelet Count 350 K/mm3 (150-450); RBC Distribution Width CV 22.3 % (11.6-14.6); RBC Distribution Width SD 74.5 fl (35.1-43.9); Red Blood Count 2.54 M/mm3 (4.2-5.4); White Blood Count 3.6 K/mm3 (4.4-11.0)
[2018-08-28 06:06] LABS: Anion Gap 8 (5-15); BUN 19 mg/dL (7-18); BUN/Creat Ratio 20.9 RATIO (10-20); Calcium,Total 8.5 mg/dL (8.5-10.1); Chloride 103 mmol/L (98-107); Creatinine, Serum 0.91 mg/dL (0.55-1.02); EST Glomerular Filtration Rate 66 mL/min (>60); Est Glom Filt Rate - Afr Amer 80 mL/min (>60); Glucose 96 mg/dL (74-106); Potassium 4.3 mmol/L (3.5-5.1); Sodium Level 135 mmol/L (136-145)
[2018-08-28 06:45] VITALS: O2SAT 92
[2018-08-28 06:48] LABS: Acanthocytes 2+; Differential Comment SCANNED; Hypochromasia 2+; Macrocytosis 2+; Microcytosis 1+; Ovalocyte 1+
--- NOTE | 2018-08-28 08:07 | NURSING ---
New order for magnesium citrate x1.
--- NOTE | 2018-08-28 08:33 | VDLE_ITS ---
Reason For Study: Pain RIGHT LEFT GSV is normal. GSV is normal. CFV is compressible, spontaneous, phasic, CFV is compressible, spontaneous, phasic, competent and demonstrates normal competent, and demonstrates normal augmentation. augmentation. FV is compressible, spontaneous, phasic, FV is compressible, spontaneous, phasic, competent and demonstrates normal competent and demonstrates normal augmentation. augmentation. POP V is compressible, spontaneous, phasic, POP V is compressible, spontaneous, phasic, competent and demonstrates normal competent and demonstrates normal augmentation. augmentation. T/P Trunk is compressible. T/P Trunk is compressible. PTV is compressible. PTV is compressible. RT PerV is compressible. LT PerV is compressible. Procedure Exam performed portable in patient room. A preliminary report was called and/or faxed to TCU. Interpretation Summary Deep veins of the lower extremities are bilaterally patent and compressible segmentally. There is no evidence of deep vein thrombosis on either side. Valvular competence appears intact within the proximal deep venous systems bilaterally. The greater saphenous veins appear bilaterally patent and compressible segmentally. Ordering Physician: Hair Lan Chi Referring Physician: Hair Lan Chi Performed By: Linda Hdz, ILYA, RVT
--- NOTE | 2018-08-28 08:35 | NURSING ---
Addendum entered by Teresa Rosales 08/28/18 17:43: BP rechecked after patient sat, BP 154/84, 83. LS with wheezing frontal lobes. Dr. Lan notified, new order for albuterol nebs. Will continue to monitor. Original Note: This nurse transeferring Pt back to bed from bedside commode. Pt noted to have gotten very short of breath and flushed. This nurse obtained vitals BP 171/120 pulse 110 on right arm. BP 163/100 pulse 118 on left. This nurse reported to Teresa LEON
[2018-08-28] MEDS: Iron Polysaccharide Complex 150 MG CAPSULE PO ×2 (08:41→16:21)
[2018-08-28] MEDS: Aspirin 81 MG TAB.CHEW PO (08:41)
[2018-08-28 09:45] VITALS: PULSE 110; O2SAT 95
[2018-08-28] MEDS: Cephalexin 500 MG Capsule PO ×2 (10:44→20:17)
[2018-08-28] MEDS: Doxycycline 100 MG CAPSULE PO ×2 (10:44→20:18)
[2018-08-28] MEDS: Tuberculin,Purif.prot.deriv. 50 TU/ML Vial 5 ML ID (13:01)
[2018-08-28 16:00] VITALS: BP 141/70; PULSE 83; RESP 18; TEMP 37.1; O2SAT 96
[2018-08-28] MEDS: oxyCODONE 5 MG Tablet PO ×2 (16:20→20:26)
[2018-08-28] MEDS: Atorvastatin Calcium 80 MG Tablet PO (20:18)
[2018-08-28] MEDS: azaTHIOprine 50 MG Tablet PO (20:19)
[2018-08-28] MEDS: Citalopram 20 MG Tablet PO (20:21)
[2018-08-28] MEDS: Zolpidem Tartrate 5 MG Tablet PO (20:26)
[2018-08-29 06:53] VITALS: BP 144/86; PULSE 84
[2018-08-29] MEDS: Metoprolol(XL)Succ 50 MG Tablet PO (06:53)
[2018-08-29] MEDS: Lisinopril 40 MG Tablet PO (06:53)
[2018-08-29] MEDS: Fluticasone/Salmeterol 232-14 Inhaler 1 PUFF IH ×2 (06:53→17:30)
[2018-08-29] MEDS: Clopidogrel Bisulfate 75 MG Tablet PO (06:53)
--- NOTE | 2018-08-29 08:44 | NURSING ---
shift supervisor rn reported that pt was to take 75mg azathioprine, on 25 mg daily here. pt states that she was told by dr Rutledge office to take 75mg. new order to increase to 75mg per dr turcios
[2018-08-29 10:00] VITALS: PULSE 83; O2SAT 96
[2018-08-29] MEDS: Aspirin 81 MG TAB.CHEW PO (10:04)
[2018-08-29] MEDS: Iron Polysaccharide Complex 150 MG CAPSULE PO ×2 (10:04→17:30)
[2018-08-29] MEDS: Doxycycline 100 MG CAPSULE PO ×2 (10:04→19:56)
[2018-08-29] MEDS: Cephalexin 500 MG Capsule PO ×2 (10:04→19:57)
[2018-08-29 10:28] LABS: Pathologist Review Reviewed
[2018-08-29] MEDS: Acetaminophen 500 MG Tablet 1000 MG PO (10:47)
[2018-08-29] MEDS: oxyCODONE 5 MG Tablet PO ×2 (10:47→19:59)
[2018-08-29 13:00] VITALS: PULSE 75; RESP 16
[2018-08-29] MEDS: Ipratropium/Albuterol Sulfate 3 ML AMPUL.NEB INHALATION ×2 (13:00→18:27)
--- NOTE | 2018-08-29 15:14 | PHA.CONS_ITS ---
<Ramos Thompson D - Last Filed: 08/29/18 15:14> Progress Note - Pharmacy Subjective: TCU Admission Objective: Allergies No Known Allergies Allergy (Verified 08/21/18 09:22) Current Medications Generic Name Dose Route Start Last Admin Trade Name Freq PRN Reason Stop Dose Admin Acetaminophen 1,000 mg 08/27/18 22:27 08/29/18 10:47 Tylenol PO 1,000 mg Q6H PRN PRN Administration MILD PAIN (1-3/10) Albuterol Sulfate 2.5 mg 08/28/18 17:45 Ventolin Aerosols INHALATION Q2H PRN PRN sob/wheezing Albuterol/Ipratropium 3 ml 08/29/18 10:30 08/29/18 13:00 Duoneb INHALATION 3 ml Q6HWA.RT SHEYLA Administration Aspirin 81 mg 08/28/18 08:00 08/29/18 10:04 Aspirin, Baby PO 81 mg DAILY@0800 SHEYLA Administration Atorvastatin Calcium 80 mg 08/27/18 22:00 08/28/18 20:18 Lipitor PO 80 mg QHS SHEYLA Administration Azathioprine 75 mg 08/29/18 22:00 Imuran PO QHS SHEYLA Bisacodyl 10 mg 08/27/18 22:28 Dulcolax PO DAILY PRN Constipation Cephalexin 500 mg 08/28/18 10:00 08/29/18 10:04 Keflex PO 09/07/18 10:01 500 mg Q12@1000,2200 SHEYLA Administration Citalopram Hydrobromide 20 mg 08/27/18 22:00 08/28/18 20:21 Celexa PO 20 mg QHS SHEYLA Administration Clopidogrel Bisulfate 75 mg 08/28/18 06:00 08/29/18 06:53 Plavix PO 75 mg DAILY SHEYLA Administration Doxycycline Monohydrate 100 mg 08/28/18 10:00 08/29/18 10:04 Doxycycline PO 09/07/18 10:01 100 mg BID@1000,2200 SHEYLA Administration Lisinopril 40 mg 08/28/18 06:00 08/29/18 06:53 Zestril PO 40 mg DAILY SHEYLA Administration Metoprolol Succinate 50 mg 08/28/18 06:00 08/29/18 06:53 Toprol Xl (Beta Saida) PO 50 mg DAILY SHEYLA Administration Multi-Ingredient Cream 1 applic 08/28/18 22:00 08/29/18 00:19 Eucerin TOPICAL Not Given QHS [facility] Protocol Nutritional Formula (Lactose Free) 120 ml 08/27/18 17:00 08/29/18 10:06 Ensure Enlive PO 120 ml 4X/DAY SHEYLA Administration Oxycodone HCl 5 mg 08/27/18 15:53 08/29/18 10:47 Oxyir PO 5 mg Q4H PRN PRN Administration SEVERE PAIN (6-10/10) Polyethylene Glycol 17 gm 08/28/18 17:46 Miralax PO DAILY PRN Constipation Polysaccharide Iron Complex 150 mg 08/28/18 08:00 08/29/18 10:04 Ferrex 150 PO 150 mg BIDCM SHEYLA Administration Fluticasone/Salmeterol 1 puff 08/27/18 18:00 08/29/18 06:53 Fluticasone-Salmeterol 232-14 IH 1 puff Q12 SHEYLA Administration Senna/Docusate Sodium 2 tablet 08/28/18 17:46 Senokot-S, Donita-Colace PO DAILY PRN Constipation Tramadol HCl 50 mg 08/27/18 22:27 Ultram PO Q6H PRN PRN MODERATE PAIN (4-5/10) Tuberculin PPD 5 tu 09/04/18 10:00 Tubersol, Aplisol, Ppd ID 09/04/18 10:01 X1 ONE Zolpidem Tartrate 5 mg 08/27/18 22:28 08/28/18 20:26 Ambien (Generic) PO 5 mg QHS PRN PRN Administration INSOMNIA Problem List (Last Updated 08/21/18 @ 12:55 by Carla Sun MD) Debility (Acute) Fall (Acute) Systemic lupus (Chronic) Tobacco dependence (Chronic) Vital Signs Temp Pulse Resp BP Pulse Ox 98.7 F 75 16 144/86 H 96 08/28/18 16:00 08/29/18 13:00 08/29/18 13:00 08/29/18 06:53 08/28/18 16:00 Oxygen Delivery Method Room Air Weight: 60.2 kg Body Mass Index (BMI) 23.5 Finger Stick Blood Glucose 90 Sodium 135 mmol/L (136-145) L 08/28/18 05:10 Potassium 4.3 mmol/L (3.5-5.1) 08/28/18 05:10 Chloride 103 mmol/L (98-107) 08/28/18 05:10 Carbon Dioxide 24.0 mmol/L (21.0-32.0) 08/28/18 05:10 8 (5-15) 08/28/18 05:10 BUN 19 mg/dL (7-18) H 08/28/18 05:10 0.91 mg/dL (0.55-1.02) 08/28/18 05:10 Est GFR (MDRD) Af Amer 80 mL/min (>60) 08/28/18 05:10 Est GFR (MDRD) Non-Af 66 mL/min (>60) 08/28/18 05:10 20.9 RATIO (10-20) H 08/28/18 05:10 Glucose 96 mg/dL (74-106) 08/28/18 05:10 Assessment/Plan: 1) Pain APAP for mild pain, tramadol for moderate pain, oxycodone for severe pain. Continue to monitor daily pain scores, prn medication. 2) Pulm Advair, duoneb scheduled, prn albuterol inh. Continue to monitor for shortness of breath. * Duplication with salmeterol component of Advair and albuterol component of Duoneb. Consider switching Duonebs to Incruse inhaler. 3) Stroke/CAD/HTN ASA, clopidogrel, atorvastatin, lisinopril, metoprolol. Continue to monitor BP/HR, renal function, electrolytes, lipids, s/s stroke or chest pain. 4) Lupus Azathioprine. Continue to monitor clinically. Psychotropic Medications: 5) Depression Citalopram. Continue to monitor s/s depression. 6) Sleep Zolpidem at HS prn. Continue to monitor prn medication use, for insomnia. Unnecessary Medications: Bowel Regimen: 7) Senna/s, PEG, prn bisacodyl. Continue to monitor prn medication use, for constipation/diarrhea. Date of Note:: 08/29/18 - Provider Comments Provider responsibility: Provider responsible to enter orders to implement recommendations <Hair Lan Chi - Last Filed: 08/29/18 20:17> Progress Note - Pharmacy Subjective: [] Objective: Allergies No Known Allergies Allergy (Verified 06/19/19 09:22) Current Medications Generic Name Dose Route Start Last Admin Trade Name Freq PRN Reason Stop Dose Admin Acetaminophen 1,000 mg 08/27/18 22:27 08/29/18 10:47 Tylenol PO 1,000 mg Q6H PRN PRN Administration MILD PAIN (1-3/10) Albuterol Sulfate 2.5 mg 08/28/18 17:45 Ventolin Aerosols INHALATION Q2H PRN PRN sob/wheezing Albuterol/Ipratropium 3 ml 08/29/18 10:30 08/29/18 13:00 Duoneb INHALATION 3 ml Q6HWA.RT SHEYLA Administration Aspirin 81 mg 08/28/18 08:00 08/29/18 10:04 Aspirin, Baby PO 81 mg DAILY@0800 SHEYLA Administration Atorvastatin Calcium 80 mg 08/27/18 22:00 08/29/18 19:56 Lipitor PO 80 mg QHS SHEYLA Administration Azathioprine 75 mg 08/29/18 22:00 08/29/18 19:56 Imuran PO 75 mg QHS SHEYLA Administration Bisacodyl 10 mg 08/27/18 22:28 Dulcolax PO DAILY PRN Constipation Cephalexin 500 mg 08/28/18 10:00 08/29/18 19:57 Keflex PO 09/07/18 10:01 500 mg Q12@1000,2200 SHEYLA Administration Citalopram Hydrobromide 20 mg 08/27/18 22:00 08/29/18 19:57 Celexa PO 20 mg QHS SHEYLA Administration Clopidogrel Bisulfate 75 mg 08/28/18 06:00 08/29/18 06:53 Plavix PO 75 mg DAILY SHEYLA Administration Doxycycline Monohydrate 100 mg 08/28/18 10:00 08/29/18 19:56 Doxycycline PO 09/07/18 10:01 100 mg BID@1000,2200 SHEYLA Administration Lisinopril 40 mg 08/28/18 06:00 08/29/18 06:53 Zestril PO 40 mg DAILY SHEYLA Administration Metoprolol Succinate 50 mg 08/28/18 06:00 08/29/18 06:53 Toprol Xl (Beta Saida) PO 50 mg DAILY SHEYLA Administration Multi-Ingredient Cream 1 applic 08/28/18 22:00 08/29/18 19:58 Eucerin TOPICAL 1 applicatio QHS [facility] Administration Protocol Nutritional Formula (Lactose Free) 120 ml 08/27/18 17:00 08/29/18 19:57 Ensure Enlive PO Not Given 4X/DAY SHEYLA Oxycodone HCl 5 mg 08/27/18 15:53 08/29/18 19:59 Oxyir PO 5 mg Q4H PRN PRN Administration SEVERE PAIN (6-10/10) Polyethylene Glycol 17 gm 08/28/18 17:46 Miralax PO DAILY PRN Constipation Polysaccharide Iron Complex 150 mg 08/28/18 08:00 08/29/18 17:30 Ferrex 150 PO 150 mg BIDCM SHEYLA Administration Fluticasone/Salmeterol 1 puff 08/27/18 18:00 08/29/18 17:30 Fluticasone-Salmeterol 232-14 IH 1 puff Q12 SHEYLA Administration Senna/Docusate Sodium 2 tablet 08/28/18 17:46 Senokot-S, Donita-Colace PO DAILY PRN Constipation Tramadol HCl 50 mg 08/27/18 22:27 Ultram PO Q6H PRN PRN MODERATE PAIN (4-5/10) Tuberculin PPD 5 tu 09/04/18 10:00 Tubersol, Aplisol, Ppd ID 09/04/18 10:01 X1 ONE Zolpidem Tartrate 5 mg 08/27/18 22:28 08/28/18 20:26 Ambien (Generic) PO 5 mg QHS PRN PRN Administration INSOMNIA Problem List (Last Updated 08/21/18 @ 12:55 by Carla Sun MD) Debility (Acute) Fall (Acute) Systemic lupus (Chronic) Tobacco dependence (Chronic) Vital Signs Temp Pulse Resp BP Pulse Ox 97.7 F L 77 17 137/67 H 99 08/29/18 15:30 08/29/18 15:30 08/29/18 15:30 08/29/18 15:30 08/29/18 15:30 Oxygen Delivery Method Room Air Weight: 60.2 kg Body Mass Index (BMI) 23.5 Finger Stick Blood Glucose 90 Sodium 135 mmol/L (136-145) L 08/28/18 05:10 Potassium 4.3 mmol/L (3.5-5.1) 08/28/18 05:10 Chloride 103 mmol/L (98-107) 08/28/18 05:10 Carbon Dioxide 24.0 mmol/L (21.0-32.0) 08/28/18 05:10 8 (5-15) 08/28/18 05:10 BUN 19 mg/dL (7-18) H 08/28/18 05:10 0.91 mg/dL (0.55-1.02) 08/28/18 05:10 Est GFR (MDRD) Af Amer 80 mL/min (>60) 08/28/18 05:10 Est GFR (MDRD) Non-Af 66 mL/min (>60) 08/28/18 05:10 20.9 RATIO (10-20) H 08/28/18 05:10 Glucose 96 mg/dL (74-106) 08/28/18 05:10 Assessment/Plan: Psychotropic Medications: Unnecessary Medications: Bowel Regimen: - Provider Comments Provider responsibility: Provider responsible to enter orders to implement recommendations Provider Comments to Recommendations by Pharmacy: Agree
[2018-08-29 15:30] VITALS: BP 137/67; PULSE 77; RESP 17; TEMP 36.5; O2SAT 99
[2018-08-29 18:27] VITALS: PULSE 80; RESP 20
[2018-08-29] MEDS: azaTHIOprine 50 MG Tablet 75 MG PO (19:56)
[2018-08-29] MEDS: Atorvastatin Calcium 80 MG Tablet PO (19:56)
[2018-08-29] MEDS: Citalopram 20 MG Tablet PO (19:57)
[2018-08-30] MEDS: Fluticasone/Salmeterol 232-14 Inhaler 1 PUFF IH ×2 (05:44→16:57)
[2018-08-30 05:45] VITALS: BP 153/81; PULSE 82
[2018-08-30] MEDS: Lisinopril 40 MG Tablet PO (05:45)
[2018-08-30] MEDS: Metoprolol(XL)Succ 50 MG Tablet PO (05:45)
[2018-08-30] MEDS: oxyCODONE 5 MG Tablet PO ×2 (05:45→13:14)
[2018-08-30] MEDS: Clopidogrel Bisulfate 75 MG Tablet PO (05:45)
[2018-08-30] MEDS: Umeclidinium Bromide Inhaler 1 PUFF IH (05:46)
[2018-08-30 07:37] VITALS: O2SAT 96
[2018-08-30] MEDS: Iron Polysaccharide Complex 150 MG CAPSULE PO ×2 (08:13→16:57)
[2018-08-30] MEDS: Aspirin 81 MG TAB.CHEW PO (08:13)
[2018-08-30] MEDS: Cephalexin 500 MG Capsule PO ×2 (09:20→20:16)
[2018-08-30] MEDS: Doxycycline 100 MG CAPSULE PO ×2 (09:20→20:14)
[2018-08-30 09:40] VITALS: PULSE 78; RESP 16
[2018-08-30] MEDS: Albuterol 2.5 MG/3 ML VIAL.NEB. INHALATION (09:40)
[2018-08-30 15:19] VITALS: BP 143/81; PULSE 80; RESP 16; TEMP 36.9; O2SAT 97
[2018-08-30] MEDS: Atorvastatin Calcium 80 MG Tablet PO (20:14)
[2018-08-30] MEDS: Citalopram 20 MG Tablet PO (20:14)
[2018-08-30] MEDS: azaTHIOprine 50 MG Tablet 75 MG PO (20:15)
[2018-08-31] MEDS: oxyCODONE 5 MG Tablet PO ×3 (01:15→17:39)
[2018-08-31 06:42] VITALS: BP 150/76; PULSE 81
[2018-08-31] MEDS: Clopidogrel Bisulfate 75 MG Tablet PO (06:42)
[2018-08-31] MEDS: Fluticasone/Salmeterol 232-14 Inhaler 1 PUFF IH ×2 (06:42→16:47)
[2018-08-31] MEDS: Metoprolol(XL)Succ 50 MG Tablet PO (06:42)
[2018-08-31] MEDS: Lisinopril 40 MG Tablet PO (06:43)
[2018-08-31] MEDS: Umeclidinium Bromide Inhaler 1 PUFF IH (06:45)
[2018-08-31 07:05] VITALS: O2SAT 97
[2018-08-31] MEDS: Iron Polysaccharide Complex 150 MG CAPSULE PO ×2 (08:00→16:47)
[2018-08-31] MEDS: Aspirin 81 MG TAB.CHEW PO (08:00)
[2018-08-31] MEDS: Doxycycline 100 MG CAPSULE PO ×2 (09:16→20:36)
[2018-08-31] MEDS: Cephalexin 500 MG Capsule PO ×2 (09:16→20:38)
--- NOTE | 2018-08-31 09:21 | NURSING ---
Addendum entered by Teresa Rosales 08/31/18 18:58: New order for hydrocort 2.5 % to LLE as needed for itching. Original Note: Pt c/o itching to buttocks. Noted scratch to rt upper buttock. Teresa LEON aware. Jv ordered.
[2018-08-31] MEDS: Menthol/Lanolin/Calamine/Znox 113 GM Tube 1 APPLIC TOPICAL ×2 (13:49→20:40)
[2018-08-31 15:46] VITALS: BP 143/77; PULSE 77; RESP 18; TEMP 36.6; O2SAT 92
[2018-08-31 20:20] VITALS: PULSE 80; RESP 18; O2SAT 98
[2018-08-31] MEDS: azaTHIOprine 50 MG Tablet 75 MG PO (20:37)
[2018-08-31] MEDS: Citalopram 20 MG Tablet PO (20:37)
[2018-08-31] MEDS: Atorvastatin Calcium 80 MG Tablet PO (20:38)
[2018-08-31 21:07] VITALS: PULSE 84; RESP 18
[2018-08-31] MEDS: Albuterol 2.5 MG/3 ML VIAL.NEB. INHALATION (21:07)
[2018-09-01 05:43] VITALS: BP 146/77; PULSE 83
[2018-09-01] MEDS: Clopidogrel Bisulfate 75 MG Tablet PO (05:43)
[2018-09-01] MEDS: Lisinopril 40 MG Tablet PO (05:43)
[2018-09-01] MEDS: Metoprolol(XL)Succ 50 MG Tablet PO (05:43)
[2018-09-01] MEDS: Menthol/Lanolin/Calamine/Znox 113 GM Tube 1 APPLIC TOPICAL ×3 (05:46→19:53)
[2018-09-01] MEDS: Fluticasone/Salmeterol 232-14 Inhaler 1 PUFF IH ×2 (05:46→17:14)
[2018-09-01] MEDS: Umeclidinium Bromide Inhaler 1 PUFF IH (05:49)
[2018-09-01 07:01] VITALS: O2SAT 96
[2018-09-01] MEDS: Iron Polysaccharide Complex 150 MG CAPSULE PO ×2 (08:02→17:14)
[2018-09-01] MEDS: Aspirin 81 MG TAB.CHEW PO (08:02)
[2018-09-01] MEDS: Cephalexin 500 MG Capsule PO ×2 (09:27→19:51)
[2018-09-01] MEDS: Doxycycline 100 MG CAPSULE PO ×2 (09:27→19:51)
[2018-09-01 10:00] VITALS: PULSE 72; RESP 18; O2SAT 98
[2018-09-01] MEDS: Acetaminophen 500 MG Tablet 1000 MG PO (11:16)
[2018-09-01 11:34] VITALS: PULSE 78; RESP 24
[2018-09-01] MEDS: Albuterol 2.5 MG/3 ML VIAL.NEB. INHALATION (11:34)
[2018-09-01 15:35] VITALS: BP 132/71; PULSE 72; RESP 16; TEMP 37.7; O2SAT 97
[2018-09-01] MEDS: oxyCODONE 5 MG Tablet PO (17:43)
[2018-09-01] MEDS: Citalopram 20 MG Tablet PO (19:51)
[2018-09-01] MEDS: azaTHIOprine 50 MG Tablet 75 MG PO (19:51)
[2018-09-01] MEDS: Atorvastatin Calcium 80 MG Tablet PO (19:51)
[2018-09-01] MEDS: Zolpidem Tartrate 5 MG Tablet PO (19:58)
[2018-09-02] MEDS: oxyCODONE 5 MG Tablet PO ×3 (03:04→14:49)
[2018-09-02 06:24] VITALS: BP 153/73; PULSE 74
[2018-09-02] MEDS: Clopidogrel Bisulfate 75 MG Tablet PO (06:24)
[2018-09-02] MEDS: Metoprolol(XL)Succ 50 MG Tablet PO (06:24)
[2018-09-02] MEDS: Lisinopril 40 MG Tablet PO (06:24)
[2018-09-02] MEDS: Menthol/Lanolin/Calamine/Znox 113 GM Tube 1 APPLIC TOPICAL ×3 (06:25→19:57)
[2018-09-02] MEDS: Fluticasone/Salmeterol 232-14 Inhaler 1 PUFF IH ×2 (06:26→16:56)
[2018-09-02 06:54] VITALS: O2SAT 95
[2018-09-02] MEDS: Umeclidinium Bromide Inhaler 1 PUFF IH (07:20)
[2018-09-02] MEDS: Aspirin 81 MG TAB.CHEW PO (07:58)
[2018-09-02] MEDS: Iron Polysaccharide Complex 150 MG CAPSULE PO ×2 (07:58→16:57)
[2018-09-02 09:07] VITALS: RESP 16
[2018-09-02] MEDS: Cephalexin 500 MG Capsule PO ×2 (09:15→19:59)
[2018-09-02] MEDS: Doxycycline 100 MG CAPSULE PO ×2 (09:15→19:58)
--- NOTE | 2018-09-02 11:23 | CASEMGMT ---
Insurance Clinical update faxed for continued stay review. Auth# [id number] PAMELA Ya
[2018-09-02] MEDS: Acetaminophen 500 MG Tablet 1000 MG PO (14:49)
[2018-09-02 15:48] VITALS: BP 137/75; PULSE 72; RESP 18; TEMP 36.7; O2SAT 98
[2018-09-02] MEDS: Citalopram 20 MG Tablet PO (19:59)
[2018-09-02] MEDS: azaTHIOprine 50 MG Tablet 75 MG PO (19:59)
[2018-09-02] MEDS: Atorvastatin Calcium 80 MG Tablet PO (19:59)
[2018-09-03] MEDS: oxyCODONE 5 MG Tablet PO ×2 (05:52→14:19)
[2018-09-03] MEDS: Menthol/Lanolin/Calamine/Znox 113 GM Tube 1 APPLIC TOPICAL ×3 (05:54→20:23)
[2018-09-03] MEDS: Fluticasone/Salmeterol 232-14 Inhaler 1 PUFF IH ×2 (05:55→17:51)
[2018-09-03 05:58] VITALS: BP 161/84; PULSE 85
[2018-09-03] MEDS: Clopidogrel Bisulfate 75 MG Tablet PO (05:58)
[2018-09-03] MEDS: Lisinopril 40 MG Tablet PO (05:58)
[2018-09-03] MEDS: Metoprolol(XL)Succ 50 MG Tablet PO (05:58)
[2018-09-03] MEDS: Umeclidinium Bromide Inhaler 1 PUFF IH (06:00)
[2018-09-03] MEDS: Cephalexin 500 MG Capsule PO ×2 (08:32→20:23)
[2018-09-03] MEDS: Iron Polysaccharide Complex 150 MG CAPSULE PO ×2 (08:32→17:50)
[2018-09-03] MEDS: Doxycycline 100 MG CAPSULE PO ×2 (08:32→20:24)
[2018-09-03] MEDS: Aspirin 81 MG TAB.CHEW PO (08:32)
[2018-09-03 15:40] VITALS: BP 143/74; PULSE 71; RESP 16; TEMP 36.7; O2SAT 96
[2018-09-03] MEDS: Atorvastatin Calcium 80 MG Tablet PO (20:23)
[2018-09-03] MEDS: Citalopram 20 MG Tablet PO (20:24)
[2018-09-03] MEDS: azaTHIOprine 50 MG Tablet 75 MG PO (20:25)
[2018-09-03 20:30] VITALS: PULSE 78; RESP 15; O2SAT 98
[2018-09-04] MEDS: Menthol/Lanolin/Calamine/Znox 113 GM Tube 1 APPLIC TOPICAL ×3 (05:34→20:55)
[2018-09-04] MEDS: oxyCODONE 5 MG Tablet PO ×3 (05:37→17:26)
[2018-09-04] MEDS: Fluticasone/Salmeterol 232-14 Inhaler 1 PUFF IH ×2 (05:37→17:26)
[2018-09-04 05:38] VITALS: BP 153/88; PULSE 82
[2018-09-04] MEDS: Lisinopril 40 MG Tablet PO (05:38)
[2018-09-04] MEDS: Clopidogrel Bisulfate 75 MG Tablet PO (05:38)
[2018-09-04] MEDS: Metoprolol(XL)Succ 50 MG Tablet PO (05:38)
[2018-09-04] MEDS: Umeclidinium Bromide Inhaler 1 PUFF IH (05:40)
[2018-09-04 07:06] VITALS: PULSE 82; RESP 16; O2SAT 96
--- NOTE | 2018-09-04 07:19 | NURSING ---
Patient is refusing LORENZO hose. This nurse explained the importance of compression to circulation. Patient then agreed to try roberth wraps BLE. Will cont to monitor. Same reported to CAROLYN Garcia.
[2018-09-04 07:24] LABS: Absolute Lymphocyte Count 0.43 X10^3/ul (0.83-4.51); Absolute Neutrophil Count 2.8 X10^3/uL (2.0-7.7); Basophil# 0.01 X10^3/uL; Basophil% 0.3 % (0-1); Differential Indicated SCAN CRITERIA MET; Eosinophil# 0.12 X10^3/uL; Eosinophils% 3.2 % (0-5); Hematocrit 27.2 % (37-47); Hemoglobin 8.6 g/dl (12.0-15.0); Lymphocyte # 0.43 X10^3/ul (4.0); Lymphocyte % 11.6 % (19-41); Mean Corp Hgb Conc 31.6 g/gl (32-36); Mean Corpuscular Hgb 31.3 pg (27.0-32.0); Mean Corpuscular Volume 98.9 fL (81-99); Mean Platelet Vol. 8.8 fl (6.2-12.0); Monocyte# 0.39 X10^3/uL; Monocyte% 10.5 % (0-10); Neutrophil # 2.76 X10^3/uL (2.7-7.7); Neutrophil % 74.1 % (47-70); POSITIVE COUNT NO; POSITIVE DIFFERENTIAL YES; POSITIVE MORPHOLOGY YES; Platelet Count 377 K/mm3 (150-450); RBC Distribution Width CV 22.7 % (11.6-14.6); RBC Distribution Width SD 77.5 fl (35.1-43.9); Red Blood Count 2.75 M/mm3 (4.2-5.4); White Blood Count 3.7 K/mm3 (4.4-11.0)
[2018-09-04 07:32] LABS: Anion Gap 7 (5-15); BUN 23 mg/dL (7-18); BUN/Creat Ratio 28.1 RATIO (10-20); Calcium,Total 8.3 mg/dL (8.5-10.1); Chloride 106 mmol/L (98-107); Creatinine, Serum 0.82 mg/dL (0.55-1.02); EST Glomerular Filtration Rate 74 mL/min (>60); Est Glom Filt Rate - Afr Amer 90 mL/min (>60); Estimated Creatinine Clearance 55.83 ml/min; Glucose 111 mg/dL (74-106); Sodium Level 136 mmol/L (136-145)
[2018-09-04 08:23] LABS: Anisocytosis RARE
[2018-09-04] MEDS: Aspirin 81 MG TAB.CHEW PO (09:30)
[2018-09-04] MEDS: Iron Polysaccharide Complex 150 MG CAPSULE PO ×2 (09:30→17:26)
[2018-09-04] MEDS: Doxycycline 100 MG CAPSULE PO ×2 (09:30→20:51)
[2018-09-04] MEDS: Cephalexin 500 MG Capsule PO ×2 (09:30→20:52)
[2018-09-04] MEDS: Tuberculin,Purif.prot.deriv. 50 TU/ML Vial 5 ML ID (10:39)
[2018-09-04 14:52] VITALS: BP 139/80; PULSE 68; RESP 16; TEMP 37; O2SAT 98
[2018-09-04] MEDS: FLUCONAZOLE 150 MG TABLET PO (18:04)
[2018-09-04] MEDS: Zolpidem Tartrate 5 MG Tablet PO (20:50)
[2018-09-04] MEDS: azaTHIOprine 50 MG Tablet 75 MG PO (20:51)
[2018-09-04] MEDS: Atorvastatin Calcium 80 MG Tablet PO (20:52)
[2018-09-04] MEDS: Citalopram 20 MG Tablet PO (20:52)
[2018-09-05 05:44] VITALS: BP 152/79; PULSE 75
[2018-09-05] MEDS: Metoprolol(XL)Succ 50 MG Tablet PO (05:44)
[2018-09-05] MEDS: Clopidogrel Bisulfate 75 MG Tablet PO (05:44)
[2018-09-05] MEDS: Lisinopril 40 MG Tablet PO (05:44)
[2018-09-05] MEDS: Menthol/Lanolin/Calamine/Znox 113 GM Tube 1 APPLIC TOPICAL ×3 (05:45→20:26)
[2018-09-05] MEDS: Fluticasone/Salmeterol 232-14 Inhaler 1 PUFF IH ×2 (05:46→17:02)
[2018-09-05] MEDS: Umeclidinium Bromide Inhaler 1 PUFF IH (05:49)
[2018-09-05] MEDS: Iron Polysaccharide Complex 150 MG CAPSULE PO ×2 (08:27→16:17)
[2018-09-05] MEDS: Aspirin 81 MG TAB.CHEW PO (08:27)
[2018-09-05] MEDS: oxyCODONE 5 MG Tablet PO ×2 (08:27→16:17)
[2018-09-05] MEDS: Doxycycline 100 MG CAPSULE PO ×2 (09:20→20:25)
[2018-09-05] MEDS: Cephalexin 500 MG Capsule PO ×2 (09:20→20:28)
--- NOTE | 2018-09-05 11:08 | NURSING ---
8 sherley removed from left proximal hip incision. 7 sherley removed from left medial hip incision. 9 sherley removed from left distal hip incision. All incisions well approximated with no redness or drainage noted. Pt tolerated well.
[2018-09-05 14:09] VITALS: BP 140/77; PULSE 67; RESP 20; TEMP 37.3; O2SAT 98
[2018-09-05] MEDS: Zolpidem Tartrate 5 MG Tablet PO (20:24)
[2018-09-05] MEDS: azaTHIOprine 50 MG Tablet 75 MG PO (20:25)
[2018-09-05] MEDS: Citalopram 20 MG Tablet PO (20:26)
[2018-09-05] MEDS: Atorvastatin Calcium 80 MG Tablet PO (20:27)
[2018-09-05 20:30] VITALS: PULSE 76; RESP 18; O2SAT 94
[2018-09-06] MEDS: Fluticasone/Salmeterol 232-14 Inhaler 1 PUFF IH ×2 (06:39→17:30)
[2018-09-06] MEDS: Umeclidinium Bromide Inhaler 1 PUFF IH (06:40)
[2018-09-06 06:41] VITALS: BP 144/71; PULSE 69
[2018-09-06] MEDS: Metoprolol(XL)Succ 50 MG Tablet PO (06:41)
[2018-09-06] MEDS: Clopidogrel Bisulfate 75 MG Tablet PO (06:41)
[2018-09-06] MEDS: Lisinopril 40 MG Tablet PO (06:43)
[2018-09-06] MEDS: Menthol/Lanolin/Calamine/Znox 113 GM Tube 1 APPLIC TOPICAL ×3 (06:44→20:10)
[2018-09-06] MEDS: Iron Polysaccharide Complex 150 MG CAPSULE PO ×2 (08:02→17:30)
[2018-09-06] MEDS: Aspirin 81 MG TAB.CHEW PO (08:02)
[2018-09-06] MEDS: Cephalexin 500 MG Capsule PO ×2 (09:42→20:16)
[2018-09-06] MEDS: Doxycycline 100 MG CAPSULE PO ×2 (09:42→20:10)
[2018-09-06 09:43] VITALS: PULSE 73; RESP 16; O2SAT 98
[2018-09-06] MEDS: Albuterol 2.5 MG/3 ML VIAL.NEB. INHALATION ×2 (09:43→20:22)
[2018-09-06 10:00] VITALS: PULSE 74; O2SAT 97
[2018-09-06] MEDS: oxyCODONE 5 MG Tablet PO (11:23)
[2018-09-06 15:33] VITALS: BP 151/80; PULSE 72; RESP 16; TEMP 36.8; O2SAT 97
[2018-09-06] MEDS: azaTHIOprine 50 MG Tablet 75 MG PO (20:09)
[2018-09-06] MEDS: Citalopram 20 MG Tablet PO (20:09)
[2018-09-06] MEDS: Atorvastatin Calcium 80 MG Tablet PO (20:10)
[2018-09-06] MEDS: Zolpidem Tartrate 5 MG Tablet PO (20:14)
[2018-09-06 20:22] VITALS: PULSE 71; RESP 18
[2018-09-07] MEDS: oxyCODONE 5 MG Tablet PO ×3 (02:06→21:24)
[2018-09-07] MEDS: traMADol 50 MG Tablet PO (04:56)
[2018-09-07 04:57] VITALS: BP 142/77; PULSE 70
[2018-09-07] MEDS: Clopidogrel Bisulfate 75 MG Tablet PO (04:57)
[2018-09-07] MEDS: Metoprolol(XL)Succ 50 MG Tablet PO (04:57)
[2018-09-07] MEDS: Lisinopril 40 MG Tablet PO (04:57)
[2018-09-07] MEDS: Umeclidinium Bromide Inhaler 1 PUFF IH (04:59)
[2018-09-07] MEDS: Fluticasone/Salmeterol 232-14 Inhaler 1 PUFF IH ×2 (05:02→17:45)
[2018-09-07] MEDS: Menthol/Lanolin/Calamine/Znox 113 GM Tube 1 APPLIC TOPICAL ×2 (05:03→21:15)
[2018-09-07] MEDS: Iron Polysaccharide Complex 150 MG CAPSULE PO ×2 (08:29→17:45)
[2018-09-07] MEDS: Aspirin 81 MG TAB.CHEW PO (08:29)
[2018-09-07] MEDS: Cephalexin 500 MG Capsule PO (08:30)
[2018-09-07] MEDS: Doxycycline 100 MG CAPSULE PO (08:30)
[2018-09-07 10:00] VITALS: PULSE 70; RESP 18; O2SAT 95
[2018-09-07 15:57] VITALS: BP 137/68; PULSE 65; RESP 16; TEMP 36.7; O2SAT 99
[2018-09-07] MEDS: Atorvastatin Calcium 80 MG Tablet PO (21:16)
[2018-09-07] MEDS: Citalopram 20 MG Tablet PO (21:16)
[2018-09-07] MEDS: azaTHIOprine 50 MG Tablet 75 MG PO (21:17)
[2018-09-07] MEDS: Zolpidem Tartrate 5 MG Tablet PO (21:24)
[2018-09-08] MEDS: Fluticasone/Salmeterol 232-14 Inhaler 1 PUFF IH ×2 (05:40→17:21)
[2018-09-08 05:42] VITALS: BP 155/92; PULSE 76
[2018-09-08] MEDS: Metoprolol(XL)Succ 50 MG Tablet PO (05:42)
[2018-09-08] MEDS: Clopidogrel Bisulfate 75 MG Tablet PO (05:43)
[2018-09-08] MEDS: Lisinopril 40 MG Tablet PO (05:43)
[2018-09-08] MEDS: Menthol/Lanolin/Calamine/Znox 113 GM Tube 1 APPLIC TOPICAL ×3 (05:43→20:42)
[2018-09-08] MEDS: Umeclidinium Bromide Inhaler 1 PUFF IH (05:44)
[2018-09-08] MEDS: Iron Polysaccharide Complex 150 MG CAPSULE PO ×2 (08:34→17:22)
[2018-09-08] MEDS: Aspirin 81 MG TAB.CHEW PO (08:34)
[2018-09-08 10:00] VITALS: PULSE 65; RESP 18; O2SAT 96
[2018-09-08 15:37] VITALS: BP 150/71; PULSE 72; RESP 16; TEMP 36.4; O2SAT 97
[2018-09-08] MEDS: Zolpidem Tartrate 5 MG Tablet PO (20:46)
[2018-09-08] MEDS: oxyCODONE 5 MG Tablet PO (20:46)
[2018-09-08] MEDS: Atorvastatin Calcium 80 MG Tablet PO (20:48)
[2018-09-08] MEDS: azaTHIOprine 50 MG Tablet 75 MG PO (20:49)
[2018-09-08] MEDS: Citalopram 20 MG Tablet PO (20:49)
[2018-09-09] MEDS: oxyCODONE 5 MG Tablet PO ×2 (06:43→17:12)
[2018-09-09] MEDS: Lisinopril 40 MG Tablet PO (06:43)
[2018-09-09] MEDS: Clopidogrel Bisulfate 75 MG Tablet PO (06:43)
[2018-09-09 06:44] VITALS: BP 142/77; PULSE 66
[2018-09-09] MEDS: Umeclidinium Bromide Inhaler 1 PUFF IH (06:44)
[2018-09-09] MEDS: Metoprolol(XL)Succ 50 MG Tablet PO (06:44)
[2018-09-09] MEDS: Fluticasone/Salmeterol 232-14 Inhaler 1 PUFF IH ×2 (06:45→17:13)
[2018-09-09] MEDS: Aspirin 81 MG TAB.CHEW PO (07:37)
[2018-09-09] MEDS: Iron Polysaccharide Complex 150 MG CAPSULE PO ×2 (07:37→17:13)
[2018-09-09 10:25] VITALS: PULSE 73; RESP 16
[2018-09-09] MEDS: Albuterol 2.5 MG/3 ML VIAL.NEB. INHALATION (10:25)
[2018-09-09] MEDS: Menthol/Lanolin/Calamine/Znox 113 GM Tube 1 APPLIC TOPICAL ×2 (10:50→21:01)
--- NOTE | 2018-09-09 11:40 | MDS.RN ---
Information for the mds was obtained from review of the clinical record, interview of resident, staff, and direct observation of resident's care.
--- NOTE | 2018-09-09 12:01 | CASEMGMT ---
Insurance: Clinical update faxed to [facility] this day. Auth # [id number].
[2018-09-09 16:00] VITALS: BP 170/76; PULSE 68; RESP 16; TEMP 36.8; O2SAT 99
[2018-09-09 21:00] VITALS: PULSE 60; RESP 18; O2SAT 97
[2018-09-09] MEDS: Acetaminophen 500 MG Tablet 1000 MG PO (21:00)
[2018-09-09] MEDS: Zolpidem Tartrate 5 MG Tablet PO (21:00)
[2018-09-09] MEDS: azaTHIOprine 50 MG Tablet 75 MG PO (21:01)
[2018-09-09] MEDS: Citalopram 20 MG Tablet PO (21:01)
[2018-09-09] MEDS: Atorvastatin Calcium 80 MG Tablet PO (21:01)
[2018-09-10] MEDS: Clopidogrel Bisulfate 75 MG Tablet PO (05:19)
[2018-09-10] MEDS: Lisinopril 40 MG Tablet PO (05:19)
[2018-09-10] MEDS: Fluticasone/Salmeterol 232-14 Inhaler 1 PUFF IH ×2 (05:20→16:59)
[2018-09-10 05:21] VITALS: BP 149/91; PULSE 69
[2018-09-10] MEDS: Metoprolol(XL)Succ 50 MG Tablet PO ×2 (05:21→20:32)
[2018-09-10] MEDS: Menthol/Lanolin/Calamine/Znox 113 GM Tube 1 APPLIC TOPICAL ×2 (05:21→14:24)
[2018-09-10] MEDS: Umeclidinium Bromide Inhaler 1 PUFF IH (05:23)
[2018-09-10] MEDS: Aspirin 81 MG TAB.CHEW PO (08:39)
[2018-09-10] MEDS: oxyCODONE 5 MG Tablet PO ×3 (08:39→19:23)
[2018-09-10] MEDS: Iron Polysaccharide Complex 150 MG CAPSULE PO ×2 (08:39→16:59)
[2018-09-10 10:56] VITALS: PULSE 69; RESP 18
--- NOTE | 2018-09-10 11:39 | CASEMGMT ---
Insurance: Continued stay denied. LCD 09/12 with anticipated D/C on 09/13/18. Auth #[id number]
--- NOTE | 2018-09-10 13:18 | CASEMGMT ---
Social Work Insurance issued LCD 09/12 - DC home 09/13. Spoke with pt - pt agreeable to DC home with 09/13. Therapy recommending C PT/OT initially then transition to outpatient therapy, if transportation allows. No DME needs. Referred to [facility]. Plan: DC home with , [facility]HC PT/OT 09/13. Zaida Clark, FERNY CMW
[2018-09-10 15:37] VITALS: BP 150/81; PULSE 67; RESP 16; TEMP 37.1; O2SAT 97
[2018-09-10 20:30] VITALS: BP 144/79; PULSE 65; RESP 18; TEMP 36.8; O2SAT 97
[2018-09-10 20:32] VITALS: BP 144/76; PULSE 64
[2018-09-10] MEDS: Atorvastatin Calcium 80 MG Tablet PO (20:32)
[2018-09-10] MEDS: Citalopram 20 MG Tablet PO (20:32)
[2018-09-10] MEDS: Acetaminophen 500 MG Tablet 1000 MG PO (20:32)
[2018-09-10] MEDS: Zolpidem Tartrate 5 MG Tablet PO (20:33)
[2018-09-10] MEDS: azaTHIOprine 50 MG Tablet 75 MG PO (20:33)
--- NOTE | 2018-09-10 21:53 | PCM.DC ---
- Discharge Diagnoses Current Active Problems: Current Active and Chronic Problems (Last Updated 08/21/18 @ 12:55 by Carla Sun MD) Debility (Acute) Fall (Acute) Systemic lupus (Chronic) Tobacco dependence (Chronic) You will use the following diet at home:: No restrictions, Regular Your food should be the consistency of: Regular Your liquids should be the consistency of: Regular/Thin Discharge Activity: Return to Normal Activity, May Shower, Use Walker Weight Bearing Status: Weight bearing as tolerated Call your doctor if you observe: Fever of 101 or Higher, Inability to urinate, Inability to have a bowel movement, Shortness of breath, Chest pain, Uncontrolled pain Allergies/Adverse Reactions: Allergies No Known Allergies Allergy (Verified 08/21/18 09:22) Medications to take at Discharge Albuterol Sulfate [Albuterol Sulfate Hfa] 8.5 gm IH PRN PRN 08/21/18 Aspirin [Aspirin, Baby] 81 mg PO DAILY@0800 08/21/18 Atorvastatin Calcium 80 mg PO QHS 08/21/18 Azathioprine [Imuran] 50 mg PO DAILY@0800 08/21/18 Citalopram [Celexa] 20 mg PO QHS 08/21/18 Clopidogrel Bisulfate [Clopidogrel] 75 mg PO DAILY 08/21/18 Fluticasone/Salmeterol [Advair 250-50 Diskus] 1 ea IH BID 08/21/18 Metoprolol Succinate 50 mg PO DAILY 08/21/18 Lisinopril 40 mg PO DAILY #0 08/27/18 Acetaminophen [Tylenol] 1,000 mg PO Q6H PRN PRN tab 09/10/18 Iron Polysaccharide Complex [Ferrex 150] 150 mg PO BIDCM #60 cap 09/10/18 Menthol/Lanolin/Calamine/Znox [Calmoseptine Ointment] 1 applic TOPICAL TID tube 09/10/18 Mineral Oil/Petrolatum,White [Eucerin] 1 applic TOPICAL QHS jar 09/10/18 Oxycodone [Oxyir] 5 mg PO Q4H PRN PRN 7 Days #42 tab 09/10/18 Polyethylene Glycol 3350 [Miralax] 17 gm PO DAILY PRN #30 packet 09/10/18 Senna/Docusate Sodium [Senokot-S] 2 tab PO BID #120 tab 09/10/18 Umeclidinium [place] Inhaler [Incruse Ellipta Inhaler] 1 puff IH DAILY #1 inhaler 09/10/18 Zolpidem Tartrate [Ambien] 5 mg PO QHS PRN PRN #30 tab 09/10/18 The following prescriptions were given: Zolpidem Tartrate [Ambien] 5 mg PO QHS PRN PRN #30 tab PRN Reason: Insomnia Prescription Printed Iron Polysaccharide Complex [Ferrex 150] 150 mg PO BIDCM #60 cap [facility] Umeclidinium [place] Inhaler [Incruse Ellipta Inhaler] 1 puff IH DAILY #1 inhaler Transmission Status: [facility] Polyethylene Glycol 3350 [Miralax] 17 gm PO DAILY PRN #30 packet PRN Reason: Constipation Transmission Status[facility] Oxycodone [Oxyir] 5 mg PO Q4H PRN PRN 7 Days #42 tab PRN Reason: Severe Pain (6-12/12) Prescription Printed Senna/Docusate Sodium [Senokot-S] 2 tab PO BID #120 tab Transmission [facility] Primary Care Physician: Alix Bonner DO [Primary Care Provider] - Please follow up with your Primary Care Physician in: 1 week. Test Results: Test results from this visit will be discussed in further detail at your follow-up appointment, if applicable. Please Follow Up With: Fidelina Suazo DO When: 2 weeks. Proposed Discharge Date: 09/13/18
--- NOTE | 2018-09-10 21:55 | PCM.DC.SUM ---
Discharge Date and Diagnosis - Problem List Patient Problems: Active and Suspected Problems (Last Updated 08/21/18 @ 12:55 by Carla Sun MD) Debility (Acute) Fall (Acute) Date of Admission: 08/27/18 Date of Discharge: 09/13/18 - Primary Discharge Diagnosis Active and Suspected Problems (Last Updated 08/21/18 @ 12:55 by Carla Sun MD) Debility (Acute) Fall (Acute) - Secondary Discharge Diagnosis Chronic Problems (Last Updated 08/21/18 @ 12:55 by Carla Sun MD) Systemic lupus (Chronic) Tobacco dependence (Chronic) Microscopic colitis (Chronic) Status post placement of implantable loop recorder (Chronic) 08/27/[address] Loco @ [facility] Secondary pulmonary arterial hypertension (Chronic) Nicotine dependence (Chronic) CVA (cerebral vascular accident) (Chronic) 04/03/2017 Acute infarct involving right thalamic and posterior limb of right internal capsule Ventricular tachycardia (Chronic) 18 beat run of VT per 30 day event monitor (ord by Dr. Rodriguez in neurology: Dr. Loco monitoring) HTN (hypertension) (Chronic) COPD (chronic obstructive pulmonary disease) (Chronic) Hospital Course and Treatment Imaging Results: 08/27/18 15:59 Diet: Regular Diet Clinical Impression(s) from Imaging Studies KUB X-Ray 08/27/18 22:45 IMPRESSION: No acute abdominal abnormality is radiographically apparent. at 2326 Reported and signed by: Kirstie Velazuqez MD Electronically Signed: Kirstie Velazquez MD at 23:25 EDT Tel , Service support , Operations: None Procedures: None Summary of Care Provided: The patient is a 68 year old Female with below past medical history hospitalized for left hip fracture, underwent left hip cephalomedullary nailing 08/22/[address] Suazo, complicated by T wave inversions on EKG, admitted to TCU with debility, here for rehabilitation, strengthening, prior to discharge home with spouse. Discharge home with , [facility] for PT/OT. Patient Problems: Active and Suspected Problems (Last Updated 08/21/18 @ 12:55 by Carla Sun MD) Debility (Acute) Fall (Acute) - Physical Exam Vital Signs Temp Pulse Resp BP Pulse Ox 98.7 F 64 16 144/76 H 97 09/10/18 15:37 09/10/18 20:32 09/10/18 15:37 09/10/18 20:32 09/10/18 15:37 Oxygen Flow Rate (L/min) 2 Oxygen Delivery Method Room Air Weight: 64.864 kg Body Mass Index (BMI) 23.5 Finger Stick Blood Glucose 90 Intake and Output for Last 24 Hours 09/08/18 09/09/18 09/10/18 23:59 23:59 23:59 Intake Total 1200 / 1200 600 / 600 720 / 720 Balance 1200 / 1200 600 / 600 720 / 720 Discharge Diet: No Restrictions Discharge Activity: Return to Normal Activity, May Shower, Use Walker Weight Bearing Status: Weight bearing as tolerated Call your doctor if you observe: Fever of 101 or Higher, Inability to urinate, Inability to have a bowel movement, Shortness of breath, Chest pain, Uncontrolled pain Home Medications: Medications to take at Discharge Albuterol Sulfate [Albuterol Sulfate Hfa] 8.5 gm IH PRN PRN 08/21/18 Aspirin [Aspirin, Baby] 81 mg PO DAILY@0800 08/21/18 Atorvastatin Calcium 80 mg PO QHS 08/21/18 Azathioprine [Imuran] 50 mg PO DAILY@0808/21/18 Citalopram [Celexa] 20 mg PO QHS 08/21/18 Clopidogrel Bisulfate [Clopidogrel] 75 mg PO DAILY 08/21/18 Fluticasone/Salmeterol [Advair 250-50 Diskus] 1 ea IH BID 08/21/18 Metoprolol Succinate 50 mg PO DAILY 08/21/18 Lisinopril 40 mg PO DAILY #0 08/27/18 Acetaminophen [Tylenol] 1,000 mg PO Q6H PRN PRN tab 09/10/18 Iron Polysaccharide Complex [Ferrex 150] 150 mg PO BIDCM #60 cap 09/10/18 Menthol/Lanolin/Calamine/Znox [Calmoseptine Ointment] 1 applic TOPICAL TID tube 09/10/18 Mineral Oil/Petrolatum,White [Eucerin] 1 applic TOPICAL QHS jar 09/10/18 Oxycodone [Oxyir] 5 mg PO Q4H PRN PRN 7 Days #42 tab 09/10/18 Polyethylene Glycol 3350 [Miralax] 17 gm PO DAILY PRN #30 packet 09/10/18 Senna/Docusate Sodium [Senokot-S] 2 tab PO BID #120 tab 09/10/18 Umeclidinium [place] Inhaler [Incruse Ellipta Inhaler] 1 puff IH DAILY #1 inhaler 09/10/18 Zolpidem Tartrate [Ambien] 5 mg PO QHS PRN PRN #30 tab 09/10/18 Following Prescrptions Were Given to Patient: Zolpidem Tartrate [Ambien] 5 mg PO QHS PRN PRN #30 tab PRN Reason: Insomnia Prescription Printed Iron Polysaccharide Complex [Ferrex 150] 150 mg PO BIDCM #60 cap Transmission Status: Pending to [facility] Umeclidinium [place] Inhaler [Incruse Ellipta Inhaler] 1 puff IH DAILY #1 inhaler Transmission Status: Pending to [facility] Polyethylene Glycol 3350 [Miralax] 17 gm PO DAILY PRN #30 packet PRN Reason: Constipation Transmission Status: Pending to [facility] Oxycodone [Oxyir] 5 mg PO Q4H PRN PRN 7 Days #42 tab PRN Reason: Severe Pain (6-10/10) Prescription Printed Senna/Docusate Sodium [Senokot-S] 2 tab PO BID #120 tab Transmission Status: Pending to [facility] Primary Care Physician: Alix Bonner DO [Primary Care Provider] - Please follow up with your Primary Care Physician in: 1 week. Please Follow Up With: Fidelina Suazo DO When: 2 weeks. Disposition: Home with Home Health Minutes spent on discharge:: 35 Patient Condition:: Stable Medical Necessity - Tobacco Use Smoking Status: Current every day smoker Tobacco Use: Cigarettes Meaningful Use Info Meaningful Use Diagnoses (Choose all that apply): None applicable
--- NOTE | 2018-09-10 21:56 | PCM.PN.HH ---
Home Health Note - Plan Overview of reason of hospitalization: The patient is a 68 year old Female with below past medical history hospitalized for left hip fracture, underwent left hip cephalomedullary nailing 08/22/[address] Suazo, complicated by T wave inversions on EKG, admitted to TCU with debility, here for rehabilitation, strengthening, prior to discharge home with spouse. Discharge home with , [facility] for PT/OT. Problems: Patient was seen for (Last Updated 08/21/18 @ 12:55 by Carla Sun MD) Debility (Acute) Fall (Acute) Systemic lupus (Chronic) Tobacco dependence (Chronic) Complete List of Medical Problems (Last Updated 08/21/18 @ 12:55 by Carla Sun MD) Debility (Acute) Fall (Acute) Systemic lupus (Chronic) Tobacco dependence (Chronic) Closed left hip fracture (Acute) Microscopic colitis (Chronic) Status post placement of implantable loop recorder (Chronic) Secondary pulmonary arterial hypertension (Chronic) Nicotine dependence (Chronic) CVA (cerebral vascular accident) (Chronic) Ventricular tachycardia (Chronic) HTN (hypertension) (Chronic) COPD (chronic obstructive pulmonary disease) (Chronic) - Requirements and Reasons Disciplines Needed/Ordered: Physical Therapy Reason for Disciplines: Gait Training, Stair Training, Fall Prevention, Home Safety/Equipment Instruction, Balance and/or Posture Training, Transfer Training Related To: Change in Medical Treatment Plan, Limited/Poor Endurance, Shortness of Breath with Activity, Physical Impairments, Unsteady Gait/Balance, Fall Risk Patient is unable to leave the home: Without Aid of Supportive Devices (crutches, cane, wheelchair, walker), Without the assistance of another person - Additional Disciplines Additional Disciplines Needed/Ordered: Occupational Therapy
[2018-09-11 06:08] LABS: Absolute Lymphocyte Count 0.59 X10^3/ul (0.83-4.51); Absolute Neutrophil Count 1.8 X10^3/uL (2.0-7.7); Basophil# 0.02 X10^3/uL; Basophil% 0.7 % (0-1); Eosinophil# 0.19 X10^3/uL; Eosinophils% 6.4 % (0-5); Hematocrit 27.7 % (37-47); Hemoglobin 8.8 g/dl (12.0-15.0); Lymphocyte # 0.59 X10^3/ul (4.0); Lymphocyte % 19.9 % (19-41); Mean Corp Hgb Conc 31.8 g/gl (32-36); Mean Corpuscular Hgb 31.9 pg (27.0-32.0); Mean Corpuscular Volume 100.4 fL (81-99); Mean Platelet Vol. 9.2 fl (6.2-12.0); Monocyte% 13.5 % (0-10); Neutrophil # 1.75 X10^3/uL (2.7-7.7); Neutrophil % 59.2 % (47-70); Platelet Count 325 K/mm3 (150-450); RBC Distribution Width CV 21.6 % (11.6-14.6); RBC Distribution Width SD 74.6 fl (35.1-43.9); Red Blood Count 2.76 M/mm3 (4.2-5.4)
[2018-09-11 06:09] LABS: Differential Indicated SCAN CRITERIA MET; POSITIVE COUNT NO; POSITIVE DIFFERENTIAL YES; POSITIVE MORPHOLOGY YES
[2018-09-11] MEDS: Clopidogrel Bisulfate 75 MG Tablet PO (06:14)
[2018-09-11] MEDS: Lisinopril 40 MG Tablet PO (06:14)
[2018-09-11] MEDS: Fluticasone/Salmeterol 232-14 Inhaler 1 PUFF IH ×2 (06:14→16:48)
[2018-09-11] MEDS: Umeclidinium Bromide Inhaler 1 PUFF IH (06:14)
[2018-09-11] MEDS: oxyCODONE 5 MG Tablet PO ×3 (06:15→20:50)
[2018-09-11] MEDS: Menthol/Lanolin/Calamine/Znox 113 GM Tube 1 APPLIC TOPICAL ×3 (06:15→20:52)
[2018-09-11 06:26] LABS: Anion Gap 8 (5-15); BUN 23 mg/dL (7-18); BUN/Creat Ratio 24.1 RATIO (10-20); Calcium,Total 8.2 mg/dL (8.5-10.1); Chloride 103 mmol/L (98-107); Creatinine, Serum 0.95 mg/dL (0.55-1.02); EST Glomerular Filtration Rate 62 mL/min (>60); Est Glom Filt Rate - Afr Amer 75 mL/min (>60); Estimated Creatinine Clearance 48.19 ml/min; Glucose 83 mg/dL (74-106); Potassium 4.1 mmol/L (3.5-5.1); Sodium Level 136 mmol/L (136-145)
[2018-09-11 06:52] LABS: Differential Comment SCANNED; Macrocytosis 3+; Microcytosis 1+
[2018-09-11] MEDS: Iron Polysaccharide Complex 150 MG CAPSULE PO ×2 (08:51→16:47)
[2018-09-11] MEDS: Aspirin 81 MG TAB.CHEW PO (08:51)
[2018-09-11 10:00] VITALS: PULSE 65; RESP 18; O2SAT 96
--- NOTE | 2018-09-11 10:36 | VDLE_ITS ---
Reason For Study: LLE swellng RIGHT LEFT CFV is compressible, spontaneous, phasic, GSV is normal. competent and demonstrates normal CFV is compressible, spontaneous, phasic, augmentation. competent, and demonstrates normal Procedure augmentation. Exam performed portable in patient room. FV is compressible, spontaneous, phasic, The exam was diagnostic. competent and demonstrates normal A preliminary report was called and/or faxed augmentation. to TCU. POP V is compressible, spontaneous, phasic, competent and demonstrates normal augmentation. T/P Trunk is compressible. PTV is compressible. LT PerV is compressible. Interpretation Summary Deep veins of the left lower extremity are patent and compressible segmentally. There is no evidence of left lower extremity deep vein thrombosis. Valvular competence appears intact within the proximal deep venous system on the left . The left greater saphenous vein appears patent and compressible segmentally. Ordering Physician: Hair Lan Referring Physician: Lul Hitchcock Performed By: Roxane Newton, RDCS, RVT
--- NOTE | 2018-09-11 10:37 | NURSING ---
Addendum entered by Viviane Longoria 09/11/18 14:56: doppler negative. Original Note: Pt noted to have increased edema to Left foot, negative homans sign. Dr Lan updated. new order for doppler.
[2018-09-11 16:00] VITALS: BP 160/96; PULSE 63; RESP 18; TEMP 36.9; O2SAT 100
[2018-09-11] MEDS: Zolpidem Tartrate 5 MG Tablet PO (20:50)
[2018-09-11] MEDS: Atorvastatin Calcium 80 MG Tablet PO (20:53)
[2018-09-11] MEDS: azaTHIOprine 50 MG Tablet 75 MG PO (20:54)
[2018-09-11] MEDS: Citalopram 20 MG Tablet PO (20:55)
[2018-09-11] MEDS: Senna/Docusate Sodium 1 Tablet 2 TABLET PO (20:59)
[2018-09-11 21:54] LABS: Bacteria 0 SEEN /hpf (None Seen); Mucous, Urine 0 SEEN /hpf (<or=2+); Red Blood Cells-Urine 0 SEEN /hpf (0-5); White Blood Cells 0 SEEN /hpf (0-5)
[2018-09-11 22:08] LABS: Color, Urine Yellow (Yellow); Glucose, Dipstick Normal (Normal); Ketone-Dipstick Negative (Negative); Leukocyte Esterase-Dipstick Negative /ul (Negative); Nitrite-Dipstick Negative (Negative); Occult Blood-Urine Negative /ul (Negative); Protein-Dipstick 15 mg/dl (Negative); Specific Gravity, Urine 1.005 (1.002-1.030); Urine Bilirubin Dipstick Negative (Negative); Urine Clarity Clear (Clear); Urine Urobilinogen Normal (Normal)
[2018-09-11 22:59] LABS: Squamous Epithelial Cells - UA 0-5 SEEN /hpf (5-10)
[2018-09-12] MEDS: Menthol/Lanolin/Calamine/Znox 113 GM Tube 1 APPLIC TOPICAL ×3 (06:31→20:06)
[2018-09-12] MEDS: Fluticasone/Salmeterol 232-14 Inhaler 1 PUFF IH ×2 (06:32→16:50)
[2018-09-12 06:33] VITALS: BP 151/86; PULSE 83
[2018-09-12] MEDS: Lisinopril 40 MG Tablet PO (06:33)
[2018-09-12] MEDS: Clopidogrel Bisulfate 75 MG Tablet PO (06:33)
[2018-09-12] MEDS: Metoprolol(XL)Succ 50 MG Tablet PO (06:33)
[2018-09-12] MEDS: Umeclidinium Bromide Inhaler 1 PUFF IH (06:34)
[2018-09-12] MEDS: Bisacodyl 5 MG Tablet 10 MG PO (06:41)
[2018-09-12] MEDS: Iron Polysaccharide Complex 150 MG CAPSULE PO ×2 (08:13→16:50)
[2018-09-12] MEDS: Aspirin 81 MG TAB.CHEW PO (08:13)
--- NOTE | 2018-09-12 09:14 | NURSING ---
Dr. Lan aware of doppler results
[2018-09-12 09:50] LABS: Pathologist Review Reviewed
[2018-09-12 16:00] VITALS: BP 141/74; PULSE 67; RESP 16; TEMP 36.8; O2SAT 95
[2018-09-12] MEDS: Zolpidem Tartrate 5 MG Tablet PO (20:06)
[2018-09-12] MEDS: Atorvastatin Calcium 80 MG Tablet PO (20:09)
[2018-09-12] MEDS: Citalopram 20 MG Tablet PO (20:09)
[2018-09-12] MEDS: azaTHIOprine 50 MG Tablet 75 MG PO (20:10)
[2018-09-13] MEDS: Fluticasone/Salmeterol 232-14 Inhaler 1 PUFF IH (05:50)
[2018-09-13 05:51] VITALS: BP 153/84; PULSE 92
[2018-09-13] MEDS: Clopidogrel Bisulfate 75 MG Tablet PO (05:51)
[2018-09-13] MEDS: Metoprolol(XL)Succ 50 MG Tablet PO (05:51)
[2018-09-13] MEDS: Lisinopril 40 MG Tablet PO (05:51)
[2018-09-13] MEDS: Menthol/Lanolin/Calamine/Znox 113 GM Tube 1 APPLIC TOPICAL (05:52)
[2018-09-13] MEDS: Umeclidinium Bromide Inhaler 1 PUFF IH (05:53)
[2018-09-13 06:45] VITALS: PULSE 82; RESP 16; O2SAT 98
[2018-09-13] MEDS: Aspirin 81 MG TAB.CHEW PO (08:09)
[2018-09-13] MEDS: Iron Polysaccharide Complex 150 MG CAPSULE PO (08:10)
[2018-09-13 10:24] VITALS: BP 154/76; PULSE 66; RESP 18; TEMP 36.8; O2SAT 99
--- NOTE | 2018-09-13 12:36 | CASEMGMT ---
Social Work BIMS and PHQ-9 completed for MDS assessment. Zaida Clark, [employer]
--- NOTE | 2018-09-24 07:20 | MDS.RN ---
Information for the mds was obtained from review of the clinical record, interview of resident, staff, and direct observation of resident's care.
== END 2018-09-13 10:30 | disposition home health service (06) | DRG 560 ==
PROVIDERS: Admitting Provider Family Medicine Geriatric Medicine; Family Provider Family Medicine; PCP Family Medicine; Referring Provider Family Medicine Geriatric Medicine; Visit Provider Family Medicine Geriatric Medicine
DX: S72.002D Fracture of unspecified part of neck of left femur, subsequent encounter for closed fracture with routine healing (principal); K50.90 Crohn's disease, unspecified, without complications; W19.XXXD Unspecified fall, subsequent encounter; M32.9 Systemic lupus erythematosus, unspecified; I27.21 Secondary pulmonary arterial hypertension; I10 Essential (primary) hypertension; J44.9 Chronic obstructive pulmonary disease, unspecified; L40.9 Psoriasis, unspecified; F17.210 Nicotine dependence, cigarettes, uncomplicated; F32.9 Major depressive disorder, single episode, unspecified; I25.10 Atherosclerotic heart disease of native coronary artery without angina pectoris; D50.9 Iron deficiency anemia, unspecified; E78.5 Hyperlipidemia, unspecified; F41.9 Anxiety disorder, unspecified
CPT/HCPCS: 36415; 74018; 80048; 81001; 85025; 87086; 87088; 93970; 93971; 94640; 97110; 97116; 97163; 97166; 97530; 97535; 97802; 99406

== ENCOUNTER → 2018-09-24 | Outpatient (CLI) | payer MEDICARE, SELFPAY ==
[2018-08-27 15:48] VITALS: BMI 23.5
--- NOTE | 2018-09-24 08:58 | RAD_ITS ---
STUDY: X-RAY - PELVIS AND LEFT HIP REASON FOR EXAM: Female, 68 years old. Postop pain TECHNIQUE: 5 views of the pelvis and hip. COMPARISON: 08/22/2018 FINDINGS: Surgical hardware in the left femur free of complication. Alignment at the fracture site is anatomic. There has been progressive but not yet complete healing of previously described intertrochanteric fracture. Persistent displacement of the lesser trochanter noted. Age consistent bilateral hip and SI joint arthrosis. No acute abnormalities noted. RAD/HIP, UNI W/ Pelvis 2-3 Views IMPRESSION: Healing surgically reduced intertrochanteric fracture of the left femur. Alignment at the fracture site is anatomic, continued follow-up recommended to assure complete osseous union. Electronically Signed: Aguila Kathleen MD at 11:13 EDT , Service support ,
== END | disposition home or self-care (01) ==
LOC: HPRAD 08:57
PROVIDERS: Family Provider Family Medicine; PCP Family Medicine; Referring Provider Orthopaedic Surgery; Visit Provider Orthopaedic Surgery
DX: S72.002A Fracture of unspecified part of neck of left femur, initial encounter for closed fracture (principal)
CPT/HCPCS: 73502

== ENCOUNTER → 2019-03-27 11:41 | Outpatient (CLI) | payer MEDICARE, SELFPAY ==
[2018-12-26 12:58] VITALS: BMI 23.5
[2019-03-27 16:01] LABS: Absolute Lymphocyte Count 0.27 X10^3/uL (0.83-4.51); Absolute Neutrophil Count 2.6 X10^3/uL (2.0-7.7); Basophil# 0.01 X10^3/uL; Basophil% 0.3 % (0-1); Eosinophil# 0.02 X10^3/uL; Eosinophils% 0.6 % (0-5); Hematocrit 34.5 % (37-47); Hemoglobin 11.6 g/dL (12.0-15.0); Lymphocyte # 0.27 X10^3/ul (4.0); Lymphocyte % 8.7 % (19-41); Mean Corp Hgb Conc 33.6 g/dL (32-36); Mean Corpuscular Hgb 37.8 pg (27.0-32.0); Mean Corpuscular Volume 112.4 fL (81-99); Monocyte# 0.24 X10^3/uL; Monocyte% 7.7 % (0-10); NRBC Flagged by Analyzer 0 % (0-5); Neutrophil # 2.55 X10^3/uL (2.7-7.7); Neutrophil % 82.4 % (47-70); POSITIVE DIFFERENTIAL YES; Platelet Count 206 K/mm3 (150-450); RBC Distribution Width CV 14.6 % (11.6-14.6); RBC Distribution Width SD 60.4 fl (35.1-43.9); Red Blood Count 3.07 M/mm3 (4.2-5.4); White Blood Count 3.1 K/mm3 (4.4-11.0)
[2019-03-27 16:05] LABS: Differential Indicated SCAN CRITERIA MET
[2019-03-27 16:13] LABS: Vitamin B12 209 pg/mL (211-911)
[2019-03-27 16:20] LABS: AST(SGOT) 21 U/L (15-37); Alanine Aminotransfer ALT/SGPT 19 U/L (13-56); Albumin, Serum 3.6 g/dL (3.2-5.0); Alkaline Phosphatase 78 U/L (45-117); Anion Gap 6 (5-15); BUN 18 mg/dL (7-18); BUN/Creat Ratio 17.3 RATIO (10-20); Calcium,Total 8.7 mg/dL (8.5-10.1); Chloride 96 mmol/L (98-107); Cholesterol 128 mg/dL (200); Creatinine, Serum 1.04 mg/dL (0.55-1.02); EST Glomerular Filtration Rate 56 mL/min (>60); Est Glom Filt Rate - Afr Amer 68 mL/min (>60); Ferritin 17 ng/mL (8-252); Globulin 3.5 g/dL (2.2-4.2); Glucose 69 mg/dL (74-106); High Density Lipoprotein 66 mg/dL; Iron 76 ug/dL (50-170); Potassium 4.2 mmol/L (3.5-5.1); Protein, Total 7.1 g/dL (6.4-8.2); Sodium Level 130 mmol/L (136-145); Thyroid Stim Hormone (TSH) 1.38 uIU/mL (0.358-3.74); Triglycerides 72 mg/dL; Very Low Density Lipoprotein 14 mg/dL (5-40)
[2019-03-28 13:30] LABS: Pathologist Review Reviewed
== END ==
PROVIDERS: PCP Family Medicine; Visit Provider Family Medicine
DX: I10 Essential (primary) hypertension (principal); D64.9 Anemia, unspecified; K50.90 Crohn's disease, unspecified, without complications; E78.5 Hyperlipidemia, unspecified; Z51.81 Encounter for therapeutic drug level monitoring
CPT/HCPCS: 36415; 80053; 80061; 82607; 82728; 83540; 84443; 85025

== ENCOUNTER → 2019-09-22 11:37 | Outpatient (CLI) | payer MEDICARE, SELFPAY ==
[2018-12-26 12:58] VITALS: BMI 23.5
[2019-09-22 17:12] LABS: Absolute Lymphocyte Count 0.34 X10^3/uL (0.83-4.51); Absolute Neutrophil Count 2.9 X10^3/uL (2.0-7.7); Basophil# 0.01 X10^3/uL; Basophil% 0.3 % (0-1); Eosinophil# 0.04 X10^3/uL; Eosinophils% 1.1 % (0-5); Hematocrit 31.1 % (37-47); Hemoglobin 10.5 g/dL (12.0-15.0); Lymphocyte # 0.34 X10^3/ul (4.0); Lymphocyte % 9.3 % (19-41); Mean Corp Hgb Conc 33.8 g/dL (32-36); Mean Corpuscular Hgb 37.9 pg (27.0-32.0); Mean Corpuscular Volume 112.3 fL (81-99); Mean Platelet Vol. 10.6 fl (6.2-12.0); Monocyte% 10.9 % (0-10); NRBC Flagged by Analyzer 0 % (0-5); Neutrophil # 2.87 X10^3/uL (2.7-7.7); Neutrophil % 78.1 % (47-70); POSITIVE DIFFERENTIAL YES; Platelet Count 211 K/mm3 (150-450); RBC Distribution Width CV 13.7 % (11.6-14.6); RBC Distribution Width SD 56.9 fl (35.1-43.9); Red Blood Count 2.77 M/mm3 (4.2-5.4); White Blood Count 3.7 K/mm3 (4.4-11.0)
[2019-09-22 17:15] LABS: Differential Indicated SCAN CRITERIA MET
[2019-09-22 17:40] LABS: Differential Comment SCANNED
[2019-09-22 17:44] LABS: ALB/GLOB Ratio 0.8 RATIO (0.9-2.4); AST(SGOT) 20 U/L (15-37); Alanine Aminotransfer ALT/SGPT 17 U/L (13-56); Albumin, Serum 3.3 g/dL (3.2-5.0); Alkaline Phosphatase 91 U/L (45-117); Anion Gap 6 (5-15); BUN 17 mg/dL (7-18); Calcium,Total 8.5 mg/dL (8.5-10.1); Chloride 97 mmol/L (98-107); EST Glomerular Filtration Rate 59 mL/min (>60); Est Glom Filt Rate - Afr Amer 71 mL/min (>60); Ferritin 17 ng/mL (8-252); Free T3 2.1 pg/mL (2.18-3.98); Glucose 81 mg/dL (74-106); Iron 47 ug/dL (50-170); Potassium 4.2 mmol/L (3.5-5.1); Protein, Total 7.3 g/dL (6.4-8.2); Sodium Level 130 mmol/L (136-145); T4 Free Direct 1.12 ng/dL (0.76-1.46); Thyroid Stim Hormone (TSH) 1.44 uIU/mL (0.358-3.74)
[2019-09-24 13:47] LABS: Vitamin D,25 Hydroxy 21.8 ng/mL
== END ==
PROVIDERS: PCP Family Medicine; Visit Provider Family Medicine
DX: Z51.81 Encounter for therapeutic drug level monitoring (principal); D64.9 Anemia, unspecified; E03.9 Hypothyroidism, unspecified; E61.1 Iron deficiency; E55.9 Vitamin D deficiency, unspecified
CPT/HCPCS: 36415; 80053; 82306; 82728; 83540; 84439; 84443; 84481; 85025

== ENCOUNTER → 2019-10-17 10:54 | Outpatient (CLI) | payer MEDICARE, SELFPAY ==
[2018-12-26 12:58] VITALS: BMI 23.5
--- NOTE | 2019-10-17 11:15 | RAD_ITS ---
STUDY: X-RAY - PELVIS AND RIGHT HIP REASON FOR EXAM: Female, 69 years old. PT FELL 1 MONTH AGO, AND HAS KNOWN FX OF PELVIS, PT FELL AGAIN 2 DAYS AGO AND HAD NEW PAIN TECHNIQUE: 3 views of the pelvis and hip. COMPARISON: Comparison is made with prior examination dated 09/24/2013. FINDINGS: There is a non-specific bowel gas pattern. Normal visualized soft tissue structures. This evidence of a subacute fracture of the right superior and inferior pubic rami. Normal visualized femoral head. Normal acetabulum. Normal hip joint. Patient status post open reduction internal fixation of a left intertrochanteric fracture utilizing an intramedullary mann and side screw fixation device. RAD/HIP, UNI W/ Pelvis 2-3 Views IMPRESSION: Subacute fractures of the right superior and inferior pubic rami. Electronically Signed: Ryan Yun, at 12:25 EDT , Service support ,
== END ==
PROVIDERS: PCP Family Medicine; Referring Provider Family Medicine; Visit Provider Family Medicine
DX: M25.551 Pain in right hip (principal); R10.2 Pelvic and perineal pain
CPT/HCPCS: 73502

== ENCOUNTER → 2019-11-06 10:05 | Outpatient (CLI) | payer MEDICARE, SELFPAY ==
[2018-12-26 12:58] VITALS: BMI 23.5
--- NOTE | 2019-11-06 15:11 | PFTCOMP_ITS ---
COMPLETE PULMONARY FUNCTION TEST INTERPRETATION Brief HPI: Patient is a 69 year old female, currently under the care of Dr. Bonner, who presents to [facility] for complete pulmonary function tests secondary to diagnosis of COPD. Respiratory therapist reports good effort and reproducible results. Interpretation: Forced expiration spirometry shows a very severe large airways obstructive ventilatory defect with an FEV1 of 33% predicted. There is no significant bronchodilator response by strict ATS criteria. Spirograms are of good quality and plateau slowly, indicating slowly emptying areas of the lungs. The respiratory flow volume loop shows decreased expiratory flow rates at high lung volumes consistent with small airways obstruction. Lung volumes by body plethysmography show an elevated total lung capacity at 6.7 L, 144% predicted. FRC and RV are elevated out of proportion. Lung volume measurements are consistent with hyperinflation and air-trapping. Diffusion capacity by carbon monoxide is decreased at 34% predicted. The airway resistance is elevated. No previous pulmonary function tests were available for review. Impression: Irreversible very severe large airways obstructive ventilatory defect with a symmetric reduction diffusion capacity, resulting in air trapping with hyperinflation, and a pattern consistent with COPD.
== END ==
PROVIDERS: PCP Family Medicine; Referring Provider Family Medicine; Visit Provider Family Medicine
DX: J44.9 Chronic obstructive pulmonary disease, unspecified (principal); R09.02 Hypoxemia
CPT/HCPCS: 94060; 94726; 94729

== ENCOUNTER → 2019-12-17 11:47 | Outpatient (CLI) | payer MEDICARE, SELFPAY ==
[2018-12-26 12:58] VITALS: BMI 23.5
[2019-12-17 15:42] LABS: Absolute Lymphocyte Count 0.51 X10^3/uL (0.83-4.51); Basophil# 0.02 X10^3/uL; Basophil% 0.3 % (0-1); Eosinophil# 0.09 X10^3/uL; Eosinophils% 1.3 % (0-5); Hematocrit 34.5 % (37-47); Lymphocyte # 0.51 X10^3/ul (4.0); Lymphocyte % 7.2 % (19-41); Mean Corp Hgb Conc 31.9 g/dL (32-36); Mean Corpuscular Hgb 36.2 pg (27.0-32.0); Mean Corpuscular Volume 113.5 fL (81-99); Mean Platelet Vol. 10.2 fl (6.2-12.0); Monocyte# 0.44 X10^3/uL; Monocyte% 6.2 % (0-10); NRBC Flagged by Analyzer 0 % (0-5); Neutrophil # 5.99 X10^3/uL (2.7-7.7); Neutrophil % 84.6 % (47-70); POSITIVE DIFFERENTIAL YES; Platelet Count 319 K/mm3 (150-450); RBC Distribution Width CV 14.6 % (11.6-14.6); RBC Distribution Width SD 61.2 fl (35.1-43.9); Red Blood Count 3.04 M/mm3 (4.2-5.4); White Blood Count 7.1 K/mm3 (4.4-11.0)
[2019-12-17 15:45] LABS: Differential Indicated SCAN CRITERIA MET
[2019-12-17 15:48] LABS: ALB/GLOB Ratio 0.8 RATIO (0.9-2.4); AST(SGOT) 18 U/L (15-37); Alanine Aminotransfer ALT/SGPT 19 U/L (13-56); Albumin, Serum 3.3 g/dL (3.2-5.0); Alkaline Phosphatase 106 U/L (45-117); Anion Gap 5 (5-15); BUN 17 mg/dL (7-18); BUN/Creat Ratio 15.5 RATIO (10-20); Calcium,Total 8.6 mg/dL (8.5-10.1); Chloride 103 mmol/L (98-107); EST Glomerular Filtration Rate 53 mL/min (>60); Est Glom Filt Rate - Afr Amer 64 mL/min (>60); Globulin 4.4 g/dL (2.2-4.2); Glucose 72 mg/dL (74-106); Iron 129 ug/dL (50-170); Potassium 4.2 mmol/L (3.5-5.1); Protein, Total 7.7 g/dL (6.4-8.2); Sodium Level 136 mmol/L (136-145)
[2019-12-17 16:06] LABS: Differential Comment SCANNED; Erythrocyte Sedimentation Rate 23 mm/hr (0-30)
[2019-12-17 17:24] LABS: Vitamin D,25 Hydroxy 69.6 ng/mL
== END ==
PROVIDERS: PCP Family Medicine; Visit Provider Family Medicine
CPT/HCPCS: 36415; 80053; 82306; 83540; 85025; 85652; 86140

== ENCOUNTER 2020-01-15 11:00 | Outpatient (RCR) | payer MEDICARE, SELFPAY ==
[2018-12-26 12:58] VITALS: BMI 23.5
--- NOTE | 2019-11-27 12:58 | HP.PTEVAL ---
Patient's Visit Information DONAL JOHNSON is a 69 year old F referred to Physical Therapy by Dr. Alix Bonner DO with a diagnosis of Hip and Pelvic Fracture. Date of Evaluation: 11/27/19 Physical Therapist: Mallika Aj DPT - Visit Plan Frequency: 2x /Week Duration: 4 Weeks - Subjective She was here after she had a stroke- they got back so she could walk- then August of 2018 she fell and broke her hip- [facility]- so she has been on a walker since then. Lived with her daughter for awhile then went home- her was very sick and she was doing a lot of work and sat with him for months- he - one day she woke up and could not move but had x-rays and showed that she had a pelvic fracture but no falls. Now she just needs to get better. Is not painful- and no recent falls. Lives with her daughter- single story living- one stair to enter- is able to navigate herself. Is fully I with dressing and bathing but family makes sure she can get in/out of the shower- sits on a bench. Uses the rollerator all the time. Daughter does all the cooking and cleaning- does not drive. She wants to get back to being fully I and living alone. Poor balance and endurance but has been safe. No dizziness or blurred vision but does have lightheadedness every once in awhile. Goals: walk and be I- get back to out to her life. PMHx/Meds: no changes- scanned in chart. Last x-ray was in October- plans to go again today. - Objective Posture: FH, RS, increased kyphosis- can correct but is unable to maintain. Gait: antalgic- AFO on her left LE-significnat extension in stance phase on the left LE- rollerator- decreased step length and leslie. HR/TR: able in sitting unable in standing (AFO on left). SLS: weight shift. Balance: see below. Sit to Stand: x5 in 30 seconds with UE A. ROM: WFL- tone in the left LE. Strength: Core: poor, Right: Hip: 2+/5 flexion 3+/5 throughout other motions, Knee: 4-/5, Ankle: 2+/5 Left: Hip: 3+/5 throughout, Knee: 4/5, ankle: 4/5. Flex: HS: severe, Gastroc: severe. - Balance Scores Functional Gait Assessment Score: 0 % Disability: 100 - Goals Goal 1:: Patient will be I with HEP and progression Goal Time Frame: 4-6 Weeks Goal 2:: Patient will ambualte >300 feet with a normalized gait pattern and LRD Goal Time Frame: 4-6 Weeks Goal 3:: Patient will demo 4/5 strength in left LE Goal Time Frame: 4-6 Weeks Goal 4:: Patient will sit to stand 8x in 30 seconds Goal Time Frame: 4-6 Weeks - Rehabilitation Potential Physical Therapy Diagnosis: Patient presents with hypomobility- she has decreased strength, flex, proprioception and muscular endurance leading to poor balance and decreased ability to perform ADL's . Rehabilitation Potential: Fair - Anticipated Interventions Patient/Client Instruction: Educate patient on: Benefits of Fitness Program Therapeutic Exercise to Include: Strength training, Endurance training, Balance training, Agility training, Body mechanics, Postural training, Flexibilty training, Gait and locomotor training, Dynamic Lumbar Stabilization, Scapular Strength/Stabilization For the Purpose of:: To improve muscle performance and motor function Thank you for the opportunity to evaluate your patient. For Medicare and Medicare HMO plans, please review the plan of care and approve it. It will need to be FAXED BACK to us at [phone] for Medicare purposes. For Medicare only, by signing this I certify the plan of care. Please let me know if there are questions or concerns regarding this plan of care. Physician Signature: Date:
--- NOTE | 2019-12-25 12:35 | HP.PTREVAL ---
Dr. Alix Bonner, DO, It has been my pleasure to treat DONAL JOHNSON over the last 7 visits for Hip and Pelvic Fracture. Please see the progress note below for an update on the physical therapy plan of care! Subjective: Patient reports thats he feels that she is getting stronger but she is not where she wants to be. Just saw Dr. Mo who wants her to get a bone stimulator- the fracture is healing just very slowly. She is still living with her daughter but doing some of her own ADL's. Pain at its worst is a 5/10 but very rarely and just when she gets up after sitting or laying down. Objective/Function: Posture: FH, RS, increased kyphosis- can correct but is unable to maintain. Gait: antalgic- AFO on her left LE-significnat extension in stance phase on the left LE- rollerator- decreased step length and leslie. HR/TR: able in sitting unable in standing (AFO on left). SLS: weight shift. Balance: see below. Sit to Stand: x5 in 30 seconds with UE A. ROM: WFL- tone in the left LE. Strength: Core: poor, Right: Hip: 2+/5 flexion 3+/5 throughout other motions, Knee: 4/5, Ankle: 2+/5 Left: Hip: 4-/5 throughout, Knee: 4/5, ankle: 4/5. Flex: HS: severe, Gastroc: severe. Plan Plan: Continue to work on building baseline levels of strength, endurance and progress functional tasks. Goals Goal 1:: Patient will be I with HEP and progression Goal Time Frame: 4-6 Weeks Goal 2:: Patient will ambualte >300 feet with a normalized gait pattern and LRD Goal Time Frame: 4-6 Weeks Goal 3:: Patient will demo 4/5 strength in left LE Goal Time Frame: 4-6 Weeks Goal 4:: Patient will sit to stand 8x in 30 seconds Goal Time Frame: 4-6 Weeks Anticipated Interventions Patient/Client Instruction: Educate patient on: Benefits of Fitness Program Therapeutic Exercise to Include: Strength training, Endurance training, Balance training, Agility training, Body mechanics, Postural training, Flexibilty training, Gait and locomotor training, Dynamic Lumbar Stabilization, Scapular Strength/Stabilization For the Purpose of:: To improve muscle performance and motor function Please do not hesitate to contact me at [phone] by phone or if you have questions or concerns regarding this new plan of care! Sincerely, CADEN MendozaT
--- NOTE | 2020-01-19 12:48 | HP.PT.NRP ---
DONAL JOHNSON was seen in my office for initial evaluation on 11/27/19. The following Plan of Care was established for this patient: Initial Frequency: 2x /Week Initial Duration: 4 Weeks Patient/Client Instruction: Educate patient on: Benefits of Fitness Program Therapeutic Exercise to Include: Strength training, Endurance training, Balance training, Agility training, Body mechanics, Postural training, Flexibilty training, Gait and locomotor training, Dynamic Lumbar Stabilization, Scapular Strength/Stabilization For the Purpose of:: To improve muscle performance and motor function This patient was last seen in our office . Pertinent comments regarding their Physical therapy will appear below: Patient to have knee surgery- discharge at this time. At this point I will be discontinuing this patient from physical therapy. I would be happy to see this patient again in the future if found appropriate by the physician. Thank you! CADEN MendozaT
== END 2020-01-15 19:00 | disposition home or self-care (01) ==
LOC: PT 11:00
PROVIDERS: PCP Family Medicine; Referring Provider Family Medicine; Visit Provider Family Medicine
DX: M25.551 Pain in right hip (principal)
CPT/HCPCS: 97110; 97162; 97164

== ENCOUNTER 2020-01-15 16:45 | Emergency (ER) | payer MEDICARE, SELFPAY ==
[2020-01-15 16:46] VITALS: BP 121/85; PULSE 72; RESP 18; TEMP 36.3; O2SAT 95; BMI 21.0
--- NOTE | 2020-01-15 17:47 | CT_ITS ---
STUDY: CT LEFT LOWER EXTREMITY WITHOUT CONTRAST REASON FOR EXAM: Female, 69 years old. FALL TODAY, LT TIBIAL PLATEUA FX RADIATION DOSAGE (If Supplied By Facility): CTDIvol = ( 15.35 ) mGy, DLP = ( 746.44 ) mGycm TECHNIQUE: Transaxial CT imaging of the femur was performed. Sagittal and coronal images were reconstructed. Individualized dose optimization techniques were used for this CT. COMPARISON: None. FINDINGS: An intramedullary mann is noted in the visualized femur. A comminuted fracture is noted at the proximal tibia extending to the articular surface. Fracture fracture line extends across the base of the tibial spines involving the medial and lateral tibial plateaus. A posterior fragment of the lateral tibial plateau demonstrates approximately 2.5 mm depression. Hemarthrosis is noted at the knee with fat/blood level. CT/Extremity Lower without Contra IMPRESSION: Comminuted tibial plateau fracture as noted. Electronically Signed: Ritesh Friend DO at 19:37 EST Tel [phone], Service support ,
--- NOTE | 2020-01-15 17:59 | ED.VIS.GEN ---
History of Present Illness Chief Complaint: Lower Extremity Injury Informant: Patient Onset: Today Context: Sudden Onset Timing: Continuous Current Severity: Moderate Maximum Severity: Moderate Narrative: The patient is a 69-year-old female with medical history significant for prior stroke, lupus, recent pelvis fracture that is not healing with bone stimulator, who presents to the emergency department with knee injury. Patient has been ambulating with walker as needed. Today, she was in her garage. She lost her balance and fell twisting her left knee. She landed on her left knee. Since then, she has had significant pain. She was unable to bear weight. They went to urgent care. She states she had an x-ray which showed a knee fracture. She states that she has been unable to control her pain and cannot walk without bearing weight. She lives by herself and is very worried about how she is going to be able to take care of herself. Prior similar symptoms: No Recent Illness/Hospitalization: No Past Medical History - Allergies and Home Meds Allergies/Adverse Reactions: Allergies No Known Allergies Allergy (Verified 01/15/20 16:49) Primary Care Physician: Alix Bonner DO [Primary Care Provider] - Prior records reviewed: Yes Past Medical History: - - Crohn's disease, COPD, hypertension, hyperlipidemia, prior stroke Surgical History: appendectomy, cataract, - - Blepharoplasty, Carpal tunnel release, Bilateral tubal ligation. - Family History Maternal Family History: Family History (Last Reviewed 03/21/18 @ 11:[address] Imtiaz Loco MD) Father Hypertension Lung cancer Mother Lupus Sister Crohn's disease Family History: Reports: No pertinent history Paternal Family History: Family History (Last Reviewed 03/21/18 @ 11:[address] Imtiaz Loco MD) Father Hypertension Lung cancer Mother Lupus Sister Crohn's disease Family History: Reports: Cancer Review of Systems General: Denies: Chills, Fever, Sweats Eyes: Denies: Visual changes - bilaterally, Diplopia ENT: Denies: Rhinorrhea, Sore throat Cardiovascular: Denies: Chest pain, Palpitations Respiratory: Denies: Dyspnea, Cough, Dyspnea on exertion Gastrointestinal: Denies: Abdominal pain, Nausea, Vomiting, Diarrhea, Melena, Hematochezia Genitourinary: Denies: Dysuria, Hematuria, Frequency Musculoskeletal: Denies: Back pain, Extremity Pain Skin: Denies: Rash, Wounds Neurological: Denies: Headache, Weakness, Numbness Physical Exam Vital Signs/Narrative: Vital Signs Temp Pulse Resp BP Pulse Ox 01/15/20 16:46 97.3 F L 72 18 121/85 H 95 Inital Vital Signs reviewed: Yes General: Well nourished, Well developed, No Acute Distress Head: Normocephalic, Atraumatic Eyes: Perrl, EOMI ENT: Moist mucous membranes, No rhinorrhea Neck: Supple, Nontender Cardiovascular: Regular rate, Regular rhythm, No murmurs Respiratory: No distress, CTA bilaterally, Chest nontender Abdomen: Soft, Nontender, Nondistended, Normal bowel sounds Back: Nontender, Normal Inspection Extremities: No edema, Tenderness Skin: Normal color, No rash Neurological: Alert, Oriented x3, Cranial nerves II-XII grossly intact, Normal Strength, Normal Sensation Psychological: Normal affect, Normal Mood Diagnostic/Tx/Re-eval Clinical Impression(s) from Imaging Studies Lower Extremity CT 01/15/20 17:47 IMPRESSION: Comminuted tibial plateau fracture as noted. Electronically Signed: Ritesh Friend DO at 19:37 EST Tel [phone], Service support , Abnormal Lab Results 01/15/20 01/15/20 18:14 18:14 WBC 7.3 RBC 2.94 L Hgb 10.3 L Hct 32.4 L MCV 110.2 H MCH 35.0 H MCHC 31.8 L RDW Std Deviation 54.9 H RDW Coeff of Marcelo 13.7 Plt Count 281 MPV 9.6 Immature Gran % (Auto) 0.500 Neut % (Auto) 85.0 H Lymph % (Auto) 7.9 L [place] % (Auto) 5.8 Eos % (Auto) 0.5 Baso % (Auto) 0.3 Absolute Neuts (auto) 6.2 Absolute Lymphs (auto) 0.58 L Nucleated RBC % 0 Differential Comment Sodium 135 L Potassium 4.6 Chloride 103 Carbon Dioxide 28.0 Anion Gap 4 L BUN 15 Creatinine 0.92 Estim Creat Clear Calc 46.93 Est GFR (MDRD) Af Amer 78 Est GFR (MDRD) Non-Af 64 BUN/Creatinine Ratio 16.2 Glucose 88 Calcium 8.7 - Medical Decision Making Patient presents with tibial plateau fracture. Her compartments are soft. She is neurovascular intact. She has been unable to walk because of underlying pelvic fractures and gait dysfunction. I did feel the patient was likely going to need admitted. Given the fracture, I did obtain CT. CT does demonstrate comminuted bicondylar tibial plateau fracture with some depression. I did review this with Dr. Mikala Pabon, the patient's orthopedic surgeon. She states based on the films, this is likely going to need operative repair she did think that the patient would best be served at a tertiary facility and I do agree with this. The patient requested transfer to [facility]. Impression 1. Closed bicondylar tibial plateau fracture with intra-articular extension ED Disposition - Plan for ED Patient: Referrals: Alix Bonner DO [Primary Care Provider] -
[2020-01-15] MEDS: Morphine 4 MG/ML Syringe IV (18:08)
[2020-01-15] MEDS: Ondansetron 4 MG/2 ML Vial IV (18:08)
[2020-01-15 18:41] LABS: Anion Gap 4 (5-15); BUN 15 mg/dL (7-18); BUN/Creat Ratio 16.2 RATIO (10-20); Calcium,Total 8.7 mg/dL (8.5-10.1); Chloride 103 mmol/L (98-107); Creatinine, Serum 0.92 mg/dL (0.55-1.02); EST Glomerular Filtration Rate 64 mL/min (>60); Est Glom Filt Rate - Afr Amer 78 mL/min (>60); Estimated Creatinine Clearance 46.93 ml/min; Glucose 88 mg/dL (74-106); Potassium 4.6 mmol/L (3.5-5.1); Sodium Level 135 mmol/L (136-145)
[2020-01-15 18:43] LABS: Absolute Lymphocyte Count 0.58 X10^3/uL (0.83-4.51); Absolute Neutrophil Count 6.2 X10^3/uL (2.0-7.7); Basophil# 0.02 X10^3/uL; Basophil% 0.3 % (0-1); Eosinophil# 0.04 X10^3/uL; Eosinophils% 0.5 % (0-5); Hematocrit 32.4 % (37-47); Hemoglobin 10.3 g/dL (12.0-15.0); Lymphocyte # 0.58 X10^3/ul (4.0); Lymphocyte % 7.9 % (19-41); Mean Corp Hgb Conc 31.8 g/dL (32-36); Mean Corpuscular Volume 110.2 fL (81-99); Mean Platelet Vol. 9.6 fl (6.2-12.0); Monocyte# 0.42 X10^3/uL; Monocyte% 5.8 % (0-10); NRBC Flagged by Analyzer 0 % (0-5); POSITIVE DIFFERENTIAL YES; Platelet Count 281 K/mm3 (150-450); RBC Distribution Width CV 13.7 % (11.6-14.6); RBC Distribution Width SD 54.9 fl (35.1-43.9); Red Blood Count 2.94 M/mm3 (4.2-5.4); White Blood Count 7.3 K/mm3 (4.4-11.0)
[2020-01-15 18:46] VITALS: BP 130/75; PULSE 64; RESP 18; O2SAT 97
[2020-01-15 18:46] LABS: Differential Indicated SCAN CRITERIA MET
--- NOTE | 2020-01-15 19:40 | CM.ED ---
SOCIAL WORK Informant: Dr. Currie Reason for Consult: Discharge Planning Patient with left knee fracture. Updated by Dr. Currie awaiting to speak with Dr. Suazo. Met with patient in room alone with Dr. Currie. Dr. Currie updating patient on CT scan and discussing admission or possible transfer. Awaiting to hear from Dr. Suazo at this time. Patient reports lives home alone and states plan would be for [facility] Rehab prior to home going. Emotional support provided. This worker to remain available for needs. Plan: MARIA LUZ Dorantes, PHARMACOMETRICIAN, VICE ADMIRAL
[2020-01-15 20:00] VITALS: BP 137/62; PULSE 67; RESP 18; O2SAT 97
[2020-01-15 22:00] VITALS: BP 139/74; PULSE 68; RESP 18; O2SAT 96; O2SAT 98
[2020-01-16] MEDS: Morphine 4 MG/ML Syringe IV (00:02)
== END 2020-01-16 00:04 | disposition short-term general hospital (02) ==
LOC: ED 18:01
PROVIDERS: Emergency Provider Emergency Medicine; PCP Family Medicine
DX: S82.142A Displaced bicondylar fracture of left tibia, initial encounter for closed fracture (principal); W18.30XA Fall on same level, unspecified, initial encounter; Y93.01 Activity, walking, marching and hiking; Y92.008 Other place in unspecified non-institutional (private) residence as the place of occurrence of the external cause; Y99.9 Unspecified external cause status; S32.9XXD Fracture of unspecified parts of lumbosacral spine and pelvis, subsequent encounter for fracture with routine healing; X58.XXXD Exposure to other specified factors, subsequent encounter; Z86.73 Personal history of transient ischemic attack (TIA), and cerebral infarction without residual deficits; J44.9 Chronic obstructive pulmonary disease, unspecified; K50.90 Crohn's disease, unspecified, without complications; I10 Essential (primary) hypertension; E78.5 Hyperlipidemia, unspecified; Z79.02 Long term (current) use of antithrombotics/antiplatelets; Z79.82 Long term (current) use of aspirin; Z79.899 Other long term (current) drug therapy
CPT/HCPCS: 73700; 80048; 85025; 96374; 96375; 96376; 99285; A4216; J2405

== ENCOUNTER 2020-01-21 23:01 | Inpatient (IN) | payer MEDICARE, SELFPAY ==
[2020-01-21 23:05] VITALS: BP 139/78; PULSE 78; PULSE 79; RESP 16; RESP 18; TEMP 37.1; O2SAT 95; BMI 23.1
[2020-01-22] MEDS: oxyCODONE 5 MG Tablet PO ×3 (00:35→10:44)
[2020-01-22 00:36] VITALS: BMI 23.1
[2020-01-22 04:46] VITALS: BP 146/76; PULSE 77
[2020-01-22] MEDS: Calcium Carb/Vitamin D 1 TABLET Tablet PO (04:46)
[2020-01-22] MEDS: Metoprolol(XL)Succ 50 MG Tablet PO (04:46)
[2020-01-22] MEDS: Loratadine 10 MG Tablet PO (04:46)
[2020-01-22] MEDS: Citalopram 40 MG TABLET PO (04:46)
[2020-01-22] MEDS: Clopidogrel Bisulfate 75 MG Tablet PO (04:47)
[2020-01-22] MEDS: Lisinopril 40 MG Tablet PO (04:47)
[2020-01-22] MEDS: Fluticasone/Salmeterol 232-14 Inhaler 1 PUFF IH ×2 (04:48→18:03)
[2020-01-22] MEDS: Enoxaparin 40 MG/0.4 ML Syringe SC (04:48)
[2020-01-22 05:50] VITALS: RESP 18; O2SAT 98
[2020-01-22 06:05] LABS: Absolute Lymphocyte Count 0.57 X10^3/uL (0.83-4.51); Absolute Neutrophil Count 3.4 X10^3/uL (2.0-7.7); Basophil# 0.02 X10^3/uL; Basophil% 0.4 % (0-1); Eosinophil# 0.08 X10^3/uL; Eosinophils% 1.8 % (0-5); Hematocrit 24.4 % (37-47); Hemoglobin 7.8 g/dL (12.0-15.0); Lymphocyte # 0.57 X10^3/ul (4.0); Lymphocyte % 12.5 % (19-41); Mean Corpuscular Hgb 33.3 pg (27.0-32.0); Mean Corpuscular Volume 104.3 fL (81-99); Mean Platelet Vol. 9.2 fl (6.2-12.0); Monocyte# 0.46 X10^3/uL; Monocyte% 10.1 % (0-10); NRBC Flagged by Analyzer 0 % (0-5); Neutrophil # 3.39 X10^3/uL (2.7-7.7); Neutrophil % 74.5 % (47-70); POSITIVE DIFFERENTIAL YES; Platelet Count 276 K/mm3 (150-450); RBC Distribution Width CV 16.7 % (11.6-14.6); RBC Distribution Width SD 63.8 fl (35.1-43.9); Red Blood Count 2.34 M/mm3 (4.2-5.4); White Blood Count 4.6 K/mm3 (4.4-11.0)
[2020-01-22 06:24] LABS: Differential Indicated SCAN CRITERIA MET
[2020-01-22 06:35] LABS: BUN 21 mg/dL (7-18); BUN/Creat Ratio 26.7 RATIO (10-20); Calcium,Total 8.2 mg/dL (8.5-10.1); Chloride 106 mmol/L (98-107); Creatinine, Serum 0.79 mg/dL (0.55-1.02); EST Glomerular Filtration Rate 77 mL/min (>60); Est Glom Filt Rate - Afr Amer 94 mL/min (>60); Estimated Creatinine Clearance 43.18 ml/min; Glucose 92 mg/dL (74-106); Potassium 4.2 mmol/L (3.5-5.1); Sodium Level 135 mmol/L (136-145)
[2020-01-22 06:36] LABS: Anion Gap 5 (5-15)
[2020-01-22 06:55] LABS: Differential Comment SCANNED
[2020-01-22] MEDS: Acetaminophen 325 MG Tablet 975 MG PO ×2 (08:44→15:09)
[2020-01-22] MEDS: Aspirin 81 MG TAB.CHEW PO (08:44)
[2020-01-22] MEDS: azaTHIOprine 50 MG Tablet PO (08:44)
[2020-01-22 09:58] LABS: Probe Check PASS; Specimen Processing Control PASS
[2020-01-22] MEDS: Tuberculin,Purif.prot.deriv. 50 TU/ML Vial 5 ML ID (10:46)
[2020-01-22 12:31] VITALS: BP 152/80; PULSE 68; RESP 16; TEMP 36.3; O2SAT 99
[2020-01-22 13:10] VITALS: PULSE 66; RESP 18; O2SAT 97
--- NOTE | 2020-01-22 19:03 | PCM.HP.STD ---
Problem List (1) Fracture of left tibial plateau Status: Acute (2) Multiple falls Status: Chronic (3) Iron deficiency anemia Status: Chronic (4) Osteoporosis Status: Chronic (5) Pelvis fracture Status: Chronic (6) Crohn's disease Status: Chronic (7) Hyperlipidemia Status: Chronic (8) Depression Status: Chronic (9) Tobacco abuse Status: Chronic (10) Debility Status: Acute (11) Fall Status: Acute (12) Systemic lupus Status: Chronic (13) Microscopic colitis Status: Chronic (14) CVA (cerebral vascular accident) Status: Chronic Comment: 04/03/2017 Acute infarct involving right thalamic and posterior limb of right internal capsule (15) HTN (hypertension) Status: Chronic Qualifiers: (16) COPD (chronic obstructive pulmonary disease) Status: Chronic Qualifiers: History of Present Illness Date of Admission: 01/21/20 Chief Complaint: Here for rehabilitation, strengthening, prior to discharge home alone. 01/15/20 The patient is a 69 year old Female with below past medical history presented to [facility] Emergency Department with left lower extremity injury. 01/15/20 CT left lower extremity showed comminuted tibial plateau fracture. Ambulating with walker as needed, Fell in garage recently, non-healing pelvic fracture. Twisting left knee, landed on left knee. Severe pain, unable to bear weight, lives alone. Unable to care for herself. Recommend transfer to [facility] for surgery. 01/15/20 Admit to [facility]. 01/16/20 Orthopedics performed ORIF left tibial plateau fracture. No immediate complications. Lovenox 40MG SC daily x 4 weeks for DVT prophylaxis (stop date 02/15/20) Non weight bearing left lower extremity x 10 weeks, Range of Motion as tolerated. Pain controlled with Tylenol, Dilaudid. 01/17/20 Sodium 128, monitor. Bisphosphonate weekly for osteoporosis. Unable to quit smoking. 01/21/20 Admit to TCU with debility, here for rehabilitation, strengthening, prior to discharge home alone. Past Medical History Past Medical History (Chronic Problems): Chronic Problems (Last Updated 08/21/18 @ 12:[address] Carla Sun MD) Systemic lupus (Chronic) Tobacco dependence (Chronic) Multiple falls (Chronic) Iron deficiency anemia (Chronic) Osteoporosis (Chronic) Pelvis fracture (Chronic) Crohn's disease (Chronic) Hyperlipidemia (Chronic) Depression (Chronic) Tobacco abuse (Chronic) Microscopic colitis (Chronic) Status post placement of implantable loop recorder (Chronic) 08/27/[address] Loco @ [facility] Secondary pulmonary arterial hypertension (Chronic) Nicotine dependence (Chronic) CVA (cerebral vascular accident) (Chronic) 04/03/2017 Acute infarct involving right thalamic and posterior limb of right internal capsule Ventricular tachycardia (Chronic) 18 beat run of VT per 30 day event monitor (ord by Dr. Rodriguez in neurology: Dr. Loco monitoring) HTN (hypertension) (Chronic) COPD (chronic obstructive pulmonary disease) (Chronic) Medical History: Medical History (Last Updated 08/21/18 @ 12:[address] Carla Sun MD) Secondary pulmonary arterial hypertension (Chronic) I27.21 Nicotine dependence (Chronic) F17.200 CVA (cerebral vascular accident) (Chronic) I63.9 04/03/2017 Acute infarct involving right thalamic and posterior limb of right internal capsule Ventricular tachycardia (Chronic) I47.2 18 beat run of VT per 30 day event monitor (ord by Dr. Rodriguez in neurology: Dr. Loco monitoring) HTN (hypertension) (Chronic) I10 COPD (chronic obstructive pulmonary disease) (Chronic) J44.9 Bronchitis J40 Crohn disease K50.90 Lupus L93.0 Psoriasis L40.9 left sided paresthesias (Inactive) Allergies No Known Allergies Allergy (Verified 01/15/20 16:49) Home Medications: Ambulatory Orders Medication Instructions Recorded Atorvastatin Calcium 80 mg PO QHS 08/21/18 Azathioprine [Imuran] 50 mg PO DAILY@0800 08/21/18 Clopidogrel Bisulfate [Clopidogrel] 75 mg PO DAILY 08/21/18 Fluticasone/Salmeterol [Advair 1 ea IH BID 08/21/18 250-50 Diskus] Lisinopril 40 mg PO DAILY #0 08/27/18 aspirin 81 mg chewable tablet 81 mg PO DAILY@0800 #90 tab 03/31/19 metoprolol succinate 50 mg 50 mg PO DAILY #90 tab 06/03/19 tablet,extended release 24 hr citalopram 40 mg tablet 40 mg PO DAILY tab 12/25/19 risedronate 35 mg tablet 35 mg PO QWEEK tab 12/25/19 ropinirole 0.5 mg tablet 1 mg PO QHS tab 12/25/19 Acetaminophen 3 tab PO TID 01/21/20 Albuterol Inhaler [Ventolin Hfa 1 puff INHALATION Q6H PRN PRN 01/21/20 (SP)] Cetirizine HCl 10 mg PO DAILY 01/21/20 Cholecalciferol (Vitamin D3) 1 tab PO DAILY 01/21/20 [Vitamin D3] Enoxaparin [Lovenox] 40 mg SC DAILY 01/21/20 Loperamide [Imodium] 2 mg PO Q6H PRN PRN 01/21/20 Oxycodone [Oxyir] 5 mg PO Q4H PRN PRN 01/21/20 cycloBENZAPRine HCl [Flexeril] 10 mg PO TID PRN PRN 01/21/20 Surgical History: Surgical History (Last Reviewed 03/21/18 @ 11:[address] Imtiaz Loco MD) Status post placement of implantable loop recorder (Chronic) Z95.818 08/27/[address] Loco @ [facility] History of appendectomy Z90.49 History of blepharoplasty Z98.890 History of carpal tunnel release Z98.890 History of cataract surgery Z98.49 History of tubal ligation Z98.51 History of appendectomy (Inactive) Z90.49 Status post blepharoplasty of both eyes (Inactive) Z98.890 Surgical History: appendectomy, cataract, - - Blepharoplasty, Carpal tunnel release, Bilateral tubal ligation, Loop recorder, ORIF left tibial plateau fracture. 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 Imtiaz Loco MD) Father Hypertension Lung cancer Mother Lupus Sister Crohn's disease History Items: No pertinent history Paternal Family History: Family History (Last Reviewed 03/21/18 @ 11:[address] Imtiaz Loco MD) Father Hypertension Lung cancer Mother Lupus Sister Crohn's disease History Items: Cancer Review of Systems Constitutional: Denies: Chills, Fever, Weight Change HEENT: Denies: Head Aches, Sinus Congestion, Sinus Drainage Cardiovascular: Denies: Chest Pain, Palpitations Respiratory: Denies: Cough, Shortness of breath at rest, Sputum production Gastrointestinal: Denies: Abdominal Pain, Nausea, Vomiting Genitourinary: Denies: Dysuria Musculoskeletal: Denies: Joint Pain, Joint Tenderness Skin: Denies: Rash, Wounds Neurological: Denies: Numbness, Tingling, Focal weakness Psychiatric: Denies: Anxiety, Depression, Homicidal Ideations, Suicidal Ideations Hematologic/ Lymphatic: Denies: Easy Bruising, Easy Bleeding VTE Information - Inpt Only VTE Present on Admission: No VTE Mechan Device Prophylaxis: Knee High LORENZO Hose VTE Pharm Prophylaxis ordered?: No Reason prophylaxis not ordered:: Medical Contraindication Patient Problems: Active and Suspected Problems (Last Updated 08/21/18 @ 12:[address] Carla Sun MD) Debility (Acute) Fall (Acute) Fracture of left tibial plateau (Acute) - Physical Exam Vitals/I&O's: Vital Signs Temp Pulse Resp BP Pulse Ox 97.4 F L 66 18 152/80 H 97 01/22/20 12:31 01/22/20 13:10 01/22/20 13:10 01/22/20 12:31 01/22/20 13:10 Oxygen Flow Rate (L/min) 2 Oxygen Delivery Method Nasal Cannula Weight: 57.2 kg Body Mass Index (BMI) 23.1 Finger Stick Blood Glucose 90 Intake and Output for Last 24 Hours 01/20/20 01/21/20 01/22/20 23:59 23:59 23:59 Intake Total 480 / 480 Balance 480 / 480 General: Alert, Oriented x3, Cooperative HEENT: Atraumatic, PERRLA, EOMI, Normocephalic Neck: Supple, No JVD, Negative Carotid Bruits Lungs: Clear to auscultation, Normal air movement Cardiovascular: Regular rate, No murmurs Abdomen: Bowel Sounds Present, Soft, Non Tender Extremities: No edema, Capillary Refill Less than 3 Seconds, - - Left knee brace. Skin: No rashes, No breakdown Musculoskeletal: No Tenderness to Palpation of Joints or Extremities Neurological: Cranial nerves II-XII grossly intact Psych/Mental Status: Normal Affect, Appropriate Laboratory Results 01/22/20 05:10: WBC 4.6, RBC 2.34 L, Hgb 7.8 L, Hct 24.4 L, MCV 104.3 H, MCH 33.3 H, MCHC 32.0, RDW Std Deviation 63.8 H, RDW Coeff of Marcelo 16.7 H, Plt Count 276, MPV 9.2, Immature Gran % (Auto) 0.700, Neut % (Auto) 74.5 H, Lymph % (Auto) 12.5 L, [place] % (Auto) 10.1 H, Eos % (Auto) 1.8, Baso % (Auto) 0.4, Absolute Neuts (auto) 3.4, Absolute Lymphs (auto) 0.57 L, Nucleated RBC % 0, Differential Comment SCANNED 01/22/20 05:10: Sodium 135 L, Potassium 4.2, Chloride 106, Carbon Dioxide 24.0, Anion Gap 5, BUN 21 H, Creatinine 0.79, Estim Creat Clear Calc 43.18, Est GFR (MDRD) Af Amer 94, Est GFR (MDRD) Non-Af 77, BUN/Creatinine Ratio 26.7 H, Glucose 92, Calcium 8.2 L 01/22/20 07:00: COVID-19 (LEONID) Negative 01/22/20 11:25: Blood Type A POSITIVE, Antibody Screen NEGATIVE, Crossmatch See Detail Current Medications Acetaminophen (Acetaminophen 325 Mg Tablet) 975 mg PO TID [facility] Last Admin: 01/22/20 15:09 Dose: 975 mg Documented by: Albuterol Sulfate (Albuterol Sulfate 8 Gm Inhaler (60 Puffs)) 1 puff INHALATION Q6H PRN PRN PRN Reason: WHEEZING Aspirin (Aspirin 81 Mg Tab.Chew) 81 mg PO DAILY@0800 [facility] Last Admin: 01/22/20 08:44 Dose: 81 mg Documented by: Atorvastatin Calcium (Atorvastatin Calcium 80 Mg Tablet) 80 mg PO QHS [facility] Azathioprine (Azathioprine 50 Mg Tablet) 50 mg PO DAILY@0800 [facility] Last Admin: 01/22/20 08:44 Dose: 50 mg Documented by: Calcium/Vitamin D (Calcium Carb/Vitamin D 1 Tablet Tablet) 1 tablet PO DAILY [facility] Last Admin: 01/22/20 04:46 Dose: 1 tablet Documented by: Citalopram Hydrobromide (Citalopram 40 Mg Tablet) 40 mg PO DAILY [facility] Last Admin: 01/22/20 04:46 Dose: 40 mg Documented by: Clopidogrel Bisulfate (Clopidogrel Bisulfate 75 Mg Tablet) 75 mg PO DAILY [facility] Last Admin: 01/22/20 04:47 Dose: 75 mg Documented by: Cyclobenzaprine HCl (Cyclobenzaprine Hcl 10 Mg Tablet) 10 mg PO TID PRN PRN PRN Reason: Muscle Spasms Enoxaparin Sodium (Enoxaparin 40 Mg/0.4 Ml Syringe) 40 mg SC DAILY [facility] Last Admin: 01/22/20 04:48 Dose: 40 mg Documented by: Furosemide (Furosemide 20 Mg/2 Ml Vial) 20 mg IV X1 ONE Stop: 01/23/20 14:01 Lisinopril (Lisinopril 40 Mg Tablet) 40 mg PO DAILY [facility] Last Admin: 01/22/20 04:47 Dose: 40 mg Documented by: Loperamide HCl (Loperamide 2 Mg Capsule) 2 mg PO Q6H PRN PRN PRN Reason: Diarrhea Loratadine (Loratadine 10 Mg Tablet) 10 mg PO DAILY [facility] Last Admin: 01/22/20 04:46 Dose: 10 mg Documented by: Metoprolol Succinate (Metoprolol(Xl)Succ 50 Mg Tablet) 50 mg PO DAILY [facility] Last Admin: 01/22/20 04:46 Dose: 50 mg Documented by: Oxycodone HCl (Oxycodone 5 Mg Tablet) 5 mg PO Q4H PRN PRN PRN Reason: Pain Score 4-10 Last Admin: 01/22/20 10:44 Dose: 5 mg Documented by: Pramipexole Dihydrochloride (Pramipexole Di-Hcl 0.5 Mg Tablet) 0.5 mg PO QHS [facility] Risedronate (Risedronate 35 Mg Tablet) 35 mg PO QWEEK [facility] Fluticasone/Salmeterol (Fluticasone/Salmeterol 232-14 Inhaler) 1 puff IH Q12 [facility] Last Admin: 01/22/20 18:03 Dose: 1 puff Documented by: Tuberculin PPD (Tuberculin,Purif.Prot.Deriv. 50 Tu/Ml Vial) 5 tu ID [id number] ONE Stop: 01/30/20 10:01 Assessment/Plan All Active Problems (Last Updated 08/21/18 @ 12:[address] Carla Sun MD) Debility (Acute) Fall (Acute) Fracture of left tibial plateau (Acute) Closed left hip fracture (Acute) 69 year old female with below past medical history hospitalized for left tibial plateau fracture, underwent ORIF 01/16/20, complicated by hyponatremia, admitted to TCU with debility, here for rehabilitation, strengthening, prior to discharge home alone. Debility - PT/OT. Pain - Tylenol 1000MG TID, Oxycodone 5MG Q4H PRN pain (4-10). Bowel - Imodium 2MG Q6H PRN diarrhea (Crohn's Disease) Adult immunization - Administer Prevnar 13, Pneumovax 23, Fluzone as appropriate. DVT prophylaxis - Hold, on dual antiplatelet therapy, anemia. COPD - Advair 232-14 1 puff Q12H, Albuterol MDI 1 puff Q6H PRN. Stroke - Aspirin 81MG daily, Plavix 75MG daily. Hyperlipidemia - Atorvastatin 80MG QHS. Crohn's Disease - Azathioprine 50MG daily. Calcium deficiency - Calcium D 1 tablet daily. 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 Muscle spasm - Flexeril 10MG TID PRN. Hypertension - Metoprolol succinate 50MG daily, Lisinopril 40MG daily. Restless Leg syndrome - Mirapex 0.5MG QHS. Osteoporosis - Actonel 35MG per week. Anemia - Hemoglobin 7.8, Type & Cross 2 units PRBC, transfuse per protocol, Lasix 20MG IV between units, H&H 24 hours after transfusion.
[2020-01-22] MEDS: Atorvastatin Calcium 80 MG Tablet PO (20:53)
[2020-01-22] MEDS: Pramipexole Di-HCl 0.5 MG Tablet PO (20:54)
[2020-01-22] MEDS: Acetaminophen 500 MG Tablet 1000 MG PO (21:08)
[2020-01-23 05:00] VITALS: BP 172/79; PULSE 63; RESP 18; TEMP 36.9; O2SAT 97
[2020-01-23 05:26] VITALS: BP 172/79; PULSE 63
[2020-01-23] MEDS: Metoprolol(XL)Succ 50 MG Tablet PO (05:26)
[2020-01-23] MEDS: Clopidogrel Bisulfate 75 MG Tablet PO (05:26)
[2020-01-23] MEDS: Lisinopril 40 MG Tablet PO (05:26)
[2020-01-23] MEDS: Loratadine 10 MG Tablet PO (05:26)
[2020-01-23] MEDS: Calcium Carb/Vitamin D 1 TABLET Tablet PO (05:27)
[2020-01-23] MEDS: Acetaminophen 500 MG Tablet 1000 MG PO ×3 (05:27→21:37)
[2020-01-23] MEDS: Fluticasone/Salmeterol 232-14 Inhaler 1 PUFF IH ×2 (05:28→17:04)
[2020-01-23] MEDS: azaTHIOprine 50 MG Tablet PO (07:57)
[2020-01-23] MEDS: Aspirin 81 MG TAB.CHEW PO (07:57)
--- NOTE | 2020-01-23 09:21 | NURSING ---
pt left floor at approx 0800 for blood transfusion
--- NOTE | 2020-01-23 13:50 | PHA.CONS_ITS ---
<Linda Lutz M - Last Filed: 01/23/20 13:50> Progress Note - Pharmacy Subjective: [] Objective: Allergies No Known Allergies Allergy (Verified 01/15/20 16:49) Current Medications Generic Name Dose Route Start Last Admin Trade Name Freq PRN Reason Stop Dose Admin Acetaminophen 1,000 mg 01/22/20 22:00 01/23/20 05:27 Acetaminophen 500 Mg Tablet PO 1,000 mg TID SHEYLA Administration Albuterol Sulfate 1 puff 01/21/20 23:24 Albuterol Sulfate 8 Gm Inhaler (60 Puffs) INHALATION Q6H PRN PRN WHEEZING Alendronate Sodium 70 mg 01/30/20 07:00 Alendronate Sodium 70 Mg Tablet PO Q7D@0700 [facility] Aspirin 81 mg 01/22/20 08:00 01/23/20 07:57 Aspirin 81 Mg Tab.Chew PO 81 mg DAILY@0800 SHEYLA Administration Atorvastatin Calcium 80 mg 01/22/20 22:00 01/22/20 20:53 Atorvastatin Calcium 80 Mg Tablet PO 80 mg QHS [facility] Administration Azathioprine 50 mg 01/22/20 08:00 01/23/20 07:57 Azathioprine 50 Mg Tablet PO 50 mg DAILY@0800 [facility] Administration Calcium/Vitamin D 1 tablet 01/22/20 06:00 01/23/20 05:27 Calcium Carb/Vitamin D 1 Tablet Tablet PO 1 tablet DAILY SHEYLA Administration Citalopram Hydrobromide 40 mg 01/23/20 22:00 Citalopram 40 Mg Tablet PO QHS [facility] Clopidogrel Bisulfate 75 mg 01/22/20 06:00 01/23/20 05:26 Clopidogrel Bisulfate 75 Mg Tablet PO 75 mg DAILY SHEYLA Administration Cyclobenzaprine HCl 10 mg 01/21/20 23:24 Cyclobenzaprine Hcl 10 Mg Tablet PO TID PRN PRN Muscle Spasms Lisinopril 40 mg 01/22/20 06:00 01/23/20 05:26 Lisinopril 40 Mg Tablet PO 40 mg DAILY SHEYLA Administration Loperamide HCl 2 mg 01/21/20 23:24 Loperamide 2 Mg Capsule PO Q6H PRN PRN Diarrhea Loratadine 10 mg 01/22/20 06:00 01/23/20 05:26 Loratadine 10 Mg Tablet PO 10 mg DAILY SHEYLA Administration Metoprolol Succinate 50 mg 01/22/20 06:00 01/23/20 05:26 Metoprolol(Xl)Succ 50 Mg Tablet PO 50 mg DAILY SHEYLA Administration Oxycodone HCl 5 mg 01/21/20 23:24 01/22/20 10:44 Oxycodone 5 Mg Tablet PO 5 mg Q4H PRN PRN Administration Pain Score 4-10 Pramipexole Dihydrochloride 0.5 mg 01/22/20 22:00 01/22/20 20:54 Pramipexole Di-Hcl 0.5 Mg Tablet PO 0.5 mg QHS SHEYLA Administration Fluticasone/Salmeterol 1 puff 01/22/20 06:00 01/23/20 05:28 Fluticasone/Salmeterol 232-14 Inhaler IH 1 puff Q12 SHEYLA Administration Tuberculin PPD 5 tu 01/30/20 10:00 Tuberculin,Purif.Prot.Deriv. 50 Tu/Ml Vial ID 01/30/20 10:01 X1 ONE Problem List (Last Updated 08/21/18 @ 12:[address] Carla Sun MD) Debility (Acute) Fall (Acute) Systemic lupus (Chronic) Fracture of left tibial plateau (Acute) Multiple falls (Chronic) Iron deficiency anemia (Chronic) Osteoporosis (Chronic) Pelvis fracture (Chronic) Crohn's disease (Chronic) Hyperlipidemia (Chronic) Depression (Chronic) Tobacco abuse (Chronic) Microscopic colitis (Chronic) CVA (cerebral vascular accident) (Chronic) HTN (hypertension) (Chronic) COPD (chronic obstructive pulmonary disease) (Chronic) Vital Signs Temp Pulse Resp BP Pulse Ox 98.4 F 63 18 172/79 H 97 01/23/20 05:00 01/23/20 05:26 01/23/20 05:00 01/23/20 05:26 01/23/20 05:00 Oxygen Flow Rate (L/min) 2 Oxygen Delivery Method Nasal Cannula Weight: 57.2 kg Body Mass Index (BMI) 23.1 Finger Stick Blood Glucose 90 Sodium 135 mmol/L (136-145) L 01/22/20 05:10 Potassium 4.2 mmol/L (3.5-5.1) 01/22/20 05:10 Chloride 106 mmol/L (98-107) 01/22/20 05:10 Carbon Dioxide 24.0 mmol/L (21.0-32.0) 01/22/20 05:10 Anion Gap 5 (5-15) 01/22/20 05:10 BUN 21 mg/dL (7-18) H 01/22/20 05:10 Creatinine 0.79 mg/dL (0.55-1.02) 01/22/20 05:10 Est GFR (MDRD) Af Amer 94 mL/min (>60) 01/22/20 05:10 Est GFR (MDRD) Non-Af 77 mL/min (>60) 01/22/20 05:10 BUN/Creatinine Ratio 26.7 RATIO (10-20) H 01/22/20 05:10 Glucose 92 mg/dL (74-106) 01/22/20 05:10 Assessment/Plan: 1. Pain: Tylenol 1000mg PO TID, Oxycodone 5mg PO Q4h PRN pain 4-12/12. Please continue to monitor for increased/decreased S/S pain, PRN medication usage. 2. Stroke: Aspirin 81mg PO Daily, Lipitor 80mg PO QHS, Plavix 75mg PO Daily. Please continue to monitor for S/S recurrent stroke, S/S bleeding/bruising, lipid panel annually or sooner if clinically indicated. 3. Hypertension: Lisinopril 40mg PO Daily, Toprol XL 50mg PO Daily. Please continue to monitor electrolytes, renal function, BP, pulse. 4. COPD: AirDuo 232-14 Diskus 1 puff INH BID, Ventolin inhaler 1 puff Q6h PRN wheezing. Please continue to monitor for S/S exacerbations, PRN medication use. 5. Chron's Disease: Azathioprine 50mg PO Daily. Please continue to monitor for progression of disease, improvement in symptoms. 6. RLS: Mirapex 0.5mg PO QHS. Please continue to monitor for minimization of patient's symptoms/ medication effectiveness. 7. Muscle Spasm: Flexeril 10mg PO TID PRN. Please continue to monitor for improvement in symptoms. 8. Osteoporosis: [id number] PO Weekly. Please monitor for correct medication administration including post-admin monitoring to ensure pt remains upright after medication given. 9. Calcium Deficiency: Os-Rory+D 1 tab PO Daily. Please continue to monitor. 10. Seasonal Allergies: Claritin 10mg PO Daily. Please continue to monitor for minimization of patient symptoms. Psychotropic Medications: *11. Depression: Citalopram 40mg PO Daily. Please consider a GDR by 07/2020 if clinically indicated, thank you. Unnecessary Medications: None Bowel Regimen: Loperamide 2mg PO Q6h PRN. Please continue to monitor for medication effectiveness, constipation. Date of Note:: 01/23/20 - Provider Comments Provider responsibility: Provider responsible to enter orders to implement recommendations <Hair Lan Chi - Last Filed: 01/23/20 17:46> Progress Note - Pharmacy Subjective: [] Objective: Allergies No Known Allergies Allergy (Verified 01/15/20 16:49) Current Medications Generic Name Dose Route Start Last Admin Trade Name Freq PRN Reason Stop Dose Admin Acetaminophen 1,000 mg 01/22/20 22:00 01/23/20 14:53 Acetaminophen 500 Mg Tablet PO 1,000 mg TID SHEYLA Administration Albuterol Sulfate 1 puff 01/21/20 23:24 Albuterol Sulfate 8 Gm Inhaler (60 Puffs) INHALATION Q6H PRN PRN WHEEZING Alendronate Sodium 70 mg 01/30/20 07:00 Alendronate Sodium 70 Mg Tablet PO Q7D@0700 SHEYLA Aspirin 81 mg 01/22/20 08:00 01/23/20 07:57 Aspirin 81 Mg Tab.Chew PO 81 mg DAILY@0800 SHEYLA Administration Atorvastatin Calcium 80 mg 01/22/20 22:00 01/22/20 20:53 Atorvastatin Calcium 80 Mg Tablet PO 80 mg QHS SHEYLA Administration Azathioprine 50 mg 01/22/20 08:00 01/23/20 07:57 Azathioprine 50 Mg Tablet PO 50 mg DAILY@0800 SHEYLA Administration Calcium/Vitamin D 1 tablet 01/22/20 06:00 01/23/20 05:27 Calcium Carb/Vitamin D 1 Tablet Tablet PO 1 tablet DAILY SHEYLA Administration Citalopram Hydrobromide 40 mg 01/23/20 22:00 Citalopram 40 Mg Tablet PO QHS SHEYLA Clopidogrel Bisulfate 75 mg 01/22/20 06:00 01/23/20 05:26 Clopidogrel Bisulfate 75 Mg Tablet PO 75 mg DAILY SHEYLA Administration Cyclobenzaprine HCl 10 mg 01/21/20 23:24 Cyclobenzaprine Hcl 10 Mg Tablet PO TID PRN PRN Muscle Spasms Lisinopril 40 mg 01/22/20 06:00 01/23/20 05:26 Lisinopril 40 Mg Tablet PO 40 mg DAILY SHEYLA Administration Loperamide HCl 2 mg 01/21/20 23:24 Loperamide 2 Mg Capsule PO Q6H PRN PRN Diarrhea Loratadine 10 mg 01/22/20 06:00 01/23/20 05:26 Loratadine 10 Mg Tablet PO 10 mg DAILY SHEYLA Administration Metoprolol Succinate 50 mg 01/22/20 06:00 01/23/20 05:26 Metoprolol(Xl)Succ 50 Mg Tablet PO 50 mg DAILY SHEYLA Administration Oxycodone HCl 5 mg 01/21/20 23:24 01/23/20 17:06 Oxycodone 5 Mg Tablet PO 5 mg Q4H PRN PRN Administration Pain Score 4-10 Pramipexole Dihydrochloride 0.5 mg 01/22/20 22:00 01/22/20 20:54 Pramipexole Di-Hcl 0.5 Mg Tablet PO 0.5 mg QHS SHEYLA Administration Fluticasone/Salmeterol 1 puff 01/22/20 06:00 01/23/20 17:04 Fluticasone/Salmeterol 232-14 Inhaler IH 1 puff Q12 SHEYLA Administration Tuberculin PPD 5 tu 01/30/20 10:00 Tuberculin,Purif.Prot.Deriv. 50 Tu/Ml Vial ID 01/30/20 10:01 X1 ONE Problem List (Last Updated 08/21/18 @ 12:[address] Carla Sun MD) Debility (Acute) Fall (Acute) Systemic lupus (Chronic) Fracture of left tibial plateau (Acute) Multiple falls (Chronic) Iron deficiency anemia (Chronic) Osteoporosis (Chronic) Pelvis fracture (Chronic) Crohn's disease (Chronic) Hyperlipidemia (Chronic) Depression (Chronic) Tobacco abuse (Chronic) Microscopic colitis (Chronic) CVA (cerebral vascular accident) (Chronic) HTN (hypertension) (Chronic) COPD (chronic obstructive pulmonary disease) (Chronic) Vital Signs Temp Pulse Resp BP Pulse Ox 97.9 F 62 18 160/81 H 100 01/23/20 14:54 01/23/20 14:54 01/23/20 14:54 01/23/20 14:54 01/23/20 14:54 Oxygen Flow Rate (L/min) 2 Oxygen Delivery Method Nasal Cannula Weight: 57.2 kg Body Mass Index (BMI) 23.1 Finger Stick Blood Glucose 90 Sodium 135 mmol/L (136-145) L 01/22/20 05:10 Potassium 4.2 mmol/L (3.5-5.1) 01/22/20 05:10 Chloride 106 mmol/L (98-107) 01/22/20 05:10 Carbon Dioxide 24.0 mmol/L (21.0-32.0) 01/22/20 05:10 Anion Gap 5 (5-15) 01/22/20 05:10 BUN 21 mg/dL (7-18) H 01/22/20 05:10 Creatinine 0.79 mg/dL (0.55-1.02) 01/22/20 05:10 Est GFR (MDRD) Af Amer 94 mL/min (>60) 01/22/20 05:10 Est GFR (MDRD) Non-Af 77 mL/min (>60) 01/22/20 05:10 BUN/Creatinine Ratio 26.7 RATIO (10-20) H 01/22/20 05:10 Glucose 92 mg/dL (74-106) 01/22/20 05:10 Assessment/Plan: Psychotropic Medications: Unnecessary Medications: Bowel Regimen: - Provider Comments Provider responsibility: Provider responsible to enter orders to implement recommendations Provider Comments to Recommendations by Pharmacy: Agree
--- NOTE | 2020-01-23 14:46 | NURSING ---
pt back from infusion center at this time
[2020-01-23 14:54] VITALS: BP 160/81; PULSE 62; RESP 18; TEMP 36.6; O2SAT 100
[2020-01-23] MEDS: oxyCODONE 5 MG Tablet PO (17:06)
[2020-01-23] MEDS: Atorvastatin Calcium 80 MG Tablet PO (21:37)
[2020-01-23] MEDS: Citalopram 40 MG TABLET PO (21:37)
[2020-01-23] MEDS: Pramipexole Di-HCl 0.5 MG Tablet PO (22:16)
[2020-01-23 22:26] VITALS: PULSE 72; RESP 18; O2SAT 97
[2020-01-24 05:00] VITALS: BP 175/99; PULSE 70; RESP 18; TEMP 36.7; O2SAT 96
[2020-01-24] MEDS: Clopidogrel Bisulfate 75 MG Tablet PO (05:26)
[2020-01-24] MEDS: Fluticasone/Salmeterol 232-14 Inhaler 1 PUFF IH ×2 (05:26→17:15)
[2020-01-24] MEDS: Calcium Carb/Vitamin D 1 TABLET Tablet PO (05:26)
[2020-01-24] MEDS: Acetaminophen 500 MG Tablet 1000 MG PO ×3 (05:26→21:21)
[2020-01-24] MEDS: Loratadine 10 MG Tablet PO (05:26)
[2020-01-24] MEDS: Lisinopril 40 MG Tablet PO ×2 (05:26→18:44)
[2020-01-24 05:27] VITALS: BP 175/99; PULSE 70
[2020-01-24] MEDS: Metoprolol(XL)Succ 50 MG Tablet PO (05:27)
[2020-01-24 08:53] VITALS: BP 137/77; PULSE 73
[2020-01-24] MEDS: azaTHIOprine 50 MG Tablet PO (08:54)
[2020-01-24] MEDS: Aspirin 81 MG TAB.CHEW PO (08:54)
[2020-01-24 09:04] LABS: Hemoglobin 11.9 g/dL (12.0-15.0)
[2020-01-24 10:00] VITALS: PULSE 64; RESP 18; O2SAT 98
[2020-01-24 14:14] VITALS: BP 153/76; PULSE 62; RESP 17; TEMP 36.6; O2SAT 98
[2020-01-24] MEDS: oxyCODONE 5 MG Tablet PO (14:18)
[2020-01-24 16:16] VITALS: O2SAT 98
--- NOTE | 2020-01-24 17:52 | NURSING ---
dr turcios notified of elevated BPs, pt reports that she takes lisinopril BID, not once a day per orders here. she also states she takes HCTZ 25mg daily. new order to increase lisinopril but hold off on HCTZ for now.
[2020-01-24] MEDS: Citalopram 40 MG TABLET PO (21:23)
[2020-01-24] MEDS: Atorvastatin Calcium 80 MG Tablet PO (21:23)
[2020-01-24] MEDS: Pramipexole Di-HCl 0.5 MG Tablet PO (21:23)
[2020-01-25 05:00] VITALS: BP 167/93; PULSE 70; RESP 18; TEMP 36.6; O2SAT 97
[2020-01-25] MEDS: Clopidogrel Bisulfate 75 MG Tablet PO (06:34)
[2020-01-25] MEDS: Lisinopril 40 MG Tablet PO ×2 (06:34→17:02)
[2020-01-25 06:35] VITALS: BP 167/93; PULSE 70
[2020-01-25] MEDS: Metoprolol(XL)Succ 50 MG Tablet PO (06:35)
[2020-01-25] MEDS: Acetaminophen 500 MG Tablet 1000 MG PO ×3 (06:35→19:51)
[2020-01-25] MEDS: Loratadine 10 MG Tablet PO (06:35)
[2020-01-25] MEDS: Calcium Carb/Vitamin D 1 TABLET Tablet PO (06:35)
[2020-01-25] MEDS: Fluticasone/Salmeterol 232-14 Inhaler 1 PUFF IH ×2 (06:36→17:02)
[2020-01-25] MEDS: Aspirin 81 MG TAB.CHEW PO (07:58)
[2020-01-25] MEDS: azaTHIOprine 50 MG Tablet PO (07:58)
[2020-01-25 13:28] VITALS: O2SAT 97
[2020-01-25 14:25] VITALS: BP 166/88; PULSE 61; RESP 16; TEMP 37.1; O2SAT 98
--- NOTE | 2020-01-25 15:04 | NURSING ---
pt requesting nicotine patch, dr turcios notified, new order obtained
[2020-01-25] MEDS: Atorvastatin Calcium 80 MG Tablet PO (19:51)
[2020-01-25] MEDS: Citalopram 40 MG TABLET PO (19:51)
[2020-01-25] MEDS: Pramipexole Di-HCl 0.5 MG Tablet PO (19:52)
[2020-01-26 05:00] VITALS: BP 158/82; PULSE 66; RESP 18; TEMP 36.7; O2SAT 98
[2020-01-26] MEDS: Acetaminophen 500 MG Tablet 1000 MG PO ×3 (06:27→21:27)
[2020-01-26] MEDS: Calcium Carb/Vitamin D 1 TABLET Tablet PO (06:27)
[2020-01-26] MEDS: Fluticasone/Salmeterol 232-14 Inhaler 1 PUFF IH ×2 (06:27→17:22)
[2020-01-26 06:28] VITALS: BP 158/82; PULSE 66
[2020-01-26] MEDS: Clopidogrel Bisulfate 75 MG Tablet PO (06:28)
[2020-01-26] MEDS: Metoprolol(XL)Succ 50 MG Tablet PO (06:28)
[2020-01-26] MEDS: Loratadine 10 MG Tablet PO (06:29)
[2020-01-26] MEDS: Lisinopril 40 MG Tablet PO ×2 (06:29→17:23)
[2020-01-26 06:49] VITALS: O2SAT 98
[2020-01-26] MEDS: Aspirin 81 MG TAB.CHEW PO (08:08)
[2020-01-26] MEDS: azaTHIOprine 50 MG Tablet PO (08:08)
[2020-01-26] MEDS: oxyCODONE 5 MG Tablet PO ×2 (09:08→14:07)
[2020-01-26 10:00] VITALS: PULSE 64; RESP 18; O2SAT 98
[2020-01-26 13:40] VITALS: BP 155/78; PULSE 68; RESP 17; TEMP 36.6; O2SAT 98
--- NOTE | 2020-01-26 14:29 | CASEMGMT ---
Social Work Spoke with pt's NAHUN Manjarrez whom is to be the new contact center representative. Pt provided permission as did Carolina, whom was previously listed. She is moving to [place] for the winter. Pt lives with NAHUN and dtr and they would be the best people to assist pt. NAHUN expressed concerns with pt returning home with them. Dtr and NAHUN both work and she would need to be mobile to be safe essentially alone during the day. NAHUN inquired about alternative DC plans. Explained SNF and AL options, which would be private pay. NAHUN unsure of financial situation. Explained Medicaid. Emailed list of SNFs, ALs, and [facility] sveta, along with list of eligibility criteria for [facility] for NAHUN to provide to SW to determine if pt is eligible or spend down needs to happen first. Son appreciative of information. Care plan meeting scheduled 01/26. Will continue to follow. FERNY LealW
[2020-01-26] MEDS: Citalopram 40 MG TABLET PO (21:28)
[2020-01-26] MEDS: Pramipexole Di-HCl 0.5 MG Tablet PO (21:28)
[2020-01-26] MEDS: Atorvastatin Calcium 80 MG Tablet PO (21:28)
[2020-01-27] MEDS: oxyCODONE 5 MG Tablet PO ×3 (03:50→20:33)
[2020-01-27 04:33] VITALS: BP 155/92; PULSE 67; RESP 18; TEMP 36.8; O2SAT 97
[2020-01-27 04:40] VITALS: BP 155/92; PULSE 67
[2020-01-27] MEDS: Metoprolol(XL)Succ 50 MG Tablet PO (04:40)
[2020-01-27] MEDS: Fluticasone/Salmeterol 232-14 Inhaler 1 PUFF IH ×2 (04:40→17:14)
[2020-01-27] MEDS: Calcium Carb/Vitamin D 1 TABLET Tablet PO (04:41)
[2020-01-27] MEDS: Loratadine 10 MG Tablet PO (04:41)
[2020-01-27] MEDS: Acetaminophen 500 MG Tablet 1000 MG PO ×3 (04:41→20:34)
[2020-01-27] MEDS: Clopidogrel Bisulfate 75 MG Tablet PO (04:41)
[2020-01-27] MEDS: Lisinopril 40 MG Tablet PO ×2 (04:41→17:16)
[2020-01-27] MEDS: azaTHIOprine 50 MG Tablet PO (08:23)
[2020-01-27] MEDS: Aspirin 81 MG TAB.CHEW PO (08:23)
--- NOTE | 2020-01-27 09:47 | CASEMGMT ---
Social Work IDT met with patient and NAHUN via conference call for Team meeting. Discussed patient's progress in therapy. Pt is mod for SPT with FWW, NWBS on LLE for 10 weeks, and not able to do hopping r/t pelvic fx. Pt is seated supervised for grooming, SBA while seated for UE ADLs, max for LE ADLS, toileting and tasks. Using 1lb wts for exercises. Pt is on a regular diet, receiving ensure and intake variable. Pt is out of isolation 02/03, using O2 currently. Pt has f/u appt with ortho on 02/03. Explained [employer] insurance with [employer] 01/29 and continued stay is not guaranteed. Explained insurance will not keep patient for 10 weeks and it is good to discuss alternative DC plans. Pt lives at home with NAHUN and dtr, but both work. For pt to return home, pt would need to be able to independently tx and complete toileting tasks, and okay to be home alone at times. Encouraged getting ramp to enter home and making first floor w/c accessible, since there are no walking goals for pt. Pt and NAHUN realistic to pt's condition and DC options. Emailed private duty HHC list to NAHUN to get more help at home. Will continue to follow. Zaida Clark, RETAIL MORTGAGE BANKER WRECKER OPERATOR
--- NOTE | 2020-01-27 10:45 | PT ---
Addendum entered by Megan Ramesh 01/27/20 10:55: Spoke with orthopedic surgeon. Per surgeon, pt is now allowed PROM to L knee. Pt is to keep LLE straight in bed and should not use pillows under her L knee. Pillows under ankles okay. Pt does not need knee immobilizer. Original Note: Called [facility] and left message for pt's surgeon regarding clarification on orders for pt. Pt is NWB on LLE and is not allowed any ROM to L knee. Pt stated she was previously wearing a knee immobilizer at [facility] but does not have a knee immobilizer here. Waiting for return call from physician to determine if pt needs knee immobilizer.
[2020-01-27 13:10] VITALS: BP 148/70; PULSE 74; RESP 17; TEMP 37; O2SAT 95
--- NOTE | 2020-01-27 13:30 | NURSING ---
Resident and family notified of staff member testing positive for COVID.
--- NOTE | 2020-01-27 14:18 | NURSING ---
PT APPOINTMENT IS NOW CHANGED TO A VIDEO CALL ON 02/04/2020 AT 2:30PM AND A RN MUST BE PRESENT. DR OFFICE WILL FAX OVER X RAY ORDERS TO BE DONE BEFORE APPOINTMENT. RN AWARE.
--- NOTE | 2020-01-27 14:45 | NURSING ---
PT STATED SHE UPDATES FAMILY EVERY DAY.
[2020-01-27] MEDS: amLODIPine 5 MG Tablet PO (15:15)
[2020-01-27 15:32] VITALS: O2SAT 94
--- NOTE | 2020-01-27 15:59 | NURSING ---
NICOTINE PATCH VERIFIED TO RIGHT DELT.
[2020-01-27] MEDS: MELATONIN 10 MG TABLET PO (20:35)
[2020-01-27] MEDS: Atorvastatin Calcium 80 MG Tablet PO (20:35)
[2020-01-27] MEDS: Citalopram 40 MG TABLET PO (20:35)
[2020-01-27] MEDS: Pramipexole Di-HCl 0.5 MG Tablet PO (20:35)
[2020-01-27 21:00] VITALS: PULSE 70; RESP 18; O2SAT 97
[2020-01-28 05:00] VITALS: BP 149/82; PULSE 72; RESP 16; TEMP 36.7; O2SAT 98
[2020-01-28 05:44] VITALS: BP 149/82; PULSE 72
[2020-01-28] MEDS: amLODIPine 5 MG Tablet PO (05:44)
[2020-01-28] MEDS: Metoprolol(XL)Succ 50 MG Tablet PO (05:44)
[2020-01-28] MEDS: Lisinopril 40 MG Tablet PO ×2 (05:44→17:11)
[2020-01-28] MEDS: Clopidogrel Bisulfate 75 MG Tablet PO (05:44)
[2020-01-28] MEDS: Loratadine 10 MG Tablet PO (05:44)
[2020-01-28] MEDS: Acetaminophen 500 MG Tablet 1000 MG PO ×3 (05:44→21:33)
[2020-01-28] MEDS: Calcium Carb/Vitamin D 1 TABLET Tablet PO (05:45)
[2020-01-28] MEDS: Fluticasone/Salmeterol 232-14 Inhaler 1 PUFF IH ×2 (05:49→17:12)
[2020-01-28] MEDS: Aspirin 81 MG TAB.CHEW PO (08:29)
[2020-01-28] MEDS: azaTHIOprine 50 MG Tablet PO (08:29)
[2020-01-28 10:00] VITALS: PULSE 71; RESP 18; O2SAT 95
[2020-01-28 14:12] VITALS: BP 156/79; PULSE 90; RESP 20; TEMP 36.4; O2SAT 97
[2020-01-28] MEDS: oxyCODONE 5 MG Tablet PO (17:14)
[2020-01-28] MEDS: Atorvastatin Calcium 80 MG Tablet PO (21:33)
[2020-01-28] MEDS: Citalopram 40 MG TABLET PO (21:33)
[2020-01-28] MEDS: MELATONIN 10 MG TABLET PO (21:33)
[2020-01-28] MEDS: Pramipexole Di-HCl 0.5 MG Tablet PO (21:33)
[2020-01-29] MEDS: oxyCODONE 5 MG Tablet PO (03:14)
[2020-01-29 05:00] VITALS: BP 154/81; PULSE 68; RESP 18; TEMP 36.7; O2SAT 96
[2020-01-29] MEDS: Fluticasone/Salmeterol 232-14 Inhaler 1 PUFF IH ×2 (05:27→17:02)
[2020-01-29 05:29] VITALS: BP 154/81; PULSE 68
[2020-01-29] MEDS: Calcium Carb/Vitamin D 1 TABLET Tablet PO (05:29)
[2020-01-29] MEDS: amLODIPine 5 MG Tablet PO (05:29)
[2020-01-29] MEDS: Acetaminophen 500 MG Tablet 1000 MG PO ×3 (05:29→20:16)
[2020-01-29] MEDS: Lisinopril 40 MG Tablet PO ×2 (05:29→17:02)
[2020-01-29] MEDS: Metoprolol(XL)Succ 50 MG Tablet PO (05:29)
[2020-01-29] MEDS: Loratadine 10 MG Tablet PO (05:29)
[2020-01-29] MEDS: Clopidogrel Bisulfate 75 MG Tablet PO (05:30)
[2020-01-29 07:08] LABS: Absolute Lymphocyte Count 0.47 X10^3/uL (0.83-4.51); Absolute Neutrophil Count 3.3 X10^3/uL (2.0-7.7); Basophil# 0.03 X10^3/uL; Basophil% 0.7 % (0-1); Eosinophil# 0.15 X10^3/uL; Eosinophils% 3.3 % (0-5); Hematocrit 36.5 % (37-47); Lymphocyte # 0.47 X10^3/ul (4.0); Lymphocyte % 10.4 % (19-41); Mean Corp Hgb Conc 32.9 g/dL (32-36); Mean Corpuscular Hgb 33.9 pg (27.0-32.0); Mean Corpuscular Volume 103.1 fL (81-99); Mean Platelet Vol. 9.4 fl (6.2-12.0); Monocyte# 0.51 X10^3/uL; Monocyte% 11.3 % (0-10); NRBC Flagged by Analyzer 0 % (0-5); Neutrophil # 3.31 X10^3/uL (2.7-7.7); Neutrophil % 73.4 % (47-70); POSITIVE DIFFERENTIAL YES; Platelet Count 278 K/mm3 (150-450); RBC Distribution Width SD 56.5 fl (35.1-43.9); Red Blood Count 3.54 M/mm3 (4.2-5.4); White Blood Count 4.5 K/mm3 (4.4-11.0)
[2020-01-29 07:10] LABS: Differential Indicated SCAN CRITERIA MET
[2020-01-29 07:29] LABS: Anion Gap 4 (5-15); BUN 24 mg/dL (7-18); BUN/Creat Ratio 30.5 RATIO (10-20); Calcium,Total 8.4 mg/dL (8.5-10.1); Chloride 100 mmol/L (98-107); Creatinine, Serum 0.79 mg/dL (0.55-1.02); EST Glomerular Filtration Rate 77 mL/min (>60); Est Glom Filt Rate - Afr Amer 94 mL/min (>60); Estimated Creatinine Clearance 43.18 ml/min; Glucose 85 mg/dL (74-106); Potassium 4.2 mmol/L (3.5-5.1); Sodium Level 131 mmol/L (136-145)
[2020-01-29] MEDS: azaTHIOprine 50 MG Tablet PO (08:21)
[2020-01-29] MEDS: Aspirin 81 MG TAB.CHEW PO (08:21)
[2020-01-29] MEDS: Loperamide 2 MG Capsule PO (12:21)
[2020-01-29 12:47] LABS: Osmolality, Serum 278 mOsm/KG (280-301)
--- NOTE | 2020-01-29 12:57 | NURSING ---
pt stated she up dates family
[2020-01-29 14:04] VITALS: BP 141/67; PULSE 71; RESP 18; TEMP 36.4; O2SAT 97
[2020-01-29 14:19] LABS: Urine Sodium 103 mmol/L (Not Establ.)
[2020-01-29 14:23] LABS: Osmolality, Urine 518 mOsm/KG
--- NOTE | 2020-01-29 15:43 | NURSING ---
dr Lan aware of sodium level lab and urine. new order for fluid restriction of 1500cc, recheck BMP 01/30
[2020-01-29] MEDS: Citalopram 40 MG TABLET PO (20:14)
[2020-01-29] MEDS: MELATONIN 10 MG TABLET PO (20:15)
[2020-01-29] MEDS: Pramipexole Di-HCl 0.5 MG Tablet PO (20:16)
[2020-01-29] MEDS: Atorvastatin Calcium 80 MG Tablet PO (20:16)
[2020-01-29 23:05] VITALS: PULSE 68; RESP 18; O2SAT 98
[2020-01-30 05:00] VITALS: BP 156/82; PULSE 67; RESP 16; TEMP 37.3; O2SAT 97
[2020-01-30] MEDS: Fluticasone/Salmeterol 232-14 Inhaler 1 PUFF IH ×2 (05:42→17:38)
[2020-01-30] MEDS: Loratadine 10 MG Tablet PO (05:43)
[2020-01-30] MEDS: Acetaminophen 500 MG Tablet 1000 MG PO ×3 (05:43→20:30)
[2020-01-30 05:44] VITALS: BP 156/82; PULSE 67
[2020-01-30] MEDS: amLODIPine 5 MG Tablet PO (05:44)
[2020-01-30] MEDS: Lisinopril 40 MG Tablet PO ×2 (05:44→17:39)
[2020-01-30] MEDS: Metoprolol(XL)Succ 50 MG Tablet PO (05:44)
[2020-01-30] MEDS: Clopidogrel Bisulfate 75 MG Tablet PO (05:44)
[2020-01-30] MEDS: Calcium Carb/Vitamin D 1 TABLET Tablet PO (05:44)
[2020-01-30] MEDS: Alendronate Sodium 70 MG Tablet PO (05:51)
[2020-01-30] MEDS: Aspirin 81 MG TAB.CHEW PO (08:14)
[2020-01-30] MEDS: azaTHIOprine 50 MG Tablet PO (08:14)
[2020-01-30 10:00] VITALS: PULSE 65; RESP 18; O2SAT 95
[2020-01-30] MEDS: Tuberculin,Purif.prot.deriv. 50 TU/ML Vial 5 ML ID (10:37)
[2020-01-30] MEDS: Albuterol Sulfate 8 gm Inhaler (60 puffs) 1 PUFF INHALATION (10:55)
[2020-01-30 13:46] VITALS: BP 140/70; PULSE 66; RESP 14; TEMP 35.6; O2SAT 98
[2020-01-30] MEDS: Atorvastatin Calcium 80 MG Tablet PO (20:29)
[2020-01-30] MEDS: Pramipexole Di-HCl 0.5 MG Tablet PO (20:30)
[2020-01-30] MEDS: Citalopram 40 MG TABLET PO (20:31)
[2020-01-30] MEDS: MELATONIN 10 MG TABLET PO (20:31)
[2020-01-31 05:09] VITALS: BP 161/82; PULSE 65; RESP 16; TEMP 36.6; O2SAT 97
[2020-01-31] MEDS: Loratadine 10 MG Tablet PO (05:12)
[2020-01-31] MEDS: amLODIPine 5 MG Tablet PO (05:12)
[2020-01-31] MEDS: Calcium Carb/Vitamin D 1 TABLET Tablet PO (05:12)
[2020-01-31 05:13] VITALS: PULSE 65
[2020-01-31] MEDS: Acetaminophen 500 MG Tablet 1000 MG PO ×3 (05:13→20:47)
[2020-01-31] MEDS: Lisinopril 40 MG Tablet PO ×2 (05:13→17:24)
[2020-01-31] MEDS: Clopidogrel Bisulfate 75 MG Tablet PO (05:13)
[2020-01-31] MEDS: Metoprolol(XL)Succ 50 MG Tablet PO (05:13)
[2020-01-31] MEDS: Fluticasone/Salmeterol 232-14 Inhaler 1 PUFF IH ×2 (05:16→17:23)
[2020-01-31 07:58] VITALS: O2SAT 98
[2020-01-31 08:08] LABS: Anion Gap 5 (5-15); BUN 25 mg/dL (7-18); BUN/Creat Ratio 31.6 RATIO (10-20); Calcium,Total 8.6 mg/dL (8.5-10.1); Chloride 100 mmol/L (98-107); Creatinine, Serum 0.79 mg/dL (0.55-1.02); EST Glomerular Filtration Rate 77 mL/min (>60); Est Glom Filt Rate - Afr Amer 93 mL/min (>60); Estimated Creatinine Clearance 43.18 ml/min; Glucose 84 mg/dL (74-106); Potassium 4.2 mmol/L (3.5-5.1); Sodium Level 132 mmol/L (136-145)
[2020-01-31] MEDS: azaTHIOprine 50 MG Tablet PO (08:26)
[2020-01-31] MEDS: Aspirin 81 MG TAB.CHEW PO (08:26)
[2020-01-31] MEDS: oxyCODONE 5 MG Tablet PO (09:41)
[2020-01-31 12:50] VITALS: BP 141/75; PULSE 68; RESP 18; TEMP 36.7; O2SAT 98
[2020-01-31] MEDS: Pramipexole Di-HCl 0.5 MG Tablet PO (20:47)
[2020-01-31] MEDS: Citalopram 40 MG TABLET PO (20:47)
[2020-01-31] MEDS: Atorvastatin Calcium 80 MG Tablet PO (20:47)
[2020-01-31] MEDS: MELATONIN 10 MG TABLET PO (20:47)
[2020-02-01 05:00] VITALS: BP 147/76; PULSE 74; RESP 16; TEMP 36.6; O2SAT 99
[2020-02-01 05:20] VITALS: PULSE 74
[2020-02-01] MEDS: Metoprolol(XL)Succ 50 MG Tablet PO (05:20)
[2020-02-01] MEDS: amLODIPine 5 MG Tablet PO (05:20)
[2020-02-01] MEDS: Calcium Carb/Vitamin D 1 TABLET Tablet PO (05:20)
[2020-02-01] MEDS: Acetaminophen 500 MG Tablet 1000 MG PO ×3 (05:20→21:44)
[2020-02-01] MEDS: Lisinopril 40 MG Tablet PO ×2 (05:20→17:20)
[2020-02-01] MEDS: Clopidogrel Bisulfate 75 MG Tablet PO (05:20)
[2020-02-01] MEDS: Loratadine 10 MG Tablet PO (05:20)
[2020-02-01] MEDS: Fluticasone/Salmeterol 232-14 Inhaler 1 PUFF IH ×2 (05:22→17:20)
[2020-02-01] MEDS: azaTHIOprine 50 MG Tablet PO (07:50)
[2020-02-01] MEDS: Aspirin 81 MG TAB.CHEW PO (07:50)
[2020-02-01 09:35] VITALS: PULSE 72; RESP 18; O2SAT 97
[2020-02-01 13:02] VITALS: BP 153/75; PULSE 66; RESP 18; TEMP 36.3; O2SAT 96
[2020-02-01] MEDS: Loperamide 2 MG Capsule PO (17:22)
[2020-02-01] MEDS: MELATONIN 10 MG TABLET PO (21:43)
[2020-02-01] MEDS: Citalopram 40 MG TABLET PO (21:44)
[2020-02-01] MEDS: Pramipexole Di-HCl 0.5 MG Tablet PO (21:44)
[2020-02-01] MEDS: Atorvastatin Calcium 80 MG Tablet PO (21:44)
[2020-02-02 04:09] VITALS: BP 156/93; PULSE 67; RESP 16; TEMP 36.8; O2SAT 98
[2020-02-02] MEDS: Fluticasone/Salmeterol 232-14 Inhaler 1 PUFF IH ×2 (06:02→17:21)
[2020-02-02 06:03] VITALS: PULSE 67
[2020-02-02] MEDS: Metoprolol(XL)Succ 50 MG Tablet PO (06:03)
[2020-02-02] MEDS: Clopidogrel Bisulfate 75 MG Tablet PO (06:03)
[2020-02-02] MEDS: Calcium Carb/Vitamin D 1 TABLET Tablet PO (06:03)
[2020-02-02] MEDS: Loratadine 10 MG Tablet PO (06:03)
[2020-02-02] MEDS: amLODIPine 5 MG Tablet PO (06:03)
[2020-02-02] MEDS: Lisinopril 40 MG Tablet PO ×2 (06:03→17:20)
[2020-02-02] MEDS: Acetaminophen 500 MG Tablet 1000 MG PO ×3 (06:03→20:35)
[2020-02-02] MEDS: azaTHIOprine 50 MG Tablet PO (08:30)
[2020-02-02] MEDS: Aspirin 81 MG TAB.CHEW PO (08:30)
[2020-02-02 08:33] VITALS: O2SAT 96
[2020-02-02 12:05] VITALS: BP 142/70; PULSE 69; RESP 18; TEMP 36.6; O2SAT 99
--- NOTE | 2020-02-02 14:12 | MDS.RN ---
Information for the mds was obtained from review of the clinical record, interview of resident, staff, and direct observation of resident's care.
[2020-02-02] MEDS: oxyCODONE 5 MG Tablet PO (14:30)
--- NOTE | 2020-02-02 15:20 | NURSING ---
PT STATED SHE UP DATED HER SON.
[2020-02-02] MEDS: Atorvastatin Calcium 80 MG Tablet PO (20:36)
[2020-02-02] MEDS: MELATONIN 10 MG TABLET PO (20:36)
[2020-02-02] MEDS: Citalopram 40 MG TABLET PO (20:37)
[2020-02-02] MEDS: Pramipexole Di-HCl 0.5 MG Tablet PO (20:37)
[2020-02-03 05:00] VITALS: BP 170/86; PULSE 68; RESP 18; TEMP 36.8; O2SAT 96
[2020-02-03 06:26] VITALS: BP 170/86; PULSE 68
[2020-02-03] MEDS: Acetaminophen 500 MG Tablet 1000 MG PO ×3 (06:26→21:51)
[2020-02-03] MEDS: Lisinopril 40 MG Tablet PO ×2 (06:26→17:04)
[2020-02-03] MEDS: Clopidogrel Bisulfate 75 MG Tablet PO (06:26)
[2020-02-03] MEDS: Calcium Carb/Vitamin D 1 TABLET Tablet PO (06:26)
[2020-02-03] MEDS: Metoprolol(XL)Succ 50 MG Tablet PO (06:26)
[2020-02-03] MEDS: amLODIPine 5 MG Tablet PO (06:26)
[2020-02-03] MEDS: Loratadine 10 MG Tablet PO (06:26)
[2020-02-03] MEDS: Fluticasone/Salmeterol 232-14 Inhaler 1 PUFF IH ×2 (06:28→17:04)
[2020-02-03 07:00] VITALS: O2SAT 95
--- NOTE | 2020-02-03 07:30 | RAD_ITS ---
STUDY: X-RAY - LEFT KNEE REASON FOR EXAM: ORIF of tibial plateau fracture. TECHNIQUE: 2 view(s) of the knee. COMPARISON: CT images 01/15/2020. FINDINGS: There is an intramedullary mann in the distal femur. There is an orthopedic plate and screws transfixing a tibial plateau fracture in near-anatomic alignment and position. Normal proximal tibiofibular articulation. Normal medial femorotibial compartment. There is joint space narrowing of the lateral femorotibial compartment. Normal patellofemoral articulation. There is a small joint effusion. RAD/Knee 1 or 2 Views IMPRESSION: Uncomplicated ORIF of tibial plateau fracture. Joint space narrowing of the lateral femorotibial compartment. Small joint effusion. Electronically Signed: Josh Gonzalez MD at 13:18 EST Tel , Service support ,
[2020-02-03] MEDS: azaTHIOprine 50 MG Tablet PO (08:03)
[2020-02-03] MEDS: Aspirin 81 MG TAB.CHEW PO (08:03)
--- NOTE | 2020-02-03 13:55 | NURSING ---
PT STATED SHE UPDATES HER SON DAILY
--- NOTE | 2020-02-03 13:57 | CASEMGMT ---
Social Work Spoke with pt's NAHUN about alternative DC plans due to pts NWBS as insurance update is 02/03. Provided updated level of assist with therapy and explained unsure how much improvement pt can make with limited WBS and how much time the insurance will continue to provide. The pt does have a dr's appt 02/03 with new xrays. NAHUN feels it would be best for pt to transfer to a SNF until she is independent and can return home without needing continuous assistance since he and his both work. Agreed as that is what IDT is recommending. NAHUN has [facility] SNF list but requested [facility] as well. Explained the SNF would need to be in network with insurance so if she can be skilled when WBS increases, the insurance can cover that cost. NAHUN agreed and stated she can pay privately for several months so she shouldn't need to get on Medicaid. NAHUN inquired if SW can speak with pt about recommendation. SW agreed. Will speak with pt. Will continue to follow. Zaida Clark, AGRICULTURAL CROP FARM MANAGER ATHLETIC COORDINATOR
[2020-02-03 21:49] VITALS: PULSE 68; RESP 18; O2SAT 97
[2020-02-03] MEDS: Pramipexole Di-HCl 0.5 MG Tablet PO (21:51)
[2020-02-03] MEDS: MELATONIN 10 MG TABLET PO (21:51)
[2020-02-03] MEDS: Atorvastatin Calcium 80 MG Tablet PO (21:52)
[2020-02-03] MEDS: Citalopram 40 MG TABLET PO (21:52)
[2020-02-04 01:46] VITALS: BP 137/73; PULSE 70; RESP 16; TEMP 37; O2SAT 97
[2020-02-04 04:26] VITALS: PULSE 70
[2020-02-04] MEDS: Metoprolol(XL)Succ 50 MG Tablet PO (04:26)
[2020-02-04] MEDS: Lisinopril 40 MG Tablet PO ×2 (04:26→17:13)
[2020-02-04] MEDS: Acetaminophen 500 MG Tablet 1000 MG PO ×3 (04:26→21:16)
[2020-02-04] MEDS: Loratadine 10 MG Tablet PO (04:26)
[2020-02-04] MEDS: amLODIPine 5 MG Tablet PO (04:26)
[2020-02-04] MEDS: Calcium Carb/Vitamin D 1 TABLET Tablet PO (04:27)
[2020-02-04] MEDS: Fluticasone/Salmeterol 232-14 Inhaler 1 PUFF IH ×2 (04:27→17:10)
[2020-02-04] MEDS: Clopidogrel Bisulfate 75 MG Tablet PO (04:27)
[2020-02-04 06:15] VITALS: O2SAT 96
[2020-02-04] MEDS: Aspirin 81 MG TAB.CHEW PO (08:09)
[2020-02-04] MEDS: azaTHIOprine 50 MG Tablet PO (08:09)
[2020-02-04 10:00] VITALS: PULSE 58; RESP 18; O2SAT 94
[2020-02-04 13:54] VITALS: BP 141/78; PULSE 70; RESP 20; TEMP 36.5; O2SAT 99
--- NOTE | 2020-02-04 14:43 | NURSING ---
pt stated she calls and updates family
--- NOTE | 2020-02-04 16:55 | NURSING ---
PT URINE IS CLEAR BUT STRAW IN COLOR AND SMELLS LIKE ROTTEN FISH. PT DENIED ANY BURNING,PAIN OR ITCHING REPORTED TO RN.
--- NOTE | 2020-02-04 18:27 | NURSING ---
pt and this nurse with rn in room for video chat with Kiarra Yeung/TEO from [facility] on a follow up. pt is still NWB TO LEFT KNEE. PT CAN BEND KNEE TOLERATED WELL IN THERAPY. PT SUTURES CAN COME OUT ONLY IF THERE IS NO DRAINAGE FOR 3 DAYS STRAIGHT. [POSSIBLE 02/07] PT IS TO BE STARTED ON [facility]. THE PA SEEN KNEE BY PHONE AND ASKED FOR FAX NUMBER AND HOSPITAL NAME TO FAX ORDERS AND REQUEST XRAY RESULTS. PA DID STATE THAT IF PT KNEE HAS NO PROGRESSION IN DEGREES SHE WOULD LIKE A CPM MACHINE PUT ON. PA STATED SHE WANTS A FOLLOW UP AGAIN WITH IN A WEEK.
[2020-02-04] MEDS: Atorvastatin Calcium 80 MG Tablet PO (21:16)
[2020-02-04] MEDS: Pramipexole Di-HCl 0.5 MG Tablet PO (21:16)
[2020-02-04] MEDS: Citalopram 40 MG TABLET PO (21:16)
[2020-02-04] MEDS: MELATONIN 10 MG TABLET PO (21:16)
[2020-02-05 05:00] VITALS: BP 153/88; PULSE 69; RESP 18; TEMP 36.6; O2SAT 96
[2020-02-05] MEDS: Fluticasone/Salmeterol 232-14 Inhaler 1 PUFF IH ×2 (05:22→17:05)
[2020-02-05 05:23] VITALS: BP 153/88; PULSE 69
[2020-02-05] MEDS: Calcium Carb/Vitamin D 1 TABLET Tablet PO (05:23)
[2020-02-05] MEDS: Acetaminophen 500 MG Tablet 1000 MG PO ×3 (05:23→20:41)
[2020-02-05] MEDS: Loratadine 10 MG Tablet PO (05:23)
[2020-02-05] MEDS: Metoprolol(XL)Succ 50 MG Tablet PO (05:23)
[2020-02-05] MEDS: Lisinopril 40 MG Tablet PO ×2 (05:23→17:06)
[2020-02-05] MEDS: amLODIPine 5 MG Tablet PO (05:23)
[2020-02-05] MEDS: Clopidogrel Bisulfate 75 MG Tablet PO (05:23)
[2020-02-05] MEDS: Enoxaparin 40 MG/0.4 ML Syringe SC (05:24)
[2020-02-05 05:44] LABS: Absolute Lymphocyte Count 0.44 X10^3/uL (0.83-4.51); Absolute Neutrophil Count 2.1 X10^3/uL (2.0-7.7); Basophil# 0.02 X10^3/uL; Basophil% 0.6 % (0-1); Eosinophil# 0.24 X10^3/uL; Hematocrit 34.4 % (37-47); Hemoglobin 11.1 g/dL (12.0-15.0); Lymphocyte # 0.44 X10^3/ul (4.0); Lymphocyte % 12.9 % (19-41); Mean Corp Hgb Conc 32.3 g/dL (32-36); Mean Corpuscular Hgb 33.1 pg (27.0-32.0); Mean Corpuscular Volume 102.7 fL (81-99); Mean Platelet Vol. 9.4 fl (6.2-12.0); Monocyte# 0.57 X10^3/uL; Monocyte% 16.7 % (0-10); NRBC Flagged by Analyzer 0 % (0-5); Neutrophil # 2.13 X10^3/uL (2.7-7.7); Neutrophil % 62.5 % (47-70); POSITIVE DIFFERENTIAL YES; Platelet Count 288 K/mm3 (150-450); RBC Distribution Width SD 56.9 fl (35.1-43.9); Red Blood Count 3.35 M/mm3 (4.2-5.4); White Blood Count 3.4 K/mm3 (4.4-11.0)
[2020-02-05 05:49] LABS: Differential Indicated SCAN CRITERIA MET
[2020-02-05 06:01] LABS: Anion Gap 5 (5-15); BUN 28 mg/dL (7-18); BUN/Creat Ratio 34.1 RATIO (10-20); Calcium,Total 8.5 mg/dL (8.5-10.1); Chloride 103 mmol/L (98-107); Creatinine, Serum 0.82 mg/dL (0.55-1.02); EST Glomerular Filtration Rate 74 mL/min (>60); Est Glom Filt Rate - Afr Amer 89 mL/min (>60); Estimated Creatinine Clearance 52.65 ml/min; Glucose 80 mg/dL (74-106); Potassium 4.2 mmol/L (3.5-5.1); Sodium Level 131 mmol/L (136-145)
[2020-02-05] MEDS: azaTHIOprine 50 MG Tablet PO (08:30)
[2020-02-05] MEDS: Aspirin 81 MG TAB.CHEW PO (08:30)
--- NOTE | 2020-02-05 12:27 | CASEMGMT ---
Addendum entered by Zaida Clark 02/06/20 13:20: Insurance approved with [employer] 02/08. Addendum entered by Zaida Clark 02/06/20 08:42: [facility] is out of network with Marcelina. [facility] has accepted pt. Notified pt and she is agreeable to DC there. Still waiting outcome from insurance update. Will continue to follow. Original Note: Social Work Followed up with patient about SNF choices. Pt chose [facility], [facility] and [facility]. [facility] is full. Left message with [facility]. Referral sent to [facility]. Will continue to follow. Zaida Clark, FERNY CMW
[2020-02-05 13:58] VITALS: BP 159/72; PULSE 66; RESP 18; TEMP 36.1; O2SAT 98
[2020-02-05 14:01] LABS: Pathologist Review Reviewed
--- NOTE | 2020-02-05 15:05 | NURSING ---
Resident and family notified of staff members testing positive for COVID
--- NOTE | 2020-02-05 15:15 | NURSING ---
Pt updated on two positive cases of Covid in staff members tested on Thursday 02/01
[2020-02-05] MEDS: Atorvastatin Calcium 80 MG Tablet PO (20:41)
[2020-02-05] MEDS: Citalopram 40 MG TABLET PO (20:42)
[2020-02-05] MEDS: MELATONIN 10 MG TABLET PO (20:42)
[2020-02-05] MEDS: Pramipexole Di-HCl 0.5 MG Tablet PO (20:42)
[2020-02-05 20:46] VITALS: PULSE 70; RESP 18
[2020-02-05] MEDS: Loperamide 2 MG Capsule PO (22:14)
[2020-02-06 05:00] VITALS: BP 155/89; PULSE 66; RESP 16; TEMP 37; O2SAT 96
[2020-02-06] MEDS: Acetaminophen 500 MG Tablet 1000 MG PO ×3 (05:47→21:07)
[2020-02-06] MEDS: Enoxaparin 40 MG/0.4 ML Syringe SC (05:48)
[2020-02-06] MEDS: amLODIPine 5 MG Tablet PO (05:49)
[2020-02-06] MEDS: Loratadine 10 MG Tablet PO (05:49)
[2020-02-06] MEDS: Calcium Carb/Vitamin D 1 TABLET Tablet PO (05:49)
[2020-02-06] MEDS: Lisinopril 40 MG Tablet PO ×2 (05:49→17:39)
[2020-02-06] MEDS: Clopidogrel Bisulfate 75 MG Tablet PO (05:49)
[2020-02-06 05:50] VITALS: BP 155/89; PULSE 66
[2020-02-06] MEDS: Metoprolol(XL)Succ 50 MG Tablet PO (05:50)
[2020-02-06] MEDS: Fluticasone/Salmeterol 232-14 Inhaler 1 PUFF IH ×2 (05:50→17:37)
[2020-02-06] MEDS: Aspirin 81 MG TAB.CHEW PO (08:13)
[2020-02-06] MEDS: azaTHIOprine 50 MG Tablet PO (08:14)
[2020-02-06] MEDS: Alendronate Sodium 70 MG Tablet PO (08:14)
[2020-02-06 10:00] VITALS: PULSE 71; RESP 18; O2SAT 97
[2020-02-06] MEDS: Albuterol Sulfate 8 gm Inhaler (60 puffs) 1 PUFF INHALATION (13:40)
[2020-02-06 14:41] VITALS: BP 162/86; PULSE 60; RESP 24; TEMP 36.5; O2SAT 99
[2020-02-06] MEDS: oxyCODONE 5 MG Tablet PO (15:30)
[2020-02-06] MEDS: guaiFENesin 600 MG Tablet PO (17:39)
[2020-02-06] MEDS: Atorvastatin Calcium 80 MG Tablet PO (21:08)
[2020-02-06] MEDS: MELATONIN 10 MG TABLET PO (21:08)
[2020-02-06] MEDS: Citalopram 40 MG TABLET PO (21:10)
[2020-02-06] MEDS: Pramipexole Di-HCl 0.5 MG Tablet PO (21:11)
[2020-02-07 05:00] VITALS: BP 133/72; PULSE 68; RESP 18; TEMP 36.6; O2SAT 97
[2020-02-07] MEDS: Fluticasone/Salmeterol 232-14 Inhaler 1 PUFF IH ×2 (05:44→17:23)
[2020-02-07 05:47] VITALS: BP 133/72; PULSE 68
[2020-02-07] MEDS: Metoprolol(XL)Succ 50 MG Tablet PO (05:47)
[2020-02-07] MEDS: Clopidogrel Bisulfate 75 MG Tablet PO (05:47)
[2020-02-07] MEDS: Acetaminophen 500 MG Tablet 1000 MG PO ×3 (05:47→21:22)
[2020-02-07] MEDS: Loratadine 10 MG Tablet PO (05:47)
[2020-02-07] MEDS: amLODIPine 5 MG Tablet PO (05:47)
[2020-02-07] MEDS: guaiFENesin 600 MG Tablet PO ×2 (05:47→17:23)
[2020-02-07] MEDS: Lisinopril 40 MG Tablet PO ×2 (05:48→17:24)
[2020-02-07] MEDS: Enoxaparin 40 MG/0.4 ML Syringe SC (05:48)
[2020-02-07] MEDS: Calcium Carb/Vitamin D 1 TABLET Tablet PO (05:48)
[2020-02-07] MEDS: Aspirin 81 MG TAB.CHEW PO (08:10)
[2020-02-07] MEDS: azaTHIOprine 50 MG Tablet PO (08:10)
[2020-02-07 13:12] VITALS: BP 147/71; PULSE 67; RESP 18; TEMP 36.1; O2SAT 99
[2020-02-07] MEDS: Citalopram 40 MG TABLET PO (21:22)
[2020-02-07] MEDS: Atorvastatin Calcium 80 MG Tablet PO (21:22)
[2020-02-07] MEDS: Pramipexole Di-HCl 0.5 MG Tablet PO (21:22)
[2020-02-07] MEDS: MELATONIN 10 MG TABLET PO (21:22)
[2020-02-08 05:00] VITALS: BP 136/81; PULSE 64; RESP 16; TEMP 37.1; O2SAT 96
[2020-02-08] MEDS: Fluticasone/Salmeterol 232-14 Inhaler 1 PUFF IH ×2 (05:40→16:47)
[2020-02-08 05:41] VITALS: BP 136/81; PULSE 64
[2020-02-08] MEDS: Enoxaparin 40 MG/0.4 ML Syringe SC (05:41)
[2020-02-08] MEDS: Lisinopril 40 MG Tablet PO ×2 (05:41→16:48)
[2020-02-08] MEDS: Acetaminophen 500 MG Tablet 1000 MG PO ×3 (05:41→21:04)
[2020-02-08] MEDS: Metoprolol(XL)Succ 50 MG Tablet PO (05:41)
[2020-02-08] MEDS: Calcium Carb/Vitamin D 1 TABLET Tablet PO (05:42)
[2020-02-08] MEDS: guaiFENesin 600 MG Tablet PO ×2 (05:42→16:48)
[2020-02-08] MEDS: amLODIPine 5 MG Tablet PO (05:42)
[2020-02-08] MEDS: Loratadine 10 MG Tablet PO (05:42)
[2020-02-08] MEDS: Clopidogrel Bisulfate 75 MG Tablet PO (05:42)
[2020-02-08] MEDS: Aspirin 81 MG TAB.CHEW PO (08:21)
[2020-02-08] MEDS: azaTHIOprine 50 MG Tablet PO (08:21)
[2020-02-08 10:00] VITALS: PULSE 68; RESP 18; O2SAT 96
--- NOTE | 2020-02-08 10:16 | NURSING ---
Removed sutures, pt tolerated well.
[2020-02-08 13:36] VITALS: BP 134/69; PULSE 68; RESP 16; TEMP 35.9; O2SAT 96
[2020-02-08] MEDS: Loperamide 2 MG Capsule PO (14:12)
[2020-02-08] MEDS: Atorvastatin Calcium 80 MG Tablet PO (21:04)
[2020-02-08] MEDS: MELATONIN 10 MG TABLET PO (21:04)
[2020-02-08] MEDS: Citalopram 40 MG TABLET PO (21:04)
[2020-02-08] MEDS: Pramipexole Di-HCl 0.5 MG Tablet PO (21:04)
[2020-02-09 05:00] VITALS: BP 153/81; PULSE 66; RESP 16; TEMP 36.9; O2SAT 97
[2020-02-09] MEDS: Fluticasone/Salmeterol 232-14 Inhaler 1 PUFF IH ×2 (06:35→17:46)
[2020-02-09] MEDS: amLODIPine 5 MG Tablet PO (06:35)
[2020-02-09] MEDS: Calcium Carb/Vitamin D 1 TABLET Tablet PO (06:35)
[2020-02-09] MEDS: Clopidogrel Bisulfate 75 MG Tablet PO (06:35)
[2020-02-09] MEDS: Loratadine 10 MG Tablet PO (06:35)
[2020-02-09 06:36] VITALS: PULSE 66
[2020-02-09] MEDS: Metoprolol(XL)Succ 50 MG Tablet PO (06:36)
[2020-02-09] MEDS: guaiFENesin 600 MG Tablet PO ×2 (06:36→17:45)
[2020-02-09] MEDS: Acetaminophen 500 MG Tablet 1000 MG PO ×3 (06:36→20:38)
[2020-02-09] MEDS: Enoxaparin 40 MG/0.4 ML Syringe SC (06:38)
[2020-02-09] MEDS: Lisinopril 40 MG Tablet PO ×2 (06:43→17:46)
[2020-02-09] MEDS: azaTHIOprine 50 MG Tablet PO (09:11)
[2020-02-09] MEDS: Aspirin 81 MG TAB.CHEW PO (09:11)
[2020-02-09 14:21] VITALS: BP 154/96; PULSE 68; RESP 18; TEMP 35.9; O2SAT 99
--- NOTE | 2020-02-09 15:11 | NURSING ---
Zaida from [facility] called this nurse and asked what degree of ROM does patient currently have if less then 0-90 degrees, they will probably order a CPM machine, and was asking about left foot drop/weakness. Therapy returned phone call to [facility] to give update on pts status.
[2020-02-09] MEDS: Atorvastatin Calcium 80 MG Tablet PO (20:39)
[2020-02-09] MEDS: MELATONIN 10 MG TABLET PO (20:39)
[2020-02-09] MEDS: Citalopram 40 MG TABLET PO (20:39)
[2020-02-09] MEDS: Pramipexole Di-HCl 0.5 MG Tablet PO (20:39)
[2020-02-10 04:41] VITALS: BP 152/91; PULSE 65; RESP 18; TEMP 36.6; O2SAT 97
[2020-02-10 04:47] VITALS: BP 152/91; PULSE 65
[2020-02-10] MEDS: guaiFENesin 600 MG Tablet PO ×2 (04:47→17:24)
[2020-02-10] MEDS: Metoprolol(XL)Succ 50 MG Tablet PO (04:47)
[2020-02-10] MEDS: Fluticasone/Salmeterol 232-14 Inhaler 1 PUFF IH ×2 (04:47→17:23)
[2020-02-10] MEDS: Loratadine 10 MG Tablet PO (04:47)
[2020-02-10] MEDS: Enoxaparin 40 MG/0.4 ML Syringe SC (04:47)
[2020-02-10] MEDS: Calcium Carb/Vitamin D 1 TABLET Tablet PO (04:48)
[2020-02-10] MEDS: Acetaminophen 500 MG Tablet 1000 MG PO ×3 (04:48→20:49)
[2020-02-10] MEDS: Lisinopril 40 MG Tablet PO ×2 (04:48→17:25)
[2020-02-10] MEDS: amLODIPine 5 MG Tablet PO (04:48)
[2020-02-10] MEDS: Clopidogrel Bisulfate 75 MG Tablet PO (04:48)
[2020-02-10] MEDS: Aspirin 81 MG TAB.CHEW PO (08:13)
[2020-02-10] MEDS: azaTHIOprine 50 MG Tablet PO (08:13)
[2020-02-10 10:45] VITALS: PULSE 70; RESP 18; O2SAT 95
[2020-02-10 14:25] VITALS: BP 153/81; PULSE 64; RESP 16; TEMP 36.6; O2SAT 98
--- NOTE | 2020-02-10 15:02 | CASEMGMT ---
Social Work Insurance issued LCD 02/11, DC 02/12. Notified pt and NAHUN. Both still agreeable for pt to transfer to [facility]. NAHUN can transport. [facility] notified and can accept. PASRR completed. Pt will admit private pay under Part B therapies. Plan: DC to [facility], private pay with Part B therapies, 02/12 Zaida Clark, FERNY SANTIAGO
--- NOTE | 2020-02-10 17:18 | NURSING ---
PT STATED SHE CALLS SON EVERYDAY.
--- NOTE | 2020-02-10 19:42 | DCINST_ITS ---
- Discharge Diagnoses Current Active Problems: Current Active and Chronic Problems (Last Updated 08/21/18 @ 12:[address] Carla Sun MD) Debility (Acute) Fall (Acute) Systemic lupus (Chronic) Fracture of left tibial plateau (Acute) Multiple falls (Chronic) Iron deficiency anemia (Chronic) Osteoporosis (Chronic) Pelvis fracture (Chronic) Crohn's disease (Chronic) Hyperlipidemia (Chronic) Depression (Chronic) Tobacco abuse (Chronic) Microscopic colitis (Chronic) CVA (cerebral vascular accident) (Chronic) 04/03/2017 Acute infarct involving right thalamic and posterior limb of right internal capsule HTN (hypertension) (Chronic) COPD (chronic obstructive pulmonary disease) (Chronic) You will use the following diet at home:: No restrictions, Regular Your food should be the consistency of: Regular Your liquids should be the consistency of: Regular/Thin Discharge Activity: Return to Normal Activity, May Shower, Use Walker Weight Bearing Status: No weight bearing - Left lower extremity. Call your doctor if your incision/area has: Continuous Slow Oozing, Sudden Increased Bleeding, Increased Pain/ Swelling, Increased Redness, Foul Smelling Discharge, Swelling at the incision site Call your doctor if you observe: Fever of 101 or Higher, Inability to urinate, Inability to have a bowel movement, Shortness of breath, Chest pain, Uncontrolled pain Allergies/Adverse Reactions: Allergies No Known Allergies Allergy (Verified 01/15/20 16:49) Medications to take at Discharge Atorvastatin Calcium 80 mg PO QHS 08/21/18 Azathioprine [Imuran] 50 mg PO DAILY@0800 08/21/18 Clopidogrel Bisulfate [Clopidogrel] 75 mg PO DAILY 08/21/18 Fluticasone/Salmeterol [Advair 250-50 Diskus] 1 ea IH BID 08/21/18 Lisinopril 40 mg PO DAILY #0 08/27/18 aspirin 81 mg chewable tablet 81 mg PO DAILY@0800 #90 tab 03/31/19 metoprolol succinate 50 mg tablet,extended release 24 hr 50 mg PO DAILY #90 tab 06/03/19 citalopram 40 mg tablet 40 mg PO DAILY tab 12/25/19 ropinirole 0.5 mg tablet 1 mg PO QHS tab 12/25/19 Albuterol Inhaler [Ventolin Hfa] 1 puff INHALATION Q6H PRN PRN 01/21/20 Cetirizine HCl 10 mg PO DAILY 01/21/20 Cholecalciferol (Vitamin D3) [Vitamin D3] 1 tab PO DAILY 01/21/20 Enoxaparin [Lovenox] 40 mg SC DAILY 01/21/20 Loperamide [Imodium] 2 mg PO Q6H PRN PRN 01/21/20 cycloBENZAPRine HCl [Flexeril] 10 mg PO TID PRN PRN 01/21/20 Acetaminophen [Tylenol] 1,000 mg PO TID tab 02/10/20 Alendronate Sodium [Fosamax] 70 mg PO Q7D@0700 tab 02/10/20 Amlodipine [Norvasc] 5 mg PO DAILY tab 02/10/20 Enoxaparin [Lovenox] 40 mg SC DAILY@0600 syringe 02/10/20 Guaifenesin [Mucinex] 600 mg PO BID tab 02/10/20 Melatonin 10 mg PO QHS tab 02/10/20 Nicotine [Nicoderm Cq] 21 mg TRANSDERM. DAILY patch 02/10/20 Oxycodone [Oxyir] 5 mg PO Q4H PRN PRN 3 Days #18 tab 02/10/20 The following prescriptions were given: Oxycodone [Oxyir] 5 mg PO Q4H PRN PRN 3 Days #18 tab PRN Reason: Pain Score 4-10 Prescription Printed Primary Care Physician: Alix Bonner DO [Primary Care Provider] - Please follow up with your Primary Care Physician in: 1 week. Test Results: Test results from this visit will be discussed in further detail at your follow- up appointment, if applicable. Please Follow Up With: Kiarra Yeung PA-C When: 2 weeks. Proposed Discharge Date: 02/13/20
--- NOTE | 2020-02-10 19:44 | DS.PCM_ITS ---
Discharge Date and Diagnosis - Problem List Patient Problems: Active and Suspected Problems (Last Updated 08/21/18 @ 12:[address] Carla Sun MD) Debility (Acute) Fall (Acute) Fracture of left tibial plateau (Acute) Date of Admission: 01/21/20 Date of Discharge: 02/13/20 - Primary Discharge Diagnosis Acute Problems: Active Problems (Last Updated 08/21/18 @ 12:[address] Carla Sun MD) Debility (Acute) Fall (Acute) Fracture of left tibial plateau (Acute) - Secondary Discharge Diagnosis Chronic Problems: Chronic Problems (Last Updated 08/21/18 @ 12:[address] Carla Sun MD) Systemic lupus (Chronic) Tobacco dependence (Chronic) Multiple falls (Chronic) Iron deficiency anemia (Chronic) Osteoporosis (Chronic) Pelvis fracture (Chronic) Crohn's disease (Chronic) Hyperlipidemia (Chronic) Depression (Chronic) Tobacco abuse (Chronic) Microscopic colitis (Chronic) Status post placement of implantable loop recorder (Chronic) 08/27/[address] Loco @ [facility] Secondary pulmonary arterial hypertension (Chronic) Nicotine dependence (Chronic) CVA (cerebral vascular accident) (Chronic) 04/03/2017 Acute infarct involving right thalamic and posterior limb of right internal capsule Ventricular tachycardia (Chronic) 18 beat run of VT per 30 day event monitor (ord by Dr. Rodriguez in neurology: Dr. Loco monitoring) HTN (hypertension) (Chronic) COPD (chronic obstructive pulmonary disease) (Chronic) Hospital Course and Treatment Imaging Results: 01/22/20 01:25 Diet: Regular - General Is pt able to select menu?: Yes Fluid restriction:: 1500 mL Diet Comments: Chocolate Ensure 120 ml w/ meals Clinical Impression(s) from Imaging Studies Knee X-Ray 02/03/20 07:30 IMPRESSION: Uncomplicated ORIF of tibial plateau fracture. Joint space narrowing of the lateral femorotibial compartment. Small joint effusion. Electronically Signed: Josh Gonzalez MD at 13:18 EST Tel , Service support , Microbiology 02/10/20 11:30 Nasal Secretion SARS-CoV-2 Antigen (Rapid) - Final Operations: None Procedures: None Summary of Care Provided: The patient is a 69 year old Female with below past medical history hospitalized for left tibial plateau fracture, underwent ORIF 01/16/20, complicated by hyponatremia, admitted to TCU with debility, here for rehabilitation, strengthening, prior to discharge home alone. Discharge to [facility], private pay with Part B therapies. Patient Problems: Active and Suspected Problems (Last Updated 08/21/18 @ 12:[address] Carla Sun MD) Debility (Acute) Fall (Acute) Fracture of left tibial plateau (Acute) - Physical Exam Vitals/I&O's: Vital Signs Temp Pulse Resp BP Pulse Ox 97.9 F 64 16 153/81 H 98 02/10/20 14:25 02/10/20 14:25 02/10/20 14:25 02/10/20 14:25 02/10/20 14:25 Oxygen Flow Rate (L/min) 2 Oxygen Delivery Method Room Air Weight: 53.609 kg Body Mass Index (BMI) 23.1 Finger Stick Blood Glucose 90 Intake and Output for Last 24 Hours 02/08/20 02/09/20 02/10/20 23:59 23:59 23:59 Intake Total 780 / 780 720 / 720 1080 / 1080 Balance 780 / 780 720 / 720 1080 / 1080 Microbiology Past 72 Hours 02/10/20 11:30 Nasal Secretion SARS-CoV-2 Antigen (Rapid) - Final Current Medications Acetaminophen (Acetaminophen 500 Mg Tablet) 1,000 mg PO TID [facility] Last Admin: 02/10/20 13:51 Dose: 1,000 mg Documented by: Albuterol Sulfate (Albuterol Sulfate 8 Gm Inhaler (60 Puffs)) 1 puff INHALATION Q6H PRN PRN PRN Reason: WHEEZING Last Admin: 02/06/20 13:40 Dose: 1 puff Documented by: Alendronate Sodium (Alendronate Sodium 70 Mg Tablet) 70 mg PO Q7D@0700 [facility] Last Admin: 02/06/20 08:14 Dose: 70 mg Documented by: Amlodipine Besylate (Amlodipine 5 Mg Tablet) 5 mg PO DAILY [facility] Last Admin: 02/10/20 04:48 Dose: 5 mg Documented by: Aspirin (Aspirin 81 Mg Tab.Chew) 81 mg PO DAILY@0800 [facility] Last Admin: 12/08/20 08:13 Dose: 81 mg Documented by: Atorvastatin Calcium (Atorvastatin Calcium 80 Mg Tablet) 80 mg PO QHS [facility] Last Admin: 02/09/20 20:39 Dose: 80 mg Documented by: Azathioprine (Azathioprine 50 Mg Tablet) 50 mg PO DAILY@0800 [facility] Last Admin: 02/10/20 08:13 Dose: 50 mg Documented by: Calcium/Vitamin D (Calcium Carb/Vitamin D 1 Tablet Tablet) 1 tablet PO DAILY [facility] Last Admin: 02/10/20 04:48 Dose: 1 tablet Documented by: Citalopram Hydrobromide (Citalopram 40 Mg Tablet) 40 mg PO QHS [facility] Last Admin: 02/09/20 20:39 Dose: 40 mg Documented by: Clopidogrel Bisulfate (Clopidogrel Bisulfate 75 Mg Tablet) 75 mg PO DAILY [facility] Last Admin: 02/10/20 04:48 Dose: 75 mg Documented by: Cyclobenzaprine HCl (Cyclobenzaprine Hcl 10 Mg Tablet) 10 mg PO TID PRN PRN PRN Reason: Muscle Spasms Enoxaparin Sodium (Enoxaparin 40 Mg/0.4 Ml Syringe) 40 mg SC DAILY@0600 [facility] Last Admin: 02/10/20 04:47 Dose: 40 mg Documented by: Guaifenesin (Guaifenesin 600 Mg Tablet) 600 mg PO BID [facility] Last Admin: 02/10/20 17:24 Dose: 600 mg Documented by: Lisinopril (Lisinopril 40 Mg Tablet) 40 mg PO BID [facility] Last Admin: 02/10/20 17:25 Dose: 40 mg Documented by: Loperamide HCl (Loperamide 2 Mg Capsule) 2 mg PO Q6H PRN PRN PRN Reason: Diarrhea Last Admin: 02/08/20 14:12 Dose: 2 mg Documented by: Loratadine (Loratadine 10 Mg Tablet) 10 mg PO DAILY [facility] Last Admin: 02/10/20 04:47 Dose: 10 mg Documented by: Melatonin (Melatonin 10 Mg Tablet) 10 mg PO QHS [facility] Last Admin: 02/09/20 20:39 Dose: 10 mg Documented by: Metoprolol Succinate (Metoprolol(Xl)Succ 50 Mg Tablet) 50 mg PO DAILY [facility] Last Admin: 02/10/20 04:47 Dose: 50 mg Documented by: Nicotine (Nicotine 21 Mg Patch) 21 mg TRANSDERM. DAILY [facility] Last Admin: 02/10/20 04:47 Dose: 21 mg Documented by: Oxycodone HCl (Oxycodone 5 Mg Tablet) 5 mg PO Q4H PRN PRN PRN Reason: Pain Score 4-10 Last Admin: 02/06/20 15:30 Dose: 5 mg Documented by: Pramipexole Dihydrochloride (Pramipexole Di-Hcl 0.5 Mg Tablet) 0.5 mg PO QHS [facility] Last Admin: 02/09/20 20:39 Dose: 0.5 mg Documented by: Fluticasone/Salmeterol (Fluticasone/Salmeterol 232-14 Inhaler) 1 puff IH Q12 [facility] Last Admin: 02/10/20 17:23 Dose: 1 puff Documented by: Discharge Diet: No Restrictions Discharge Activity: Return to Normal Activity, May Shower, Use Walker Weight Bearing Status: No weight bearing - Left lower extremity. Call your doctor if your incision/area has: Continuous Slow Oozing, Sudden Increased Bleeding, Increased Pain/ Swelling, Increased Redness, Foul Smelling Discharge, Swelling at the incision site Call your doctor if you observe: Fever of 101 or Higher, Inability to urinate, Inability to have a bowel movement, Shortness of breath, Chest pain, Uncontrolled pain Home Medications: Medications to take at Discharge Atorvastatin Calcium 80 mg PO QHS 08/21/18 Azathioprine [Imuran] 50 mg PO DAILY@0800 08/21/18 Clopidogrel Bisulfate [Clopidogrel] 75 mg PO DAILY 08/21/18 Fluticasone/Salmeterol [Advair 250-50 Diskus] 1 ea IH BID 08/21/18 Lisinopril 40 mg PO DAILY #0 08/27/18 aspirin 81 mg chewable tablet 81 mg PO DAILY@0800 #90 tab 03/31/19 metoprolol succinate 50 mg tablet,extended release 24 hr 50 mg PO DAILY #90 tab 06/03/19 citalopram 40 mg tablet 40 mg PO DAILY tab 12/25/19 ropinirole 0.5 mg tablet 1 mg PO QHS tab 12/25/19 Albuterol Inhaler [Ventolin Hfa] 1 puff INHALATION Q6H PRN PRN 01/21/20 Cetirizine HCl 10 mg PO DAILY 01/21/20 Cholecalciferol (Vitamin D3) [Vitamin D3] 1 tab PO DAILY 01/21/20 Enoxaparin [Lovenox] 40 mg SC DAILY 01/21/20 Loperamide [Imodium] 2 mg PO Q6H PRN PRN 01/21/20 cycloBENZAPRine HCl [Flexeril] 10 mg PO TID PRN PRN 01/21/20 Acetaminophen [Tylenol] 1,000 mg PO TID tab 02/10/20 Alendronate Sodium [Fosamax] 70 mg PO Q7D@0700 tab 02/10/20 Amlodipine [Norvasc] 5 mg PO DAILY tab 02/10/20 Enoxaparin [Lovenox] 40 mg SC DAILY@0600 syringe 02/10/20 Guaifenesin [Mucinex] 600 mg PO BID tab 02/10/20 Melatonin 10 mg PO QHS tab 02/10/20 Nicotine [Nicoderm Cq] 21 mg TRANSDERM. DAILY patch 02/10/20 Oxycodone [Oxyir] 5 mg PO Q4H PRN PRN 3 Days #18 tab 02/10/20 Following Prescriptions Were Given to Patient: Oxycodone [Oxyir] 5 mg PO Q4H PRN PRN 3 Days #18 tab PRN Reason: Pain Score 4-10 Prescription Printed Primary Care Physician: Alix Bonner DO [Primary Care Provider] - Please follow up with your Primary Care Physician in: 1 week. Please Follow Up With: Kiarra Yeung PA-C When: 2 weeks. Disposition: Asstd Living/Non-Skill NH Minutes spent on discharge:: 35 Patient Condition:: Stable Medical Necessity - Tobacco Use Smoking Status: Current every day smoker Tobacco Use: Cigarettes Meaningful Use Info Meaningful Use Diagnoses (Choose all that apply): None applicable
--- NOTE | 2020-02-10 19:46 | PCM.TXEXTCAR ---
- Diet 01/22/20 01:25 Diet: Regular - General Is pt able to select menu?: Yes Fluid restriction:: 1500 mL Diet Comments: Chocolate Ensure 120 ml w/ meals - Routine Orders/Code Status Suppository Type: Dulcolax 10mg Suppository Frequency: Daily PRN Code Status: DNRCC - Wound(s) left knee Wound Type: Surgical Incision Dressing Change: Dry Sterile Dressing - Therapies Weight Bearing: Non weight bearing Extremity Affected:: Left Lower Physical Therapy: Eval and Treat Occupational Therapy: Eval and Treat - Problem/Diagnosis (1) Fracture of left tibial plateau Status: Acute (2) Multiple falls Status: Chronic (3) Iron deficiency anemia Status: Chronic (4) Osteoporosis Status: Chronic (5) Pelvis fracture Status: Chronic (6) Crohn's disease Status: Chronic (7) Hyperlipidemia Status: Chronic (8) Depression Status: Chronic (9) Tobacco abuse Status: Chronic (10) Debility Status: Acute (11) Fall Status: Acute (12) Systemic lupus Status: Chronic (13) Microscopic colitis Status: Chronic (14) CVA (cerebral vascular accident) Status: Chronic Comment: 04/03/2017 Acute infarct involving right thalamic and posterior limb of right internal capsule (15) HTN (hypertension) Status: Chronic (16) COPD (chronic obstructive pulmonary disease) Status: Chronic - Allergies/Procedures Done in Hospital Allergies/Adverse Reactions: Allergies No Known Allergies Allergy (Verified 01/15/20 16:49) - Type of Care/Length of Stay Estimated LOS: Convalescent Care Less Than 30 days Type of Care Needed: Intermediate Rehab Potential: Fair Prognosis: Fair - Additional Orders/Day of Discharge Day of Discharge: 02/13/20 - Dietary and Speech Recommendations Dietitian Recommendations/Changes: Continue Regular diet. Will continue to provide Ensure Enlive 120 ml w/ meals TID. - Follow Up Care Primary Care Physician: Alix Bonner DO [Primary Care Provider] - Please follow up with your Primary Care Physician in: 1 week. Please Follow Up With: Kiarra Yeung PA-C When: 2 weeks.
[2020-02-10] MEDS: Citalopram 40 MG TABLET PO (20:50)
[2020-02-10] MEDS: MELATONIN 10 MG TABLET PO (20:50)
[2020-02-10] MEDS: Atorvastatin Calcium 80 MG Tablet PO (20:50)
[2020-02-10] MEDS: Pramipexole Di-HCl 0.5 MG Tablet PO (20:50)
[2020-02-11 05:00] VITALS: BP 138/78; PULSE 67; RESP 16; TEMP 36.6; O2SAT 97
[2020-02-11] MEDS: Enoxaparin 40 MG/0.4 ML Syringe SC (05:15)
[2020-02-11] MEDS: Acetaminophen 500 MG Tablet 1000 MG PO ×3 (05:15→21:22)
[2020-02-11] MEDS: Loratadine 10 MG Tablet PO (05:15)
[2020-02-11 05:16] VITALS: BP 138/78; PULSE 67
[2020-02-11] MEDS: Calcium Carb/Vitamin D 1 TABLET Tablet PO (05:16)
[2020-02-11] MEDS: guaiFENesin 600 MG Tablet PO ×2 (05:16→17:25)
[2020-02-11] MEDS: amLODIPine 5 MG Tablet PO (05:16)
[2020-02-11] MEDS: Metoprolol(XL)Succ 50 MG Tablet PO (05:16)
[2020-02-11] MEDS: Lisinopril 40 MG Tablet PO ×2 (05:16→17:25)
[2020-02-11] MEDS: Clopidogrel Bisulfate 75 MG Tablet PO (05:16)
[2020-02-11] MEDS: Fluticasone/Salmeterol 232-14 Inhaler 1 PUFF IH ×2 (05:17→17:24)
[2020-02-11] MEDS: Aspirin 81 MG TAB.CHEW PO (07:55)
[2020-02-11] MEDS: azaTHIOprine 50 MG Tablet PO (07:55)
--- NOTE | 2020-02-11 14:50 | NURSING ---
PT STATED SHE UPDATES SON.
[2020-02-11 15:21] VITALS: BP 143/76; PULSE 74; RESP 18; TEMP 36.3; O2SAT 94
[2020-02-11] MEDS: oxyCODONE 5 MG Tablet PO (16:44)
[2020-02-11] MEDS: Atorvastatin Calcium 80 MG Tablet PO (21:22)
[2020-02-11] MEDS: MELATONIN 10 MG TABLET PO (21:22)
[2020-02-11] MEDS: Pramipexole Di-HCl 0.5 MG Tablet PO (21:23)
[2020-02-11] MEDS: Citalopram 40 MG TABLET PO (21:23)
[2020-02-11 21:25] VITALS: PULSE 70; RESP 16; O2SAT 97
[2020-02-12] MEDS: Fluticasone/Salmeterol 232-14 Inhaler 1 PUFF IH ×2 (04:56→05:03)
[2020-02-12] MEDS: Acetaminophen 500 MG Tablet 1000 MG PO ×3 (04:56→21:22)
[2020-02-12] MEDS: Clopidogrel Bisulfate 75 MG Tablet PO (04:59)
[2020-02-12] MEDS: Calcium Carb/Vitamin D 1 TABLET Tablet PO (04:59)
[2020-02-12] MEDS: Loratadine 10 MG Tablet PO (04:59)
[2020-02-12] MEDS: guaiFENesin 600 MG Tablet PO ×2 (04:59→17:17)
[2020-02-12] MEDS: amLODIPine 5 MG Tablet PO (04:59)
[2020-02-12 05:00] VITALS: BP 150/77; PULSE 60; RESP 16; TEMP 36.6; O2SAT 97
[2020-02-12] MEDS: Metoprolol(XL)Succ 50 MG Tablet PO (05:00)
[2020-02-12] MEDS: Enoxaparin 40 MG/0.4 ML Syringe SC (05:01)
[2020-02-12] MEDS: Lisinopril 40 MG Tablet PO ×2 (05:01→17:17)
[2020-02-12 05:24] LABS: Absolute Lymphocyte Count 0.54 X10^3/uL (0.83-4.51); Absolute Neutrophil Count 1.9 X10^3/uL (2.0-7.7); Basophil# 0.01 X10^3/uL; Basophil% 0.3 % (0-1); Eosinophil# 0.22 X10^3/uL; Eosinophils% 7.1 % (0-5); Hematocrit 34.1 % (37-47); Hemoglobin 10.8 g/dL (12.0-15.0); Lymphocyte # 0.54 X10^3/ul (4.0); Lymphocyte % 17.5 % (19-41); Mean Corp Hgb Conc 31.7 g/dL (32-36); Mean Corpuscular Hgb 32.5 pg (27.0-32.0); Mean Corpuscular Volume 102.7 fL (81-99); Mean Platelet Vol. 9.3 fl (6.2-12.0); Monocyte# 0.44 X10^3/uL; Monocyte% 14.2 % (0-10); NRBC Flagged by Analyzer 0 % (0-5); Neutrophil # 1.87 X10^3/uL (2.7-7.7); Neutrophil % 60.6 % (47-70); POSITIVE DIFFERENTIAL YES; Platelet Count 216 K/mm3 (150-450); RBC Distribution Width CV 15.4 % (11.6-14.6); RBC Distribution Width SD 58.7 fl (35.1-43.9); Red Blood Count 3.32 M/mm3 (4.2-5.4); White Blood Count 3.1 K/mm3 (4.4-11.0)
[2020-02-12 05:29] LABS: Differential Indicated SCAN CRITERIA MET
[2020-02-12 05:37] LABS: Anion Gap 5 (5-15); BUN 27 mg/dL (7-18); BUN/Creat Ratio 32.2 RATIO (10-20); Calcium,Total 8.5 mg/dL (8.5-10.1); Chloride 104 mmol/L (98-107); Creatinine, Serum 0.84 mg/dL (0.55-1.02); EST Glomerular Filtration Rate 72 mL/min (>60); Est Glom Filt Rate - Afr Amer 87 mL/min (>60); Glucose 81 mg/dL (74-106); Potassium 3.9 mmol/L (3.5-5.1); Sodium Level 134 mmol/L (136-145)
[2020-02-12 06:05] LABS: Differential Comment SCANNED
[2020-02-12] MEDS: Aspirin 81 MG TAB.CHEW PO (07:58)
[2020-02-12] MEDS: azaTHIOprine 50 MG Tablet PO (07:58)
[2020-02-12 08:52] VITALS: PULSE 71; RESP 16; O2SAT 93
[2020-02-12 12:09] LABS: Pathologist Review Reviewed
[2020-02-12 14:13] VITALS: BP 152/76; PULSE 65; RESP 18; TEMP 36.1; O2SAT 94
--- NOTE | 2020-02-12 14:47 | MDS.RN ---
completed pain interview for 02/13/20.
[2020-02-12] MEDS: Citalopram 40 MG TABLET PO (21:22)
[2020-02-12] MEDS: Pramipexole Di-HCl 0.5 MG Tablet PO (21:22)
[2020-02-12] MEDS: Atorvastatin Calcium 80 MG Tablet PO (21:22)
[2020-02-12] MEDS: MELATONIN 10 MG TABLET PO (21:22)
[2020-02-13 05:00] VITALS: BP 140/78; PULSE 66; RESP 16; TEMP 36.6; O2SAT 97
[2020-02-13] MEDS: Acetaminophen 500 MG Tablet 1000 MG PO ×2 (05:43→13:34)
[2020-02-13] MEDS: Fluticasone/Salmeterol 232-14 Inhaler 1 PUFF IH (05:43)
[2020-02-13] MEDS: Clopidogrel Bisulfate 75 MG Tablet PO (05:43)
[2020-02-13] MEDS: Loratadine 10 MG Tablet PO (05:43)
[2020-02-13 05:44] VITALS: PULSE 66
[2020-02-13] MEDS: Calcium Carb/Vitamin D 1 TABLET Tablet PO (05:44)
[2020-02-13] MEDS: guaiFENesin 600 MG Tablet PO (05:44)
[2020-02-13] MEDS: Lisinopril 40 MG Tablet PO (05:44)
[2020-02-13] MEDS: Metoprolol(XL)Succ 50 MG Tablet PO (05:44)
[2020-02-13] MEDS: amLODIPine 5 MG Tablet PO (05:44)
[2020-02-13] MEDS: Enoxaparin 40 MG/0.4 ML Syringe SC (05:46)
[2020-02-13 07:36] VITALS: O2SAT 97
[2020-02-13] MEDS: Aspirin 81 MG TAB.CHEW PO (08:31)
[2020-02-13] MEDS: Alendronate Sodium 70 MG Tablet PO (08:31)
[2020-02-13] MEDS: azaTHIOprine 50 MG Tablet PO (08:32)
[2020-02-13 13:58] VITALS: BP 148/82; PULSE 69; RESP 16; TEMP 36.4; O2SAT 97
== END 2020-02-13 14:00 | disposition intermediate care facility (04) | DRG 560 ==
PROVIDERS: Admitting Provider Family Medicine Geriatric Medicine; PCP Family Medicine; Referring Provider Family Medicine Geriatric Medicine; Visit Provider Family Medicine Geriatric Medicine
DX: S82.142D Displaced bicondylar fracture of left tibia, subsequent encounter for closed fracture with routine healing (principal); K50.90 Crohn's disease, unspecified, without complications; E87.1 Hypo-osmolality and hyponatremia; W19.XXXD Unspecified fall, subsequent encounter; J44.9 Chronic obstructive pulmonary disease, unspecified; I10 Essential (primary) hypertension; M32.9 Systemic lupus erythematosus, unspecified; E78.5 Hyperlipidemia, unspecified; I27.21 Secondary pulmonary arterial hypertension; R29.6 Repeated falls; F17.210 Nicotine dependence, cigarettes, uncomplicated; F32.9 Major depressive disorder, single episode, unspecified; G25.81 Restless legs syndrome; M81.0 Age-related osteoporosis without current pathological fracture; D50.9 Iron deficiency anemia, unspecified; S32.9XXG Fracture of unspecified parts of lumbosacral spine and pelvis, subsequent encounter for fracture with delayed healing
CPT/HCPCS: 36415; 73560; 80048; 83930; 83935; 84300; 85014; 85018; 85025; 86850; 86900; 86901; 86920; 86922; 87426; 87635; 97110; 97162; 97166; 97530; 97535; 97802; 99251; 99406; G0463; U0002

== ENCOUNTER → 2020-01-23 08:12 | Outpatient (CLI) | payer MEDICARE, SELFPAY ==
[2020-01-22 00:36] VITALS: BMI 23.1
[2020-01-23] VITALS (10 sets, daily range): BP systolic 138–156; BP diastolic 63–96; PULSE 65–76; RESP 16; TEMP 35.9–36.6; O2SAT 96–100; BMI 21.0
[2020-01-23] MEDS: Furosemide 20 MG/2 ML VIAL IV (11:05)
== END ==
PROVIDERS: PCP Family Medicine; Referring Provider Family Medicine Geriatric Medicine; Visit Provider Family Medicine Geriatric Medicine
DX: D64.9 Anemia, unspecified (principal)
CPT/HCPCS: 36415; 36430; 86850; 86900; 86901; 86920; 86922; J7040; P9016; A4216; J1940

== ENCOUNTER 2021-03-17 12:05 | Observation (INO) | payer MEDICARE, SELFPAY ==
[2021-03-17] VITALS (13 sets, daily range): BP systolic 115–138; BP diastolic 68–85; PULSE 68–93; RESP 16–20; TEMP 36.8–37; O2SAT 91–100; BMI 16.7; BMI 19.0
--- NOTE | 2021-03-17 12:00 | EKG12_ITS ---
Test Reason : FALL/DIZZINESS Blood Pressure : / mmHG Vent. Rate : 068 BPM Atrial Rate : 068 BPM P-R Int : 238 ms QRS Dur : 072 ms QT Int : 378 ms P-R-T Axes : 000 050 090 degrees QTc Int : 401 ms Sinus rhythm with 1st degree A-V block Low voltage QRS (Limb Leads) Nonspecific ST and T wave abnormality Abnormal ECG Confirmed by BAKARI BRYANT, MALISSA ([id number]), news editor MARIA DEL CARMEN GRACE ([id number]) on 03/21/2021 11:22:59 AM Referred By: MIRNA/ELISHA Confirmed By:MALISSA IVLLEGAS MD
--- NOTE | 2021-03-17 12:29 | CT_ITS ---
STUDY: CT BRAIN WITHOUT CONTRAST REASON FOR EXAM: Female, 70 years old. Vertigo and weakness. RADIATION DOSAGE (If Supplied By Facility): CTDIvol = ( 44.99 ) mGy, DLP = ( 745.49 ) mGycm TECHNIQUE: Transaxial CT imaging of the brain was performed without administration of intravenous contrast material. Individualized dose optimization techniques were used for this CT. COMPARISON: Comparison is made with prior study dated 04/03/2017. FINDINGS: Normal soft tissue structures. Normal calvarium. There is mild cerebral atrophy with widening of the extra-axial spaces and ventricular dilatation. There are areas of decreased attenuation within the white matter tracts of the supratentorial brain, consistent with microvascular disease changes. 1 cm lacunar the posterior aspect of the right thalamus. This is new as compared to prior study. A tiny lacuna is also seen in the posterior aspect of the left thalamus as well as the posterior limb of the right internal capsule. Normal brainstem. Normal cerebellum. There is no intracranial hemorrhage. There are no findings of an acute ischemic infarction. Atherosclerotic calcification of the vertebral arteries and cavernous portions of the internal carotid arteries bilaterally. Normal visualized paranasal sinuses. CT/Brain/Head without Contrast IMPRESSION: Chronic involutional changes of the brain. Tiny lacuna in the posterior aspects of both right and left thalamus and the right internal capsule. Electronically Signed: Ryan Yun MD at 13:12 EST , Service support ,
[2021-03-17] MEDS: Meclizine HCl 25 MG Tablet PO (12:35)
--- NOTE | 2021-03-17 12:42 | EX.ED.DYSGE1 ---
HPI History of Present Illness Chief Complaint: Shortness of Breath Informant: patient and EMS Narrative Narrative: Patient had sudden onset of dizziness this morning that caused her to lose her balance and almost fall but she was able to brace herself with her walker and keep from falling and injuring herself. She states this started all of a sudden when she bent into the refrigerator to get something for breakfast and came out feeling dizzy in her head like things were spinning and moving. She initially called it lightheaded but agrees that it felt like things were moving and denies any presyncope or feeling faint. She denies any other new systemic symptoms. No headache, tinnitus, earache, hearing disturbance, nausea, vomiting, focal neurologic symptoms. Has a history of a stroke, she is on aspirin and clopidogrel for that, chronic weakness on the left side that is no different today. She uses a walker to get around on her own with home oxygen 2 L that she uses most of the time for COPD, she denies any recent illness except for a mild sore throat right now and states that her COPD has been stable with a chronic mild cough. Furthermore she states she has had vertigo before, felt similar to this, but it has never been as severe as this episode was. Unknown timing with regards to episodic vertigo that she has been having. [facility] Medical History Bronchitis COPD (chronic obstructive pulmonary disease) Crohn disease CVA (cerebral vascular accident) History of anxiety History of bronchitis History of CVA (cerebrovascular accident) History of pacemaker HTN (hypertension) left sided paresthesias Lupus Nicotine dependence Psoriasis Secondary pulmonary arterial hypertension Ventricular tachycardia Home Medications atorvastatin 80 mg PO QHS 08/21/18 [History Last Taken 08/20/18] azathioprine 50 mg PO DAILY@0800 08/21/18 [History Last Taken 08/21/18] clopidogrel 75 mg PO DAILY 08/21/18 [History Last Taken 08/21/18] fluticasone propion-salmeterol 1 ea IH BID 08/21/18 [History Last Taken 08/21/18] aspirin 81 mg chewable tablet 81 mg PO DAILY@0800 #90 tab 03/31/19 [Rx Last Taken Unknown] citalopram 40 mg tablet 40 mg PO DAILY tab 12/25/19 [History Last Taken Unknown] ropinirole 0.5 mg tablet 1 mg PO QHS tab 12/25/19 [History Last Taken Unknown] Cholecalciferol (Vitamin D3) [Vitamin D3] 1 tab PO DAILY 01/21/20 [History Last Taken Unknown] albuterol sulfate 1 puff INHALATION Q6H PRN PRN 01/21/20 [History Last Taken Unknown] cetirizine 10 mg PO DAILY 01/21/20 [History Last Taken Unknown] cyclobenzaprine 10 mg PO TID PRN PRN 01/21/20 [History Last Taken Unknown] loperamide 2 mg PO Q6H PRN PRN 01/21/20 [History Last Taken Unknown] acetaminophen 1,000 mg PO TID tab 02/10/20 [Rx Last Taken Unknown] alendronate 70 mg PO Q7D@0700 tab 02/10/20 [Rx Last Taken Unknown] enoxaparin 40 mg SC DAILY@0600 syringe 02/10/20 [Rx Last Taken Unknown] guaifenesin 600 mg PO BID tab 02/10/20 [Rx Last Taken Unknown] melatonin 10 mg PO QHS tab 02/10/20 [Rx Last Taken Unknown] nicotine 21 mg TRANSDERM. DAILY patch 02/10/20 [Rx Last Taken Unknown] oxycodone 5 mg PO Q4H PRN PRN 3 Days #18 tab 02/10/20 [Rx Last Taken Unknown] acetaminophen 500 mg tablet 1,000 mg PO Q6H PRN tab 02/16/20 [History Last Taken Unknown] amlodipine 10 mg tablet 10 mg PO DAILY 02/16/20 [History Last Taken Unknown] diphenhydramine HCl 25 mg capsule 25 mg PO TID PRN 02/16/20 [History Last Taken Unknown] ferrous sulfate 325 mg (65 mg iron) tablet 325 mg PO DAILY 02/16/20 [History Last Taken Unknown] lisinopril 40 mg tablet 40 mg PO BID tab 02/16/20 [History Last Taken Unknown] polyethylene glycol 3350 17 gram/dose oral powder 17 g PO DAILY 02/16/20 [History Last Taken Unknown] risedronate 35 mg tablet 35 mg PO QWEEK 02/16/20 [History Last Taken Unknown] triamcinolone acetonide 0.1 % lotion 1 applic TOPICAL BID PRN 02/16/20 [History Last Taken Unknown] umeclidinium 62.5 mcg/actuation blister powder for inhalation 1 inh INHALATION DAILY 02/16/20 [History Last Taken Unknown] metoprolol succinate 50 mg tablet,extended release 24 hr 50 mg PO DAILY #90 tab 08/23/20 [Rx Last Taken Unknown] Allergy/AdvReac Type Severity Reaction Status Date / Time No Known Allergies Allergy Verified 03/17/21 12:12 Family History Father Hypertension Lung cancer Mother Lupus Sister Crohn's disease Surgical History (Updated 02/16/20 @ 15:38 by Zoie Marshall) History of appendectomy History of appendectomy History of blepharoplasty History of carpal tunnel release History of cataract surgery History of loop recorder History of tubal ligation Status post blepharoplasty of both eyes Status post placement of implantable loop recorder Social History Smoking Status: Current some day smoker tobacco type: cigarettes alcohol intake: current details: Occasionally substance use type: does not use ROS ROS ED Constitutional Constitutional ED: Denies chills or fever(s) Eyes Eyes: Denies change in vision or diplopia ENT ENT ED: Reports as per HPI and vertigo; Denies ear pain, headache(s), hearing loss, loss taste/smell, rhinorrhea, sore throat or tinnitus Cardiovascular Cardiovascular: Denies chest pain or palpitations Respiratory/Chest Respiratory/Chest: Reports cough and dyspnea on exertion; Denies dyspnea or excessive phlegm production Gastrointestinal Gastrointestinal: Denies abdominal pain, diarrhea, nausea or vomiting Genitourinary Genitourinary ED: Denies dysuria or hematuria Musculoskeletal Musculoskeletal: Denies back pain or neck pain Integumentary Denies abscess or rash Neurologic Neurologic: Reports vertigo; Denies headache(s), paresthesias or weakness Psychiatric Psychiatric: Denies anxiety or suicidal thoughts EXAM Physical Exam Const Vital Signs: 03/17/21 12:06 03/17/21 12:09 03/17/21 12:10 Temperature 98.4 F 98.4 F Temperature Source Oral Oral Pulse Rate 70 70 Respiratory Rate 19 H 19 H Respiratory Effort Short of Breath Respiratory Depth Normal Respiratory Pattern Normal Blood Pressure 122/73 H 122/73 H Blood Pressure Mean 89 89 Pulse Ox 100 100 100 Oxygen Delivery Method Nasal Cannula Nasal Cannula Nasal Cannula Oxygen Flow Rate (L/min) 2 2 2 Positive well nourished and well developed General Appearance ED: well developed and NAD HEENT Reports moist mucous membranes normocephalic and atraumatic Eyes PERRL and EOMs intact bilaterally Neck full ROM and supple Resp normal respiratory effort and clear to auscultation bilaterally Cardio regular rate, regular rhythm and no murmurs GI non-tender and non-distended Auscultation: normoactive bowel sounds Palpation: soft Back/Spine no CVA tenderness General Back: other FROM Extremity normal to inspection General Extremety ED: Negative for edema, pulses abnormal or tenderness General Extremity: Negative for edema or pulses abnormal Neuro oriented x3, CN's II-XII intact bilaterally and no sensory deficits noted Neuro Narrative: No drift in either arm. Weak in the left leg compared with the right, 4+ on the right. Patient states this is baseline for her. Normal onhipo-dw-duwr bilaterally, not able to perform [id number]-lt-[id number] on both sides adequately. She states she has chronic tone issues and stiffness in her legs. Positive Granger-Hallpike to the right, reproducing the patient's symptoms that she had prior to coming here to the ER. Sensorium / Orientation: awake and alert Skin no rashes or lesions noted and no wounds MDM MDM MDM Narrative Medical decision making narrative: Staff had an EKG done prior to my evaluation and it is unremarkable showing sinus rhythm first-degree AV block no signs of an acute injury. I do not think this is cardiogenic issue. I did a CT scan given her history of stroke, shows new lacunar infarcts in the right thalamus 1 cm, this was not seen on her prior CT scan, but that scan was performed when she had acute stroke symptoms and this is likely what developed subsequently, causing her left-sided symptoms. There is also a tiny lacunar infarct in the left thalamus and posterior limb of the right internal capsule, I do not think those are causing any of her acute symptoms today and her cerebellum was normal on today's CT. She was given meclizine and that helped, however when we tried to ambulate her she did very poorly. Her legs are very stiff with increased tone making it hard for her to ambulate, and in addition, she was very wobbly/ataxic. She has had a very high risk of falling as a result of this. She is amenable to the possibility of assisted living or a higher level of care, and on further questioning states that her stiffness and difficulty walking has been really worsening lately. Lab Data Attestation: I reviewed the patient's lab results. Labs: Laboratory Results - last 24 hr 03/17/21 03/17/21 12:22 12:22 WBC 5.5 RBC 3.21 L Hgb 11.9 L Hct 35.0 L MCV 109.0 H MCH 37.1 H MCHC 34.0 RDW Std Deviation 61.6 H RDW Coeff of Marcelo 15.3 H Plt Count 275 MPV 9.8 Immature Gran % (Auto) 0.400 Neut % (Auto) 84.3 H Lymph % (Auto) 6.6 L [place] % (Auto) 7.7 Eos % (Auto) 0.5 Baso % (Auto) 0.5 Absolute Neuts (auto) 4.6 Absolute Lymphs (auto) 0.36 L Nucleated RBC % 0 Sodium 134 L Potassium 4.5 Chloride 102 Carbon Dioxide 26.0 Anion Gap 6 BUN 15 Creatinine 0.80 Estim Creat Clear Calc 45.58 Est GFR (MDRD) Af Amer 92 Est GFR (MDRD) Non-Af 76 BUN/Creatinine Ratio 18.8 Glucose 82 Calcium 8.3 L Radiography Diagnostic Testing: Clinical Impression(s) from Imaging Studies Brain CT 03/17/21 12:29 IMPRESSION: Chronic involutional changes of the brain. Tiny lacuna in the posterior aspects of both right and left thalamus and the right internal capsule. Electronically Signed: Ryan Yun MD at 13:12 EST , Service support , EKG Initial EKG: Attestation: I personally reviewed and interpreted this EKG as follows: Interpretation: Sinus Rhythm, No Acute Injury Pattern, AV Block (1st deg) and Non-Specific ST Changes Discharge Plan Dx/Rx/DC Orders Clinical Impression: Ataxia, Episodic peripheral vertigo, Declining functional status Disposition Disposition: [facility]
[2021-03-17 13:54] LABS: Absolute Lymphocyte Count 0.36 X10^3/uL (0.83-4.51); Absolute Neutrophil Count 4.6 X10^3/uL (2.0-7.7); Basophil# 0.03 X10^3/uL; Basophil% 0.5 % (0-1); Eosinophil# 0.03 X10^3/uL; Eosinophils% 0.5 % (0-5); Hemoglobin 11.9 g/dL (12.0-15.0); Lymphocyte # 0.36 X10^3/ul (0.83-4.51); Lymphocyte % 6.6 % (19-41); Mean Corpuscular Hgb 37.1 pg (27.0-32.0); Mean Platelet Vol. 9.8 fl (6.2-12.0); Monocyte# 0.42 X10^3/uL; Monocyte% 7.7 % (0-10); NRBC Flagged by Analyzer 0 % (0-5); Neutrophil % 84.3 % (47-70); POSITIVE DIFFERENTIAL YES; Platelet Count 275 K/mm3 (150-450); RBC Distribution Width CV 15.3 % (11.6-14.6); RBC Distribution Width SD 61.6 fl (35.1-43.9); Red Blood Count 3.21 M/mm3 (4.2-5.4); White Blood Count 5.5 K/mm3 (4.4-11.0)
[2021-03-17 13:55] LABS: Differential Indicated SCAN CRITERIA MET
[2021-03-17 14:05] LABS: Anion Gap 6 (5-15); BUN 15 mg/dL (7-18); BUN/Creat Ratio 18.8 RATIO (10-20); Calcium,Total 8.3 mg/dL (8.5-10.1); Chloride 102 mmol/L (98-107); EST Glomerular Filtration Rate 76 mL/min (>60); Est Glom Filt Rate - Afr Amer 92 mL/min (>60); Estimated Creatinine Clearance 45.58 ml/min; Glucose 82 mg/dL (74-106); Potassium 4.5 mmol/L (3.5-5.1); Sodium Level 134 mmol/L (136-145)
[2021-03-17 14:10] LABS: Mucous, Urine 0 SEEN /hpf (<or=2+); Red Blood Cells-Urine 0 SEEN /hpf (0-5); Squamous Epithelial Cells - UA 0 SEEN /hpf (5-10)
[2021-03-17 14:15] LABS: Color, Urine Yellow (Yellow); Glucose, Dipstick Normal (Normal); Ketone-Dipstick Negative (Negative); Leukocyte Esterase-Dipstick 25 /ul (Negative); Nitrite-Dipstick Negative (Negative); Occult Blood-Urine 10 /ul (Negative); Protein-Dipstick 30 mg/dl (Negative); Specific Gravity, Urine 1.015 (1.002-1.030); Urine Bilirubin Dipstick Negative (Negative); Urine Clarity Sl. Cloudy (Clear); Urine Urobilinogen Normal (Normal)
[2021-03-17 14:20] LABS: Bacteria 3+ /hpf (None Seen); White Blood Cells 0-5 SEEN /hpf (0-5)
--- NOTE | 2021-03-17 14:24 | MRI_ITS ---
HISTORY: vertigo EXAMINATION: MR Brain W/O Contrast TECHNIQUE: Multiplanar and multisequence MR images of the brain were obtained without gadolinium. IV Contrast dosage and agent: COMPARISON: Brain MRI 04/03/17, noncontrast head CT 03/17/21 FINDINGS: BRAIN PARENCHYMA: No MRI evidence of hemorrhage. No evidence of acute infarct. Central and cortical involutional changes are noted. There is increased T2 and FLAIR signal abnormality in the periventricular white matter. No intracranial mass or mass effect. There is preservation of the joseph/white matter interface. Normal sella turcica, pituitary gland, infundibular stalk, optic chiasm and hypothalamus. The internal auditory canals are patent. Posterior fossa structures are unremarkable. CSF SPACES: Appropriate for age. No hydrocephalus. Basal cisterns are patent. VASCULAR SYSTEM: Normal flow voids in the major intracranial circulation. CALVARIUM, SKULL BASE, PARANASAL SINUSES AND MASTOID AIR CELLS: Clear. No discrete lytic or blastic abnormalities. ORBITS: Both globes, extraocular muscles, optic nerves and retrobulbar fat appear unremarkable. MRI/Brain without Contrast IMPRESSION: Chronic involutional and white matter changes. No acute intracranial process. at 1622 Reported and signed by: Denys Becerra MD Electronically Signed: Denys Becerra MD at 16:21 EST Tel , Service support ,
--- NOTE | 2021-03-17 14:26 | HP.PCM.HOS_ITS ---
HPI - General General Date of Admission: 03/17/21 Date of Service: 03/17/21 Chief Complaint: Lightheadedness/vertigo HPI Narrative DONAL JOHNSON, is a 70 F who presented to the emergency department at [facility] after calling the squad to her home after she had sustained a fall and was found to have low blood pressures. In the emergency department she reported to the physician that she had been having episodes of what were initially thought to be vertigo although it sounds more like lightheadedness with positional changes. She states she has been compliant with her home shins and does confirm for me he is taking lisinopril 40 twice daily along with her other antihypertensives. When I specifically asked her if the world was spinning or she felt like she was spinning she said no she just felt more woozy but did not have syncopal or presyncopal type symptoms. She states she chronically ambulates with a walker and lives alone. She indicates she has had multiple falls. She does confirm that she had a recent admission to [facility] back 1 year ago and then was discharged to [facility] at which time she was discharged from there in May 2020. She states that since coming home she has had increasing debility and weakness. She is currently asymptomatic although she is sitting upright in bed. She states that the only time she is symptomatic is when she tries to stand. She does not have symptoms when she rolls in bed or when she transitions from lying to sitting. Her vital signs the emergency department were overall unremarkable. Her CBC was overall unremarkable other than a mild chronic macrocytic anemia which appears to be stable. Her BMP was unremarkable other than a chronic stable hyponatremia with a sodium of 134. Her UA is unremarkable. A CT of her brain was performed and showed chronic involutional changes of the brain and tiny lacunae in the posterior aspects of both the right and left thalamus as well as the right internal capsule. It appears that those are likely old when comparing to her MRI from March 2017. [facility] Medical History Bronchitis COPD (chronic obstructive pulmonary disease) Crohn disease CVA (cerebral vascular accident) History of anxiety History of bronchitis History of CVA (cerebrovascular accident) History of pacemaker HTN (hypertension) Hyponatremia left sided paresthesias Lupus Nicotine dependence Psoriasis Secondary pulmonary arterial hypertension Ventricular tachycardia Home Medications atorvastatin 80 mg PO QHS 08/21/18 [History Last Taken 08/20/18] azathioprine 50 mg PO DAILY@0800 08/21/18 [History Last Taken 08/21/18] clopidogrel 75 mg PO DAILY 08/21/18 [History Last Taken 08/21/18] fluticasone propion-salmeterol 1 ea IH BID 08/21/18 [History Last Taken 08/21/18] aspirin 81 mg chewable tablet 81 mg PO DAILY@0800 #90 tab 03/31/19 [Rx Last Taken Unknown] citalopram 40 mg tablet 40 mg PO DAILY tab 12/25/19 [History Last Taken Unknown] ropinirole 0.5 mg tablet 1 mg PO QHS tab 12/25/19 [History Last Taken Unknown] Cholecalciferol (Vitamin D3) [Vitamin D3] 1 tab PO DAILY 01/21/20 [History Last Taken Unknown] albuterol sulfate 1 puff INHALATION Q6H PRN PRN 01/21/20 [History Last Taken Unknown] cetirizine 10 mg PO DAILY 01/21/20 [History Last Taken Unknown] cyclobenzaprine 10 mg PO TID PRN PRN 01/21/20 [History Last Taken Unknown] loperamide 2 mg PO Q6H PRN PRN 01/21/20 [History Last Taken Unknown] acetaminophen 1,000 mg PO TID tab 02/10/20 [Rx Last Taken Unknown] alendronate 70 mg PO Q7D@0700 tab 02/10/20 [Rx Last Taken Unknown] enoxaparin 40 mg SC DAILY@0600 syringe 02/10/20 [Rx Last Taken Unknown] guaifenesin 600 mg PO BID tab 02/10/20 [Rx Last Taken Unknown] melatonin 10 mg PO QHS tab 02/10/20 [Rx Last Taken Unknown] nicotine 21 mg TRANSDERM. DAILY patch 02/10/20 [Rx Last Taken Unknown] oxycodone 5 mg PO Q4H PRN PRN 3 Days #18 tab 02/10/20 [Rx Last Taken Unknown] acetaminophen 500 mg tablet 1,000 mg PO Q6H PRN tab 02/16/20 [History Last Taken Unknown] amlodipine 10 mg tablet 10 mg PO DAILY 02/16/20 [History Last Taken Unknown] diphenhydramine HCl 25 mg capsule 25 mg PO TID PRN 02/16/20 [History Last Taken Unknown] ferrous sulfate 325 mg (65 mg iron) tablet 325 mg PO DAILY 02/16/20 [History Last Taken Unknown] lisinopril 40 mg tablet 40 mg PO BID tab 02/16/20 [History Last Taken Unknown] polyethylene glycol 3350 17 gram/dose oral powder 17 g PO DAILY 02/16/20 [History Last Taken Unknown] risedronate 35 mg tablet 35 mg PO QWEEK 02/16/20 [History Last Taken Unknown] triamcinolone acetonide 0.1 % lotion 1 applic TOPICAL BID PRN 02/16/20 [History Last Taken Unknown] umeclidinium 62.5 mcg/actuation blister powder for inhalation 1 inh INHALATION DAILY 02/16/20 [History Last Taken Unknown] metoprolol succinate 50 mg tablet,extended release 24 hr 50 mg PO DAILY #90 tab 08/23/20 [Rx Last Taken Unknown] Allergy/AdvReac Type Severity Reaction Status Date / Time No Known Allergies Allergy Verified 03/17/21 12:12 Family History Father Hypertension Lung cancer Mother Lupus Sister Crohn's disease Surgical History History of appendectomy History of appendectomy History of blepharoplasty History of carpal tunnel release History of cataract surgery History of loop recorder History of tubal ligation Status post blepharoplasty of both eyes Status post placement of implantable loop recorder Social History Smoking Status: Current some day smoker tobacco type: cigarettes alcohol intake: current details: Occasionally substance use type: does not use ROS Constitutional Constitutional: Reports weakness; Denies anorexia, change in weight, chills, fatigue, fever(s), malaise, night sweats or other Eyes Eyes: Denies blurry vision, change in eye color, change in vision, discharge from eye(s), double vision, erythema, eye pain, loss of vision or other ENT HEENT: Denies abnormal hearing, dysphagia, ear pain, epistaxis, headache(s), hearing loss, nasal congestion, nasal discharge, post nasal drip, sinus pressure, sore throat or other Cardiovascular Cardiovascular: Reports dyspnea on exertion; Denies chest pain, claudication, edema, lightheadedness, orthopnea, palpitations, paroxysmal nocturnal dyspnea, rapid heart rate, syncope or other Respiratory/Chest Respiratory/Chest: Reports cough, shortness of breath with exertion and wheezing; Denies dyspnea, excessive phlegm production, hemoptysis, productive cough, shortness of breath at rest or other Gastrointestinal Gastrointestinal: Reports diarrhea; Denies abdominal pain, coffee ground emesis, constipation, dyspepsia, hematemesis, hematochezia, loose stools, melena, nausea, vomiting or other Genitourinary Genitourinary: Denies burning urination, difficulty urinating, dysuria, hematuria, nocturia, urinary frequency, urinary hesitancy, urinary incontinence, urinary urgency or other Musculoskeletal Musculoskeletal: Reports arthralgias, back pain, joint pain and joint stiffness; Denies joint swelling, myalgias, neck pain or other Neurologic Neurologic: Reports abnormal gait, disequilibrium, numbness and other Details: Generalized weakness Endocrine Endocrinology: Denies change in body appearance, cold intolerance, excessive swe ating, heat intolerance, polydipsia, polyuria or other Hematologic/Lymphatic Hematologic/Lymphatic: Denies anemia, easy bleeding, easy bruising, lymphadenopathy or other Allergic/Immunologic Allergic/Immunologic: Denies rhinitis, hives, eczemia, asthma or other Vital Signs Vital Signs Vital Signs: 03/17/21 12:06 03/17/21 12:09 03/17/21 12:10 Temperature 98.4 F 98.4 F Temperature Source Oral Oral Pulse Rate 70 70 Respiratory Rate 19 H 19 H Respiratory Effort Short of Breath Respiratory Depth Normal Respiratory Pattern Normal Blood Pressure 122/73 H 122/73 H Blood Pressure Mean 89 89 Pulse Ox 100 100 100 Oxygen Delivery Method Nasal Cannula Nasal Cannula Nasal Cannula Oxygen Flow Rate (L/min) 2 2 2 Weight Weight: 42.9 kg Body Mass Index (BMI) 16.7 Physical Exam Const alert, oriented x3 and no apparent distress Constitutional Narrative: Thin, disheveled, upper middle-aged white female who appears much older than stated age, sitting up in bed, appears comfortable, nontoxic General Appearance: cooperative HEENT normocephalic, head/scalp atraumatic, hearing grossly normal bilaterally and moist oral mucous membranes HEENT Narrative: Mild thrush noted on tongue, dentition is poor, Mallampati is 1-2, temporal wasting Eyes PERRL, EOMs intact bilaterally and conjunctivae normal Eyes Narrative: No scleral icterus Neck no lymphadenopathy, supple, no JVD and no carotid bruits Neck Narrative: Trachea midline, no thyroid enlargement Resp normal respiratory effort, no retractions, no use of accessory muscles and No clear to auscultation bilaterally Resp Narrative: Diffuse scattered end expiratory wheeze and intermittent rhonchi that clears with cough Auscultation: rhonchi and wheezes; Negative for crackles or rales Cardio Negative for regular rate, regular rhythm, S1 normal heart sound, S2 normal heart sound, no murmurs, no rub, no gallops, no clicks or no JVD GI Negative for normal to inspection, nondistended, normoactive bowel sounds, soft to palpation, non-tender, non-distended or hepatosplenomegaly Auscultation: Negative for hyperactive bowel sounds or hypoactive bowel sounds Palpation: Negative for tender, guarding or hernia Extremity Extremity Narrative: Trace bilateral lower extremity edema, clubbing noted, fingernails are extremely long and unkept with dirt and nicotine stains noted, markedly decreased lean muscle mass Peripheral Pulses: Yes pulses 2+ throughout Skin no rashes or lesions noted, no wounds, skin turgor normal, no jaundice, no lizeth chiae and no mottling Skin Narrative: Thin skin with scattered ecchymosis Neuro oriented x3, CN's II-XII intact bilaterally, moves all extremities and no focal motor deficits Neuro Narrative: Marked generalized weakness Sensorium / Orientation: awake and alert Speech: speech normal Psych affect normal Psych Narrative: Very pleasant and appropriately interactive Results Lab / Micro Data Result Diagrams: 03/17/21 12:22 03/17/21 12:22 Labs: Laboratory Results - last 24 hr 03/17/21 12:22: WBC 5.5, RBC 3.21 L, Hgb 11.9 L, Hct 35.0 L, MCV 109.0 H, MCH 37.1 H, MCHC 34.0, RDW Std Deviation 61.6 H, RDW Coeff of Marcelo 15.3 H, Plt Count 275, MPV 9.8, Immature Gran % (Auto) 0.400, Neut % (Auto) 84.3 H, Lymph % (Auto) 6.6 L, [place] % (Auto) 7.7, Eos % (Auto) 0.5, Baso % (Auto) 0.5, Absolute Neuts (auto) 4.6, Absolute Lymphs (auto) 0.36 L, Nucleated RBC % 0 03/17/21 12:22: Sodium 134 L, Potassium 4.5, Chloride 102, Carbon Dioxide 26.0, Anion Gap 6, BUN 15, Creatinine 0.80, Estim Creat Clear Calc 45.58, Est GFR (MDRD) Af Amer 92, Est GFR (MDRD) Non-Af 76, BUN/Creatinine Ratio 18.8, Glucose 82, Calcium 8.3 L 03/17/21 14:00: Urine Color Yellow, Urine Clarity Sl. Cloudy, Urine pH 6.0, Ur Specific Spring 1.015, Urine Protein 30 H, Urine Glucose (UA) Normal, Urine Ketones Negative, Urine Occult Blood 10 H, Urine Nitrite Negative, Urine Bilirubin Negative, Urine Urobilinogen Normal, Ur Leukocyte Esterase 25 H, Urine RBC 0 SEEN, Urine WBC 0-5 SEEN, Ur Squamous Epith Cells 0 SEEN, Urine Bacteria 3+, Urine Mucus 0 SEEN Radiology Impression Brain CT 03/17/21 12:29 IMPRESSION: Chronic involutional changes of the brain. Tiny lacuna in the posterior aspects of both right and left thalamus and the right internal capsule. Electronically Signed: Ryan Yun MD at 13:12 EST , Service support , Assessment & Plan Assessment/Plan (1) Episodic peripheral vertigo: (2) Declining functional status: (3) Ataxia: (4) Lightheadedness: (5) Thrush: (6) Severe malnutrition: PLAN: Lightheadedness/vertigo/ataxia -Patient is very unclear on her description -It really sounds that she is having periods of more lightheadedness than true vertigo however it is difficult to gather based on her history -She did indicate that the temperer told her that her blood pressure was low upon their arrival and she is taking lisinopril 40 mg twice daily which is his double the rec dose on top of several other antihypertensives. -We will continue antihypertensives but correct her lisinopril dose to daily rather than twice daily -Check orthostatic vitals -Patient had an MRA head and neck not that long ago that did not show any concerning lesions so I do not believe that this is related to any circulatory lesions in the posterior circulation -History of stroke however so we will check MRI -PT/OT consultation -Patient has been admitted to the TCU approximately 1 year ago and then was discharged to [facility] and she reports she was discharged home in May but has been been declining ever since then -Patient is agreeable to placement again if needed Debility -It sounds as if the patient's functional capabilities have been declining slowly since she was discharged home from [facility] in May 2020 -Therapy consultations -Patient amenable to discharge to skilled facility -Patient is fairly disheveled on presentation and I suspect she is having a difficulty time taking care of herself at home -Recommend APS consultation be initiated by case management if not already done Thrush -start nystatin swish and spit for 7-day course -Suspect related to her chronic inhaled steroids Severe malnutrition -BMI is 16.8 -Patient meets aspen guidelines for severe malnutrition with weakness, temporal wasting, decreased lean muscle mass -Start supplements -Consult dietitian Chronic macrocytic anemia -Hemoglobin is stable at 11.9 -Monitor Severe COPD -PFTs from November 2019 show a FEV1 of 33% predicted -Continue home inhalers -Commend tobacco cessation -Patient is currently clinically stable but lungs sound bad PAH who group 2 -Related to severe lung disease/COPD -Continue home inhalers Hypertension -Continue loaded pain 10 mg daily -Continue lisinopril 40 mg daily--> Home dose is documented as 40 mg twice daily and I did confirm this with the patient -The twice daily dosing of lisinopril may be contributory towards her lighthe adedness symptoms upon admission -Continue metoprolol 50 mg daily Hyperlipidemia -Continue atorvastatin Crohn's disease/lupus -Continue azathioprine History of asymptomatic wide-complex tachycardia -Loop recorder in place -Patient has followed with in the outpatient but it does not appear he seen her since 2018 -Continue beta-shira Chronic allergies -Continue Benadryl -Hold sertraline History of stroke -Patient with remote history and CT in the emergency department showed tiny lacunae in the posterior aspect of the bilateral thalami and the right internal capsule -MRI pending to assess for any acute changes -Continue home Plavix and aspirin Osteoporosis -Continue home alendronate Chronic pain -Continue home pain medications except for Flexeril we will hold with lightheadedness on admission Tobacco abuse -Patient continues to abuse tobacco at home and currently smoking 3/4 to 1 pack cigarettes a day -Nicotine patch -Recommend cessation DVT prophylaxis -Lovenox 40 mg daily -SCDs CODE STATUS -Full code unverified working on verifying this at the time of admission Charges/Coding Visit Charges Inpatient E&M: 45864 Init Hosp L3
--- NOTE | 2021-03-17 14:45 | CASEMGMT ---
CAROLYN HOLT to room to meet with patient for initial transition planning/care coordination assessment. CAROLYN HOLT introduced self and role at [facility]. Patient voices understanding and consents to assessment at this time. Patient is alert and oriented, reclined on ER cart in no apparent distress and answers all questions appropriately. Care providers, pharmacy, and demographics verified/updated at this time. PCP: Alix Bonner Pharmacy: [facility] Insurance: [facility] Prescription Benefit: yes Living Will/HPOA: Patient states she has a living will and HPOA is daughterDelmy. Patient made aware these forms are not on file at [facility] and may be brought in to be scanned into record. LNOK: DaughterDelmy Living Arrangements: Patient lives alone in one story house with 2 steps to enter the home without a handrail in place. Patient reports she is able to dress herself independently but requires assistance with all other ADLs. Patient c/o increasing difficulty ambulating with rollator related to leg stiffness and decreased strength. Patient is interested in assisted living or higher level of care at this time. Smoking/ETOH: Smokes 1 ppd, denies ETOH or drug use Transportation: Patient does not currently drive and relies on family for transportation needs. DME/HHC/SNF: Prior to hospitalization, patient reports increasing difficulty ambulating using rollator. Also available in home: shower chair, raised toilet seat, transport chair and medical alert. Patient reports she wears home oxygen at 2 LPM PRN, supplied through [employer]. Previous HHC through [facility] and previous SNF stay at [facility] February 2020 to May 2020. Patient reports she would be interested in placement at [facility] or [facility] in [place], [place]. Plan: SNF
[2021-03-17] MEDS: diazePAM 5 MG Tablet 10 MG PO (14:58)
--- NOTE | 2021-03-17 14:59 | ED.RN ---
PT UNABLE TO STAND FOR ORTHO'S D/T WEAKNESS AND DIZZINESS.
--- NOTE | 2021-03-17 15:10 | CASEMGMT ---
CAROLYN HOLT returns to room to provide list of in-network [facility] facilities in [facility]. Patient currently at MRI. List placed with patient's belongings at bedside. -CAROLYN Kern CM
--- NOTE | 2021-03-17 17:16 | PCS.PANDOC ---
PANDEMIC DOCUMENTATION INITIATED: Date: 10/18/2020 Time: 190
[2021-03-17] MEDS: NYSTATIN 500,000 UNIT/5 ML UDC 500000 UNIT PO ×2 (18:33→20:22)
[2021-03-17] MEDS: Citalopram 40 MG TABLET PO (20:16)
[2021-03-17] MEDS: MELATONIN 10 MG TABLET PO (20:16)
[2021-03-17] MEDS: Pramipexole Di-HCl 0.25 MG Tablet PO (20:16)
[2021-03-17] MEDS: Atorvastatin Calcium 80 MG Tablet PO (20:16)
[2021-03-17] MEDS: guaiFENesin 600 MG Tablet PO (20:17)
[2021-03-17] MEDS: Ipratropium/Albuterol Sulfate 3 ML AMPUL.NEB INHALATION (20:35)
[2021-03-17] MEDS: Budesonide Respules 0.5 MG/2 ML AMPUL.NEB. INHALATION (20:38)
[2021-03-18] VITALS (18 sets, daily range): BP systolic 103–119; BP diastolic 49–74; PULSE 66–80; RESP 12–18; TEMP 36.5–37; O2SAT 90–100
[2021-03-18] MEDS: Enoxaparin 40 MG/0.4 ML Syringe SC (05:50)
[2021-03-18 06:04] LABS: Absolute Lymphocyte Count 0.43 X10^3/uL (0.83-4.51); Absolute Neutrophil Count 3.1 X10^3/uL (2.0-7.7); Basophil# 0.01 X10^3/uL; Basophil% 0.2 % (0-1); Eosinophil# 0.05 X10^3/uL; Eosinophils% 1.2 % (0-5); Hematocrit 29.9 % (37-47); Lymphocyte # 0.43 X10^3/ul (0.83-4.51); Lymphocyte % 10.7 % (19-41); Mean Corp Hgb Conc 33.4 g/dL (32-36); Mean Corpuscular Hgb 36.2 pg (27.0-32.0); Mean Corpuscular Volume 108.3 fL (81-99); Mean Platelet Vol. 9.4 fl (6.2-12.0); NRBC Flagged by Analyzer 0 % (0-5); Neutrophil # 3.11 X10^3/uL (2.7-7.7); Neutrophil % 77.7 % (47-70); POSITIVE DIFFERENTIAL YES; Platelet Count 266 K/mm3 (150-450); RBC Distribution Width CV 15.5 % (11.6-14.6); RBC Distribution Width SD 61.9 fl (35.1-43.9); Red Blood Count 2.76 M/mm3 (4.2-5.4)
[2021-03-18] MEDS: Acetaminophen 500 MG Tablet 1000 MG PO ×2 (06:06→13:36)
[2021-03-18 06:07] LABS: Differential Indicated SCAN CRITERIA MET
[2021-03-18 06:32] LABS: ALB/GLOB Ratio 0.7 RATIO (0.9-2.4); AST(SGOT) 16 U/L (15-37); Alanine Aminotransfer ALT/SGPT 19 U/L (13-56); Albumin, Serum 2.5 g/dL (3.2-5.0); Alkaline Phosphatase 50 U/L (45-117); Anion Gap 5 (5-15); BUN 20 mg/dL (7-18); BUN/Creat Ratio 24.5 RATIO (10-20); Calcium,Total 7.9 mg/dL (8.5-10.1); Chloride 104 mmol/L (98-107); Creatinine, Serum 0.82 mg/dL (0.55-1.02); EST Glomerular Filtration Rate 74 mL/min (>60); Est Glom Filt Rate - Afr Amer 90 mL/min (>60); Estimated Creatinine Clearance 48.96 ml/min; Globulin 3.4 g/dL (2.2-4.2); Glucose 102 mg/dL (74-106); Magnesium 1.9 mg/dL (1.6-2.6); Phosphorus 3.1 mg/dL (2.5-4.9); Potassium 4.1 mmol/L (3.5-5.1); Protein, Total 5.9 g/dL (6.4-8.2); Sodium Level 135 mmol/L (136-145); Thyroid Stim Hormone (TSH) 1.17 uIU/mL (0.358-3.74)
[2021-03-18 06:39] LABS: Anisocytosis 1+
--- NOTE | 2021-03-18 06:39 | RAD_ITS ---
STUDY: X-RAY - LEFT FOOT CLINICAL: Female, 70 years old. Recent fall with the pain overlying the phalanges. TECHNIQUE: 3 view(s) of the foot. COMPARISON: None. FINDINGS: Normal talus, calcaneus, and tarsal bones. Normal visualized subtalar, talonavicular, calcaneocuboid, tarsal and tarsometatarsal articulations. There is demineralization of the metatarsi. Nondisplaced transverse fractures through the distal aspect of the fourth and fifth metatarsals. Normal metatarsophalangeal joint of the great toe. Normal tibial and fibular sesamoid bones. Flexion deformity of the distal interphalangeal joint of the great toe. Normal phalanges of the great toe. Normal second through fifth metatarsophalangeal joints. Normal interphalangeal joints and phalanges of the lesser toes. Soft tissue swelling. RAD/Foot min 3 Views IMPRESSION: Demineralization of the metatarsal bones. Nondisplaced transverse fracture of the distal aspect of the fourth and fifth metatarsals. Soft tissue swelling. Electronically Signed: Ryan Yun MD at 8:34 EST , Service support ,
[2021-03-18] MEDS: Ipratropium/Albuterol Sulfate 3 ML AMPUL.NEB INHALATION ×3 (06:50→20:51)
[2021-03-18] MEDS: Budesonide Respules 0.5 MG/2 ML AMPUL.NEB. INHALATION ×2 (06:50→20:51)
[2021-03-18] MEDS: NYSTATIN 500,000 UNIT/5 ML UDC 500000 UNIT PO ×4 (08:35→21:34)
[2021-03-18] MEDS: Clopidogrel Bisulfate 75 MG Tablet PO (08:35)
[2021-03-18] MEDS: amLODIPine 10 MG Tablet PO (08:35)
[2021-03-18] MEDS: Lisinopril 40 MG Tablet PO (08:35)
[2021-03-18] MEDS: Ferrous Sulfate 325 MG Tablet PO (08:36)
[2021-03-18] MEDS: azaTHIOprine 50 MG Tablet PO (08:36)
[2021-03-18] MEDS: guaiFENesin 600 MG Tablet PO ×2 (08:36→21:36)
[2021-03-18] MEDS: Metoprolol(XL)Succ 50 MG Tablet PO (08:36)
[2021-03-18] MEDS: Aspirin 81 MG TAB.CHEW PO (08:36)
--- NOTE | 2021-03-18 10:29 | PN.HOSP_ITS ---
Documented by User: MICHAEL Mendez 03/18/21 10:36 Subjective Subjective Patient seen and examined. Patient lying in bed asleep, no distress noted. Patient awakes to verbal stimuli, states she is tired but otherwise has no complaints. Objective Data Objective Data Vital Signs: Vital Signs Temp Pulse Resp BP Pulse Ox 98.5 F 76 16 110/59 L 93 03/18/21 08:32 03/18/21 08:36 03/18/21 08:32 03/18/21 08:54 03/18/21 08:32 Oxygen Flow Rate (L/min) 2 Oxygen Delivery Method Room Air Weight: 104 lb 2 oz Body Mass Index (BMI) 19.0 Intake & Output: Intake and Output for Last 24 Hours 03/16/21 03/17/21 03/18/21 23:59 23:59 23:59 Intake Total 480 / 480 100 / 100 Balance 480 / 480 100 / 100 Lab / Micro Data Result Diagrams: 03/18/21 05:05 03/18/21 05:05 Labs: Laboratory Results - last 24 hr 03/17/21 12:22: WBC 5.5, RBC 3.21 L, Hgb 11.9 L, Hct 35.0 L, MCV 109.0 H, MCH 37.1 H, MCHC 34.0, RDW Std Deviation 61.6 H, RDW Coeff of Marcelo 15.3 H, Plt Count 275, MPV 9.8, Immature Gran % (Auto) 0.400, Neut % (Auto) 84.3 H, Lymph % (Auto) 6.6 L, Love % (Auto) 7.7, Eos % (Auto) 0.5, Baso % (Auto) 0.5, Absolute Neuts (auto) 4.6, Absolute Lymphs (auto) 0.36 L, Nucleated RBC % 0 03/17/21 12:22: Sodium 134 L, Potassium 4.5, Chloride 102, Carbon Dioxide 26.0, Anion Gap 6, BUN 15, Creatinine 0.80, Estim Creat Clear Calc 45.58, Est GFR (MDRD) Af Amer 92, Est GFR (MDRD) Non-Af 76, BUN/Creatinine Ratio 18.8, Glucose 82, Calcium 8.3 L 03/17/21 14:00: Urine Color Yellow, Urine Clarity Sl. Cloudy, Urine pH 6.0, Ur Specific [place] 1.015, Urine Protein 30 H, Urine Glucose (UA) Normal, Urine Ketones Negative, Urine Occult Blood 10 H, Urine Nitrite Negative, Urine Bilirubin Negative, Urine Urobilinogen Normal, Ur Leukocyte Esterase 25 H, Urine RBC 0 SEEN, Urine WBC 0-5 SEEN, Ur Squamous Epith Cells 0 SEEN, Urine Bacteria 3+, Urine Mucus 0 SEEN 03/18/21 05:05: WBC 4.0 L, RBC 2.76 L, Hgb 10.0 L, Hct 29.9 L, MCV 108.3 H, MCH 36.2 H, MCHC 33.4, RDW Std Deviation 61.9 H, RDW Coeff of Marcelo 15.5 H, Plt Count 266, MPV 9.4, Immature Gran % (Auto) 0.200, Neut % (Auto) 77.7 H, Lymph % (Auto) 10.7 L, Love % (Auto) 10.0, Eos % (Auto) 1.2, Baso % (Auto) 0.2, Absolute Neuts (auto) 3.1, Absolute Lymphs (auto) 0.43 L, Nucleated RBC % 0, Diff Path Review May foll, Anisocytosis 1+ 03/18/21 05:05: Sodium 135 L, Potassium 4.1, Chloride 104, Carbon Dioxide 26.0, Anion Gap 5, BUN 20 H, Creatinine 0.82, Estim Creat Clear Calc 48.96, Est GFR (MDRD) Af Amer 90, Est GFR (MDRD) Non-Af 74, BUN/Creatinine Ratio 24.5 H, Glucose 102, Calcium 7.9 L, Phosphorus 3.1, Magnesium 1.9, Total Bilirubin 0.30, AST 16, ALT 19, Alkaline Phosphatase 50, Total Protein 5.9 L, Albumin 2.5 L, Gl obulin 3.4, Albumin/Globulin Ratio 0.7 L, TSH 1.17 Radiography Diagnostic Testing: Radiology Impression Brain CT 03/17/21 12:29 IMPRESSION: Chronic involutional changes of the brain. Tiny lacuna in the posterior aspects of both right and left thalamus and the right internal capsule. Electronically Signed: Ryan Yun MD at 13:12 EST , Service support , Brain MRI 03/17/21 14:24 IMPRESSION: Chronic involutional and white matter changes. No acute intracranial process. at 1622 Reported and signed by: Denys Becerra MD Electronically Signed: Denys Becerra MD at 16:21 EST Tel , Service support , Foot X-Ray 03/18/21 06:39 IMPRESSION: Demineralization of the metatarsal bones. Nondisplaced transverse fracture of the distal aspect of the fourth and fifth metatarsals. Soft tissue swelling. Electronically Signed: Ryan Yun MD at 8:34 EST , Service support , Physical Exam Const alert, oriented x3 and no apparent distress HEENT head/scalp atraumatic Head and Scalp: normocephalic Eyes conjunctivae normal and no scleral icterus Neck supple General: trachea midline Resp normal respiratory effort, normal air movement and clear to auscultation bilaterally Effort and Inspection: able to speak in complete sentences and symmetric chest movement Cardio regular rate, regular rhythm and S1 normal heart sound GI normal to inspection, nondistended, normoactive bowel sounds, soft to palpation and non-tender Extremity normal to inspection, full ROM and no clubbing, cyanosis or edema Peripheral Pulses: Yes pulses 2+ throughout Skin no rashes or lesions noted, no wounds and skin turgor normal Neuro oriented x3, moves all extremities, no focal motor deficits and no sensory deficits noted Sensorium / Orientation: alert Motor Exam: general weakness Psych affect normal Assessment & Plan Assessment/Plan (1) Severe malnutrition: (2) Thrush: (3) Debility: PLAN: Patient is a 70-year-old female who initially presented following multiple falls at home. Patient reports continued debility and weakness following a stay at [facility] in May 2020. 1. Lightheadedness -PT and OT to eval and treat -Continuing daily lisinopril, decreased from twice daily -Vital signs stable -Orthostatic vital signs obtained, positive 2. Weakness and debility -Patient reports decrease in functional capabilities since returning from [facility] in May 2020 -PT and OT to eval and treat -Case management consulted as patient may need residential facility upon discharge 3. Thrush -Continue nystatin -Likely secondary to inhaled steroids 4. severe malnutrition -Dietitian consulted -Continue supplementation Continue home home medication regimen for chronic diseases. DVT prophylaxis-subcu Lovenox This patient was seen by MICHAEL Mendez under the supervision of Dr. Pandey. 9 minutes spent in clinical coordination of patient's plan of care. Documented by User: Dr. Jose J Pandey MD 03/18/21 16:09 Objective Data Lab / Micro Data Result Diagrams: 03/18/21 05:05 03/18/21 05:05 Assessment & Plan Addt'l Comments This patient was seen in conjunction with MICHAEL Mendez . I have independently interviewed and examined the patient and reviewed pertinent historical, laboratory, and other data. Please refer to MICHAEL Mendez note for details of this patient's presentation, findings, and recommendations. I have reviewed MICHAEL Mendez note and concur with documented findings. In brief, patient is a 70-year-old lady admitted from home with multiple falls. Patient was found to be hypotensive on admission admitted to a monitored bed for subsequent management Physical Examination: GENERAL: cooperative HEENT: Atraumatic; EYES; Anicteric, Normal Conjunctiva NECK; supple, normal thyroid, RESPIRATORY: Diminished to auscultation CARDIOVASCULAR: Regular S1 S2, GI: soft, normoactive bowel sounds, : No Renal angle tenderness; EXTREMITIES: No edema, no clubbing, MUSCULOSKELETAL: no muscle waisting NEURO: Awake; no lateralizing signs. SKIN: No Rash PSYCH; Flat affect Assessment: 1. Orthostatic hypotension secondary to antihypertensives 2. Multiple falls 3. Physical deconditioning 4. Essential hypertension presented with hypotensive episodes 5. Dyslipidemia 6. Oral candidiasis 7. SLE 8. Crohn's disease 9. Secondary pulmonary hypertension 10. COPD 11. Tobacco dependence 12. Psoriasis 11. Severe protein calorie malnutrition with BMI of 16.8 13. Anemia of chronic disorder 14. History of wide-complex tachycardia with loop recorder in place 15. Osteoporosis 16. 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 Chronic pain syndrome 18. DVT prophylaxis Recommendations: 1. I have discussed the results of my overview and impressions with the patient 2. Options for management were reviewed Time spent evaluating patient discussing with other providers involved in patient's care as well as subsequent adjustment to therapy; 25 minutes in addition to time spent by MICHAEL Mendez
[2021-03-18 13:08] LABS: Pathologist Review Reviewed
--- NOTE | 2021-03-18 14:15 | CASEMGMT ---
Addendum entered by Lynn Escalera 03/18/21 15:11: TCU will not be an option so SW faxed referral to [facility]. SW also called [facility] regarding referral. Lynn COBB Original Note: SW spoke with patient as it was relayed to SW that patient wanted to go to a long term. Introduced self and role at [facility]. Patient said she would like to go to [facility] TCU and if not there then [facility]. YAJAIRA told her SW will work on this and let her know. YAJAIRA called Gabriella with TCU and left a message regarding referral. Await response. Patient's insurance is waiving pre-certification at this time. Plan: TCU pending their acceptance of patient. Lynn COBB
--- NOTE | 2021-03-18 14:55 | PCM.TXEXTCAR ---
Diet 03/17/21 17:01 Diet: Cardiac - Heart Healthy Food consistency:: Regular Liquid Consistency:: Regular/Thin Is pt able to select menu?: Yes Routine Orders/Code Status Enema Type: Fleetz Enema Frequency: Daily PRN Suppository Type: Dulcolax 10mg Suppository Frequency: Daily PRN O2 Liters per Minute: 3 O2 Frequency: Continuous Routine Lab Work: CBC and BMP Suggestions for Active Care Change Position every (hours): 2 Times a day to sit in chair: 3 Therapies Physical Therapy: Eval and Treat Occupational Therapy: Eval and Treat Problem/Diagnosis (1) Severe malnutrition: Status: Acute (2) Thrush: Status: Acute (3) Debility: Status: Acute Allergies/Procedures Done in Hospital Allergies No Known Allergies Allergy (Verified 03/17/21 12:12) Procedures: None Type of Care/Length of Stay Estimated LOS: Convalescent Care Less Than 30 days Type of Care Needed: Skilled Rehab Potential: Fair Prognosis: Fair Additional Orders/Day of Discharge Day of Discharge: 03/19/21 Dietary and Speech Recommendations Dietitian Recommendations/Changes: Will continue Cardiac diet w/ ONS at [facility] as ordered Discharge Plan Admission Admit Date/Time: 03/17/21 14:24 Primary Reason for Your Visit: Debility Attending Provider: Jose J Pandey Primary Care Provider: Alix Bonner Instructions Patient Instructions: ED Vertigo, Unspecified Discharge Orders/Prescriptions Prescriptions: New nystatin 100,000 unit/mL Suspension 500,000 unit PO 4X/DAY Qty: 0 RF: 0 ipratropium-albuterol 0.5 mg-3 mg(2.5 mg base)/3 mL Solution For Nebulization 3 ml inhalation Q6HWA.RT Qty: 0 RF: 0 pramipexole 0.25 mg Tablet 0.25 mg PO QHS Qty: 0 RF: 0 lisinopril 40 mg Tablet 40 mg PO DAILY Qty: 0 RF: 0 Ensure Enlive 0.08 gram-1.5 kcal/mL Liquid 120 ml PO 4X/DAY Qty: 0 RF: 0 Continued risedronate [Actonel] 35 mg tablet 35 mg PO QWEEK RF: 0 amlodipine 10 mg tablet 10 mg PO DAILY RF: 0 Incruse Ellipta 62.5 mcg/actuation blister with device 1 inh INHALATION DAILY RF: 0 triamcinolone acetonide 0.1 % lotion 1 applic TOPICAL BID PRN (Reason: Itching) RF: 0 diphenhydramine HCl [Allergy Relief(diphenhydramin)] 25 mg capsule 25 mg PO TID PRN (Reason: allergies) RF: 0 ferrous sulfate 325 mg (65 mg iron) tablet 325 mg PO DAILY RF: 0 polyethylene glycol 3350 [Miralax] 17 gram/dose powder 17 g PO DAILY RF: 0 acetaminophen [Tylenol Extra Strength] 500 mg tablet 1,000 mg PO Q6H PRN (Reason: Pain) RF: 0 citalopram 40 mg tablet 40 mg PO DAILY RF: 0 azathioprine 50 MG tablet 50 mg PO DAILY@0800 RF: 0 clopidogrel 75 MG tablet 75 mg PO DAILY RF: 0 fluticasone propion-salmeterol 1 EACH blister with device 1 ea IH BID RF: 0 atorvastatin 80 MG tablet 80 mg PO QHS RF: 0 Cholecalciferol (Vitamin D3) [Vitamin D3] 25 MCG tablet 1 tab PO DAILY RF: 0 loperamide 2 MG capsule 2 mg PO Q6H PRN PRN (Reason: Diarrhea) RF: 0 cetirizine 10 MG tablet 10 mg PO DAILY RF: 0 albuterol sulfate 1 INHALER inhaler 1 puff INHALATION Q6H PRN PRN (Reason: Wheezing) RF: 0 alendronate 70 MG tablet 70 mg PO Q7D@0700 RF: 0 nicotine 21 MG patch 21 mg TRANSDERM. DAILY RF: 0 guaifenesin 600 MG tablet 600 mg PO BID RF: 0 melatonin 10 MG tablet 10 mg PO QHS RF: 0 aspirin 81 mg tablet,chewable 81 mg PO DAILY@0800 Qty: 90 RF: 3 metoprolol succinate 50 mg tablet extended release 24 hr 50 mg PO DAILY Qty: 90 RF: 3 Discontinued lisinopril 40 mg tablet 40 mg PO BID RF: 0 ropinirole 0.5 mg tablet 1 mg PO QHS RF: 0 acetaminophen 500 MG tablet 1,000 mg PO TID RF: 0 Referrals / Follow Up: Alix Bonner DO [Primary Care Provider] - 3-5 Days if not improving Disposition Disposition (needs filled in before D/C Order can be placed): [facility]
--- NOTE | 2021-03-18 15:52 | CASEMGMT ---
YAJAIRA received a call from [facility] and they can take patient, but not until tomorrow. YAJAIRA will fax PT/OT once in computer. YAJAIRA notified physician, Nurse Practitioner, lithopone charger, and patient. Completed 7000 on HENS. Green sheet on chart. Plan: d/c to [facility] under skilled level of care on a convalescent stay. Physicians will transport patient. Lynn COBB
--- NOTE | 2021-03-18 16:19 | CASEMGMT ---
PT/OT evaluations faxed to Madeline with [facility]. 7000 completed in HENS. Plan: d/c to [facility] under skilled level of care on a convalescent stay. Lynn Escalera SECURITY SYSTEM ANALYST JORDYN
[2021-03-18] MEDS: Pramipexole Di-HCl 0.25 MG Tablet PO (21:35)
[2021-03-18] MEDS: MELATONIN 10 MG TABLET PO (21:35)
[2021-03-18] MEDS: Citalopram 40 MG TABLET PO (21:35)
[2021-03-18] MEDS: Atorvastatin Calcium 80 MG Tablet PO (21:35)
[2021-03-19] VITALS (9 sets, daily range): BP systolic 117–118; BP diastolic 65–73; PULSE 71–85; RESP 14–20; TEMP 36.7–37.1; O2SAT 94–98
[2021-03-19] MEDS: Enoxaparin 40 MG/0.4 ML Syringe SC (05:02)
[2021-03-19] MEDS: Budesonide Respules 0.5 MG/2 ML AMPUL.NEB. INHALATION (07:21)
[2021-03-19] MEDS: Ipratropium/Albuterol Sulfate 3 ML AMPUL.NEB INHALATION (07:21)
[2021-03-19] MEDS: Ferrous Sulfate 325 MG Tablet PO (08:15)
[2021-03-19] MEDS: Aspirin 81 MG TAB.CHEW PO (08:15)
[2021-03-19] MEDS: azaTHIOprine 50 MG Tablet PO (08:15)
[2021-03-19 08:58] LABS: Absolute Lymphocyte Count 0.32 X10^3/uL (0.83-4.51); Absolute Neutrophil Count 4.1 X10^3/uL (2.0-7.7); Basophil# 0.01 X10^3/uL; Basophil% 0.2 % (0-1); Eosinophil# 0.06 X10^3/uL; Eosinophils% 1.2 % (0-5); Hematocrit 31.5 % (37-47); Hemoglobin 10.6 g/dL (12.0-15.0); Lymphocyte # 0.32 X10^3/ul (0.83-4.51); Lymphocyte % 6.5 % (19-41); Mean Corp Hgb Conc 33.7 g/dL (32-36); Mean Corpuscular Hgb 36.3 pg (27.0-32.0); Mean Corpuscular Volume 107.9 fL (81-99); Mean Platelet Vol. 9.8 fl (6.2-12.0); Monocyte# 0.47 X10^3/uL; Monocyte% 9.5 % (0-10); NRBC Flagged by Analyzer 0 % (0-5); Neutrophil # 4.06 X10^3/uL (2.7-7.7); Neutrophil % 82.2 % (47-70); POSITIVE DIFFERENTIAL YES; Platelet Count 265 K/mm3 (150-450); RBC Distribution Width CV 15.1 % (11.6-14.6); RBC Distribution Width SD 60.6 fl (35.1-43.9); Red Blood Count 2.92 M/mm3 (4.2-5.4); White Blood Count 4.9 K/mm3 (4.4-11.0)
[2021-03-19 09:05] LABS: Differential Indicated SCAN CRITERIA MET
[2021-03-19 09:14] LABS: Anion Gap 5 (5-15); BUN 17 mg/dL (7-18); BUN/Creat Ratio 28.3 RATIO (10-20); Calcium,Total 8.3 mg/dL (8.5-10.1); Chloride 103 mmol/L (98-107); EST Glomerular Filtration Rate 105 mL/min (>60); Est Glom Filt Rate - Afr Amer 128 mL/min (>60); Estimated Creatinine Clearance 40.15 ml/min; Glucose 90 mg/dL (74-106); Potassium 4.1 mmol/L (3.5-5.1); Sodium Level 135 mmol/L (136-145)
--- NOTE | 2021-03-19 09:14 | PCM.DC.SUM ---
Providers Date of Admission: 03/17/21 Primary Care Physician: Dr. Alix Bonner DO Reason For Visit: VERTIGO/GAIT INSTABILITY Diagnosis Discharge Diagnosis (1) Severe malnutrition: Status: Acute Code(s): E43 - Unspecified severe protein-calorie malnutrition (2) Thrush: Status: Acute Code(s): B37.0 - Candidal stomatitis (3) Debility: Status: Acute Code(s): R53.81 - Other malaise Medications at Discharge Home Medications atorvastatin 80 mg PO QHS 08/21/18 azathioprine 50 mg PO DAILY@0800 08/21/18 clopidogrel 75 mg PO DAILY 08/21/18 fluticasone propion-salmeterol 1 ea IH BID 08/21/18 aspirin 81 mg chewable tablet 81 mg PO DAILY@0800 #90 tab 03/31/19 citalopram 40 mg tablet 40 mg PO DAILY tab 12/25/19 Cholecalciferol (Vitamin D3) [Vitamin D3] 1 tab PO DAILY 01/21/20 albuterol sulfate 1 puff INHALATION Q6H PRN PRN 01/21/20 cetirizine 10 mg PO DAILY 01/21/20 loperamide 2 mg PO Q6H PRN PRN 01/21/20 alendronate 70 mg PO Q7D@0700 tab 02/10/20 guaifenesin 600 mg PO BID tab 02/10/20 melatonin 10 mg PO QHS tab 02/10/20 nicotine 21 mg TRANSDERM. DAILY patch 02/10/20 acetaminophen 500 mg tablet 1,000 mg PO Q6H PRN tab 02/16/20 amlodipine 10 mg tablet 10 mg PO DAILY 02/16/20 diphenhydramine HCl 25 mg capsule 25 mg PO TID PRN 02/16/20 ferrous sulfate 325 mg (65 mg iron) tablet 325 mg PO DAILY 02/16/20 polyethylene glycol 3350 17 gram/dose oral powder 17 g PO DAILY 02/16/20 risedronate 35 mg tablet 35 mg PO QWEEK 02/16/20 triamcinolone acetonide 0.1 % lotion 1 applic TOPICAL BID PRN 02/16/20 umeclidinium 62.5 mcg/actuation blister powder for inhalation 1 inh INHALATION DAILY 02/16/20 metoprolol succinate 50 mg tablet,extended release 24 hr 50 mg PO DAILY #90 tab 06/21/21 food supplemt, lactose-reduced [Ensure Enlive] 120 ml PO 4X/DAY #0 ml 03/18/21 ipratropium-albuterol 3 ml INHALATION Q6HWA.RT #0 ml 03/18/21 lisinopril 40 mg PO DAILY #0 tab 03/18/21 nystatin 500,000 unit PO 4X/DAY #0 ml 03/18/21 pramipexole 0.25 mg PO QHS #0 tab 03/18/21 Hospital Course Operations None Procedures None Summary of Care Provided Hospital Course: Patient is a 70-year-old female who initially presented following a fall at home. Patient reports that she has had lightheadedness and declining functional status at home over the past few months. Patient states that she was in [place] until May 2020 and since she has been home she has noticed that she has had increasing weakness and debility and is currently unable to take proper care of herself. Patient has been seen and evaluated by PT and OT during her admission who recommended further therapy. Patient is also noted to have severe malnutrition. Patient will be transferred to [place] for intermediate and PT and OT. This patient was seen by MICHAEL Mendez under the supervision of Dr. Pandey. 11 minutes spent in clinical coordination of patient's plan of care. Physical Exam Const alert, oriented x3 and no apparent distress General Appearance: cooperative HEENT normocephalic, head/scalp atraumatic, hearing grossly normal bilaterally and moist oral mucous membranes Eyes conjunctivae normal and no scleral icterus Neck no lymphadenopathy and supple General: trachea midline Resp normal respiratory effort, normal air movement, no retractions and no use of accessory muscles Effort and Inspection: able to speak in complete sentences and symmetric chest movement Auscultation: rhonchi and wheezes; Negative for crackles Cardio regular rate, regular rhythm, S1 normal heart sound and S2 normal heart sound; Negative for no clicks or no JVD GI normal to inspection, nondistended, normoactive bowel sounds, soft to palpation and non-tender; Negative for hepatosplenomegaly Extremity normal to inspection, full ROM and no clubbing, cyanosis or edema Skin no rashes or lesions noted, no wounds, skin turgor normal, no jaundice, no petechiae and no mottling Neuro oriented x3, moves all extremities, no focal motor deficits and no sensory deficits noted Sensorium / Orientation: alert Speech: speech normal Motor Exam: general weakness Psych affect normal Weight / BMI Weight Weight: 104 lb 2 oz Body Mass Index (BMI) 19.0 ABG / Lab / Microbiology Data Result Diagrams: 03/19/21 07:54 03/18/21 05:05 Laboratory: Laboratory Results - last 24 hr 03/18/21 05:05: Diff Path Review Reviewed 03/19/21 07:54: WBC 4.9, RBC 2.92 L, Hgb 10.6 L, Hct 31.5 L, MCV 107.9 H, MCH 36.3 H, MCHC 33.7, RDW Std Deviation 60.6 H, RDW Coeff of Marcelo 15.1 H, Plt Count 265, MPV 9.8, Immature Gran % (Auto) 0.400, Neut % (Auto) 82.2 H, Lymph % (Auto) 6.5 L, Clinch % (Auto) 9.5, Eos % (Auto) 1.2, Baso % (Auto) 0.2, Absolute Neuts (auto) 4.1, Absolute Lymphs (auto) 0.32 L, Nucleated RBC % 0 Microbiology: Microbiology 03/18/21 15:50 Nasal Secretion SARS-CoV-2 Antigen (Rapid) - Final D/C Instructions Discharge Diet: Low fat / Low cholesterol Call your doctor if you observe: Shortness of breath, Fainting spells and Chest pain Meaningful Use Info Meaningful Use Diagnoses (Choose all that apply): None applicable Discharge Plan Admission Admit Date/Time: 03/17/21 14:24 Primary Reason for Your Visit: Debility Attending Provider: Jose J Pandey Primary Care Provider: Alix Bonner Instructions Patient Instructions: ED Vertigo, Unspecified Discharge Orders/Prescriptions Prescriptions: New nystatin 100,000 unit/mL Suspension 500,000 unit PO 4X/DAY Qty: 0 RF: 0 ipratropium-albuterol 0.5 mg-3 mg(2.5 mg base)/3 mL Solution For Nebulization 3 ml inhalation Q6HWA.RT Qty: 0 RF: 0 pramipexole 0.25 mg Tablet 0.25 mg PO QHS Qty: 0 RF: 0 lisinopril 40 mg Tablet 40 mg PO DAILY Qty: 0 RF: 0 Ensure Enlive 0.08 gram-1.5 kcal/mL Liquid 120 ml PO 4X/DAY Qty: 0 RF: 0 Continued risedronate [Actonel] 35 mg tablet 35 mg PO QWEEK RF: 0 amlodipine 10 mg tablet 10 mg PO DAILY RF: 0 Incruse Ellipta 62.5 mcg/actuation blister with device 1 inh INHALATION DAILY RF: 0 triamcinolone acetonide 0.1 % lotion 1 applic TOPICAL BID PRN (Reason: Itching) RF: 0 diphenhydramine HCl [Allergy Relief(diphenhydramin)] 25 mg capsule 25 mg PO TID PRN (Reason: allergies) RF: 0 ferrous sulfate 325 mg (65 mg iron) tablet 325 mg PO DAILY RF: 0 polyethylene glycol 3350 [Miralax] 17 gram/dose powder 17 g PO DAILY RF: 0 acetaminophen [Tylenol Extra Strength] 500 mg tablet 1,000 mg PO Q6H PRN (Reason: Pain) RF: 0 citalopram 40 mg tablet 40 mg PO DAILY RF: 0 azathioprine 50 MG tablet 50 mg PO DAILY@0800 RF: 0 clopidogrel 75 MG tablet 75 mg PO DAILY RF: 0 fluticasone propion-salmeterol 1 EACH blister with device 1 ea IH BID RF: 0 atorvastatin 80 MG tablet 80 mg PO QHS RF: 0 Cholecalciferol (Vitamin D3) [Vitamin D3] 25 MCG tablet 1 tab PO DAILY RF: 0 loperamide 2 MG capsule 2 mg PO Q6H PRN PRN (Reason: Diarrhea) RF: 0 cetirizine 10 MG tablet 10 mg PO DAILY RF: 0 albuterol sulfate 1 INHALER inhaler 1 puff INHALATION Q6H PRN PRN (Reason: Wheezing) RF: 0 alendronate 70 MG tablet 70 mg PO Q7D@0700 RF: 0 nicotine 21 MG patch 21 mg TRANSDERM. DAILY RF: 0 guaifenesin 600 MG tablet 600 mg PO BID RF: 0 melatonin 10 MG tablet 10 mg PO QHS RF: 0 aspirin 81 mg tablet,chewable 81 mg PO DAILY@0800 Qty: 90 RF: 3 metoprolol succinate 50 mg tablet extended release 24 hr 50 mg PO DAILY Qty: 90 RF: 3 Discontinued lisinopril 40 mg tablet 40 mg PO BID RF: 0 ropinirole 0.5 mg tablet 1 mg PO QHS RF: 0 acetaminophen 500 MG tablet 1,000 mg PO TID RF: 0 Referrals / Follow Up: Alix Bonner DO [Primary Care Provider] - 3-5 Days if not improving Disposition Disposition (needs filled in before D/C Order can be placed): [facility]
[2021-03-19 10:00] LABS: Differential Comment SCANNED
[2021-03-19] MEDS: Clopidogrel Bisulfate 75 MG Tablet PO (10:05)
[2021-03-19] MEDS: amLODIPine 10 MG Tablet PO (10:05)
[2021-03-19] MEDS: Lisinopril 40 MG Tablet PO (10:05)
[2021-03-19] MEDS: NYSTATIN 500,000 UNIT/5 ML UDC 500000 UNIT PO (10:05)
[2021-03-19] MEDS: guaiFENesin 600 MG Tablet PO (10:07)
[2021-03-19] MEDS: Metoprolol(XL)Succ 50 MG Tablet PO (10:07)
--- NOTE | 2021-03-19 19:05 | CM.ED ---
YAJAIRA Note SW completed the HENS form for patient. Eliza HILLIARD
== END 2021-03-19 12:14 | disposition skilled nursing facility (03) | DRG 312 ==
LOC: ED 14:19 → PCU 03-18 00:39
PROVIDERS: Nurse Practitioner Family; Admitting Provider Internal Medicine; Emergency Provider Emergency Medicine; PCP Family Medicine; Visit Provider Internal Medicine
DX: I95.2 Hypotension due to drugs (principal); E43 Unspecified severe protein-calorie malnutrition; M32.9 Systemic lupus erythematosus, unspecified; J44.9 Chronic obstructive pulmonary disease, unspecified; I27.29 Other secondary pulmonary hypertension; K50.90 Crohn's disease, unspecified, without complications; B37.0 Candidal stomatitis; Z68.1 Body mass index [BMI] 19.9 or less, adult; F17.210 Nicotine dependence, cigarettes, uncomplicated; I10 Essential (primary) hypertension; L40.9 Psoriasis, unspecified; T46.5X5A Adverse effect of other antihypertensive drugs, initial encounter; R27.0 Ataxia, unspecified; Z79.82 Long term (current) use of aspirin; Z86.73 Personal history of transient ischemic attack (TIA), and cerebral infarction without residual deficits; Z79.02 Long term (current) use of antithrombotics/antiplatelets; M81.0 Age-related osteoporosis without current pathological fracture; Z79.83 Long term (current) use of bisphosphonates; G89.4 Chronic pain syndrome; Z20.822 Contact with and (suspected) exposure to COVID-19; F40.240 Claustrophobia; Z99.81 Dependence on supplemental oxygen; Z95.0 Presence of cardiac pacemaker; I44.0 Atrioventricular block, first degree; D63.8 Anemia in other chronic diseases classified elsewhere; E87.1 Hypo-osmolality and hyponatremia; E78.5 Hyperlipidemia, unspecified; Z79.899 Other long term (current) drug therapy; Z91.81 History of falling
CPT/HCPCS: 36415; 70450; 70551; 73630; 80048; 80053; 81001; 83735; 84100; 84443; 85025; 87426; 93005; 94640; 96372; 97163; 97167; 97802; 99218; 99251; 99285; G0378; G0463

== ENCOUNTER 2021-05-28 16:11 | Emergency (ER) | payer MEDICARE, SELFPAY ==
[2021-05-28 16:12] VITALS: BP 150/73; PULSE 75; RESP 14; TEMP 36.6; O2SAT 98; BMI 17.9
--- NOTE | 2021-05-28 16:29 | EDS_ITS ---
HPI History of Present Illness Chief Complaint: Lower Extremity Injury Detail of Chief Complaint: Stiff lower extremities Informant: patient Occured/Mechanism Comment: Not applicable Onset/Context/Timing Onset: Days Context: Gradual Onset Timing: Continuous Location: Stiff legs Current Severity: States she walks peg legged Maximum Severity: Unable to determine Worsened by: Unknown Relieved by: Nothing Associated Symptoms Associated Symptoms: Positive for Loss of Funtion; Negative for Parasthesia and Weakness Narrative Narrative: Patient is a 70-year-old woman with multiple medical problems who presents with swelling of her legs which is normal for her and her legs being stiff that she walks as if she has pegged legs. She denies fever, chills night sweats. She has no HEENT symptoms. She has no cardiac or respiratory symptoms. She denies back pain. She denies urologic symptoms. She was recently in a nursing facility. She is now living at home alone. She has decreased from 2 packs/day 5 years ago to three-quarter packs of cigarettes a day. She states/endorses chronic wheezing. She denies history of congestive heart failure, orthopnea or PND. She denies black or maroon-colored stool. Denies blood or mucus in her stool. She states she normally has 3-4 bowel movements a day due to colitis . Tetanus Immunization: Unknown Prior similar symptoms: No Recent Illness/Hospitalization: No PFSH PFSH Medical History Bronchitis COPD (chronic obstructive pulmonary disease) Crohn disease CVA (cerebral vascular accident) History of anxiety History of bronchitis History of CVA (cerebrovascular accident) History of pacemaker HTN (hypertension) Hyponatremia left sided paresthesias Lupus Nicotine dependence Psoriasis Secondary pulmonary arterial hypertension Ventricular tachycardia Home Medications atorvastatin 80 mg PO QHS 08/21/18 [History Last Taken 08/20/18] azathioprine 50 mg PO DAILY@0800 08/21/18 [History Last Taken 08/21/18] clopidogrel 75 mg PO DAILY 08/21/18 [History Last Taken 08/21/18] fluticasone propion-salmeterol 1 ea IH BID 08/21/18 [History Last Taken 08/21/18] aspirin 81 mg chewable tablet 81 mg PO DAILY@0800 #90 tab 03/31/19 [Rx Last Taken Unknown] citalopram 40 mg tablet 40 mg PO DAILY tab 12/25/19 [History Last Taken Unknown] Cholecalciferol (Vitamin D3) [Vitamin D3] 1 tab PO DAILY 01/21/20 [History Last Taken Unknown] albuterol sulfate 1 puff INHALATION Q6H PRN PRN 01/21/20 [History Last Taken Unknown] cetirizine 10 mg PO DAILY 01/21/20 [History Last Taken Unknown] loperamide 2 mg PO Q6H PRN PRN 01/21/20 [History Last Taken Unknown] alendronate 70 mg PO Q7D@0700 tab 02/10/20 [Rx Last Taken Unknown] melatonin 10 mg PO QHS tab 02/10/20 [Rx Last Taken Unknown] nicotine 21 mg TRANSDERM. DAILY patch 02/10/20 [Rx Last Taken Unknown] acetaminophen 500 mg tablet 1,000 mg PO Q6H PRN tab 02/16/20 [History Last Taken Unknown] amlodipine 10 mg tablet 10 mg PO DAILY 02/16/20 [History Last Taken Unknown] diphenhydramine HCl 25 mg capsule 25 mg PO TID PRN 02/16/20 [History Last Taken Unknown] ferrous sulfate 325 mg (65 mg iron) tablet 325 mg PO DAILY 02/16/20 [History Last Taken Unknown] polyethylene glycol 3350 17 gram/dose oral powder 17 g PO DAILY 02/16/20 [Hi story Last Taken Unknown] risedronate 35 mg tablet 35 mg PO QWEEK 02/16/20 [History Last Taken 03/13/21] triamcinolone acetonide 0.1 % lotion 1 applic TOPICAL BID PRN 02/16/20 [History Last Taken Unknown] umeclidinium 62.5 mcg/actuation blister powder for inhalation 1 inh INHALATION DAILY 02/16/20 [History Last Taken Unknown] metoprolol succinate 50 mg tablet,extended release 24 hr 50 mg PO DAILY #90 tab 08/23/20 [Rx Last Taken Unknown] food supplemt, lactose-reduced [Ensure Enlive] 120 ml PO 4X/DAY #0 ml 03/18/21 [Rx Last Taken Unknown] ipratropium-albuterol 3 ml INHALATION Q6HWA.RT #0 ml 03/18/21 [Rx Last Taken Unknown] lisinopril 40 mg PO DAILY #0 tab 03/18/21 [Rx Last Taken Unknown] nystatin 500,000 unit PO 4X/DAY #0 ml 03/18/21 [Rx Last Taken Unknown] pramipexole 0.25 mg PO QHS #0 tab 03/18/21 [Rx Last Taken Unknown] Allergy/AdvReac Type Severity Reaction Status Date / Time No Known Allergies Allergy Verified 05/28/21 16:12 Family History Father Hypertension Lung cancer Mother Lupus Sister Crohn's disease Surgical History History of appendectomy History of appendectomy History of blepharoplasty History of carpal tunnel release History of cataract surgery History of loop recorder History of tubal ligation Status post blepharoplasty of both eyes Status post placement of implantable loop recorder Social History (Updated 05/28/21 @ 16:[address] Faraz Damon MD) household members: none Smoking Status: Current some day smoker tobacco type: cigarettes alcohol intake: current details: Occasionally substance use type: does not use ROS ROS ED Constitutional Constitutional ED: Denies chills, fever(s), subjective, sweats or weight loss Eyes Eyes: Denies blurry vision, change in vision or diplopia ENT ENT ED: Denies ear pain, rhinorrhea or sore throat Cardiovascular Cardiovascular: Denies chest pain or palpitations Respiratory/Chest Respiratory/Chest: Reports cough; Denies dyspnea, dyspnea on exertion or sputum Gastrointestinal Gastrointestinal: Denies abdominal pain, nausea or vomiting Genitourinary Genitourinary ED: Denies dysuria, hematuria or urinary frequency Musculoskeletal Musculoskeletal: Reports other Details: Stiff lower extremities ; Denies arthralgias, myalgias or neck pain Integumentary Denies rash Neurologic Neurologic: Denies paresthesias or weakness EXAM Physical Exam Const Vital Signs: 05/28/21 16:12 Temperature 97.9 F Temperature Source Temporal Pulse Rate 75 Respiratory Rate 14 Blood Pressure 150/73 H Blood Pressure Mean 98 Pulse Ox 98 Oxygen Delivery Method Room Air Positive well nourished and well developed General Appearance ED: well developed and NAD HEENT normocephalic and atraumatic Eyes PERRL Eyes Narrative: Extract muscle intact. Sclerae anicteric. Neck full ROM and supple Thyroid: Negative for tender Resp normal respiratory effort and No clear to auscultation bilaterally Auscultation: wheezes expiratory wheezes, scattered wheezes and throughout and diminished lung sounds Cardio regular rate, regular rhythm, S1 normal heart sound, S2 normal heart sound and no murmurs GI non-tender, non-distended and no masses Auscultation: normoactive bowel sounds Palpation: soft Back/Spine no CVA tenderness Thoracic Spine / Upper Back: Negative for thoracic spinal tenderness Lumbar Spine / Lower Back: Negative for lumbar spinal tenderness Extremity Negative for normal to inspection or full ROM Extremity Narrative: Patient has edema of the right and left lower extremity. Left is greater. Patient states this is baseline for her because of traumatic injury in the past and prior stroke. DP pulse is palpable on the left absent on the right. PT pulses palpable on the right and difficult to assess because of edema on the left. There is no discoloration. There is asymmetry; however, this is chronic. Patient will not allow me to passively or actively flex at the knees. She resists flexion. Unable to assess for patellar ankle reflex because patient will not relax she stays stiff. She tells me that she is not doing it to her body. The left knee is slightly swollen. Scars noted due to prior fracture. Patellas not blottable. There is no effusion. There is minimal laxity with varus valgus stress testing. There is no laxity with Louis's test. Modified Anais's test is negative. There is no pain to palpation of the popliteal fossa. There is no pulsatile mass. General Extremety ED: Yes edema; Negative for cyanosis General Extremity: edema; Negative for cyanosis Neuro oriented x3, CN's II-XII intact bilaterally and no sensory deficits noted Sensorium / Orientation: alert Plantar Reflex: Downgoing: bilateral (There is no clonus either) Psych mental status grossly normal Skin no wounds Lesions: no lesions Rashes: no rashes MDM MDM MDM Narrative Medical decision making narrative: Metabolic work-up was undertaken. Suspect that her bilateral lymphedema is dependent lymphedema due to immobility. Son acknowledges that she does not walk much she sits a lot. Of note she denies symptoms of claudication. Furthermore, cap refill is less than 2 seconds after her feet were warmed up. Since patient's work-up is unremarkable her edema is due to immobility. Regarding the stiffness I have no explanation. I believe this to be voluntary. Lab Data Attestation: I reviewed the patient's lab results. Lab results narrative: Patient hemoglobin is higher than normal and BUN to creatinine ratio is elevated suspect this is due to mild dehydration. Albumin and total protein are normal. Patient not anemic. Labs: Laboratory Results - last 24 hr 05/28/21 05/28/21 16:40 16:40 WBC 4.7 RBC 3.41 L Hgb 12.0 Hct 35.0 L MCV 102.6 H MCH 35.2 H MCHC 34.3 RDW Std Deviation 46.9 H RDW Coeff of Marcelo 12.3 Plt Count 245 MPV 8.8 Immature Gran % (Auto) 0.400 Neut % (Auto) 83.5 H Lymph % (Auto) 7.0 L Dickens % (Auto) 8.3 Eos % (Auto) 0.4 Baso % (Auto) 0.4 Absolute Neuts (auto) 3.9 Absolute Lymphs (auto) 0.33 L Nucleated RBC % 0 Platelet Estimate ADEQUATE Poikilocytosis 1+ Macrocytosis 1+ Ovalocytes 1+ Sodium 128 L Potassium 3.9 Chloride 96 L Carbon Dioxide 24.0 Anion Gap 8 BUN 22 H Creatinine 1.08 H Estim Creat Clear Calc 34.99 Est GFR (MDRD) Af Amer 65 Est GFR (MDRD) Non-Af 54 L BUN/Creatinine Ratio 20.4 H Glucose 102 Calcium 9.3 Total Bilirubin 0.60 AST 23 ALT 24 Alkaline Phosphatase 72 Total Protein 7.4 Albumin 3.6 Globulin 3.8 Albumin/Globulin Ratio 0.9 Discharge Plan Triage Chief Complaint: Lower Extremity Injury ED Provider: Faraz Damon Dx/Rx/DC Orders Clinical Impression: Dependent lymphedema due to impaired mobility, Stiffness of multiple joints, Acute prerenal azotemia, HTN (hypertension), COPD (chronic obstructive pulmonary disease) Instructions: ED Peripheral Edema, Bilateral, ED Renal Insufficiency Prescriptions: No Action risedronate [Actonel] 35 mg tablet 35 mg PO QWEEK RF: 0 amlodipine 10 mg tablet 10 mg PO DAILY RF: 0 Incruse Ellipta 62.5 mcg/actuation blister with device 1 inh INHALATION DAILY RF: 0 triamcinolone acetonide 0.1 % lotion 1 applic TOPICAL BID PRN (Reason: Itching) RF: 0 diphenhydramine HCl [Allergy Relief(diphenhydramin)] 25 mg capsule 25 mg PO TID PRN (Reason: allergies) RF: 0 ferrous sulfate 325 mg (65 mg iron) tablet 325 mg PO DAILY RF: 0 polyethylene glycol 3350 [Miralax] 17 gram/dose powder 17 g PO DAILY RF: 0 acetaminophen [Tylenol Extra Strength] 500 mg tablet 1,000 mg PO Q6H PRN (Reason: Pain) RF: 0 citalopram 40 mg tablet 40 mg PO DAILY RF: 0 azathioprine 50 MG tablet 50 mg PO DAILY@0800 RF: 0 clopidogrel 75 MG tablet 75 mg PO DAILY RF: 0 fluticasone propion-salmeterol 1 EACH blister with device 1 ea IH BID RF: 0 atorvastatin 80 MG tablet 80 mg PO QHS RF: 0 Cholecalciferol (Vitamin D3) [Vitamin D3] 25 MCG tablet 1 tab PO DAILY RF: 0 loperamide 2 MG capsule 2 mg PO Q6H PRN PRN (Reason: Diarrhea) RF: 0 cetirizine 10 MG tablet 10 mg PO DAILY RF: 0 albuterol sulfate 1 INHALER inhaler 1 puff INHALATION Q6H PRN PRN (Reason: Wheezing) RF: 0 alendronate 70 MG tablet 70 mg PO Q7D@0700 RF: 0 nicotine 21 MG patch 21 mg TRANSDERM. DAILY RF: 0 melatonin 10 MG tablet 10 mg PO QHS RF: 0 nystatin 100,000 unit/mL Suspension 500,000 unit PO 4X/DAY Qty: 0 RF: 0 ipratropium-albuterol 0.5 mg-3 mg(2.5 mg base)/3 mL Solution For Nebulization 3 ml inhalation Q6HWA.RT Qty: 0 RF: 0 pramipexole 0.25 mg Tablet 0.25 mg PO QHS Qty: 0 RF: 0 lisinopril 40 mg Tablet 40 mg PO DAILY Qty: 0 RF: 0 Ensure Enlive 0.08 gram-1.5 kcal/mL Liquid 120 ml PO 4X/DAY Qty: 0 RF: 0 aspirin 81 mg tablet,chewable 81 mg PO DAILY@0800 Qty: 90 RF: 3 metoprolol succinate 50 mg tablet extended release 24 hr 50 mg PO DAILY Qty: 90 RF: 3 Primary Care Provider: Alix Bonner Referrals: Malys,Alix, DO [Primary Care Provider] - 3-5 Days if not improving Activity Restrictions/Additional Instructions: Neuro exam remains swollen if you do not get up and move more than you presently are. You can also elevate your feet. My definition of elevating your feet is your toes above your nose. You need to increase your fluid intake. You are mildly dehydrated based on your labs Disposition Disposition: Home, Self Care
[2021-05-28 16:46] LABS: Absolute Lymphocyte Count 0.33 X10^3/uL (0.83-4.51); Absolute Neutrophil Count 3.9 X10^3/uL (2.0-7.7); Basophil# 0.02 X10^3/uL; Basophil% 0.4 % (0-1); Eosinophil# 0.02 X10^3/uL; Eosinophils% 0.4 % (0-5); Lymphocyte # 0.33 X10^3/ul (0.83-4.51); Mean Corp Hgb Conc 34.3 g/dL (32-36); Mean Corpuscular Hgb 35.2 pg (27.0-32.0); Mean Corpuscular Volume 102.6 fL (81-99); Mean Platelet Vol. 8.8 fl (6.2-12.0); Monocyte# 0.39 X10^3/uL; Monocyte% 8.3 % (0-10); NRBC Flagged by Analyzer 0 % (0-5); Neutrophil # 3.93 X10^3/uL (2.7-7.7); Neutrophil % 83.5 % (47-70); POSITIVE DIFFERENTIAL YES; Platelet Count 245 K/mm3 (150-450); RBC Distribution Width CV 12.3 % (11.6-14.6); RBC Distribution Width SD 46.9 fl (35.1-43.9); Red Blood Count 3.41 M/mm3 (4.2-5.4); White Blood Count 4.7 K/mm3 (4.4-11.0)
[2021-05-28 16:48] LABS: Differential Indicated SCAN CRITERIA MET
[2021-05-28 17:04] LABS: ALB/GLOB Ratio 0.9 RATIO (0.9-2.4); AST(SGOT) 23 U/L (15-37); Alanine Aminotransfer ALT/SGPT 24 U/L (13-56); Albumin, Serum 3.6 g/dL (3.2-5.0); Alkaline Phosphatase 72 U/L (45-117); Anion Gap 8 (5-15); BUN 22 mg/dL (7-18); BUN/Creat Ratio 20.4 RATIO (10-20); Calcium,Total 9.3 mg/dL (8.5-10.1); Chloride 96 mmol/L (98-107); Creatinine, Serum 1.08 mg/dL (0.55-1.02); EST Glomerular Filtration Rate 54 mL/min (>60); Est Glom Filt Rate - Afr Amer 65 mL/min (>60); Estimated Creatinine Clearance 34.99 ml/min; Globulin 3.8 g/dL (2.2-4.2); Glucose 102 mg/dL (74-106); Macrocytosis 1+; Ovalocyte 1+; Platelet Estimate ADEQUATE (ADEQ); Poikilocytosis 1+; Potassium 3.9 mmol/L (3.5-5.1); Protein, Total 7.4 g/dL (6.4-8.2); Sodium Level 128 mmol/L (136-145)
[2021-05-28 17:50] VITALS: BP 115/78; PULSE 78; RESP 14; TEMP 36.9; O2SAT 98
== END 2021-05-28 17:51 | disposition home or self-care (01) ==
PROVIDERS: Emergency Provider Emergency Medicine; PCP Family Medicine; Visit Provider Emergency Medicine
DX: I89.0 Lymphedema, not elsewhere classified (principal); J44.9 Chronic obstructive pulmonary disease, unspecified; I27.21 Secondary pulmonary arterial hypertension; K50.90 Crohn's disease, unspecified, without complications; Z74.09 Other reduced mobility; I10 Essential (primary) hypertension; M25.60 Stiffness of unspecified joint, not elsewhere classified; R79.89 Other specified abnormal findings of blood chemistry; F17.210 Nicotine dependence, cigarettes, uncomplicated; Z86.73 Personal history of transient ischemic attack (TIA), and cerebral infarction without residual deficits; Z79.02 Long term (current) use of antithrombotics/antiplatelets; Z79.82 Long term (current) use of aspirin; Z79.899 Other long term (current) drug therapy
CPT/HCPCS: 80053; 85025; 99282

== ENCOUNTER 2021-11-09 18:53 | Inpatient (IN) | payer MEDICARE, SELFPAY ==
[2021-11-09] VITALS (16 sets, daily range): BP systolic 126–165; BP diastolic 72–97; PULSE 94–127; RESP 12–32; TEMP 37.2–37.6; O2SAT 3–100; BMI 21.2; BMI 20.7
--- NOTE | 2021-11-09 19:20 | EKG12_ITS ---
Test Reason : DYSRHYTHMIA Blood Pressure : / mmHG Vent. Rate : 113 BPM Atrial Rate : 113 BPM P-R Int : 150 ms QRS Dur : 078 ms QT Int : 320 ms P-R-T Axes : 080 041 078 degrees QTc Int : 438 ms Sinus tachycardia Nonspecific ST and T wave abnormality Abnormal ECG Confirmed by CHRIS BRYANT, JASON ([id number]), editor producer MARIA DOLORES SULLIVAN ([id number]) on 11/11/2021 10:00:35 AM Referred By: LAZARO Confirmed By:YULIANA PEREZ MD
[2021-11-09] MEDS: Ipratropium/Albuterol Sulfate 3 ML AMPUL.NEB INHALATION (19:23)
--- NOTE | 2021-11-09 19:23 | ED.VIS.DYS ---
HPI History of Present Illness Chief Complaint: Shortness of Breath Detail of Chief Complaint: 71-year-old COPD patient [facility] typically on 3 L. Informant: patient Onset/Context/Timing Onset: Today and Hours Context: gradual Timing: Continuous Quality: Positive for Wheezing Current Severity: Moderate Maximum Severity: Moderate Worsened by: Exertion, Lying flat and Coughing Relieved by: Rest and Oxygen Associated Symptoms cough; Negative for rhinorrhea, post nasal drip, ear pain, fever, sore throat, subjective, chills, sweats, clear sputum, white sputum, yellow sputum, green sputum or other Chest Pain: Positive for None Narrative Narrative: 71-year-old female history of COPD on 3 L [facility]2 [facility]. Also history of prior stroke, hypertension and lupus. No history of chest pain. No hemoptysis. No history of DVT or PE. States that today she started having shortness of breath with a lot of wheezing. She has a chronic cough that has not changed. Her phlegm has not changed. No hemoptysis. No chest pain. No prior DVT or PE. PE Risk Factors: Negative for Cancer, OCP + Smoking + > 35, Prior DVT or PE, Recent immobilization, Recent surgery or Recent travel Prior similar symptoms: Yes Recent Illness/Hospitalization: No PFSH PFS Medical History Bronchitis COPD (chronic obstructive pulmonary disease) Crohn disease CVA (cerebral vascular accident) History of anxiety History of bronchitis History of CVA (cerebrovascular accident) History of pacemaker HTN (hypertension) Hyponatremia left sided paresthesias Lupus Nicotine dependence Psoriasis Secondary pulmonary arterial hypertension Ventricular tachycardia Home Medications atorvastatin 80 mg tablet 80 mg PO QHS blood pressure 08/21/18 [History Last Taken 08/20/18] azathioprine 50 mg tablet 50 mg PO DAILY@0800 chronic diarrhea 08/21/18 [History Last Taken 08/21/18] clopidogrel 75 mg tablet 75 mg PO DAILY blood thinner 08/21/18 [History Last Taken 08/21/18] fluticasone 250 mcg-salmeterol 50 mcg/dose blistr powdr for inhalation 1 ea IH BID breathing 08/21/18 [History Last Taken 08/21/18] aspirin 81 mg chewable tablet 81 mg PO DAILY@0800 heart VerticalResponse #90 tabs 03/31/19 [Rx Last Taken Unknown] citalopram 40 mg tablet 40 mg PO DAILY Check with primary doctor 12/25/19 [History Last Taken Unknown] albuterol sulfate 90 mcg/actuation aerosol inhaler 1 puff inhalation Q6H PRN PRN Wheezing 01/21/20 [History Last Taken Unknown] loperamide 2 mg capsule 2 mg PO Q6H PRN PRN Diarrhea 01/21/20 [History Last Taken Unknown] alendronate 70 mg tablet 70 mg PO Q7D@0700 02/10/20 [Rx Last Taken Unknown] melatonin 10 mg sublingual tablet 10 mg PO QHS 02/10/20 [Rx Last Taken Unknown] acetaminophen 500 mg tablet (Tylenol Extra Strength) 1,000 mg PO Q6H PRN Pain 02/16/20 [History Last Taken Unknown] amlodipine 10 mg tablet 10 mg PO DAILY 02/16/20 [History Last Taken Unknown] ferrous sulfate 325 mg (65 mg iron) tablet 325 mg PO DAILY 02/16/20 [History Last Taken Unknown] polyethylene glycol 3350 17 gram/dose oral powder (Miralax) 17 g PO DAILY 02/16/20 [History Last Taken Unknown] triamcinolone acetonide 0.1 % lotion 1 applic topical BID PRN Itching 02/16/20 [History Last Taken Unknown] metoprolol succinate 50 mg tablet,extended release 24 hr 50 mg PO DAILY blood pressure #90 tabs 08/23/20 [Rx Last Taken Unknown] ipratropium 0.5 mg-albuterol 3 mg (2.5 mg base)/3 mL nebulization soln 3 ml inhalation Q6HWA.RT #0 mL 03/18/21 [Rx Last Taken Unknown] lisinopril 40 mg tablet 40 mg PO DAILY #0 tabs 03/18/21 [Rx Last Taken Unknown] pramipexole 0.25 mg tablet 0.25 mg PO QHS #0 tabs 03/18/21 [Rx Last Taken Unknown] tizanidine 4 mg capsule (Zanaflex) 4 mg PO QHS PRN Muscle Spasm 07/25/21 [History Last Taken Unknown] guaifenesin 600 mg tablet,extended release 600 mg PO BID 11/09/21 [History Last Taken Unknown] Allergy/AdvReac Type Severity Reaction Status Date / Time No Known Allergies Allergy Verified 11/09/21 18:54 Family History Father Hypertension Lung cancer Mother Lupus Sister Crohn's disease Surgical History History of appendectomy History of appendectomy History of blepharoplasty History of carpal tunnel release History of cataract surgery History of loop recorder History of tubal ligation Status post blepharoplasty of both eyes Status post placement of implantable loop recorder Social History household members: none Smoking Status: Current some day smoker tobacco type: cigarettes alcohol intake: current details: Occasionally substance use type: does not use ROS ROS ED ROS Narrative Shortness of breath. Wheezing. Review of Systems ROS Unobtainable: Denies due to encephalopathy Constitutional Constitutional ED: Denies chills or fever(s) Eyes Eyes: Denies blurry vision ENT ENT ED: Denies ear pain Cardiovascular Cardiovascular: Denies chest pain Respiratory/Chest Respiratory/Chest: Reports cough and dyspnea Gastrointestinal Gastrointestinal: Denies abdominal pain Genitourinary Genitourinary ED: Denies dysuria or hematuria Musculoskeletal Musculoskeletal: Denies arthralgias Integumentary Denies abscess or Abrasions Neurologic Neurologic: Denies headache(s) Psychiatric Psychiatric: Denies anxiety Endocrine Endocrinology: Denies cold intolerance Hematologic/Lymphatic Hematologic/Lymphatic: Denies easy bleeding Allergic/Immunologic Allergic/Immunologic ED: Denies mouth swelling EXAM Physical Exam Narrative Exam Narrative: 71-year-old female vital signs stable tachycardic to 110 7 respiratory rate of 32. 97% on 4 L. He is actively wheezing. Tripoding. Working to breathe. H EENT exam unremarkable. Moist extremities. Neck nontender. No JVD. No lymphadenopathy. Lungs prolonged expiratory phase. Wheezing throughout both sides in all lung parada. No rales or rhonchi. Accessory muscle use. Decreased air movement. Heart tachycardic rate of 110. Chest wall nontender. Abdomen soft nontender. Moving all 4 extremities. Chronic lymphedema both lower extremities are wraps on. Neurologically she is awake and alert with no focal motor deficits. Patient is working abrades but does not need intubated at this time. Const Vital Signs: 11/09/21 18:54 11/09/21 19:04 11/09/21 19:17 Temperature 99 F 99 F Temperature Source Temporal Temporal Pulse Rate 110 H 110 H Respiratory Rate 32 H 32 H Respiratory Effort Short of Breath Respiratory Depth Respiratory Pattern Tachypnea Blood Pressure 133/87 H 133/87 H Blood Pressure Mean 102 102 Pulse Ox 97 97 Oxygen Delivery Method Nasal Cannula Nasal Cannula Oxygen Flow Rate (L/min) 4 4 Fraction of Inspired Oxygen (FIO2) 11/09/21 19:27 11/09/21 19:56 11/09/21 19:45 Temperature Temperature Source Pulse Rate 107 H 117 H Respiratory Rate 23 H 27 H Respiratory Effort Respiratory Depth Respiratory Pattern Tachypnea Blood Pressure Blood Pressure Mean Pulse Ox 95 91 Oxygen Delivery Method Nasal Cannula Bi-pap Oxygen Flow Rate (L/min) 5 Fraction of Inspired Oxygen (FIO2) 60 11/09/21 19:23 11/09/21 19:23 11/09/21 20:14 Temperature Temperature Source Pulse Rate 106 H 99 Respiratory Rate 26 H 26 H 28 H Respiratory Effort Short of Breath Labored Accessory Muscle Use Respiratory Depth Shallow Respiratory Pattern Tachypnea Tachypnea Blood Pressure Blood Pressure Mean Pulse Ox 88 98 Oxygen Delivery Method Nasal Cannula Bi-pap Oxygen Flow Rate (L/min) 6 Fraction of Inspired Oxygen (FIO2) 11/09/21 20:14 11/09/21 20:31 11/09/21 21:03 Temperature 99 F 98.9 F Temperature Source Temporal Temporal Pulse Rate 99 94 Respiratory Rate 28 H 25 H Respiratory Effort Respiratory Depth Respiratory Pattern Blood Pressure 133/87 H 126/72 H 138/84 H Blood Pressure Mean 102 90 102 Pulse Ox 98 100 Oxygen Delivery Method Bi-pap Bi-pap Oxygen Flow Rate (L/min) 5 Fraction of Inspired Oxygen (FIO2) 60 30 11/09/21 21:04 Temperature 98.9 F Temperature Source Temporal Pulse Rate 94 Respiratory Rate 25 H Respiratory Effort Respiratory Depth Respiratory Pattern Blood Pressure 138/84 H Blood Pressure Mean 102 Pulse Ox 100 Oxygen Delivery Method Bi-pap Oxygen Flow Rate (L/min) 5 Fraction of Inspired Oxygen (FIO2) 30 Positive well nourished and well developed; Negative for obese, cachectic, contractures or unkempt General Appearance ED: well developed; Negative for unkempt, cachectic, contractures, NAD or pallor Nutritional Appearance: Negative for cachectic or obese HEENT Reports moist mucous membranes; Denies dry mucous membranes atraumatic; Negative for trauma Mouth ED: No dry mucous membranes Mouth: No dry mucous membranes Eyes PERRL and EOMs intact bilaterally General Eye ED: Negative for pale conjunctiva or scleral icterus Neck no lymphadenopathy, supple, no meningeal signs and no JVD General: Negative for tenderness Lymph Lymphatic: Negative for other Resp No normal respiratory effort and No clear to auscultation bilaterally Resp Narrative: Accessory muscle use. Working to breathe. Increased respiratory effort and rate. Wheezing throughout all lung parada. Prolonged expiratory phase. Decreased air movement. Auscultation: wheezes and diminished lung sounds; Negative for rales or rhonchi Cardio regular rhythm, S1 normal heart sound, S2 normal heart sound and no murmurs; Negative for regular rate Rate: tachycardic; Negative for bradycardia Rhythm: Negative for abnormal rhythm GI non-tender, non-distended and no masses Inspection: Negative for other Auscultation: normoactive bowel sounds Palpation: soft; Negative for tender Back/Spine no CVA tenderness and normal to inspection General Back: Negative for CVA tenderness Extremity Negative for normal to inspection Extremity Narrative: Bilateral lower extremity edema chronic. Nontender. General Extremety ED: Yes edema; Negative for tenderness General Extremity: edema Neuro oriented x3 Sensorium / Orientation: alert, oriented to person, oriented to place and oriented to time; Negative for orientation impaired, confused, lethargic or stuporous Speech: speech normal Motor Exam: strength 5/5 throughout Psych mental status grossly normal Appearance: Negative for unkempt Attitude: No agitated Mood & Affect: Negative for depressed Thought Process: normal thought process Skin no wounds General Skin Exam: Negative for jaundice or pallor Lesions: no lesions Rashes: no rashes Trauma: Negative for abrasion MDM MDM MDM Narrative Medical decision making narrative: 71-year-[facility] patient with COPD flare and shortness of breath. Will be treated with aerosols both DuoNeb and albuterol. IV Solu-Medrol. Reassess. She will undergo a cardiac/respiratory work-up. Repeat exam at 8:15 PM patient is doing somewhat better. Breathing is improving. She is moving better air. She is on BiPAP. She has been treated with IV Solu-Medrol and aerosol treatments. She is starting to feel somewhat improved. She will need admitted. I discussed with her her labs. And I will shortly page the hospitalist. Repeat exam patient doing much better 10 PM. Still wheezing but much improved. Breathing much easier. She has been taken off the BiPAP and is on her normal 3 L with a pulse ox in the mid to high 90s. I spoken to the hospitalist. Patient will be admitted to [facility] [place]. Lab Data Attestation: I reviewed the patient's lab results. Lab results narrative: CBC shows a white count of 16.5. H&H 11.5 and 34.8. Platelets 220. Electrolytes show hyponatremia with sodium 128. Gap of 7 BUN and creatinine 22 and 0.8. Glucose 125. Troponin normal at 9. Labs: Laboratory Results - last 24 hr 11/09/21 11/09/21 11/09/21 19:43 19:43 19:43 WBC 16.5 H RBC 3.43 L Hgb 11.5 L Hct 34.8 L MCV 101.5 H MCH 33.5 H MCHC 33.0 RDW Std Deviation 50.6 H RDW Coeff of Marcelo 13.7 Plt Count 220 MPV 9.0 Immature Gran % (Auto) 0.700 Neut % (Auto) 93.2 H Lymph % (Auto) 1.8 L Clarke % (Auto) 3.7 Eos % (Auto) 0.4 Baso % (Auto) 0.2 Absolute Neuts (auto) 15.4 H Absolute Lymphs (auto) 0.29 L Nucleated RBC % 0 Differential Comment Platelet Estimate ADEQUATE RBC Morphology NORM C+C Sodium 128 L Potassium 3.9 Chloride 93 L Carbon Dioxide 28.0 Anion Gap 7 BUN 22 H Creatinine 0.84 Estim Creat Clear Calc 52.29 Est GFR (MDRD) Af Amer 86 Est GFR (MDRD) Non-Af 71 BUN/Creatinine Ratio 26.1 H Glucose 125 H Calcium 8.9 Troponin I High Sens 9 Radiography Chest X-Ray - ED: 1 View, Read by ED Physician, Read by Radiologist, Heart, Lungs, Mediastinum, Bony Structures, No Acute Disease and Chronic Changes Diagnostic Testing: Clinical Impression(s) from Imaging Studies Chest X-Ray 11/09/21 20:26 IMPRESSION: Normal x-ray examination of the chest. Electronically Signed: Elise De Guzman MD at 21:25 EDT Reading Location ID and State: [id number] / Tel , Service support , Chest x-ray, portable, single view shows no acute abnormality. Normal cardiac silhouette. Chronic changes. No infiltrate. Read both by the hospitalist and myself. Rhythm Strip Rhythm Strip: Sinus Tach Rate: 113 Ectopy: None EKG Initial EKG: Attestation: I personally reviewed and interpreted this EKG as follows: Interpretation: No Acute Injury Pattern and Sinus Tachycardia Comments: Sinus tachycardia rate of 113. Artifact from her respiratory effort. There is ST depression in V3 through V6. No signs of acute NC. No ST elevation. Critical Care Time Critical Care Time: Yes Critical care time (excluding procedures): 30-74 minutes, Including time spent:, Discussing w/Patient &/or Family/Manufacturing Engineer, Discussing w/Consultants, Arranging Admission or Transfer, Performing Direct Patient Care at Bedside and - (34 min) Discharge Plan Dx/Rx/DC Orders Clinical Impression: COPD exacerbation, Respiratory failure, History of stroke, History of lupus, Acute hyponatremia Disposition Disposition: Acute Care [facility]
[2021-11-09] MEDS: Albuterol 2.5 MG/3 ML VIAL.NEB. INHALATION ×2 (19:36→19:47)
[2021-11-09] MEDS: MethylPREDNISolone 125 MG/2 ML Vial IV (19:46)
[2021-11-09 19:55] LABS: Absolute Lymphocyte Count 0.29 X10^3/uL (0.83-4.51); Absolute Neutrophil Count 15.4 X10^3/uL (2.0-7.7); Basophil# 0.03 X10^3/uL; Basophil% 0.2 % (0-1); Eosinophil# 0.06 X10^3/uL; Eosinophils% 0.4 % (0-5); Hematocrit 34.8 % (37-47); Hemoglobin 11.5 g/dL (12.0-15.0); Lymphocyte # 0.29 X10^3/ul (0.83-4.51); Lymphocyte % 1.8 % (19-41); Mean Corpuscular Hgb 33.5 pg (27.0-32.0); Mean Corpuscular Volume 101.5 fL (81-99); Monocyte# 0.62 X10^3/uL; Monocyte% 3.7 % (0-10); NRBC Flagged by Analyzer 0 % (0-5); Neutrophil # 15.43 X10^3/uL (2.7-7.7); Neutrophil % 93.2 % (47-70); POSITIVE DIFFERENTIAL YES; Platelet Count 220 K/mm3 (150-450); RBC Distribution Width CV 13.7 % (11.6-14.6); RBC Distribution Width SD 50.6 fl (35.1-43.9); Red Blood Count 3.43 M/mm3 (4.2-5.4); White Blood Count 16.5 K/mm3 (4.4-11.0)
[2021-11-09 19:57] LABS: Differential Indicated SCAN CRITERIA MET
--- NOTE | 2021-11-09 20:03 | CPS ---
x2 Albuterol given in additional in ER
[2021-11-09 20:25] LABS: Anion Gap 7 (5-15); BUN 22 mg/dL (7-18); BUN/Creat Ratio 26.1 RATIO (10-20); Calcium,Total 8.9 mg/dL (8.5-10.1); Chloride 93 mmol/L (98-107); Creatinine, Serum 0.84 mg/dL (0.55-1.02); EST Glomerular Filtration Rate 71 mL/min (>60); Est Glom Filt Rate - Afr Amer 86 mL/min (>60); Estimated Creatinine Clearance 52.29 ml/min; Glucose 125 mg/dL (74-106); Potassium 3.9 mmol/L (3.5-5.1); Sodium Level 128 mmol/L (136-145)
--- NOTE | 2021-11-09 20:26 | RAD_ITS ---
STUDY: X-RAY CHEST REASON FOR EXAM: Female, 71 years old. chest pain TECHNIQUE: Single AP portable view of the chest. COMPARISON: 08/21/2018. FINDINGS: The lungs are clear and expanded. There is no demonstrated pleural abnormality. Normal size heart. Normal mediastinum and judy. Normal visualized pulmonary arteries. Normal visualized aortic arch and descending thoracic aorta. Normal visualized thoracic spine. Normal visualized ribs, clavicles, and shoulders. There is no demonstrated abnormality of the visualized soft tissue structures of the upper abdomen. RAD/Chest 1 View (Portable) IMPRESSION: Normal x-ray examination of the chest. Electronically Signed: Elise De Guzman MD at 21:25 EDT Reading Location ID and State: [id number] / Tel , Service support ,
[2021-11-09 20:55] LABS: Platelet Estimate ADEQUATE (ADEQ); Red Cell Morphology NORM C+C NORMAL (NORM C&C)
[2021-11-09 20:59] LABS: Troponin-I HS 9 pg/mL (3.0-54.0)
--- NOTE | 2021-11-09 21:51 | CPS ---
Pt.'s breathing has improved significantly, and her SpO2 has maintain at 100% on 30% FiO2 when wearing BiPAP. Pt. transitioned to 3L NC, and she is still oxygenating appropriately. Dr. Zamudio notified of pt.'s respiratory improvement.
--- NOTE | 2021-11-09 21:52 | PCM.HP.STD ---
HPI - General General Date of Admission: 11/09/21 Date of Service: 11/09/21 Chief Complaint: shortness of breath HPI Narrative DONAL JOHNSON, is a 71 F with a PMH as outlined who presents via the ED with a complaint of shortness of breath. She is usually on 3L in her SNF, and felt very short of breath today on her baseline 2L of oxygen. She admitted to a chronic productive cough which hadnt changed. She denied any chest pain, palpitations, dizziness, nausea or vomiting; she did admit to wheezing. Review of systems was otherwise negative. Vitals were BP of 138/84, RR of 25 and oxygen sats of 100% on BIPAP with 5L of oxygen and FiO2 of 30%. CBC showed hb of 11.5, wbc of 16.5 and platelets of 220. Chemistry showed sodium of 128 and bicarb of 28; Cr was 0.84 and initial high sensitivity troponin was 9. CXR showed no acute cardiopulmonary process. She is being admitted to be managed for acute on chronic hypoxic respiratory failure due to COPD exacerbation. [facility] Medical History Bronchitis COPD (chronic obstructive pulmonary disease) Crohn disease CVA (cerebral vascular accident) History of anxiety History of bronchitis History of CVA (cerebrovascular accident) History of pacemaker HTN (hypertension) Hyponatremia left sided paresthesias Lupus Nicotine dependence Psoriasis Secondary pulmonary arterial hypertension Ventricular tachycardia Home Medications atorvastatin 80 mg tablet 80 mg PO QHS blood pressure 08/21/18 [History Last Taken 08/20/18] azathioprine 50 mg tablet 50 mg PO DAILY@0800 chronic diarrhea 08/21/18 [History Last Taken 08/21/18] clopidogrel 75 mg tablet 75 mg PO DAILY blood thinner 08/21/18 [History Last Taken 08/21/18] fluticasone 250 mcg-salmeterol 50 mcg/dose blistr powdr for inhalation 1 ea IH BID breathing 08/21/18 [History Last Taken 08/21/18] aspirin 81 mg chewable tablet 81 mg PO DAILY@0800 heart health #90 tabs 03/31/19 [Rx Last Taken Unknown] citalopram 40 mg tablet 40 mg PO DAILY Check with primary doctor 12/25/19 [History Last Taken Unknown] albuterol sulfate 90 mcg/actuation aerosol inhaler 1 puff inhalation Q6H PRN PRN Wheezing 01/21/20 [History Last Taken Unknown] loperamide 2 mg capsule 2 mg PO Q6H PRN PRN Diarrhea 01/21/20 [History Last Taken Unknown] alendronate 70 mg tablet 70 mg PO Q7D@0700 02/10/20 [Rx Last Taken Unknown] melatonin 10 mg sublingual tablet 10 mg PO QHS 02/10/20 [Rx Last Taken Unknown] acetaminophen 500 mg tablet (Tylenol Extra Strength) 1,000 mg PO Q6H PRN Pain 02/16/20 [History Last Taken Unknown] amlodipine 10 mg tablet 10 mg PO DAILY 02/16/20 [History Last Taken Unknown] ferrous sulfate 325 mg (65 mg iron) tablet 325 mg PO DAILY 02/16/20 [History Last Taken Unknown] polyethylene glycol 3350 17 gram/dose oral powder (Miralax) 17 g PO DAILY 02/16/20 [History Last Taken Unknown] triamcinolone acetonide 0.1 % lotion 1 applic topical BID PRN Itching 02/16/20 [History Last Taken Unknown] metoprolol succinate 50 mg tablet,extended release 24 hr 50 mg PO DAILY blood pressure #90 tabs 08/23/20 [Rx Last Taken Unknown] ipratropium 0.5 mg-albuterol 3 mg (2.5 mg base)/3 mL nebulization soln 3 ml inhalation Q6HWA.RT #0 mL 03/18/21 [Rx Last Taken Unknown] lisinopril 40 mg tablet 40 mg PO DAILY #0 tabs 03/18/21 [Rx Last Taken Unknown] pramipexole 0.25 mg tablet 0.25 mg PO QHS #0 tabs 03/18/21 [Rx Last Taken Unknown] tizanidine 4 mg capsule (Zanaflex) 4 mg PO QHS PRN Muscle Spasm 07/25/21 [History Last Taken Unknown] guaifenesin 600 mg tablet,extended release 600 mg PO BID 11/09/21 [History Last Taken Unknown] Allergy/AdvReac Type Severity Reaction Status Date / Time No Known Allergies Allergy Verified 11/09/21 18:54 Family History Father Hypertension Lung cancer Mother Lupus Sister Crohn's disease Surgical History History of appendectomy History of appendectomy History of blepharoplasty History of carpal tunnel release History of cataract surgery History of loop recorder History of tubal ligation Status post blepharoplasty of both eyes Status post placement of implantable loop recorder Social History household members: none Smoking Status: Current some day smoker tobacco type: cigarettes alcohol intake: current details: Occasionally substance use type: does not use ROS Constitutional Constitutional: Reports malaise and weakness; Denies anorexia, chills, fatigue or fever(s) Eyes Eyes: Denies change in vision ENT HEENT: Denies dysphagia or headache(s) Cardiovascular Cardiovascular: Reports dyspnea on exertion and rapid heart rate; Denies chest pain, edema, lightheadedness, orthopnea, palpitations, paroxysmal nocturnal dyspnea or syncope Respiratory/Chest Respiratory/Chest: Reports cough, dyspnea, productive cough, shortness of breath at rest, shortness of breath with exertion and wheezing; Denies excessive phlegm production or hemoptysis Gastrointestinal Gastrointestinal: Denies abdominal pain, constipation, dyspepsia, nausea or vomiting Genitourinary Genitourinary: Denies burning urination or dysuria Musculoskeletal Musculoskeletal: Denies arthralgias Neurologic Neurologic: Denies confusion, dizziness, focal weakness or headache(s) Psychiatric Psychiatric: Denies anxiety Hematologic/Lymphatic Hematologic/Lymphatic: Denies anemia Vital Signs Vital Signs Vital Signs: 11/09/21 18:54 11/09/21 19:04 11/09/21 19:17 Temperature 99 F 99 F Temperature Source Temporal Temporal Pulse Rate 110 H 110 H Respiratory Rate 32 H 32 H Respiratory Effort Short of Breath Respiratory Depth Respiratory Pattern Tachypnea Blood Pressure 133/87 H 133/87 H Blood Pressure Mean 102 102 Pulse Ox 97 97 Oxygen Delivery Method Nasal Cannula Nasal Cannula Oxygen Flow Rate (L/min) 4 4 Fraction of Inspired Oxygen (FIO2) 11/09/21 19:27 11/09/21 19:56 11/09/21 19:45 Temperature Temperature Source Pulse Rate 107 H 117 H Respiratory Rate 23 H 27 H Respiratory Effort Respiratory Depth Respiratory Pattern Tachypnea Blood Pressure Blood Pressure Mean Pulse Ox 95 91 Oxygen Delivery Method Nasal Cannula Bi-pap Oxygen Flow Rate (L/min) 5 Fraction of Inspired Oxygen (FIO2) 60 11/09/21 19:23 11/09/21 19:23 11/09/21 20:14 Temperature Temperature Source Pulse Rate 106 H 99 Respiratory Rate 26 H 26 H 28 H Respiratory Effort Short of Breath Labored Accessory Muscle Use Respiratory Depth Shallow Respiratory Pattern Tachypnea Tachypnea Blood Pressure Blood Pressure Mean Pulse Ox 88 98 Oxygen Delivery Method Nasal Cannula Bi-pap Oxygen Flow Rate (L/min) 6 Fraction of Inspired Oxygen (FIO2) 11/09/21 20:14 11/09/21 20:31 11/09/21 21:03 Temperature 99 F 98.9 F Temperature Source Temporal Temporal Pulse Rate 99 94 Respiratory Rate 28 H 25 H Respiratory Effort Respiratory Depth Respiratory Pattern Blood Pressure 133/87 H 126/72 H 138/84 H Blood Pressure Mean 102 90 102 Pulse Ox 98 100 Oxygen Delivery Method Bi-pap Bi-pap Oxygen Flow Rate (L/min) 5 Fraction of Inspired Oxygen (FIO2) 60 30 11/09/21 21:04 Temperature 98.9 F Temperature Source Temporal Pulse Rate 94 Respiratory Rate 25 H Respiratory Effort Respiratory Depth Respiratory Pattern Blood Pressure 138/84 H Blood Pressure Mean 102 Pulse Ox 100 Oxygen Delivery Method Bi-pap Oxygen Flow Rate (L/min) 5 Fraction of Inspired Oxygen (FIO2) 30 Weight Weight: 120 lb Body Mass Index (BMI) 21.2 Physical Exam Const alert and oriented x3 Constitutional Narrative: visibly short of breath General Appearance: cooperative HEENT normocephalic, head/scalp atraumatic and hearing grossly normal bilaterally HEENT Narrative: dry oral mucosa Eyes PERRL, EOMs intact bilaterally and conjunctivae normal Neck no lymphadenopathy and supple Resp Resp Narrative: tachypneic, bilateral coarse wheezing, no crackles. increased work of breathing, on BIPAP Cardio regular rhythm, S1 normal heart sound, S2 normal heart sound and no murmurs Cardio Narrative: tachycardic GI normal to inspection, nondistended, normoactive bowel sounds, soft to palpation, non-tender and non-distended Extremity normal to inspection, full ROM and no clubbing, cyanosis or edema Neuro oriented x3, CN's II-XII intact bilaterally and moves all extremities Sensorium / Orientation: awake and alert Motor Exam: strength 5/5 throughout Psych affect normal Results Lab / Micro Data Result Diagrams: 11/09/21 19:43 11/09/21 19:43 Labs: Laboratory Results - last 24 hr 11/09/21 19:43: WBC 16.5 H, RBC 3.43 L, Hgb 11.5 L, Hct 34.8 L, MCV 101.5 H, MCH 33.5 H, MCHC 33.0, RDW Std Deviation 50.6 H, RDW Coeff of Marcelo 13.7, Plt Count 220, MPV 9.0, Immature Gran % (Auto) 0.700, Neut % (Auto) 93.2 H, Lymph % (Auto) 1.8 L, [place] % (Auto) 3.7, Eos % (Auto) 0.4, Baso % (Auto) 0.2, Absolute Neuts (auto) 15.4 H, Absolute Lymphs (auto) 0.29 L, Nucleated RBC % 0, Differential Comment , Platelet Estimate ADEQUATE, RBC Morphology NORM C+C 11/09/21 19:43: Sodium 128 L, Potassium 3.9, Chloride 93 L, Carbon Dioxide 28.0, Anion Gap 7, BUN 22 H, Creatinine 0.84, Estim Creat Clear Calc 52.29, Est GFR (MDRD) Af Amer 86, Est GFR (MDRD) Non-Af 71, BUN/Creatinine Ratio 26.1 H, Glucose 125 H, Calcium 8.9 11/09/21 19:43: Troponin I High Sens 9 Rhythm Strip Rhythm Strip: Sinus Tach Rate: 113 Ectopy: None Radiology Impression Chest X-Ray 11/09/21 20:26 IMPRESSION: Normal x-ray examination of the chest. Electronically Signed: Elise De Guzman MD at 21:25 EDT Reading Location ID and State: [id number] / Tel , Service support , Assessment & Plan Assessment/Plan (1) COPD exacerbation: (2) Respiratory failure: PLAN: Plan #Acute on chronic hypoxic respiratory failure due to COPD exacerbation Admit to PCU on account of patient's tachycardia and tachypnea and patient still being on BiPAP Chest x-ray showed no acute cardiopulmonary process. Patient has bilateral coarse wheezing Start on IV Solu-Medrol and breathing treatment with bronchodilators. Also started on IV levofloxacin. Chest physiotherapy #Hyponatremia: Sodium is 128. This is likely due to dehydration. Check urine electrolytes and check serum osmolality. Hydrate with IV fluids and trend sodium. #Hypertension: On amlodipine, lisinopril and metoprolol #History of SLE #CAD: On aspirin and Plavix as well as statin #History of Crohn's disease: On azathioprine DVT prophylaxis: lovenox Code status: Full code Papers from skilled nursing record showed patient is DNR CCA with intubation. I sought to clarify this with patient and she told me she did not even know she was DNR CCA. She tells me she wants CPR and intubation if needed. Patient is therefore full code for this admission Total [id number] time 18 minutes. Charges/Coding Visit Charges Inpatient E&M: 75348 Init Hosp L3 Procedures Hospitalists Procedures: 95332 Advncd Care Plan 30 Min
[2021-11-10] VITALS (24 sets, daily range): BP systolic 123–160; BP diastolic 67–101; PULSE 75–105; RESP 12–28; TEMP 36.4–37; O2SAT 94–100
[2021-11-10] MEDS: 0.9% Normal Saline 1,000 ML 100 ML IV (00:16)
[2021-11-10] MEDS: Albuterol 2.5 MG/3 ML VIAL.NEB. INHALATION (01:57)
[2021-11-10 06:17] LABS: Absolute Neutrophil Count 12.4 X10^3/uL (2.0-7.7); Basophil# 0.02 X10^3/uL; Basophil% 0.2 % (0-1); Hematocrit 33.3 % (37-47); Lymphocyte % 0.8 % (19-41); Mean Corpuscular Hgb 34.1 pg (27.0-32.0); Mean Corpuscular Volume 103.1 fL (81-99); Mean Platelet Vol. 9.4 fl (6.2-12.0); Monocyte# 0.18 X10^3/uL; Monocyte% 1.4 % (0-10); NRBC Flagged by Analyzer 0 % (0-5); Neutrophil % 96.7 % (47-70); POSITIVE DIFFERENTIAL YES; Platelet Count 189 K/mm3 (150-450); RBC Distribution Width CV 13.7 % (11.6-14.6); RBC Distribution Width SD 52.2 fl (35.1-43.9); Red Blood Count 3.23 M/mm3 (4.2-5.4); White Blood Count 12.8 K/mm3 (4.4-11.0)
[2021-11-10 06:23] LABS: Differential Indicated SCAN CRITERIA MET
[2021-11-10] MEDS: LORazepam 2 MG/ML Syringe 1 MG IV (06:30)
[2021-11-10] MEDS: Ipratropium/Albuterol Sulfate 3 ML AMPUL.NEB INHALATION ×3 (06:34→19:29)
[2021-11-10 06:43] LABS: Macrocytosis 1+
[2021-11-10 06:53] LABS: Anion Gap 9 (5-15); BUN 27 mg/dL (7-18); BUN/Creat Ratio 29.8 RATIO (10-20); Calcium,Total 8.8 mg/dL (8.5-10.1); Chloride 92 mmol/L (98-107); EST Glomerular Filtration Rate 66 mL/min (>60); Est Glom Filt Rate - Afr Amer 79 mL/min (>60); Glucose 151 mg/dL (74-106); Potassium 4.3 mmol/L (3.5-5.1); Sodium Level 129 mmol/L (136-145)
[2021-11-10 06:56] LABS: Troponin-I HS 41 pg/mL (3.0-54.0)
--- NOTE | 2021-11-10 07:27 | CON.PCM.CC_ITS ---
Assessment & Plan Assessment/Plan (1) COPD exacerbation: PLAN: Plan RECOMMENDATIONS: 1. Check COVID antigen and respiratory viral panel. 2. Obtain CTA chest to rule out pulmonary embolism. 3. Continue azithromycin as ordered. 4. Continue scheduled bronchodilators and IV steroids. 5. Stop continuous IV fluids. 6. Check arterial blood gas. 7. Wean oxygen for saturations at or above 90%. IMPRESSIONS: 1. Acute on chronic hypoxemic respiratory failure The patient has a known history of end-stage COPD based upon PFTs completed in 2019. In the interim, the patient has continued to smoke cigarettes daily. She is not currently followed by a command post superintendent, but does have a baseline oxygen requirement of 3 L/min. Recommend continuing supplemental oxygen for saturations at or above 90%. Continue BiPAP therapy as tolerated throughout the day as needed and nightly. Continue scheduled bronchodilators and IV steroids. Check COVID antigen and respiratory viral panel. In addition, obtain CTA chest to rule out pulmonary embolism, given the lack of infiltrates noted on plain film chest x-ray. 2. Chronic tobacco dependency I personally spent 3 minutes discussing the deleterious effects of continued tobacco use with the patient, including modalities which could be utilized to achieve a smoke-free lifestyle. Nicotine replacement therapy can be offered to the patient while admitted to the hospital. 3. History of hypertension/SLE/coronary artery disease/Crohn's disease Complicates care, management, recovery and prognosis. Continue home medications as indicated. This note was generated with [employer] dictation software. It may contain incorrect words, spelling, and punctuation that were not noted in checking the note before signing. HPI Consult Data Date of Consult: 11/10/21 HPI Narrative Reason for Consultation: Acute on chronic hypoxemic respiratory failure HPI Narrative: The patient is a 71-year-old female, with a history as outlined below, who presented from her assisted facility with worsening shortness of breath. The patient has a known history of end-stage COPD, based upon pulmonary function studies last completed in November 2019. In addition, the patient has a baseline 3 L/min supplemental oxygen requirement. She does not currently follow with an outside command post superintendent. She has an extensive tobacco abuse history and continues to smoke 0.5 packs of cigarettes per day. On presentation to the emergency department, the patient was noted to be afebrile and hemodynamically stable. She was, nevertheless, notably tachycardic and tachypneic. Initial laboratory evaluation revealed a elevated white blood cell count to 16,000. Chemistry profile was notable for a sodium of 128, chloride of 93 and normal creatinine. Troponin was unremarkable. Initial chest x-ray showed no acute cardiopulmonary process. Ultimately, the patient required the initiation of BiPAP therapy. She was placed on azithromycin, bronchodilators and steroids. The patient was then admitted to the progressive care unit for further management. [facility] Medical History (Updated 11/10/21 @ 08:[address] Zuhair Martinez, DO) Anxiety Asthma Bronchitis COPD (chronic obstructive pulmonary disease) Crohn disease CVA (cerebral vascular accident) History of anxiety History of bronchitis History of CVA (cerebrovascular accident) History of pacemaker HTN (hypertension) Hyponatremia left sided paresthesias Lupus Nicotine dependence On home oxygen therapy Psoriasis Rheumatoid arthritis Secondary pulmonary arterial hypertension Smoker Ventricular tachycardia Home Medications atorvastatin 80 mg tablet 80 mg PO QHS blood pressure 08/21/18 [History Last Taken 11/08/21] azathioprine 50 mg tablet 50 mg PO DAILY@0800 chronic diarrhea 08/21/18 [History Last Taken 11/09/21] clopidogrel 75 mg tablet 75 mg PO DAILY blood thinner 08/21/18 [History Last Taken 11/09/21] aspirin 81 mg chewable tablet 81 mg PO DAILY@0800 heart [employer] #90 tabs 03/31/19 [Rx Last Taken 11/09/21] citalopram 40 mg tablet 40 mg PO DAILY Check with primary doctor 12/25/19 [History Last Taken Unknown] albuterol sulfate 90 mcg/actuation aerosol inhaler 1 puff inhalation Q6H PRN PRN Wheezing 01/21/20 [History Last Taken 11/09/21] loperamide 2 mg capsule 2 mg PO Q6H PRN PRN Diarrhea 01/21/20 [History Last Taken Unknown] alendronate 70 mg tablet 70 mg PO Q7D@0700 02/10/20 [Rx Last Taken 11/07/21] melatonin 10 mg sublingual tablet 10 mg PO QHS 02/10/20 [Rx Last Taken 11/08/21] acetaminophen 500 mg tablet (Tylenol Extra Strength) 1,000 mg PO Q6H PRN Pain 02/16/20 [History Last Taken Unknown] amlodipine 10 mg tablet 10 mg PO DAILY blood pressure 02/16/20 [History Last Taken 11/09/21] ferrous sulfate 325 mg (65 mg iron) tablet 325 mg PO DAILY supplement 02/16/20 [History Last Taken 11/09/21] metoprolol succinate 50 mg tablet,extended release 24 hr 50 mg PO DAILY blood pressure #90 tabs 08/23/20 [Rx Last Taken 11/09/21] ipratropium 0.5 mg-albuterol 3 mg (2.5 mg base)/3 mL nebulization soln 3 ml inhalation Q6HWA.RT #0 mL 03/18/21 [Rx Last Taken 11/09/21] lisinopril 40 mg tablet 40 mg PO DAILY #0 tabs 03/18/21 [Rx Last Taken 11/09/21] pramipexole 0.25 mg tablet 0.25 mg PO QHS #0 tabs 03/18/21 [Rx Last Taken 11/08/21] tizanidine 4 mg capsule (Zanaflex) 4 mg PO QHS PRN Muscle Spasm 07/25/21 [History Last Taken 11/09/21] guaifenesin 600 mg tablet,extended release 600 mg PO BID 11/09/21 [History Last Taken Unknown] Allergy/AdvReac Type Severity Reaction Status Date / Time No Known Allergies Allergy Verified 11/09/21 18:54 Family History Father Hypertension Lung cancer Mother Lupus Sister Crohn's disease Surgical History History of appendectomy History of appendectomy History of blepharoplasty History of carpal tunnel release History of cataract surgery History of loop recorder History of tubal ligation Status post blepharoplasty of both eyes Status post placement of implantable loop recorder Social History household members: none Smoking Status: Current some day smoker tobacco type: cigarettes alcohol intake: current details: Occasionally substance use type: does not use ROS Constitutional Constitutional: Reports malaise and weakness Eyes Eyes: Denies blurry vision or change in vision ENT HEENT: Denies dizziness, dysphagia, epistaxis or headache(s) Cardiovascular Cardiovascular: Reports dyspnea Respiratory/Chest Respiratory/Chest: Reports chest tightness, dyspnea and wheezing Gastrointestinal Gastrointestinal: Denies abdominal pain, diarrhea, nausea or vomiting Genitourinary Genitourinary: Denies difficulty urinating Musculoskeletal Musculoskeletal: Denies arthralgias or back pain Integumentary Integumentary: Denies lesions, rash or skin ulcer Neurologic Neurologic: Denies abnormal gait or abnormal speech Psychiatric Psychiatric: Reports anxiety Endocrine Endocrinology: Reports fatigue Hematologic/Lymphatic Hematologic/Lymphatic: Denies easy bleeding or easy bruising Physical Exam Const alert Constitutional Narrative: Frail and cachectic in appearance. General Appearance: cooperative HEENT normocephalic and head/scalp atraumatic Eyes PERRL and EOMs intact bilaterally Neck supple General: trachea midline Chest Chest Narrative: Increased AP diameter Resp Effort and Inspection: tachypneic Auscultation: wheezes and diminished lung sounds Cardio regular rate and regular rhythm GI normal to inspection, nondistended, normoactive bowel sounds Extremity no clubbing, cyanosis or edema Skin no rashes or lesions noted Neuro CN's II-XII intact bilaterally and no focal motor deficits Psych Mood & Affect: flat affect Lab / Micro Data Result Diagrams: 11/10/21 05:25 11/10/21 05:25 Labs: Laboratory Results - last 24 hr 11/09/21 19:43: WBC 16.5 H, RBC 3.43 L, Hgb 11.5 L, Hct 34.8 L, MCV 101.5 H, MCH 33.5 H, MCHC 33.0, RDW Std Deviation 50.6 H, RDW Coeff of Marcelo 13.7, Plt Count 220, MPV 9.0, Immature Gran % (Auto) 0.700, Neut % (Auto) 93.2 H, Lymph % (Auto) 1.8 L, [place] % (Auto) 3.7, Eos % (Auto) 0.4, Baso % (Auto) 0.2, Absolute Neuts (auto) 15.4 H, Absolute Lymphs (auto) 0.29 L, Nucleated RBC % 0, Differential Comment , Platelet Estimate ADEQUATE, RBC Morphology NORM C+C 11/09/21 19:43: Sodium 128 L, Potassium 3.9, Chloride 93 L, Carbon Dioxide 28.0, Anion Gap 7, BUN 22 H, Creatinine 0.84, Estim Creat Clear Calc 52.29, Est GFR (MDRD) Af Amer 86, Est GFR (MDRD) Non-Af 71, BUN/Creatinine Ratio 26.1 H, Glucose 125 H, Calcium 8.9 11/09/21 19:43: Troponin I High Sens 9 11/10/21 05:25: WBC 12.8 H, RBC 3.23 L, Hgb 11.0 L, Hct 33.3 L, MCV 103.1 H, MCH 34.1 H, MCHC 33.0, RDW Std Deviation 52.2 H, RDW Coeff of Marcelo 13.7, Plt Count 189, MPV 9.4, Immature Gran % (Auto) 0.900, Neut % (Auto) 96.7 H, Lymph % (Auto) 0.8 L, [place] % (Auto) 1.4, Eos % (Auto) 0.0, Baso % (Auto) 0.2, Absolute Neuts (auto) 12.4 H, Absolute Lymphs (auto) 0.10 L, Nucleated RBC % 0, Macrocytosis 1+ 11/10/21 05:25: Sodium 129 L, Potassium 4.3, Chloride 92 L, Carbon Dioxide 28.0, Anion Gap 9, BUN 27 H, Creatinine 0.90, Estim Creat Clear Calc 48.80, Est GFR (MDRD) Af Amer 79, Est GFR (MDRD) Non-Af 66, BUN/Creatinine Ratio 29.8 H, Glucose 151 H, Calcium 8.8 11/10/21 05:25: Troponin I High Sens 41 Rhythm Strip Rhythm Strip: Sinus Tach Rate: 113 Ectopy: None Radiology Impression Chest X-Ray 11/09/21 20:26 IMPRESSION: Normal x-ray examination of the chest. Electronically Signed: Elise De Guzman MD at 21:25 EDT Reading Location ID and State: [id number] / Tel , Service support , Charges/Coding Visit Charges Inpatient E&M: 55818 Init Hosp L3 Behavior Interventions Behavior Intervention: 11116 Smoking Cessation 3-10 min
[2021-11-10 08:08] LABS: Troponin-I HS 40 pg/mL (3.0-54.0)
[2021-11-10 08:20] LABS: BNP,B-Type NATRIURETIC PEPTIDE 450.5 pg/mL (0-100)
--- NOTE | 2021-11-10 08:52 | CT_ITS ---
STUDY: CTA CHEST REASON FOR EXAM: Female, 71 years old. PE rule out. End-stage COPD. Increasing shortness of breath. RADIATION DOSAGE (If Supplied By Facility): CTDIvol = ( 7.41 ) mGy, DLP = ( 270.38 ) mGycm TECHNIQUE: The examination was performed with the intravenous administration of IV 100mL Isovue-370. Post-processing of the angiographic images was performed, with multiplanar reformation and 3D reconstruction. Individualized dose optimization techniques were used for this CT. COMPARISON: Comparison is made with prior chest radiograph dated 11/09/2021. FINDINGS: Normal enhancement of the main pulmonary artery and right and left pulmonary arteries. Normal enhancement of the bilateral peripheral pulmonary arteries. There is no demonstrated pulmonary embolism. There is atherosclerotic calcification of the aortic arch with tortuosity. There is no demonstrated aortic dissection. There are calcifications of the coronary arteries. Normal mediastinum. Normal hilar regions. Normal visualized trachea and bronchi. Hyperinflation. Diffuse emphysematous changes with bullous formation more prominent in the upper lobes. Focal infiltrate in the posterior medial segment of the right lower lobe. Normal pleura. Normal chest wall structures. There are degenerative changes of thoracic spine. There is a 7.3 mm cyst in the upper pole of the right kidney. 2.4 cm cyst in the upper lateral aspect of the right kidney. 1.2 cm cyst in the posterior midportion of the left kidney. Atherosclerotic ossification of the abdominal aorta. CT/CTA Chest W/WO Contrast IMPRESSION: Hyperinflation. Emphysema. No evidence of pulmonary embolism. Patchy infiltrate in the posterior medial segment of the right lower lobe. Electronically Signed: Ryan Yun MD at 10:17 EDT ,
--- NOTE | 2021-11-10 09:47 | CASEMGMT ---
Discharge Laboratory Engineer Patient is from [place]. Tammy blevins/debi assistant counsel sent updates via [facility] to [facility]. Tammy asked if patient needs pre-cert to return back to [place]. Will follow up. Plan: Racquel Goodwin Discharge Laboratory Engineer
--- NOTE | 2021-11-10 09:51 | CASEMGMT ---
SW reviewed chart and patient is from [place]. SW met with patient, introduced self and role at [facility]. SW asked patient if she plans on going back to [place] at discharge. Patient said she does plan on returning to [place]. SW asked patient if she would like a list of other facilities and patient declined stating she is fine with [facility]. SW let patient know SW will keep [facility] updated. YAJAIRA asked Tammy d/c planning manager to please send updates to [place] and inquire if patient needs insurance authorization to return. Plan: d/c back to [place] when ready.
[2021-11-10] MEDS: Enoxaparin 40 MG/0.4 ML Syringe SC (10:19)
[2021-11-10] MEDS: guaiFENesin 600 MG Tablet PO ×2 (10:20→23:17)
[2021-11-10] MEDS: azaTHIOprine 50 MG Tablet PO (10:20)
[2021-11-10] MEDS: Citalopram 40 MG TABLET PO (10:20)
[2021-11-10] MEDS: amLODIPine 10 MG Tablet PO (10:20)
[2021-11-10] MEDS: Ferrous Sulfate 325 MG Tablet PO (10:20)
[2021-11-10] MEDS: Aspirin 81 MG TAB.CHEW PO (10:20)
[2021-11-10] MEDS: Lisinopril 40 MG Tablet PO (10:21)
[2021-11-10] MEDS: Metoprolol(XL)Succ 50 MG Tablet PO (10:21)
[2021-11-10] MEDS: Clopidogrel Bisulfate 75 MG Tablet PO (10:22)
[2021-11-10] MEDS: Polyethylene Glycol 3350 17 GM PACKET PO (10:22)
[2021-11-10] MEDS: Acetaminophen 500 MG Tablet 1000 MG PO (10:33)
[2021-11-10 12:48] LABS: Troponin-I HS 35 pg/mL (3.0-54.0)
--- NOTE | 2021-11-10 13:24 | PCM.PN.HOSP ---
Documented by User: Lynda Dallas FUNERAL LIMOUSINE DRIVER, FUNERAL LIMOUSINE DRIVER-C 11/10/21 13:31 Subjective Subjective Patient seen and examined. On BiPAP. Continues to have shortness of breath. CTA without PE. Objective Data Objective Data Vital Signs: Vital Signs Temp Pulse Resp BP Pulse Ox O2 Del Method O2 Flow Rate 98.1 F 90 20 H 123/92 H 97 Nasal Cannula 5 11/10/21 08:30 11/10/21 11:04 11/10/21 08:30 11/10/21 10:21 11/10/21 11:00 11/10/21 11:00 11/10/21 11:00 FiO2 30 11/10/21 07:50 Oxygen Flow Rate (L/min) 5 Oxygen Delivery Method Nasal Cannula Weight: 117 lb 1.047 oz Body Mass Index (BMI) 20.7 Intake & Output: Intake and Output for Last 24 Hours 11/08/21 11/09/21 11/10/21 23:59 23:59 23:59 Intake Total 1505 / 1505 Output Total 150 / 150 Balance 1355 / 1355 Lab / Micro Data Result Diagrams: 11/10/21 05:25 11/10/21 05:25 Labs: Laboratory Results - last 24 hr 11/09/21 19:43: WBC 16.5 H, RBC 3.43 L, Hgb 11.5 L, Hct 34.8 L, MCV 101.5 H, MCH 33.5 H, MCHC 33.0, RDW Std Deviation 50.6 H, RDW Coeff of Marcelo 13.7, Plt Count 220, MPV 9.0, Immature Gran % (Auto) 0.700, Neut % (Auto) 93.2 H, Lymph % (Auto) 1.8 L, [place] % (Auto) 3.7, Eos % (Auto) 0.4, Baso % (Auto) 0.2, Absolute Neuts (auto) 15.4 H, Absolute Lymphs (auto) 0.29 L, Nucleated RBC % 0, Differential Comment , Platelet Estimate ADEQUATE, RBC Morphology NORM C+C 11/09/21 19:43: Sodium 128 L, Potassium 3.9, Chloride 93 L, Carbon Dioxide 28.0, Anion Gap 7, BUN 22 H, Creatinine 0.84, Estim Creat Clear Calc 52.29, Est GFR (MDRD) Af Amer 86, Est GFR (MDRD) Non-Af 71, BUN/Creatinine Ratio 26.1 H, Glucose 125 H, Calcium 8.9 11/09/21 19:43: Troponin I High Sens 9 11/10/21 05:25: WBC 12.8 H, RBC 3.23 L, Hgb 11.0 L, Hct 33.3 L, MCV 103.1 H, MCH 34.1 H, MCHC 33.0, RDW Std Deviation 52.2 H, RDW Coeff of Marcelo 13.7, Plt Count 189, MPV 9.4, Immature Gran % (Auto) 0.900, Neut % (Auto) 96.7 H, Lymph % (Auto) 0.8 L, [place] % (Auto) 1.4, Eos % (Auto) 0.0, Baso % (Auto) 0.2, Absolute Neuts (auto) 12.4 H, Absolute Lymphs (auto) 0.10 L, Nucleated RBC % 0, Macrocytosis 1+ 11/10/21 05:25: Sodium 129 L, Potassium 4.3, Chloride 92 L, Carbon Dioxide 28.0, Anion Gap 9, BUN 27 H, Creatinine 0.90, Estim Creat Clear Calc 48.80, Est GFR (MDRD) Af Amer 79, Est GFR (MDRD) Non-Af 66, BUN/Creatinine Ratio 29.8 H, Glucose 151 H, Calcium 8.8 11/10/21 05:25: B-Natriuretic Peptide 450.5 H 11/10/21 05:25: Troponin I High Sens 41 11/10/21 07:44: Troponin I High Sens 40 11/10/21 12:13: Troponin I High Sens 35 Micro: Microbiology 11/10/21 06:57 Nasal Secretion SARS-CoV-2 Antigen (Rapid) - Final Radiography Diagnostic Testing: Radiology Impression Chest X-Ray 11/09/21 20:26 IMPRESSION: Normal x-ray examination of the chest. Electronically Signed: Elise De Guzman MD at 21:25 EDT Reading Location ID and State: [id number] / Tel , Service support , Chest CTA 11/10/21 08:52 IMPRESSION: Hyperinflation. Emphysema. No evidence of pulmonary embolism. Patchy infiltrate in the posterior medial segment of the right lower lobe. Electronically Signed: Ryan Yun MD at 10:17 EDT , Rhythm Strip Rhythm Strip: Sinus Tach Rate: 113 Ectopy: None Physical Exam Const alert and oriented x3 Constitutional Narrative: On BiPAP, drowsy Nutritional Appearance: cachectic HEENT normocephalic Mouth: dry mucous membranes Eyes PERRL, EOMs intact bilaterally and conjunctivae normal Neck no lymphadenopathy Resp Auscultation: wheezes and diminished lung sounds Cardio regular rate, regular rhythm and no murmurs Peripheral Pulses: pulses 2+ throughout GI normal to inspection, nondistended, normoactive bowel sounds, non-tender and non-distended Extremity normal to inspection Skin no rashes or lesions noted Lesions: no lesions Rashes: no rashes Trauma: no lacerations or abrasions Neuro CN's II-XII intact bilaterally, no focal motor deficits, no sensory deficits noted and deep tendon reflexes 2+ bilaterally Psych mental status grossly normal and affect normal Assessment & Plan Assessment/Plan (1) COPD exacerbation: PLAN: Plan 1. Acute on chronic hypoxic respiratory failure secondary to exacerbation of COPD-CTA without PE. Pulmonary medicine consulted. Continue IV Solu-Medrol. Continue albuterol and DuoNeb aerosols. Chest x-ray without acute process. IV azithromycin. Continue supplement oxygen to maintain O2 at above 90%. Due to end-stage COPD, will discuss with patient palliative services. 2. Acute on chronic hyponatremia-DC further IV fluids. Trend BMP. If sodium trends down, will add urine studies, cortisol, TSH. 3. CAD-continue aspirin, Plavix, statin. 4. Hypertension-continue amlodipine, lisinopril, metoprolol. 5. History of Crohn's disease-on azathioprine. 6. History of SLE 7. Anxiety/depression-on citalopram. 8. Tobacco dependence-encouraged cessation. DVT prophylaxis-Lovenox subcu This patient was seen by MICHAEL Saldivar under the supervision of Dr. Noriega. Time spent examining patient, reviewing data and subsequent management of care: 15 minutes Documented by User: Dr. Ernst Noriega MD 11/10/21 13:49 Objective Data Lab / Micro Data Result Diagrams: 11/10/21 05:25 11/10/21 05:25 Assessment & Plan Assessment/Plan (1) COPD exacerbation: Charges/Coding Addendum Addendum: Addendum: Dr. Noriega I personally examined the patient and reviewed the chart. I agree with the above. 71-year-old female with end-stage COPD presents to the hospital with continued shortness of breath. Pulmonology has been consulted as well to assist given her end-stage status of her COPD, will continue with azithromycin and a CTA of the chest was obtained which was negative for PEs. We will continue with steroids and bronchodilators. Unfortunately she continues to smoke and does not appear to be interested in quitting. COVID test was negative. Clinical time spent in all aspects of patient care: 18 minutes Visit Charges Inpatient E&M: 17622 Subs Hosp L2
[2021-11-10] MEDS: LORazepam 2 MG/ML Syringe 0.5 MG IV (15:38)
[2021-11-10 19:46] LABS: Allen Test Positive; Base Excess 2 mmol/L (-2 to +2); Bicarbonate 26.9 mmol/L (22-26); Blood Gas Specimen Type ART; O2 Delivery Device Cannula; PO2 161 mmHG (75-100); SITE R Radial; SO2 99 % (95-99); Total Carbon Dioxide 28 mmol/L; pCO2 46.6 mmHg (35-45); pH 7.37 (7.35-7.45)
[2021-11-10] MEDS: Atorvastatin Calcium 80 MG Tablet PO (23:17)
[2021-11-10] MEDS: Pramipexole Di-HCl 0.25 MG Tablet PO (23:17)
[2021-11-10] MEDS: MELATONIN 10 MG TABLET PO (23:17)
[2021-11-11] VITALS (11 sets, daily range): BP systolic 120–127; BP diastolic 72–78; PULSE 69–83; RESP 12–24; TEMP 36.1–37.1; O2SAT 95–100
[2021-11-11] MEDS: Ipratropium/Albuterol Sulfate 3 ML AMPUL.NEB INHALATION ×2 (00:37→06:43)
[2021-11-11] MEDS: tiZANidine HCl 2 MG Tablet 4 MG PO (06:21)
[2021-11-11 06:41] LABS: Absolute Lymphocyte Count 0.14 X10^3/uL (0.83-4.51); Absolute Neutrophil Count 8.5 X10^3/uL (2.0-7.7); Hematocrit 28.5 % (37-47); Hemoglobin 9.6 g/dL (12.0-15.0); Lymphocyte # 0.14 X10^3/ul (0.83-4.51); Lymphocyte % 1.6 % (19-41); Mean Corp Hgb Conc 33.7 g/dL (32-36); Mean Corpuscular Hgb 34.5 pg (27.0-32.0); Mean Corpuscular Volume 102.5 fL (81-99); Mean Platelet Vol. 9.4 fl (6.2-12.0); Monocyte# 0.24 X10^3/uL; Monocyte% 2.7 % (0-10); NRBC Flagged by Analyzer 0 % (0-5); Neutrophil # 8.47 X10^3/uL (2.7-7.7); Neutrophil % 95.1 % (47-70); POSITIVE DIFFERENTIAL YES; Platelet Count 165 K/mm3 (150-450); RBC Distribution Width CV 13.6 % (11.6-14.6); RBC Distribution Width SD 51.9 fl (35.1-43.9); Red Blood Count 2.78 M/mm3 (4.2-5.4); White Blood Count 8.9 K/mm3 (4.4-11.0)
[2021-11-11 06:42] LABS: Differential Indicated SCAN CRITERIA MET
[2021-11-11 07:01] LABS: Macrocytosis 1+
[2021-11-11 07:07] LABS: Anion Gap 7 (5-15); BUN 28 mg/dL (7-18); BUN/Creat Ratio 33.6 RATIO (10-20); Calcium,Total 8.3 mg/dL (8.5-10.1); Chloride 94 mmol/L (98-107); Creatinine, Serum 0.83 mg/dL (0.55-1.02); EST Glomerular Filtration Rate 72 mL/min (>60); Est Glom Filt Rate - Afr Amer 87 mL/min (>60); Estimated Creatinine Clearance 52.92 ml/min; Glucose 136 mg/dL (74-106); Potassium 3.8 mmol/L (3.5-5.1); Sodium Level 130 mmol/L (136-145)
--- NOTE | 2021-11-11 07:37 | PCM.PN.INT ---
Assessment & Plan Assessment/Plan (1) COPD exacerbation: PLAN: Plan RECOMMENDATIONS: 1. Continue to wean supplemental oxygen as tolerated. 2. Continue azithromycin to complete treatment course. 3. Continue scheduled bronchodilators. 4. Continue IV steroids. Anticipate need for prednisone taper at discharge. 5. Encourage incentive spirometer use and mobilize patient as tolerated. IMPRESSIONS: 1. Acute on chronic hypoxemic respiratory failure The patient has a known history of end-stage COPD based upon PFTs completed in 2019. In the interim, the patient has continued to smoke cigarettes daily. She is not currently followed by a manager sustainability, but does have a baseline oxygen requirement of 3 L/min. Recommend continuing supplemental oxygen for saturations at or above 90%. Continue BiPAP therapy as tolerated throughout the day as needed and nightly. Continue scheduled bronchodilators and IV steroids. CTA chest was negative for PE. Infectious work-up has been unrevealing. The patient can likely be discharged back to her nursing facility with a course of azithromycin and a prednisone taper. 2. Chronic tobacco dependency Tobacco cessation counseling was provided. Nicotine replacement therapy can be offered to the patient while admitted to the hospital. 3. History of hypertension/SLE/coronary artery disease/Crohn's disease Complicates care, management, recovery and prognosis. Continue home medications as indicated. This note was generated with [employer] dictation software. It may contain incorrect words, spelling, and punctuation that were not noted in checking the note before signing. Subjective Subjective The patient was seen and examined at the bedside this morning. Events from the last 24 hours have been reviewed. The patient is currently afebrile, hemodynamically stable and maintaining appropriate oxygen saturations on 2 L/min via nasal cannula. The patient is currently documented to be overall net +1.5 L for the hospitalization. Her breathing quality has improved since yesterday. Objective Data Objective Data The patient's most recent lab work, culture data and imaging studies have all been personally reviewed. Infectious work-up has been unrevealing to date. Vital Signs: Vital Signs Temp Pulse Resp BP Pulse Ox O2 Del Method O2 Flow Rate 97.0 F L 77 17 120/72 95 Nasal Cannula 2 11/11/21 04:00 11/11/21 07:00 11/11/21 04:00 11/11/21 04:00 11/11/21 04:00 11/11/21 05:12 11/11/21 05:12 FiO2 26 11/11/21 01:01 Oxygen Flow Rate (L/min) 2 Oxygen Delivery Method Nasal Cannula Weight: 117 lb 1.047 oz Body Mass Index (BMI) 20.7 Intake & Output: Intake and Output for Last 24 Hours 11/09/21 11/10/21 11/11/21 23:59 23:59 23:59 Intake Total 1505 / 1745 495 / 495 Output Total 150 / 450 300 / 300 Balance 1355 / 1295 195 / 195 Lab / Micro Data Attestation: I reviewed the patient's lab results. Result Diagrams: 11/11/21 05:55 11/11/21 05:55 Labs: Laboratory Results - last 24 hr 11/10/21 05:25: B-Natriuretic Peptide 450.5 H 11/10/21 07:44: Troponin I High Sens 40 11/10/21 12:13: Troponin I High Sens 35 11/11/21 05:55: WBC 8.9, RBC 2.78 L, Hgb 9.6 L, Hct 28.5 L, MCV 102.5 H, MCH 34.5 H, MCHC 33.7, RDW Std Deviation 51.9 H, RDW Coeff of Marcelo 13.6, Plt Count 165, MPV 9.4, Immature Gran % (Auto) 0.600, Neut % (Auto) 95.1 H, Lymph % (Auto) 1.6 L, [place] % (Auto) 2.7, Eos % (Auto) 0.0, Baso % (Auto) 0.0, Absolute Neuts (auto) 8.5 H, Absolute Lymphs (auto) 0.14 L, Nucleated RBC % 0, Macrocytosis 1+ 11/11/21 05:55: Sodium 130 L, Potassium 3.8, Chloride 94 L, Carbon Dioxide 29.0, Anion Gap 7, BUN 28 H, Creatinine 0.83, Estim Creat Clear Calc 52.92, Est GFR (MDRD) Af Amer 87, Est GFR (MDRD) Non-Af 72, BUN/Creatinine Ratio 33.6 H, Glucose 136 H, Calcium 8.3 L Micro: Microbiology 11/10/21 19:15 Mucosa - Nasopharyngeal Respiratory Panel (PCR) - Final 11/10/21 06:57 Nasal Secretion SARS-CoV-2 Antigen (Rapid) - Final ABG Data ABG results: ABG 11/10/21 19:42 Specimen Type ART Sample Site R Radial pH 7.37 Bicarbonate Actual 26.9 H Total CO2 28 Base Excess 2 O2 Saturation 99 ABG pCO2 46.6 H ABG pO2 161 H Ash Test Positive O2 Delivery Device Cannula Liter Flow 4.0 Radiography Diagnostic Testing: Radiology Impression Chest CTA 11/10/21 08:52 IMPRESSION: Hyperinflation. Emphysema. No evidence of pulmonary embolism. Patchy infiltrate in the posterior medial segment of the right lower lobe. Electronically Signed: Ryan Yun MD at 10:17 EDT , Rhythm Strip Rhythm Strip: Sinus Tach Rate: 113 Ectopy: None Physical Exam Const alert Constitutional Narrative: Frail and cachectic in appearance. General Appearance: cooperative HEENT normocephalic and head/scalp atraumatic Eyes PERRL and EOMs intact bilaterally Neck supple General: trachea midline Chest Chest Narrative: Increased AP diameter Resp normal respiratory effort Effort and Inspection: able to speak in complete sentences Auscultation: wheezes and diminished lung sounds Cardio regular rate and regular rhythm GI normal to inspection, nondistended, normoactive bowel sounds Extremity no clubbing, cyanosis or edema Extremity Narrative: Wrapped lower extremities. Skin no rashes or lesions noted Neuro CN's II-XII intact bilaterally and no focal motor deficits Psych cooperative and affect normal Charges/Coding Visit Charges Inpatient E&M: 97644 Subs Hosp L3
[2021-11-11] MEDS: azaTHIOprine 50 MG Tablet PO (08:42)
[2021-11-11] MEDS: Aspirin 81 MG TAB.CHEW PO (08:42)
--- NOTE | 2021-11-11 09:27 | CASEMGMT ---
YAJAIRA sent PT/OT evaluations to [facility]. YAJAIRA also inquired why patient needs a pre-cert to return when she is from there and is currently private pay. Patient will wait in the hospital for insurance approval or denial and return regardless of the outcome. Await response. Lynn Escalera OLD COIN DEALER JORDYN
[2021-11-11] MEDS: Citalopram 40 MG TABLET PO (10:56)
[2021-11-11] MEDS: Clopidogrel Bisulfate 75 MG Tablet PO (10:56)
[2021-11-11] MEDS: guaiFENesin 600 MG Tablet PO (10:56)
[2021-11-11] MEDS: Lisinopril 40 MG Tablet PO (10:56)
[2021-11-11] MEDS: Enoxaparin 40 MG/0.4 ML Syringe SC (10:56)
[2021-11-11] MEDS: amLODIPine 10 MG Tablet PO (10:56)
[2021-11-11] MEDS: Metoprolol(XL)Succ 50 MG Tablet PO (10:57)
[2021-11-11] MEDS: Ferrous Sulfate 325 MG Tablet PO (10:57)
--- NOTE | 2021-11-11 11:17 | PCM.TXEXTCAR ---
Documented by User: Lynda Dallas NP, SUBMARINE ELEMENT COORDINATOR-C 11/11/21 11:37 Diet Diet Order/Speech Therapy: 11/09/21 23:13 Diet: Cardiac - Heart Healthy Food consistency:: Regular Liquid Consistency:: Regular/Thin Routine Orders/Code Status Enema Type: Fleetz Enema Frequency: Daily PRN Suppository Type: Dulcolax 10mg Suppository Frequency: Daily PRN O2 Liters per Minute: 2 O2 Frequency: Continuous Keep PO Greater than or Equal to (%): 90 Routine Lab Work: - (Weekly CBC, BMP) Code Status: Full Code Suggestions for Active Care Change Position every (hours): 2 Times a day to sit in chair: 3 Therapies Physical Therapy: Eval and Treat Occupational Therapy: Eval and Treat Problem/Diagnosis (1) COPD exacerbation: Status: Chronic Code(s): J44.1 - Chronic obstructive pulmonary disease with (acute) exacerbation Allergies/Procedures Done in Hospital Allergies No Known Allergies Allergy (Verified 11/09/21 18:54) Procedures: None Type of Care/Length of Stay Estimated LOS: Convalescent Care Less Than 30 days Type of Care Needed: Skilled Rehab Potential: Fair Prognosis: Fair Additional Orders/Day of Discharge H&P will serve as current which was dated: 11/09/21 Day of Discharge: 11/11/21 Dietary and Speech Recommendations Dietitian Recommendations/Changes: Continue Cardiac diet Discharge Plan Admission Admit Date/Time: 11/09/21 22:10 Primary Reason for Your Visit: COPD Attending Provider: Sue Mariano Primary Care Provider: Ludwig Ocasio Consulting Providers: Erika Mensah ; Albert Pineda ; Zuhair Martinez ; Jr Peacock ; Ilene Sandhu NP ; Ernst Noriega Instructions Additional Instructions / Restrictions: Continue BiPAP nightly and as needed. Patient will need follow-up with pulmonary medicine for evaluation for chronic BiPAP. Discharge Orders/Prescriptions Prescriptions: New azithromycin 250 mg Tablet 500 mg PO Q24 3 Days Qty: 0 0RF prednisone 10 mg tablet See Rx Instructions .ROUTE .COMPLEX Qty: 1 0RF Rx Instructions: 60 mg for 3 days, 40 mg for 3 days, 30 mg for 3 days, 20 mg for 3 days, 10 mg for 3 days. Continued amlodipine 10 mg tablet 10 mg PO DAILY ferrous sulfate 325 mg (65 mg iron) tablet 325 mg PO DAILY acetaminophen [Tylenol Extra Strength] 500 mg tablet 1,000 mg PO Q6H PRN (Reason: Pain) citalopram 40 mg tablet 40 mg PO DAILY tizanidine [Zanaflex] 4 mg capsule 4 mg PO QHS PRN (Reason: Muscle Spasm) azathioprine 50 MG tablet 50 mg PO DAILY@0800 clopidogrel 75 MG tablet 75 mg PO DAILY atorvastatin 80 MG tablet 80 mg PO QHS loperamide 2 MG capsule 2 mg PO Q6H PRN PRN (Reason: Diarrhea) albuterol sulfate 1 INHALER inhaler 1 puff INHALATION Q6H PRN PRN (Reason: Wheezing) alendronate 70 MG tablet 70 mg PO Q7D@0700 0RF melatonin 10 MG tablet 10 mg PO QHS 0RF ipratropium-albuterol 0.5 mg-3 mg(2.5 mg base)/3 mL Solution For Nebulization 3 ml inhalation Q6HWA.RT Qty: 0 0RF pramipexole 0.25 mg Tablet 0.25 mg PO QHS Qty: 0 0RF lisinopril 40 mg Tablet 40 mg PO DAILY Qty: 0 0RF guaifenesin 600 mg Tablet Extended Release 600 mg PO BID aspirin 81 mg tablet,chewable 81 mg PO DAILY@0800 Qty: 90 3RF metoprolol succinate 50 mg tablet extended release 24 hr 50 mg PO DAILY Qty: 90 3RF Referrals / Follow Up: Zuhair Martinez DO [Med Staff - Active Staff] - Within 2 Weeks (May see SUBMARINE ELEMENT COORDINATOR/PA) Ludwig Ocasio MD [Primary Care Provider] - In 1 Week Disposition Disposition (needs filled in before D/C Order can be placed): Senior Living Facility Documented by User: Dr. Sue Mariano DO 11/11/21 12:05 Routine Orders/Code Status O2 Frequency: bipap prn and HS Problem/Diagnosis (1) COPD exacerbation: Status: Chronic Code(s): J44.1 - Chronic obstructive pulmonary disease with (acute) exacerbation Allergies/Procedures Done in Hospital Allergies No Known Allergies Allergy (Verified 11/09/21 18:54) Discharge Plan Admission Admit Date/Time: 11/09/21 22:10 Primary Reason for Your Visit: COPD Attending Provider: Sue Mariano Primary Care Provider: Ludwig Ocasio Consulting Providers: Erika Mensah ; Albert Pineda ; Zuhair Martinez ; Jr Peacock ; Ilene Sandhu NP ; Ernst Noriega Instructions Additional Instructions / Restrictions: Continue BiPAP nightly and as needed. Patient will need follow-up with pulmonary medicine for evaluation for chronic BiPAP. Discharge Orders/Prescriptions Prescriptions: New azithromycin 250 mg Tablet 500 mg PO Q24 3 Days Qty: 0 0RF prednisone 10 mg tablet See Rx Instructions .ROUTE .COMPLEX Qty: 1 0RF Rx Instructions: 60 mg for 3 days, 40 mg for 3 days, 30 mg for 3 days, 20 mg for 3 days, 10 mg for 3 days. Continued amlodipine 10 mg tablet 10 mg PO DAILY ferrous sulfate 325 mg (65 mg iron) tablet 325 mg PO DAILY acetaminophen [Tylenol Extra Strength] 500 mg tablet 1,000 mg PO Q6H PRN (Reason: Pain) citalopram 40 mg tablet 40 mg PO DAILY tizanidine [Zanaflex] 4 mg capsule 4 mg PO QHS PRN (Reason: Muscle Spasm) azathioprine 50 MG tablet 50 mg PO DAILY@0800 clopidogrel 75 MG tablet 75 mg PO DAILY atorvastatin 80 MG tablet 80 mg PO QHS loperamide 2 MG capsule 2 mg PO Q6H PRN PRN (Reason: Diarrhea) albuterol sulfate 1 INHALER inhaler 1 puff INHALATION Q6H PRN PRN (Reason: Wheezing) alendronate 70 MG tablet 70 mg PO Q7D@0700 0RF melatonin 10 MG tablet 10 mg PO QHS 0RF ipratropium-albuterol 0.5 mg-3 mg(2.5 mg base)/3 mL Solution For Nebulization 3 ml inhalation Q6HWA.RT Qty: 0 0RF pramipexole 0.25 mg Tablet 0.25 mg PO QHS Qty: 0 0RF lisinopril 40 mg Tablet 40 mg PO DAILY Qty: 0 0RF guaifenesin 600 mg Tablet Extended Release 600 mg PO BID aspirin 81 mg tablet,chewable 81 mg PO DAILY@0800 Qty: 90 3RF metoprolol succinate 50 mg tablet extended release 24 hr 50 mg PO DAILY Qty: 90 3RF Referrals / Follow Up: Zuhair Martinez DO [Med Staff - Active Staff] - Within 2 Weeks (May see SUBMARINE ELEMENT COORDINATOR/PA) Ludwig Ocasio MD [Primary Care Provider] - In 1 Week Disposition Disposition (needs filled in before D/C Order can be placed): Senior Living Facility
--- NOTE | 2021-11-11 11:37 | DS.PCM_ITS ---
Documented by User: Lynda Dallas NP, RETAIL TIRE SALES MANAGER-C 11/11/21 11:41 Providers Date of Admission: 11/09/21 Date of Discharge: 11/11/21 Primary Care Physician: Dr. Ludwig Ocasio MD Consultations 11/10/21 06:23 Consult: Credit Reference Clerk / Pulmonary Medicine Routine Consulting Provider: [facility] Reason for Consult: COPD exacerbation EMERGENT Consult: No MD Notified: Yes Date Notified: 11/10/21 Time Notified: 06:58 Method of Notification: Verbal Reason For Visit: ACUTE ON CHRONIC CHRONIC EXACERBATION Diagnosis Discharge Diagnosis (1) COPD exacerbation: Status: Chronic Code(s): J44.1 - Chronic obstructive pulmonary disease with (acute) exacerbation Medications at Discharge Home Medications atorvastatin 80 mg tablet 80 mg PO QHS blood pressure 08/21/18 azathioprine 50 mg tablet 50 mg PO DAILY@0800 chronic diarrhea 08/21/18 clopidogrel 75 mg tablet 75 mg PO DAILY blood thinner 08/21/18 aspirin 81 mg chewable tablet 81 mg PO DAILY@0800 heart health #90 tabs 03/31/19 citalopram 40 mg tablet 40 mg PO DAILY Check with primary doctor 12/25/19 albuterol sulfate 90 mcg/actuation aerosol inhaler 1 puff inhalation Q6H PRN PRN Wheezing 01/21/20 loperamide 2 mg capsule 2 mg PO Q6H PRN PRN Diarrhea 01/21/20 alendronate 70 mg tablet 70 mg PO Q7D@0700 02/10/20 melatonin 10 mg sublingual tablet 10 mg PO QHS 02/10/20 acetaminophen 500 mg tablet (Tylenol Extra Strength) 1,000 mg PO Q6H PRN Pain 02/16/20 amlodipine 10 mg tablet 10 mg PO DAILY blood pressure 02/16/20 ferrous sulfate 325 mg (65 mg iron) tablet 325 mg PO DAILY supplement 02/16/20 metoprolol succinate 50 mg tablet,extended release 24 hr 50 mg PO DAILY blood pressure #90 tabs 08/23/20 ipratropium 0.5 mg-albuterol 3 mg (2.5 mg base)/3 mL nebulization soln 3 ml inhalation Q6HWA.RT #0 mL 03/18/21 lisinopril 40 mg tablet 40 mg PO DAILY #0 tabs 03/18/21 pramipexole 0.25 mg tablet 0.25 mg PO QHS #0 tabs 03/18/21 tizanidine 4 mg capsule (Zanaflex) 4 mg PO QHS PRN Muscle Spasm 07/25/21 guaifenesin 600 mg tablet,extended release 600 mg PO BID 11/09/21 azithromycin 250 mg tablet 500 mg PO Q24 3 days #0 tabs 11/11/21 prednisone 10 mg tablet See Rx Instructions .Route .COMPLEX #1 TAB 11/11/21 Hospital Course Operations None Procedures None Summary of Care Provided Hospital Course: Patient is a 71-year-old female admitted 11/09/2021 due to shortness of breath. 1.? Acute on chronic hypoxic respiratory failure secondary to exacerbation of COPD-CTA without PE.? Pulmonary medicine consulted during admission.?Chest x-ray without acute process.? IV azithromycin.? Continue supplement oxygen to maintain O2 at above 90%.? Due to end-stage COPD, discussed with patient palliative/hos pice and patient is not open to either of these. Discharged on extended prednisone taper with continued albuterol/DuoNeb aerosol treatments. Continue BiPAP nightly and as needed at SNF. Outpatient follow-up with pulmonary medicine in 2 weeks. Will need further outpatient assessment regarding obt aining chronic BiPAP. 2. Acute on Chronic hyponatremia-now at baseline. Follow BMP as outpatient. 3. CAD-continue aspirin, Plavix, statin. 4. Hypertension-continue amlodipine, lisinopril, metoprolol. 5. History of Crohn's disease-on azathioprine. 6. History of SLE 7. Anxiety/depression-on citalopram. 8.? Tobacco dependence-encouraged cessation. Physical Exam Const alert and oriented x3 Constitutional Narrative: On BiPAP, drowsy Nutritional Appearance: cachectic HEENT normocephalic Mouth: dry mucous membranes Eyes PERRL, EOMs intact bilaterally and conjunctivae normal Neck no lymphadenopathy Resp Auscultation: wheezes and diminished lung sounds Cardio regular rate, regular rhythm and no murmurs Peripheral Pulses: pulses 2+ throughout GI normal to inspection, nondistended, normoactive bowel sounds, non-tender and non-distended Extremity normal to inspection Skin no rashes or lesions noted Lesions: no lesions Rashes: no rashes Trauma: no lacerations or abrasions Neuro CN's II-XII intact bilaterally, no focal motor deficits, no sensory deficits noted and deep tendon reflexes 2+ bilaterally Psych mental status grossly normal and affect normal Patient seen and examined prior to discharge. Physical assessment as noted above. Patient is stable for discharge with follow up recommendations as noted above. This patient was seen by MICHAEL Saldivar under the supervision of Dr. Mariano. Weight / BMI Weight Weight: 117 lb 1.047 oz Body Mass Index (BMI) 20.7 ABG / Lab / Microbiology Data Result Diagrams: 11/11/21 05:55 11/11/21 05:55 Laboratory: Laboratory Results - last 24 hr 11/10/21 12:13: Troponin I High Sens 35 11/11/21 05:55: WBC 8.9, RBC 2.78 L, Hgb 9.6 L, Hct 28.5 L, MCV 102.5 H, MCH 34.5 H, MCHC 33.7, RDW Std Deviation 51.9 H, RDW Coeff of Marcelo 13.6, Plt Count 165, MPV 9.4, Immature Gran % (Auto) 0.600, Neut % (Auto) 95.1 H, Lymph % (Auto) 1.6 L, Simpson % (Auto) 2.7, Eos % (Auto) 0.0, Baso % (Auto) 0.0, Absolute Neuts (auto) 8.5 H, Absolute Lymphs (auto) 0.14 L, Nucleated RBC % 0, Macrocytosis 1+ 11/11/21 05:55: Sodium 130 L, Potassium 3.8, Chloride 94 L, Carbon Dioxide 29.0, Anion Gap 7, BUN 28 H, Creatinine 0.83, Estim Creat Clear Calc 52.92, Est GFR (MDRD) Af Amer 87, Est GFR (MDRD) Non-Af 72, BUN/Creatinine Ratio 33.6 H, Glucose 136 H, Calcium 8.3 L Microbiology: Microbiology 11/10/21 19:15 Mucosa - Nasopharyngeal Respiratory Panel (PCR) - Final 11/10/21 06:57 Nasal Secretion SARS-CoV-2 Antigen (Rapid) - Final ABG: ABG 11/10/21 19:42 Specimen Type ART Sample Site R Radial pH 7.37 Bicarbonate Actual 26.9 H Total CO2 28 Base Excess 2 O2 Saturation 99 ABG pCO2 46.6 H ABG pO2 161 H Ash Test Positive O2 Delivery Device Cannula Liter Flow 4.0 Meaningful Use Info Meaningful Use Diagnoses (Choose all that apply): None applicable Discharge Plan Admission Admit Date/Time: 11/09/21 22:10 Primary Reason for Your Visit: COPD Attending Provider: Sue Mariano Primary Care Provider: Ludwig Ocasio Consulting Providers: Erika Mensah ; Albert Pineda ; Zuhair Martinez ; Jr Peacock ; Ilene Sandhu NP ; Ernst Noriega Instructions Additional Instructions / Restrictions: Continue BiPAP nightly and as needed. Patient will need follow-up with pulmonary medicine for evaluation for chronic BiPAP. Discharge Orders/Prescriptions Prescriptions: New azithromycin 250 mg Tablet 500 mg PO Q24 3 Days Qty: 0 0RF prednisone 10 mg tablet See Rx Instructions .ROUTE .COMPLEX Qty: 1 0RF Rx Instructions: 60 mg for 3 days, 40 mg for 3 days, 30 mg for 3 days, 20 mg for 3 days, 10 mg for 3 days. Continued amlodipine 10 mg tablet 10 mg PO DAILY ferrous sulfate 325 mg (65 mg iron) tablet 325 mg PO DAILY acetaminophen [Tylenol Extra Strength] 500 mg tablet 1,000 mg PO Q6H PRN (Reason: Pain) citalopram 40 mg tablet 40 mg PO DAILY tizanidine [Zanaflex] 4 mg capsule 4 mg PO QHS PRN (Reason: Muscle Spasm) azathioprine 50 MG tablet 50 mg PO DAILY@0800 clopidogrel 75 MG tablet 75 mg PO DAILY atorvastatin 80 MG tablet 80 mg PO QHS loperamide 2 MG capsule 2 mg PO Q6H PRN PRN (Reason: Diarrhea) albuterol sulfate 1 INHALER inhaler 1 puff INHALATION Q6H PRN PRN (Reason: Wheezing) alendronate 70 MG tablet 70 mg PO Q7D@0700 0RF melatonin 10 MG tablet 10 mg PO QHS 0RF ipratropium-albuterol 0.5 mg-3 mg(2.5 mg base)/3 mL Solution For Nebulization 3 ml inhalation Q6HWA.RT Qty: 0 0RF pramipexole 0.25 mg Tablet 0.25 mg PO QHS Qty: 0 0RF lisinopril 40 mg Tablet 40 mg PO DAILY Qty: 0 0RF guaifenesin 600 mg Tablet Extended Release 600 mg PO BID aspirin 81 mg tablet,chewable 81 mg PO DAILY@0800 Qty: 90 3RF metoprolol succinate 50 mg tablet extended release 24 hr 50 mg PO DAILY Qty: 90 3RF Referrals / Follow Up: Zuhair Martinez DO [Med Staff - Active Staff] - Within 2 Weeks (May see RETAIL TIRE SALES MANAGER/PA) Ludwig Ocasio MD [Primary Care Provider] - In 1 Week Disposition Disposition (needs filled in before D/C Order can be placed): [facility] Documented by User: Dr. Sue Mariano DO 11/11/21 12:18 Providers Date of Admission: 11/09/21 Reason For Visit: ACUTE ON CHRONIC CHRONIC EXACERBATION Diagnosis Discharge Diagnosis (1) COPD exacerbation: Status: Chronic Code(s): J44.1 - Chronic obstructive pulmonary disease with (acute) exacerbation Medications at Discharge Home Medications atorvastatin 80 mg tablet 80 mg PO QHS blood pressure 08/21/18 azathioprine 50 mg tablet 50 mg PO DAILY@0800 chronic diarrhea 08/21/18 clopidogrel 75 mg tablet 75 mg PO DAILY blood thinner 08/21/18 aspirin 81 mg chewable tablet 81 mg PO DAILY@0800 heart health #90 tabs 03/31/19 citalopram 40 mg tablet 40 mg PO DAILY Check with primary doctor 12/25/19 albuterol sulfate 90 mcg/actuation aerosol inhaler 1 puff inhalation Q6H PRN PRN Wheezing 01/21/20 loperamide 2 mg capsule 2 mg PO Q6H PRN PRN Diarrhea 01/21/20 alendronate 70 mg tablet 70 mg PO Q7D@0700 02/10/20 melatonin 10 mg sublingual tablet 10 mg PO QHS 02/10/20 acetaminophen 500 mg tablet (Tylenol Extra Strength) 1,000 mg PO Q6H PRN Pain 02/16/20 amlodipine 10 mg tablet 10 mg PO DAILY blood pressure 02/16/20 ferrous sulfate 325 mg (65 mg iron) tablet 325 mg PO DAILY supplement 02/16/20 metoprolol succinate 50 mg tablet,extended release 24 hr 50 mg PO DAILY blood pressure #90 tabs 08/23/20 ipratropium 0.5 mg-albuterol 3 mg (2.5 mg base)/3 mL nebulization soln 3 ml inhalation Q6HWA.RT #0 mL 03/18/21 lisinopril 40 mg tablet 40 mg PO DAILY #0 tabs 03/18/21 pramipexole 0.25 mg tablet 0.25 mg PO QHS #0 tabs 03/18/21 tizanidine 4 mg capsule (Zanaflex) 4 mg PO QHS PRN Muscle Spasm 07/25/21 guaifenesin 600 mg tablet,extended release 600 mg PO BID 11/09/21 azithromycin 250 mg tablet 500 mg PO Q24 3 days #0 tabs 11/11/21 prednisone 10 mg tablet See Rx Instructions .Route .COMPLEX #1 TAB 11/11/21 Hospital Course Summary of Care Provided Minutes Spent on Discharge: 38 Hospital Course: This patient was seen in conjunction with Lynda Dallas NP. The following represents my independent history and for examination. Please see below for addendum the above. Mrs. Garcia is a 71-year-old white female who presented to the emergency department at [facility] on 11/10/2019 2 in the evening complaining of shortness of breath. She reported being on her usual 3 L nasal cannula at her [facility] but felt very short of breath on her b aseline of 2 L. She reported a chronic cough with it had not changed and denied chest pain or changes in sputum production. She did complain of some intermittent wheezing. Her vitals upon presentation showed a BP of 138/84, RR of 25 and oxygen sats of 100% on BIPAP with 5L O2 bleed.. CBC showed hgb of 11.5, wbc of 16.5 and platelets of 220. Chemistry showed sodium of 128 and bicarb of 28; Cr was 0.84 and initial high sensitivity troponin was 9. CXR showed no acute cardiopulmonary process. She was admitted acute on chronic hypoxic respiratory failure due to COPD exacerbation. A COVID test was found to be negative as was a respiratory viral panel. CTA of her chest was negative for pulmonary embolism however she has marked emphysematous changes in bilateral lung structure. She was maintained on antibiotics with IV azithromycin and maintained on this at discharge to complete a course. She was placed on Solu- Medrol 40 mg 3 times daily while hospitalized and placed on an aggressive slow taper at discharge starting with 60 mg daily and weaning slowly to 10 mg daily to off. She utilized BiPAP as needed during her hospital course and utilize this at night. Her overall infectious work-up was unrevealing and it was felt by pulmonary medicine who was consulted during her hospital course that she could be discharged back to her facility on azithromycin and a prednisone taper on 11/11/2021. The patient was back to her baseline oxygen supplementation requirements. We did discuss with her the fact that she has severe end-stage COPD that was diagnosed 2 to 3 years previously and palliative care/hospice conversation was had. The patient was adamant that she is not interested at this time and would like to continue with an aggressive course. We have instructed her to follow-up with pulmonary medicine within the next 2 weeks and her primary care physician within the next 1 to 2 weeks. She was discharged to her ECF in stable condition on 11/11/2021 Discharge diagnoses: Acute on chronic hypoxic respiratory failure Acute exacerbation of COPD Acute on chronic hyponatremia-at baseline Chronic macrocytic anemia CAD Hypertension History of Crohn's disease History of SLE Anxiety Depression Tobacco abuse Physical Exam Const alert, oriented x3 and no apparent distress Constitutional Narrative: Thin upper middle-aged white female sitting up in bed, appears much older than stated age, on her baseline oxygen with no signs of respiratory distress, w atching television and eating breakfast General Appearance: cooperative, comfortable, well kempt, well developed and appears older than stated age Orientation / Consciousness: awake, oriented to person, oriented to place and oriented to time Exam Limitations: no limitations Nutritional Appearance: thin HEENT normocephalic, head/scalp atraumatic, hearing grossly normal bilaterally and moist oral mucous membranes HEENT Narrative: Dentures in place, Mallampati 2, no thrush Eyes PERRL, EOMs intact bilaterally and conjunctivae normal Eyes Narrative: No scleral icterus Neck no lymphadenopathy, supple and no JVD Neck Narrative: Trachea midline, no thyroid enlargement Resp normal respiratory effort, no retractions and no use of accessory muscles Resp Narrative: Diffusely diminished with few scattered end expiratory wheezes Auscultation: wheezes; Negative for crackles or rhonchi Cardio regular rate, regular rhythm, S1 normal heart sound, S2 normal heart sound, no murmurs, no rub, no gallops, no clicks and no JVD GI normal to inspection, nondistended, normoactive bowel sounds, soft to palpation and non-tender; Negative for hepatosplenomegaly Extremity no clubbing, cyanosis or edema Extremity Narrative: Decreased lean muscle mass Skin no wounds, skin turgor normal and no jaundice Skin Narrative: Scattered ecchymotic areas specially noted on bilateral upper extremities Neuro oriented x3, CN's II-XII intact bilaterally, moves all extremities and no focal motor deficits Neuro Narrative: Marked generalized weakness Sensorium / Orientation: awake, alert, oriented to person, oriented to place and oriented to time Speech: speech normal Psych Psych Narrative: Affect is flattened mood seems depressed ABG / Lab / Microbiology Data Result Diagrams: 11/11/21 05:55 11/11/21 05:55 Discharge Plan Admission Admit Date/Time: 11/09/21 22:10 Primary Reason for Your Visit: COPD Attending Provider: Sue Mariano Primary Care Provider: Ludwig Ocasio Consulting Providers: Erika Mensah ; Albert Pineda ; Zuhair Martinez ; Jr Peacock ; Ilene Sandhu NP ; Ernst Noriega Instructions Additional Instructions / Restrictions: Continue BiPAP nightly and as needed. Patient will need follow-up with pulmonary medicine for evaluation for chronic BiPAP. Discharge Orders/Prescriptions Prescriptions: New azithromycin 250 mg Tablet 500 mg PO Q24 3 Days Qty: 0 0RF prednisone 10 mg tablet See Rx Instructions .ROUTE .COMPLEX Qty: 1 0RF Rx Instructions: 60 mg for 3 days, 40 mg for 3 days, 30 mg for 3 days, 20 mg for 3 days, 10 mg for 3 days. Continued amlodipine 10 mg tablet 10 mg PO DAILY ferrous sulfate 325 mg (65 mg iron) tablet 325 mg PO DAILY acetaminophen [Tylenol Extra Strength] 500 mg tablet 1,000 mg PO Q6H PRN (Reason: Pain) citalopram 40 mg tablet 40 mg PO DAILY tizanidine [Zanaflex] 4 mg capsule 4 mg PO QHS PRN (Reason: Muscle Spasm) azathioprine 50 MG tablet 50 mg PO DAILY@0800 clopidogrel 75 MG tablet 75 mg PO DAILY atorvastatin 80 MG tablet 80 mg PO QHS loperamide 2 MG capsule 2 mg PO Q6H PRN PRN (Reason: Diarrhea) albuterol sulfate 1 INHALER inhaler 1 puff INHALATION Q6H PRN PRN (Reason: Wheezing) alendronate 70 MG tablet 70 mg PO Q7D@0700 0RF melatonin 10 MG tablet 10 mg PO QHS 0RF ipratropium-albuterol 0.5 mg-3 mg(2.5 mg base)/3 mL Solution For Nebulization 3 ml inhalation Q6HWA.RT Qty: 0 0RF pramipexole 0.25 mg Tablet 0.25 mg PO QHS Qty: 0 0RF lisinopril 40 mg Tablet 40 mg PO DAILY Qty: 0 0RF guaifenesin 600 mg Tablet Extended Release 600 mg PO BID aspirin 81 mg tablet,chewable 81 mg PO DAILY@0800 Qty: 90 3RF metoprolol succinate 50 mg tablet extended release 24 hr 50 mg PO DAILY Qty: 90 3RF Referrals / Follow Up: Zuhair Martinez DO [Med Staff - Active Staff] - Within 2 Weeks (May see RETAIL TIRE SALES MANAGER/PA) Ludwig Ocasio MD [Primary Care Provider] - In 1 Week Disposition Disposition (needs filled in before D/C Order can be placed): [facility] Charges/Coding Visit Charges Inpatient E&M: 67174 SNF Disch >30 Min
--- NOTE | 2021-11-11 11:45 | PHA.DC.MR ---
Pharmacy Service has performed discharge medication reconciliation for this patient. The patient's discharge medication list was reviewed for discrepancies and discrepancies were resolved. Home Medications atorvastatin 80 mg tablet 80 mg PO QHS blood pressure 08/21/18 azathioprine 50 mg tablet 50 mg PO DAILY@0800 chronic diarrhea 08/21/18 clopidogrel 75 mg tablet 75 mg PO DAILY blood thinner 08/21/18 aspirin 81 mg chewable tablet 81 mg PO DAILY@0800 heart health #90 tabs 03/31/19 citalopram 40 mg tablet 40 mg PO DAILY Check with primary doctor 12/25/19 albuterol sulfate 90 mcg/actuation aerosol inhaler 1 puff inhalation Q6H PRN PRN Wheezing 01/21/20 loperamide 2 mg capsule 2 mg PO Q6H PRN PRN Diarrhea 01/21/20 alendronate 70 mg tablet 70 mg PO Q7D@0700 02/10/20 melatonin 10 mg sublingual tablet 10 mg PO QHS 02/10/20 acetaminophen 500 mg tablet (Tylenol Extra Strength) 1,000 mg PO Q6H PRN Pain 02/16/20 amlodipine 10 mg tablet 10 mg PO DAILY blood pressure 02/16/20 ferrous sulfate 325 mg (65 mg iron) tablet 325 mg PO DAILY supplement 02/16/20 metoprolol succinate 50 mg tablet,extended release 24 hr 50 mg PO DAILY blood pressure #90 tabs 08/23/20 ipratropium 0.5 mg-albuterol 3 mg (2.5 mg base)/3 mL nebulization soln 3 ml inhalation Q6HWA.RT #0 mL 03/18/21 lisinopril 40 mg tablet 40 mg PO DAILY #0 tabs 03/18/21 pramipexole 0.25 mg tablet 0.25 mg PO QHS #0 tabs 03/18/21 tizanidine 4 mg capsule (Zanaflex) 4 mg PO QHS PRN Muscle Spasm 07/25/21 guaifenesin 600 mg tablet,extended release 600 mg PO BID 11/09/21 azithromycin 250 mg tablet 500 mg PO Q24 3 days #0 tabs 11/11/21 prednisone 10 mg tablet See Rx Instructions .Route .COMPLEX #1 TAB 11/11/21
--- NOTE | 2021-11-11 13:02 | CASEMGMT ---
Addendum entered by Lynn Escalera 11/11/21 13:50: [facility] will continuous pickling line pickler helper patient at 3p. RN, legal administrative secretary and RN notified. Patient was also notified and she did not want SW to call any family. Lynn COBB Original Note: [facility] said patient can return. YAJAIRA sent updated information including PT/OT evaluations to [facility]. YAJAIRA spoke with Marci at [facility] and she said Mary Esther is the hospital's contact center consultant for everything. Patient's COVID test from yesterday is sufficient. YAJAIRA will fax orders to Keyla at [facility]. YAJAIRA requested a 3p continuous pickling line pickler helper via cot by [facility]. Awaiting response. YAJAIRA spoke with patient earlier and she is aware she will be returning to [facility] today. Plan: d/c back to [facility] under intermediate level of care. [facility] will try and skill patient once she returns. [facility] will transport patient via cot. Lynn COBB
[2021-11-11] MEDS: 0.9% Saline Lock 10 ML Syringe IV (13:40)
[2021-11-11] MEDS: Albuterol 2.5 MG/3 ML VIAL.NEB. INHALATION (15:15)
--- NOTE | 2021-11-11 17:25 | NURSING ---
report called to lindsay alcaraz for pt transfer back over with no questions voiced
== END 2021-11-11 17:28 | disposition skilled nursing facility (03) | DRG 190 ==
LOC: ED 20:31 → MS3 22:24 → PCU 22:30
PROVIDERS: Family Medicine; Nurse Practitioner Family; Admitting Provider Student in an Organized Health Care Education/Training Program; Emergency Provider Emergency Medicine; PCP Family Medicine; Visit Provider Internal Medicine
DX: J44.1 Chronic obstructive pulmonary disease with (acute) exacerbation (principal); J96.21 Acute and chronic respiratory failure with hypoxia; E87.1 Hypo-osmolality and hyponatremia; I27.21 Secondary pulmonary arterial hypertension; M32.9 Systemic lupus erythematosus, unspecified; I25.10 Atherosclerotic heart disease of native coronary artery without angina pectoris; F17.210 Nicotine dependence, cigarettes, uncomplicated; I10 Essential (primary) hypertension; F32.A Depression, unspecified; F41.9 Anxiety disorder, unspecified; Z71.6 Tobacco abuse counseling; Z79.82 Long term (current) use of aspirin; Z79.02 Long term (current) use of antithrombotics/antiplatelets; Z20.822 Contact with and (suspected) exposure to COVID-19; Z86.73 Personal history of transient ischemic attack (TIA), and cerebral infarction without residual deficits; Z95.0 Presence of cardiac pacemaker; K50.90 Crohn's disease, unspecified, without complications
CPT/HCPCS: 36415; 36600; 71045; 71275; 80048; 82803; 83880; 84484; 85025; 87426; 87633; 93005; 94002; 94003; 94640; 94762; 97162; 97166; 99251; 99285; 99406; J7030; Q9967; A4216; G0463